=== PATIENT | female | born 1965 | race Caucasian/White ===

== ENCOUNTER 2020-06-21 09:01 | Emergency (ER) | payer BC, SELFPAY ==
[2020-06-21] VITALS (9 sets, daily range): BP systolic 126–142; BP diastolic 63–87; PULSE 56–81; RESP 14–20; TEMP 36.6–36.7; O2SAT 98–100
--- NOTE | ~2020-06-21 | XR_ITS ---
XR chest 2V DATE: 06/21/2020 10:13 INDICATION: Mid chest pain radiating to jaw TECHNIQUE: PA and lateral views COMPARISON: 09/11/2019 PA and lateral chest FINDINGS: Surgical clips overlie the right upper quadrant, likely due to cholecystectomy. Surgical cl ips of both breasts. Normal heart size. No hilar or mediastinal enlargement. No pulmonary infiltrate or consolidation, pul monary vascular congestion, pleural effusion or pneumothorax. IMPRESSION: No active cardiopulmonary disease Reviewed, dictated and finalized at location A.
--- NOTE | 2020-06-21 09:10 | ECG_ITS ---
Measurements Intervals [place] Rate: 68 P: 43 [place]: 176 QRS: 51 QRSD: 80 T: 42 QT: 386 QTc: 411 Interpretive Statements SINUS RHYTHM POSSIBLE LEFT ATRIAL ENLARGEMENT BORDERLINE ECG Electronically Signed On 06-21-2020 11:23:59 CDT by Telly Winters D.O.
[2020-06-21 09:36] LABS: Basophils Percent Auto 0.7 % (0.2-1.2); Eosinophils Absolute Auto 0.1 K/mm3 (0-0.3); Hematocrit 38.9 % (37.0-47.0); Hemoglobin 13.1 g/dL (12.0-15.0); Immature Granulocyte Absolute 0.01 K/mm3 (0.00-0.031); Immature Granulocyte Percent A 0.2 % (0-0.5); Lymphocytes Absolute Auto 1.79 K/mm3 (0.9-3.2); Lymphocytes Percent Auto 39.8 % (18.3-44.2); Mean Corpuscular HGB Conc 33.7 g/dl (32-36); Mean Platelet Volume 8.9 fl (7.4-10.4); Monocytes Absolute Auto 0.5 K/mm3 (0.1-0.6); Neutrophils Absolute Auto 2.1 K/mm3 (1.3-6.7); Neutrophils Percent Auto 47.3 % (45.5-73.1); Platelet Count Result 277 k/mm3 (150-375); Red Blood Count 4.37 M/mm3 (4.2-5.4); Red Cell Distribution Width 11.7 % (11.5-14.5); White Blood Count 4.5 K/mm3 (4.5-10.0)
[2020-06-21 09:47] LABS: Anion Gap 8 mmol/L (8-16); Blood Urea Nitrogen 16 mg/dL (7-17); Calcium 9.7 mg/dL (8.4-10.2); Carbon Dioxide 28 mmol/L (22-30); Chloride 103 mmol/L (98-107); Estimated CRCL calculation 85 ml/min; Estimated Glomerular Filt Rate > 60; Glucose 99 mg/dL (65-105); Potassium 3.7 mmol/L (3.4-5.0); Sodium 139 mmol/L (137-145)
[2020-06-21] MEDS: ASPIRIN 81 MG CHEWABLE TABLET 324 MG PO (09:49)
[2020-06-21 09:50] LABS: INR 0.9; Prothrombin Time 12.1 Seconds (11.1-14.7)
[2020-06-21 09:51] LABS: Partial Thromboplastin Time 26.4 SECONDS (22.3-36.8)
[2020-06-21 09:58] LABS: Troponin I < 0.012 ng/mL (0.000-0.034)
[2020-06-21 10:54] LABS: Alanine Aminotransferase 21 U/L (4-35); Albumin Level 4.5 g/dL (3.5-5.1); Alkaline Phosphatase 81 U/L (38-126); Aspartate Amino Transferase 27 U/L (14-36); Bilirubin,Total 0.6 mg/dL (0.2-1.3); Lipase 102 U/L (23-300)
--- NOTE | 2020-06-21 10:56 | ED.CHESTPAIN ---
HPI - Chest Pain General Chief Complaint: Chest Pain Stated Complaint: chest pain Time Seen by Provider: 06/21/20 09:57 Source: patient Mode of arrival: ambulatory Limitations: no limitations History of Present Illness HPI narrative: This patient is a 54 year old female who presents for an evaluation of substernal chest pain . Patient states she developed chest pain while cutting vegetables. This pain radiates to her neck, jaw and mid back. She reports associated lightheaded, but she denies sob, nasuea, vomiting or diaphoresis. This pain has remained constant and she does not know any exacerbating factors. She has not taken anything for pain. She denies history of cardiac disease. She currently rates her pain 01/20. Related Data Home Medications Medication Instructions Recorded Confirmed pentosan polysulfate sodium mg 09/11/19 09/11/19 [Elmiron] amitriptyline 06/21/20 Allergies Allergy/AdvReac Type Severity Reaction Status Date / Time codeine Allergy Intermediate ITCHING/IRENE Verified 09/11/19 21:52 H Review of Systems Review of Systems: All systems reviewed & are unremarkable except as noted in HPI and below Respiratory: Respiratory: Denies cough Gastrointestinal: Gastrointestinal: Denies abdominal pain, Denies diarrhea, Denies nausea and Denies vomiting Musculoskeletal: Musculoskeletal: Reports back pain Neurologic: Reports dizziness PMFSH Past Medical History Medical History (Updated 06/21/20 @ 13:55 by Jackie Fernández MD) Breast cancer Diverticulitis Interstitial cystitis (chronic) without hematuria Surgical History Surgical History (Updated 06/21/20 @ 11:04 by Jackie Fernández MD) History of cholecystectomy Social History Social History (Updated 09/12/19 @ 02:08 by Rosa Shetty PA-C) Smoking status: Never smoker Alcohol intake: never Substance use: never Gender identity (if verbalized by the patient): Female Exam Const: General: alert Orientation/consciousness: patient oriented x3 Eyes: Pupils: Equal, round and reactive pupils present EOM: EOMs intact bilaterally Resp: Effort & Inspection: normal respiratory effort and no retractions Auscultation: clear to auscultation bilaterally Cardio: Rate: regular rate Rhythm: regular rhythm Heart sounds: no murmurs GI: GI Palp: Yes Soft to palpation, Yes Tenderness to palpation present (GI) (epigastric), No Guarding due to palpation present (GI) and No Rigid due to palpation Skin: General skin exam: normal color Rashes: no rashes Neuro: General: patient oriented x3 and moves all extremities Extrem: General: no pedal edema Other: no calf pain; right lower leg mar Psych: Appearance: grossly normal Affect: Other affect and mood findings present (flat affect) Course Reevaluation(s) Reevaluation #1: Patient has improved. I discussed labs have been unremarkable. Negative labs. She is low risk for ACS so she will be discharged home. She was initially TTP epigastric but no repeat exam no tenderness. She is equal pulses bilaterally and not hypertensive. Her pain does not appear to be tearing to suggest aortic etiology . I discussed discharge plan. Date: 06/21/20 Time: 13:47 Vital Signs Vital signs: Vital Signs Temperature 97.8 F 06/21/20 09:10 Pulse Rate 72 06/21/20 09:10 Respiratory Rate 16 06/21/20 09:10 Blood Pressure 142/81 H 06/21/20 09:10 Pulse Oximetry 100 06/21/20 09:10 Temperature 97.9 F 06/21/20 13:31 Pulse Rate 60 06/21/20 14:26 Respiratory Rate 16 06/21/20 14:26 Blood Pressure 134/80 06/21/20 14:26 Pulse Oximetry 100 06/21/20 14:26 MDM - Chest Pain Lab Data Attestation: I reviewed the patient's lab results. Result diagrams: 06/21/20 09:29 06/21/20 09:29 Labs: Lab Results 06/21/20 06/21/20 06/21/20 Range/Units 09:27 09:28 09:29 WBC 4.5 (4.5-10.0) K/mm3 RBC 4.37 (4.2-5.4) M/mm3 Hgb
[2020-06-21] MEDS: NITROGLYCERIN SL 0.4 MG TABLET SUBLINGUAL (11:06)
[2020-06-21 11:14] LABS: D Dimer 0.27 ug/mL (<0.48)
--- NOTE | 2020-06-21 11:26 | PC.NURSE ---
Patient up to the commode at this time.
[2020-06-21] MEDS: BELLADONNA ALK/PHENOB ELIX 10 ML, MAG HYDROX/ALUMINUM HYD/SIMETH 30 ML, LIDOCAINE HCL 2... PO (12:05)
[2020-06-21 13:16] LABS: Troponin I < 0.012 ng/mL (0.000-0.034)
== END 2020-06-21 14:27 | disposition home or self-care (01) ==
PROVIDERS: Emergency Provider General Practice; PCP Physician Assistant
DX: R07.2 Precordial pain (principal); Z85.3 Personal history of malignant neoplasm of breast; R94.31 Abnormal electrocardiogram [ECG] [EKG]
CPT/HCPCS: 36415; 71046; 80048; 80076; 83690; 84484; 85025; 85380; 85610; 85730; 93005; 99284; A9270

== ENCOUNTER 2020-10-11 07:58 | Emergency (ER) | payer BC, SELFPAY ==
--- NOTE | ~2020-10-11 | CT_ITS ---
EXAMINATION: CT abdomen pelvis w con DATE: 10/11/2020 09:13 INDICATION: Lower abdominal pain. Mid back and flank pain. TECHNIQUE: Computed tomography (CT) of the abdomen and pelvis was performed with 100 mL Omnipaque-350 intravenous contrast. Automated exposure control and iterative reconstruction technique were employe d. The dose-length product was 416.47 mGy-cm. COMPARISON: 09/12/2019 FINDINGS: Minimal discoid atelectasis in the left lower lobe. Heart size is normal. No pericardial or pleural e ffusion. Small sliding-type hiatal hernia. Surgical clips at the bilateral breasts with approximately 19 x 8 mm seroma at the right breast. No interval change in mild intra and extrahepatic biliary duct al dilation likely related to prior cholecystectomy with surgical clips at the gallbladder fossa. 12 mm cyst at the caudal margin of the right hepatic lobe. Pancreas, spleen, bilateral adrenal glands an d right kidney are normal. Again seen are multiple regions of focal scarring in the left kidney consi stent with sequela of prior infection or infarct. Bladder, retroflexed uterus and bilateral adnexa ar e unremarkable. Normal appendix. No bowel obstruction. There are several diverticula along the proxim al sigmoid colon without adjacent inflammatory change to suggest diverticulitis. There appears to be mild diffuse colonic wall thickening suspicious for colitis although specificities decreased by the d ecompressed state of the majority of the colon. No free intraperitoneal gas or fluid. No pathological ly enlarged abdominal or pelvic lymphadenopathy. Small fat-containing umbilical hernia. Negligible at herosclerotic plaque along the normal caliber abdominal aorta. Moderate lumbar and lower thoracic spo ndylosis. Chronic mild anterior wedging at T10-T12. IMPRESSION: 1. Suggestion of diffuse mild colonic wall thickening raising concern for colitis which could be infe ctious, inflammatory or less likely ischemic in etiology. Specificity is decreased by the decompresse d state of the majority of the colon. 2. Scattered left renal cortical atrophy likely sequela of chronic infection or infarction. 3. Small sliding-type hiatal hernia. 4. Small fat-containing umbilical hernia. Reviewed, dictated and finalized at location B. [facility] STEW[facility] IMPRESSION: 1. Suggestion of diffuse mild colonic wall thickening raising concern for colit is which could be infectious, inflammatory or less likely ischemic in etiology. Specificity is decreased by the decompressed state of the majority of the colo n. 2. Scattered left renal cortical atrophy likely sequela of chronic infection or infarction. 3. Small sliding-type hiatal hernia. 4. Small fat-containing umbilical hernia.
[2020-10-11 08:00] VITALS: BP 142/88; PULSE 78; RESP 16; TEMP 36.1; O2SAT 100
--- NOTE | 2020-10-11 08:28 | ECG_ITS ---
Measurements Intervals [place] Rate: 66 P: 27 [place]: 171 QRS: 31 QRSD: 88 T: 41 QT: 390 QTc: 409 Interpretive Statements SINUS RHYTHM INCOMPLETE RIGHT BUNDLE BRANCH BLOCK LOW QRS VOLTAGE IN PRECORDIAL LEADS BORDERLINE ECG Electronically Signed On 10-11-2020 9:01:47 DIAGNOSTIC IMAGING MANAGER by Telly Winters D.O.
[2020-10-11] MEDS: SODIUM CHLORIDE 0.9% IV 1,000 ML 999 ML IV CONT (08:38)
[2020-10-11 08:39] VITALS: BP 139/88; PULSE 81; RESP 14; O2SAT 98
[2020-10-11 08:41] LABS: Basophils Percent Auto 0.4 % (0.2-1.2); Eosinophils Absolute Auto 0.1 K/mm3 (0-0.3); Eosinophils Percent Auto 1.7 % (0-4.4); Hematocrit 43.5 % (37.0-47.0); Hemoglobin 14.4 g/dL (12.0-15.0); Immature Granulocyte Absolute 0.02 K/mm3 (0.00-0.031); Immature Granulocyte Percent A 0.4 % (0-0.5); Lymphocytes Absolute Auto 1.75 K/mm3 (0.9-3.2); Lymphocytes Percent Auto 37.2 % (18.3-44.2); Mean Corpuscular HGB Conc 33.1 g/dl (32-36); Mean Corpuscular Hemoglobin 30.2 pg (26-34); Mean Corpuscular Volume 91.2 fl (80-100); Mean Platelet Volume 8.9 fl (7.4-10.4); Monocytes Absolute Auto 0.4 K/mm3 (0.1-0.6); Monocytes Percent Auto 8.3 % (2.6-8.5); Neutrophils Absolute Auto 2.4 K/mm3 (1.3-6.7); Platelet Count Result 306 k/mm3 (150-375); Red Blood Count 4.77 M/mm3 (4.2-5.4); Red Cell Distribution Width 11.9 % (11.5-14.5); White Blood Count 4.7 K/mm3 (4.5-10.0)
[2020-10-11 08:44] LABS: Add Urine Microscopic? NO; Appearance Urine Clear (Clear); Bilirubin Urine Negative (Negative); Blood Urine Negative (Negative); Color Urine Straw (Yellow); Glucose Urine UA Negative (Negative); Ketones Urine Negative (Negative); Leukocyte Esterase Ur Negative LEU/UL (Negative); Nitrate Urine Negative (Negative); Protein Urine Negative (Negative); Specific Grav Ur 1.009 (1.001-1.035); Urobilinogen Urine Negative mg/dL (<2.0)
[2020-10-11 08:54] LABS: Alanine Aminotransferase 24 U/L (4-35); Albumin Level 4.9 g/dL (3.5-5.1); Alkaline Phosphatase 68 U/L (38-126); Anion Gap 8 mmol/L (8-16); Aspartate Amino Transferase 31 U/L (14-36); Bilirubin,Total 0.9 mg/dL (0.2-1.3); Blood Urea Nitrogen 15 mg/dL (7-17); Calcium 10.1 mg/dL (8.4-10.2); Carbon Dioxide 31 mmol/L (22-30); Chloride 100 mmol/L (98-107); Estimated CRCL calculation 84 ml/min; Estimated Glomerular Filt Rate > 60; Glucose 101 mg/dL (65-105); Lipase 118 U/L (23-300); Potassium 3.7 mmol/L (3.4-5.0); Sodium 139 mmol/L (137-145)
[2020-10-11 08:55] LABS: Lactic Acid Reflex 1.2 mmol/L (0.7-2.1)
[2020-10-11 08:58] LABS: CRP < 0.5 mg/dL (<1.0)
--- NOTE | 2020-10-11 08:59 | ED.BACK ---
HPI - Back Pain/Injury General Chief Complaint: Back Pain/Injury Stated Complaint: bilat flank and abd pain Time Seen by Provider: 10/11/20 08:08 Source: patient Mode of arrival: ambulatory Limitations: no limitations History of Present Illness HPI Narrative: This patient is a 55 year old female who presents for evaluation of bilateral flank pain and abdominal pain. She reports having squeezing pain for 3 days. She reports pain is located bilateral flank and her entire abdomen. She reports associated nausea but no vomiting, diarrhea or fever. She also denies cough, sob. She denies urinary symptoms. She states she was seen by her urologist, and she was told her UA was normal and to follow up with PCP. Related Data Home Medications Medication Instructions Recorded Confirmed pentosan polysulfate sodium mg 09/11/19 09/11/19 [Elmiron] cyclobenzaprine mg 10/11/20 Allergies Allergy/AdvReac Type Severity Reaction Status Date / Time codeine Allergy Intermediate ITCHING/IRENE Verified 10/11/20 08:12 H Review of Systems Review of Systems: All systems reviewed & are unremarkable except as noted in HPI and below Constitutional: Constitutional: Denies chills and Denies fever(s) Respiratory: Respiratory: Denies cough and Denies dyspnea Gastrointestinal: Gastrointestinal: Reports abdominal pain, Denies diarrhea, Reports nausea and Denies vomiting Genitourinary: Genitourinary: Denies hematuria, Denies dysuria and Reports flank pain Musculoskeletal: Musculoskeletal: Reports back pain PMFSH Past Medical History Medical History Breast cancer Diverticulitis Interstitial cystitis (chronic) without hematuria Surgical History Surgical History History of cholecystectomy Social History Social History (Updated 09/12/19 @ 02:08 by Rosa Shetty PA-C) Smoking status: Never smoker Alcohol intake: never Substance use: never Gender identity (if verbalized by the patient): Female Exam Narrative: Exam Narrative: GENERAL: Well-appearing, well-nourished, and in no acute distress. HEAD: Normocephalic, atraumatic EYES: PERRLA and EOMI, conjunctiva clear without discharge THROAT:Mucous membranes moist, Oropharynx normal without erythema, exudate, peritonsillar swelling or fluctuance NECK: Supple, without lymphadenopathy or mass RESPIRATORY: No respiratory distress, Airway patent, Respirations non-labored, Clear to auscultation without rales, rhonchi or wheeze HEART: Regular rate and rhythm. No murmur heard. Normal peripheral pulses. ABDOMEN: Soft, Diffuse, nondistended, normal active bowel sounds. No masses. No rebound or guarding, No organomegaly. EXTREMITIES: No edema, normal strength with full range of motion. SKIN: Warm, dry, normal color without rash NEURO: Alert and oriented x3. CN 2-12 grossly intact. No focal deficits. PSYCH: Normal mood and affect. : General: Yes CVA tenderness Back/Spine/Pelvis: Other: no midline spine tenderness Course Reevaluation(s) Reevaluation #1: I Discussed with patient that labs are unremarkable. I read the CT report to Her regarding left kidney abnormalities and possible colitis. I discussed plan to discharge with antibiotics and follow up with PCP. She will also follow up with her GI. Date: 10/11/20 Time: 11:18 Vital Signs Vital signs: Vital Signs Temperature 97 F L 10/11/20 08:00 Pulse Rate 78 10/11/20 08:00 Respiratory Rate 16 10/11/20 08:00 Blood Pressure 142/88 H 10/11/20 08:00 Pulse Oximetry 100 10/11/20 08:00 Temperature 97 F L 10/11/20 08:00 Pulse Rate 61 10/11/20 10:08 Respiratory Rate 12 10/11/20 10:08 Blood Pressure 144/87 H 10/11/20 10:08 Pulse Oximetry 100 10/11/20 10:08 MDM - Back Pain/Injury Lab Data Attestation: I reviewed the patient's lab results. Result diagrams: 10/11/20 08:
[2020-10-11] MEDS: DICYCLOMINE HCL INJ 20 MG/2 ML VIAL IM (10:07)
[2020-10-11 10:08] VITALS: BP 144/87; PULSE 61; RESP 12; O2SAT 100
== END 2020-10-11 11:44 | disposition home or self-care (01) ==
PROVIDERS: Emergency Provider General Practice; PCP Physician Assistant
DX: K52.9 Noninfective gastroenteritis and colitis, unspecified (principal); Z85.3 Personal history of malignant neoplasm of breast; I45.10 Unspecified right bundle-branch block
CPT/HCPCS: 36415; 74177; 80053; 81003; 81025; 83605; 83690; 85025; 86140; 93005; 96360; 96372; 99284; J0500; J7030; Q9967

== ENCOUNTER 2023-01-08 17:42 | Emergency (ER) | payer OTHER, SELFPAY ==
[2023-01-08 18:07] VITALS: BP 141/88; PULSE 109; RESP 19; TEMP 37.3; O2SAT 100
--- NOTE | 2023-01-08 18:13 | ED.FEMALEGU ---
HPI - Female Genitourinary General Chief complaint: Urogenital-Female Stated complaint: UTI Time Seen by Provider: 01/08/23 18:04 Source: patient and RN notes reviewed Mode of arrival: ambulatory Limitations: no limitations History of Present Illness HPI Narrative: Patient presents today complaining of a 3 day history of lower abdominal discomfort, nausea, and urinary frequency with left low back pain that started today. Denies dysuria, hematuria, urinary frequency. She called her urologist's office twice this week and they could not get her in. History of interstitial cystitis, for which she takes Elmiron. States her current symptoms do not feel like previous IC flares. Patient was on Bactrim, then Augmentin in November for UTI. Related Data Home Medications Medication Instructions Recorded Confirmed pentosan polysulfate sodium 100 mg 100 mg PO DAILY 09/11/19 01/08/23 capsule (Elmiron) Allergies Allergy/AdvReac Type Severity Reaction Status Date / Time codeine Allergy Intermediate ITCHING/IRENE Verified 01/08/23 17:58 H Review of Systems Review of Systems: CONSTITUTIONAL: Denies body aches, fever, chills, or sweats. EYES: Denies visual changes, redness, or discharge. ENT: Denies rhinorrhea, congestion, sore throat, or otalgia. CARDIOVASCULAR: Denies chest pain, palpitations, or edema. RESPIRATORY: Denies cough or dyspnea. GASTROINTESTINAL: Denies vomiting, or diarrhea.+ lower abdominal pain, nausea GENITOURINARY: Denies dysuria or hematuria.+ urgency SKIN: Denies rash, itching, or wounds. MUSCULOSKELETAL: Denies joint pain, or myalgia.+ left low back pain NEUROLOGIC: Denies headache, numbness, tingling, or weakness. PSYCH: Denies depression or anxiety. [facility] Past Medical History Medical History Breast cancer Diverticulitis Interstitial cystitis (chronic) without hematuria Surgical History Surgical History History of cholecystectomy Social History Social History Smoking status: Never smoker Alcohol intake: never Substance use: never Living arrangements: with family Occupation/Education: unemployed Gender identity (if verbalized by the patient): Female Comments At time of signature, I have reviewed and agree with nursing past medical, surgical, social and family history unless otherwise noted. Please see nursing chart for further information. There is no relevant family history pertinent to the presenting complaint Exam Narrative: GENERAL: Well-appearing, well-nourished, and in no acute distress. HEAD: Normocephalic, atraumatic. EYES: EOMI. No redness or drainage. Conjunctivae normal. ENT: Mucous membranes pink and moist. NECK: Normal AROM. CHEST: No respiratory distress. EXTREMITIES: Normal range of motion. No edema. SKIN: Warm, dry, no rash. Capillary refill normal. Normal skin turgor. NEURO: No focal deficits. Alert and oriented x3. Gait steady. PSYCH: Normal affect. No signs of depression or anxiety. Course Course Level of Care: Express Care Visit Vital Signs Vital signs: Vital Signs Temperature 99.2 F 01/08/23 18:07 Pulse Rate 109 H 01/08/23 18:07 Respiratory Rate 19 01/08/23 18:07 Blood Pressure 141/88 H 01/08/23 18:07 Pulse Oximetry 100 01/08/23 18:07 Oxygen Delivery Room Air 01/08/23 18:07 Temperature 99.2 F 01/08/23 18:07 Pulse Rate 109 H 01/08/23 18:07 Respiratory Rate 19 01/08/23 18:07 Blood Pressure 141/88 H 01/08/23 18:07 Pulse Oximetry 100 01/08/23 18:07 Oxygen Delivery Room Air 01/08/23 18:07 Reviewed. Pt has been instructed to follow up with her PCP regarding her elevated blood pressure today. MDM - Female Genitourinary MDM Narrative Medical decision making narrative: Symptoms consistent with acute UTI. Will
== END 2023-01-08 18:22 | disposition home or self-care (01) ==
PROVIDERS: Emergency Provider Nurse Practitioner; PCP Physician Assistant
DX: N30.01 Acute cystitis with hematuria (principal); Z85.3 Personal history of malignant neoplasm of breast
CPT/HCPCS: 81003; 87086; 87088; 99213; G0463

== ENCOUNTER 2023-01-15 10:37 | Observation (INO) | payer OTHER, SELFPAY ==
--- NOTE | ~2023-01-15 | CT_ITS ---
EXAMINATION: CT abdomen pelvis w con DATE: 01/15/2023 12:34 INDICATION: Lower abdominal pain. TECHNIQUE: Computed tomography (CT) of the abdomen and pelvis was performed with 100 mL Omnipaque 350 intravenous contrast. Automated exposure control and iterative reconstruction technique were employe d. The dose-length product was 443.22 mGy-cm. COMPARISON: CT abdomen and pelvis 10/11/2020 FINDINGS: The visualized portions of the lung bases demonstrate mild atelectasis. No pleural effusion . The heart size is normal. No pericardial effusion. There is a small sliding hiatal hernia. There is a 1.8 cm cyst in the liver. There is chronic moderate intrahepatic biliary duct dilatation, likely s econdary to cholecystectomy. There is a chronic 5 mm cyst in the liver. The spleen and pancreas are n ormal. There is a 7 mm cyst in right kidney. There is moderate atrophy of left kidney. A calcificatio n in left kidney is likely parenchymal. There are scattered diverticula in the colon. There is fat st randing around the sigmoid colon with wall thickening and 9 mm intramural abscess, consistent with di verticulitis. No perforation. The appendix is normal. There are no dilated loops of bowel. There is a n umbilical hernia containing fat and robledo of two loops of small bowel. There are no pathologically enlarged lymph nodes. There is no free intraperitoneal fluid. There is moderate lumbar spondylosis. IMPRESSION: 1. Acute sigmoid diverticulitis with 9 mm intramural abscess. No perforation. 2. Umbilical hernia containing robledo of nonobstructed small bowel. Reviewed, dictated and finalized at location A.
[2023-01-15 11:05] VITALS: BP 144/83; PULSE 79; RESP 16; TEMP 36.2; O2SAT 100
[2023-01-15 12:12] LABS: Basophils Percent Auto 0.4 % (0.2-1.2); Eosinophils Absolute Auto 0.1 K/mm3 (0-0.3); Eosinophils Percent Auto 1.7 % (0-4.4); Hematocrit 40.3 % (37.0-47.0); Hemoglobin 13.2 g/dL (12.0-15.0); Immature Granulocyte Absolute 0.03 K/mm3 (0.00-0.031); Immature Granulocyte Percent A 0.4 % (0-0.5); Lymphocytes Absolute Auto 1.66 K/mm3 (0.9-3.2); Mean Corpuscular HGB Conc 32.8 g/dl (32-36); Mean Corpuscular Hemoglobin 29.1 pg (26-34); Mean Platelet Volume 8.7 fl (7.4-10.4); Monocytes Absolute Auto 0.6 K/mm3 (0.1-0.6); Monocytes Percent Auto 7.9 % (2.6-8.5); Neutrophils Absolute Auto 4.5 K/mm3 (1.3-6.7); Neutrophils Percent Auto 65.6 % (45.5-73.1); Platelet Count Result 369 k/mm3 (150-375); Red Blood Count 4.53 M/mm3 (4.2-5.4); Red Cell Distribution Width 11.8 % (11.5-14.5); White Blood Count 6.9 K/mm3 (4.5-10.0)
[2023-01-15 12:15] LABS: Appearance Urine Clear (Clear); Bacteria Urine None Seen /hpf; Bilirubin Urine Negative (Negative); Blood Urine Negative (Negative); Color Urine Yellow (Yellow); Glucose Urine UA Negative (Negative); Ketones Urine Negative (Negative); Leukocyte Esterase Ur Trace LEU/UL (Negative); Nitrate Urine Negative (Negative); Non Pathogenic Casts 0-2; Protein Urine Negative (Negative); RBC Urine 0-2 /hpf (0-2); Specific Grav Ur 1.004 (1.001-1.035); Squamous Epithelial Cell Urine None seen /hpf (Few); Urobilinogen Urine 0.2 mg/dL (<2.0); WBC Urine 0-5 /hpf
[2023-01-15 12:17] LABS: Alanine Aminotransferase 25 U/L (6-35); Albumin Level 4.7 g/dL (3.5-5.1); Alkaline Phosphatase 90 U/L (38-126); Anion Gap 9 mmol/L (8-16); Aspartate Amino Transferase 26 U/L (14-36); Bilirubin,Total 0.6 mg/dL (0.2-1.3); Blood Urea Nitrogen 11 mg/dL (7-17); Calcium 10.1 mg/dL (8.4-10.2); Carbon Dioxide 29 mmol/L (22-30); Chloride 101 mmol/L (98-107); Estimated CRCL calculation 110 ml/min; Estimated Glomerular Filt Rate > 60; Glucose 96 mg/dL (65-110); Potassium 4.1 mmol/L (3.4-5.0); Sodium 139 mmol/L (137-145)
[2023-01-15 12:19] LABS: Add Urine Microscopic? YES
--- NOTE | 2023-01-15 12:52 | ED.GENADULT ---
HPI - General Adult General Chief complaint: Urogenital-Female Stated complaint: urinary pain, blood in urine Time Seen by Provider: 01/15/23 11:44 History of Present Illness HPI narrative: Patient is a 57-year-old female who presents ER with lower abdominal pain. Began having discomfort about a week ago. Has history of interstitial cystitis and thought she may have a UTI. Was placed on cephalexin. Symptoms have not improved. She does have some urinary frequency. No dysuria. No fevers or chills or sweats. Patient reports history of diverticulitis and noticed pain became more localized on the left side over the last day. No alleviating factors for her discomfort. No nausea vomiting or diarrhea. Related Data Home Medications Medication Instructions Recorded Confirmed pentosan polysulfate sodium 100 mg 100 mg PO DAILY 09/11/19 01/08/23 capsule (Elmiron) Allergies Allergy/AdvReac Type Severity Reaction Status Date / Time codeine Allergy Intermediate ITCHING/IRENE Verified 01/15/23 10:38 H Review of Systems Review of Systems: All systems reviewed & are unremarkable except as noted in HPI and below Constitutional: Constitutional: Denies chills, Denies fatigue and Denies fever(s) ENT: Denies nasal congestion and Denies sore throat Cardiovascular: Cardiovascular: Denies chest pain, Denies rapid heart rate and Denies radiating jaw, neck or arm pain Respiratory: Respiratory: Denies cough and Denies dyspnea Gastrointestinal: Gastrointestinal: Reports abdominal pain, Denies diarrhea, Denies nausea and Denies vomiting Genitourinary: Genitourinary: Reports hematuria, Reports nocturia and Denies urinary incontinence PMFSH Past Medical History Medical History Breast cancer Diverticulitis Interstitial cystitis (chronic) without hematuria Surgical History Surgical History History of cholecystectomy Social History Social History Smoking status: Never smoker Alcohol intake: never Substance use: never Living arrangements: with family Occupation/Education: unemployed Gender identity (if verbalized by the patient): Female Exam Narrative: GENERAL: Well-appearing, well-nourished, and in no acute distress. HEAD: Normocephalic, atraumatic. EYES: PERRL and EOMI. ENT: Mucous membranes moist. CHEST: Clear to auscultation. No respiratory distress. HEART: Regular rate and rhythm. Normal peripheral pulses. ABDOMEN: Soft, tender palpation bilateral lower quadrants with guarding on the left side and significant tenderness on the right as well, nondistended. EXTREMITIES: Normal range of motion. No edema. SKIN: Warm, dry, no rash. NEURO: Alert and oriented x3. PSYCH: Normal mood and affect. Course Course Emergency Course: Discussed the results of imaging with the patient. Discussed also with general surgery who will admit the patient primarily for IV antibiotics. Request the patient be kept n.p.o. with ice chips. Vital Signs Vital signs: Vital Signs Temperature 97.1 F L 01/15/23 11:05 Pulse Rate 79 01/15/23 11:05 Respiratory Rate 16 01/15/23 11:05 Blood Pressure 144/83 H 01/15/23 11:05 Pulse Oximetry 100 01/15/23 11:05 Oxygen Delivery Room Air 01/15/23 11:05 Temperature 97.1 F L 01/15/23 11:05 Pulse Rate 60 01/15/23 13:43 Respiratory Rate 16 01/15/23 13:43 Blood Pressure 157/86 H 01/15/23 13:43 Pulse Oximetry 100 01/15/23 13:43 Oxygen Delivery Room Air 01/15/23 11:05 Medical Decision Making Vital Signs Vital Signs: Vital Signs Temperature 97.1 F L 01/15/23 11:05 Pulse Rate 79 01/15/23 11:05 Respiratory Rate 16 01/15/23 11:05 Blood Pressure 144/83 H 01/15/23 11:05 Pulse Oximetry 100 01/15/23 11:05 Oxygen Delivery Room Air 01/15/23 11:05
[2023-01-15] MEDS: PIPERACILLN/TAZ 3.375GM/NS50ML 3.375 GM/50 ML BAG IVPB ×2 (13:05→17:28)
[2023-01-15 13:43] VITALS: BP 157/86; PULSE 60; RESP 16; O2SAT 100
--- NOTE | 2023-01-15 14:59 | ADMGEN ---
This patient, Alana Olguin, was admitted to [facility] Room 300-01. Patient/family oriented to hospital policies and general routines including ID bracelet, bed and alarms, visiting hours, pain management, procedures, bathroom and other care routines, personal items, smoking policy, room service/diet, and visiting hours. Information on how to activate the Rapid Response Team has been discussed. Patient/Family are encouraged to report perceived risks to care and to ask questions if they do not understand what they are told or what they should do.
--- NOTE | 2023-01-15 15:26 | PM.IMHP ---
H&P: HPI History of Present Illness Date/Time: 01/15/23 15:26 Chief Complaint: Lower abdominal pain Narrative: The patient is a 57-year-old woman who has a chronic diagnosis of interstitial cystitis. She started having lower abdominal pain about a week ago. It was not particularly severe but was persistent. She thought this was related to her interstitial cystitis. She took a full course of oral antibiotics which she just finished yesterday. Pain was no better in fact it seemed in some ways worse. Since her pain was no better and her urine culture had been negative, she decided to come to the emergency room today. In the emergency room she was noted to have normal vital signs. Her white blood cell count and urinalysis were also normal. She did have tenderness low, almost suprapubic, in both lower quadrants with guarding. She had a CT scan of the abdomen pelvis that showed evidence of sigmoid diverticulitis with a 9 mm intramural abscess. Patient has been started on IV Zosyn antibiotics. She is admitted now for further care. She has had at least 2 episodes of diverticulitis in the past. Some old records show an episode in 2017. She reports having had a colonoscopy in [address] Ha at [facility]. The colonoscopy was negative for any polyps. Review of Systems Review of Systems: All systems reviewed & are unremarkable except as noted in HPI and below (HPI and those items noted below) Constitutional: Constitutional: Denies chills and Denies fever(s) Cardiovascular: Cardiovascular: Denies chest pain, Denies diaphoresis, Denies dyspnea and Denies paroxysmal nocturnal dyspnea Respiratory: Respiratory: Denies chest congestion, Denies cough and Denies dyspnea Integumentary/Breasts: Skin/Breast: Denies lesions and Denies rash [facility] Past Medical History Medical History (Updated 01/15/23 @ 17:21 by Catrachito Arce MD) Diverticulitis Interstitial cystitis (chronic) without hematuria Surgical History Surgical History (Updated 01/15/23 @ 17:25 by Catrachito Arce MD) Breast cancer Status post lumpectomy and axillary dissection with postoperative radiation therapy and chemotherapy. History of cholecystectomy Laparoscopic cholecystectomy 2009 at [facility] Social History Social History Smoking status: Never smoker Alcohol intake: never Substance use: never Substance use type: does not use Lack of Transportation: No Lack of Food: Never True Current Housing: I Have Housing Concerned About Future Housing: No Difficulty Paying Gas/Electric Bills: No Difficulty Paying for Meds: No Currently Unemployed: No Education: Don't Know Difficulty w/ Childcare or Family Care: No Living arrangements: with family Occupation/Education: unemployed Gender identity (if verbalized by the patient): Female Spiritual care concerns: No Meds Home Medications and Allergies Home Medications Medication Instructions Recorded Confirmed Type pentosan polysulfate sodium 100 mg 100 mg PO DAILY 09/11/19 01/15/23 History capsule (Elmiron) Allergies Allergy/AdvReac Type Severity Reaction Status Date / Time codeine Allergy Intermediate ITCHING/IRENE Verified 01/15/23 10:38 H Vital Signs Vital Signs - 24 hr 01/15/23 11:05 01/15/23 13:43 Temperature 36.2 C L Pulse Rate 79 60 Respiratory Rate 16 16 Blood Pressure 144/83 H 157/86 H Pulse Oximetry 100 100 Oxygen Delivery Room Air Exam Const: General: cooperative, comfortable, no acute distress, alert and awake Nutritional Appearance: well nourished Orientation/consciousness: patient oriented x3 and No confusion HENMT: Head: normocephalic and atraumatic Mouth: Yes Normal oral and palatal mucosa present Eyes: Conjunctivae: conjunctivae normal Pupils: Equal, round and reactive pupils present EOM: EOMs intact bilaterally Neck: Neck: normal visual inspection, no l
[2023-01-15] MEDS: MORPHINE SULFATE (*CRX) 4 MG/ML INJ 2 MG IV PUSH ×2 (15:47→20:01)
[2023-01-15] MEDS: SODIUM CHLORIDE 0.9% IV 1,000 ML 125 ML IV CONT (15:47)
[2023-01-15 21:50] VITALS: BP 144/77; PULSE 61; RESP 18; TEMP 36.2; O2SAT 99
[2023-01-16] MEDS: SODIUM CHLORIDE 0.9% IV 1,000 ML 125 ML IV CONT ×2 (00:04→10:23)
[2023-01-16] MEDS: PIPERACILLN/TAZ 3.375GM/NS50ML 3.375 GM/50 ML BAG IVPB ×4 (00:04→17:23)
[2023-01-16 05:46] VITALS: BP 137/62; PULSE 77; RESP 16; TEMP 36.2; O2SAT 97
[2023-01-16] MEDS: ONDANSETRON INJ 4 MG/2 ML VIAL IV PUSH (06:36)
[2023-01-16 08:50] LABS: Hematocrit 38.1 % (37.0-47.0); Hemoglobin 12.3 g/dL (12.0-15.0); Mean Corpuscular HGB Conc 32.3 g/dl (32-36); Mean Corpuscular Hemoglobin 29.4 pg (26-34); Mean Corpuscular Volume 91.1 fl (80-100); Mean Platelet Volume 8.9 fl (7.4-10.4); Platelet Count Result 290 k/mm3 (150-375); Red Blood Count 4.18 M/mm3 (4.2-5.4); Red Cell Distribution Width 11.9 % (11.5-14.5); White Blood Count 5.4 K/mm3 (4.5-10.0)
[2023-01-16 09:14] LABS: Anion Gap 7 mmol/L (8-16); Blood Urea Nitrogen 10 mg/dL (7-17); Calcium 9.2 mg/dL (8.4-10.2); Carbon Dioxide 30 mmol/L (22-30); Chloride 104 mmol/L (98-107); Estimated CRCL calculation 85 ml/min; Estimated Glomerular Filt Rate > 60; Glucose 95 mg/dL (65-110); Potassium 4.1 mmol/L (3.4-5.0); Sodium 141 mmol/L (137-145)
[2023-01-16] MEDS: ENOXAPARIN 40 MG/0.4 ML SYRINGE SUB-Q (10:23)
--- NOTE | 2023-01-16 11:21 | PM.PNGS ---
Progress Note: A&P Assessment and Plan (1) Diverticulitis of intestine with abscess: Qualifiers: Diverticulitis bleeding: without bleeding Diverticulitis site: large intestine Qualified Code(s): K57.20 - Diverticulitis of large intestine with perforation and abscess without bleeding Code(s): K57.80 - Diverticulitis of intestine, part unspecified, with perforation and abscess without bleeding Status: Acute Assessment and Plan: Start full liquids, continue IV antibiotics. Making progress. (2) Interstitial cystitis (chronic) without hematuria: Code(s): N30.10 - Interstitial cystitis (chronic) without hematuria Status: Chronic Subjective Subjective Date/Time Seen: 01/16/23 11:21 Patient reports: feels better, pain is less, bowel movement, nausea and afebrile Review of Systems Review of Systems: All systems reviewed & are unremarkable except as noted in HPI and below (HPI) Exam Const: General: comfortable and no acute distress Orientation/consciousness: patient oriented x3 GI: Inspection: non-distended GI Palp: Yes Soft to palpation, Yes Tenderness to palpation present (GI) (Much less tender in the suprapubic area both lower quadrants.), No Guarding due to palpation present (GI) and No Rebound tenderness present Auscultation: normal bowel sounds Neuro: General: patient oriented x3 and no focal motor deficits Extrem: General: no calf tenderness and no edema Psych: Affect: normal affect Insight: Good insight present (Psych) Judgement: Good judgement present (Psych) Objective Data Vital Signs Vital Signs: Vital Signs - 24 hr 01/15/23 13:43 01/15/23 14:59 01/15/23 20:00 Temperature Pulse Rate 60 Respiratory Rate 16 Blood Pressure 157/86 H Pulse Oximetry 100 Oxygen Delivery Room Air Room Air 01/15/23 21:50 01/16/23 05:46 01/16/23 08:00 Temperature 36.2 C L 36.2 C L Pulse Rate 61 77 Respiratory Rate 18 16 Blood Pressure 144/77 H 137/62 Pulse Oximetry 99 97 Oxygen Delivery Room Air Intake/Output Intake/Output: Intake & Output 01/13/23 01/14/23 01/15/23 01/16/23 23:59 23:59 23:59 23:59 Intake Total 1100 1150 Output Total 2100 Balance 1100 -950 Meds/Results Medications: Active Medications Generic Name Dose Route Start Last Admin Trade Name Freq PRN Reason Stop Dose Admin Enoxaparin Sodium 40 mg 01/16/23 09:00 01/16/23 10:23 Enoxaparin 40 Mg/0.4 Ml Syringe SUB-Q 40 mg DAILY VLADISLAV Administration Piperacillin/Tazobactam/Dextrose 3.375 gm in 50 mls @ 100 mls/hr 01/15/23 18:00 01/16/23 06:06 Zosyn 3.375 Gm/Ns 50 Ml IVPB 100 mls/hr Q6HR VLADISLAV Administration Sodium Chloride 1,000 mls @ 80 mls/hr 01/15/23 13:15 01/16/23 10:23 Normal Saline Iv IV CONT 125 mls/hr .[id number] VLADISLAV Administration Morphine Sulfate 2 mg 01/15/23 13:11 01/15/23 20:01 Morphine Sulfate (*Crx) 4 Mg/Ml Inj IV PUSH 2 mg Q2H PRN Administration Pain Rated 7-10 Ondansetron HCl 4 mg 01/15/23 13:11 01/16/23 06:36 Ondansetron Inj 4 Mg/2 Ml Vial IV PUSH 4 mg Q4H PRN Administration Nausea Radiology Results: ITS Impressions Abdomen/Pelvis CT 01/15/23 12:37 IMPRESSION: 1. Acute sigmoid diverticulitis with 9 mm intramural abscess. No perforation. 2. Umbilical hernia containing robledo of nonobstructed small bowel. Labs Labs: Laboratory Results - last 24 hr 01/15/23 01/15/23 01/16/23 11:58 11:59 08:28 WBC 6.9 5.4 RBC 4.53 4.18 L Hgb 13.2 12.3 Hct 40.3 38.1 MCV 89.0 91.1 MCH 29.1 29.4 MCHC 32.8 32.3 RDW 11.8 11.9 Plt Count 369 290 MPV 8.7 8.9 Immature Gran % (Auto) 0.4 Neut % (Auto) 65.6 Lymph % (Auto) 24.0 Island % (Auto) 7.9 Eos % (Auto) 1.7 Baso % (Auto) 0.4 Lymph # (Auto) 1.66 Island # (Auto) 0.6 Eos # (Auto) 0.1 Baso # (Auto) 0.0 Abs Immat Gran (auto) 0.03 Absolute Neuts (auto) 4.5 Absolute Nucleated
[2023-01-16 14:00] VITALS: BP 136/78; PULSE 78; RESP 16; TEMP 36.1; O2SAT 99
[2023-01-16 21:45] VITALS: BP 127/84; PULSE 59; RESP 16; TEMP 36.8; O2SAT 100
[2023-01-17] MEDS: PIPERACILLN/TAZ 3.375GM/NS50ML 3.375 GM/50 ML BAG IVPB ×2 (00:01→05:49)
[2023-01-17 06:00] VITALS: BP 128/67; PULSE 76; RESP 16; TEMP 36.3; O2SAT 98
[2023-01-17 06:30] LABS: Hemoglobin 11.5 g/dL (12.0-15.0); Mean Corpuscular HGB Conc 32.9 g/dl (32-36); Mean Corpuscular Hemoglobin 29.6 pg (26-34); Mean Corpuscular Volume 90.2 fl (80-100); Platelet Count Result 296 k/mm3 (150-375); Red Blood Count 3.88 M/mm3 (4.2-5.4); Red Cell Distribution Width 11.9 % (11.5-14.5); White Blood Count 4.4 K/mm3 (4.5-10.0)
[2023-01-17 06:56] LABS: Anion Gap 7 mmol/L (8-16); Blood Urea Nitrogen 7 mg/dL (7-17); Calcium 9.1 mg/dL (8.4-10.2); Carbon Dioxide 28 mmol/L (22-30); Chloride 105 mmol/L (98-107); Estimated CRCL calculation 96 ml/min; Estimated Glomerular Filt Rate > 60; Glucose 100 mg/dL (65-110); Potassium 3.8 mmol/L (3.4-5.0); Sodium 140 mmol/L (137-145)
[2023-01-17 08:00] VITALS: PULSE 76; RESP 16; O2SAT 98
[2023-01-17] MEDS: ENOXAPARIN 40 MG/0.4 ML SYRINGE SUB-Q (09:15)
--- NOTE | 2023-01-17 09:56 | PM.DS ---
DS: Admitting Diagnosis Discharge Date 01/17/2023 Admitting Diagnosis Sigmoid diverticulitis with 9 mm intramural abscess Chronic interstitial cystitis Asymptomatic non palpable umbilical hernia noted on CT scan DS: Discharge Diagnosis Discharge Diagnosis (1) Diverticulitis of intestine with abscess: Qualifiers: Diverticulitis bleeding: without bleeding Diverticulitis site: large intestine Qualified Code(s): K57.20 - Diverticulitis of large intestine with perforation and abscess without bleeding Code(s): K57.80 - Diverticulitis of intestine, part unspecified, with perforation and abscess without bleeding Status: Acute Assessment and Plan: Patient responded nicely to bowel rest and IV antibiotics. She was able to be discharged on a low-fiber diet and oral antibiotics on 01/17/2023. (2) Interstitial cystitis (chronic) without hematuria: Code(s): N30.10 - Interstitial cystitis (chronic) without hematuria Status: Chronic (3) Umbilical hernia without mention of obstruction or gangrene: Qualifiers: Obstruction and gangrene presence: without obstruction or gangrene Qualified Code(s): K42.9 - Umbilical hernia without obstruction or gangrene Code(s): K42.9 - Umbilical hernia without obstruction or gangrene Status: Chronic DS: Summary Hospital Course Hospital Course: Patient is a 57-year-old woman who presented after a week of abdominal pain. She had been started on oral antibiotics and finished a course of oral antibiotics without any improvement. She has a history of chronic interstitial cystitis and thought this was a bladder infection. Her urinalysis and culture were negative. She came to the emergency room and was noted to have tenderness in the suprapubic area in both lower quadrants. She had a normal white blood cell count. CT scan showed sigmoid diverticulitis with an intramural small abscess. She responded to oral antibiotics nicely. She was initially on bowel rest and then started on full liquids on 01/16/2023. She did well and was pain free with a normal abdominal exam on 01/17/2023. She was discharged on a low-fiber diet 01/17/2023 with follow-up in Dr. Rivera office in 2 weeks. Status at Discharge Overall status at discharge: patient is progressing back to baseline Time Spent with Patient Time attestation: Total time spent providing and/or coordinating discharge services: Time spent: Less than 30 minutes DS: Data Data Completed and Pending Labs on day of discharge: Labs from last 24 hours 01/17/23 05:46 WBC 4.4 L RBC 3.88 L Hgb 11.5 L Hct 35.0 L MCV 90.2 MCH 29.6 MCHC 32.9 RDW 11.9 Plt Count 296 MPV 9.0 Sodium 140 Potassium 3.8 Chloride 105 Carbon Dioxide 28 Anion Gap 7 L BUN 7 Creatinine 0.70 Estim Creat Clear Calc 96 Estimated GFR > 60 Glucose 100 Calcium 9.1 Discharge Plan Discharge Attending physician on discharge: Catrachito Arce Discharging Clinician: Catrachito Arce Anticipated Discharge Date/Time: 01/17/23 13:13 Patient Disposition: Home, Self-Care Activity: may shower and as tolerated Diet: low fiber Discharge Instructions: Ambulate 3-4 times per day Resume usual home medications Take antibiotics until they are done. See Dr. Arce in 2-3 weeks Stay on low-fiber diet until you see Dr. Arce in the office Patient Instructions: Antibiotic Form Stand Alone Forms: General Discharge Information Follow-up/Referrals: Catrachito Arce MD [Physician] - 2 Weeks Discharge Medications: New amoxicillin-pot clavulanate 875-125 mg tablet 1 tablet PO Q12H Qty: 14 0RF Continued Elmiron 100 mg capsule 100 mg PO DAILY Date of admission: 01/15/23 13:11 Primary Care Provider: RhodaLoni Admitting Provider: Catrachito Arce Attending physician on admission: Catrachito Arce Condition: Improved
== END 2023-01-17 11:20 | disposition home or self-care (01) ==
LOC: ANHED 14:39 → ANH3MEDSUR 14:42
PROVIDERS: Admitting Provider Surgery; Emergency Provider Emergency Medicine; PCP Physician Assistant; Visit Provider Surgery
DX: K57.20 Diverticulitis of large intestine with perforation and abscess without bleeding (principal); N30.10 Interstitial cystitis (chronic) without hematuria; K42.9 Umbilical hernia without obstruction or gangrene; Z79.899 Other long term (current) drug therapy
CPT/HCPCS: 36415; 74177; 80048; 80053; 81001; 85025; 85027; 96361; 96365; 96372; 96375; 96376; 99285; G0378; J1650; J2270; J2405; J2543; J7030; Q9967

== ENCOUNTER 2023-02-05 06:34 | Outpatient (CLI) | payer OTHER, SELFPAY ==
--- NOTE | ~2023-02-05 | CT_ITS ---
EXAMINATION: CT abdomen pelvis w con INDICATION: Diverticulitis of the large intestine with perforation TECHNIQUE: Computed tomographic images of the abdomen and pelvis were obtained after the administrati on of 100 cc of Omnipaque 350 intravenous contrast. The dose-length product (DLP) was 535.12 mGy-cm. Automated exposure control and iterative reconstruction technique were employed. COMPARISON: 01/15/2023 FINDINGS: Surgical changes are noted in the breasts. Minimal dependent atelectasis is present in the lung bases. The heart size is normal. The gallbladder is surgically absent. There is chronic moderate enlargement of the common bile duct and central intrahepatic ducts which is likely due to post vikas cystectomy state. There is a 1.8 cm cyst of the right hepatic lobe. The spleen spleen, adrenal glands , and pancreas are normal. Cysts of the right kidney measure up to 1.2 cm. There are areas of cortica l scarring in the left kidney. There is a 2 mm nonobstructing stone of the left kidney. No pathologic ally enlarged abdominal or pelvic lymph nodes are identified. Previously described wall thickening of the sigmoid colon has nearly completely resolved. The intramural abscess is no longer evident. There are no dilated loops of bowel. There is moderate lumbar spondylosis. IMPRESSION: 1. Resolved intramural abscess of the sigmoid colon and near complete resolution of diverticulitis. Reviewed, dictated and finalized at location A. IMPRESSION: 1. Resolved intramural abscess of the sigmoid colon and near complete resolutio n of diverticulitis.
== END 2023-02-05 06:35 | disposition home or self-care (01) ==
LOC: ANHIMG 06:40
PROVIDERS: PCP Physician Assistant; Visit Provider Surgery
DX: K57.20 Diverticulitis of large intestine with perforation and abscess without bleeding (principal)
CPT/HCPCS: 74177; Q9967

== ENCOUNTER 2023-04-05 09:40 | Day surgery (SDC) | payer OTHER, SELFPAY ==
[2023-03-24 11:05] VITALS: BMI 27.1
[2023-03-25 08:16] VITALS: BMI 26.5
--- NOTE | 2023-04-04 13:00 | PM.HPGS ---
History of Present Illness History of Present Illness Consent: Risks, benefits, and alternatives have been discussed and questions answered. Patient agrees to proceed with procedure. Chief complaint: Diverticulitis Narrative: Alana Olguin is a 57 year old female who was hospitalized in late January with acute diverticulitis.? She had presented to the emergency room thinking she had recurrence of urinary tract infection.? She had fact just been treated for suspected UTI with antibiotics when the symptoms developed.? She did have tenderness low, almost suprapubic, in both lower quadrants with guarding.? She had a CT scan of the abdomen pelvis that showed evidence of sigmoid diverticulitis with a 9 mm intramural abscess.? Patient has been started on antibiotics.?? She has had at least 2 episodes of diverticulitis in the past.? Some old records show an episode in 2017.? She reports having had a colonoscopy in [address] Ha at [facility]. Review of Systems Review of Systems: All systems reviewed & are unremarkable except as noted in HPI and below PMFSH Past Medical History Medical History Diverticulitis Interstitial cystitis (chronic) without hematuria Surgical History Surgical History Breast cancer Status post lumpectomy and axillary dissection with postoperative radiation therapy and chemotherapy. History of cholecystectomy Laparoscopic cholecystectomy 2009 at [facility] Social History Social History Smoking status: Never smoker Alcohol intake: never Substance use: never Substance use type: does not use Lack of Transportation: No Lack of Food: Never True Current Housing: I Have Housing Concerned About Future Housing: No Difficulty Paying Gas/Electric Bills: No Difficulty Paying for Meds: No Currently Unemployed: No Education: Don't Know Difficulty w/ Childcare or Family Care: No Living arrangements: with family Occupation/Education: unemployed Gender identity (if verbalized by the patient): Female Spiritual care concerns: No Meds Home Medications and Allergies Home Medications Medication Instructions Recorded Confirmed Type pentosan polysulfate sodium 100 mg 100 mg PO QID 09/11/19 04/05/23 History capsule (Elmiron) Bifidobacterium infantis 4 mg 4 mg PO DAILY 03/25/23 04/05/23 History capsule (Align) cholecalciferol (vitamin D3) 50 50 mcg PO DAILY 03/25/23 04/05/23 History mcg (2,000 unit) capsule (Vitamin D3) lactulose 10 gram/15 mL oral 10 g PO DAILY 03/25/23 04/05/23 History solution multivit with minerals-iron 18 1 tablet PO DAILY 03/25/23 04/05/23 History mg-folic ac 400 mcg-vit K 25 mcg tablet (Adults Multivitamin) omega 2-zjx-oju-fish oil 120 1 cap PO DAILY 03/25/23 04/05/23 History mg-180 mg-500 mg capsule (Fish Oil) Allergies Allergy/AdvReac Type Severity Reaction Status Date / Time codeine Allergy Intermediate ITCHING/IRENE Verified 04/05/23 10:02 H Exam Const: General: alert Orientation/consciousness: patient oriented x3 Resp: Auscultation: clear to auscultation bilaterally Cardio: Rhythm: regular rhythm GI: GI Palp: Yes Soft to palpation and No Tenderness to palpation present (GI) Neuro: General: patient oriented x3 Assessment and Plan Assessment and plan (1) Diverticulitis of intestine with abscess: Qualifiers: Diverticulitis bleeding: without bleeding Diverticulitis site: large intestine Qualified Code(s): K57.20 - Diverticulitis of large intestine with perforation and abscess without bleeding Code(s): K57.80 - Diverticulitis of intestine, part unspecified, with perforation and abscess without bleeding Status: Acute Assessment and Plan: Colonoscopy with possible biopsy or polypectomy or cautery or
--- NOTE | 2023-04-05 07:09 | P.PNAN_ITS ---
Anes - Initial Pre Proc Eval Procedure: Operation Date: 04/05/23 14:00 Proposed Procedures p Diagnostic Colonoscopy - Nithin Buck MD Date/Time: 04/05/23 07:09 Surgeon: Nithin Buck MD Pre Op Diagnosis: Diverticulitis Patient Data Age: 57 Gender: F Height: 1.78 m Weight: 84 kg Allergies Allergy/AdvReac Type Severity Reaction Status Date / Time codeine Allergy Intermediate ITCHING/IRENE Verified 04/05/23 10:02 H Home Medications Medication Instructions Recorded Confirmed Type pentosan polysulfate sodium 100 mg 100 mg PO QID 09/11/19 04/05/23 History capsule (Elmiron) Bifidobacterium infantis 4 mg 4 mg PO DAILY 03/25/23 04/05/23 History capsule (Align) cholecalciferol (vitamin D3) 50 50 mcg PO DAILY 03/25/23 04/05/23 History mcg (2,000 unit) capsule (Vitamin D3) lactulose 10 gram/15 mL oral 10 g PO DAILY 03/25/23 04/05/23 History solution multivit with minerals-iron 18 1 tablet PO DAILY 03/25/23 04/05/23 History mg-folic ac 400 mcg-vit K 25 mcg tablet (Adults Multivitamin) omega 3-iai-vkr-fish oil 120 1 cap PO DAILY 03/25/23 04/05/23 History mg-180 mg-500 mg capsule (Fish Oil) dicyclomine 10 mg capsule 10 mg PO TID #90 caps 04/05/23 Rx Patient hx anesthesia problems: none Family hx anesthesia problems: none Results Review: All pre-operative results and documents have been reviewed as part of the pre- operative evaluation. FOR[facility]LY [facility], [facility] Past Medical History Medical History Diverticulitis Interstitial cystitis (chronic) without hematuria Surgical History Surgical History Breast cancer Status post lumpectomy and axillary dissection with postoperative radiation therapy and chemotherapy. History of cholecystectomy Laparoscopic cholecystectomy 2009 at [facility] Social History Social History Smoking status: Never smoker Alcohol intake: never Substance use: never Substance use type: does not use Lack of Transportation: No Lack of Food: Never True Current Housing: I Have Housing Concerned About Future Housing: No Difficulty Paying Gas/Electric Bills: No Difficulty Paying for Meds: No Currently Unemployed: No Education: Don't Know Difficulty w/ Childcare or Family Care: No Living arrangements: with family Occupation/Education: unemployed Gender identity (if verbalized by the patient): Female Spiritual care concerns: No Anes - Eval Final PreProcedure Day of Procedure 04/05/23 07:09 Patient weight: overweight Heart: regular rate and rhythm Lungs: clear to auscultation Airway: Mallampati scale class II Neurological: alert and oriented Last oral intake: >/= 8 hours ASA classification: II Emergent: no Anesthetic plan: proceed Anesthesia type and monitoring: general GIVS and standard monitoring Results Review: All pre-operative results and documents have been reviewed as part of the pre- operative evaluation. Informed Consent: The patient's anesthetic plan and its attendant risks and benefits were discussed with the patient/family/POA. Questions were solicited and answers pro vided to the satis
[2023-04-05 10:04] VITALS: BP 142/82; PULSE 66; RESP 16; TEMP 37; O2SAT 100
[2023-04-05] MEDS: LACTATED RINGERS 1,000 ML 150 ML IV CONT (10:30)
[2023-04-05 10:52] VITALS: BP 117/55; PULSE 85; RESP 16; O2SAT 97
[2023-04-05 11:02] VITALS: BP 124/67; PULSE 63; RESP 18; O2SAT 100
[2023-04-05 11:12] VITALS: BP 146/77; PULSE 85; RESP 20; O2SAT 97
--- NOTE | 2023-04-05 14:01 | WPDANESPN ---
Anes - Prog Note Post-Op Date/Time: 04/05/23 14:01 Cardiovascular status: normal Respiratory status: normal Airway patency: baseline Mental status: baseline Post-Op hydration status: normal Vital Signs: Last Vital Signs Temp 37.0 C 04/05/23 10:04 Pulse 85 04/05/23 11:12 Resp 20 04/05/23 11:12 BP 146/77 H 04/05/23 11:12 Pulse Ox 97 04/05/23 11:12 O2 Del Method Room Air 04/05/23 11:12 Pain Score (VAS): 0 I/O: Intake & Output 04/04/23 04/05/23 04/05/23 23:59 07:59 15:59 Intake Total 300 Balance 300 Post-procedural complaints: none Patient Feedback: Patient satisfied with anesthetic care. Other Findings: Patient vital signs back to baseline. Patient denies nausea and vomiting. Patient's pain under control. Patient OK for discharge.
== END 2023-04-05 11:39 | disposition home or self-care (01) ==
PROVIDERS: PCP Physician Assistant; Visit Provider Internal Medicine Gastroenterology
PROC: 0DJD8ZZ Inspection of Lower Intestinal Tract, Via Natural or Artificial Opening Endoscopic (ICD-10-PCS; CPT 45378; principal; 2023-04-05 14:00)
DX: K57.20 Diverticulitis of large intestine with perforation and abscess without bleeding (principal)
CPT/HCPCS: 45378

== ENCOUNTER 2024-03-03 08:42 | Outpatient (CLI) | payer OTHER, SELFPAY ==
--- NOTE | ~2024-03-03 | XR_ITS ---
EXAMINATION: XR hip RT 2V w AP pelvis DATE: 03/03/2024 09:02 INDICATION: Unilateral primary osteoarthritis, right hip. TECHNIQUE: An anteroposterior view of the pelvis and 2 views of right hip were obtained. COMPARISON: Pelvis radiograph 05/11/2006 FINDINGS: Bone alignment is normal. No fracture. There is moderate right hip osteoarthritis and mild left hip osteoarthritis. IMPRESSION: 1. Moderate right hip osteoarthritis and mild left hip osteoarthritis. Reviewed, dictated and finalized at location A.
== END 2024-03-03 08:43 | disposition home or self-care (01) ==
PROVIDERS: PCP Physician Assistant; Visit Provider Orthopaedic Surgery
DX: M16.0 Bilateral primary osteoarthritis of hip (principal)
CPT/HCPCS: 73502

== ENCOUNTER 2024-04-03 05:23 | Emergency (ER) | payer OTHER, SELFPAY ==
--- NOTE | ~2024-04-03 | CT_ITS ---
EXAMINATION: CT abdomen pelvis w con DATE: 04/03/2024 06:46 INDICATION: Right lower quadrant abdominal pain TECHNIQUE: Computed tomography (CT) of the abdomen and pelvis was performed with 100 mL Omnipaque-350 intravenous contrast. Automated exposure control and iterative reconstruction technique were employe d. The dose-length product was 371.22 mGy-cm. COMPARISON: None FINDINGS: Minimal linear atelectasis/scarring in the bilateral lower lungs. Heart size is normal. No pericardia l or pleural effusion. Small sliding-type hiatal hernia. Postoperative changes at the bilateral breas ts. Unchanged intra and extra hepatic biliary ductal dilation which could be related to prior cholecy stectomy with surgical clips the gallbladder fossa. The common bile duct appears to taper distally at the head of the pancreas without evident obstructing stones or mass. There are couple hepatic cysts the larger measuring 2.4 cm. Subcentimeter low-attenuation splenic cyst or hemangioma. Pancreas and b ilateral adrenal glands are normal. Couple cysts in the right kidney the larger measuring 12 mm. Mild to moderate atrophy and scattered cortical scarring at the left kidney likely sequela prior infectio n or infarction. 2-3 mm parenchymal calcification versus nonobstructing stone a region of cortical sc arring at the lower pole of the left kidney. There is moderate colonic diverticulosis with a sigmoid predominance. There is no adjacent inflammatory change to suggest diverticulitis. There is subtle rel ative increased density surrounding a small ovoid macroscopic fat attenuation epiploic appendage brian g the anterior margin of the distalmost descending colon which is new since the prior study consisten t with epiploic appendagitis. Normal appendix. Segment of small bowel extends slightly into a small w idemouthed umbilical hernia. No bowel obstruction.. Bladder, uterus and bilateral adnexa are unremark able. No free intraperitoneal gas or fluid. No pathologically enlarged abdominal or pelvic lymphadeno hardik. Moderate lumbar and lower thoracic spondylosis with chronic mild likely physiologic anterior w edging at T11 and T12. IMPRESSION: 1. Epiploic appendagitis along the distalmost descending colon. Reviewed, dictated and finalized at location A.
[2024-04-03 05:24] VITALS: BP 142/95; PULSE 76; RESP 16; TEMP 36.9; O2SAT 100
[2024-04-03 05:48] VITALS: BP 154/84; PULSE 83; RESP 16; O2SAT 98
[2024-04-03 05:53] LABS: Basophils Percent Auto 0.5 % (0.2-1.2); Eosinophils Absolute Auto 0.4 K/mm3 (0-0.3); Eosinophils Percent Auto 6.7 % (0-4.4); Hematocrit 42.2 % (37.0-47.0); Immature Granulocyte Absolute 0.01 K/mm3 (0.00-0.031); Immature Granulocyte Percent A 0.2 % (0-0.5); Lymphocytes Absolute Auto 1.82 K/mm3 (0.9-3.2); Lymphocytes Percent Auto 31.4 % (18.3-44.2); Mean Corpuscular HGB Conc 33.2 g/dl (32-36); Mean Corpuscular Hemoglobin 30.2 pg (26-34); Mean Corpuscular Volume 90.9 fl (80-100); Monocytes Absolute Auto 0.5 K/mm3 (0.1-0.6); Monocytes Percent Auto 8.8 % (2.6-8.5); Neutrophils Percent Auto 52.4 % (45.5-73.1); Platelet Count Result 322 k/mm3 (150-375); Red Blood Count 4.64 M/mm3 (4.2-5.4); White Blood Count 5.8 K/mm3 (4.5-10.0)
[2024-04-03 06:01] LABS: Appearance Urine Clear (Clear); Bacteria Urine 4+ /hpf; Bilirubin Urine Negative (Negative); Blood Urine Negative (Negative); Color Urine Yellow (Yellow); Glucose Urine UA Negative (Negative); Ketones Urine Negative (Negative); Leukocyte Esterase Ur 1+ LEU/UL (Negative); Nitrate Urine Positive (Negative); Non Pathogenic Casts 0-2; Protein Urine Negative (Negative); RBC Urine 0-2 /hpf (0-2); Specific Grav Ur 1.008 (1.001-1.035); Squamous Epithelial Cell Urine None Seen /hpf (Few); Urobilinogen Urine 0.2 mg/dL (<2.0)
[2024-04-03 06:09] LABS: Alanine Aminotransferase 22 U/L (6-35); Albumin Level 4.8 g/dL (3.5-5.1); Alkaline Phosphatase 90 U/L (38-126); Anion Gap 14 mmol/L (4-12); Aspartate Amino Transferase 34 U/L (14-36); Bilirubin,Total 0.7 mg/dL (0.2-1.3); Blood Urea Nitrogen 11 mg/dL (7-17); Calcium 9.9 mg/dL (8.4-10.2); Carbon Dioxide 24 mmol/L (22-30); Chloride 100 mmol/L (98-107); Estimated CRCL calculation 81 ml/min; Estimated Glomerular Filt Rate > 60; Glucose 112 mg/dL (65-110); Lipase 136 U/L (23-300); Potassium 4.3 mmol/L (3.4-5.0); Sodium 138 mmol/L (137-145)
[2024-04-03 06:10] LABS: Add Urine Microscopic? YES
[2024-04-03 06:15] VITALS: BP 143/81; PULSE 72; RESP 16; O2SAT 98
[2024-04-03 07:04] VITALS: BP 143/89; PULSE 72; RESP 16; O2SAT 99
--- NOTE | 2024-04-03 07:29 | ED.ABDPAIN ---
HPI - Abdominal Pain General Chief Complaint: Abdominal Pain Stated Complaint: bowel issues maybe diverticulitis Time Seen by Provider: 04/03/24 07:01 History of Present Illness HPI narrative: Patient is a 58-year-old female who presents ER with lower abdominal pain. Ongoing for couple days. Radiates to the back. No urinary frequency urgency or dysuria. No diarrhea. Feels similar to diverticulitis she has had in the past. No alleviating factors. Related Data Home Medications Medication Instructions Recorded Confirmed pentosan polysulfate sodium 100 mg 100 mg PO QID 09/11/19 03/21/24 capsule (Elmiron) cholecalciferol (vitamin D3) 50 50 mcg PO DAILY 03/25/23 03/21/24 mcg (2,000 unit) capsule (Vitamin D3) multivit with minerals-iron 18 1 tablet PO DAILY 03/25/23 03/21/24 mg-folic ac 400 mcg-vit K 25 mcg tablet (Adults Multivitamin) omega 0-jde-wlt-fish oil 120 1 cap PO DAILY 03/25/23 03/21/24 mg-180 mg-500 mg capsule (Fish Oil) Saccharomyces boulardii 250 mg 250 mg PO BID 09/09/23 03/21/24 capsule (Daily Probiotic (S. boulardii)) bile olhbo-kxlb-eigm-phenolpth tablet PO 09/09/23 03/21/24 tablet dncatwzzr-dlbobfk-gdxhggmgy capsule cap PO 09/09/23 03/21/24 Allergies Allergy/AdvReac Type Severity Reaction Status Date / Time codeine Allergy Intermediate ITCHING/IRENE Verified 03/21/24 08:39 H Review of Systems Review of Systems: All systems reviewed & are unremarkable except as noted in HPI and below Constitutional: Constitutional: Reports no additional constitutional complaints Cardiovascular: Cardiovascular: Reports no additional cardiovascular complaints Respiratory: Respiratory: Reports no additional respiratory complaints Gastrointestinal: Gastrointestinal: Reports abdominal pain, Denies diarrhea, Denies nausea and Denies vomiting Genitourinary: Genitourinary: Reports no additional female genitourinary complaints [facility] Past Medical History Medical History (Updated 04/03/24 @ 07:31 by Gonsalo Luna MD) Arthritis of foot, degenerative Cavovarus deformity of foot, acquired Diverticulitis Endometriosis Interstitial cystitis (chronic) without hematuria Surgical History Surgical History Breast cancer Status post lumpectomy and axillary dissection with postoperative radiation therapy and chemotherapy. Delivery by section H/O knee surgery H/O laparoscopy History of cholecystectomy Laparoscopic cholecystectomy 2009 at [facility] S/P breast lumpectomy Family History Family History Father Hypertension Mother Diabetes mellitus Disorder of thyroid Sibling No problems noted. Social History Social History Smoking status: Never smoker Alcohol intake: never Substance use: never Substance use type: does not use Lack of Transportation: No Lack of Food: Never True Current Housing: I Have Housing Concerned About Future Housing: No Difficulty Paying Gas/Electric Bills: No Difficulty Paying for Meds: No Currently Unemployed: No Education: Don't Know Difficulty w/ Childcare or Family Care: No Living arrangements: with family Occupation/Education: unemployed Gender identity (if verbalized by the patient): Female Spiritual care concerns: No Exam Narrative: GENERAL: Well-appearing, well-nourished, and in no acute distress. HEAD: Normocephalic, atraumatic. ENT: Mucous membranes moist. CHEST: Clear to auscultation. No respiratory distress. HEART: Regular rate and rhythm. Normal peripheral pulses. ABDOMEN: Soft, nontender, nondistended. EXTREMITIES: Normal range of motion. No edema. SKIN: Warm, dry, no rash. NEURO: Alert and oriented x3. PSYCH: Normal mood and affect Course Course Emergency Course: Patient resting comfortably. Informed of
[2024-04-03 07:45] VITALS: BP 142/87; PULSE 70; RESP 16; O2SAT 100
== END 2024-04-03 07:45 | disposition home or self-care (01) ==
PROVIDERS: Emergency Medicine; Emergency Provider Emergency Medicine; PCP Physician Assistant
DX: K63.89 Other specified diseases of intestine (principal); N80.9 Endometriosis, unspecified; N30.10 Interstitial cystitis (chronic) without hematuria; M19.079 Primary osteoarthritis, unspecified ankle and foot; M21.6X9 Other acquired deformities of unspecified foot; Z85.3 Personal history of malignant neoplasm of breast; Z90.49 Acquired absence of other specified parts of digestive tract; Z79.899 Other long term (current) drug therapy
CPT/HCPCS: 36415; 74177; 80053; 81001; 81025; 83690; 85025; 87077; 87086; 87088; 87186; 99284; Q9967

== ENCOUNTER 2024-09-12 12:53 | Emergency (ER) | payer OTHER, SELFPAY ==
[2024-09-12] VITALS (23 sets, daily range): BP systolic 126–176; BP diastolic 62–102; PULSE 79–86; RESP 16–18; TEMP 36.6–37.2; O2SAT 95–100
--- NOTE | ~2024-09-12 | CT_ITS ---
EXAMINATION: CT abdomen pelvis w con DATE: 09/12/2024 23:02 INDICATION: Diffuse abdominal pain TECHNIQUE: Computed tomography (CT) of the abdomen and pelvis was performed with 100 mL Omnipaque-350 intravenous contrast. Automated exposure control and iterative reconstruction technique were employe d. The dose-length product was 484.04 mGy-cm. COMPARISON: 04/03/2024 FINDINGS: Mild dependent atelectasis in the bilateral lower lobes. Heart size normal. No pericardial or pleural effusion. Surgical clips at the bilateral breasts. Unchanged intra and extra hepatic biliary ductal dilation likely related to prior cholecystectomy wit h surgical clips the gallbladder fossa. There are couple hepatic cysts the larger measuring 2.4 cm. S ubcentimeter low-attenuation splenic cyst or hemangioma. Pancreas and bilateral adrenal glands are no rmal. A couple right renal cysts measuring up to 12 mm. Unchanged chronic mild to moderate atrophy an d scattered cortical scarring at the left kidney likely sequela of prior infection or infarction. 2-3 mm parenchymal calcification versus nonobstructing stone a region of cortical scarring at the lower pole of the left kidney. There is moderate colonic diverticulosis with a sigmoid predominance. There is inflammatory stranding surrounding a diverticulum at the proximal sigmoid colon consistent with diverticulitis. Normal appe ndix. Segment of small bowel extends slightly into a small widemouthed umbilical hernia. No bowel obs truction. Bladder, retroverted uterus and bilateral adnexa are unremarkable. No abscess or free intra peritoneal gas or fluid. No pathologically enlarged abdominal or pelvic lymphadenopathy. Moderate lum bar and lower thoracic 0spondylosis with chronic mild likely physiologic anterior wedging at T11 and T12. Mild left and moderate right hip osteoarthritis. IMPRESSION: 1. Radiographically uncomplicated sigmoid diverticulitis. Reviewed, dictated and finalized at location A. 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
--- NOTE | 2024-09-12 14:58 | ED.ABDPAIN ---
HPI - Abdominal Pain General Chief Complaint: Abdominal Pain <Bushra Lara PA-C - Last Filed: 09/12/24 15:01> Stated Complaint: multiple complaints <Bushra Lara PA-C - Last Filed: 09/12/24 15:01> Time Seen by Provider: 09/12/24 20:41 <Bushra Lara PA-C - Last Filed: 09/12/24 15:01> Focused HPI: 58 y/o F with a hx of frequent UTIs presents to the ED for generalized abdominal pain x3 days. Patient states she recently finished cefdinir for a urinary tract infection the day before the onset of symptoms. She is now reporting diffuse abdominal pain that is worse in the suprapubic region. She denies dysuria or hematuria, fever vomiting. She is reporting nausea. She contacted her urologist and had a outpatient urinalysis performed today obtained via a catheter which showed no evidence of infection but was being sent off for culture. She denies dysuria or hematuria. Endorses a history of C-sections. GENERAL: Well-appearing, well-nourished, and in no acute distress. HEAD: Normocephalic, atraumatic. CHEST: Clear to auscultation. ?No respiratory distress. HEART: Regular rate and rhythm.? NEURO: ?Alert and oriented x3. Patient screened in triage and initial orders placed.? ?Additional care and disposition to be based upon?diagnostic testing and treatment. <Bushra Lara PA-C - Last Filed: 09/12/24 15:01> Related Data Home Medications: Home Medications ?Medication ?Instructions ?Recorded ?Confirmed ?Last Taken ?Type cholecalciferol (vitamin D3) 50 50 mcg PO DAILY 03/25/23 07/20/24 03/25/23 History mcg (2,000 unit) capsule (Vitamin D3) multivit with minerals-iron 18 1 tablet PO DAILY 03/25/23 07/20/24 03/25/23 History mg-folic ac 400 mcg-vit K 25 mcg tablet (Adults Multivitamin) omega 9-oae-apg-fish oil 120 1 cap PO DAILY 03/25/23 07/20/24 03/25/23 History mg-180 mg-500 mg capsule (Fish Oil) Saccharomyces boulardii 250 mg 250 mg PO BID 09/09/23 07/20/24 Unknown History capsule (Daily Probiotic (S. boulardii)) bile bqsfk-xzpo-uwax-phenolpth tablet PO 09/09/23 07/20/24 Unknown History tablet arhlhubsp-fglknvr-acblhazia capsule cap PO 09/09/23 07/20/24 Unknown History <Bushra Lara PA-C - Last Filed: 09/12/24 15:01> Allergies/Adverse Reactions: Allergies Allergy/AdvReac Type Severity Reaction Status Date / Time codeine Allergy Intermediate ITCHING/IRENE Verified 07/20/24 08:24 H <Bushra Lara PA-C - Last Filed: 09/12/24 15:01> Review of Systems Review of Systems: All systems as dictated in HPI <Frank Thompson PA-C - Last Filed: 09/13/24 01:44> [facility] Past Medical History Medical History: Medical History Arthritis of foot, degenerative Cavovarus deformity of foot, acquired Diverticulitis Endometriosis Interstitial cystitis (chronic) without hematuria <Bushra Lara PA-C - Last Filed: 09/12/24 15:01> Surgical History Surgical History: Surgical History Breast cancer Status post lumpectomy and axillary dissection with postoperative radiation therapy and chemotherapy. Delivery by section H/O knee surgery H/O laparoscopy History of cholecystectomy Laparoscopic cholecystectomy 2009 at [facility] S/P breast lumpectomy <Bushra Lara PA-C - Last Filed: 09/12/24 15:01> Family History Family History: Family History Father Hypertension Mother Diabetes mellitus Disorder of thyroid Sibling No problems noted. <SYLVIA Zarco Last Filed: 09/12/24 15:01> Social History Social History: Social History Smoking status: Never smoker Alcohol intake: never Substance use: never Substance use type: does not use Lack of Transportation: No Lack of Food: Never True Current Housing: I Have Housing Concerned About Future Housing: No Difficulty Paying Gas/Electric Bills: No Difficulty Paying for Meds: No Currently Unemployed: No Education: Don't Know Difficulty w/ Childcare or Family Care: No Living arrangements: with family Occupation/Education: unemployed Gender identity (if verbalized by the patient): Female Spiritual care concerns: No <SYLVIA Zarco Last Filed: 09/12/24 15:01> Exam Narrative: GENERAL: Well-appearing, well-nourished, and in no acute distress. HEAD: Normocephalic, atraumatic. EYES: PERRLA and EOMI. ENT: Nares clear, no rhinorrhea or epistaxis. Mucous membranes moist. Oropharynx without tonsillar hypertrophy exudate or other lesions. NECK: Supple. No adenopathy or masses. CHEST: No respiratory distress. Clear to auscultation. No wheezes rales or rhonchi HEART: Regular rate and rhythm. No murmur heard. Normal peripheral pulses. ABDOMEN: Mild suprapubic tenderness. Soft, otherwise nontender, nondistended, normal active bowel sounds. MSK: Normal range of motion. No edema. SKIN: Warm, dry, no rash. NEURO: Alert and oriented x4. No focal deficits. PSYCH: Normal mood and affect. <Frank Thompson PA-C - Last Filed: 09/13/24 01:44> Course Vital Signs Vital signs: Vital Signs Temperature 97.8 F 09/12/24 13:00 Pulse Rate 86 09/12/24 13:00 Respiratory Rate 16 09/12/24 13:00 Blood Pressure 176/102 H 09/12/24 13:00 Pulse Oximetry 99 09/12/24 13:00 Temperature 99 F 09/12/24 22:28 Pulse Rate 79 09/12/24 22:28 Respiratory Rate 18 09/12/24 22:28 Blood Pressure 132/67 09/12/24 23:46 Pulse Oximetry 98 09/12/24 23:46 <SYLVIA Zarco Last Filed: 09/12/24 15:01> Vital Signs Temperature 97.8 F 09/12/24 13:00 Pulse Rate 86 09/12/24 13:00 Respiratory Rate 16 09/12/24 13:00 Blood Pressure 176/102 H 09/12/24 13:00 Pulse Oximetry 99 09/12/24 13:00 Temperature 99 F 09/12/24 22:28 Pulse Rate 79 09/12/24 22:28 Respiratory Rate 18 09/12/24 22:28 Blood Pressure 132/67 09/12/24 23:46 Pulse Oximetry 98 09/12/24 23:46 <Frank Thompson PA-C - Last Filed: 09/13/24 01:44> MDM - Abdominal Pain MDM Narrative Medical decision making narrative: This is a 58-year-old female who presents to the ED for chief complaint of abdominal pain. Vitals are normal. Exam remarkable for the above. Resting comfortably and does not appear toxic. Lab work shows normal white count CBC. CMP unremarkable as well. Urinalysis does not show UTI or other abnormal findings. Viral swabs negative. CT abdomen and pelvis with IV contrast coming back from stat read with mild wall thickening of the sigmoid colon with mild pericolonic fat stranding consistent with mild colitis. Presentation is consistent with colitis. Feel this less likely to be bacterial based on the normal white count and no fever today. Shared decision making to avoid antibiotics as she has already been on a recent course. She will follow-up with PCP closely on this issue. Toradol and Zofran prescriptions written. Patient will be discharged in stable condition. Supportive measures discussed and return precautions given. Patient is understanding and agreeable with plan for discharge with PCP follow-up. <Frank Thompson PA-C - Last Filed: 09/13/24 01:44> Differential Diagnosis Differential diagnosis: Likely abdominal pain, acute appendicitis, constipation, diverticulitis, gastroenteritis and small bowel obstruction <Frank Thompson PA-C - Last Filed: 09/13/24 01:44> Lab Data Result diagrams: 09/12/24 21:05 09/12/24 22:02 <Bushra Lara PA-C - Last Filed: 09/12/24 15:01> Labs: Lab Results 09/12/24 09/12/24 09/12/24 Range/Units 20:43 21:05 21:37 WBC 6.0 (4.5-10.0) K/mm3 RBC 4.69 (4.2-5.4) M/mm3 Hgb 14.1 (12.0-15.0) g/dL Hct 41.4 (37.0-47.0) % MCV 88.3 (80-100) fl MCH 30.1 (26-34) pg MCHC 34.1 (32-36) g/dl RDW 12.6 (11.5-14.5) % Plt Count 318 (150-375) k/mm3 MPV 8.7 (7.4-10.4) fl Immature Gran % (Auto) 0.3 (0-0.5) % Neut % (Auto) 56.5 (45.5-73.1) % Lymph % (Auto) 26.5 (18.3-44.2) % [place] % (Auto) 13.5 H (2.6-8.5) % Eos % (Auto) 2.7 (0-4.4) % Baso % (Auto) 0.5 (0.2-1.2) % Lymph # (Auto) 1.59 (0.9-3.2) K/mm3 [place] # (Auto) 0.8 H (0.1-0.6) K/mm3 Eos # (Auto) 0.2 (0-0.3) K/mm3 Baso # (Auto) 0.0 (0.0-0.1) K/mm3 Abs Immat Gran (auto) 0.02 (0.00-0.031) K/mm3 Absolute Neuts (auto) 3.4 (1.3-6.7) K/mm3 Absolute Nucleated RBC 0.000 (0.0-0.012) K/mm3 Nucleated RBC % 0.0 (0.0-0.2) % Sodium (137-145) mmol/L Potassium (3.4-5.0) mmol/L Chloride (98-107) mmol/L Carbon Dioxide (22-30) mmol/L Anion Gap (4-12) mmol/L BUN (7-17) mg/dL Creatinine (0.7-1.0) mg/dL Estim Creat Clear Calc ml/min Estimated GFR (59 - ) Glucose (65-110) mg/dL Calcium (8.4-10.2) mg/dL Total Bilirubin (0.2-1.3) mg/dL AST (14-36) U/L ALT (6-35) U/L Alkaline Phosphatase (38-126) U/L Total Protein (6.3-8.2) g/dL Albumin (3.5-5.1) g/dL Lipase (23-300) U/L Urine Color Yellow (Yellow) Urine Appearance Clear (Clear) Urine pH 5.5 (5.0-9.0) Ur Specific [place] 1.009 (1.001-1.035) Urine Protein Negative (Negative) mg/dL Urine Glucose (UA) Negative (Negative) mg/dL Urine Ketones 1+ H (Negative) mg/dL Ur Blood (Man) Negative (Negative) Urine Nitrate Negative (Negative) Urine Bilirubin Negative (Negative) Urine Urobilinogen 0.2 (<2.0) mg/dL Leukocyte Esterase Rfl Negative (Negative) RAYA/UL Influenza A (RT-PCR) Negative (Negative) Influenza B (RT-PCR) Negative (Negative) RSV (RT-PCR) Negative (Negative) SARS-CoV-2 RNA (RT-PCR) Negative (Negative) 09/12/24 Range/Units 22:02 WBC (4.5-10.0) K/mm3 RBC (4.2-5.4) M/mm3 Hgb (12.0-15.0) g/dL Hct (37.0-47.0) % MCV (80-100) fl MCH (26-34) pg MCHC (32-36) g/dl RDW (11.5-14.5) % Plt Count (150-375) k/mm3 MPV (7.4-10.4) fl Immature Gran % (Auto) (0-0.5) % Neut % (Auto) (45.5-73.1) % Lymph % (Auto) (18.3-44.2) % [place] % (Auto) (2.6-8.5) % Eos % (Auto) (0-4.4) % Baso % (Auto) (0.2-1.2) % Lymph # (Auto) (0.9-3.2) K/mm3 [place] # (Auto) (0.1-0.6) K/mm3 Eos # (Auto) (0-0.3) K/mm3 Baso # (Auto) (0.0-0.1) K/mm3 Abs Immat Gran (auto) (0.00-0.031) K/mm3 Absolute Neuts (auto) (1.3-6.7) K/mm3 Absolute Nucleated RBC (0.0-0.012) K/mm3 Nucleated RBC % (0.0-0.2) % Sodium 136 L (137-145) mmol/L Potassium 4.0 (3.4-5.0) mmol/L Chloride 106 (98-107) mmol/L Carbon Dioxide 24 (22-30) mmol/L Anion Gap 6 (4-12) mmol/L BUN 15 (7-17) mg/dL Creatinine 0.60 L (0.7-1.0) mg/dL Estim Creat Clear Calc 93 ml/min Estimated GFR > 60 (59 - ) Glucose 100 (65-110) mg/dL Calcium 9.7 (8.4-10.2) mg/dL Total Bilirubin 1.4 H (0.2-1.3) mg/dL AST 36 (14-36) U/L ALT 28 (6-35) U/L Alkaline Phosphatase 63 (38-126) U/L Total Protein 8.0 (6.3-8.2) g/dL Albumin 4.4 (3.5-5.1) g/dL Lipase 94 (23-300) U/L Urine Color (Yellow) Urine Appearance (Clear) Urine pH (5.0-9.0) Ur Specific [place] (1.001-1.035) Urine Protein (Negative) mg/dL Urine Glucose (UA) (Negative) mg/dL Urine Ketones (Negative) mg/dL Ur Blood (Man) (Negative) Urine Nitrate (Negative) Urine Bilirubin (Negative) Urine Urobilinogen (<2.0) mg/dL Leukocyte Esterase Rfl (Negative) RAYA/UL Influenza A (RT-PCR) (Negative) Influenza B (RT-PCR) (Negative) RSV (RT-PCR) (Negative) SARS-CoV-2 RNA (RT-PCR) (Negative) <Bushra Lara PA-C - Last Filed: 09/12/24 15:01> Lab Results 09/12/24 09/12/24 09/12/24 Range/Units 20:43 21:05 21:37 WBC 6.0 (4.5-10.0) K/mm3 RBC 4.69 (4.2-5.4) M/mm3 Hgb 14.1 (12.0-15.0) g/dL Hct 41.4 (37.0-47.0) % MCV 88.3 (80-100) fl MCH 30.1 (26-34) pg MCHC 34.1 (32-36) g/dl RDW 12.6 (11.5-14.5) % Plt Count 318 (150-375) k/mm3 MPV 8.7 (7.4-10.4) fl Immature Gran % (Auto) 0.3 (0-0.5) % Neut % (Auto) 56.5 (45.5-73.1) % Lymph % (Auto) 26.5 (18.3-44.2) % [place] % (Auto) 13.5 H (2.6-8.5) % Eos % (Auto) 2.7 (0-4.4) % Baso % (Auto) 0.5 (0.2-1.2) % Lymph # (Auto) 1.59 (0.9-3.2) K/mm3 [place] # (Auto) 0.8 H (0.1-0.6) K/mm3 Eos # (Auto) 0.2 (0-0.3) K/mm3 Baso # (Auto) 0.0 (0.0-0.1) K/mm3 Abs Immat Gran (auto) 0.02 (0.00-0.031) K/mm3 Absolute Neuts (auto) 3.4 (1.3-6.7) K/mm3 Absolute Nucleated RBC 0.000 (0.0-0.012) K/mm3 Nucleated RBC % 0.0 (0.0-0.2) % Sodium (137-145) mmol/L Potassium (3.4-5.0) mmol/L Chloride (98-107) mmol/L Carbon Dioxide (22-30) mmol/L Anion Gap (4-12) mmol/L BUN (7-17) mg/dL Creatinine (0.7-1.0) mg/dL Estim Creat Clear Calc ml/min Estimated GFR (59 - ) Glucose (65-110) mg/dL Calcium (8.4-10.2) mg/dL Total Bilirubin (0.2-1.3) mg/dL AST (14-36) U/L ALT (6-35) U/L Alkaline Phosphatase (38-126) U/L Total Protein (6.3-8.2) g/dL Albumin (3.5-5.1) g/dL Lipase (23-300) U/L Urine Color Yellow (Yellow) Urine Appearance Clear (Clear) Urine pH 5.5 (5.0-9.0) Ur Specific [place] 1.009 (1.001-1.035) Urine Protein Negative (Negative) mg/dL Urine Glucose (UA) Negative (Negative) mg/dL Urine Ketones 1+ H (Negative) mg/dL Ur Blood (Man) Negative (Negative) Urine Nitrate Negative (Negative) Urine Bilirubin Negative (Negative) Urine Urobilinogen 0.2 (<2.0) mg/dL Leukocyte Esterase Rfl Negative (Negative) RAYA/UL Influenza A (RT-PCR) Negative (Negative) Influenza B (RT-PCR) Negative (Negative) RSV (RT-PCR) Negative (Negative) SARS-CoV-2 RNA (RT-PCR) Negative (Negative) 09/12/24 Range/Units 22:02 WBC (4.5-10.0) K/mm3 RBC (4.2-5.4) M/mm3 Hgb (12.0-15.0) g/dL Hct (37.0-47.0) % MCV (80-100) fl MCH (26-34) pg MCHC (32-36) g/dl RDW (11.5-14.5) % Plt Count (150-375) k/mm3 MPV (7.4-10.4) fl Immature Gran % (Auto) (0-0.5) % Neut % (Auto) (45.5-73.1) % Lymph % (Auto) (18.3-44.2) % [place] % (Auto) (2.6-8.5) % Eos % (Auto) (0-4.4) % Baso % (Auto) (0.2-1.2) % Lymph # (Auto) (0.9-3.2) K/mm3 [place] # (Auto) (0.1-0.6) K/mm3 Eos # (Auto) (0-0.3) K/mm3 Baso # (Auto) (0.0-0.1) K/mm3 Abs Immat Gran (auto) (0.00-0.031) K/mm3 Absolute Neuts (auto) (1.3-6.7) K/mm3 Absolute Nucleated RBC (0.0-0.012) K/mm3 Nucleated RBC % (0.0-0.2) % Sodium 136 L (137-145) mmol/L Potassium 4.0 (3.4-5.0) mmol/L Chloride 106 (98-107) mmol/L Carbon Dioxide 24 (22-30) mmol/L Anion Gap 6 (4-12) mmol/L BUN 15 (7-17) mg/dL Creatinine 0.60 L (0.7-1.0) mg/dL Estim Creat Clear Calc 93 ml/min Estimated GFR > 60 (59 - ) Glucose 100 (65-110) mg/dL Calcium 9.7 (8.4-10.2) mg/dL Total Bilirubin 1.4 H (0.2-1.3) mg/dL AST 36 (14-36) U/L ALT 28 (6-35) U/L Alkaline Phosphatase 63 (38-126) U/L Total Protein 8.0 (6.3-8.2) g/dL Albumin 4.4 (3.5-5.1) g/dL Lipase 94 (23-300) U/L Urine Color (Yellow) Urine Appearance (Clear) Urine pH (5.0-9.0) Ur Specific [place] (1.001-1.035) Urine Protein (Negative) mg/dL Urine Glucose (UA) (Negative) mg/dL Urine Ketones (Negative) mg/dL Ur Blood (Man) (Negative) Urine Nitrate (Negative) Urine Bilirubin (Negative) Urine Urobilinogen (<2.0) mg/dL Leukocyte Esterase Rfl (Negative) RAYA/UL Influenza A (RT-PCR) (Negative) Influenza B (RT-PCR) (Negative) RSV (RT-PCR) (Negative) SARS-CoV-2 RNA (RT-PCR) (Negative) <Frank Thompson PA-C - Last Filed: 09/13/24 01:44> Discharge Plan Discharge Clinical Impression: Colitis <Bushra Lara PA-C - Last Filed: 09/12/24 15:01> Patient Disposition: Home, Self-Care <SYLVIA Zarco Last Filed: 09/12/24 15:01> Condition: Stable <SYLVIA Zarco Last Filed: 09/12/24 15:01> Instructions: Antibiotic Form <SYLVIA Zarco Last Filed: 09/12/24 15:01> Additional Instructions: Your exam today does show evidence of colitis. Is unclear if this is viral versus bacterial. Please continue taking your probiotics, stay well hydrated at home. Use Zofran for nausea. This Toradol for pain control with Tylenol is not working. Follow-up with PCP on this issue. If you have any new or worsening symptoms please return to the ER for further evaluation. <SYLVIA Zarco Last Filed: 09/12/24 15:01> Patient Language: Sami <Bushra Lara PA-C - Last Filed: 09/12/24 15:01> Prescriptions: New ketorolac 10 mg tablet 10 mg PO Q8H PRN (Reason: pain) Qty: 15 0RF Rx Instructions: maximum total duration of 5 days from all oral, intranasal, or parenteral formulations ondansetron 4 mg tablet,disintegrating 4 mg PO Q8H PRN (Reason: nausea and vomiting) Qty: 10 0RF No Action Saccharomyces boulardii [Daily Probiotic (S. boulardii)] 250 mg capsule 250 mg PO BID bile qbatz-doze-lenv-phenolpth Tablet PO fpgdifljs-zfzyftk-yrxfmnrqw Capsule PO cholecalciferol (vitamin D3) [Vitamin D3] 50 mcg (2,000 unit) Capsule 50 mcg PO DAILY Fish Oil 120-180-500 mg Capsule 1 cap PO DAILY Adults Multivitamin 18 mg iron-400 mcg-25 mcg Tablet 1 tablet PO DAILY <SYLVIA Zarco Last Filed: 09/12/24 15:01> Follow-up/Referrals: Rhoda,SYLVIA Ivey [Primary Care Provider] - <SYLVIA Zarco Last Filed: 09/12/24 15:01> Time of Disposition: 01:39 <Bushra Lara PA-C - Last Filed: 09/12/24 15:01> 01:39 <Frank Thompson PA-C - Last Filed: 09/13/24 01:44>
[2024-09-12 20:50] LABS: Add Urine Microscopic? NO; Appearance Urine Clear (Clear); Bilirubin Urine Negative (Negative); Blood Urine Negative (Negative); Color Urine Yellow (Yellow); Glucose Urine UA Negative (Negative); Ketones Urine 1+ mg/dL (Negative); Leukocyte Esterase Ur Negative LEU/UL (Negative); Nitrate Urine Negative (Negative); Protein Urine Negative (Negative); Specific Grav Ur 1.009 (1.001-1.035); Urobilinogen Urine 0.2 mg/dL (<2.0); pH Urine 5.5 (5.0-9.0)
[2024-09-12 21:12] LABS: Basophils Percent Auto 0.5 % (0.2-1.2); Eosinophils Absolute Auto 0.2 K/mm3 (0-0.3); Eosinophils Percent Auto 2.7 % (0-4.4); Hematocrit 41.4 % (37.0-47.0); Hemoglobin 14.1 g/dL (12.0-15.0); Immature Granulocyte Absolute 0.02 K/mm3 (0.00-0.031); Immature Granulocyte Percent A 0.3 % (0-0.5); Lymphocytes Absolute Auto 1.59 K/mm3 (0.9-3.2); Lymphocytes Percent Auto 26.5 % (18.3-44.2); Mean Corpuscular HGB Conc 34.1 g/dl (32-36); Mean Corpuscular Hemoglobin 30.1 pg (26-34); Mean Corpuscular Volume 88.3 fl (80-100); Mean Platelet Volume 8.7 fl (7.4-10.4); Monocytes Absolute Auto 0.8 K/mm3 (0.1-0.6); Monocytes Percent Auto 13.5 % (2.6-8.5); Neutrophils Absolute Auto 3.4 K/mm3 (1.3-6.7); Neutrophils Percent Auto 56.5 % (45.5-73.1); Platelet Count Result 318 k/mm3 (150-375); Red Blood Count 4.69 M/mm3 (4.2-5.4); Red Cell Distribution Width 12.6 % (11.5-14.5)
[2024-09-12] MEDS: KETOROLAC 15 MG/ML VIAL (*BKC) IV PUSH (21:50)
[2024-09-12 22:19] LABS: Influenza A QL RT-PCR Negative (Negative); Influenza B QL RT-PCR Negative (Negative); RSV RNA, RT-PCR Negative (Negative); SARS-CoV-2 RNA PCR Negative (Negative)
[2024-09-12 22:35] LABS: Alanine Aminotransferase 28 U/L (6-35); Albumin Level 4.4 g/dL (3.5-5.1); Alkaline Phosphatase 63 U/L (38-126); Anion Gap 6 mmol/L (4-12); Aspartate Amino Transferase 36 U/L (14-36); Bilirubin,Total 1.4 mg/dL (0.2-1.3); Blood Urea Nitrogen 15 mg/dL (7-17); Calcium 9.7 mg/dL (8.4-10.2); Carbon Dioxide 24 mmol/L (22-30); Chloride 106 mmol/L (98-107); Estimated CRCL calculation 93 ml/min; Estimated Glomerular Filt Rate > 60; Glucose 100 mg/dL (65-110); Lipase 94 U/L (23-300); Sodium 136 mmol/L (137-145)
[2024-09-13 01:13] VITALS: O2SAT 99
[2024-09-13 01:16] VITALS: BP 133/66; O2SAT 99
[2024-09-13 01:17] VITALS: O2SAT 100
[2024-09-13 01:30] VITALS: O2SAT 99
[2024-09-13 01:31] VITALS: BP 130/65; O2SAT 98
== END 2024-09-13 02:09 | disposition home or self-care (01) ==
PROVIDERS: Physician Assistant; Emergency Provider Physician Assistant; PCP Physician Assistant
DX: K52.9 Noninfective gastroenteritis and colitis, unspecified (principal); Z20.822 Contact with and (suspected) exposure to COVID-19
CPT/HCPCS: 36415; 74177; 80053; 81003; 83690; 85025; 87637; 96374; 99284; J1885; Q9967

== ENCOUNTER 2024-10-26 15:18 | Outpatient (CLI) | payer OTHER, SELFPAY ==
--- NOTE | ~2024-10-26 | XR_ITS ---
EXAMINATION: XR knee LT 3V, XR knee RT 3V DATE: 10/26/2024 15:51 INDICATION: Bilateral knee pain TECHNIQUE: 1. Standing AP, lateral and sunrise views of the right knee were obtained. 2. Standing AP, lateral and sunrise views of the right knee were obtained. COMPARISON: 05/11/2006 FINDINGS: Right knee: Alignment is normal. No fracture. Joint spaces appear normal in all 3 compartments of the right knee however there are moderate-sized marginal osteophytes and small central subchondral osteophytes at a ll 3 compartments of the knee consistent with mild tricompartmental osteoarthritis with regions of li yuri high-grade chondromalacia. No knee joint effusion. Left knee: Alignment is normal. No fracture. As at the contralateral right knee joint spaces appear normal in a ll 3 compartments however there are also moderate-sized marginal osteophytes and small central subcho ndral osteophytes at all 3 compartments of the knee consistent with mild tricompartmental osteoarthri tis with regions of likely high-grade chondromalacia. No knee joint effusion. IMPRESSION: 1. 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 Reviewed, dictated and finalized at location A. ETING ENGINEER IMPRESSION: 1. 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
--- OUTSIDE RECORDS SUMMARY | 2024-10-26 15:23 | XMS_ITS | Referral Summary ---
Author Organization [facility] Address [address] [place] [address] Care Team Providers Care Crew Lead Name Role Phone Loni Marks Primary Care Pr ovider Source Comments [facility],non-owned Affiliates and Associated Physician Practices is amultiple site organization consisting of ambulatory clinics and hospital sitesin [place], [place], [place] and [place]. This disclosure is being madepursuant to the Care Everywhere program and may not contain all information available regarding this patient. Last updated 18.[facility] Allergies Active Allergy Reactions Criticality Noted Date Comments Codeine Itching Medium 06/20/2019 Medications * Be aware that medications may not be up to date on this document. Alwaysverify current medications with the patient. Medication Sig Dispensed Refills Start Date End Date Status Multiple Vitamins-Minerals (MULTIVITAMIN ADULTS PO) multivitamin Active ELMIRON 100 MG capsule Take 100 mg by mouth 3 04/28/2019 Acti ve Social History Tobacco Use Types Packs/Day Years Used Date Smoking Tobacco: Never Smokeless Tobacco: Never Alcohol Use Standard Drinks/Week Comments Never 0 (1 standard drink = 0.6 oz pur e alcohol) AUDIT-C Answer Date Recorded Frequency of Alcohol Consumption Never 06/20/2019 Average Number of Drinks Not on file 019 Frequency of Binge Drinking Not on file 04/2019 Sex and Gender Information Value Date Recorded Sex Assigned at Not on file Gender Identity Not on file Sexual Orientation Not on file Last Filed Vital Signs Vital Sign Reading Time Taken Comments Blood Pressure - - Pulse - - Temperature - - Respiratory Rate - - Oxygen Saturation - - Inhaled Oxygen Concentration - - Weight 85.7 kg (189 lb) 06/20/2019 8:01 AM CDT Height 177.8 cm (5' 10 ) 06/20/2019 8:01 AM CDT Body Mass Index 27.12 06/20/2019 8:01 AM CDT Plan of Treatment Not on file Care Teams Crew Lead Relationship Specialty Start Date End Date Loni Marks PA [address] [place] [id number] PCP - General 11/29/18
--- OUTSIDE RECORDS SUMMARY | 2024-10-26 15:23 | XMS_ITS | Data Portability ---
Author Organization [facility] Address [address] [place] [address] Care Team Providers Care Vision Care Associate Name Role Phone NEAL HOLLOWAY Primary Care Provider [phone] Assessment No assessment recorded. Plan of Treatment Reminders Order Date Submit Date Provider Last Modified By Organization Details Last Modified Time Details Appointments None recorded. Lab TSH + free T4, serum 2023 024 ELMATON Misa, [address], [place], [address], 4 05:11:33 CBC w/ auto diff 2023 024 [facility], [address], [place], [address], 4 05:11:35 CMP, serum or plasma 2023 024 ELMATON Misa, [address], [place], [address], 4 05:11:34 vitamin B12 + folate, serum or blood 2023 024 ELMATON Misa, [address], [place], [address], 4 05:11:34 magnesium, serum or plasma 2023 024 [facility], [address], [place], [address], 4 05:11:34 lipid panel, serum 2023 024 ELMATON [facility], [address], [place], [address], 4 05:11:35 vitamin D, 25-hydroxy , total, serum 2023 024 ANA LILIA [facility], [address], [place], [address], 4 05:11:35 HbA1c (hemoglobi n A1c), blood 2023 024 [facility], [address], [place], [address], 4 05:11:34 Referral orthopedic surgeon referral 2024 025 BRYAN Garay, [address] [facility] [address], [place], [address], 5 13:08:11 orthopedic surgeon referral 2023 024 ANA LILIA Lomax MD, [address] [facility] [address], [address], [place], [address], 4 11:53:32 Procedures None recorded. Surgeries None recorded. Imaging None recorded. Medication Orders None recorded. Patient TargetsNo targets recorded. Patient Instructions Encounter Date Encounter Id Patient Instructions Last Modified By Organization Details Last Modified Time 09/25/2024 [id number] A healthy lifestyle: care instructions [email or web address] Not available 09/25/2024 12:55:35 Reason for Referral Orthopedic Surgeon Referral for Osteoarthritis of hip Referring Physician: Loni Duong, Internal Medicine, Encounter Date: 01/28/2024 Orthopedic Surgeon Referral for Pain of knee region Referring Physician: Loni Duong, Internal Medicine, Encounter Date: 09/25/2024 Results Created Date Observation Date Name Description Value Unit Range Abnormal Flag Note LastModifiedBy Organization Detail LastModifiedTime 02/04/2002/0402/05/2024 LIPID PANEL W/ CHOL/ HDL RATIO cholesterol, total 176 mg/dL 100-19 9 Not Available [facility] ([facility]) [address] [place], [address], 02/05/2024 11:13:27 02/04/20 24 02/05/2024 LIPID PANEL W/ CHOL/ HDL RATIO triglyceride s 99 mg/dL 0-149 Not Available [facility] ([facility]) [address] [place], [address], 02/05/2024 11:13:27 02/04/20 24 02/05/2024 LIPID PANEL W/ CHOL/ HDL RATIO HDL cholesterol 44 mg/dL >39 Not Available [facility] ([facility]) [address] [place], [address], 02/05/2024 11:13:27 02/04/20 24 02/05/2024 LIPID PANEL W/ CHOL/ HDL RATIO VLDL cholesterol alvaro 18 mg/dL 5-40 Not Available [facility] ([facility]) [address] [place], [address], 02/05/2024 11:13:27 02/04/20 24 02/05/2024 LIPID PANEL W/ CHOL/ HDL RATIO LDL chol calc ([facility]) 114 mg/dL 0-99 above high normal Not Available [facility] ([facility]) [address] [place], [address], 02/05/2024 11:13:27 02/04/20 24 02/05/2024 LIPID PANEL W/ CHOL/ HDL RATIO T. chol/HDL ratio 4.0 ratio 0.0-4. 4 T. Chol/ HDL Ratio Men Women 1/2 Avg.R isk 3.4 3.3 Avg.R isk 5.0 4.4 2X Avg.R isk 9.6 7.1 3X Avg.R isk 23.4 11.0 Not Available [facility] ([facility]) [address] [place], [address], 02/05/2024 11:13:27 02/04/20 24 02/05/2024 TSH+F REE T4 TSH 1.230 uIU/m L 0.450- 4.500 Not Available [facility] ([facility]) [address] [facility], [place], [address], 02/05/2024 11:13:28 02/04/20 24 02/05/2024 TSH+F REE T4 T4,free(dire ct) 1.37 NG/dL 0.82-1 .77 Not Available [facility] ([facility]) [address] [facility] [place], [address], 02/05/2024 11:13:28 02/04/20 24 02/05/2024 COMP. METAB OLIC PANEL (14) glucose 96 mg/dL 70-99 Not Available [facility] ([facility]) [address] [facility] [place], [address], 02/05/2024 11:13:28 02/04/20 24 02/05/2024 COMP. METAB OLIC PANEL (14) BUN 13 mg/dL 6-24 Not Available [facility] ([facility]) [address] [facility] [place], [address], 02/05/2024 11:13:28 02/04/20 24 02/05/2024 COMP. METAB OLIC PANEL (14) creatinine 0.73 mg/dL 0.57-1 .00 Not Available [facility] ([facility]) [address] [facility] [place], [address], 02/05/2024 11:13:28 02/04/20 24 02/05/2024 COMP. METAB OLIC PANEL (14) eGFR 95 mL/mi n/1.7 3 >59 Not Available [facility] ([facility]) [address] [facility] [place], [address], 02/05/2024 11:13:28 02/04/20 24 02/05/2024 COMP. METAB OLIC PANEL (14) BUN/creatini ne ratio 18 9-23 Not Available [facility] ([facility]) [address] [place], [address], 02/05/2024 11:13:28 02/04/20 24 02/05/2024 COMP. METAB OLIC PANEL (14) sodium 137 mmol/ L 134-14 4 Not Available [facility] ([facility]) [address] [place], [address], 02/05/2024 11:13:28 02/04/20 24 02/05/2024 COMP. METAB OLIC PANEL (14) potassium 4.2 mmol/ L 3.5-5. 2 Not Available [facility] ([facility]) [address] [facility], [place], [address], 02/05/2024 11:13:28 02/04/20 24 02/05/2024 COMP. METAB OLIC PANEL (14) chloride 99 mmol/ L 96-106 Not Available [facility] ([facility]) [address] [place], [address], 02/05/2024 11:13:28 02/04/20 24 02/05/2024 COMP. METAB OLIC PANEL (14) carbon dioxide, total 24 mmol/ L 20-29 Not Available [facility] ([facility]) [address] [place], [address], 02/05/2024 11:13:28 02/04/20 24 02/05/2024 COMP. METAB OLIC PANEL (14) calcium 9.9 mg/dL 8.7-10 .2 Not Available [facility] ([facility]) [address] [place], [address], 02/05/2024 11:13:28 02/04/20 24 02/05/2024 COMP. METAB OLIC PANEL (14) protein, total 7.0 g/dL 6.0-8. 5 Not Available [facility] ([facility]) [address] [facility], [place], [address], 02/05/2024 11:13:28 02/04/20 24 02/05/2024 COMP. METAB OLIC PANEL (14) albumin 4.4 g/dL 3.8-4. 9 Not Available [facility] ([facility]) [address] [facility], [place], [address], 02/05/2024 11:13:28 02/04/20 24 02/05/2024 COMP. METAB OLIC PANEL (14) globulin, total 2.6 g/dL 1.5-4. 5 Not Available [facility] ([facility]) [address] [facility], [place], [address], 02/05/2024 11:13:28 02/04/20 24 02/05/2024 COMP. METAB OLIC PANEL (14) A/G ratio 1.7 1.2-2. 2 Not Available [facility] ([facility]) [address] [facility], [place], [address], 02/05/2024 11:13:28 02/04/20 24 02/05/2024 COMP. METAB OLIC PANEL (14) bilirubin, total 0.6 mg/dL 0.0-1. 2 Not Available [facility] ([facility]) [address] [facility], [place], [address], 02/05/2024 11:13:28 02/04/20 24 02/05/2024 COMP. METAB OLIC PANEL (14) alkaline phosphatase 80 IU/L 44-121 Not Available [facility] ([facility]) [address] [place], [address], 02/05/2024 11:13:28 02/04/20 24 02/05/2024 COMP. METAB OLIC PANEL (14) AST (SGOT) 18 IU/L 0-40 Not Available [facility] ([facility]) [address] [facility], [place], [address], 02/05/2024 11:13:28 02/04/2002/05/2024 COMP. METAB OLIC PANEL (14) ALT (SGPT) 17 IU/L 0-32 Not Available [facility] ([facility]) [address] [facility], [place], [address], 02/05/2024 11:13:28 02/04/20 24 02/05/2024 VITAM IN B12 AND FOLAT E vitamin B12 870 pg/mL 232-12 45 Not Available [facility] ([facility]) [address] [facility] [place], [address], 02/05/2024 11:13:28 02/04/2002/05/2024 VITAM IN B12 AND FOLAT E folate (folic acid), serum >20.0 NG/mL >3.0 A serum folat e yen ntrat ion of less than 3.1 ng/mL is consi dered to repre sent clini alvaro defic iency . Not Available [facility] ([facility]) [address] [facility], [place], [address], 02/05/2024 11:13:28 02/04/2002/05/2024 HEMOG LOBIN A1C hemoglobin A1C 5.6 % 4.8-5. 6 Predi abete s: 5.7 - 6.4 Diabe aleja: >6.4 Glyce jordan contr ol for adult s with diabe aleja: <7.0 Not Available [facility] ([facility]) [address] [facility], [place], [address], 02/05/2024 11:13:29 02/04/2002/05/2024 MAGNE SIUM magnesium 1.9 mg/dL 1.6-2. 3 Not Available [facility] ([facility]) [address] [facility], [place], [address], 02/05/2024 11:13:29 02/04/20 24 02/05/2024 CBC WITH DIFFE RENTI AL/PL ATELE T WBC 4.2 x10e3 /uL 3.4-10 .8 Not Available [facility] ([facility]) [address] [facility], [place], [address], 02/05/2024 11:13:29 02/04/20 24 02/05/2024 CBC WITH DIFFE RENTI AL/PL ATELE T RBC 4.41 x10e6 /uL 3.77-5 .28 Not Available [facility] ([facility]) [address] [facility], [place], [address], 02/05/2024 11:13:29 02/04/20 24 02/05/2024 CBC WITH DIFFE RENTI AL/PL ATELE T hemoglobin 12.9 g/dL 11.1-1 5.9 Not Available [facility] ([facility]) [address] [facility], [place], [address], 02/05/2024 11:13:29 02/04/20 24 02/05/2024 CBC WITH DIFFE RENTI AL/PL ATELE T hematocrit 40.2 % 34.0-4 6.6 Not Available [facility] ([facility]) [address] [facility], [place], [address], 02/05/2024 11:13:29 02/04/20 24 02/05/2024 CBC WITH DIFFE RENTI AL/PL ATELE T MCV 91 fL 79-97 Not Available [facility] ([facility]) [address] [facility], [place], [address], 02/05/2024 11:13:29 02/04/20 24 02/05/2024 CBC WITH DIFFE RENTI AL/PL ATELE T MCH 29.3 pg 26.6-3 3.0 Not Available [facility] ([facility]) [address] [facility], [place], [address], 02/05/2024 11:13:29 02/04/20 24 02/05/2024 CBC WITH DIFFE RENTI AL/PL ATELE T MCHC 32.1 g/dL 31.5-3 5.7 Not Available [facility] ([facility]) [address] [facility], [place], [address], 02/05/2024 11:13:29 02/04/20 24 02/05/2024 CBC WITH DIFFE RENTI AL/PL ATELE T RDW 12.1 % 11.7-1 5.4 Not Available [facility] ([facility]) [address] [facility], [place], [address], 02/05/2024 11:13:29 02/04/20 24 02/05/2024 CBC WITH DIFFE RENTI AL/PL ATELE T platelets 326 x10e3 /uL 150-45 0 Not Available [facility] ([facility]) [address] [facility], [place], [address], 02/05/2024 11:13:29 02/04/20 24 02/05/2024 CBC WITH DIFFE RENTI AL/PL ATELE T neutrophils 57 % notest ab. Not Available [facility] ([facility]) [address] [facility], [place], [address], 02/05/2024 11:13:29 02/04/20 24 02/05/2024 CBC WITH DIFFE RENTI AL/PL ATELE T lymphs 29 % notest ab. Not Available [facility] ([facility]) [address] [facility], [place], [address], 02/05/2024 11:13:29 02/04/20 24 02/05/2024 CBC WITH DIFFE RENTI AL/PL ATELE T monocytes 10 % notest ab. Not Available [facility] ([facility]) [address] [facility], [place], [address], 02/05/2024 11:13:29 02/04/20 24 02/05/2024 CBC WITH DIFFE RENTI AL/PL ATELE T eos 3 % notest ab. Not Available [facility] ([facility]) [address] [facility], [place], [address], 02/05/2024 11:13:29 02/04/20 24 02/05/2024 CBC WITH DIFFE RENTI AL/PL ATELE T basos 1 % notest ab. Not Available [facility] ([facility]) [address] [facility], [place], [address], 02/05/2024 11:13:29 02/04/20 24 02/05/2024 CBC WITH DIFFE RENTI AL/PL ATELE T neutrophils (absolute) 2.4 x10e3 /uL 1.4-7. 0 Not Available [facility] ([facility]) [address] [facility], [place], [address], 02/05/2024 11:13:29 02/04/20 24 02/05/2024 CBC WITH DIFFE RENTI AL/PL ATELE T lymphs (absolute) 1.2 x10e3 /uL 0.7-3. 1 Not Available [facility] ([facility]) [address] [facility], [place], [address], 02/05/2024 11:13:29 02/04/20 24 02/05/2024 CBC WITH DIFFE RENTI AL/PL ATELE T monocytes(ab solute) 0.4 x10e3 /uL 0.1-0. 9 Not Available [facility] ([facility]) [address] [place], [address], 02/05/2024 11:13:29 02/04/20 24 02/05/2024 CBC WITH DIFFE RENTI AL/PL ATELE T eos (absolute) 0.1 x10e3 /uL 0.0-0. 4 Not Available [facility] ([facility]) [address] [place], [address], 02/05/2024 11:13:29 02/04/20 24 02/05/2024 CBC WITH DIFFE RENTI AL/PL ATELE T baso (absolute) 0.0 x10e3 /uL 0.0-0. 2 Not Available [facility] ([facility]) [address] [facility], [place], [address], 02/05/2024 11:13:29 02/04/20 24 02/05/2024 CBC WITH DIFFE RENTI AL/PL ATELE T immature granulocytes 0 % notest ab. Not Available [facility] ([facility]) [address] [facility], [place], [address], 02/05/2024 11:13:29 02/04/20 24 02/05/2024 CBC WITH DIFFE RENTI AL/PL ATELE T immature grans (abs) 0.0 x10e3 /uL 0.0-0. 1 Not Available [facility] ([facility]) [address] [facility], [place], [address], 02/05/2024 11:13:29 02/04/20 24 02/05/2024 VITAM IN D, 25-HY DROXY vitamin D, 25-hydroxy 62.7 NG/mL 30.0-1 00.0 Vitam in D defic iency has been defin ed by the Insti tute of Medic ine and an Endoc rine Socie ty pract ice guide line as a level of serum 25-OH vitam in D less than 20 ng/mL (1,2) . The Endoc rine Socie ty went on to [facility] er defin e vitam in D insuf ficie ncy as a level betwe en 21 and 29 ng/mL (2). 1. IOM (Inst itute of Medic ine). 2010. Dieta ry refer ence brandee es for calci um and D. Rosa triplett [place]: [facility] . 2. Abe whelan MF, [place], Phuong off-F errar i KENT, et al. Evalu ation , treat ment, and preve ntion of vitam in D defic iency : an Endoc rine Socie ty clini alvaro pract ice guide line. JCEM. 2010; 96(7) :1911 -30. Not Available [facility] ([facility]) [address], [place], [address], 02/05/2024 11:13:30 07/20/20 24 07/20/2024 pap, IG + HR HPV Pap negati ve Not Available Not Available 17:25:24 04/03/20 24 04/03/2024 CT, abdom en + pelvi s, w/ contr ast No observ ation record ed. [email or web address] [address], [place], [address], 04/05/2024 23:03:03 09/14/19 25 09/12/2024 CT, abdom en + pelvi s, w/ contr ast No observ ation record ed. [email or web address] [address], [place], [address], 09/14/2024 17:38:23 Result Notes None recorded. Problems Name Problem SNOMED Code Status Onset Date Resolution Date Notes Provider Name and Address Organization Details Recorded Time Vitamin D deficiency 25263601 Active 2023 Portia Dodge null, [place] - [facility] 09:56:56 Diverticular disease 035385370 Active 2023 Portia Dodge [place], [place] [facility] 4 09:57:10 Spondylolisthe sis 350218076 Active 2023 Portia Dodge [place], [place] [facility] 09:57:25 Body mass index 25-29 - overweight 415965916 Active 2024 Jose Nava [place] null, [place] - [facility] 5 12:28:58 Overweight 459763403 Active 2024 TYRA Sol Attn: Kirk sterling,[address], [place], [address], [place] - [facility] 5 21:22:48 Problem Notes None recorded. Procedures Surgical History Date Name Laterality Status Provider Name and Address Organization Details Recorded Time 04/05/20 23 [facility]/20/2023 10:03:42 09/13/19 10 [facility] 10:00:26 09/13/19 08 [facility]/20/2023 10:00:36 09/13/19 00 [facility]23 10:00:55 Imaging Results Imaging Date Name Status LastModified by Organiz ation Details LastModified Time 04/03/2024 CT, abdomen + pelvis, w/ contrast completed [address], [address], 04/05/2024 23:03:03 09/12/2024 CT, abdomen + pelvis, w/ contrast completed [address], [address], 09/14/2024 17:38:23 Procedure Notes None recorded. Medical Equipment None Reported. Allergies Allergen ID Allergen Name Allergen Category Reaction Reaction Severity Criticality Documentation Date Start Date Code Code System Note Provider Name and Address Organization Details Recorded Time 447508 codeine medicatio n rash Not available Not available 12/20/2023 2670 RxNorm Not Available Not Available Not Available Medications Name Sig Start Date Stop Date Status Note LastModified by Organization Details LastModified Time ondansetron HCl 4 mg tablet TAKE 1 TABLET BY MOUTH THREE TIMES A DAY 01/27 completed Not Available Not Available Not Available dexamethaso ne 6 mg tablet Take 1 tablet every day by oral route for 7 days. 01/27 completed Not Available Not Available Not Available Elmiron 100 mg capsule 1 CAPSULE BY MOUTH FOUR TIMES DAILY 01/27 completed Not Available Not Available Not Available metronidazo le 500 mg tablet Take 1 tablet every 8 hours by oral route. 2024 active Not Available Not Available Not Avai lable ciprofloxac in 500 mg tablet Take 1 tablet every 12 hours by oral route. 2024 active Not Available Not Available Not Avai lable sulfamethox azole 800 mg-trimetho prim 160 mg tablet TAKE 1 TABLET BY MOUTH TWICE A DAY 09/25 completed Not Available Not Available Not Available cephalexin 500 mg capsule TAKE 1 CAPSULE BY MOUTH EVERY 12 HOURS 09/25 completed Not Available Not Available Not Available hydroxychlo roquine 200 mg tablet Take 1 tablet twice a day by oral route for 10 days. 01/27 completed Not Available Not Available Not Available ondansetron 4 mg disintegrat ing tablet DISSOLVE 1 TABLET IN MOUTH EVERY 8 HOURS NEEDED FOR NAUSEA AND VOMITING 09/25 completed Not Available Not Available Not Available cefdinir 300 mg capsule TAKE 1 CAPSULE BY MOUTH TWICE A DAY 09/25 completed Not Available Not Available Not Available doxycycline hyclate 100 mg tablet Take 1 tablet twice a day by oral route for 10 days. 01/27 completed Not Available Not Available Not Available dicyclomine 10 mg capsule TAKE 1 CAPSULE BY MOUTH THREE TIMES A DAY 01/27 completed Not Available Not Available Not Available amoxicillin 875 mg-potassiu m clavulanate 125 mg tablet TAKE 1 TABLET BY MOUTH EVERY 12 HOURS 01/27 completed Not Available Not Available Not Available Vitals Date Recorded Respiratory rate Body height Body mass index (BMI) Body weight Oxygen saturation Oxygen saturation in Arterial blood by Pulse oximetry Heart rate Systolic blood pressure Diastolic blood pressure Systolic blood pressure Diastolic blood pressure Provider Name and Address Organization Details Last Updated DateTime 4 20 /min 177.8 cm 26.5 kg/m2 66644.2 3 g 97 % 97 % 78 /min 142 mm[Hg] 88 mm[Hg] 132 mm[Hg] 78 mm[Hg] Jose Nava MA [place] - [facility] 4 09:50:46 Date Recorded Body height Body mass index (BMI) Body weight Respiratory rate Oxygen saturation Oxygen saturation in Arterial blood by Pulse oximetry Heart rate Systolic blood pressure Diastolic blood pressure Provider Name and Address Organization Details Last Updated DateTime 5 177.8 cm 26.8 kg/m2 86055.7 7 g 20 /min 98 % 98 % 87 /min 130 mm[Hg] 82 mm[Hg] Jose Nava MA [place] - [facility] 12:42:56 Date Recorded Systolic blood pressure Diastolic blood pressure Provider Name and Address Organization Details Last Updated DateTime 09/25/2024 128 mm[Hg] 82 mm[Hg] TYRA Sol Attn: Accounting,[address], [place], [address], [place] - [facility] 09/25/2024 12:52:24 Social History Question Answer Notes LastModified by Organizat ion Details LastModified Time Tobacco Smoking Status Never Smoker Portia blum, [facility] 12/20/2023 09:59:00 What Is Your Level Of Alcohol Consumption? None [email or web address] Information not available 12/20/2023 Are You Blind Or Do You Have Difficulty Seeing? No Glasses Information n ot available 01/28/2024 What Is Your Level Of Caffeine Consumption? None [email or web address] Information not available 12/20/2023 In The 14 Days Before Symptom Onset, Have You Had Close Contact With A Laboratory-confirm ed COVID-19 While That Case Was Ill? No [email or web address] Information n ot available 12/20/2023 In The 14 Days Before Symptom Onset, Have You Had Close Contact With A Person Who Is Under Investigation For COVID-19 While That Person Was Ill? No [email or web address] Information not available 12/20/2023 Have You Been To An Area Known To Be High Risk For COVID-19? No [email or web address] Information not available 12/20/2023 Are You Currently Employed? No [email or web address] Information not available 12/20/2023 Are You Deaf Or Do You Have Serious Difficulty Hearing? No Information not available 01/28/2024 What Type Of Diet Are You Following? REGULAR [email or web address] Information n ot available 12/20/2023 Are There Any Guns Present In Your Home? No Information not available 09/25/2024 What Was The Date Of Your Most Recent Tobacco Screening? 09/25/2024 Information not available 09/25/2024 What Is Your Relationship Status? [email or web address] Information not available 12/20/2023 Do You Use Your Seat Belt Or Car Seat Routinely? Yes [email or web address] Information not available 12/20/2023 Do You Have Smoke And Carbon Monoxide Detectors In Your Home? Yes [email or web address] Information not available 12/20/2023 Do You Use Any Illicit Or Recreational Drugs? No [email or web address] Information not available 12/20/2023 Do You Use Sunscreen Routinely? Yes [email or web address] Information not available 12/20/2023 Has Tobacco Cessation Counseling Been Provided? Yes Information not available 01/28/2024 On What Date Was Tobacco Cessation Counseling Provided? 09/25/2024 Information not available 09/25/2024 Do You Or Have You Ever Used Any Other Forms Of Tobacco Or Nicotine? No [email or web address] Information not available 12/20/2023 Sex: Female Functional Status Question Answer Note LastModified by Organization D etails LastModified Time Are you able to care for yourself? Yes [email or web address] Information n ot available 12/20/2023 What is your exercise level? None [email or web address] Information not available 12/20/2023 Mental Status None recorded. Family History Relationship Description Onset Age of this Age Resolved Age Notes LastModified by Organization Details LastModified Time Father Diabetes mellitus [email or web address] Not available 12/19 09:57:45 Father Hypertensive disorder [email or web address] Not available 2023 11:48:07 Brother Malignant neoplasm of brain 58 [email or web address] Not available 12/19 09:58:02 Brother Hypertensive disorder [email or web address] Not available 2023 11:48:13 Mother Malignant tumor of breast [email or web address] Not available 2023 11:48:00 Mother Kidney disease [email or web address] Not available 2023 11:48:33 Notes:DAD PASSED IN DECEMBER 31 Medical History Condition Response Coronary Artery Disease N Other N High Blood Pressure N Atrial Fibrillation N Kidney or Bladder Problems Y Thyroid Problems N GI Problems Y Depression N COPD N Blood Clots N Skin Problems N Anemia N Heart Attack ([place]) N Anxiety Disorder N Diabetes N Muscle, Joint, or Bone Problems N Seizures/Epilepsy N Acid Reflux (GERD) N Cancer N Stroke N Asthma N Allergies N High Cholesterol N Hepatitis N Liver Disease N Headaches N Heart Failure N Osteoporosis N Gynecological History Statement/Question Response Menses Monthly N Current Control Method None Obstetrics History GPAL:G 1 P 1 0 0 1 Type Value Full Term 1 Induced 0 Premature 0 Living 1 Total 1 Past Encounters Encounter ID Performer Location Encounter Start Date Encounter Closed Date Diagnosis/Indication Diagnosis SNOMED-CT Code Diagnosis ICD10 Code Diagnosis Note [id number] TYRA Sol [facility] [address] [place] [address] 01/28/2024 09:24:58 01/28/2024 11:10:07 Pain in right hip joint [id number] 56185 M25.551 as above. Osteoarthritis of hip 23 [id number] M16.9 refer to Orthopedic s for evaluation and options for her known OA of right hip Cholesterol screening 27 4955680 Z13.220 fasting lipids due Diabetes m ellitus screening 656214480 Z13.1 a1c screening due Thyroid di sorder screening [id number] Z13.29 TFT panel due Long-term drug therapy 246820943 Z79.899 routine cmp, cbc, b12, folate and magnesium labs ordered. Vitamin D deficiency 347 17906 E55.9 pt requests Vit D lab order [id number] TYRA Sol [facility] [address] [place] [address] 09/25/2024 12:16:48 09/25/2024 13:06:10 Body mass index 25-29 - overweight 681743113 Z68.26 BMI is 26.8 Overweight 481248462 E66 .3 Diverticul itis of sigmoid colon 490476397 K57.32 Patient has improved well on Cipro and Flagyl combinatio n, advance diet slowly Pain of knee region 1003 964486 M25.569 pain in left medial knee after twisting wrong recently. Refer to orthopedic s Health Concerns Section Related Observation LastModified by Organization Detai ls LastModified Time None Recorded Concern Status LastModified by Organization Details LastModified Time None Recorded Advance Directives Directive None Recorded Payers Encounter Date Sequence Insurance Name Policy Number Policy Mohamud Covered Member ID Mohamud Member ID Guarantor Name 01/28/2024 1 [facility] [id number] Catrachito Olguin [id number] Alana Olguin 09/25/2024 1 [facility] [id number] Catrachito Olguin [id number] Alana Olguin Notes Date Note Type Note Provider Name and Address Organization Details Recorded Time 01/28/2024 text/html Musculoskeletal PainReported bypatient.Location:rig ht hip Quality:sharp Severity:pain level without meds /10;worsening Duration:present for 6-12 months Timing:constant Context:prior back problems Alleviating factors:rest Aggravating factors:movement/posit ioning; bending over; twisting Associated Symptoms:no fever; no weak limbs; no tingling; no numbness of the legs/feet; no incontinence Pt. states that she isn't sure what is going on states that she has been having right/leg pain states that her chiropractor has been treating her states that it feels it in her hip as well as groin states that she still has the clicking and popping noises and it has gotten better. States that she feels as if a flexibility issues in that leg. TRYA Sol Attn: Accounting[address] [place], [address], [facility] 02/13/2024 20:45:09 09/25/2024 text/html Patient is here for follow-up from the emergency room on September 12. She was found to have on CT scan inflammatory stranding surrounding the diverticulum at the proximal sigmoid colon consistent with diverticulitis. Normal appendix. No abscess or free air no pathologically enlarged lymph nodes. Radiographically uncomplicated sigmoid diverticulitis. Is no medication given in the emergency room for this but she contacted the office to let us know about her ER visit and this was reviewed and then oral antibiotics were sent out for this uncomplicated diverticulitis. She is feeling better already and is here for follow-up. She also has pain in her knees and would like to have a referral placed TYRA Sol Attn: Accounting[address] [place], [address], [facility] 10/12/2024 21:23:03 OBGyn Episode No OBEpisode recorded.
--- OUTSIDE RECORDS SUMMARY | 2024-10-26 15:23 | XMS_ITS | Encounter Summary ---
Author Organization [facility] Address [address] [place] [place] [address] Care Team Providers Care Plate Finisher Name Role Phone Loni Marks Primary Care Pr ovider Reason for Visit * Reason Onset Date Comments Future Appointment 12/12/2018 Encounter Details Date Type Department Care Team (Late st Contact Info) Description 12/12/2018 Telephone [facility] [address] [place] [address] Kyle Chanel Jr., MD [address] [facility] [address] [place] [address] Future Appointment Social History Tobacco Use Types Packs/Day Years Used Date Smoking Tobacco: Never Assessed Sex and Gender Information Value Date Recorded Sex Assigned at Not on file Gender Identity Not on file Sexual Orientation Not on file documented as of this encounter Miscellaneous Notes * Telephone Encounter - Yue Vallejo - 12/12/2018 2:21 PM CDT PT would like for someone to give her a call about appointment tomorrow regarding if she needs results for her ct scan CB: [phone] documented in this encounter Plan of Treatment Not on file documented as of this encounter Visit Diagnoses Not on filedocumented in this encounter Care Teams Plate Finisher Relationship Specialty Start Date End Date Loni Marks PA [address] [place] [phone] PCP - General 11/29/18 documented as of this encounter
--- OUTSIDE RECORDS SUMMARY | 2024-10-26 15:23 | XMS_ITS | Clinical Summary ---
Author Organization [facility] [employer] Address [address] [place] [address] Care Team Providers Care Renal Case Manager Name Role Phone Loni Marks Primary Care Pr ovider Source Comments [facility] [employer],non-owned Affiliates and Associated Physician Practices is amultiple site organization consisting of ambulatory clinics and hospital sitesin [place], [place], [place] and [place]. This disclosure is being madepursuant to the Care Everywhere program and may not contain all information available regarding this patient. Last updated 18.[facility] [employer] Allergies Active Allergy Reactions Criticality Noted Date [...] 06/20/2019 8:01 AM CDT Plan of Treatment Health Maintenance Due Date Last Done Comments COLOGUARD (AGES 45-75) - COL ON CA SCREENING [address] COLONOGRAPHY - COLON CA SCREENING 1964 FIT - COLON CA SCREENING 1964 FLEX SIG - COLON CA SCREENING 1964 LIPID TESTING 1964 MAMMOGRAM 1964 PAP SMEAR 1964 HIV SCREENING 1979 HEPATITIS C SCREENING 09/11/1982 DTAP/TDAP/TD VACCINES (1 - Tdap) 1983 PNEUMOCOCCAL VACCINE 50+ (1 of 1 - PCV) 2014 ZOSTER VACCINE (1 of 2) 2014 SCREENING FOR DIABETES 06/20/2019 COVID-19 VACCINE ( - 2023-2 5 season) 2024 INFLUENZA VACCINE (#1) 2024 DEPRESSION SCREENING 09/13/2024 COLONOSCOPY - COLON CA SCREENING 06/13/2030 06/13/20 Colorectal Cancer Screening 06/13/2030 Respiratory Syncytial Virus (RSV) Vaccine Pt: or over 60 yrs (1 - 1-dose 75+ series) 2039 HEPATITIS B VACCINE Aged Out No longe r eligible based on patient's age to complete this topic HIB VACCINE Aged Out No longer eligi ble based on patient's age to complete this topic HPV VACCINE Aged Out No longer eligi ble based on patient's age to complete this topic MENINGOCOCCAL (Group B) VACCINE Aged Out No longer eligible based on patient's age to complete this topic MENINGOCOCCAL VACCINE Aged Out No vianey evelin eligible based on patient's age to complete this topic PNEUMOCOCCAL VACCINE Aged Out No long er eligible based on patient's age to complete this topic Care Teams Renal Case Manager Relationship Specialty Start Date End Date Loni Marks PA [address] [place] [address] PCP - General 11/29/18
--- OUTSIDE RECORDS SUMMARY | 2024-10-26 15:23 | XMS_ITS | Patient Health Summary ---
Author Organization [facility] [employer] Address [address] [place] [address] Care Team Providers Care Subscription Agent Name Role Phone Loni Marks Primary Care Pr ovider Note from [facility],non-owned Affiliates and Associated Physician Practices is amultiple site organization consisting of ambulatory clinics and hospital sitesin [place], [place], [place] and [place]. This disclosure is being madepursuant to the Care Everywhere program and may not contain all information available regarding this patient. Last updated 18.[facility] [employer] Allergies * Codeine(Itching) -Medium Criticality Medications * Be aware that medications may not be up to date on this document. Alwaysverify current medications with the patient. * Multiple Vitamins-Minerals (MULTIVITAMIN ADULTS PO) multivitamin * ELMIRON 100 MG capsule(Started 04/28/2019) Take 100 mg by mouth 3 refills left Social History Tobacco Use Types Packs/Day Years [...] Mass Index 27.12 06/20/2019 8:01 AM CDT Procedures * CT ABDOMEN PELVIS WO CONTRAST(Performed 08/07/2020) Performed for Recurrent UTI * CHLAMYDIA + GC + TRICH DNA AMPL(Performed 06/20/2019) Performed for Dyspareunia in female * CULTURE URINE(Performed 06/20/2019) Performed for Dysuria * CT UROGRAM(Performed 12/07/2018) Performed for Gross hematuria * CREATININE BLOOD - POINT OF CARE (IP)(Performed 12/07/2018) Performed for Gross hematuria Results * CT ABDOMEN PELVIS WO CONTRAST (08/07/2020 1:06 PM FOOD AND BEVERAGE ASSISTANT) Anatomical Region Laterality Modality Abdomen, Pelvis Computed Tomogra phy 08/07/2020 1:10 PM FOOD AND BEVERAGE ASSISTANT Impressions 08/07/2020 1:40 PM FOOD AND BEVERAGE ASSISTANT No acute intra-abdominal or pelvic abnormality. Edited by Anay Bo on 08/07/2020 1:23 PM *Reading Radiologist: Alejo Louie on 08/07/2020 at 1:40 PM Narrative 08/07/2020 1:40 PM FOOD AND BEVERAGE ASSISTANT CT ABDOMEN AND PELVIS HISTORY: Left-sided flank pain and urinary tract infection TECHNIQUE: Noncontrast CT abdomen and pelvis is obtained and compared to 12/07/2018. Left renal cortical defects are stable and unchanged. There is no left kidney stone or obstructive change. The right kidney is grossly normal. The visualized ureters and bladder are normal. The uterus is normal. No adnexal mass is seen. A right hepatic hypodensities is unchanged. Persistent minimal duct dilatation of the common hepatic and common bile duct is stable and unchanged. The spleen, pancreas and adrenal glands are normal. Visualized stomach and large and small bowel are normal. There is no free air or free fluid. Small mesenteric lymph nodes present without adenopathy. The heart size is normal without pericardial effusion. The lung bases are clear Procedure Note Alejo Louie MD - 08/07/2020 CT ABDOMEN AND PELVIS HISTORY: Left-sided flank pain and urinary tract infection TECHNIQUE: Noncontrast CT abdomen and pelvis is obtained and compared to 12/07/2018. Left renal cortical defects are stable and unchanged. There is no left kidney stone or obstructive change. The right kidney is grossly normal. The visualized ureters and bladder are normal. The uterus is normal. No adnexal mass is seen. A right hepatic hypodensities is unchanged. Persistent minimal duct dilatation of the common hepatic and common bile duct is stable and unchanged. The spleen, pancreas and adrenal glands are normal. Visualized stomach and large and small bowel are normal. There is no free air or free fluid. Small mesenteric lymph nodes present without adenopathy. The heart size is normal without pericardial effusion. The lung bases are clear IMPRESSION No acute intra-abdominal or pelvic abnormality. Edited by Anay Bo on 08/07/2020 1:23 PM *Reading Radiologist: Alejo Louie on 08/07/2020 at 1:40 PM Jonha Hi MD CT ORDERABLES * CHLAMYDIA + GC + TRICH DNA AMPL (06/20/2019 9:31 AM CDT) Chlamydia trachomatis RNA NOT DETECTED NOT DETECTED [employer] GC RNA NOT DETECTED NOT DETECTED [facility] Please Note [facility] Comment: This test was performed using the APTIMA COMBO2 Assay ([employer] The analytical performance characteristics of this assay, when used to test SurePath specimens have been determined by [facility]. Trichomonas vaginalis RNA Qualitative NOT DETECTED NOT DETECTED [facility] Comment: This test was performed using the APTIMA(R) Trichomonas vaginalis assay (Gen-Probe(R)). For more information on this test, go to: http://education.[employer]/faq/Trichomonastma Test Performed at: [facility] [id number] [place] [id number] RINA VILLARREAL DO,MPH Microbiology ENTIRE ENDOCERVIX / Unknown 06/20/2019 9:31 AM CDT 06/20/2019 9:46 PM CDT Kyle Chanel Jr., MD LAB - MICROBIOLO GY ORDERABLES [facility] [address] [place] [address] * CULTURE URINE (06/20/2019 9:31 AM CDT) Culture [facility] Comment: CULTURE, URINE, ROUTINE MICRO NUMBER: [id number] TEST STATUS: FINAL SPECIMEN SOURCE: URINE, CLEAN CATCH SPECIMEN QUALITY: ADEQUATE RESULT: Multiple organisms present, each less than 10,000 CFU/mL. These organisms, commonly found on external and internal genitalia, are considered to be colonizers. No further testing performed. Test Performed at: [facility] [phone] NICHOLAS OROSCO MD Urine MID-STREAM URINE SPECIMEN / Unknown 06/20/2019 9:31 AM CDT 06/20/2019 11:13 PM CDT Kyle Chanel Jr., MD LAB - MICROBIOLO GY ORDERABLES [address] [address] * CT UROGRAM (12/07/2018 10:14 AM CDT) Anatomical Region Laterality Modality Abdomen, Pelvis Computed Tomogra phy 12/07/2018 10:3 3 AM CDT Narrative 12/07/2018 11:[address] UROGRAM HISTORY: Hematuria TECHNIQUE: Pre- and postcontrast imaging prior to and following intravenous administration of 100 mL of Isovue 370 were obtained. Delayed images through the collecting system were initially obtained. Precontrast imaging demonstrates cortical deformity of the left kidney suggesting old infection. The kidneys are otherwise grossly normal without evidence of kidney stones. Following intravenous contrast administration, there is symmetric bilateral concentration and excretion of contrast. A right-sided column of Robin is present. No renal cortical mass is present. Otherwise, the visualized calyces and infundibular renal pelves are normal. The visualized ureters and bladder are normal. There is a small hypodense lesion in the posterior segment of the right lobe of the liver measuring approximately 0.7 cm, too small to characterize but likely representing a cyst. The liver is otherwise normal. The gallbladder is surgically absent. There is intra- and extrahepatic bile duct dilatation which could be due to prior cholecystectomy. Correlation with liver enzymes are recommended. The pancreas is normal without duct dilatation. The spleen and adrenal glands are normal. The uterus and adnexa are grossly unremarkable. Large and small bowel are normal. There is no free air or free fluid. The vascular structures enhance normally without adenopathy. The lung bases are clear. Postsurgical changes are present within the right breast. DIAGNOSIS: There are cortical defects in the left kidney, consistent with prior infection. Associated calyceal diverticula are present on the left. There is a right column of Robin. The kidneys are otherwise normal without evidence of renal cortical mass, kidney stones. The ureters and bladder are unremarkable. There is a nonspecific hypodense lesion in the liver likely representing a cyst. Intra- and extrahepatic bile duct dilatation may be due to prior cholecystectomy and correlation with liver enzymes and bilirubin levels are recommended. Edited by Anay Bo on 12/07/2018 11:02 AM Reading Radiologist: Alejo Louie MD on 12/07/2018 at 11:25 AM Procedure Note Alejo Louie MD - 12/07/2018 CT UROGRAM HISTORY: Hematuria TECHNIQUE: Pre- and postcontrast imaging prior to and following intravenous administration of 100 mL of Isovue 370 were obtained. Delayed images through the collecting system were initially obtained. Precontrast imaging demonstrates cortical deformity of the left kidney suggesting old infection. The kidneys are otherwise grossly normal without evidence of kidney stones. Following intravenous contrast administration, there is symmetric bilateral concentration and excretion of contrast. A right-sided column of Robin is present. No renal cortical mass is present. Otherwise, the visualized calyces and infundibular renal pelves are normal. The visualized ureters and bladder are normal. There is a small hypodense lesion in the posterior segment of the right lobe of the liver measuring approximately 0.7 cm, too small to characterize but likely representing a cyst. The liver is otherwise normal. The gallbladder is surgically absent. There is intra- and extrahepatic bile duct dilatation which could be due to prior cholecystectomy. Correlation with liver enzymes are recommended. The pancreas is normal without duct dilatation. The spleen and adrenal glands are normal. The uterus and adnexa are grossly unremarkable. Large and small bowel are normal. There is no free air or free fluid. The vascular structures enhance normally without adenopathy. The lung bases are clear. Postsurgical changes are present within the right breast. DIAGNOSIS: There are cortical defects in the left kidney, consistent with prior infection. Associated calyceal diverticula are present on the left. There is a right column of Robin. The kidneys are otherwise normal without evidence of renal cortical mass, kidney stones. The ureters and bladder are unremarkable. There is a nonspecific hypodense lesion in the liver likely representing a cyst. Intra- and extrahepatic bile duct dilatation may be due to prior cholecystectomy and correlation with liver enzymes and bilirubin levels are recommended. Edited by Anay Bo on 12/07/2018 11:02 AM Reading Radiologist: Alejo Louie MD on 12/07/2018 at 11:25 AM Jonah Hi MD CT ORDERABLES * CREATININE BLOOD - POINT OF CARE (IP) (12/07/2018 10:00 AM CDT) Creatinine POCT 0.76 0.7 - 1.2 mg/dL [facility] POCT TESTING QC Verified Yes Yes [facility] POC T TESTING Blood BLOOD SPECIMEN / Unknown 12/07/2018 10:00 AM CDT Jonah Hi MD LAB - POINT OF CARE ORDERABLES [facility] POCT TESTING [address] [phone] Care Teams Subscription Agent Relationship Specialty Start Date End Date Loni Marks PA [address] [place] [id number] PCP - General 11/29/18
--- OUTSIDE RECORDS SUMMARY | 2024-10-26 15:23 | XMS_ITS | Data Portability ---
Author Organization [place] - [facility] [employer], Main Office Address [address] [place] [address] Assessment Encounter Date Assessment Date Assessment LastModified by Organization Details LastModified Time 01/18/2023 01/18/2023 colonoscopy jun 2020. UTD. mammogram UTD dental and eye exams UTD [email or web address] Not available 01/18/2023 15:26:46 Plan of Treatment Reminders Order Date Submit Date Provider Last Modified By Organization Details Last Modified Time Details Appointments None recorded. Lab TSH + free T4, serum 2022 023 ANA LILIA [facility], [address], [address], [place], [address], 3 10:46:09 lipid panel, serum 2022 023 moe Bird, [address], [address], [place], [address], 3 11:35:00 CMP, serum or plasma 2022 023 [email or web address] Bird, [address], [address], [place], [address], 3 11:35:17 CBC w/ auto diff 2022 023 moe Bird, [address], [address], [place], [address], 3 11:35:17 vitamin D, 25-hydroxy, total, serum 2022 023 moe Bird, 2022 [address], [address], [place], [address], 11:35:16 vitamin B12, serum 2022 023 [email or web address] [facility], [address], [address], [place], [address], 11:34:53 HbA1c (hemoglobin A1c), blood 2022 023 [email or web address] [facility], [address], [place], [address], 11:35:16 Referral None recorded. Procedures None recorded. Surgeries None recorded. Imaging XR, hip, unilateral 2022 023 ANA LILIA Not available 16:09:59 Medication Orders nystatin 100,000 unit/mL oral suspension 2022 023 ANA LILIA [id number], [address] [place], [address], 10:15:43 Patient TargetsNo targets recorded. Patient InstructionsNo instructions recorded. Reason for Referral None Reported. Results Created Date Observation Date Name Description Value Unit Range Abnormal Flag Note LastModifiedBy Organization Detail LastModifiedTime 03/30/2002/05/2023 CT, abdom en + pelvi s, w/ contr ast No observ ation record ed. [address], [place], [address], 03/31/2023 15:10:53 04/06/20 23 04/05/2023 colon oscop y scree ac (PROC ) No observ ation record ed. [email or web address] Not Available 2022 09:57:37 05/18/20 23 01/15/2023 CT, abdom en + pelvi s, w/ contr ast No observ ation record ed. [facility] Not Available 2022 16:07:04 06/16/20 23 06/16/2023 XR, hip, unila teral No observ ation record ed. [email or web address] [facility] [address], [place], [address], 06/18/2023 15:26:48 10/05/19 24 10/05/2023 MAMMO , diagn ostic , digit al, bilat eral No observ ation record ed. [email or web address] [address], [address], 10/06/2023 14:30:01 Result Notes None recorded. Problems Name Problem SNOMED Code Status Onset Date Resolution Date Notes Provider Name and Address Organization Details Recorded Time Suprapubic pain 560477606 Active Not Available [facility] 3 17:29:42 Spondyloli sthesis 564091047 Active Not Available [facility] 3 17:29:42 Left lower quadrant pain 204674827 Active Not Available [facility] 3 17:29:42 Right upper quadrant pain 023885750 Active Not Available [facility] 3 17:29:43 Hypoglycem ia 463291247 Active Not Available [facility] 3 17:29:43 Lower urinary tract symptoms 918564862 Active Not Available [facility] 3 17:29:43 Diverticul ar disease 794906272 Active Not Available [facility] 3 17:29:43 Adhesive capsulitis of shoulder 749804550 Active Not Available [facility] 3 17:29:43 Pharyngiti s 201598389 Active Not Available [facility] 3 17:29:43 Dysuria 63651875 Active Not Available [facility] 3 17:29:43 Fatigue 68870610 Active Not Available [facility] 3 17:29:43 Vitamin D deficiency 47266364 Active 2022 TYRA Sol [address] [place] [address], [place], [address] , [facility] 3 15:24:21 Diverticul ar disease of colon 358697586 Active 2022 [facility] Sol [address], [address], [place], [address] , [place] [facility] 3 15:25:04 Chronic interstiti al cystitis 720363059 Active 2022 [facility] Sol [address], [address], [place], [address] , [place] [facility] 3 15:25:37 Acute urinary tract infection 887738873 Active 2022 [facility] Sol [address], [address], [place], [address] , [place] [facility] 3 10:09:26 Urinary tract infectious disease 89825513 Active 2022 [facility] Sol [address], [address], [place], [address] , [place] [facility] 3 10:14:27 Allergic rhinitis 99360076 Active 2022 [facility] Sol [address], [address], [place], [address] , [place] [facility] 3 10:14:33 Pain in right hip joint 0128326899249 02 Active 2022 [facility] Sol [address], [address], [place], [address] , [place] [facility] 3 10:14:38 Coating of mucous membrane of tongue 408904445 Active 2022 [facility] Sol [address], [address], [place], [address] , [place] [facility] 3 10:15:21 Lump of axillary tail of right breast 7299820674779 06 Active 2022 [facility] Sol [address], [address], [place], [address] , [place] [facility] 3 09:45:11 Problem Notes None recorded. Procedures Surgical History Date Name Laterality Status Provider Name and Address Organization Details Recorded Time 09/13/19 10 cholecystectomy completed LEONIE Brown [place] [facility] 01/18/2023 14:07:31 09/13/19 08 section completed LEONIE Brown [place] 01/18/2023 14:09:03 09/13/19 00 Breast Surgery completed LEONIE Brown [place] [facility] 01/18/2023 14:08:43 Imaging Results Imaging Date Name Status LastModified by Organiz ation Details LastModified Time 02/05/2023 CT, abdomen + pelvis, w/ contrast completed [place] [address] [facility], [place], [address], 03/31/2023 15:10:53 04/05/2023 colonoscopy [facility] (PROC[facility] Information not available 06/16/2023 09:57:37 01/15/2023 CT, abdomen + pelvis, w/ contrast completed [facility] Information not available 05/18/2023 16:07:04 06/16/2023 XR, hip, unilateral completed [address], [place], [address], 06/18/2023 15:26:48 10/05/2023 MAMMO, diagnostic, digital, bilateral completed [address], [address], 10/06/2023 14:30:01 Procedure Notes None recorded. Medical Equipment None Reported. Allergies Allergen ID Allergen Name Allergen Category Reaction Reaction Severity Criticality Documentation Date Start Date Code Code System Note Provider Name and Address Organization Details Recorded Time 86148 codeine medicatio n rash Not available Not available 11/11/2022 2670 RxNorm Not Available [employer] 17:30:55 Medications Name Sig Start Date Stop Date Status Note LastModified by Organization Details LastModified Time nystatin 100,000 unit/mL oral suspension Take 5 mL 4 times a day by oral route as directed. active Not Available Not Available No t Available azithromyc in 250 mg tablet TAKE 2 TABLETS (500 MG) BY ORAL ROUTE ONCE DAILY FOR 1 DAY THEN 1 TABLET (250 MG) BY ORAL ROUTE ONCE DAILY FOR 4 DAYS 2014 active Not Available Not Available Not Avai lable ibuprofen 800 mg tablet TAKE 1 TABLET BY MOUTH 3 TIMES A DAY TAKE WITH MEALS 05/26 completed Not Available Not Available Not Available fluconazol e 150 mg tablet TAKE 1 TABLET BY MOUTH ONE TIME FOR ONE DOSE 09/14 completed Not Available Not Available Not Available benzonatat e 200 mg capsule Take 1 capsule 3 times a day by oral route. 01/18 completed Not Available Not Available Not Available ampicillin 500 mg capsule TAKE ONE CAPSULE BY MOUTH EVERY 8 HOURS FOR 7 DAYS active Not Available Not Available No t Available valacyclov ir 1 gram tablet TAKE 1 TABLET BY MOUTH EVERY 8 HOURS 01/18 completed Not Available Not Available Not Available cephalexin 250 mg capsule 04/21 completed Not Available Not Available Not Available hydrocodon e 5 mg-acetami nophen 325 mg tablet TAKE 1 TABLET BY MOUTH EVERY 6 HOURS 05/26 completed Not Available Not Available Not Available phenazopyr idine 200 mg tablet Take 1 tablet 3 times a day by oral route for 3 days. active Not Available Not Available No t Available ondansetro n HCl 4 mg tablet TAKE 1 TABLET BY MOUTH THREE TIMES A DAY active Not Available Not Available No t Available Medrol (Thai) 4 mg tablets in a dose pack Take by oral route. 2014 active error Not Available Not Available Not Avai lable terconazol e 0.8 % vaginal cream 05/26 completed Not Available Not Available Not Available Elmiron 100 mg capsule 1 CAPSULE BY MOUTH FOUR TIMES DAILY active Not Available Not Available No t Available metronidaz ole 500 mg tablet Take 1 tablet every 8 hours by oral route. 10/17 completed Not Available Not Available Not Available ciprofloxa juan daniel 250 mg tablet 05/26 completed Not Available Not Available Not Available ciprofloxa juan daniel 500 mg tablet TAKE 1 TABLET BY MOUTH EVERY 12 HOURS 06/15 completed Not Available Not Available Not Available sulfametho xazole 800 mg-trimeth oprim 160 mg tablet TAKE 1 TABLET BY MOUTH TWICE A DAY 01/18 completed Not Available Not Available Not Available hydrocodon e 10 mg-acetami nophen 325 mg tablet 05/26 completed Not Available Not Available Not Available amoxicilli n 875 mg tablet TAKE 1 TABLET(S) EVERY 12 HOURS BY ORAL ROUTE FOR 10 DAYS. active Not Available Not Available No t Available amitriptyl ine 25 mg tablet 05/26 completed Not Available Not Available Not Available amitriptyl ine 10 mg tablet TAKE 1 TABLET BY MOUTH AT BEDTIME 10/18 completed Not Available Not Available Not Available phenazopyr idine 100 mg tablet 05/26 completed Not Available Not Available Not Available cephalexin 500 mg capsule TAKE 1 CAPSULE EVERY 6 HOURS FOR 7 DAYS 01/18 completed Not Available Not Available Not Available nystatin 100,000 unit/gram topical cream APPLY TO THE AFFECTED AREA(S) BY TOPICAL ROUTE 2 TIMES PER DAY SKIN LESIONS active Not Available Not Available No t Available omeprazole 20 mg capsule,de layed release active Not Available Not Available Not Available amoxicilli n 250 mg capsule TAKE 1 CAPSULE BY MOUTH THREE TIMES A DAY 10/18 completed Not Available Not Available Not Available azelastine 137 mcg (0.1 %) nasal spray [place] 2 sprays twice a day by intranasa l route. active Not Available Not Available No t Available levofloxac in 500 mg tablet TAKE 1 TABLET(S) EVERY 24 HOURS BY ORAL ROUTE. 05/25 completed Not Available Not Available Not Available ondansetro n 4 mg disintegra ting tablet Place 1 tablet every 4-6 hours by transling ual route as needed. 01/18 completed Not Available Not Available Not Available cefdinir 300 mg capsule TAKE 1 CAPSULE BY MOUTH TWICE A DAY 01/18 completed Not Available Not Available Not Available dicyclomin e 10 mg capsule TAKE 1 CAPSULE BY MOUTH THREE TIMES A DAY active Not Available Not Available No t Available naproxen 500 mg tablet 10/18 completed Not Available Not Available Not Available Kelp tablet Take by oral route. 09/14 completed Not Available Not Available Not Available amoxicilli n 875 mg-potassi um clavulanat e 125 mg tablet TAKE 1 TABLET BY MOUTH EVERY 12 HOURS active Not Available Not Available No t Available amoxicilli n 500 mg-potassi um clavulanat e 125 mg tablet TAKE 1 TABLET BY MOUTH TWICE A DAY 01/18 completed Not Available Not Available Not Available amoxicilli n-potassiu m clavulanat e 1,000 mg-62.5 mg tablet,ext .rel 12hr 10/06 completed Not Available Not Available Not Available cyclobenza judy 5 mg tablet TAKE 1 TABLET BY MOUTH THREE TIMES A DAY NEEDED 10/18 completed Not Available Not Available Not Available nitrofuran toin monohydrat e/macrocry stals 100 mg capsule TAKE 1 CAPSULE BY MOUTH TWICE A DAY 01/18 completed Not Available Not Available Not Available magnesium daily 2014 active Not Available Not Available Not Avai lable digestive enzymes weekly 2014 active Not Available Not Available Not Avai lable zinc 2014 active Not Available Not Available Not Avai lable Fish Oil takes every now and then 05/26 completed Not Available Not Available Not Available L-Tyrosine daily 09/14 completed Not Available Not Available Not Available multivitam in takes daily 2015 active Not Available Not Available Not Avai lable Probiotic OTC tab once dialy 04/21 completed Not Available Not Available Not Available Suprep Bowel Prep Kit 17.5 gram-3.13 gram-1.6 gram oral solution TAKE 354 ML BY MOUTH ONCE FOR 1 DOSE 01/18 completed Not Available Not Available Not Available Vitamin D3 100 mcg (4,000 unit) capsule Take 1 unit every day by oral route. 2014 active one drop daily. Not Available Not Available Not Available Vitals Date Recorded Body weight Body mass index (BMI) Body height Heart rate Oxygen saturation Oxygen saturation in Arterial blood by Pulse oximetry Body temperature Systolic blood pressure Diastolic blood pressure Provider Name and Address Organization Details Last Updated DateTime 3 58906.9 6 g 27.1 kg/m2 177.8 cm 89 /min 99 % 99 % 98.4 [degF] 124 mm[Hg] 86 mm[Hg] Joslyn Akins RN [place] [facility] 3 15:02:20 Date Recorded Body height Body mass index (BMI) Body weight Body temperature Heart rate Oxygen saturation Oxygen saturation in Arterial blood by Pulse oximetry Systolic blood pressure Diastolic blood pressure Provider Name and Address Organization Details Last Updated DateTime 3 177.8 cm 25.8 kg/m2 04386.6 3 g 97.5 [degF] 80 /min 99 % 99 % 110 mm[Hg] 78 mm[Hg] Joslyn Akins RN [facility] 09:51:43 Social History Question Answer Notes LastModified by Organizat ion Details LastModified Time Tobacco Smoking Status Never Smoker Joslyn Akins RN null, [facility] [employer] [facility] 01/18/2023 14:04:46 What Is Your Level Of Alcohol Consumption? None [email or web address] Information not available 01/18/2023 What Is Your Level Of Caffeine Consumption? None [email or web address] Information not available 01/18/2023 In The 14 Days Before Symptom Onset, Have You Had Close Contact With A Laboratory-confirm ed COVID-19 While That Case Was Ill? No Information n ot available 01/18/2023 In The 14 Days Before Symptom Onset, Have You Had Close Contact With A Person Who Is Under Investigation For COVID-19 While That Person Was Ill? No [email or web address] Information not available 01/18/2023 Are You Currently Employed? No Information not available 06/15/2023 What Type Of Diet Are You Following? REGULAR [email or web address] Information n ot available 01/18/2023 What Is The Highest Grade Or Level Of School You Have Completed Or The Highest Degree You Have Received? 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 No [email or web address] Information no t available 01/18/2023 Do You Use Insect Repellent Routinely? No Information not available 06/15/2023 What Is Your Relationship Status? [email or web address] Information not available 01/18/2023 Do You Use Your Seat Belt Or Car Seat Routinely? Yes [email or web address] Information not available 01/18/2023 Are You Passively Exposed To Smoke? No [email or web address] Information no t available 01/18/2023 Are There Any Smokers In Your House? No [email or web address] Information not available 01/18/2023 Do You Feel Stressed (tense, Restless, Nervous, Or Anxious, Or Unable To Sleep At Night)? [id number] [email or web address] Information not available 01/18/2023 Do You Use Any Illicit Or Recreational Drugs? No [email or web address] Information not available 01/18/2023 Do You Use Sunscreen Routinely? Yes [email or web address] Information not available 06/15/2023 Have You Recently Traveled Abroad? No [email or web address] Information not available 01/18/2023 Do You Have Any Dietary Restrictions? No [email or web address] Information not available 01/18/2023 Do You Or Have You Ever Used Any Other Forms Of Tobacco Or Nicotine? No [email or web address] Information not available 01/18/2023 Sex: Female Functional Status Question Answer Note LastModified by Organization D etails LastModified Time What is your exercise level? None [email or web address] Information not available 01/18/2023 Mental Status None recorded. Family History Relationship Description Onset Age of this Age Resolved Age Notes LastModified by Organization Details LastModified Time Father Diabetes mellitus [email or web address] Not available 04/2023 14:03:23 Brother Malignant neoplasm of brain 58 [email or web address] Not available 04/2023 14:03:51 Medical History No medical history recorded. Gynecological HistoryNo gynecological history recorded. Obstetrics History GPAL:G 0 P 0 0 0 0 Past Encounters Encounter ID Performer Location Encounter Start Date Encounter Closed Date Diagnosis/Indication Diagnosis SNOMED-CT Code Diagnosis ICD10 Code Diagnosis Note [id number] [facility] [address] [place] [address] 01/18/2023 14:41:01 01/18/2023 15:29:51 Adult health examination 658780092 Z00.00 well exam completed; all annual labs ordered. Cholesterol screening 27 5297743 Z13.220 Diabetes m ellitus screening 981706999 Z13.1 Vitamin D deficiency 347 15905 E55.9 Endocrine/ metabolic screening 000211951 Z13.228 Thyroid di sorder screening 732195574 Z13.29 Long-term drug therapy 436355145 Z79.899 Diverticul ar disease of colon 199878612 K57.30 post recent flare with abscess. seeing general surgeon in 2 weeks for f/u. Chronic in terstitial cystitis 070590285 N30.10 managed by urology [id number] T[facility] Jason Moura [address] [place] [address] 06/16/2023 09:42:50 06/16/2023 10:19:32 Urinary tract infectious disease 24145588 N39.0 continue augmentin abx therapy pt was already given end of May. Allergic rhinitis 737799 04 J30.9 take OTC antihistam ine. nasal steroid spray if able. Pain in ri ght hip joint 0275500413 74119 M25.551 check xray right hip. r/o OA Coating of mucous membrane of tongue 224012345 K14.3 trial of nystatin swish and swallow. Health Concerns Section Related Observation LastModified by Organization Detai ls LastModified Time None Recorded Concern Status LastModified by Organization Details LastModified Time None Recorded Advance Directives Directive None Recorded Payers Encounter Date Sequence Insurance Name Policy Number Policy Mohamud Covered Member ID Mohamud Member ID Guarantor Name 01/18/2023 1 [facility] - [place]UE CARD (PPO) [id number] Catrachito Olguin [id number] Alana Olguin 06/16/2023 1 [facility] [id number] Catrachito Olguin [id number] Alana Olguin Notes Date Note Type Note Provider Name and Address Organization Details Recorded Time 3 text/html Bowel Complaints/Fecal IncontinenceReported bypatient.Notes:previousl y saw GI, has not seen since 2020 last seen 2020[facility] in [facility] for c/o bowel problems (records requested)- diverticulitis was dx. here for wellness today - no current complaints for you [facility] [address] [facility] [address], [place], [address], [facility] [employer] 02/10/2023 15:34:16 3 text/html EaracheReported bypatient.Location:bilate ral Quality:aching; dull Severity:same Timing:better; gradual Context:no sick contacts; no recent swimming/water in ear; no exposure to second hand smoke; no head trauma; not grinding teeth; no recent air travel Modifying Factors:does not hurt to lie on, or pull on ear; does not hurt to chew Associated Symptoms:no discharge from the ears; no hearing loss; no nose/sinus problems; no popping noise in the ears; no ringing in the ears;nose/sinus problemsUrinary FrequencyReported bypatient.Severity:mild Context:success with short term antibiotics Alleviating Factors:antibiotics Associated Symptoms:no abdominal pain; no chills;pain during urination;incomplete emptying of bladder;hesitancy;feeling s of urgency currently taking augmentin for uti [facility] [address] [facility] [address], [place], [address], [facility] 07/13/2023 00:20:22 OBGyn Episode No OBEpisode recorded.
--- OUTSIDE RECORDS SUMMARY | 2024-10-26 15:23 | XMS_ITS | Continuity of Care Document ---
Author Organization [facility] Address [address] [facility] [address] [place] [address] Phone Care Team Providers Care Biometrician Name Role Phone Kurtz OD, Cosme Unavailable Unavailable Advance Directives Directive Yes / No Effective Date File Name No Information Encounters Encounter Description Practice Location Reason(s) For Visit Diagnoses Date Provider Providers Copied on Encounter [facility], [address], [place], [place], [address], [place] tel:[phone] [facility] No Information [place] 7[address]200 6 Kurtz OD Cosme. [address] , [address], [place], [address], [place]. tel:[phone] Family History Family Member Type Diagnosis Age At Onset No Information Payers Payer name Insurance type Covered green party ID Authoriza tion(s) [facility] [employer] [id number] Social History Type Description Quantity Date Captured [...]
--- OUTSIDE RECORDS SUMMARY | 2024-10-26 15:23 | XMS_ITS | Clinical Summary ---
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 Gender Identity Not on file Sexual Orientation Not on file Plan of Treatment Health Maintenance Due Date Last Done Comments Hepatitis C Virus (HCV) Screening 1964 TdaP Immunization 1964 Pap Smear 1985 Cervical Cancer Screening (CCS) 1994 HPV/Cotest 1994 Colonoscopy 2009 Colorectal Cancer Screening 2009 Cologuard 2014 Immunochemical Fecal Occult Blood 2014 Mammogram 2014 Pneumococcal Immunization (5 0+ years) (1 of 1 - PCV) 2014 Zoster Immunization (1 of 2) 2014 Influenza Immunization (#1) 2024 SARS-COV-2 Immunization (2023-25 season) 2024 Respiratory Syncytial Virus (RSV) Immunization (Adult) (1 - 1-dose 75+ series) 2039 Hepatitis B Immunization Aged Out No longer eligible based on patient's age to complete this topic Meningococcal Immunization (ACWY) Aged Out No longer eligible based on patient's age to complete this topic Pneumococcal Immunization Combined Aged Out No longer eligible based on patient's age to complete this topic Rotavirus Immunization Aged Out No lo nger eligible based on patient's age to complete this topic [place] [address] [place] [address] Care Teams Environmental Health Aide Relationship Specialty Start Date End Date Loni Duong PA PCP - General Family Medicine 09/03/17
--- OUTSIDE RECORDS SUMMARY | 2024-10-26 15:24 | XMS_ITS | Data Portability ---
Author Organization [facility] Address [address] [place] [address] Assessment Encounter Date Assessment Date Assessment LastModified by Organization Details LastModified Time 05/13/2016 05/13/2016 Patient very symptomatic for uterine cramping. Adenomyosis should be on the differential diagnosis list. Will repeat ultrasound imaging. Not available 05/13/2016 18:32:13 06/03/2016 06/03/2016 D/W patient Nuswab results and ultrasound results. Counseled about fibroid uterus and thick endometrium. Offered endometrial biopsy. Patient refused. She wanted to f/u with Dr. Gloria. [email or web address] Not available 06/03/2016 18:48:56 06/10/2016 06/10/2016 Attempt was made to perform EMB after 20 minute discussion with patient and Re: endometrial thickening and inference of pathology. Cervix was stenotic, unable to pass endocell without dilatation. Did not thick patient could tolerate this without anesthetic. Discussed persistence of pelvic pain and dyspareunia for one year. tried to get patient to focus on clinical goals that she wanted and decision about follow up. Will consider her options and call Dr. Gloria with her decision. Not available 06/11/2016 10:53:31 Plan of Treatment Reminders Order Date Submit Date Provider Last Modified By Organization Details Last Modified Time Details Appointments None recorded. Lab biopsy, endometri al 2015 Tanna [facility], [address] [place] [address], [address], [place], [address], 6 13:08:18 pathology study - emb 2015 Tanna [email or web address] [facility], [address], [address], [place], [address], 6 12:06:24 urinalysi s, dipstick 2015 016 In-Office Order, Internal Use Only DO Not Attach Compendium DO Not Attach Compendium, Do Not Delete/merge, [id number] 6 10:54:31 test, urine 2015 016 [email or web address] In-Office Order, Internal Use Only DO Not Attach Compendium DO Not Attach Compendium, Do Not Delete/merge, [id number] 6 18:49:48 urinalysi s, dipstick 2015 016 [email or web address] In-Office Order, Internal Use Only DO Not Attach Compendium DO Not Attach Compendium, Do Not Delete/merge, [id number] 6 18:49:48 urinalysi s, dipstick 2015 016 In-Office Order, Internal Use Only DO Not Attach Compendium DO Not Attach Compendium, Do Not Delete/merge, [id number] 6 11:58:48 bacterial vaginosis + vaginitis panel, vaginal 2015 016 ANA LILIA [facility], [address], [address], [place], [address], 6 06:04:50 TSH + free T4, serum 2015 016 ANA LILIA [facility], [address], [address], [place], [address], 6 07:22:45 progester one, serum 2015 016 ANA LILIA [facility], [address], [address], [place], [address], 6 07:22:49 HbA1c (hemoglob in A1c), blood 2015 016 [facility] [address], [address], [place], [address], 6 07:22:47 CMP, serum or plasma 2015 016 ANA LILIA [facility], [address] [place], [place] [address]diann [address], [address], [place], [address], 6 07:22:46 FSH (follicle -stimulat ing hormone), serum 2015 016 [facility], [facility] [address], [address], [place], [address], 6 07:22:48 CBC w/ auto diff 2015 016 [facility], [address] [place] [address] [address], [address], [place], [address], 6 07:22:45 estradiol , serum 2015 016 [facility], [address] [place], [place] [address]jovan [address], [address], [place], [address], 6 07:22:48 urinalysi s, dipstick 2015 Tanna song In-Office Order, Internal Use Only DO Not Attach Compendium DO Not Attach Compendium, Do Not Delete/merge, [id number] 6 16:20:53 culture, urine 2015 016 ANA LILIA COOPER, [facility] [address], [address], [place], [address], 6 06:12:59 pap, IG + HPV, cervical 2015 016 ANA LILIA OBRIEN, [address], [address], [place], [address], 6 16:41:55 bacterial vaginosis + vaginitis panel, vaginal 2015 016 ANA LILIA OBRIEN, [address], [address], [place], [address], 6 06:11:53 HSV (1+2) DNA, qual, PCR, unspecifi ed specimen 2015 016 ANA LILIA OBRIEN, [address], [address], [place], [address], 6 06:11:54 unlisted lab - kathy 6 species profile, MANJIT 2015 016 ANA LILIA COOPERNARAYAN, [address]aye[address], [address], [place], [address], 6 06:11:54 test, urine 2014 Jaqui song In-Office Order, Internal Use Only DO Not Attach Compendium DO Not Attach Compendium, Do Not Delete/merge, [id number] 5 09:30:07 CBC w/ auto diff 2014 015 ANA LILIA COOPERNARAYAN, [address], [address], [place], [address], 5 16:34:31 progester one, serum 2014 015 ANA LILIA [facility], [address], [address], [place], [address], 5 16:34:36 HbA1c (hemoglob in A1c), blood 2014 015 ANA LILIA WESLEYJULIET[facility], [address], [address], [place], [address], 5 16:34:33 CMP, serum or plasma 2014 015 ANA LILIA [facility], [address], [address], [place], [address], 5 16:34:32 TSH, serum or plasma 2014 015 [email or web address] [facility], [address], [address], [place], [address], 5 16:20:44 FSH (follicle -stimulat ing hormone), serum 2014 015 [facility] L[facility], [address], [address], [place], [address], 5 16:34:34 estradiol , serum 2014 015 ANA LILIA OBRIEN, [address], [address], [place], [address], 5 16:34:35 urinalysi s, dipstick 2014 015 [email or web address] In-Office Order, Internal Use Only DO Not Attach Compendium DO Not Attach Compendium, Do Not Delete/merge, [id number] 5 09:30:07 bacterial vaginosis + vaginitis panel, vaginal 2014 015 [facility] L[facility]IA [facility], [address], [address], [place], [address], 5 11:41:55 HSV (1+2) DNA, qual, PCR, unspecifi ed specimen 2014 015 ANA LILIA OBRIEN, [address], [address], [place], [address], 5 11:41:56 culture, vaginal/r ectal, streptoco ccus group B 2014 015 [place] [facility], [address], [address], [place], [address], 5 11:41:56 Referral gastroent erologist referral - colitis and diverticu litis. needs colonosco py and f/u with specialis t 2015 016 [facility], [address], [address] [facility], [place], [address], 6 17:31:59 Procedures None recorded. Surgeries None recorded. Imaging US, transvagi nal 2015 016 [facility], [address] [place], [address], 6 13:50:22 Medication Orders Diflucan 150 mg tablet 2015 016 [id number], [address] [place], [address], 6 18:32:13 [place] 5 mg-325 mg tablet 2015 016 [facility], [address] [place], [address], 6 18:32:13 ibuprofen 800 mg tablet 2015 0[facility], [address] [place], [address], 6 18:32:13 nystatin 100,000 unit/gram topical cream 2014 015 michelleerman [facility], [address] [place], [address], 6 15:38:41 fluconazo le 150 mg tablet 2014 015 duncan [facility], [address] [place], [address], 6 15:38:41 Patient TargetsNo targets recorded. Patient Instructions Encounter Date Encounter Id Patient Instructions Last Modified By Organization Details Last Modified Time 12/20/[id number] candidiasis: care instructions [email or web address] Not available 12/24/2014 10:07:34 11/04/2015 [id number] irritable bowel syndrome: care instructions [email or web address] Not available 11/04/2015 16:20:54 05/13/2016 [id number] chronic pelvic pain: care instructions Not available 05/13/2016 18:32:13 06/03/2016 [id number] uterine fibroids: care instructions [email or web address] Not available 06/04/2016 09:11:19 06/10/2016 [id number] chronic pelvic pain: care instructions [email or web address] Not available 06/11/2016 12:06:05 uterine fibroids: care instructions [email or web address] Not available 06/11/2016 12:06:05 Reason for Referral colitis and diverticulitis. needs colonoscopy and f/u with specialist Referring Physician: Cosme Gloria, PROOF INSPECTOR, Encounter Date: 11/04/2015 Results Created Date Observation Date Name Description Value Unit Range Abnormal Flag Note LastModifiedBy Organization Detail LastModifiedTime 06/10/2006/10/2016 urina lysis , dipst ick Leukocytes Trace Not Available In-Offi ce Order Internal Use Only DO Not Attach Compendium DO Not Attach Compendium, Do Not Delete/merge, [id number] 06/10/2016 12:30:19 06/10/20 16 06/10/2016 urina lysis , dipst ick Nitrite negati ve Not Available In-Office Order Internal Use Only DO Not Attach Compendium DO Not Attach Compendium, Do Not Delete/merge, [id number] 06/10/2016 12:30:19 06/10/20 16 06/10/2016 urina lysis , dipst ick Urobilinogen .2 Not Available In-Of fice Order Internal Use Only DO Not Attach Compendium DO Not Attach Compendium, Do Not Delete/merge, 06/10/2016 12:30:19 06/10/20 16 06/10/2016 urina lysis , dipst ick Protein Negati ve Not Available In-Office Order Internal Use Only DO Not Attach Compendium DO Not Attach Compendium, Do Not Delete/merge, 06/10/2016 12:30:06/10/2006/10/2016 urina lysis , dipst ick pH 6.5 Not Available In-Office Order Internal Use Only DO Not Attach Compendium DO Not Attach Compendium, Do Not Delete/merge, 06/10/2016 12:30:06/10/2006/10/2016 urina lysis , dipst ick Blood Negati ve Not Available In-Office Order Internal Use Only DO Not Attach Compendium DO Not Attach Compendium, Do Not Delete/merge, 06/10/2016 12:30:06/10/20 16 06/10/2016 urina lysis , dipst ick Specific Valera 1.015 Not Available In-Off ice Order Internal Use Only DO Not Attach Compendium DO Not Attach Compendium, Do Not Delete/merge, 06/10/2016 12:30:06/10/20 16 06/10/2016 urina lysis , dipst ick Ketone Negati ve Not Available In-Office Order Internal Use Only DO Not Attach Compendium DO Not Attach Compendium, Do Not Delete/merge, 06/10/2016 12:30:06/10/20 16 06/10/2016 urina lysis , dipst ick Bilirubin Negati ve Not Available In-Office Order Internal Use Only DO Not Attach Compendium DO Not Attach Compendium, Do Not Delete/merge, 06/10/2016 12:30:06/10/20 16 06/10/2016 urina lysis , dipst ick Glucose Negati ve Not Available In-Office Order Internal Use Only DO Not Attach Compendium DO Not Attach Compendium, Do Not Delete/merge, 06/10/2016 12:30:06/03/2006/03/2016 urina lysis , dipst ick Leukocytes Trace Not Available In-Offi ce Order Internal Use Only DO Not Attach Compendium DO Not Attach Compendium, Do Not Delete/merge, 06/03/2016 10:34:06/03/20 16 06/03/2016 urina lysis , dipst ick Nitrite negati ve Not Available In-Office Order Internal Use Only DO Not Attach Compendium DO Not Attach Compendium, Do Not Delete/merge, 06/03/2016 10:34:06/03/20 16 06/03/2016 urina lysis , dipst ick Urobilinogen .2 Not Available In-Of fice Order Internal Use Only DO Not Attach Compendium DO Not Attach Compendium, Do Not Delete/merge, 06/03/2016 10:34:06/03/20 16 06/03/2016 urina lysis , dipst ick Protein Negati ve Not Available In-Office Order Internal Use Only DO Not Attach Compendium DO Not Attach Compendium, Do Not Delete/merge, 06/03/2016 10:34:06/03/20 16 06/03/2016 urina lysis , dipst ick pH 5.5 Not Available In-Office Order Internal Use Only DO Not Attach Compendium DO Not Attach Compendium, Do Not Delete/merge, 06/03/2016 10:34:06/03/20 16 06/03/2016 urina lysis , dipst ick Blood Negati ve Not Available In-Office Order Internal Use Only DO Not Attach Compendium DO Not Attach Compendium, Do Not Delete/merge, 06/03/2016 10:34:06/03/20 16 06/03/2016 urina lysis , dipst ick Specific Valera 1.020 Not Available In-Off ice Order Internal Use Only DO Not Attach Compendium DO Not Attach Compendium, Do Not Delete/merge, 06/03/2016 10:34:06/03/20 16 06/03/2016 urina lysis , dipst ick Ketone Negati ve Not Available In-Office Order Internal Use Only DO Not Attach Compendium DO Not Attach Compendium, Do Not Delete/merge, 06/03/2016 10:34:15 06/03/20 16 06/03/2016 urina lysis , dipst ick Bilirubin Negati ve Not Available In-Office Order Internal Use Only DO Not Attach Compendium DO Not Attach Compendium, Do Not Delete/merge, 06/03/2016 10:34:15 06/03/20 16 06/03/2016 urina lysis , dipst ick Glucose Negati ve Not Available In-Office Order Internal Use Only DO Not Attach Compendium DO Not Attach Compendium, Do Not Delete/merge, 06/03/2016 10:34:15 06/03/20 16 06/03/2016 pregn tiny test, urine HCG negati ve Not Available In-Office Order Internal Use Only DO Not Attach Compendium DO Not Attach Compendium, Do Not Delete/merge, 06/03/2016 10:34:15 05/13/20 16 05/13/2016 urina lysis , dipst ick Leukocytes Negati ve Not Available In-Office Order Internal Use Only DO Not Attach Compendium DO Not Attach Compendium, Do Not Delete/merge, 05/13/2016 14:56:44 05/13/20 16 05/13/2016 urina lysis , dipst ick Nitrite negati ve Not Available In-Office Order Internal Use Only DO Not Attach Compendium DO Not Attach Compendium, Do Not Delete/merge, 05/13/2016 14:56:44 05/13/20 16 05/13/2016 urina lysis , dipst ick Urobilinogen .2 Not Available In-Of fice Order Internal Use Only DO Not Attach Compendium DO Not Attach Compendium, Do Not Delete/merge, 05/13/2016 14:56:44 05/13/20 16 05/13/2016 urina lysis , dipst ick Protein Negati ve Not Available In-Office Order Internal Use Only DO Not Attach Compendium DO Not Attach Compendium, Do Not Delete/merge, 05/13/2016 14:56:44 05/13/20 16 05/13/2016 urina lysis , dipst ick pH 5.5 Not Available In-Office Order Internal Use Only DO Not Attach Compendium DO Not Attach Compendium, Do Not Delete/merge, 05/13/2016 14:56:44 05/13/20 16 05/13/2016 urina lysis , dipst ick Blood Negati ve Not Available In-Office Order Internal Use Only DO Not Attach Compendium DO Not Attach Compendium, Do Not Delete/merge, 05/13/2016 14:56:44 05/13/20 16 05/13/2016 urina lysis , dipst ick Specific Valera 1.030 Not Available In-Off ice Order Internal Use Only DO Not Attach Compendium DO Not Attach Compendium, Do Not Delete/merge, 05/13/2016 14:56:44 05/13/20 16 05/13/2016 urina lysis , dipst ick Ketone Negati ve Not Available In-Office Order Internal Use Only DO Not Attach Compendium DO Not Attach Compendium, Do Not Delete/merge, 05/13/2016 14:56:44 05/13/20 16 05/13/2016 urina lysis , dipst ick Bilirubin Negati ve Not Available In-Office Order Internal Use Only DO Not Attach Compendium DO Not Attach Compendium, Do Not Delete/merge, 05/13/2016 14:56:44 05/13/20 16 05/13/2016 urina lysis , dipst ick Glucose Negati ve Not Available In-Office Order Internal Use Only DO Not Attach Compendium DO Not Attach Compendium, Do Not Delete/merge, 05/13/2016 14:56:44 11/04/19 16 11/04/2015 urina lysis , dipst ick Leukocytes Trace Not Available In-Offi ce Order Internal Use Only DO Not Attach Compendium DO Not Attach Compendium, Do Not Delete/merge, 11/04/2015 15:08:08 11/04/19 16 11/04/2015 urina lysis , dipst ick Nitrite negati ve Not Available In-Office Order Internal Use Only DO Not Attach Compendium DO Not Attach Compendium, Do Not Delete/merge, 11/04/2015 15:08:08 11/04/19 16 11/04/2015 urina lysis , dipst ick Urobilinogen .2 Not Available In-Of fice Order Internal Use Only DO Not Attach Compendium DO Not Attach Compendium, Do Not Delete/merge, 11/04/2015 15:08:08 11/04/19 16 11/04/2015 urina lysis , dipst ick Protein Negati ve Not Available In-Office Order Internal Use Only DO Not Attach Compendium DO Not Attach Compendium, Do Not Delete/merge, 11/04/2015 15:08:08 11/04/19 16 11/04/2015 urina lysis , dipst ick pH 5.5 Not Available In-Office Order Internal Use Only DO Not Attach Compendium DO Not Attach Compendium, Do Not Delete/merge, 11/04/2015 15:08:08 11/04/19 16 11/04/2015 urina lysis , dipst ick Blood Non-He molyze d: Trace Not Available In-Office Order Internal Use Only DO Not Attach Compendium DO Not Attach Compendium, Do Not Delete/merge, 11/04/2015 15:08:08 11/04/19 16 11/04/2015 urina lysis , dipst ick Specific Valera 1.030 Not Available In-Off ice Order Internal Use Only DO Not Attach Compendium DO Not Attach Compendium, Do Not Delete/merge, 11/04/2015 15:08:08 11/04/19 16 11/04/2015 urina lysis , dipst ick Ketone Trace Not Available In-Office Order Internal Use Only DO Not Attach Compendium DO Not Attach Compendium, Do Not Delete/merge, 11/04/2015 15:08:08 11/04/19 16 11/04/2015 urina lysis , dipst ick Bilirubin Negati ve Not Available In-Office Order Internal Use Only DO Not Attach Compendium DO Not Attach Compendium, Do Not Delete/merge, 11/04/2015 15:08:08 11/04/19 16 11/04/2015 urina lysis , dipst ick Glucose Negati ve Not Available In-Office Order Internal Use Only DO Not Attach Compendium DO Not Attach Compendium, Do Not Delete/merge, 11/04/2015 15:08:08 12/21/19 15 12/20/2014 pregn tiny test, urine HCG negati ve Not Available In-Office Order Internal Use Only DO Not Attach Compendium DO Not Attach Compendium, Do Not Delete/merge, 12/20/2014 15:39:12 12/21/1912/20/2014 urina lysis , dipst ick Leukocytes Negati ve Not Available In-Office Order Internal Use Only DO Not Attach Compendium DO Not Attach Compendium, Do Not Delete/merge, 12/20/2014 15:38:49 12/21/1912/20/2014 urina lysis , dipst ick Nitrite negati ve Not Available In-Office Order Internal Use Only DO Not Attach Compendium DO Not Attach Compendium, Do Not Delete/merge, 12/20/2014 15:38:49 12/21/1912/20/2014 urina lysis , dipst ick Urobilinogen .2 Not Available In-Of fice Order Internal Use Only DO Not Attach Compendium DO Not Attach Compendium, Do Not Delete/merge, 12/20/2014 15:38:49 12/21/1912/20/2014 urina lysis , dipst ick Protein Negati ve Not Available In-Office Order Internal Use Only DO Not Attach Compendium DO Not Attach Compendium, Do Not Delete/merge, 12/20/2014 15:38:49 12/21/1912/20/2014 urina lysis , dipst ick pH 5.5 Not Available In-Office Order Internal Use Only DO Not Attach Compendium DO Not Attach Compendium, Do Not Delete/merge, 12/20/2014 15:38:49 12/21/1912/20/2014 urina lysis , dipst ick Blood Non-He molyze d: Trace Not Available In-Office Order Internal Use Only DO Not Attach Compendium DO Not Attach Compendium, Do Not Delete/merge, 12/20/2014 15:38:49 12/21/1912/20/2014 urina lysis , dipst ick Specific Valera 1.020 Not Available In-Off ice Order Internal Use Only DO Not Attach Compendium DO Not Attach Compendium, Do Not Delete/merge, 12/20/2014 15:38:49 12/21/19 15 12/20/2014 urina lysis , dipst ick Ketone Negati ve Not Available In-Office Order Internal Use Only DO Not Attach Compendium DO Not Attach Compendium, Do Not Delete/merge, 12/20/2014 15:38:49 12/21/19 15 12/20/2014 urina lysis , dipst ick Bilirubin Negati ve Not Available In-Office Order Internal Use Only DO Not Attach Compendium DO Not Attach Compendium, Do Not Delete/merge, 12/20/2014 15:38:49 12/21/19 15 12/20/2014 urina lysis , dipst ick Glucose Negati ve Not Available In-Office Order Internal Use Only DO Not Attach Compendium DO Not Attach Compendium, Do Not Delete/merge, 12/20/2014 15:38:49 12/21/19 15 12/20/2014 urina lysis , dipst ick Appearance Clear Not Available In-Offi ce Order Internal Use Only DO Not Attach Compendium DO Not Attach Compendium, Do Not Delete/merge, 12/20/2014 15:38:49 12/21/1912/20/2014 urina lysis , dipst ick Color Yellow Not Available In-Office Order Internal Use Only DO Not Attach Compendium DO Not Attach Compendium, Do Not Delete/merge, 12/20/2014 15:38:49 12/11/1912/10/2014 urina lysis , dipst ick Leukocytes Negati ve Not Available In-Office Order Internal Use Only DO Not Attach Compendium DO Not Attach Compendium, Do Not Delete/merge, 12/10/2014 11:59:06 12/11/1912/10/2014 urina lysis , dipst ick Nitrite negati ve Not Available In-Office Order Internal Use Only DO Not Attach Compendium DO Not Attach Compendium, Do Not Delete/merge, 12/10/2014 11:59:06 12/11/1912/10/2014 urina lysis , dipst ick Urobilinogen 1 Not Available In-Of fice Order Internal Use Only DO Not Attach Compendium DO Not Attach Compendium, Do Not Delete/merge, 12/10/2014 11:59:06 12/11/19 15 12/10/2014 urina lysis , dipst ick Protein Negati ve Not Available In-Office Order Internal Use Only DO Not Attach Compendium DO Not Attach Compendium, Do Not Delete/merge, 12/10/2014 11:59:06 12/11/19 15 12/10/2014 urina lysis , dipst ick pH 7.0 Not Available In-Office Order Internal Use Only DO Not Attach Compendium DO Not Attach Compendium, Do Not Delete/merge, 12/10/2014 11:59:06 12/11/19 15 12/10/2014 urina lysis , dipst ick Blood Non-He molyze d: Trace Not Available In-Office Order Internal Use Only DO Not Attach Compendium DO Not Attach Compendium, Do Not Delete/merge, 12/10/2014 11:59:06 12/11/19 15 12/10/2014 urina lysis , dipst ick Specific Valera 1.015 Not Available In-Off ice Order Internal Use Only DO Not Attach Compendium DO Not Attach Compendium, Do Not Delete/merge, 12/10/2014 11:59:06 12/11/19 15 12/10/2014 urina lysis , dipst ick Ketone Negati ve Not Available In-Office Order Internal Use Only DO Not Attach Compendium DO Not Attach Compendium, Do Not Delete/merge, 12/10/2014 11:59:06 12/11/19 15 12/10/2014 urina lysis , dipst ick Bilirubin Negati ve Not Available In-Office Order Internal Use Only DO Not Attach Compendium DO Not Attach Compendium, Do Not Delete/merge, 12/10/2014 11:59:06 12/11/19 15 12/10/2014 urina lysis , dipst ick Glucose Negati ve Not Available In-Office Order Internal Use Only DO Not Attach Compendium DO Not Attach Compendium, Do Not Delete/merge, 12/10/2014 11:59:06 12/21/19 15 12/25/2014 bacte rial vagin osis + vagin itis panel , vagin al atopobium vaginae LOW - 0 score Not Available [facility] ([facility]) [address] [facility], [place], [address], 12/26/2014 11:41:55 12/21/19 15 12/25/2014 bacte rial vagin osis + vagin itis panel , vagin al bvab 2 LOW - 0 score Not Available [facility] ([facility]) [address], [place], [address], 12/26/2014 11:41:55 12/21/1912/25/2014 bacte rial vagin osis + vagin itis panel , vagin al megasphaera 1 LOW - 0 score CALCU LATE TOTAL SCORE BY MARGARET Denis THE 3 INDIV IDUAL BACTE RIAL VAGIN OSIS (BV) MARKE R SCORE S TOGET HER. TOTAL SCORE IS INTER PRETE D FOLLO WS: . TOTAL SCORE 0-1: INDIC ATES THE ABSEN CE OF BV. TOTAL SCORE 2: INDET ERMIN ATE FOR BV. ADDIT IONAL CLINI ALON DATA SHOUL D BE EVALU ATED TO ESTAB JACINTO A DIAGN OSIS. TOTAL SCORE 3-6: INDIC ATES THE PRESE NCE OF BV. . THIS TEST WAS DEVEL OPED AND ITS PERFO RMANC E DANIELA CTERI STICS DETER MINED BY [facility]. IT HAS NOT BEEN CLEAR ED OR APPRO KARSON BY THE FOOD AND DRUG ADMIN ISTRA TION. THE FDA HAS DETER MINED THAT SUCH CLEAR ANCE OR APPRO GABRIELLA IS NOT NECES DARÍO. Not Available [facility] ([facility]) [address], [place], [address], 12/26/2014 11:41:55 12/21/1912/25/2014 bacte rial vagin osis + vagin itis panel , vagin al kathy albicans, MANJIT NEGATI VE negati ve Not Available [facility] ([facility]) [address] [facility], [place], [address], 12/26/2014 11:41:55 12/21/19 15 12/25/2014 bacte rial vagin osis + vagin itis panel , vagin al kathy glabrata, MANJIT NEGATI VE negati ve THIS TEST WAS ESTER MENA AND ITS PERFO RMJUSTIN E DANIELA WOODALLRI STICS DETER MINED BY [facility]. IT HAS NOT BEEN CLEAR ED OR APPRO KARSON BY THE FOOD AND DRUG ADMIN ISTRA TION. THE FDA HAS DETER MINED THAT SUCH CLEAR ANCE OR APPRO GABRIELLA IS NOT NECES DARÍO. Not Available [facility] ([facility]) [address] [place], [address], 12/26/2014 11:41:55 12/21/1912/26/2014 bacte rial vagin osis + vagin itis panel , vagin al trich vag by MANJIT NEGATI VE negati ve Not Available [facility] ([facility]) [address] [place], [address], 12/26/2014 11:41:55 12/21/19 15 12/26/2014 bacte rial vagin osis + vagin itis panel , vagin al chlamydia trachomatis, MANJIT NEGATI VE negati ve Not Available [facility] ([facility]) [address] [place], [address], 12/26/2014 11:41:55 12/21/19 15 12/26/2014 bacte rial vagin osis + vagin itis panel , vagin al neisseria gonorrhoeae, MANJIT NEGATI VE negati ve Not Available [facility] ([facility]) [address] [place], [address], 12/26/2014 11:41:55 12/21/1912/24/2014 HSV (1+2) DNA, qual, PCR, unspe cifie d speci men hsv 1 MANJIT NEGATI VE negati ve Not Available [facility] ([facility]) [address] [place], [address], 12/26/2014 11:41:56 12/21/192015 HSV (1+2) DNA, qual, PCR, unspe cifie d speci men hsv 2 MANJIT NEGATI VE negati ve Not Available [facility] ([facility]) [address] [facility], [place], [address], 12/26/2014 11:41:56 12/21/19 15 12/23/2014 cultu re, vagin al/re ctal, strep tococ cus group B strep gp B MANJIT NEGATI VE negati ve PENIC ILLIN G, AMPIC ILLIN , OR CEFAZ DANYELL ARE INDIC ATED FOR INTRA PARTU M PROPH YLAXI S OF PERIN ATAL GROUP B STREP (GBS) COLON IZATI ON. REFLE X SUSCE PTIBI LITY TESTI NG SHOUL D BE PERFO RMED PRIOR TO USE OF CLIND AMYCI N ONLY ON GBS ISOLA SHON FROM PENIC ILLIN -TANIA RGIC WOMEN WHO ARE CONSI DERED A HIGH RISK FOR ANAPH YLAXI S. TREAT MENT WITH VANCO MYCIN WITHO UT ADDIT IONAL TESTI NG IS WARRA NTED IF RESIS TANCE TO CLIND AMYCI N IS NOTED . (CDC GUIDE LINES , MMWR, 2009) Not Available [facility] ([facility]) [address] [facility], [place], [address], 12/26/2014 11:41:56 12/21/19 15 12/21/2014 CBC w/ auto diff WBC 5.5 x10e3 /uL 3.4-10 .8 Not Available [facility] ([facility]) [address] [facility], [place], [address], 12/26/2014 16:34:31 12/21/19 15 12/21/2014 CBC w/ auto diff RBC 4.68 x10e6 /uL 3.77-5 .28 Not Available [facility] ([facility]) [address] [place], [address], 12/26/2014 16:34:31 12/21/19 15 12/21/2014 CBC w/ auto diff hemoglobin 13.9 g/dL 11.1-1 5.9 Not Available [facility] ([facility]) [address] [facility], [place], [address], 12/26/2014 16:34:31 12/21/19 15 12/21/2014 CBC w/ auto diff hematocrit 41.5 % 34.0-4 6.6 Not Available [facility] ([facility]) [address] [facility], [place], [address], 12/26/2014 16:34:31 12/21/19 15 12/21/2014 CBC w/ auto diff MCV 89 fL 79-97 Not Available [facility] ([facility]) [address] [facility], [place], [address], 12/26/2014 16:34:31 12/21/19 15 12/21/2014 CBC w/ auto diff MCH 29.7 pg 26.6-3 3.0 Not Available [facility] ([facility]) [address] [facility], [place], [address], 12/26/2014 16:34:31 12/21/19 15 12/21/2014 CBC w/ auto diff MCHC 33.5 g/dL 31.5-3 5.7 Not Available [facility] ([facility]) [address] [facility], [place], [address], 12/26/2014 16:34:31 12/21/19 15 12/21/2014 CBC w/ auto diff RDW 13.2 % 12.3-1 5.4 Not Available [facility] ([facility]) [address] [facility], [place], [address], 12/26/2014 16:34:31 12/21/19 15 12/21/2014 CBC w/ auto diff platelets 298 x10e3 /uL 150-37 9 Not Available [facility] ([facility]) [address] [facility], [place], [address], 12/26/2014 16:34:31 12/21/19 15 12/21/2014 CBC w/ auto diff neutrophils 55 % Not Available [facility] ([facility]) [address] [place], [address], 12/26/2014 16:34:31 12/21/19 15 12/21/2014 CBC w/ auto diff lymphs 33 % Not Available [facility] ([facility]) [address] [place], [address], 12/26/2014 16:34:31 12/21/1912/21/2014 CBC w/ auto diff monocytes 8 % Not Available [facility] ([facility]) [address] [place], [address], 12/26/2014 16:34:31 12/21/1912/21/2014 CBC w/ auto diff eos 3 % Not Available [facility] ([facility]) [address] [place], [address], 12/26/2014 16:34:31 12/21/19 15 12/21/2014 CBC w/ auto diff basos 1 % Not Available [facility] ([facility]) [address] [place], [address], 12/26/2014 16:34:31 12/21/1912/21/2014 CBC w/ auto diff neutrophils (absolute) 3.1 x10e3 /uL 1.4-7. 0 Not Available [facility] ([facility]) [address] [place] [address], [address], 12/26/2014 16:34:31 12/21/1912/21/2014 CBC w/ auto diff lymphs (absolute) 1.8 x10e3 /uL 0.7-3. 1 Not Available [facility] ([facility]) [address] [place] [address], [address], 12/26/2014 16:34:31 12/21/19 15 12/21/2014 CBC w/ auto diff monocytes(ab solute) 0.4 x10e3 /uL 0.1-0. 9 Not Available [facility] ([facility]) [address] [place], [address], 12/26/2014 16:34:31 12/21/19 15 12/21/2014 CBC w/ auto diff eos (absolute) 0.2 x10e3 /uL 0.0-0. 4 Not Available [facility] ([facility]) [address] [place], [address], 12/26/2014 16:34:31 12/21/19 15 12/21/2014 CBC w/ auto diff baso (absolute) 0.0 x10e3 /uL 0.0-0. 2 Not Available [facility] ([facility]) [address] [facility], [place], [address], 12/26/2014 16:34:31 12/21/19 15 12/21/2014 CBC w/ auto diff immature granulocytes 0 % Not Available [facility] ([facility]) [address] [facility], [place], [address], 12/26/2014 16:34:31 12/21/1912/21/2014 CBC w/ auto diff immature grans (abs) 0.0 x10e3 /uL 0.0-0. 1 Not Available [facility] ([facility]) [address] [facility], [place], [address], 12/26/2014 16:34:31 12/21/1912/21/2014 CMP, serum or plasm a glucose, serum 99 mg/dL 65-99 Not Available [facility] ([facility]) [address] [place], [address], 12/26/2014 16:34:32 12/21/1912/21/2014 CMP, serum or plasm a BUN 13 mg/dL 6-24 Not Available [facility] ([facility]) [address] [place], [address], 12/26/2014 16:34:32 12/21/19 15 12/21/2014 CMP, serum or plasm a creatinine, serum 0.81 mg/dL 0.57-1 .00 Not Available [facility] ([facility]) [address] [facility] [place], [address], 12/26/2014 16:34:32 12/21/19 15 12/21/2014 CMP, serum or plasm a eGFR if nonafricn AM 85 mL/mi n/1.7 3 >59 Not Available [facility] ([facility]) [address] [facility] [place], [address], 12/26/2014 16:34:32 12/21/19 15 12/21/2014 CMP, serum or plasm a eGFR if africn AM 98 mL/mi n/1.7 3 >59 Not Available [facility] ([facility]) [address] [facility] [place], [address], 12/26/2014 16:34:32 12/21/19 15 12/21/2014 CMP, serum or plasm a BUN/creatini ne ratio 16 9-23 Not Available [facility] ([facility]) [address] [place], [address], 12/26/2014 16:34:32 12/21/19 15 12/21/2014 CMP, serum or plasm a sodium, serum 140 mmol/ L 134-14 4 Not Available [facility] ([facility]) [address] [place], [address], 12/26/2014 16:34:32 12/21/19 15 12/21/2014 CMP, serum or plasm a potassium, serum 4.3 mmol/ L 3.5-5. 2 Not Available [facility] ([facility]) [address] [place], [address], 12/26/2014 16:34:32 12/21/19 15 12/21/2014 CMP, serum or plasm a chloride, serum 97 mmol/ L 97-108 Not Available [facility] ([facility]) [address] [facility] [place], [address], 12/26/2014 16:34:32 12/21/1912/21/2014 CMP, serum or plasm a carbon dioxide, total 27 mmol/ L 18-29 Not Available [facility] ([facility]) [address] [facility] [place], [address], 12/26/2014 16:34:32 12/21/1912/21/2014 CMP, serum or plasm a calcium, serum 10.3 mg/dL 8.7-10 .2 high Not Available [facility] ([facility]) [address] [facility] [place], [address], 12/26/2014 16:34:32 12/21/1912/21/2014 CMP, serum or plasm a protein, total, serum 7.2 g/dL 6.0-8. 5 Not Available [facility] ([facility]) [address] [place], [address], 12/26/2014 16:34:32 12/21/1912/21/2014 CMP, serum or plasm a albumin, serum 4.7 g/dL 3.5-5. 5 Not Available [facility] ([facility]) [address] [facility] [place], [address], 12/26/2014 16:34:32 12/21/1912/21/2014 CMP, serum or plasm a globulin, total 2.5 g/dL 1.5-4. 5 Not Available [facility] ([facility]) [address] [place], [address], 12/26/2014 16:34:32 12/21/1912/21/2014 CMP, serum or plasm a A/G ratio 1.9 1.1-2. 5 Not Available [facility] ([facility]) [address] [place], [address], 12/26/2014 16:34:32 12/21/19 15 12/21/2014 CMP, serum or plasm a bilirubin, total 0.5 mg/dL 0.0-1. 2 Not Available [facility] ([facility]) [address] [place], [address], 12/26/2014 16:34:32 12/21/19 15 12/21/2014 CMP, serum or plasm a alkaline phosphatase, S 80 IU/L 39-117 Not Available [facility] ([facility]) [address] [place], [address], 12/26/2014 16:34:32 12/21/19 15 12/21/2014 CMP, serum or plasm a AST (SGOT) 26 IU/L 0-40 Not Available [facility] ([facility]) [address] [place] [address], [address], 12/26/2014 16:34:32 12/21/1912/21/2014 CMP, serum or plasm a ALT (SGPT) 25 IU/L 0-32 Not Available [facility] ([facility]) [address] [place], [address], 12/26/2014 16:34:32 12/21/19 15 12/20/2014 yfn (risk of ovari an malig ezio algor ithm score ), serum (lizzie enopa usal) premenopausa l interp: low COMMEN T IF THE PATIE NT IS PREME NOPAU BERNADETTE, THEN THE PREME NOPAU BERNADETTE YFN SCORE OF LESS THAN 1.31 IS CONSI STENT WITH A LOW LIKEL IHOOD OF FINDI NG A RIGOBERTO HOLGUIN ON SURGE RY. Not Available [facility] ([facility]) [address] [place], [address], 12/26/2014 16:34:32 12/21/1912/20/2014 yfn (risk of ovari an malig ezio algor ithm score ), serum (lizzie enopa usal) postmenopaus al interp: low COMMEN T IF THE PATIE NT IS POSTM ENOPA USAL, THEN THE POSTM ENOPA USAL YFN SCORE OF LESS THAN 2.77 IS CONSI STENT WITH A LOW LIKEL IHOOD OF FINDI NG A MALADRIEL EZIO ON SURGE RY. Not Available [facility] ([facility]) [address] [facility], [place], [address], 12/26/2014 16:34:32 12/21/19 15 12/20/2014 yfn (risk of ovari an malig ezio algor ithm score ), serum (lizzie enopa usal) comment: COMMEN T THE RISK FOR OVARI AN MALIG EZIO ALGOR ITHM (YFN ) TEST IS INTEN DED TO AID IN ASSES SING WHETH ER A PREME NOPAU BERNADETTE OR POSTM ENOPA USAL WOMAN WHO PRESE NTS WITH AN OVARI AN ADNEX AL MASS IS AT HIGH OR LOW LIKEL IHOOD OF FINDI NG RIGOBERTO HOLGUIN ON SURGE RY. YFN IS INDIC ATED FOR WOMEN WHO MEET THE FOLLO WING CRITE SAI: OVER AGE 18; OVARI AN ADNEX AL MASS PRESE NT FOR WHICH SURGE RY IS PLANN ED, AND NOT YET REFER RED TO AN ONCOL OGIST . YFN MUST BE INTER PRETE D IN CONJU NCTIO N WITH AN INDEP ENDEN T CLINI ALON AND RADIO LOGIC AL ASSES SMENT . THE TEST IS NOT INTEN DED A SCREE LORRAINE OR STAND -GERALDINE E DIAGN OSTIC ASSAY . Not Available [facility] ([facility]) [address] [facility], [place], [address], 12/26/2014 16:34:32 12/21/19 15 12/24/2014 yfn (risk of ovari an malig ezio algor ithm score ), serum (lizzie enopa usal) he4 45 pmol/ L 0-150 FUJIR EBIO EIA METHO DOLOG Y . CA125 VALUE S OBTAI NELLY WITH DIFFE RENT ASSAY METHO DS OR KITS CANNO T BE USED INTER LARSON EABLY . Not Available [facility] ([facility]) [address] [facility], [place], [address], 12/26/2014 16:34:32 12/21/19 12/26/2014 yfn (risk of ovari an malig ezio algor ithm score ), serum (lizzie enopa usal) cancer antigen 125 (Ca125) 16.2 U/mL 0.0-35 .0 ABBOT T CMIA METHO DOLOG Y Not Available [facility] ([facility]) [address] [place], [address], 12/26/2014 16:34:32 12/21/1912/26/2014 yfn (risk of ovari an malig ezio algor ithm score ), serum (lizzie enopa usal) premenopausa l yfn 0.59 see below Not Available [facility] ([facility]) [address] [place], [address], 12/26/2014 16:34:32 12/21/1912/26/2014 yfn (risk of ovari an malig ezio algor ithm score ), serum (lizzie enopa usal) postmenopaus al yfn 1.10 see below Not Available [facility] ([facility]) [address] [place], [address], 12/26/2014 16:34:32 12/21/1912/21/2014 HbA1c (hemo globi n A1c), blood hemoglobin A1C 5.3 % 4.8-5. 6 . INCRE ASED RISK FOR DIABE SHON: 5.7 - 6.4 DIABE SHON: >6.4 GLYCE HARJINDER CONTR OL FOR ADULT S WITH DIABE SHON: <7.0 Not Available [facility] ([facility]) [address] [place], [address], 12/26/2014 16:34:33 12/21/1912/21/2014 ca 125, serum cancer antigen (Ca) 125 15.6 U/mL 0.0-34 .0 FREDY ECLIA METHO DOLOG Y Not Available [facility] ([facility]) [address] [place], [address], 12/26/2014 16:34:34 12/21/1912/21/2014 FSH (foll icle- stimu latin g hormo ne), serum FSH 88.6 mIU/m L FOLLI CULAR PHASE 3.5 - 12.5 OVULA TION PHASE 4.7 - 21.5 LUTEA L PHASE 1.7 - 7.7 POSTM ENOPA USAL 25.8 - 134.8 Not Available [facility] ([facility]) [address] [place], [address], 12/26/2014 16:34:34 12/21/19 15 12/21/2014 estra diol, serum estradiol <5.1 pg/mL ADULT FEMAL E: FOLLI CULAR PHASE 12.5 - 166.0 OVULA TION PHASE 85.8 - 498.0 LUTEA L PHASE 43.8 - 211.0 POSTM ENOPA USAL <6.0 - 54.7 PREGN TINY 1ST TRIME STER 215.0 - >4300 .0 GIRLS (1-10 YEARS ) 6.0 - 27.0 FREDY ECLIA METHO DOLOG Y Not Available [facility] ([facility]) [address] [place], [address], 12/26/2014 16:34:35 12/21/1912/21/2014 TSH, ultra -sens itive , serum TSH 1.140 uIU/m L 0.450- 4.500 Not Available [facility] ([facility]) [address] [place], [address], 12/26/2014 16:34:36 12/21/1912/21/2014 proge stero ne, serum progesterone 0.4 NG/mL FOLLI CULAR PHASE 0.2 - 1.5 LUTEA L PHASE 1.7 - 27.0 OVULA TION PHASE 0.8 - 3.0 PREGN ANT FIRST TRIME STER 8.8 - 48.6 SECON D TRIME STER 12.4 - 75.8 THIRD TRIME STER 58.5 - 222.3 POSTM ENOPA USAL 0.1 - 0.8 Not Available [facility] ([facility]) [address] [place], [address], 12/26/2014 16:34:36 11/04/19 16 11/05/2015 TSH + free T4, serum TSH 1.100 uIU/m L 0.450- 4.500 Not Available [facility] ([facility]) [address] [place], [address], 11/05/2015 07:22:45 11/04/19 16 11/05/2015 TSH + free T4, serum T4,free(dire ct) 1.22 NG/dL 0.82-1 .77 Not Available [facility] ([facility]) [address] [place], [address], 11/05/2015 07:22:45 11/04/19 16 11/05/2015 CBC w/ auto diff WBC 5.5 x10e3 /uL 3.4-10 .8 Not Available [facility] ([facility]) [address] [place], [address], 11/05/2015 07:22:45 11/04/19 16 11/05/2015 CBC w/ auto diff RBC 4.75 x10e6 /uL 3.77-5 .28 Not Available [facility] ([facility]) [address] [place], [address], 11/05/2015 07:22:45 11/04/19 16 11/05/2015 CBC w/ auto diff hemoglobin 13.9 g/dL 11.1-1 5.9 Not Available [facility] ([facility]) [address] [place], [address], 11/05/2015 07:22:45 11/04/19 16 11/05/2015 CBC w/ auto diff hematocrit 40.8 % 34.0-4 6.6 Not Available [facility] ([facility]) [address] [place], [address], 11/05/2015 07:22:45 11/04/19 16 11/05/2015 CBC w/ auto diff MCV 86 fL 79-97 Not Available [facility] ([facility]) [address] [facility], [place], [address], 11/05/2015 07:22:45 11/04/19 16 11/05/2015 CBC w/ auto diff MCH 29.3 pg 26.6-3 3.0 Not Available [facility] ([facility]) [address] [facility], [place], [address], 11/05/2015 07:22:45 11/04/19 16 11/05/2015 CBC w/ auto diff MCHC 34.1 g/dL 31.5-3 5.7 Not Available [facility] ([facility]) [address] [facility], [place], [address], 11/05/2015 07:22:45 11/04/19 16 11/05/2015 CBC w/ auto diff RDW 13.0 % 12.3-1 5.4 Not Available [facility] ([facility]) [address] [facility], [place], [address], 11/05/2015 07:22:45 11/04/19 16 11/05/2015 CBC w/ auto diff platelets 408 x10e3 /uL 150-37 9 above high normal Not Available [facility] ([facility]) [address] [facility], [place], [address], 11/05/2015 07:22:45 11/04/19 16 11/05/2015 CBC w/ auto diff neutrophils 51 % Not Available [facility] ([facility]) [address] [facility], [place], [address], 11/05/2015 07:22:45 11/04/19 16 11/05/2015 CBC w/ auto diff lymphs 40 % Not Available [facility] ([facility]) [address] [facility], [place], [address], 11/05/2015 07:22:45 11/04/19 16 11/05/2015 CBC w/ auto diff monocytes 7 % Not Available [facility] ([facility]) [address] [place], [address], 11/05/2015 07:22:45 11/04/19 16 11/05/2015 CBC w/ auto diff eos 2 % Not Available [facility] ([facility]) [address] [place], [address], 11/05/2015 07:22:45 11/04/19 16 11/05/2015 CBC w/ auto diff basos 0 % Not Available [facility] ([facility]) [address] [place], [address], 11/05/2015 07:22:45 11/04/19 16 11/05/2015 CBC w/ auto diff immature cells SOFTWARE TEST SPECIALIST Not Available [facility] ([facility]) [address] [place], [address], 11/05/2015 07:22:45 11/04/19 16 11/05/2015 CBC w/ auto diff neutrophils (absolute) 2.8 x10e3 /uL 1.4-7. 0 Not Available [facility] ([facility]) [address] [place], [address], 11/05/2015 07:22:45 11/04/19 16 11/05/2015 CBC w/ auto diff lymphs (absolute) 2.2 x10e3 /uL 0.7-3. 1 Not Available [facility] ([facility]) [address] [place], [address], 11/05/2015 07:22:45 11/04/19 16 11/05/2015 CBC w/ auto diff monocytes(ab solute) 0.4 x10e3 /uL 0.1-0. 9 Not Available [facility] ([facility]) [address] [place], [address], 11/05/2015 07:22:45 11/04/19 16 11/05/2015 CBC w/ auto diff eos (absolute) 0.1 x10e3 /uL 0.0-0. 4 Not Available [facility] ([facility]) [address] [place], [address], 11/05/2015 07:22:45 11/04/19 16 11/05/2015 CBC w/ auto diff baso (absolute) 0.0 x10e3 /uL 0.0-0. 2 Not Available [facility] ([facility]) [address] [facility], [place], [address], 11/05/2015 07:22:45 11/04/19 16 11/05/2015 CBC w/ auto diff immature granulocytes 0 % Not Available [facility]) [address] [place], [address], 11/05/2015 07:22:45 11/04/19 16 11/05/2015 CBC w/ auto diff immature grans (abs) 0.0 x10e3 /uL 0.0-0. 1 Not Available [facility] ([facility]) [address] [facility], [place], [address], 11/05/2015 07:22:45 11/04/19 16 11/05/2015 CBC w/ auto diff NRBC SOFTWARE TEST SPECIALIST Not Available [facility] ([facility]) [address] [place], [address], 11/05/2015 07:22:45 11/04/19 16 11/05/2015 CBC w/ auto diff hematology comments: SOFTWARE TEST SPECIALIST Not Available [facility] ([facility]) [address] [place], [address], 11/05/2015 07:22:45 11/04/19 16 11/05/2015 CMP, serum or plasm a glucose, serum 108 mg/dL 65-99 above high normal Not Available [facility] ([facility]) [address] [place], [address], 11/05/2015 07:22:46 11/04/19 16 11/05/2015 CMP, serum or plasm a BUN 11 mg/dL 6-24 Not Available [facility] ([facility]) [address] [place], [address], 11/05/2015 07:22:46 11/04/19 16 11/05/2015 CMP, serum or plasm a creatinine, serum 0.76 mg/dL 0.57-1 .00 Not Available [facility] ([facility]) [address] [place], [address], 11/05/2015 07:22:46 11/04/19 16 11/05/2015 CMP, serum or plasm a eGFR if nonafricn AM 91 mL/mi n/1.7 3 >59 Not Available [facility] ([facility]) [address] [place], [address], 11/05/2015 07:22:46 11/04/19 16 11/05/2015 CMP, serum or plasm a eGFR if africn AM 105 mL/mi n/1.7 3 >59 Not Available [facility] ([facility]) [address] [place], [address], 11/05/2015 07:22:46 11/04/19 16 11/05/2015 CMP, serum or plasm a BUN/creatini ne ratio 14 9-23 Not Available [facility] ([facility]) [address] [place], [address], 11/05/2015 07:22:46 11/04/19 16 11/05/2015 CMP, serum or plasm a sodium, serum 143 mmol/ L 134-14 4 Not Available [facility] ([facility]) [address] [place], [address], 11/05/2015 07:22:46 11/04/19 16 11/05/2015 CMP, serum or plasm a potassium, serum 4.5 mmol/ L 3.5-5. 2 Not Available [facility] ([facility]) [address] [place], [address], 11/05/2015 07:22:46 11/04/19 16 11/05/2015 CMP, serum or plasm a chloride, serum 102 mmol/ L 97-108 Not Available [facility] ([facility]) [address] [facility] [place], [address], 11/05/2015 07:22:46 11/04/19 16 11/05/2015 CMP, serum or plasm a carbon dioxide, total 25 mmol/ L 18-29 Not Available [facility] ([facility]) [address] [place], [address], 11/05/2015 07:22:46 11/04/19 16 11/05/2015 CMP, serum or plasm a calcium, serum 9.9 mg/dL 8.7-10 .2 Not Available [facility] ([facility]) [address] [place], [address], 11/05/2015 07:22:46 11/04/1911/05/2015 CMP, serum or plasm a protein, total, serum 7.4 g/dL 6.0-8. 5 Not Available [facility] ([facility]) [address] [place], [address], 11/05/2015 07:22:46 11/04/19 16 11/05/2015 CMP, serum or plasm a albumin, serum 4.6 g/dL 3.5-5. 5 Not Available [facility] ([facility]) [address] [place], [address], 11/05/2015 07:22:46 11/04/1911/05/2015 CMP, serum or plasm a globulin, total 2.8 g/dL 1.5-4. 5 Not Available [facility] ([facility]) [address] [place], [address], 11/05/2015 07:22:46 11/04/1911/05/2015 CMP, serum or plasm a A/G ratio 1.6 1.1-2. 5 Not Available [facility] ([facility]) [address] [place], [address], 11/05/2015 07:22:46 11/04/19 16 11/05/2015 CMP, serum or plasm a bilirubin, total 0.3 mg/dL 0.0-1. 2 Not Available [facility] ([facility]) [address] [place], [address], 11/05/2015 07:22:46 11/04/19 16 11/05/2015 CMP, serum or plasm a alkaline phosphatase, S 84 IU/L 39-117 Not Available [facility] ([facility]) [address] [place], [address], 11/05/2015 07:22:46 11/04/19 16 11/05/2015 CMP, serum or plasm a AST (SGOT) 24 IU/L 0-40 Not Available [facility] ([facility]) [address] [place], [address], 11/05/2015 07:22:46 11/04/19 16 11/05/2015 CMP, serum or plasm a ALT (SGPT) 28 IU/L 0-32 Not Available [facility] ([facility]) [address] [place], [address], 11/05/2015 07:22:46 11/04/19 16 11/05/2015 HbA1c (hemo globi n A1c), blood hemoglobin A1C 5.5 % 4.8-5. 6 PRE-D IABET ES: 5.7 - 6.4 DIABE SHON: >6.4 GLYCE HARJINDER CONTR OL FOR ADULT S WITH DIABE SHON: <7.0 Not Available [facility] ([facility]) [address] [place], [address], 11/05/2015 07:22:47 11/04/19 16 11/05/2015 FSH (foll icle- stimu latin g hormo ne), serum FSH 102.7 mIU/m L FOLLI CULAR PHASE 3.5 - 12.5 OVULA TION PHASE 4.7 - 21.5 LUTEA L PHASE 1.7 - 7.7 POSTM ENOPA USAL 25.8 - 134.8 Not Available [facility] ([facility]) [address] [facility], [place], [address], 11/05/2015 07:22:47 11/04/19 16 11/05/2015 estra diol, serum estradiol 9.1 pg/mL ADULT FEMAL E: FOLLI CULAR PHASE 12.5 - 166.0 OVULA TION PHASE 85.8 - 498.0 LUTEA L PHASE 43.8 - 211.0 POSTM ENOPA USAL <6.0 - 54.7 PREGN TINY 1ST TRIME STER 215.0 - >4300 .0 GIRLS (1-10 YEARS ) 6.0 - 27.0 FREDY ECLIA METHO DOLOG Y Not Available [facility] ([facility]) [address] [facility], [place], [address], 11/05/2015 07:22:48 11/04/19 16 11/05/2015 proge stero ne, serum progesterone 0.3 NG/mL FOLLI CULAR PHASE 0.2 - 1.5 LUTEA L PHASE 1.7 - 27.0 OVULA TION PHASE 0.8 - 3.0 PREGN ANT FIRST TRIME STER 8.8 - 48.6 SECON D TRIME STER 12.4 - 75.8 THIRD TRIME STER 58.5 - 222.3 POSTM ENOPA USAL 0.1 - 0.8 Not Available [facility] ([facility]) [address] [facility], [place], [address], 11/05/2015 07:22:49 11/04/19 16 11/06/2015 cultu re, urine urine culture, routine FINAL REPORT Not Available [facility] ([facility]) [address] [facility], [place], [address], 11/06/2015 06:12:59 11/04/19 16 11/06/2015 cultu re, urine result 1 FORD Gambino MIXED UROGE NITAL CRISTI 10,00 0-25, 000 COLON Y FORMI NG UNITS PER ML Not Available [facility] ([facility]) [address] [place], [address], 11/06/2015 06:12:59 11/04/19 16 11/05/2015 pap, IG + HPV, cervi alon diagnosis: FORD VALADEZ FOR INTRA EPITH ELIAL LESIO N AND MALADRIEL EZIO . Not Available [facility] ([facility]) [address] [place], [address], 11/07/2015 16:41:55 11/04/19 16 11/05/2015 pap, IG + HPV, cervi alon specimen adequacy: FORD Gambino SATIS FACTO RY FOR EVALU ATION . ENDOC ERVIC AL AND/O R SQUAM OUS METAP LASTI C CELLS (ENDO CERVI ALON COMPO NENT) ARE PRESE NT. Not Available [facility] ([facility]) [address] [place], [address], 11/07/2015 16:41:55 11/04/19 16 11/05/2015 pap, IG + HPV, cervi alon clinician provided ICD10: FORD Gambino Z01.4 19 Not Available [facility] ([facility]) [address] [place], [address], 11/07/2015 16:41:55 11/04/19 16 11/05/2015 pap, IG + HPV, cervi alon performed by: FORD GIVENS , CYTOT KEYANA Gambino (ASCP ) Not Available [facility] ([facility]) [address] [place], [address], 11/07/2015 16:41:55 11/04/19 16 11/05/2015 pap, IG + HPV, cervi alon . . Not Available [facility] ([facility]) [address] [place], [address], 11/07/2015 16:41:55 11/04/19 16 11/05/2015 pap, IG + HPV, cervi alon note: COMMEN T THE PAP SMEAR IS A SCREE LORRAINE TEST DESIG NELLY TO AID IN THE DETEC TION OF DAMASO LIGNA NT AND MALIG NANT CONDI TIONS OF THE UTERI NE CERVI X. IT IS NOT A DIAGN OSTIC PROCE DURE AND SHOUL D NOT BE USED THE SOLE MEANS OF DETEC TING CERVI ALON CANCE R. BOTH FALSE -POSI TIVE AND FALSE -NEGA TIVE REPOR TS DO OCCUR . Not Available [facility] ([facility]) [address] [place], [address], 11/07/2015 16:41:55 11/04/19 16 11/05/2015 pap, IG + HPV, cervi alon test methodology: COMMEN T THIS LIQUI D BASED THINP REP(R ) PAP TEST WAS SCREE NELLY WITH THE USE OF AN IMAGE GUIDE Diana Umana Not Available [facility] ([facility]) [address] [facility], [place], [address], 11/07/2015 16:41:55 11/04/19 16 11/07/2015 pap, IG + HPV, cervi alon HPV aptima NEGATI VE negati ve THIS TEST DETEC TS FOURT EEN HIGH- RISK HPV TYPES (16/1 8/31/ 33/35 /39/4 5/ 51/52 /56/5 8/59/ 66/68 ) WITHO UT DIFFE RENTI ATION . Not Available [facility] ([facility]) [address] [place], [address], 11/07/2015 16:41:55 11/04/19 16 11/06/2015 bacte rial vagin osis + vagin itis panel , vagin al trich vag by MANJIT NEGATI VE negati ve Not Available [facility] ([facility]) [address] [place], [address], 11/08/2015 06:11:53 11/04/19 16 11/07/2015 bacte rial vagin osis + vagin itis panel , vagin al atopobium vaginae LOW - 0 score Not Available [facility] ([facility]) [address] [place], [address], 11/08/2015 06:11:53 11/04/19 16 11/07/2015 bacte rial vagin osis + vagin itis panel , vagin al bvab 2 LOW - 0 score Not Available [facility] ([facility]) [address] [place], [address], 11/08/2015 06:11:53 11/04/19 16 11/07/2015 bacte rial vagin osis + vagin itis panel , vagin al megasphaera 1 LOW - 0 score CALCU LATE TOTAL SCORE BY MARGARET Denis THE 3 INDIV IDUAL BACTE RIAL VAGIN OSIS (BV) MARKE R SCORE S TOGET HER. TOTAL SCORE IS INTER PRETE D FOLLO WS: TOTAL SCORE 0-1: INDIC ATES THE ABSEN CE OF BV. TOTAL SCORE 2: INDET ERMIN ATE FOR BV. ADDIT IONAL CLINI ALON DATA SHOUL D BE EVALU ATED TO ESTAB JACINTO A DIAGN OSIS. TOTAL SCORE 3-6: INDIC ATES THE PRESE NCE OF BV. THIS TEST WAS DEVEL OPED AND ITS PERFO RMANC E DANIELA CTERI STICS DETER MINED BY [facility]. IT HAS NOT BEEN CLEAR ED OR APPRO KARSON BY THE FOOD AND DRUG ADMIN ISTRA TION. THE FDA HAS DETER MINED THAT SUCH CLEAR ANCE OR APPRO GABRIELLA IS NOT NECES DARÍO. Not Available [facility] ([facility]) [address] [facility], [place], [address], 11/08/2015 06:11:53 11/04/19 16 11/07/2015 bacte rial vagin osis + vagin itis panel , vagin al kathy albicans, MANJIT NEGATI VE negati ve Not Available [facility] ([facility]) [address] [facility], [place], [address], 11/08/2015 06:11:53 11/04/19 16 11/07/2015 bacte rial vagin osis + vagin itis panel , vagin al kathy glabrata, MANJIT POSITI VE negati ve abnormal THIS TEST WAS DEVEL OPED AND ITS PERFO RMANC E DANIELA CTERI STICS DETER MINED BY [facility]. IT HAS NOT BEEN CLEAR ED OR APPRO KARSON BY THE FOOD AND DRUG ADMIN ISTRA TION. THE FDA HAS DETER MINED THAT SUCH CLEAR ANCE OR APPRO GABRIELLA IS NOT NECES DARÍO. PUBLI SHED DATA DEMON STRAT E THAT UP TO 65% OF TJ DA GLABR ROBI IDENT IFIED IN CASES OF VAGIN AL TJ DIASI S HAVE DECRE ASED SUSCE PTIBI LITY TO FLUCO NAZOL E. Not Available [facility] ([facility]) [address] [place], [address], 11/08/2015 06:11:53 11/04/19 16 11/07/2015 bacte rial vagin osis + vagin itis panel , vagin al chlamydia trachomatis, MANJIT NEGATI VE negati ve Not Available [facility] ([facility]) [address] [place], [address], 11/08/2015 06:11:53 11/04/19 16 11/07/2015 bacte rial vagin osis + vagin itis panel , vagin al neisseria gonorrhoeae, MANJIT NEGATI VE negati ve Not Available [facility] ([facility]) [address] [place], [address], 11/08/2015 06:11:53 11/04/19 16 11/07/2015 STI panel kathy albicans, MANJIT TNP DUPLI CLAUDIA PROCE DURE ORDER ED. Not Available [facility] ([facility]) [address] [place], [address], 11/08/2015 06:11:54 11/04/19 16 11/07/2015 STI panel kathy glabrata, MANJIT TNP DUPLI CLAUDIA PROCE DURE ORDER ED. Not Available [facility] ([facility]) [address] [facility], [place], [address], 11/08/2015 06:11:54 11/04/19 16 11/07/2015 STI panel kathy tropicalis, MANJIT NEGATI VE negati ve Not Available [facility] ([facility]) [address] [place], [address], 11/08/2015 06:11:54 11/04/19 16 11/07/2015 STI panel kathy parapsilosis , MANJIT NEGATI VE negati ve Not Available [facility] ([facility]) [address] [facility], [place], [address], 11/08/2015 06:11:54 11/04/19 16 11/07/2015 STI panel kathy lusitaniae, MANJIT NEGATI VE negati ve Not Available [facility] ([facility]) [address] [place], [address], 11/08/2015 06:11:54 11/04/19 16 11/07/2015 STI panel kathy krusei, MANJIT NEGATI VE negati ve THIS TEST WAS ESTER MENA AND ITS PERFO RMANC E DANIELA CTERI STICS DETER MINED BY [facility]. IT HAS NOT BEEN CLEAR ED OR APPRO KARSON BY THE FOOD AND DRUG ADMIN ISTRA TION. THE FDA HAS DETER MINED THAT SUCH CLEAR ANCE OR APPRO GABRIELLA IS NOT NECES DARÍO. Not Available [facility] ([facility]) [address] [facility], [place], [address], 11/08/2015 06:11:54 11/04/19 16 11/06/2015 HSV (1+2) DNA, qual, PCR, unspe cifie d speci men hsv 1 MANJIT NEGATI VE negati ve Not Available [facility] ([facility]) [address] [place], [address], 11/08/2015 06:11:54 11/04/19 16 11/06/2015 HSV (1+2) DNA, qual, PCR, unspe cifie d speci men hsv 2 MANJIT NEGATI VE negati ve Not Available [facility] ([facility]) [address] [place], [address], 11/08/2015 06:11:54 12/04/19 16 12/04/2015 yfn (risk of ovari an malig ezio algor ithm score ), serum (lizzie enopa usal) premenopausa l interp: low COMMEN T IF THE PATIE NT IS PREME NOPAU BERNADETTE, THEN THE PREME NOPAU BERNADETTE YFN SCORE OF LESS THAN 1.31 IS CONSI STENT WITH A LOW LIKEL IHOOD OF FINDI NG A MALIG EZIO ON SURGE RY. Not Available [facility] ([facility]) [address] [place], [address], 12/06/2015 16:25:24 12/04/19 16 12/04/2015 yfn (risk of ovari an malig ezio algor ithm score ), serum (lizzie enopa usal) postmenopaus al interp: low COMMEN T IF THE PATIE NT IS POSTM ENOPA USAL, THEN THE POSTM ENOPA USAL YFN SCORE OF LESS THAN 2.77 IS CONSI STENT WITH A LOW LIKEL IHOOD OF FINDI NG A MALIG EZIO ON SURGE RY. Not Available [facility] ([facility]) [address] [place], [address], 12/06/2015 16:25:24 12/04/19 16 12/04/2015 yfn (risk of ovari an malig ezio algor ithm score ), serum (lizzie enopa usal) comment: COMMEN T THE RISK FOR OVARI AN MALIG EZIO ALGOR ITHM (YFN ) TEST IS INTEN DED TO AID IN ASSES SING WHETH ER A PREME NOPAU BERNADETTE OR POSTM ENOPA USAL WOMAN WHO PRESE NTS WITH AN OVARI AN ADNEX AL MASS IS AT HIGH OR LOW LIKEL IHOOD OF FINDI NG MALIG EZIO ON SURGE RY. YFN IS INDIC ATED FOR WOMEN WHO MEET THE FOLLO WING CRITE SAI: OVER AGE 18; OVARI AN ADNEX AL MASS PRESE NT FOR WHICH SURGE RY IS PLANN ED, AND NOT YET REFER RED TO AN ONCOL OGIST . YFN MUST BE INTER PRETE D IN CONJU NCTIO N WITH AN INDEP ENDEN T CLINI ALON AND RADIO LOGIC AL ASSES SMENT . THE TEST IS NOT INTEN DED A SCREE LORRAINE OR STAND -GERALDINE E DIAGN OSTIC ASSAY . Not Available [facility] ([facility]) [address] [place], [address], 12/06/2015 16:25:24 12/04/19 16 12/06/2015 yfn (risk of ovari an malig ezio algor ithm score ), serum (lizzie enopa usal) cancer antigen 125 (Ca125) 16.6 U/mL 0.0-35 .0 ABBOT T CMIA METHO DOLOG Y Not Available [facility] ([facility]) [address] [facility], [place], [address], 12/06/2015 16:25:24 12/04/19 16 12/06/2015 yfn (risk of ovari an malig ezio algor ithm score ), serum (lizzie enopa usal) he4 42 pmol/ L 0-150 FUJIR EBIO EIA METHO DOLOG Y CA125 VALUE S OBTAI NELLY WITH DIFFE RENT ASSAY METHO DS OR KITS CANNO T BE USED INTER LARSON EABLY . Not Available [facility] ([facility]) [address] [facility], [place], [address], 12/06/2015 16:25:24 12/04/19 16 12/06/2015 yfn (risk of ovari an malig ezio algor ithm score ), serum (lizzie enopa usal) premenopausa l yfn 0.51 see below Not Available [facility] ([facility]) [address] [place], [address], 12/06/2015 16:25:24 12/04/19 16 12/06/2015 yfn (risk of ovari an malig ezio algor ithm score ), serum (lizzie enopa usal) postmenopaus al yfn 1.05 see below Not Available [facility] ([facility]) [address] [facility], [place], [address], 12/06/2015 16:25:24 05/13/20 16 05/15/2016 bacte rial vagin osis + vagin itis panel , vagin al trich vag by MANJIT NEGATI VE negati ve Not Available [facility] ([facility]) [address] [facility], [place], [address], 05/17/2016 06:04:50 05/13/20 16 05/15/2016 bacte rial vagin osis + vagin itis panel , vagin al chlamydia trachomatis, MANJIT NEGATI VE negati ve Not Available [facility] ([facility]) [address] [facility], [place], [address], 05/17/2016 06:04:50 05/13/20 16 05/15/2016 bacte rial vagin osis + vagin itis panel , vagin al neisseria gonorrhoeae, MANJIT NEGATI VE negati ve Not Available [facility] ([facility]) [address] [place], [address], 05/17/2016 06:04:50 05/13/20 16 05/16/2016 bacte rial vagin osis + vagin itis panel , vagin al kathy albicans, MANJIT NEGATI VE negati ve Not Available [facility] ([facility]) [address] [place], [address], 05/17/2016 06:04:50 05/13/20 16 05/16/2016 bacte rial vagin osis + vagin itis panel , vagin al kathy glabrata, MANJIT NEGATI VE negati ve THIS TEST WAS ESTER MENA AND ITS PERFO RMANC E DANIELA CTERI STICS DETER MINED BY [facility]. IT HAS NOT BEEN CLEAR ED OR APPRO KARSON BY THE FOOD AND DRUG ADMIN ISTRA TION. THE FDA HAS DETER MINED THAT SUCH CLEAR ANCE OR APPRO GABRIELLA IS NOT NECES DARÍO. Not Available [facility] ([facility]) [address] [facility], [place], [address], 05/17/2016 06:04:50 05/13/20 16 05/17/2016 bacte rial vagin osis + vagin itis panel , vagin al atopobium vaginae LOW - 0 score Not Available [facility] ([facility]) [address] [facility], [place], [address], 05/17/2016 06:04:50 05/13/20 16 05/17/2016 bacte rial vagin osis + vagin itis panel , vagin al bvab 2 LOW - 0 score Not Available [facility] ([facility]) [address] [facility], [place], [address], 05/17/2016 06:04:50 05/13/20 16 05/17/2016 bacte rial vagin osis + vagin itis panel , vagin al megasphaera 1 LOW - 0 score CALCU LATE TOTAL SCORE BY MARGARET Denis THE 3 INDIV IDUAL BACTE RIAL VAGIN OSIS (BV) MARKE R SCORE S TOGET HER. TOTAL SCORE IS INTER PRETE D FOLLO WS: TOTAL SCORE 0-1: INDIC ATES THE ABSEN CE OF BV. TOTAL SCORE 2: INDET ERMIN ATE FOR BV. ADDIT IONAL CLINI ALON DATA SHOUL D BE EVALU ATED TO ESTAB JACINTO A DIAGN OSIS. TOTAL SCORE 3-6: INDIC ATES THE PRESE NCE OF BV. THIS TEST WAS DEVEL OPED AND ITS PERFO RMANC E DANIELA CTERI STICS DETER MINED BY [facility]. IT HAS NOT BEEN CLEAR ED OR APPRO KARSON BY THE FOOD AND DRUG ADMIN ISTRA TION. THE FDA HAS DETER MINED THAT SUCH CLEAR ANCE OR APPRO GABRIELLA IS NOT NECES DARÍO. Not Available [facility] ([facility]) [address] [facility], [place], [address], 05/17/2016 06:04:50 12/13/19 15 12/12/2014 ultra sound , pelvi c trans abdom inal No observ ation record ed. [facility] (Imaging) [address] [place], [address], 12/20/2014 19:01:30 09/04/20 15 09/02/2015 MAMMO , diagn ostic , digit al, bilat eral No observ ation record ed. [email or web address] [address], [place], [address], 05/13/2016 13:15:22 12/03/19 16 11/04/2015 CT, abdom en + pelvi s, w/ contr ast No observ ation record ed. [address] [facility] [address] [facility], [place], [address], 05/13/2016 16:18:12 12/06/19 16 12/06/2015 ultra sound , pelvi c trans abdom inal & trans vagin al No observ ation record ed. [address] ([facility]) [address] [place], [address], 05/13/2016 16:18:12 05/15/20 16 05/15/2016 US, trans vagin al No observ ation record ed. [email or web address] [place] [address] [address] [place], [address], 06/02/2016 09:44:41 Result Notes None recorded. Problems Name Problem SNOMED Code Status Onset Date Resolution Date Notes Provider Name and Address Organization Details Recorded Time Endometriosi s of uterus 99926376 Active Cosme Gloria null, [place] - [facility] 6 13:25:11 Menopausal syndrome 007698692 Active Valerie Quiroz MD Attn: Accounting, [address], [place], [address], [facility] - [facility] 6 18:44:51 Dermatophyto sis of the body Active Valerie Quiroz MD Attn: Accounting, [address], [place], [address] [place] [address], [place] - [facility] 6 18:44:51 Candidiasis 62098132 Active Valerie Quiroz MD Attn: Accounting, [address], [place], [address] [place] [address], [facility] - [facility] 6 18:44:51 Headache 99721452 Active Valerie Quiroz MD Attn: Accounting, [address], [place], [address] [place] [address], [place] - [facility] 6 18:44:51 Irritable bowel syndrome 89582445 Active Valerie Quiroz MD Attn: Accounting, [address], [place], [address] [place] [address], [facility] - [facility] 6 18:44:51 Left sided abdominal pain 393570139 Active Valerie Quiroz MD Attn: Accounting, [address], [place], [address] [place] [address], [facility] - [facility] 6 18:44:51 Chronic pelvic pain of female 404805288 Active Natanael Valentino null, [place] - [facility] 6 10:54:30 Vaginitis 42045159 Active Valerie Quiroz MD Attn: Accounting, [address], [place], [address] [place] [address], [place] [facility] 6 18:44:51 Uterine leiomyoma 50577344 Active Cosme Ju[place] [facility] 6 13:25:11 Endometrium thickened 103775271 Active Cosme [place] [facility] 13:25:11 Problem Notes None recorded. Procedures Surgical History Date Name Laterality Status Provider Name and Address Organization Details Recorded Time 11/04/19 16 Date of Last Pap Smear completed Laure Pedraza [place] - [facility] 05/13/2016 15:06:51 09/13/19 09 Cholecystectomy completed Brenda Van [place] - [facility] 10/30/2014 10:26:54 09/13/19 09 Dilation and Curettage completed Brenda Van MA [place] - [facility] 12/10/2014 12:17:22 12/21/19 08 Caesarean Section completed Laure Pedraza MA [facility] 12/20/2014 15:28:58 09/13/19 03 Orthopedic Surgery completed Brenda Van MA [facility] 12/10/2014 12:17:22 09/13/19 03 Breast Surgery completed Brenda Van MA [facility] 12/10/2014 12:23:51 Laparoscopy completed Brenda Van MA [facility] 12/10/2014 12:17:22 Imaging Results Imaging Date Name Status LastModified by Organization Details LastModified Time 12/12/2014 ultrasound, pelvic transabdominal completed [facility] (Imaging) [address] [place], [address], 12/20/2014 19:01:30 09/02/2015 MAMMO, diagnostic, digital, bilateral completed [email or web address] [facility] [address], [address], 05/13/2016 13:15:22 11/04/2015 CT, abdomen + pelvis, w/ contrast completed [address] [facility] [address] , [place], [address], 05/13/2016 16:18:12 12/06/2015 ultrasound, pelvic transabdominal & transvaginal completed [address] ([facility]) [address] [place], [address], 05/13/2016 16:18:12 05/15/2016 US, transvaginal completed [address] [place], [address], 06/02/2016 09:44:41 Procedure Notes None recorded. Medical Equipment None Reported. Allergies Allergen ID Allergen Name Allergen Category Reaction Reaction Severity Criticality Documentation Date Start Date Code Code System Note Provider Name and Address Organization Details Recorded Time 27304 codeine medicatio n itching moderate Not available 10/30/2014 2670 RxNorm rash Not Available Not Available Not Available Medications Name Sig Start Date Stop Date Status Note LastModified by Organization Details LastModified Time ibuprofen 800 mg tablet Take 1 tablet 3 times a day by oral route with meals. active Not Available Not Available No t Available fluconazole 150 mg tablet Take 1 tablet every day by oral route as directed for 1 day. active Not Available Not Available N ot Available ampicillin 500 mg capsule Take 1 capsule every 8 hours by oral route for 7 days. 2014 active Not Available Not Available Not Avai lable hydrocodone 5 mg-acetamin ophen 325 mg tablet Take 1 tablet every 6 hours by oral route. active Not Available Not Available No t Available phenazopyri dine 200 mg tablet active Not Available Not Available Not Available terconazole 0.8 % vaginal cream Insert 1 applicator ful every day by vaginal route for 3 days. active Not Available Not Available No t Available metronidazo le 500 mg tablet active Not Available Not Available Not Available ciprofloxac in 500 mg tablet active Not Available Not Available Not Available sulfamethox azole 800 mg-trimetho prim 160 mg tablet active Not Available Not Available Not Available nystatin 100,000 unit/gram topical cream APPLY TO THE AFFECTED AREA(S) BY TOPICAL ROUTE 2 TIMES PER DAY SKIN LESIONS 2014 active Not Available Not Available Not Avai lable nystatin-tr iamcinolone 100,000 unit/g-0.1 % topical cream APPLY TO THE AFFECTED AREA(S) BY TOPICAL ROUTE 2 TIMES PER DAY IN THEMORNING AND EVENING 2015 active Not Available Not Available Not Avai lable omeprazole 20 mg capsule,del ayed release active Not Available Not Available Not Available levofloxaci n 500 mg tablet active Not Available Not Available Not Available amoxicillin 875 mg-potassiu m clavulanate 125 mg tablet active Not Available Not Available Not Available nitrofurant oin monohydrate /macrocryst als 100 mg capsule active Not Available Not Available Not Available magnesium sulfate active OTC Not Available Not Available Not Available multivitami n active OTC Not Available Not Available Not Available Probiotic active OTC garden of life Not Available Not Available Not Available Suprep Bowel Prep Kit 17.5 gram-3.13 gram-1.6 gram oral solution active Not Available Not Available Not Available Vitals Date Recorded Body height Body weight Body mass index (BMI) Systolic blood pressure Diastolic blood pressure Provider Name and Address Organization Details Last Updated DateTime 11/04/2015 177.8 cm 72586.28 926 g 28.4 kg/m2 130 mm[Hg] 92 mm[Hg] Rebecca Slater MA [facility] 6 15:13:22 Date Recorded Body weight Body height Body mass index (BMI) Systolic blood pressure Diastolic blood pressure Provider Name and Address Organization Details Last Updated DateTime 05/13/2016 52462.88 163 g 177.8 cm 28.6 kg/m2 128 mm[Hg] 86 mm[Hg] Laure Pedraza MA [facility] 6 15:05:42 Date Recorded Body height Body mass index (BMI) Body weight Systolic blood pressure Diastolic blood pressure Provider Name and Address Organization Details Last Updated DateTime 06/03/2016 177.8 cm 28.7 kg/m2 61619.47 4 g 118 mm[Hg] 82 mm[Hg] Rebecca Slater MA [facility] 6 10:36:57 Date Recorded Body height Body weight Body mass index (BMI) Systolic blood pressure Diastolic blood pressure Provider Name and Address Organization Details Last Updated DateTime 06/10/2016 177.8 cm 19967.88 163 g 28.6 kg/m2 130 mm[Hg] 92 mm[Hg] Rebecca Slater MA [facility] 6 12:34:41 Date Recorded Body height Body mass index (BMI) Body weight Systolic blood pressure Diastolic blood pressure Provider Name and Address Organization Details Last Updated DateTime 12/20/2014 177.8 cm 28.7 kg/m2 56701.47 4 g 124 mm[Hg] 88 mm[Hg] Laure Pedraza MA [facility] 5 15:31:11 Social History Question Answer Notes LastModified by Organizat ion Details LastModified Time Tobacco Smoking Status Never Smoker Brenda Van MA [facility], [facility] 10/30/2014 10:26:55 Do You Have An Advance Directive? No [email or web address] Information not available 10/30/2014 What Is Your Level Of Alcohol Consumption? None [email or web address] Information not available 10/30/2014 Is Blood Transfusion Acceptable In An Emergency? Yes [email or web address] Information not available 10/30/2014 What Is Your Level Of Caffeine Consumption? None [email or web address] Information not available 10/30/2014 How Much Tobacco Do You Chew? None Information not available 10/30/2014 Are You Currently Employed? No [email or web address] Information not available 10/30/2014 What Type Of Diet Are You Following? 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 With Others [email or web address] Information not available 10/30/2014 How Many Children Do You Have? 1 [email or web address] Information not available 10/30/2014 Performs Monthly Self-breast Exam? Yes [email or web address] Information no t available 10/30/2014 Do You Use Protection During Sex? Usually [email or web address] Information not available 10/30/2014 What Is Your Relationship Status? Information not available 10/30/2014 Seat Belts Used Routinely Yes [email or web address] Information not available 10/30/2014 Are You Sexually Active? Yes Information not available 10/30/2014 General Stress Level High [email or web address] Information not available 10/30/2014 Do You Use Sunscreen Routinely? Yes Information not available 10/30/2014 Sex: Unknown Functional Status Question Answer Note LastModified by Organizat ion Details LastModified Time What is your exercise level? Occasional [email or web address] Information not available 10/30/2014 Mental Status None recorded. Family History Relationship Description Onset Age of this Age Resolved Age Notes LastModified by Organization Details LastModified Time Mother Malignant tumor of breast 75 Not available 2015 10:41:47 Medical History Condition Response Coronary Artery Disease N Kidney Cyst N Blood Diseases N Hyperthyroidism N Blood disorders N Blood Transfusion N MRSA N Emphysema N Depression N COPD N Blood Clots N Pneumonia N Premature N Peripheral Arterial Disease N Edema N TIA N Headaches/Migraines N Anxiety Disorder N Obesity N Polyps N Infertility N Acid Reflux (GERD) N Hematuria N Stroke N Neck Injury N Polio N Hospital Admission other than Y Neurologic Disorder N Other Sleep Disorders N Rheumatoid Arthritis N Fibromyalgia N Abdominal Aortic Aneurysm Repair N Kidney Disease N Heart Conditions N Heart Disease/Heart Problems N Hospitalizations Y Brain Tumors N Acne N Skin Problems N Eating Disorder N Meningitis N Constipation N Tuberculosis N Cerebral Palsy N Myocardial Infarction N Asthma N Substance Abuse N Peripheral Vascular Disease N Vertigo N Sleep Disorder N Cirrhosis N Pulmonary Embolism N Chicken Pox N Hematologic Disease N Flomax Use Past or Present N Anxiety/Depression N Thyroid Disease N Colon Cancer N Lung Disease N Glaucoma N Developmental or Behavioral Disorders N Bipolar N Pacemaker N Diverticulitis/Diverticulosis Y Orthopedic Problems N Anesthesia Complications N Orthotics N Head Injury/Concussion N Congenital Anomalies N Caicedo Bite N Chronic Kidney Disease N Endometriosis N Liver Disease N Schizophrenia N Dialysis N Speech Delay N Chronic Obstructive Pulmonary Disease N Parkinson's Disease N Thyroid Problems N GI Problems Y Developmental Delay N Anemia N Multiple Sclerosis N Immune System Disorder N Colon Polyps N Heart Attack (DE) N Diabetes N Cardiomyopathy N Blood Transfusions N Heart Problems/Murmur N Eye Trauma N Congestive Heart Failure (CHF) N Valvular Heart Disease N Hyperlipidemia N Double Vision N Abuse/Domestic Violence N Hepatitis B N Lupus N Epilepsy/Seizures N Reflux/GERD N Aneurysm N Heart Disease N Bronchitis N Pre-Eclampsia N Hypertension N Heart Failure N Other N Gout N High Blood Pressure N Atrial Fibrillation N Kidney Stones N Head Trauma/Injury N Congenital Heart Disease N Spine Problems N Gastrointestinal Disease N Lung Mass N Sinusitis N Obstructive Sleep Apnea N Muscle, Joint, or Bone Problems N Autoimmune disease N Vision or Eye Problems N Arthritis N Blood Clot N Cancer N Seasonal allergies N Leg or Foot Ulcers N Raynaud's Disease N Aortic Aneurysm N Arrhythmia N Headaches Y Heart Problems N Ambloypia N Ear or Hearing Problems N Hyperparathyroidism N Migraines Y Artificial Joints N Kidney or Bladder Problems N NSAID Use N Encephalitis N PTSD N Ulcers N Prostate Hypertrophy N Bleeding Disorder N AIDS/HIV N Urinary Tract Infection N Back Problems N Allergies N Atrial Flutter N GERD/Reflux Y Hepatitis N Autism Spectrum Disorder (ASD) N Breast Cancer Y Hernia N Hypothyroidism N Breast Problem N Genitourinary Disease N Deep Vein Thrombosis N Varicose Veins N Cystic Fibrosis N Hearing Loss N Developmental Problems N Carotid Disease N Vitamin D Deficiency N ADHD N Bladder or Kidney Problems N High Cholesterol N [place] N Valvular Abnormalities N Psychiatric/Mental Health Condition N Organ Transplant N Foot Deformity N Allergies/Hayfever N Dyslipidemia N Hyponatremia N Diabetic Eye Disease N Osteoporosis/Osteopenia N Back Pain N Proteinuria N Mental Illness N Neurological Problems N Ovarian Cancer N Bedwetting N Seizures/Epilepsy N Kidney Failure N Ocular trauma N Diverticulitis N Dementia N Sleep Apnea N Mental Problems N Warfarin Management N Osteoporosis N Gynecological History Statement/Question Response Flow Moderate STIs/STDs N HPV Vaccine N Age at Menarche 12 Current Control Method None Age at First Child 41 Sexually Active? Y Menses Monthly N Date of Last Pap Smear 11/04/2015 Sexual Problems? Y LMP Approximate Desired Control Method None Obstetrics History GPAL:G 1 P 1 0 0 1 Type Value Multiple Births 0 Full Term 1 Induced 0 Spontaneous 0 Premature 0 Living 1 Ectopics 0 Total 1 Past Encounters Encounter ID Performer Location Encounter Start Date Encounter Closed Date Diagnosis/Indication Diagnosis SNOMED-CT Code Diagnosis ICD10 Code Diagnosis Note [id number] Judi Hill (PROOF INSPECTOR) [address] [place] [address] [phone] 10/30/2014 09:49:37 10/30/2014 10:56:31 Gynecologic examination [id number] 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 [id number] LEONIE Rueda (PROOF INSPECTOR) [address] [place] [address] [phone] 12/10/2014 11:20:55 12/10/2014 13:01:08 Gynecologic examination 35097435 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 673771592 Streptococcus carrier 545140320 Endometrio sis of uterus [id number] DANIELA Carrillo (PROOF INSPECTOR) [address] [place] [address] [phone] 12/20/2014 14:54:18 12/23/2014 09:31:47 Streptococcus carrier [id number] Menopausal syndrome 578265151 Dermatophy tosis of the body 051282358 Candidiasis 28165189 [id number] Cosme Armasalivia Hill (PROOF INSPECTOR) [address] [place] [address] [phone] 11/04/2015 14:31:13 11/04/2015 17:25:17 Gynecologic examination 11162849 Z01.419 Irritable bowel syndrome 30217338 K58.9 Menopausal syndrome 1237 06819 N95.9 Colitis 54796903 K52.9 [id number] Natanael Hill (PROOF INSPECTOR) [address] [place] [address] [id number] 05/13/2016 13:52:53 05/14/2016 10:32:25 Candidiasis 70396832 B37.9 Chronic pe lvic pain of female 009537576 R10.2 Vaginitis 94652847 N76.0 [id number] MD Liz Rey (PROOF INSPECTOR) [address] [place] [address] [phone] 06/03/2016 09:47:51 06/05/2016 11:46:20 Uterine leiomyoma 45356574 D25.9 Endometrium thickened 44 4926707 R93.8 [id number] Kayleen Fishcece Hill (PROOF INSPECTOR) [address] [place] [address] [phone] 06/10/2016 11:13:23 06/11/2016 17:50:59 Endometrium thickened 078510106 R93.8 Chronic pe lvic pain of female 749169052 R10.2 Uterine leiomyoma 075445 05 D25.9 Health Concerns Section Related Observation LastModified by Organization Detai ls LastModified Time None Recorded Concern Status LastModified by Organization Details LastModified Time None Recorded Advance Directives Directive N: Payers Encounter Date Sequence Insurance Name Policy Number Policy Mohamud Covered Member ID Mohamud Member ID Guarantor Name 12/20/2014 1 [facility] Alana Clau [id number] Alanakaris Olguin 11/04/2015 1 [place] [id number] Catrachito Olguin Jr [id number] Alana Olguin 05/13/2016 1 [place] [id number] Catrachito Olguin Jr [id number] Alanakaris Olguin 06/03/2016 1 [place] [id number] Catrachito Olguin Jr [id number] Alanakaris Olguin 06/10/2016 1 [place] [id number] Catrachito Olguin Jr [id number] Alana Clau Notes Date Note Type Note Provider Name and Address Organization Details Recorded Time 11/04/2015 text/html Annual GYNReport ed bypatient.Menstrua l cycle:Normal menses Urinary symptoms:No hematuria;Stress incontinence Vulva:No genital lesion Vagina:Normal vaginal discharge Breast:No breast pain; No breast lump; No nipple discharge Sexual complaints:No sexual complaints; No pain during intercourse; Normal libido Menopausal Symptoms:No menopausal symptoms; Normal vaginal lubrication Psychological symptoms:No depression; No anxiety; No PMDD Preventive measures:Encourage self breast examination; Encourage regular exercise; Encourage no tobacco use; Encourage regular mammograms starting age 40; Followed with yearly pap smears Cosme blum, [facility] 11/04/2015 17:15:28 06/03/2016 text/html HERE FOR TEST RESULTS. She said she had an episode of post menopausal bleeding 2 years ago and endometrial biopsy was negative as per patient. Denies any bleeding since then Valerie Quiroz MD Attn: Accounting,[address] [place], [address], [facility] 06/03/2016 18:49:56 06/10/2016 text/html Presenting for consultation with Dr. Gloria, Re: endometrial thickening and pelvic pain. I am standing in for Dr. Gloria as he was called away for Emergency. Natanael Valentino viktoria, [facility] 06/11/2016 10:54:34 OBGyn Episode Ob Episode Information Episode Created Date Number of Fetuses Patient Bloodtype Patient rh Status Prepregnancy Weight lbs Domestic Partner Domestic Partner Phone Father Name Mental Health Practitioner Status 10/30/19 15 1 CLOSED Fetus Data First Name Last Name Admitted to NICU Weight (g) Sex Living Outcome Pediatric Complications Fetus ID Race Codes Race Delivery Type 3628.73 6 F Full Term [id number] Ole Calculation Initial Ole Date Initial Exam Date Initial Exam Provider Initial Ultrasound Date Last Menstrual Period Date Ultra Sound Weeks Gestation 0 Eighteen To Twenty Week Ole Update Ultra Sound Date Fundal Height At Umbil Quickening Date Ultra Sound Latest Weeks Gestation Final Ole Confirmed By Final Ole Confirmed Date Final Ole Date Ultra Sound Latest Days Gestation 0 0 Menstrual History Last Menstrual Date Menses Monthly On Bcp Conception Prior Menses Frequency Hcg Plus Date Menarche Onset Age Delivery Information Delivery Date Delivery Type Labor Anesthesia Weeks Gestation Incision Type Labor Labor Length Hrs Delivered By Post Complications Tubal Sterilization Discharge Date Comments 8 [facility] [place] Discharge Information Feeding Method Contraceptive Method Maternal HG B and HCT Levels
== END 2024-10-26 15:19 | disposition home or self-care (01) ==
PROVIDERS: PCP Physician Assistant; Visit Provider Orthopaedic Surgery
DX: M17.0 Bilateral primary osteoarthritis of knee (principal); M25.761 Osteophyte, right knee; M25.762 Osteophyte, left knee
CPT/HCPCS: 73562

== ENCOUNTER 2025-01-16 09:52 | Outpatient (CLI) | payer OTHER, SELFPAY ==
--- OUTSIDE RECORDS SUMMARY | 2025-01-16 10:43 | XMS_ITS | Referral Summary ---
Author Organization [facility] Address [address] [place] [address] Care Team Providers Care Heel Dipper Name Role Phone Loni Duong Primary Care Pr ovider Allergies Active Allergy Reactions Criticality Noted Date Comments Codeine Itching Low Medications cn-mgnlfgx-zko- iron fm-FA-vitK 18 mg iron-600 mcg-80 mcg tablet Take by mouth. Active cholecalciferol (VITAMIN D-3) 4,000 unit capsule Active magnesium gluconate 200 mg tabletIndicatio ns:hypomagnesem ia 200 mg. Active SACCHAROMYCES BOULARDII ORAL Take by mouth A ctive POTASSIUM ORAL Take 300 mg by mouth 2 (two) times a day Active cyclobenzaprine (FLEXERIL) 5 mg tablet 04/19/2020 Active Elmiron 100 mg capsule TAKE 2 CAPSULES BY MOUTH TWICE A DAY 05/23/2020 Active Active Problems Problem Noted Date Diagnosed Date History of colon polyps 05/23/2020 Overview (05/23/2020): Added automatically from request for surgery [id number] Encounter for follow-up surveillance of breast c ancer 04/23/2020 History of bilateral breast cancer 04/23/2020 Generalized abdominal pain 10/12/2019 Diverticulitis of large inte brian without perforation or abscess without bleeding 10/12/2019 Gastric nodule 10/12/2019 Epigastric pain 07/23/2019 Irritable bowel syndrome 11/01/2018 Social History Tobacco Use Types Packs/Day Years Used Date Smoking Tobacco: Never Smokeless Tobacco: Never Alcohol Use Standard Drinks/Week Comments No 0 (1 standard drink = 0.6 oz pur e alcohol) Comments No Sex and Gender Information Value Date Recorded Sex Assigned at Not on file Legal Sex Female 8:16 PM 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 Gender Identity Not on file Sexual Orientation Not on file Last Filed Vital Signs Vital Sign Reading Time Taken Comments Blood Pressure 128/76 06/13/2020 9:40 AM CDT Pulse 63 06/13/2020 9:40 AM CDT Temperature 36.2 C (97.2 F) 06/13/2020 9:40 AM CDT Respiratory Rate 14 06/13/2020 9:40 AM CDT Oxygen Saturation 96% 06/13/2020 9:40 AM CDT Inhaled Oxygen Concentration - - Weight 79.4 kg (175 lb) 06/13/2020 8:05 AM CDT Height 177.8 cm (5' 10 ) 06/13/2020 8:05 AM CDT Body Mass Index 25.11 06/13/2020 8:05 AM CDT Plan of Treatment Not on file Procedures Procedure Name Priority Date/Time Associated Diagnosis Comments DIAGNOSTIC MAMMOGRAM BILATERAL W CHETAN Schedule Routine, Read Routine (OP Routine) 10/05/2023 9:39 AM 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 Unspecified lump in axillary tail of the right breast COLONOSCOPY 06/13/2020 9:01 AM CDT from Last 3 Months or Most Recently Relevant to Health Maintenance Results * Diagnostic Mammogram Bilateral W Chetan (10/05/2023 9:39 AM 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) Anatomical Region Laterality Modality Breast Bilateral Mammography 10/05/2023 10:1 3 AM 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 Impressions 10/05/2023 10:37 AM 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 1. Stable postsurgical changes of bilateral breast conservation therapy. No suspicious abnormality in either breast. 2. No mammographic or sonographic correlate for area of clinical concern in right breast. Clinical follow-up is recommended. OVERALL FINAL ASSESSMENT: BI-RADS Category 2: Benign. RECOMMENDATION: 1. Annual screening mammography is recommended. 2. Clinical follow-up is recommended. Dictated by: Anahy Morales DO The radiology attending physician has personally reviewed this study, and had reviewed and/or edited this written report and agrees with it. Electronically signed by: Chantel Leo M.D. Narrative 10/05/2023 10:37 AM 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 EXAMINATION: BILATERAL DIGITAL DIAGNOSTIC MAMMOGRAM INCLUDING CAD AND BILATERAL DIGITAL BREAST TOMOSYNTHESIS; RIGHT BREAST SONOGRAM HISTORY: 58-year-old woman with bilateral breast cancer status post lumpectomy in 1999 presents with palpable abnormality in the upper outer right breast. COMPARISON: Multiple prior mammograms dating back to 08/29/2015. TECHNIQUE: Full field digital mammographic views of BOTH breasts were performed, including computer aided detection (CAD) and BILATERAL digital breast tomosynthesis (DBT). Directed ultrasound evaluation of the RIGHT breast was performed. BREAST PARENCHYMAL COMPOSITION: There are scattered areas of fibroglandular density. MAMMOGRAM FINDINGS: There are postsurgical changes of breast conservation therapy in the bilateral breasts. No suspicious abnormality at palpable area concern in the right breast as denoted by triangular skin marker. No suspicious mass, architectural distortion, or grouped calcifications in either breast. SONOGRAM FINDINGS: Targeted sonographic evaluation of palpable area concern in the right breast at 12:00, 11 cm from the nipple, showed normal fibroglandular tissue. No suspicious cystic or solid mass. Procedure Note Chantel Leo MD - 10/05/2023 EXAMINATION: BILATERAL DIGITAL DIAGNOSTIC MAMMOGRAM INCLUDING CAD AND BILATERAL DIGITAL BREAST TOMOSYNTHESIS; RIGHT BREAST SONOGRAM HISTORY: 58-year-old woman with bilateral breast cancer status post lumpectomy in 1999 presents with palpable abnormality in the upper outer right breast. COMPARISON: Multiple prior mammograms dating back to 08/29/2015. TECHNIQUE: Full field digital mammographic views of BOTH breasts were performed, including computer aided detection (CAD) and BILATERAL digital breast tomosynthesis (DBT). Directed ultrasound evaluation of the RIGHT breast was performed. BREAST PARENCHYMAL COMPOSITION: There are scattered areas of fibroglandular density. MAMMOGRAM FINDINGS: There are postsurgical changes of breast conservation therapy in the bilateral breasts. No suspicious abnormality at palpable area concern in the right breast as denoted by triangular skin marker. No suspicious mass, architectural distortion, or grouped calcifications in either breast. SONOGRAM FINDINGS: Targeted sonographic evaluation of palpable area concern in the right breast at 12:00, 11 cm from the nipple, showed normal fibroglandular tissue. No suspicious cystic or solid mass. IMPRESSION: 1. Stable postsurgical changes of bilateral breast conservation therapy. No suspicious abnormality in either breast. 2. No mammographic or sonographic correlate for area of clinical concern in right breast. Clinical follow-up is recommended. OVERALL FINAL ASSESSMENT: BI-RADS Category 2: Benign. RECOMMENDATION: 1. Annual screening mammography is recommended. 2. Clinical follow-up is recommended. Dictated by: Anahy Morales DO The radiology attending physician has personally reviewed this study, and had reviewed and/or edited this written report and agrees with it. Electronically signed by: Chantel Leo M.D. us Loni MARY IMG MAMMO PROCED URES Final Result * COLONOSCOPY (06/13/2020 9:01 AM CDT) Anatomical Region Laterality Modality Other Narrative Procedure Note Kal Ha MD - 06/13/2020 9:01 AM CDT ENDOSCOPY LAB Patient Name: Alana Pal Procedure Date: 06/13/2020 9:01 AM Date of : 1965 Admit Type: Outpatient Age: 54 Gender: Female Attending MD: Kal Ha M.D. Room: [facility] ENDOSCOPY ROOM 04 Note Status: Finalized Procedure: Colonoscopy Indications: Last colonoscopy: November 2015, Follow-up ofdiverticulitis Providers: Kal Ha M.D. Referring MD: Pratik Vickers Medicines: Monitored Anesthesia Care Complications: No immediate complications. Estimated Blood Loss: Estimated blood loss: none. Procedure: Pre-Anesthesia Assessment: - The risks and benefits of the procedure and thesedation options and risks were discussed with the patient. All questions were answered and informed consent wasobtained. - Immediately prior to administration of medications,the patient was re-assessed for adequacy to receivesedatives. The benefits, risks and alternatives of the procedureand sedation were discussed and informed consent wasobtained. All questions were answered. Please refer to the signed informed consent document in the medical record. Thescope was passed under direct vision. The [id number] introduced through the anus and advanced to the cecum, identified by appendiceal orifice and ileocecal valve.The colonoscopy was performed without difficulty. Thepatient tolerated the procedure well. The quality of the bowel preparation was evaluated using the BBPS (Conneaut Bowel Preparation Scale) with scores of: Right Colon = 3, Transverse Colon = 3 and Left Colon = 3 (entire mucosa seen well with no residual staining, small fragments of stool or opaque liquid). The total BBPS score equals9. Findings: Scattered small-mouthed diverticula were found in the sigmoidcolon. There is no endoscopic evidence of mass or polyps in the entirecolon. The exam was otherwise without abnormality on direct and retroflexion views. Impression: - Diverticulosis in the sigmoid colon. - The examination was otherwise normal on direct and retroflexion views. - No specimens collected. Recommendation: - Repeat colonoscopy in 10 years for screeningpurposes. Attending Participation: I personally performed the entire procedure. Electronically Signed: Kal Ha MD Kal Ha M.D. 06/13/2020 9:32:05 AM Number of Addenda: 0 Note Initiated On: 06/13/2020 9:01 AM Kal Ha MD ENDOSCOPY PROCEDURES Michelle l Result from Last 3 Months or Most Recently Relevant to Health Maintenance Insurance ANTHEM ACCESS TRADITIONAL ACCESS OOS Member Subscriber Plan / Payer (Ef fective 2021-Present) Name:Alana Pal Relation to Subscriber:Self Name:Alana Pal Payer ID:[id number] (NAIC) Group ID:Not on file Type:InboundWriter Address: [address] [facility] [place] [place] [address] Advance Directives For more information, please contact: [phone] * Full Code (Latest Code Status on File) Date Activated Date Inactivated Comments 06/13/2020 8:02 AM 06/13/2020 1:57 PM * Full Code Date Activated Date Inactivated Comments 09/01/2019 8:33 AM 09/01/2019 3:28 PM Care Teams Heel Dipper Relationship Specialty Start Date End Date Loni Duong PA PCP - General 11/19/16
--- OUTSIDE RECORDS SUMMARY | 2025-01-16 10:43 | XMS_ITS | Clinical Summary ---
Author Organization [facility] Address [address] [place] [address] Care Team Providers Care Wine Manager Name Role Phone Loni Duong Primary Care Pr ovider Allergies Active Allergy Reactions Criticality Noted Date Comments Codeine Itching Low Medications [id number]- iron [id number]-[id number] 18 mg iron-600 mcg-80 mcg [...] (05/23/2020): Added automatically from request for surgery [id number] Encounter for follow-up surveillance of breast c ancer 04/23/2020 History of bilateral breast cancer 04/23/2020 Generalized abdominal pain 10/12/2019 Diverticulitis of large inte brian without perforation or abscess without bleeding 10/12/2019 Gastric nodule 10/12/2019 Epigastric pain 07/23/2019 Irritable bowel syndrome 11/01/2018 Surgical History Surgery Date Site/Laterality Comments PA DELIVERY ONLY PA CHOLECYSTECTOMY PA DILATION & CURETTAGE DX&/THER NONOBSTETRIC MASTECTOMY, PARTIAL 09/13/1999 - 09/12/2000 Bilateral lymph node dissection R KNEE ARTHROSCOPY 09/13/2002 - 09/12/2003 Left UPPER GASTROINTESTINAL ENDOSCOPY COLONOSCOPY Medical History Medical History Date Comments Irritable bowel syndrome Gastric nodule 2015 followed by EUS PONV (postoperative nausea and vomiting) Bilateral breast cancer (HCC) 1999 s/ p chemoradiation, taxmoifen tx Diverticulitis of colon History of colon polyps Family History Medical History Relation Name Comments Diabetes Brother Family history of diabetes mellitus - (Added by TW Conv) Arrhythmia Father Family history of cardiac pacemaker - (Added by TW Conv) Heart defect Father Heart problem - (Added by TW Conv) Breast cancer Mother Family history of malignant neoplasm of breast - (Added by TW Conv) Diabetes Mother Family history of diabetes mellitus - (Added by TW Conv) Heart defect Mother Heart problem - (Added by TW Conv) Kidney failure Mother Family histor y of renal failure - (Added by TW Conv) Relation Name Status Comments Brother Father Mother Social History Tobacco Use Types Packs/Day Years Used Date Smoking Tobacco: Never Smokeless Tobacco: Never Alcohol Use Standard Drinks/Week Comments No 0 (1 standard drink = 0.6 oz pur e alcohol) Comments No Sex and Gender Information Value Date Recorded Sex Assigned at Not on file Legal Sex 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 Gender Identity Not on file Sexual Orientation Not on file Obstetrics History Last Filed Vital Signs Vital Sign Reading [...] 06/13/2020 8:05 AM CDT Plan of Treatment Health Maintenance Due Date Last Done Comments Cervical Cancer Screening 1965 Depression Screening 1965 Hepatitis C Screening 1965 DTaP/Tdap/Td Vaccine (1 - Tdap) 1975 Hepatitis B Screening 1982 Regular Well Visit/Exam 18-64 1982 Zoster Vaccine (1 of 2) 2014 Breast Cancer Screening-Mammogram 10/05/2024 10/05/2023, 08/12/2022, 04/30/2021, Additional history exists Influenza Vaccine (Season Ended) 2025 Colon Cancer Screening-Colonoscopy 06/13/2030 06/13/2020, 12/10/2015 Colon Cancer Screening-CT Colonography Discontinued 06/13/2020, 12/10/2015 Colon Cancer Screening-DNA Stool Discontinued 06/13/2020, 12/10/2015 Colon Cancer Screening-FIT Discontinued 06/13/2020, Colon Cancer Screening-Sigmoidoscopy Discontinued 06/13/2020, 12/10/2015 Pneumococcal vaccine <65 Aged Out No longer eligible based on patient's age to complete this topic Procedures Procedure Name Priority Date/Time Associated Diagnosis Comments DIAGNOSTIC MAMMOGRAM BILATERAL W CHETAN Schedule Routine, Read Routine (OP Routine) 10/05/2023 9:39 AM REDUCING SALON ATTENDANT Unspecified lump in axillary tail of the right breast COLONOSCOPY 06/13/2020 9:01 AM CDT from Last 3 Months or Most Recently Relevant to Health Maintenance Results * Diagnostic Mammogram Bilateral W Chetan (10/05/2023 9:39 AM REDUCING SALON ATTENDANT) Anatomical Region Laterality Modality Breast Bilateral Mammography 10/05/2023 10:1 3 AM REDUCING SALON ATTENDANT Impressions 10/05/2023 10:37 AM REDUCING SALON ATTENDANT 1. Stable postsurgical changes of bilateral breast [...] Chantel Leo M.D. Narrative 10/05/2023 10:37 AM REDUCING SALON ATTENDANT EXAMINATION: BILATERAL DIGITAL DIAGNOSTIC MAMMOGRAM INCLUDING CAD [...] Female Attending MD: Kal Ha M.D. Room: [facility] ENDOSCOPY ROOM 04 Note Status: Finalized [...] Thescope was passed under direct vision. The [id number] introduced through the anus and advanced to the cecum, identified by appendiceal orifice and ileocecal valve.The colonoscopy was performed without difficulty. Thepatient tolerated the procedure well. The quality of the bowel preparation was evaluated using the BBPS ([place] Bowel Preparation Scale) with scores of: Right [...] to Health Maintenance Insurance [employer]ESS [employer]ITIONAL Member Subscriber Plan / Payer ( fective 2015-Present) Name:Alana Pal Relation to Subscriber:Spouse Name:CATRACHITO PAL JR Date of :1964 Payer ID:[id number] (NAIC) Type:[email or web address] Address[address] [address] ACCESS OOS Member Subscriber Plan / Payer ( fective 2021-Present) Name:Alana Pal Relation to Subscriber:Self Name:Alana Pal Payer ID:[id number] (NAIC) Group ID:Not on file Type:[email or web address] Address: [address] [employer]US [place] [phone] CHO[employer] PLUS Advance Directives For more information, please contact: [phone] * Full Code (Latest Code Status on File) Date Activated Date Inactivated Comments 06/13/2020 8:02 AM 06/13/2020 1:57 PM * Full Code Date Activated Date Inactivated Comments 09/01/2019 8:33 AM 09/01/2019 3:28 PM Care Teams Wine Manager Relationship Specialty Start Date End Date Loni Duong PA PCP - General 11/19/16
--- OUTSIDE RECORDS SUMMARY | 2025-01-16 10:43 | XMS_ITS | Data Portability ---
Author Organization [facility] Ashley [facility] Address [address] [place] [address] Care Team Providers Care Aquatic Biologist Name Role Phone NEAL HOLLOWAY Primary Care Provider [phone] Assessment No assessment recorded. Plan of Treatment Reminders Order Date Submit Date Provider Last Modified By Organization Details Last Modified Time Details Appointments None recorded. Lab TSH + free T4, serum 2023 024 POULAN Misa, [address], [address], [place], [address], 4 05:11:33 CBC w/ auto diff 2023 024 [facility], [address], [place], [address], 4 05:11:35 CMP, serum or plasma 2023 024 POULAN Misa, [address], [address], [place], [address], 4 05:11:34 vitamin B12 + folate, serum or blood 2023 024 POULAN Misa, [address], [address], [place], [address], 4 05:11:34 magnesium, serum or plasma 2023 024 [facility], [address], [place], [address], 4 05:11:34 lipid panel, serum 2023 024 POULAN [facility], [address], [place], [address], 4 05:11:35 vitamin D, 25-hydroxy, total, serum 2023 024 POULAN [facility], [address], [place], [address], 4 05:11:35 HbA1c (hemoglobin A1c), blood 2023 024 [facility], [address], [place], [address], 4 05:11:34 Referral orthopedic surgeon referral 2024 025 [email or web address] Jersey Garay, [address], [address], [place], [address], 5 12:53:01 orthopedic surgeon referral 2023 024 ANA LILIA Lomax MD, [address], [address], [place], [address], 4 11:53:32 Procedures None recorded. Surgeries None recorded. Imaging None recorded. Medication Orders None recorded. Patient TargetsNo targets recorded. Patient Instructions Encounter Date Encounter Id Patient Instructions Last Modified By Organization Details Last Modified Time 09/25/2024 [id number] A healthy lifestyle: care instructions [email or web address] Not available 09/25/2024 12:55:35 Reason for Referral Orthopedic Surgeon Referral for Osteoarthritis of hip Referring Physician: Loni Duong, Internal Medicine, Encounter Date: 01/28/2024 Orthopedic Surgeon Referral for Pain of knee region Referring Physician: Loni Duong, Internal Medicine, Encounter Date: 09/25/2024 Results Created Date Observation Date Name Description Value Unit Range Abnormal Flag Note LastModifiedBy Organization Detail LastModifiedTime 02/04/2002/05/2024 LIPID PANEL W/ CHOL/ HDL RATIO cholesterol, total 176 mg/dL 100-19 9 Not Available [facility] ([facility]) [address] [place], [address], 02/05/2024 11:13:27 02/04/20 24 02/05/2024 LIPID PANEL W/ CHOL/ HDL RATIO triglyceride s 99 mg/dL 0-149 Not Available [facility] ([facility]) [address] [place], [address], 02/05/2024 11:13:27 02/04/20 24 02/05/2024 LIPID PANEL W/ CHOL/ HDL RATIO HDL cholesterol 44 mg/dL >39 Not Available [facility] ([facility]) [address] [place], [address], 02/05/2024 11:13:27 02/04/20 24 02/05/2024 LIPID PANEL W/ CHOL/ HDL RATIO VLDL cholesterol alvaro 18 mg/dL 5-40 Not Available [facility] ([facility]) [address] [place], [address], 02/05/2024 11:13:27 02/04/20 24 02/05/2024 LIPID PANEL W/ CHOL/ HDL RATIO LDL chol calc ([facility]) 114 mg/dL 0-99 above high normal Not Available [facility] ([facility]) [address] [place], [address], 02/05/2024 11:13:27 02/04/20 24 02/05/2024 LIPID PANEL W/ CHOL/ HDL RATIO T. chol/HDL ratio 4.0 ratio 0.0-4. 4 T. Chol/ HDL Ratio Men Women 1/2 Avg.R isk 3.4 3.3 Avg.R isk 5.0 4.4 2X Avg.R isk 9.6 7.1 3X Avg.R isk 23.4 11.0 Not Available [facility] ([facility]) [address] [place], [address], 02/05/2024 11:13:27 02/04/20 24 02/05/2024 TSH+F REE T4 TSH 1.230 uIU/m L 0.450- 4.500 Not Available [facility] ([facility]) [address] [place], [address], 02/05/2024 11:13:28 02/04/20 24 02/05/2024 TSH+F REE T4 T4,free(dire ct) 1.37 NG/dL 0.82-1 .77 Not Available [facility] ([facility]) [address] [place], [address], 02/05/2024 11:13:28 02/04/20 24 02/05/2024 COMP. METAB OLIC PANEL (14) glucose 96 mg/dL 70-99 Not Available [facility] ([facility]) [address] [place], [address], 02/05/2024 11:13:28 02/04/20 24 02/05/2024 COMP. METAB OLIC PANEL (14) BUN 13 mg/dL 6-24 Not Available [facility] ([facility]) [address] [place], [address], 02/05/2024 11:13:28 02/04/20 24 02/05/2024 COMP. METAB OLIC PANEL (14) creatinine 0.73 mg/dL 0.57-1 .00 Not Available [facility] ([facility]) [address] [place], [address], 02/05/2024 11:13:28 02/04/20 24 02/05/2024 COMP. METAB OLIC PANEL (14) eGFR 95 mL/mi n/1.7 3 >59 Not Available [facility] ([facility]) [address] [place], [address], 02/05/2024 11:13:28 02/04/20 24 02/05/2024 COMP. METAB OLIC PANEL (14) BUN/creatini ne ratio 18 9-23 Not Available [facility] ([facility]) [address] [place], [address], 02/05/2024 11:13:28 02/04/20 24 02/05/2024 COMP. METAB OLIC PANEL (14) sodium 137 mmol/ L 134-14 4 Not Available [facility] ([facility]) [address] [place], [address], 02/05/2024 11:13:28 02/04/20 24 02/05/2024 COMP. METAB OLIC PANEL (14) potassium 4.2 mmol/ L 3.5-5. 2 Not Available [facility] ([facility]) [address] [facility], [place], [address], 02/05/2024 11:13:28 02/04/20 24 02/05/2024 COMP. METAB OLIC PANEL (14) chloride 99 mmol/ L 96-106 Not Available [facility] ([facility]) [address] [place], [address], 02/05/2024 11:13:28 02/04/20 24 02/05/2024 COMP. METAB OLIC PANEL (14) carbon dioxide, total 24 mmol/ L 20-29 Not Available [facility] ([facility]) [address] [place], [address], 02/05/2024 11:13:28 02/04/20 24 02/05/2024 COMP. METAB OLIC PANEL (14) calcium 9.9 mg/dL 8.7-10 .2 Not Available [facility] ([facility]) [address] [place], [address], 02/05/2024 11:13:28 02/04/20 24 02/05/2024 COMP. METAB OLIC PANEL (14) protein, total 7.0 g/dL 6.0-8. 5 Not Available [facility] ([facility]) [address] [place], [address], 02/05/2024 11:13:28 02/04/20 24 02/05/2024 COMP. METAB OLIC PANEL (14) albumin 4.4 g/dL 3.8-4. 9 Not Available [facility] ([facility]) [address] [place], [address], 02/05/2024 11:13:28 02/04/20 24 02/05/2024 COMP. METAB OLIC PANEL (14) globulin, total 2.6 g/dL 1.5-4. 5 Not Available [facility] ([facility]) [address] [place], [address], 02/05/2024 11:13:28 02/04/20 24 02/05/2024 COMP. METAB OLIC PANEL (14) A/G ratio 1.7 1.2-2. 2 Not Available [facility] ([facility]) [address] [place], [address], 02/05/2024 11:13:28 02/04/20 24 02/05/2024 COMP. METAB OLIC PANEL (14) bilirubin, total 0.6 mg/dL 0.0-1. 2 Not Available [facility] ([facility]) [address] [place], [address], 02/05/2024 11:13:28 02/04/20 24 02/05/2024 COMP. METAB OLIC PANEL (14) alkaline phosphatase 80 IU/L 44-121 Not Available [facility] ([facility]) [address] [place], [address], 02/05/2024 11:13:28 02/04/20 24 02/05/2024 COMP. METAB OLIC PANEL (14) AST (SGOT) 18 IU/L 0-40 Not Available [facility] ([facility]) [address] [place], [address], 02/05/2024 11:13:28 02/04/20 24 02/05/2024 COMP. METAB OLIC PANEL (14) ALT (SGPT) 17 IU/L 0-32 Not Available [facility] ([facility]) [address] [place], [address], 02/05/2024 11:13:28 02/04/20 24 02/05/2024 VITAM IN B12 AND FOLAT E vitamin B12 870 pg/mL 232-12 45 Not Available [facility] ([facility]) [address] [place], [address], 02/05/2024 11:13:28 02/04/20 24 02/05/2024 VITAM IN B12 AND FOLAT E folate (folic acid), serum >20.0 NG/mL >3.0 A serum folat e yen ntrat ion of less than 3.1 ng/mL is consi dered to repre sent clini alvaro defic iency . Not Available [facility] ([facility]) [address] [facility], [place], [address], 02/05/2024 11:13:28 02/04/2002/05/2024 HEMOG LOBIN A1C hemoglobin A1C 5.6 % 4.8-5. 6 Predi abete s: 5.7 - 6.4 Diabe aleja: >6.4 Glyce jordan contr ol for adult s with diabe aleja: <7.0 Not Available [facility] ([facility]) [address] [place], [address], 02/05/2024 11:13:29 02/04/2002/05/2024 MAGNE SIUM magnesium 1.9 mg/dL 1.6-2. 3 Not Available [facility] ([facility]) [address] [place], [address], 02/05/2024 11:13:29 02/04/2002/05/2024 CBC WITH DIFFE RENTI AL/PL ATELE T WBC 4.2 x10e3 /uL 3.4-10 .8 Not Available [facility] ([facility]) [address] [place], [address], 02/05/2024 11:13:29 02/04/20 24 02/05/2024 CBC WITH DIFFE RENTI AL/PL ATELE T RBC 4.41 x10e6 /uL 3.77-5 .28 Not Available [facility] ([facility]) [address] [place], [address], 02/05/2024 11:13:29 02/04/2002/05/2024 CBC WITH DIFFE RENTI AL/PL ATELE T hemoglobin 12.9 g/dL 11.1-1 5.9 Not Available [facility] ([facility]) [address] [place], [address], 02/05/2024 11:13:29 02/04/20 24 02/05/2024 CBC WITH DIFFE RENTI AL/PL ATELE T hematocrit 40.2 % 34.0-4 6.6 Not Available [facility] ([facility]) [address] [place], [address], 02/05/2024 11:13:29 02/04/2002/05/2024 CBC WITH DIFFE RENTI AL/PL ATELE T MCV 91 fL 79-97 Not Available [facility] ([facility]) [address] [place], [address], 02/05/2024 11:13:29 02/04/2002/05/2024 CBC WITH DIFFE RENTI AL/PL ATELE T MCH 29.3 pg 26.6-3 3.0 Not Available [facility] ([facility]) [address] [place], [address], 02/05/2024 11:13:29 02/04/2002/05/2024 CBC WITH DIFFE RENTI AL/PL ATELE T MCHC 32.1 g/dL 31.5-3 5.7 Not Available [facility] ([facility]) [address] [facility], [place], [address], 02/05/2024 11:13:29 02/04/20 24 02/05/2024 CBC WITH DIFFE RENTI AL/PL ATELE T RDW 12.1 % 11.7-1 5.4 Not Available [facility] ([facility]) [address] [facility], [place], [address], 02/05/2024 11:13:29 02/04/20 24 02/05/2024 CBC WITH DIFFE RENTI AL/PL ATELE T platelets 326 x10e3 /uL 150-45 0 Not Available [facility] ([facility]) [address] [facility], [place], [address], 02/05/2024 11:13:29 02/04/20 24 02/05/2024 CBC WITH DIFFE RENTI AL/PL ATELE T neutrophils 57 % notest ab. Not Available [facility] ([facility]) [address] [facility], [place], [address], 02/05/2024 11:13:29 02/04/20 24 02/05/2024 CBC WITH DIFFE RENTI AL/PL ATELE T lymphs 29 % notest ab. Not Available [facility] ([facility]) [address] [facility], [place], [address], 02/05/2024 11:13:29 02/04/20 24 02/05/2024 CBC WITH DIFFE RENTI AL/PL ATELE T monocytes 10 % notest ab. Not Available [facility] ([facility]) [address] [facility], [place], [address], 02/05/2024 11:13:29 02/04/20 24 02/05/2024 CBC WITH DIFFE RENTI AL/PL ATELE T eos 3 % notest ab. Not Available [facility] ([facility]) [address] [facility], [place], [address], 02/05/2024 11:13:29 02/04/20 24 02/05/2024 CBC WITH DIFFE RENTI AL/PL ATELE T basos 1 % notest ab. Not Available [facility] ([facility]) [address] [facility], [place], [address], 02/05/2024 11:13:29 02/04/20 24 02/05/2024 CBC WITH DIFFE RENTI AL/PL ATELE T neutrophils (absolute) 2.4 x10e3 /uL 1.4-7. 0 Not Available [facility] ([facility]) [address] [facility], [place], [address], 02/05/2024 11:13:29 02/04/20 24 02/05/2024 CBC WITH DIFFE RENTI AL/PL ATELE T lymphs (absolute) 1.2 x10e3 /uL 0.7-3. 1 Not Available [facility] ([facility]) [address] [facility], [place], [address], 02/05/2024 11:13:29 02/04/20 24 02/05/2024 CBC WITH DIFFE RENTI AL/PL ATELE T monocytes(ab solute) 0.4 x10e3 /uL 0.1-0. 9 Not Available [facility] ([facility]) [address] [place], [address], 02/05/2024 11:13:29 02/04/20 24 02/05/2024 CBC WITH DIFFE RENTI AL/PL ATELE T eos (absolute) 0.1 x10e3 /uL 0.0-0. 4 Not Available [facility] ([facility]) [address] [facility], [place], [address], 02/05/2024 11:13:29 02/04/20 24 02/05/2024 CBC WITH DIFFE RENTI AL/PL ATELE T baso (absolute) 0.0 x10e3 /uL 0.0-0. 2 Not Available [facility] ([facility]) [address] [facility], [place], [address], 02/05/2024 11:13:29 02/04/20 24 02/05/2024 CBC WITH DIFFE RENTI AL/PL ATELE T immature granulocytes 0 % notest ab. Not Available [facility] ([facility]) [address] [facility], [place], [address], 02/05/2024 11:13:29 02/04/2002/05/2024 CBC WITH DIFFE RENTI AL/PL ATELE T immature grans (abs) 0.0 x10e3 /uL 0.0-0. 1 Not Available [facility] ([facility]) [address] [place], [address], 02/05/2024 11:13:29 02/04/20 24 02/05/2024 VITAM IN [...] Endoc rine Socie ty went on to furth er defin e vitam in D insuf ficie ncy as a level betwe en 21 and 29 ng/mL (2). 1. IOM (Inst itute of Medic ine). 2010. Dieta ry refer ence brandee es for calci um and D. Rosa triplett [place]: The [facility] . 2. Abe whelan [place], Binkl ey [place], Phuong off-F errar i KENT, et al. Evalu ation , treat ment, and preve ntion of vitam in D defic iency : an Endoc rine Socie ty clini alvaro pract ice guide line. JCEM. 2010; 96(7) :1911 -30. Not Available [facility] ([facility]) [address], [place], [address], 02/05/2024 11:13:30 07/20/20 24 07/20/2024 pap, IG + HR HPV Pap negati ve Not Available Not Available 17:25:24 04/03/20 24 04/03/2024 CT, abdom en + pelvi s, w/ contr ast No observ ation record ed. [address], [place], [address], 04/05/2024 23:03:03 09/14/19 25 09/12/2024 CT, abdom en + pelvi s, w/ contr ast No observ ation record ed. [address], [place], [address], 09/14/2024 17:38:23 10/26/19 25 10/26/2024 XR, knee No observ ation record ed. [address], [place], [address], 10/27/2024 13:57:16 Result Notes None recorded. Problems Name Problem SNOMED Code Status Onset Date Resolution Date Notes Provider Name and Address Organization Details Recorded Time Vitamin D deficiency 91440465 Active 2023 Portia blum, [place] - [facility] 4 09:56:56 Diverticular disease 787500103 Active 2023 Portia Dodge null, [place] - [facility] 4 09:57:10 Spondylolisthe sis 253006868 Active 2023 Portia Dodge [place] [facility] 4 09:57:25 Body mass index 25-29 - overweight 024470891 Active 2024 Jose Nava [place] null, [place] - [facility] 5 12:28:58 Overweight 774106790 Active 2024 TYRA Sol Attn: Kirk sterling,[address], [place], [address], [place] - [facility] 21:22:48 Problem Notes None recorded. Procedures Surgical History Date Name Laterality Status Provider Name and Address Organization Details Recorded Time 04/05/20 23 colonoscopy completed Portia Dodge [place] - [facility] 12/20/2023 10:03:42 09/13/19 10 cholecystectomy completed Portia Dodge [place] - [facility] 12/20/2023 10:00:26 09/13/19 08 section completed Portiajade Dodge [place] - [place] 12/20/2023 10:00:36 09/13/19 Breast Surgery completed Portiajade Dodge [place] - [place] 12/20/2023 10:00:55 Imaging Results Imaging Date Name Status LastModified by Organiz ation Details LastModified Time 04/03/2024 CT, abdomen + pelvis, w/ contrast completed [address], [address], 04/05/2024 23:03:03 09/12/2024 CT, abdomen + pelvis, w/ contrast completed [address], [address], 09/14/2024 17:38:23 10/26/2024 XR, knee completed [address], [address], 10/27/2024 13:57:16 Procedure Notes None recorded. Medical Equipment None Reported. Allergies Allergen ID Allergen Name Allergen Category Reaction Reaction Severity Criticality Documentation Date Start Date Code Code System Note Provider Name and Address Organization Details Recorded Time 309448 codeine medicatio n rash Not available Not available 12/20/2023 2670 RxNorm Portia Dodgealivia blum, [place] - [facility] 09:56:40 Medications Name Sig Start Date Stop Date [...] Not Available metronidazo le 500 mg tablet TAKE 1 TABLET BY MOUTH EVERY 8 HOURS 01/12 completed Not Available Not Available Not Available ciprofloxac in 500 mg tablet TAKE 1 TABLET BY MOUTH EVERY 12 HOURS 01/12 completed Not Available Not Available Not Available sulfamethox azole 800 mg-trimetho prim 160 mg tablet TAKE 1 TABLET BY MOUTH TWICE A DAY 09/25 completed Not Available Not Available Not Available cephalexin 500 mg capsule TAKE 1 CAPSULE BY MOUTH EVERY 12 HOURS 09/25 completed Not Available Not Available Not Available diclofenac sodium 50 mg tablet,анна yed release TAKE 1 TABLET BY MOUTH TWICE A DAY 01/12 completed Not Available Not Available Not Available hydroxychlo roquine 200 mg tablet Take 1 tablet twice a day by oral route for 10 days. 01/27 completed Not Available Not Available Not Available celecoxib 100 mg capsule TAKE 1 CAPSULE BY MOUTH EVERY DAY STOP ALEVE active Not Available Not Available No t Available ondansetron 4 mg disintegrat ing tablet [...] Not Available Not Available Not Available magnesium active Not Available Not Gloria ilable Not Available potassium acetate active Not Available Not Available Not Available Fish Oil active Not Available Not Avai lable Not Available multivitami n active Not Available Not Available Not Available biotin 10 mg-collagen 50 mg-keratin 500 mg-levomefo lat-silicon capsule Take by oral route. active Not Available Not Available No t Available Vitals Date Recorded Respiratory rate Body height Body mass index (BMI) Body weight Oxygen saturation Oxygen saturation in Arterial blood by Pulse oximetry Heart rate Systolic blood pressure Diastolic blood pressure Systolic blood pressure Diastolic blood pressure Provider Name and Address Organization Details Last Updated DateTime 4 20 /min 177.8 cm 26.5 kg/m2 49214.2 3 g 97 % 97 % 78 /min 142 mm[Hg] 88 mm[Hg] 132 mm[Hg] 78 mm[Hg] Jose Nava MA [facility] 4 09:50:46 Date Recorded Body height Body mass index (BMI) Body weight Respiratory rate Oxygen saturation Oxygen saturation in Arterial blood by Pulse oximetry Heart rate Systolic blood pressure Diastolic blood pressure Provider Name and Address Organization Details Last Updated DateTime 5 177.8 cm 26.8 kg/m2 85183.7 7 g 20 /min 98 % 98 % 87 /min 130 mm[Hg] 82 mm[Hg] Jose Nava MA [facility] 5 12:42:56 Date Recorded Systolic blood pressure Diastolic blood pressure Provider Name and Address Organization Details Last Updated DateTime 09/25/2024 128 mm[Hg] 82 mm[Hg] TYRA Sol Attn: Accounting,[address] [place], [address], [facility] 09/25/2024 12:52:24 Date Recorded Body height Body mass index (BMI) Body weight Heart rate Oxygen saturation Oxygen saturation in Arterial blood by Pulse oximetry Systolic blood pressure Diastolic blood pressure Provider Name and Address Organization Details Last Updated DateTime 5 177.8 cm 27.5 kg/m2 69715.6 6 g 93 /min 98 % 98 % 128 mm[Hg] 66 mm[Hg] Dagoberto Ornelas MA [facility] 5 09:59:56 Date Recorded Respiratory rate Systolic blood pressure Diastolic blood pressure Provider Name and Address Organization Details Last Updated DateTime 01/12/2025 16 /min 140 mm[Hg] 80 mm[Hg] TYRA Sol Attn: Accounting, [address] [facility], [place], [address], [place] - [place] 01/12/2025 10:10:08 Social History Question Answer Notes LastModified by Organizat ion Details LastModified Time Tobacco Smoking Status Never Smoker Portia blum, [place] - [facility] 12/20/2023 09:59:00 What Is Your Level Of Alcohol Consumption? None Information not available 12/20/2023 Are You Blind Or Do You Have Difficulty Seeing? No Glasses Information n ot available 01/28/2024 What Is Your Level Of Caffeine Consumption? None [email or web address] Information not available 12/20/2023 In The 14 Days Before Symptom Onset, Have You Had Close Contact With A Laboratory-confirm ed COVID-19 While That Case Was Ill? No [email or web address] Information n ot available 12/20/2023 In The 14 Days Before Symptom Onset, Have You Had Close Contact With A Person Who Is Under Investigation For COVID-19 While That Person Was Ill? No [email or web address] Information not available 12/20/2023 Have You Been To An Area Known To Be High Risk For COVID-19? No Information not available 12/20/2023 Are You Currently Employed? No [email or web address] Information not available 12/20/2023 Are You Deaf Or Do You Have Serious Difficulty Hearing? No Information not available 01/28/2024 What Type Of Diet Are You Following? REGULAR [email or web address] Information n ot available 12/20/2023 Are There Any Guns Present In Your Home? No Information not available 09/25/2024 What Was The Date Of Your Most Recent Tobacco Screening? 09/25/2024 Information not available 09/25/2024 What Is Your Relationship Status? [email or web address] Information not available 12/20/2023 Do You Use Your Seat Belt Or Car Seat Routinely? Yes [email or web address] Information not available 12/20/2023 Do You Have Smoke And Carbon Monoxide Detectors In Your Home? Yes Information not available 12/20/2023 Do You Use Any Illicit Or Recreational Drugs? No [email or web address] Information not available 12/20/2023 Do You Use Sunscreen Routinely? Yes [email or web address] Information not available 12/20/2023 Has Tobacco Cessation Counseling Been Provided? Yes Information not available 01/28/2024 On What Date Was Tobacco Cessation Counseling Provided? 09/25/2024 Information not available 09/25/2024 Do You Or Have You Ever Used Any Other Forms Of Tobacco Or Nicotine? No [email or web address] Information not available 12/20/2023 Sex: Female Functional Status Question Answer Note LastModified by Organization D etails LastModified Time Are you able to care for yourself? Yes [email or web address] Information n ot available 12/20/2023 What is your exercise level? None [email or web address] Information not available 12/20/2023 Mental Status None recorded. Family History Relationship Description Onset Age of this Age Resolved Age Notes LastModified by Organization Details LastModified Time Father Diabetes mellitus [email or web address] Not available 12/19 09:57:45 Father Hypertensive disorder [email or web address] Not available 2023 11:48:07 Brother Malignant neoplasm of brain 58 [email or web address] Not available 12/19 09:58:02 Brother Hypertensive disorder [...] Skin Problems N Anemia N Heart Attack ([place]) N Anxiety Disorder N Diabetes N Muscle, [...] SNOMED-CT Code Diagnosis ICD10 Code Diagnosis Note [id number] Jonah Sherman MD [facility] [employer] [address] [place] [address] 01/28/2024 09:24:58 01/28/2024 11:10:07 Pain of right hip joint 9112030922 49183 M25.551 as above. Osteoarthritis of hip 23 6079825 M16.9 refer to Orthopedic s for evaluation and options for her known OA of right hip Cholesterol screening 27 8654826 Z13.220 fasting lipids due Diabetes m ellitus screening 529321232 Z13.1 a1c screening due Thyroid di sorder screening 983189452 Z13.29 TFT panel due Long-term drug therapy 963059781 Z79.899 routine cmp, cbc, b12, folate and magnesium labs ordered. Vitamin D deficiency 347 72835 E55.9 pt requests Vit D lab order [id number] Jonah Sherman MD [facility] [employer] [facility] [address] [place] [address] 09/25/2024 12:16:48 09/25/2024 13:06:10 Body mass index 25-29 - overweight 462704401 Z68.26 BMI is 26.8 Overweight 719755178 E66 .3 Diverticul itis of sigmoid colon 396129149 K57.32 Patient has improved well on Cipro and Flagyl combinatio n, advance diet slowly Pain of knee region 1003 316325 M25.569 pain in left medial knee after twisting wrong recently. Refer to orthopedic s [id number] Jonah Sherman MD [facility] [employer] [address] [place] [address] 01/12/2025 09:28:42 01/12/2025 10:39:00 Preprocedural examination done 8963023213 28722 Z01.818 Preop exam completed. she will be getting preop labs and ekg next week for preop Osteoarthr itis of right hip joint 3573575855 25997 M16.11 planned on february 08 for JOSÉ MIGUEL. Nasal congestion 4827861 0 R09.81 Health Concerns Section Related Observation LastModified by Organization [facility] LastModified Time None Recorded Concern Status LastModified by Organization Details LastModified Time None Recorded Advance Directives Directive None Recorded Payers Encounter Date Sequence Insurance Name Policy Number Policy Mohamud Covered Member ID Mohamud Member ID Guarantor Name 01/28/2024 1 [facility] [id number] Catrachito Olguin [id number] Alana Olguin 09/25/2024 1 [facility] [id number] Catrachito Olguin [id number] Alana Olguin Notes Date Note Type Note [...] if a flexibility issues in that leg. TYRA Sol Attn: [address]ing[address] [place], [address], [facility] 02/13/2024 20:45:09 09/25/2024 text/html Patient is here [...] referral placed TYRA Sol Attn: [employer]ing[address] [place], [address], [facility] 10/12/2024 21:23:03 OBGyn Episode No OBEpisode recorded.
--- OUTSIDE RECORDS SUMMARY | 2025-01-16 10:44 | XMS_ITS | Clinical Summary ---
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
--- OUTSIDE RECORDS SUMMARY | 2025-01-16 10:44 | XMS_ITS | Data Portability ---
Author Organization [facility] Address [address] [place] [address] Assessment Encounter Date Assessment Date Assessment LastModified [...] recorded. Lab biopsy, endometri al 2015 Tanna [email or web address] [facility], [address] [place] [address], [address], [place], [address], 6 13:08:18 pathology study - emb 2015 Tanna [email or web address] [facility], [address], [address], [place], [address], 6 12:06:24 urinalysi s, dipstick 2015 016 In-Office Order, Internal Use Only DO Not Attach Compendium DO Not Attach Compendium, Do Not Delete/merge, [id number] 6 10:54:31 test, urine 2015 016 [email or web address] In-Office Order, Internal Use Only DO Not Attach Compendium DO Not Attach Compendium, Do Not Delete/merge, [id number] 6 18:49:48 urinalysi s, dipstick 2015 016 [email or web address] In-Office Order, Internal Use Only DO Not Attach Compendium DO Not Attach Compendium, Do Not Delete/merge, [id number] 6 18:49:48 urinalysi s, dipstick 2015 016 In-Office Order, Internal Use Only DO Not Attach Compendium DO Not Attach Compendium, Do Not Delete/merge, [id number] 6 11:58:48 bacterial vaginosis + vaginitis panel, vaginal 2015 016 ANA LILIA [facility], [address], [address], [place], [address], 6 06:04:50 TSH + free T4, serum 2015 016 ANA LILIA [facility], [address], [address], [place], [address], 6 07:22:45 progester one, serum 2015 016 ANA LILIA [facility], [address], [address], [place], [address], 6 07:22:49 HbA1c (hemoglob in A1c), blood 2015 016 [facility] L[facility]IA [facility], [facility] [address], [address], [place], [address], 6 07:22:47 CMP, serum or plasma 2015 016 ANA LILIA [facility], [address] [place], [place] [address]diann [address], [address], [place], [address], 6 07:22:46 FSH (follicle -stimulat ing hormone), serum 2015 016 [facility] LILIA [facility], [facility] [address], [address], [place], [address], 6 07:22:48 CBC w/ auto diff 2015 016 [facility]IA [facility], [address] [place] [address] Claude, [address], [place], [address], 6 07:22:45 estradiol , serum 2015 016 [facility] L[facility]IA [facility], [address] [place], [place] [address]jovan Claude, [address], [place], [address], 6 07:22:48 urinalysi s, dipstick 2015 Tanna song In-Office Order, Internal Use Only DO Not Attach Compendium DO Not Attach Compendium, Do Not Delete/merge, [id number] 6 16:20:53 culture, urine 2015 016 ANA LILIA COOPER, [facility] Hospital[facility] mike [address], [address], [place], [address], 6 06:12:59 pap, IG + HPV, cervical 2015 016 ANA LILIA OBRIEN, [address], [address], [place], [address], 6 16:41:55 bacterial vaginosis + vaginitis panel, vaginal 2015 016 ANA LILIA OBRIEN, [address], [address], [place], [address], 6 06:11:53 HSV (1+2) DNA, qual, PCR, unspecifi ed specimen 2015 016 ANA LILIA OBRIEN, [address], [address], [place], [address], 6 06:11:54 unlisted lab - kathy 6 species profile, MANJIT 2015 016 ANA LILIA COOPERNARAYAN, Gary Ndiayeabidageetadiann [address], [address], [place], [address], 6 06:11:54 test, urine 2014 Jaqui song In-Office Order, Internal Use Only DO Not Attach Compendium DO Not Attach Compendium, Do Not Delete/merge, [id number] 5 09:30:07 CBC w/ auto diff 2014 015 ANA LILIA COOPERNARAYAN, Gary Ndiayemike [address], [address], [place], [address], 5 16:34:31 progester one, serum 2014 015 ANA LILIA WESLEYJULIETA, Gary Ndiayemike [address], [address], [place], [address], 5 16:34:36 HbA1c (hemoglob in A1c), blood 2014 015 ANA LILIA WESLEYJULIETA, FitoLana [address], [address], [place], [address], 5 16:34:33 CMP, serum or plasma 2014 015 ANA LILIA [facility], [address], [address], [place], [address], 5 16:34:32 TSH, serum or plasma 2014 015 [email or web address] [facility], [address], [address], [place], [address], 5 16:20:44 FSH (follicle -stimulat ing hormone), serum 2014 015 ANA LILIA [facility], [address], [address], [place], [address], 5 16:34:34 estradiol , serum 2014 015 ANA LILIA OBRIEN, [address], [address], [place], [address], 5 16:34:35 urinalysi s, dipstick 2014 015 [email or web address] In-Office Order, Internal Use Only DO Not Attach Compendium DO Not Attach Compendium, Do Not Delete/merge, [id number] 5 09:30:07 bacterial vaginosis + vaginitis panel, vaginal 2014 015 ANA LILIA [facility], [address], [address], [place], [address], 5 11:41:55 HSV (1+2) DNA, qual, PCR, unspecifi ed specimen 2014 015 ANA LILIA OBRIEN, [address], [address], [place], [address], 5 11:41:56 culture, vaginal/r ectal, streptoco ccus group B 2014 015 [facility], [address], [address], [place], [address], 5 11:41:56 Referral gastroent erologist referral - colitis and diverticu litis. needs colonosco py and f/u with specialis t 2015 016 [facility], [address] [facility], [address] [facility], [place], [address], 6 17:31:59 Procedures None recorded. Surgeries None recorded. Imaging US, transvagi nal 2015 016 [facility], [address] [place], [address], 6 13:50:22 Medication Orders Diflucan 150 mg tablet 2015 016 [id number], [address] [place], [address], 6 18:32:13 [place] 5 mg-325 mg tablet 2015 016 [id number], [address] [place], [address], 6 18:32:13 ibuprofen 800 mg tablet 2015 016 [id number], [address] [place], [address], 6 18:32:13 nystatin 100,000 unit/gram topical cream 2014 015 [email or web address] [id number], [address] [place], [address], 6 15:38:41 fluconazo le 150 mg tablet 2014 015 duncan [id number], [address] [place], [address], 6 15:38:41 Patient TargetsNo targets recorded. Patient Instructions Encounter Date Encounter Id Patient Instructions Last Modified By Organization Details Last Modified Time 12/20/[id number] candidiasis: care instructions [email or web address] Not available 12/24/2014 10:07:34 11/04/2015 [id number] irritable bowel syndrome: care instructions [email or web address] Not available 11/04/2015 16:20:54 05/13/2016 [id number] chronic pelvic pain: care instructions Not available 05/13/2016 18:32:13 06/03/2016 [id number] uterine fibroids: care instructions Not available 06/04/2016 09:11:19 06/10/2016 [id number] chronic pelvic pain: care instructions [email or web address] Not available 06/11/2016 12:06:05 uterine fibroids: care instructions [email or web address] Not available 06/11/2016 12:06:05 Reason for Referral colitis and diverticulitis. needs colonoscopy and f/u with specialist Referring Physician: Cosme Gloria, BUSINESS SEGMENT MANAGER, Encounter Date: 11/04/2015 Results Created Date Observation Date Name Description Value Unit Range Abnormal Flag Note LastModifiedBy Organization Detail LastModifiedTime 06/10/2006/10/2016 urina lysis , dipst ick Leukocytes Trace Not Available In-Offi ce Order Internal Use Only DO Not Attach Compendium DO Not Attach Compendium, Do Not Delete/merge, [id number] 06/10/2016 12:30:19 06/10/20 16 06/10/2016 urina lysis , dipst ick Nitrite negati ve Not Available In-Office Order Internal Use Only DO Not Attach Compendium DO Not Attach Compendium, Do Not Delete/merge, [id number] 06/10/2016 12:30:19 06/10/20 16 06/10/2016 urina lysis [...] 06/10/2016 urina lysis , dipst ick Specific [place] 1.015 Not Available In-Off ice Order Internal [...] 06/03/2016 urina lysis , dipst ick Specific [place] 1.020 Not Available In-Off ice Order Internal [...] 05/13/2016 urina lysis , dipst ick Specific [place] 1.030 Not Available In-Off ice Order Internal [...] 11/04/2015 urina lysis , dipst ick Specific [place] 1.030 Not Available In-Off ice Order Internal [...] 12/21/1912/20/2014 urina lysis , dipst ick Specific [place] 1.020 Not Available In-Off ice Order Internal [...] 12/10/2014 urina lysis , dipst ick Specific [place] 1.015 Not Available In-Off ice Order Internal [...] [facility] ([facility]) [address] [facility], [place], [address], 12/26/2014 11:41:55 12/21/19 15 12/25/2014 bacte rial vagin osis + vagin itis panel , vagin al bvab 2 LOW - 0 score Not Available [facility] ([facility]) [address] [facility], [place], [address], 12/26/2014 11:41:55 12/21/1912/25/2014 bacte rial vagin osis [...] [facility] ([facility]) [address] [facility], [place], [address], 12/26/2014 11:41:55 12/21/1912/25/2014 bacte rial vagin osis + vagin itis panel , vagin al kathy albicans, MANJIT NEGATI VE negati ve Not Available [facility] ([facility]) [address] [facility], [place], [address], 12/26/2014 11:41:55 12/21/19 15 12/25/2014 bacte rial [...] [facility] ([facility]) [address] [place], [address], 12/26/2014 11:41:55 12/21/1912/26/2014 bacte rial vagin osis + vagin itis panel , vagin al trich vag by MANJIT NEGATI VE negati ve Not Available [facility] ([facility]) [address] [place], [address], 12/26/2014 11:41:55 12/21/19 15 12/26/2014 bacte rial vagin osis + vagin itis panel , vagin al chlamydia trachomatis, MANJIT NEGATI VE negati ve Not Available [facility] ([facility]) [address] [place], [address], 12/26/2014 11:41:55 12/21/19 15 12/26/2014 bacte rial vagin osis + vagin itis panel , vagin al neisseria gonorrhoeae, MANJIT NEGATI VE negati ve Not Available [facility] ([facility]) [address] [place], [address], 12/26/2014 11:41:55 12/21/1912/24/2014 HSV (1+2) DNA, qual, PCR, unspe cifie d speci men hsv 1 MANJIT NEGATI VE negati ve Not Available [facility] ([facility]) [address] [place], [address], 12/26/2014 11:41:56 12/21/192015 HSV (1+2) DNA, qual, PCR, unspe cifie d speci men hsv 2 MANJIT NEGATI VE negati ve Not Available [facility] ([facility]) [address] [facility], [place], [address], 12/26/2014 11:41:56 12/21/19 15 12/23/2014 cultu re, [...] [facility] ([facility]) [address] [facility], [place], [address], 12/26/2014 11:41:56 12/21/19 15 12/21/2014 CBC w/ auto diff WBC 5.5 x10e3 /uL 3.4-10 .8 Not Available [facility] ([facility]) [address] [facility], [place], [address], 12/26/2014 16:34:31 12/21/19 15 12/21/2014 CBC w/ auto diff RBC 4.68 x10e6 /uL 3.77-5 .28 Not Available [facility] ([facility]) [address] [place], [address], 12/26/2014 16:34:31 12/21/19 15 12/21/2014 CBC w/ auto diff hemoglobin 13.9 g/dL 11.1-1 5.9 Not Available [facility] ([facility]) [address] [facility], [place], [address], 12/26/2014 16:34:31 12/21/19 15 12/21/2014 CBC w/ auto diff hematocrit 41.5 % 34.0-4 6.6 Not Available [facility] ([facility]) [address] [facility], [place], [address], 12/26/2014 16:34:31 12/21/19 15 12/21/2014 CBC w/ auto diff MCV 89 fL 79-97 Not Available [facility] ([facility]) [address] [facility], [place], [address], 12/26/2014 16:34:31 12/21/19 15 12/21/2014 CBC w/ auto diff MCH 29.7 pg 26.6-3 3.0 Not Available [facility] ([facility]) [address] [facility], [place], [address], 12/26/2014 16:34:31 12/21/19 15 12/21/2014 CBC w/ auto diff MCHC 33.5 g/dL 31.5-3 5.7 Not Available [facility] ([facility]) [address] [facility], [place], [address], 12/26/2014 16:34:31 12/21/19 15 12/21/2014 CBC w/ auto diff RDW 13.2 % 12.3-1 5.4 Not Available [facility] ([facility]) [address] [facility], [place], [address], 12/26/2014 16:34:31 12/21/19 15 12/21/2014 CBC w/ auto diff platelets 298 x10e3 /uL 150-37 9 Not Available [facility] ([facility]) [address] [facility], [place], [address], 12/26/2014 16:34:31 12/21/19 15 12/21/2014 CBC w/ auto diff neutrophils 55 % Not Available [facility] ([facility]) [address] [place], [address], 12/26/2014 16:34:31 12/21/19 15 12/21/2014 CBC w/ auto diff lymphs 33 % Not Available [facility] ([facility]) [address] [place], [address], 12/26/2014 16:34:31 12/21/1912/21/2014 CBC w/ auto diff monocytes 8 % Not Available [facility] ([facility]) [address] [place], [address], 12/26/2014 16:34:31 12/21/1912/21/2014 CBC w/ auto diff eos 3 % Not Available [facility] ([facility]) [address] [place], [address], 12/26/2014 16:34:31 12/21/19 15 12/21/2014 CBC w/ auto diff basos 1 % Not Available [facility] ([facility]) [address] [place], [address], 12/26/2014 16:34:31 12/21/1912/21/2014 CBC w/ auto diff neutrophils (absolute) 3.1 x10e3 /uL 1.4-7. 0 Not Available [facility] ([facility]) [address] [place] [address], [address], 12/26/2014 16:34:31 12/21/1912/21/2014 CBC w/ auto diff lymphs (absolute) 1.8 x10e3 /uL 0.7-3. 1 Not Available [facility] ([facility]) [address] [place] [address], [address], 12/26/2014 16:34:31 12/21/19 15 12/21/2014 CBC w/ auto diff monocytes(ab solute) 0.4 x10e3 /uL 0.1-0. 9 Not Available [facility] ([facility]) [address] [place], [address], 12/26/2014 16:34:31 12/21/19 15 12/21/2014 CBC w/ auto diff eos (absolute) 0.2 x10e3 /uL 0.0-0. 4 Not Available [facility] ([facility]) [address] [place], [address], 12/26/2014 16:34:31 12/21/19 15 12/21/2014 CBC w/ auto diff baso (absolute) 0.0 x10e3 /uL 0.0-0. 2 Not Available [facility] ([facility]) [address] [facility], [place], [address], 12/26/2014 16:34:31 12/21/19 15 12/21/2014 CBC w/ auto diff immature granulocytes 0 % Not Available [facility]) [address] [facility], [place], [address], 12/26/2014 16:34:31 12/21/1912/21/2014 CBC w/ auto diff immature grans (abs) 0.0 x10e3 /uL 0.0-0. 1 Not Available [facility] ([facility]) [address] [facility], [place], [address], 12/26/2014 16:34:31 12/21/1912/21/2014 CMP, serum or plasm a glucose, serum 99 mg/dL 65-99 Not Available [facility] ([facility]) [address] [place], [address], 12/26/2014 16:34:32 12/21/1912/21/2014 CMP, serum or plasm a BUN 13 mg/dL 6-24 Not Available [facility] ([facility]) [address] [place], [address], 12/26/2014 16:34:32 12/21/19 15 12/21/2014 CMP, serum or plasm a creatinine, serum 0.81 mg/dL 0.57-1 .00 Not Available [facility] ([facility]) [address] [facility] [place], [address], 12/26/2014 16:34:32 12/21/19 15 12/21/2014 CMP, serum or plasm a eGFR if nonafricn AM 85 mL/mi n/1.7 3 >59 Not Available [facility] ([facility]) [address] [facility] [place], [address], 12/26/2014 16:34:32 12/21/19 15 12/21/2014 CMP, serum or plasm a eGFR if africn AM 98 mL/mi n/1.7 3 >59 Not Available [facility] ([facility]) [address] [facility] [place], [address], 12/26/2014 16:34:32 12/21/19 15 12/21/2014 CMP, serum or plasm a BUN/creatini ne ratio 16 9-23 Not Available [facility] ([facility]) [address] [place], [address], 12/26/2014 16:34:32 12/21/19 15 12/21/2014 CMP, serum or plasm a sodium, serum 140 mmol/ L 134-14 4 Not Available [facility] ([facility]) [address] [place], [address], 12/26/2014 16:34:32 12/21/19 15 12/21/2014 CMP, serum or plasm a potassium, serum 4.3 mmol/ L 3.5-5. 2 Not Available [facility] ([facility]) [address] [place], [address], 12/26/2014 16:34:32 12/21/19 15 12/21/2014 CMP, serum or plasm a chloride, serum 97 mmol/ L 97-108 Not Available [facility] ([facility]) [address] [facility] [place], [address], 12/26/2014 16:34:32 12/21/1912/21/2014 CMP, serum or plasm a carbon dioxide, total 27 mmol/ L 18-29 Not Available [facility] ([facility]) [address] [facility] [place], [address], 12/26/2014 16:34:32 12/21/1912/21/2014 CMP, serum or plasm a calcium, serum 10.3 mg/dL 8.7-10 .2 high Not Available [facility] ([facility]) [address] [facility] [place], [address], 12/26/2014 16:34:32 12/21/1912/21/2014 CMP, serum or plasm a protein, total, serum 7.2 g/dL 6.0-8. 5 Not Available [facility] ([facility]) [address] [place], [address], 12/26/2014 16:34:32 12/21/1912/21/2014 CMP, serum or plasm a albumin, serum 4.7 g/dL 3.5-5. 5 Not Available [facility] ([facility]) [address] [facility] [place], [address], 12/26/2014 16:34:32 12/21/1912/21/2014 CMP, serum or plasm a globulin, total 2.5 g/dL 1.5-4. 5 Not Available [facility] ([facility]) [address] [place], [address], 12/26/2014 16:34:32 12/21/1912/21/2014 CMP, serum or plasm a A/G ratio 1.9 1.1-2. 5 Not Available [facility] ([facility]) [address] [place], [address], 12/26/2014 16:34:32 12/21/19 15 12/21/2014 CMP, serum or plasm a bilirubin, total 0.5 mg/dL 0.0-1. 2 Not Available [facility] ([facility]) [address] [place], [address], 12/26/2014 16:34:32 12/21/19 15 12/21/2014 CMP, serum or plasm a alkaline phosphatase, S 80 IU/L 39-117 Not Available [facility] ([facility]) [address] [place], [address], 12/26/2014 16:34:32 12/21/19 15 12/21/2014 CMP, serum or plasm a AST (SGOT) 26 IU/L 0-40 Not Available [facility] ([facility]) [address] [place] [address], [address], 12/26/2014 16:34:32 12/21/1912/21/2014 CMP, serum or plasm a ALT (SGPT) 25 IU/L 0-32 Not Available [facility] ([facility]) [address] [place], [address], 12/26/2014 16:34:32 12/21/19 15 12/20/2014 yfn (risk [...] [facility] ([facility]) [address] [place], [address], 12/26/2014 16:34:32 12/21/1912/20/2014 yfn (risk of ovari [...] [facility] ([facility]) [address] [facility], [place], [address], 12/26/2014 16:34:32 12/21/19 15 12/20/2014 yfn (risk [...] [facility] ([facility]) [address] [facility], [place], [address], 12/26/2014 16:34:32 12/21/19 15 12/24/2014 yfn (risk of ovari an malig ezio algor ithm score ), serum (lizzie enopa usal) he4 45 pmol/ L 0-150 FUJIR EBIO EIA METHO DOLOG Y . CA125 VALUE S OBTAI NELLY WITH DIFFE RENT ASSAY METHO DS OR KITS CANNO T BE USED INTER LARSON EABLY . Not Available [facility] ([facility]) [address] [facility], [place], [address], 12/26/2014 16:34:32 12/21/19 12/26/2014 yfn (risk of ovari an malig ezio algor ithm score ), serum (lizzie enopa usal) cancer antigen 125 (Ca125) 16.2 U/mL 0.0-35 .0 ABBOT T CMIA METHO DOLOG Y Not Available [facility] ([facility]) [address] [place], [address], 12/26/2014 16:34:32 12/21/1912/26/2014 yfn (risk of ovari an malig ezio algor ithm score ), serum (lizzie enopa usal) premenopausa l yfn 0.59 see below Not Available [facility] ([facility]) [address] [place], [address], 12/26/2014 16:34:32 12/21/1912/26/2014 yfn (risk of ovari an malig ezio algor ithm score ), serum (lizzie enopa usal) postmenopaus al yfn 1.10 see below Not Available [facility] ([facility]) [address] [place], [address], 12/26/2014 16:34:32 12/21/1912/21/2014 HbA1c (hemo globi n A1c), blood hemoglobin A1C 5.3 % 4.8-5. 6 . INCRE ASED RISK FOR DIABE SHON: 5.7 - 6.4 DIABE SHON: >6.4 GLYCE HARJINDER CONTR OL FOR ADULT S WITH DIABE SHON: <7.0 Not Available [facility] ([facility]) [address] [place], [address], 12/26/2014 16:34:33 12/21/1912/21/2014 ca 125, serum cancer antigen (Ca) 125 15.6 U/mL 0.0-34 .0 FREDY ECLIA METHO DOLOG Y Not Available [facility] ([facility]) [address] [place], [address], 12/26/2014 16:34:34 12/21/1912/21/2014 FSH (foll icle- stimu latin g hormo ne), serum FSH 88.6 mIU/m L FOLLI CULAR PHASE 3.5 - 12.5 OVULA TION PHASE 4.7 - 21.5 LUTEA L PHASE 1.7 - 7.7 POSTM ENOPA USAL 25.8 - 134.8 Not Available [facility] ([facility]) [address] [place], [address], 12/26/2014 16:34:34 12/21/19 15 12/21/2014 estra diol, [...] [facility] ([facility]) [address] [place], [address], 12/26/2014 16:34:35 12/21/1912/21/2014 TSH, ultra -sens itive , serum TSH 1.140 uIU/m L 0.450- 4.500 Not Available [facility] ([facility]) [address] [place], [address], 12/26/2014 16:34:36 12/21/1912/21/2014 proge stero ne, serum [...] [facility] ([facility]) [address] [place], [address], 12/26/2014 16:34:36 11/04/19 16 11/05/2015 TSH + free T4, serum TSH 1.100 uIU/m L 0.450- 4.500 Not Available [facility] ([facility]) [address] [place], [address], 11/05/2015 07:22:45 11/04/19 16 11/05/2015 TSH + free T4, serum T4,free(dire ct) 1.22 NG/dL 0.82-1 .77 Not Available [facility] ([facility]) [address] [place], [address], 11/05/2015 07:22:45 11/04/19 16 11/05/2015 CBC w/ auto diff WBC 5.5 x10e3 /uL 3.4-10 .8 Not Available [facility] ([facility]) [address] [place], [address], 11/05/2015 07:22:45 11/04/19 16 11/05/2015 CBC w/ auto diff RBC 4.75 x10e6 /uL 3.77-5 .28 Not Available [facility] ([facility]) [address] [place], [address], 11/05/2015 07:22:45 11/04/19 16 11/05/2015 CBC w/ auto diff hemoglobin 13.9 g/dL 11.1-1 5.9 Not Available [facility] ([facility]) [address] [place], [address], 11/05/2015 07:22:45 11/04/19 16 11/05/2015 CBC w/ auto diff hematocrit 40.8 % 34.0-4 6.6 Not Available [facility] ([facility]) [address] [place], [address], 11/05/2015 07:22:45 11/04/19 16 11/05/2015 CBC w/ auto diff MCV 86 fL 79-97 Not Available [facility] ([facility]) [address] [facility], [place], [address], 11/05/2015 07:22:45 11/04/19 16 11/05/2015 CBC w/ auto diff MCH 29.3 pg 26.6-3 3.0 Not Available [facility] ([facility]) [address] [facility], [place], [address], 11/05/2015 07:22:45 11/04/19 16 11/05/2015 CBC w/ auto diff MCHC 34.1 g/dL 31.5-3 5.7 Not Available [facility] ([facility]) [address] [facility], [place], [address], 11/05/2015 07:22:45 11/04/19 16 11/05/2015 CBC w/ auto diff RDW 13.0 % 12.3-1 5.4 Not Available [facility] ([facility]) [address] [facility], [place], [address], 11/05/2015 07:22:45 11/04/19 16 11/05/2015 CBC w/ auto diff platelets 408 x10e3 /uL 150-37 9 above high normal Not Available [facility] ([facility]) [address] [facility], [place], [address], 11/05/2015 07:22:45 11/04/19 16 11/05/2015 CBC w/ auto diff neutrophils 51 % Not Available [facility] ([facility]) [address] [facility], [place], [address], 11/05/2015 07:22:45 11/04/19 16 11/05/2015 CBC w/ auto diff lymphs 40 % Not Available [facility] ([facility]) [address] [facility], [place], [address], 11/05/2015 07:22:45 11/04/19 16 11/05/2015 CBC w/ auto diff monocytes 7 % Not Available [facility] ([facility]) [address] [place], [address], 11/05/2015 07:22:45 11/04/19 16 11/05/2015 CBC w/ auto diff eos 2 % Not Available [facility] ([facility]) [address] [place], [address], 11/05/2015 07:22:45 11/04/19 16 11/05/2015 CBC w/ auto diff basos 0 % Not Available [facility] ([facility]) [address] [place], [address], 11/05/2015 07:22:45 11/04/19 16 11/05/2015 CBC w/ auto diff immature cells [employer] Not Available [facility] ([facility]) [address] [place], [address], 11/05/2015 07:22:45 11/04/19 16 11/05/2015 CBC w/ auto diff neutrophils (absolute) 2.8 x10e3 /uL 1.4-7. 0 Not Available [facility] ([facility]) [address] [place], [address], 11/05/2015 07:22:45 11/04/19 16 11/05/2015 CBC w/ auto diff lymphs (absolute) 2.2 x10e3 /uL 0.7-3. 1 Not Available [facility] ([facility]) [address] [place], [address], 11/05/2015 07:22:45 11/04/19 16 11/05/2015 CBC w/ auto diff monocytes(ab solute) 0.4 x10e3 /uL 0.1-0. 9 Not Available [facility] ([facility]) [address] [place], [address], 11/05/2015 07:22:45 11/04/19 16 11/05/2015 CBC w/ auto diff eos (absolute) 0.1 x10e3 /uL 0.0-0. 4 Not Available [facility] ([facility]) [address] [place], [address], 11/05/2015 07:22:45 11/04/19 16 11/05/2015 CBC w/ auto diff baso (absolute) 0.0 x10e3 /uL 0.0-0. 2 Not Available [facility] ([facility]) [address] [facility], [place], [address], 11/05/2015 07:22:45 11/04/19 16 11/05/2015 CBC w/ auto diff immature granulocytes 0 % Not Available [facility] ([facility]) [address] [place], [address], 11/05/2015 07:22:45 11/04/19 16 11/05/2015 CBC w/ auto diff immature grans (abs) 0.0 x10e3 /uL 0.0-0. 1 Not Available [facility] ([facility]) [address] [facility], [place], [address], 11/05/2015 07:22:45 11/04/19 16 11/05/2015 CBC w/ auto diff NRBC [employer] Not Available [facility] ([facility]) [address] [place], [address], 11/05/2015 07:22:45 11/04/19 16 11/05/2015 CBC w/ auto diff hematology comments: [employer] Not Available [facility] ([facility]) [address] [place], [address], 11/05/2015 07:22:45 11/04/19 16 11/05/2015 CMP, serum or plasm a glucose, serum 108 mg/dL 65-99 above high normal Not Available [facility] ([facility]) [address] [place], [address], 11/05/2015 07:22:46 11/04/19 16 11/05/2015 CMP, serum or plasm a BUN 11 mg/dL 6-24 Not Available [facility] ([facility]) [address] [place], [address], 11/05/2015 07:22:46 11/04/19 16 11/05/2015 CMP, serum or plasm a creatinine, serum 0.76 mg/dL 0.57-1 .00 Not Available [facility] ([facility]) [address] [place], [address], 11/05/2015 07:22:46 11/04/19 16 11/05/2015 CMP, serum or plasm a eGFR if nonafricn AM 91 mL/mi n/1.7 3 >59 Not Available [facility] ([facility]) [address] [place], [address], 11/05/2015 07:22:46 11/04/19 16 11/05/2015 CMP, serum or plasm a eGFR if africn AM 105 mL/mi n/1.7 3 >59 Not Available [facility] ([facility]) [address] [place], [address], 11/05/2015 07:22:46 11/04/19 16 11/05/2015 CMP, serum or plasm a BUN/creatini ne ratio 14 9-23 Not Available [facility] ([facility]) [address] [place], [address], 11/05/2015 07:22:46 11/04/19 16 11/05/2015 CMP, serum or plasm a sodium, serum 143 mmol/ L 134-14 4 Not Available [facility] ([facility]) [address] [place], [address], 11/05/2015 07:22:46 11/04/19 16 11/05/2015 CMP, serum or plasm a potassium, serum 4.5 mmol/ L 3.5-5. 2 Not Available [facility] ([facility]) [address] [place], [address], 11/05/2015 07:22:46 11/04/19 16 11/05/2015 CMP, serum or plasm a chloride, serum 102 mmol/ L 97-108 Not Available [facility] ([facility]) [address] [facility] [place], [address], 11/05/2015 07:22:46 11/04/19 16 11/05/2015 CMP, serum or plasm a carbon dioxide, total 25 mmol/ L 18-29 Not Available [facility] ([facility]) [address] [place], [address], 11/05/2015 07:22:46 11/04/19 16 11/05/2015 CMP, serum or plasm a calcium, serum 9.9 mg/dL 8.7-10 .2 Not Available [facility] ([facility]) [address] [place], [address], 11/05/2015 07:22:46 11/04/1911/05/2015 CMP, serum or plasm a protein, total, serum 7.4 g/dL 6.0-8. 5 Not Available [facility] ([facility]) [address] [place], [address], 11/05/2015 07:22:46 11/04/19 16 11/05/2015 CMP, serum or plasm a albumin, serum 4.6 g/dL 3.5-5. 5 Not Available [facility] ([facility]) [address] [place], [address], 11/05/2015 07:22:46 11/04/1911/05/2015 CMP, serum or plasm a globulin, total 2.8 g/dL 1.5-4. 5 Not Available [facility] ([facility]) [address] [place], [address], 11/05/2015 07:22:46 11/04/1911/05/2015 CMP, serum or plasm a A/G ratio 1.6 1.1-2. 5 Not Available [facility] ([facility]) [address] [place], [address], 11/05/2015 07:22:46 11/04/19 16 11/05/2015 CMP, serum or plasm a bilirubin, total 0.3 mg/dL 0.0-1. 2 Not Available [facility] ([facility]) [address] [place], [address], 11/05/2015 07:22:46 11/04/19 16 11/05/2015 CMP, serum or plasm a alkaline phosphatase, S 84 IU/L 39-117 Not Available [facility] ([facility]) [address] [place], [address], 11/05/2015 07:22:46 11/04/19 16 11/05/2015 CMP, serum or plasm a AST (SGOT) 24 IU/L 0-40 Not Available [facility] ([facility]) [address] [place], [address], 11/05/2015 07:22:46 11/04/19 16 11/05/2015 CMP, serum or plasm a ALT (SGPT) 28 IU/L 0-32 Not Available [facility] ([facility]) [address] [place], [address], 11/05/2015 07:22:46 11/04/19 16 11/05/2015 HbA1c (hemo globi n A1c), blood hemoglobin A1C 5.5 % 4.8-5. 6 PRE-D IABET ES: 5.7 - 6.4 DIABE SHON: >6.4 GLYCE HARJINDER CONTR OL FOR ADULT S WITH DIABE SHON: <7.0 Not Available [facility] ([facility]) [address] [place], [address], 11/05/2015 07:22:47 11/04/19 16 11/05/2015 FSH (foll icle- stimu latin g hormo ne), serum FSH 102.7 mIU/m L FOLLI CULAR PHASE 3.5 - 12.5 OVULA TION PHASE 4.7 - 21.5 LUTEA L PHASE 1.7 - 7.7 POSTM ENOPA USAL 25.8 - 134.8 Not Available [facility] ([facility]) [address] [facility], [place], [address], 11/05/2015 07:22:47 11/04/19 16 11/05/2015 estra diol, [...] [facility] ([facility]) [address] [facility], [place], [address], 11/05/2015 07:22:48 11/04/19 16 11/05/2015 proge stero [...] [facility] ([facility]) [address] [facility], [place], [address], 11/05/2015 07:22:49 11/04/19 16 11/06/2015 cultu re, urine urine culture, routine FINAL REPORT Not Available [facility] ([facility]) [address] [facility], [place], [address], 11/06/2015 06:12:59 11/04/19 16 11/06/2015 cultu re, urine result 1 FORD Gambino MIXED UROGE NITAL CRISTI 10,00 0-25, 000 COLON Y FORMI NG UNITS PER ML Not Available [facility] ([facility]) [address] [place], [address], 11/06/2015 06:12:59 11/04/19 16 11/05/2015 pap, IG + HPV, cervi alon diagnosis: FORD VALADEZ FOR INTRA EPITH ELIAL LESIO N AND MALADRIEL EZIO . Not Available [facility] ([facility]) [address] [place], [address], 11/07/2015 16:41:55 11/04/19 16 11/05/2015 pap, IG + HPV, cervi alon specimen adequacy: FORD Gambino SATIS FACTO RY FOR EVALU ATION . ENDOC ERVIC AL AND/O R SQUAM OUS METAP LASTI C CELLS (ENDO CERVI ALON COMPO NENT) ARE PRESE NT. Not Available [facility] ([facility]) [address] [place], [address], 11/07/2015 16:41:55 11/04/19 16 11/05/2015 pap, IG + HPV, cervi alon clinician provided ICD10: FORD Gambino Z01.4 19 Not Available [facility] ([facility]) [address] [place], [address], 11/07/2015 16:41:55 11/04/19 16 11/05/2015 pap, IG + HPV, cervi alon performed by: FORD GIVENS , CYTOT KEYANA Gambino (ASCP ) Not Available [facility] ([facility]) [address] [place], [address], 11/07/2015 16:41:55 11/04/19 16 11/05/2015 pap, IG + HPV, cervi alon . . Not Available [facility] ([facility]) [address] [place], [address], 11/07/2015 16:41:55 11/04/19 16 11/05/2015 pap, IG [...] [facility] ([facility]) [address] [place], [address], 11/07/2015 16:41:55 11/04/19 16 11/05/2015 pap, IG + HPV, cervi alon test methodology: COMMEN T THIS LIQUI D BASED THINP REP(R ) PAP TEST WAS SCREE NELLY WITH THE USE OF AN IMAGE GUIDE Diana Umana Not Available [facility] ([facility]) [address] [facility], [place], [address], 11/07/2015 16:41:55 11/04/19 16 11/07/2015 pap, IG + HPV, cervi alon HPV aptima NEGATI VE negati ve THIS TEST DETEC TS FOURT EEN HIGH- RISK HPV TYPES (16/1 8/31/ 33/35 /39/4 5/ 51/52 /56/5 8/59/ 66/68 ) WITHO UT DIFFE RENTI ATION . Not Available [facility] ([facility]) [address] [place], [address], 11/07/2015 16:41:55 11/04/19 16 11/06/2015 bacte rial vagin osis + vagin itis panel , vagin al trich vag by MANJIT NEGATI VE negati ve Not Available [facility] ([facility]) [address] [place], [address], 11/08/2015 06:11:53 11/04/19 16 11/07/2015 bacte rial vagin osis + vagin itis panel , vagin al atopobium vaginae LOW - 0 score Not Available [facility] ([facility]) [address] [place], [address], 11/08/2015 06:11:53 11/04/19 16 11/07/2015 bacte rial vagin osis + vagin itis panel , vagin al bvab 2 LOW - 0 score Not Available [facility] ([facility]) [address] [place], [address], 11/08/2015 06:11:53 11/04/19 16 11/07/2015 bacte rial [...] [facility] ([facility]) [address] [facility], [place], [address], 11/08/2015 06:11:53 11/04/19 16 11/07/2015 bacte rial vagin osis + vagin itis panel , vagin al kathy albicans, MANJIT NEGATI VE negati ve Not Available [facility] ([facility]) [address] [facility], [place], [address], 11/08/2015 06:11:53 11/04/19 16 11/07/2015 bacte rial [...] [facility] ([facility]) [address] [place], [address], 11/08/2015 06:11:53 11/04/19 16 11/07/2015 bacte rial vagin osis + vagin itis panel , vagin al chlamydia trachomatis, MANJIT NEGATI VE negati ve Not Available [facility] ([facility]) [address] [place], [address], 11/08/2015 06:11:53 11/04/19 16 11/07/2015 bacte rial vagin osis + vagin itis panel , vagin al neisseria gonorrhoeae, MANJIT NEGATI VE negati ve Not Available [facility] ([facility]) [address] [place], [address], 11/08/2015 06:11:53 11/04/19 16 11/07/2015 STI panel kathy albicans, MANJIT TNP DUPLI CLAUDIA PROCE DURE ORDER ED. Not Available [facility] ([facility]) [address] [place], [address], 11/08/2015 06:11:54 11/04/19 16 11/07/2015 STI panel kathy glabrata, MANJIT TNP DUPLI CLAUDIA PROCE DURE ORDER ED. Not Available [facility] ([facility]) [address] [facility], [place], [address], 11/08/2015 06:11:54 11/04/19 16 11/07/2015 STI panel kathy tropicalis, MANJIT NEGATI VE negati ve Not Available [facility] ([facility]) [address] [place], [address], 11/08/2015 06:11:54 11/04/19 16 11/07/2015 STI panel kathy parapsilosis , MANJIT NEGATI VE negati ve Not Available [facility] ([facility]) [address] [facility], [place], [address], 11/08/2015 06:11:54 11/04/19 16 11/07/2015 STI panel kathy lusitaniae, MANJIT NEGATI VE negati ve Not Available [facility] ([facility]) [address] [place], [address], 11/08/2015 06:11:54 11/04/19 16 11/07/2015 STI panel [...] [facility] ([facility]) [address] [facility], [place], [address], 11/08/2015 06:11:54 11/04/19 16 11/06/2015 HSV (1+2) DNA, qual, PCR, unspe cifie d speci men hsv 1 MANJIT NEGATI VE negati ve Not Available [facility] ([facility]) [address] [place], [address], 11/08/2015 06:11:54 11/04/19 16 11/06/2015 HSV (1+2) DNA, qual, PCR, unspe cifie d speci men hsv 2 MANJIT NEGATI VE negati ve Not Available [facility] ([facility]) [address] [place], [address], 11/08/2015 06:11:54 12/04/19 16 12/04/2015 yfn (risk [...] [facility] ([facility]) [address] [place], [address], 12/06/2015 16:25:24 12/04/19 16 12/04/2015 yfn (risk [...] [facility] ([facility]) [address] [place], [address], 12/06/2015 16:25:24 12/04/19 16 12/04/2015 yfn (risk [...] [facility] ([facility]) [address] [place], [address], 12/06/2015 16:25:24 12/04/19 16 12/06/2015 yfn (risk of ovari an malig ezio algor ithm score ), serum (lizzie enopa usal) cancer antigen 125 (Ca125) 16.6 U/mL 0.0-35 .0 ABBOT T CMIA METHO DOLOG Y Not Available [facility] ([facility]) [address] [facility], [place], [address], 12/06/2015 16:25:24 12/04/19 16 12/06/2015 yfn (risk of ovari an malig ezio algor ithm score ), serum (lizzie enopa usal) he4 42 pmol/ L 0-150 FUJIR EBIO EIA METHO DOLOG Y CA125 VALUE S OBTAI NELLY WITH DIFFE RENT ASSAY METHO DS OR KITS CANNO T BE USED INTER LARSON EABLY . Not Available [facility] ([facility]) [address] [facility], [place], [address], 12/06/2015 16:25:24 12/04/19 16 12/06/2015 yfn (risk of ovari an malig ezio algor ithm score ), serum (lizzie enopa usal) premenopausa l yfn 0.51 see below Not Available [facility] ([facility]) [address] [place], [address], 12/06/2015 16:25:24 12/04/19 16 12/06/2015 yfn (risk of ovari an malig ezio algor ithm score ), serum (lizzie enopa usal) postmenopaus al yfn 1.05 see below Not Available [facility] ([facility]) [address] [facility], [place], [address], 12/06/2015 16:25:24 05/13/20 16 05/15/2016 bacte rial vagin osis + vagin itis panel , vagin al trich vag by MANJIT NEGATI VE negati ve Not Available [facility] ([facility]) [address] [facility], [place], [address], 05/17/2016 06:04:50 05/13/20 16 05/15/2016 bacte rial vagin osis + vagin itis panel , vagin al chlamydia trachomatis, MANJIT NEGATI VE negati ve Not Available [facility] ([facility]) [address] [facility], [place], [address], 05/17/2016 06:04:50 05/13/20 16 05/15/2016 bacte rial vagin osis + vagin itis panel , vagin al neisseria gonorrhoeae, MANJIT NEGATI VE negati ve Not Available [facility] ([facility]) [address] [place], [address], 05/17/2016 06:04:50 05/13/20 16 05/16/2016 bacte rial vagin osis + vagin itis panel , vagin al kathy albicans, MANJIT NEGATI VE negati ve Not Available [facility] ([facility]) [address] [place], [address], 05/17/2016 06:04:50 05/13/20 16 05/16/2016 bacte rial [...] [facility] ([facility]) [address] [facility], [place], [address], 05/17/2016 06:04:50 05/13/20 16 05/17/2016 bacte rial vagin osis + vagin itis panel , vagin al atopobium vaginae LOW - 0 score Not Available [facility] ([facility]) [address] [facility], [place], [address], 05/17/2016 06:04:50 05/13/20 16 05/17/2016 bacte rial vagin osis + vagin itis panel , vagin al bvab 2 LOW - 0 score Not Available [facility] ([facility]) [address] [facility], [place], [address], 05/17/2016 06:04:50 05/13/20 16 05/17/2016 bacte rial [...] E DANIELA CTERI STICS DETER MINED BY [employer]. IT HAS NOT BEEN CLEAR ED OR APPRO KARSON BY THE FOOD AND DRUG ADMIN ISTRA TION. THE FDA HAS DETER MINED THAT SUCH CLEAR ANCE OR APPRO GABRIELLA IS NOT NECES DARÍO. Not Available [facility] ([facility]) [address] [facility], [place], [address], 05/17/2016 06:04:50 12/13/19 15 12/12/2014 ultra sound , pelvi c trans abdom inal No observ ation record ed. [facility] (Imaging) [address] [place], [address], 12/20/2014 19:01:30 09/04/20 15 09/02/2015 MAMMO , diagn ostic , digit al, bilat eral No observ ation record ed. [email or web address] [facility] [address], [place], [address], 05/13/2016 13:15:22 12/03/19 16 11/04/2015 CT, abdom en + pelvi s, w/ contr ast No observ ation record ed. [address] [facility] [address] [facility], [place], [address], 05/13/2016 16:18:12 12/06/19 16 12/06/2015 ultra sound , pelvi c trans abdom inal & trans vagin al No observ ation record ed. [address] ([employer]) [address] [place], [address], 05/13/2016 16:18:12 05/15/20 16 05/15/2016 US, trans vagin al No observ ation record ed. [email or web address] [place] [address] [address] [place], [address], 06/02/2016 09:44:41 Result Notes None recorded. Problems Name Problem SNOMED Code Status Onset Date Resolution Date Notes Provider Name and Address Organization Details Recorded Time Endometriosi s of uterus 27379749 Active Cosme Gloria null, [place] - [facility] 6 13:25:11 Menopausal syndrome 350695700 Active Valerie Quiroz MD Attn: Accounting, [address] [facility], [place], [address], [facility] - [facility] 6 18:44:51 Dermatophyto sis of the body Active Valerie Quiroz MD Attn: Accounting, [address] [place], [place], [address] [place] [address], [place] - [facility] 6 18:44:51 Candidiasis 60706492 Active Valerie Quiroz MD Attn: Accounting, [address] [place], [place], [address] [place] [address], [facility] - [facility] 6 18:44:51 Headache 64730798 Active Valerie Quiroz MD Attn: Accounting, [address] [place], [place], [address] [place] [address], [place] - [facility] 6 18:44:51 Irritable bowel syndrome 29061436 Active Valerie Quiroz MD Attn: Accounting, [address] [place], [place], [address] [place] [address], [facility] - [facility] 6 18:44:51 Left sided abdominal pain 163947571 Active Valerie Quiroz MD Attn: Accounting, [address] [place], [place], [address] [place] [address], [facility] - [facility] 6 18:44:51 Chronic pelvic pain of female 013639507 Active Natanael Valentino null, [place] - [facility] 6 10:54:30 Vaginitis 90864702 Active Valerie Quiroz MD Attn: Accounting, [address] [place], [place], [address] [place] [address], [place] - [facility] 6 18:44:51 Uterine leiomyoma 89498461 Active Cosme Ju[place] [facility] 6 13:25:11 Endometrium thickened 666360093 Active Cosme [place] [facility] 13:25:11 Problem Notes None recorded. Procedures Surgical History Date Name Laterality Status Provider Name and Address Organization Details Recorded Time 11/04/19 16 Date of Last Pap Smear completed Laure Pedraza [place] - [facility] 05/13/2016 15:06:51 09/13/19 09 Cholecystectomy completed Brenda Van MA [place] - [facility] 10/30/2014 10:26:54 09/13/19 09 Dilation and Curettage completed Brenda Van [place] - [facility] 12/10/2014 12:17:22 12/21/19 08 Caesarean Section completed Laure Pedraza [facility] 12/20/2014 15:28:58 09/13/19 03 Orthopedic Surgery completed Brenda Van [facility] 12/10/2014 12:17:22 09/13/19 03 Breast Surgery completed Brenda Van [facility] 12/10/2014 12:23:51 Laparoscopy completed Brenda Van [facility] 12/10/2014 12:17:22 Imaging Results Imaging Date Name Status LastModified by Organization Details LastModified Time 12/12/2014 ultrasound, pelvic transabdominal completed [facility] (Imaging) [address] [place], [address], 12/20/2014 19:01:30 09/02/2015 MAMMO, diagnostic, digital, bilateral completed [email or web address] [facility] [address], [address], 05/13/2016 13:15:22 11/04/2015 CT, abdomen + pelvis, w/ contrast completed [address] [facility] [address] , [place], [address], 05/13/2016 16:18:12 12/06/2015 ultrasound, pelvic transabdominal & transvaginal completed [address] ([employer] [facility]) [address] [place], [address], 05/13/2016 16:18:12 05/15/2016 US, transvaginal completed [address] [place], [address], 06/02/2016 09:44:41 Procedure Notes None recorded. Medical Equipment None Reported. Allergies Allergen ID Allergen Name Allergen Category Reaction Reaction Severity Criticality Documentation Date Start Date Code Code System Note Provider Name and Address Organization Details Recorded Time 40482 codeine medicatio n itching moderate Not available 10/30/2014 2670 RxNorm rash Brenda DANIELA Van null, [place] - [facility] 5 12:14:39 Medications Name Sig Start Date Stop Date [...] Details Last Updated DateTime 11/04/2015 177.8 cm 46031.28 926 g 28.4 kg/m2 130 mm[Hg] 92 mm[Hg] Rebecca Slater MA [facility] 6 15:13:22 Date Recorded Body weight Body height Body mass index (BMI) Systolic blood pressure Diastolic blood pressure Provider Name and Address Organization Details Last Updated DateTime 05/13/2016 29030.88 163 g 177.8 cm 28.6 kg/m2 128 mm[Hg] 86 mm[Hg] Laure Pedraza MA [facility] 6 15:05:42 Date Recorded Body height Body mass index (BMI) Body weight Systolic blood pressure Diastolic blood pressure Provider Name and Address Organization Details Last Updated DateTime 06/03/2016 177.8 cm 28.7 kg/m2 17252.47 4 g 118 mm[Hg] 82 mm[Hg] Rebecca Slater MA [facility] 6 10:36:57 Date Recorded Body height Body weight Body mass index (BMI) Systolic blood pressure Diastolic blood pressure Provider Name and Address Organization Details Last Updated DateTime 06/10/2016 177.8 cm 18507.88 163 g 28.6 kg/m2 130 mm[Hg] 92 mm[Hg] Rebecca Slater MA [facility] 6 12:34:41 Date Recorded Body height Body mass index (BMI) Body weight Systolic blood pressure Diastolic blood pressure Provider Name and Address Organization Details Last Updated DateTime 12/20/2014 177.8 cm 28.7 kg/m2 51375.47 4 g 124 mm[Hg] 88 mm[Hg] Laure Pedraza MA [facility] 5 15:31:11 Social History Question Answer Notes LastModified by Organizat ion Details LastModified Time Tobacco Smoking Status Never Smoker DANIELA Carrillo, [facility] 10/30/2014 10:26:55 Do You Have An Advance Directive? No Information not available 10/30/2014 What Is Your Level Of Alcohol Consumption? None Information not available 10/30/2014 Is Blood Transfusion Acceptable In An Emergency? Yes [email or web address] Information not available 10/30/2014 What Is Your Level Of Caffeine Consumption? None [email or web address] Information not available 10/30/2014 How Much Tobacco Do You Chew? None [email or web address] Information not available 10/30/2014 Are You Currently Employed? No Information not available 10/30/2014 What Type Of Diet Are You Following? 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 With Others Information not available 10/30/2014 How Many Children Do You Have? 1 [email or web address] Information not available 10/30/2014 Performs Monthly Self-breast Exam? Yes Information no t available 10/30/2014 Do You Use Protection During Sex? Usually [email or web address] Information not available 10/30/2014 What Is Your Relationship Status? [email or web address] Information not available 10/30/2014 Seat Belts Used Routinely Yes [email or web address] Information not available 10/30/2014 Are You Sexually Active? Yes [email or web address] Information not available 10/30/2014 General Stress Level High [email or web address] Information not available 10/30/2014 Do You Use Sunscreen Routinely? Yes [email or web address] Information not available 10/30/2014 Sex: Unknown Functional Status Question Answer Note LastModified by Organizat ion Details LastModified Time What is your exercise level? Occasional [email or web address] Information not available 10/30/2014 Mental Status None [...] Disorder N Colon Polyps N Heart Attack ([place]) N Diabetes N Cardiomyopathy N Blood Transfusions [...] SNOMED-CT Code Diagnosis ICD10 Code Diagnosis Note [id number] [facility] [address] [place] [phone] 10/30/2014 09:49:37 10/30/2014 10:56:31 Gynecologic examination 89893064 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 463271730 [id number] Cosme Gloria MD [facility] (BUSINESS SEGMENT MANAGER) [address] [place] [phone] 12/10/2014 11:20:55 12/10/2014 13:01:08 Gynecologic examination 03209517 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 682998950 Streptococcus carrier 689675433 Endometrio sis of uterus [id number] Cosme Gloria MD [facility] (BUSINESS SEGMENT MANAGER) [address] [place] [address] [phone] 0 12/20/2014 14:54:18 12/23/2014 09:31:47 Streptococcus carrier [id number] Menopausal syndrome 745219226 Dermatophy tosis of the body 565319165 Candidiasis 62804987 [id number] [facility] [address] [place] [address] [phone] 0 11/04/2015 14:31:13 11/04/2015 17:25:17 Gynecologic examination 10945066 Z01.419 Irritable bowel syndrome 17772395 K58.9 Menopausal syndrome 1237 37413 N95.9 Colitis 54302647 K52.9 [id number] MD Liz Guzman (BUSINESS SEGMENT MANAGER) [address] [place] [address] [phone] 0 05/13/2016 13:52:53 05/14/2016 10:32:25 Candidiasis 45060783 B37.9 Chronic pe lvic pain of female 758460967 R10.2 Vaginitis 56058017 N76.0 [id number] MD Liz Rey (BUSINESS SEGMENT MANAGER) [address] [place] [address] [phone] 0 06/03/2016 09:47:51 06/05/2016 11:46:20 Uterine leiomyoma 85528134 D25.9 Endometrium thickened 44 7927189 R93.8 [id number] MD Liz Long (BUSINESS SEGMENT MANAGER) [address] [place] [address] [phone] 0 06/10/2016 11:13:23 06/11/2016 17:50:59 Endometrium thickened 179898242 R93.8 Chronic pe lvic pain of female 790338913 R10.2 Uterine leiomyoma 262480 05 D25.9 Health Concerns Section Related Observation LastModified by Organization Detai ls LastModified Time None Recorded Concern Status LastModified by Organization Details LastModified Time None Recorded Advance Directives Directive N: Payers Encounter Date Sequence Insurance Name Policy Number Policy Mohamud Covered Member ID Mohamud Member ID Guarantor Name 12/20/2014 1 [facility] Alana Clau [id number] Alana Clau 11/04/2015 1 [place] [id number] Catrachito Olguin Jr [id number] Alana Clau 05/13/2016 1 [place] [id number] Catrachito Olguin Jr [id number] Alana Clau 06/03/2016 1 [place] [id number] Catrachito Olguin Jr [id number] Alana Clau 06/10/2016 1 [place] [id number] Catrachito Olguin Jr [id number] Alana Clau Notes Date Note Type [...] 39; Followed with yearly pap smears Cosme blum [facility] 11/04/2015 17:15:28 06/03/2016 text/html HERE FOR TEST RESULTS. She said she had an episode of post menopausal bleeding 2 years ago and endometrial biopsy was negative as per patient. Denies any bleeding since then Valerie Quiroz MD Attn: Accounting,[address] [place], [address], [facility] 06/03/2016 18:49:56 06/10/2016 text/html Presenting for consultation with Dr. Gloria, Re: endometrial thickening and pelvic pain. I am standing in for Dr. Glorai as he was called away for Emergency. Natanael Valentino viktoria [facility] 06/11/2016 10:54:34 OBGyn Episode Ob Episode Information Episode Created Date Number of Fetuses Patient Bloodtype Patient rh Status Prepregnancy Weight lbs Domestic Partner Domestic Partner Phone Father Name Car Sealer Status 10/30/19 15 1 CLOSED Fetus Data First Name Last Name Admitted to NICU Weight (g) Sex Living Outcome Pediatric Complications Fetus ID Race Codes Race Delivery Type 3628.73 6 F Full Term 50569 Ole Calculation Initial Ole Date Initial Exam [...] Complications Tubal Sterilization Discharge Date Comments 8 [facility] anil [place] Discharge Information Feeding Method Contraceptive Method Maternal HG B and HCT Levels
--- OUTSIDE RECORDS SUMMARY | 2025-01-16 10:44 | XMS_ITS | Clinical Summary ---
Author Organization [facility] [employer] Address [address] [place] [address] Care Team Providers Care Assistant Football Coach Name Role Phone Loni Marks Primary Care Pr ovider Source Comments [facility],non-owned Affiliates and Associated Physician Practices is amultiple site organization consisting of ambulatory clinics and hospital sitesin [place], [place], [place] and [place]. This disclosure is being madepursuant to the Care Everywhere program and may not contain all information available regarding this patient. Last updated 18.[facility] Allergies Active Allergy Reactions Criticality Noted Date Comments Codeine Itching Medium 06/20/2019 Medications * Be aware that medications may not be up to date on this document. Alwaysverify current medications with the patient. 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 Gender Identity Not on file Sexual [...] SCREENING 1964 LIPID TESTING 1964 MAMMOGRAM 1964 HIV SCREENING 1979 HEPATITIS C SCREENING 09/11/1982 DTAP/TDAP/TD VACCINES (1 - Tdap) 1983 PNEUMOCOCCAL VACCINE 50+ (1 of 1 - PCV) 2014 ZOSTER VACCINE (1 of 2) 2014 SCREENING FOR DIABETES 06/20/2019 COVID-19 VACCINE ( - 2023-2 5 season) 2024 DEPRESSION SCREENING 09/13/2024 INFLUENZA VACCINE (Season Ended) 2025 COLONOSCOPY - COLON CA SCREENING 06/13/2030 06/13/20 20 Colorectal Cancer Screening 06/13/2030 Respiratory Syncytial Virus [...] to complete this topic MENINGOCOCCAL (Group B) VACC INE SHARED DECISION-MAKING Aged Out No longer eligibl e based on patient's age to complete this topic MENINGOCOCCAL GROUPS A/C/Y/W VACCINE Aged Out No longer eligible b ased on patient's age to complete this topic Insurance ANTHEM ANTHEM Care Teams Assistant Football Coach Relationship Specialty Start Date End Date Loni Marks PA [address] [place] [id number] PCP - General 11/29/18
--- OUTSIDE RECORDS SUMMARY | 2025-01-16 10:44 | XMS_ITS | Encounter Summary ---
Author Organization [facility] Address [address] [place] [address] Phone Care Team Providers Care Chainman Name Role Phone Loni Duong Primary Care Pr ovider Encounter Details Date Type Department Care Team (Late st Contact Info) Description 12/06/2017 Orders Only [facility] ProviderVic MD [address] [place] [address] Social History Tobacco Use Types Packs/Day Years Used Date Smoking Tobacco: Never Comments Unknown Sex and Gender Information Value Date Recorded Sex Assigned at Not on file 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 Historical Provider LAB BLOOD ORDERABLES Michelle l Result documented in this encounter Visit Diagnoses Not on filedocumented in this encounter Care Teams Chainman Relationship Specialty Start Date End Date Loni Duong PA PCP - General 11/19/16 documented as of this encounter
--- OUTSIDE RECORDS SUMMARY | 2025-01-16 10:44 | XMS_ITS | Continuity of Care Document ---
Author Organization [facility] Address [address] [place] [address] Phone Care Team Providers Care Cafe Team Member Name Role Phone Kurtz OD, Cosme Unavailable Unavailable Advance Directives Directive Yes / No Effective Date File Name No Information Encounters Encounter Description Practice Location Reason(s) For Visit Diagnoses Date Provider Providers Copied on Encounter [facility], [address], [place], [place], [address], [place] tel:[phone] [facility] No Information Cayden-2 [phone] Kurtz OD Cosme. [address] , [address], [place], [address], [place]. tel:[phone] Family History Family Member Type Diagnosis Age At Onset No Information Payers Payer name Insurance type Covered republican ID Authoriza tion(s) [facility] Commercial CI [id number] Social History Type Description Quantity Date Captured [...]
--- OUTSIDE RECORDS SUMMARY | 2025-01-16 10:44 | XMS_ITS | Data Portability ---
Author Organization [facility] [employer], Main Office Address [address] [place] [address] Assessment Encounter Date Assessment Date Assessment LastModified [...] LILIA [facility], [address], [place], [address], 3 10:46:09 lipid panel, serum 2022 023 [email or web address] Aritacoeric, [address], [place], [address], 3 11:35:00 CMP, serum or plasma 2022 023 moe Bird, [address], [place], [address], 3 11:35:17 CBC w/ auto diff 2022 023 moe Bird, [address], [place], [address], 3 11:35:17 vitamin D, 25-hydroxy, total, serum 2022 023 moe Bird, [address], [place], [address], 11:35:16 vitamin B12, serum 2022 023 [email or web address] [facility], [address], [place], [address], 11:34:53 HbA1c (hemoglobin A1c), blood 2022 023 [email or web address] [facility], [address], [place], [address], 11:35:16 Referral None recorded. Procedures None recorded. Surgeries None recorded. Imaging XR, hip, unilateral 2022 023 ANA LILIA Not available 16:09:59 Medication Orders nystatin 100,000 unit/mL oral suspension 2022 023 ANA LILIA [id number], [address] [place], [address], 10:15:43 Patient TargetsNo targets recorded. Patient InstructionsNo instructions recorded. Reason for Referral None Reported. Results Created Date Observation Date Name Description Value Unit Range Abnormal Flag Note LastModifiedBy Organization Detail LastModifiedTime 03/30/2002/05/2023 CT, abdom en + pelvi s, w/ contr ast No observ ation record ed. [address], [place], [address], 03/31/2023 15:10:53 04/06/20 23 04/05/2023 colon oscop y scree ac (PROC ) No observ ation record ed. [email or web address] Not Available 2022 09:57:37 05/18/20 23 01/15/2023 CT, abdom en + pelvi s, w/ contr ast No observ ation record ed. BARCODE Not Available 2022 16:07:04 06/16/20 23 06/16/2023 XR, hip, unila teral No observ ation record ed. [email or web address] [facility] [address], [place], [address], 06/18/2023 15:26:48 10/05/19 24 10/05/2023 MAMMO , diagn ostic , digit al, bilat eral No observ ation record ed. [email or web address] [address], [address], 10/06/2023 14:30:01 Result Notes None recorded. Problems Name Problem SNOMED Code Status Onset Date Resolution Date Notes Provider Name and Address Organization Details Recorded Time Suprapubic pain 652728659 Active Not Available [facility] 3 17:29:42 Spondyloli sthesis 799769226 Active Not Available [facility] 3 17:29:42 Left lower quadrant pain 537167770 Active Not Available [facility] 3 17:29:42 Right upper quadrant pain 275121952 Active Not Available [facility] 3 17:29:43 Hypoglycem ia 584672102 Active Not Available [facility] 3 17:29:43 Lower urinary tract symptoms 096778834 Active Not Available [facility] 3 17:29:43 Diverticul ar disease 976810460 Active Not Available [facility] 3 17:29:43 Adhesive capsulitis of shoulder 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 3 15:24:21 Diverticul ar disease of colon 815859464 Active 2022 TYRA Sol [address], [address], [place], [address] , [facility] 3 15:25:04 Chronic interstiti al cystitis 738004108 Active 2022 [facility] Sol [address], [address], [place], [address] , [facility] 3 15:25:37 Acute urinary tract infection 070891714 Active 2022 T[facility] Sol [address], [address], [place], [address] , [facility] 3 10:09:26 Urinary tract infectious disease 52436958 Active 2022 [facility] Sol [address], [address], [place], [address] , [facility] 3 10:14:27 Allergic rhinitis 33180568 Active 2022 T[facility] Sol [address], [address], [place], [address] , [facility] 3 10:14:33 Pain of right hip joint 2637898041341 02 Active 2022 T[facility] Sol [address], [address], [place], [address] , [facility] 3 10:14:38 Coating of mucous membrane of tongue 864900548 Active 2022 [facility] Sol [address], [address], [place], [address] , [facility] 3 10:15:21 Lump of axillary tail of right breast 8137720880390 06 Active 2022 TY[facility] Sol [address], [place], [address] , [facility] 3 09:45:11 Problem Notes None recorded. Procedures Surgical History Date Name Laterality Status Provider Name and Address Organization Details Recorded Time 09/13/19 10 cholecystectomy completed LEONIE Brown [place] [facility] 01/18/2023 14:07:31 09/13/19 08 section completed LEONIE Brown [place] [facility] 01/18/2023 14:09:03 09/13/19 00 Breast Surgery completed LEONIE Brown [place] [facility] 01/18/2023 14:08:43 Imaging Results Imaging Date Name Status LastModified by Organiz ation Details LastModified Time 02/05/2023 CT, abdomen + pelvis, w/ contrast completed [place] [address] [facility], [place], [address], 03/31/2023 15:10:53 04/05/2023 colonoscopy screening (PROC) completed [email or web address] Information not available 06/16/2023 09:57:37 01/15/2023 CT, abdomen + pelvis, w/ contrast completed [facility] Information not available 05/18/2023 16:07:04 06/16/2023 XR, hip, unilateral completed [address], [place], [address], 06/18/2023 15:26:48 10/05/2023 MAMMO, diagnostic, digital, bilateral completed [address], [address], 10/06/2023 14:30:01 Procedure Notes None recorded. Medical Equipment None Reported. Allergies Allergen ID Allergen Name Allergen Category Reaction Reaction Severity Criticality Documentation Date Start Date Code Code System Note Provider Name and Address Organization Details Recorded Time 18930 codeine medicatio n rash Not available Not [...] azelastine 137 mcg (0.1 %) nasal spray [place] 2 sprays twice a day by intranasa [...] Address Organization Details Last Updated DateTime 3 13925.9 6 g 27.1 kg/m2 177.8 cm 89 /min 99 % 99 % 98.4 [degF] 124 mm[Hg] 86 mm[Hg] Joslyn Akins RN [facility] 3 15:02:20 Date Recorded Body height Body mass index (BMI) Body weight Body temperature Heart rate Oxygen saturation Oxygen saturation in Arterial blood by Pulse oximetry Systolic blood pressure Diastolic blood pressure Provider Name and Address Organization Details Last Updated DateTime 3 177.8 cm 25.8 kg/m2 53427.6 3 g 97.5 [degF] 80 /min 99 % 99 % 110 mm[Hg] 78 mm[Hg] Joslyn Akins RN [facility] 09:51:43 Social History Question Answer Notes LastModified by Organizat ion Details LastModified Time Tobacco Smoking Status Never Smoker Joslyn Akins RN null, [facility] 01/18/2023 14:04:46 What Is Your Level Of Alcohol Consumption? None [email or web address] Information not available 01/18/2023 What Is Your Level Of Caffeine Consumption? None [email or web address] Information not available 01/18/2023 In The 14 Days Before Symptom Onset, Have You Had Close Contact With A Laboratory-confirm ed COVID-19 While That Case Was Ill? No [email or web address] Information n ot available 01/18/2023 In The 14 Days Before Symptom Onset, Have You Had Close Contact With A Person Who Is Under Investigation For COVID-19 While That Person Was Ill? No [email or web address] Information not available 01/18/2023 Are You Currently Employed? No [email or web address] Information not available 06/15/2023 What Type Of Diet Are You Following? REGULAR Information n ot available 01/18/2023 What Is The Highest Grade Or Level Of School You Have Completed Or The Highest Degree You Have Received? 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 No [email or web address] Information no t available 01/18/2023 Do You Use Insect Repellent Routinely? No [email or web address] Information not available 06/15/2023 What Is Your Relationship Status? [email or web address] Information not available 01/18/2023 Do You Use Your Seat Belt Or Car Seat Routinely? Yes [email or web address] Information not available 01/18/2023 Are You Passively Exposed To Smoke? No [email or web address] Information no t available 01/18/2023 Are There Any Smokers In Your House? No [email or web address] Information not available 01/18/2023 Do You Feel Stressed (tense, Restless, Nervous, Or Anxious, Or Unable To Sleep At Night)? [id number] [email or web address] Information not available 01/18/2023 Do You Use Any Illicit Or Recreational Drugs? No [email or web address] Information not available 01/18/2023 Do You Use Sunscreen Routinely? Yes [email or web address] Information not available 06/15/2023 Have You Recently Traveled Abroad? No [email or web address] Information not available 01/18/2023 Do You Have Any Dietary Restrictions? No [email or web address] Information not available 01/18/2023 Do You Or Have You Ever Used Any Other Forms Of Tobacco Or Nicotine? No [email or web address] Information not available 01/18/2023 Sex: Female Functional Status Question Answer Note LastModified by Organization D etails LastModified Time What is your exercise level? None Information not available 01/18/2023 Mental Status None recorded. Family History Relationship Description Onset Age of this Age Resolved Age Notes LastModified by Organization Details LastModified Time Father Diabetes mellitus [email or web address] Not available 04/2023 14:03:23 Brother Malignant neoplasm of brain 58 [email or web address] Not available 04/2023 14:03:51 Medical History No medical history recorded. Gynecological HistoryNo gynecological history recorded. Obstetrics History GPAL:G 0 P 0 0 0 0 Past Encounters Encounter ID Performer Location Encounter Start Date Encounter Closed Date Diagnosis/Indication Diagnosis SNOMED-CT Code Diagnosis ICD10 Code Diagnosis Note [id number] [facility] [place] [address] [place] [address] 01/18/2023 14:41:01 01/18/2023 15:29:51 Adult health examination 533805862 Z00.00 well exam completed; all annual labs ordered. Cholesterol screening 27 9850562 Z13.220 Diabetes m ellitus screening 728091838 Z13.1 Vitamin D deficiency 347 87884 E55.9 Endocrine/ metabolic screening 883953804 Z13.228 Thyroid di sorder screening 155669255 Z13.29 Long-term drug therapy 761739286 Z79.899 Diverticul ar disease of colon 725517820 K57.30 post recent flare with abscess. seeing general surgeon in 2 weeks for f/u. Chronic in terstitial cystitis 071687466 N30.10 managed by urology [id number] TY[facility] Sol [facility] [place]ou[place] [address] [place] [address] 06/16/2023 09:42:50 06/16/2023 10:19:32 Urinary tract infectious disease 62308644 N39.0 continue augmentin abx therapy pt was already given end of May. Allergic rhinitis 064800 04 J30.9 take OTC antihistam ine. nasal steroid spray if able. Pain of ri ght hip joint 1112383373 21463 M25.551 check xray right hip. r/o OA Coating of mucous membrane of tongue 385464569 K14.3 trial of nystatin swish and swallow. Health Concerns Section Related Observation LastModified by Organization Detai ls LastModified Time None Recorded Concern Status LastModified by Organization Details LastModified Time None Recorded Advance Directives Directive None Recorded Payers Encounter Date Sequence Insurance Name Policy Number Policy Mohamud Covered Member ID Mohamud Member ID Guarantor Name 01/18/[address] [facility] OUT OF STATE - BLUE CARD (PPO) [id number] Catrachito Olguin [id number] Alana Olguin 06/16/2023 1 [facility] [id number] Catrachito Olguin [id number] Alana Olguin Notes Date Note Type Note Provider Name and Address Organization Details Recorded Time 3 text/html Bowel Complaints/Fecal IncontinenceReported bypatient.Notes:previousl y saw GI, has not seen since 2020 last seen [facility] for c/o bowel problems (records requested)- diverticulitis was dx. here for wellness today - no current complaints for you [facility] Sol [address] [facility] [facility], [place], [address], [facility] 02/10/2023 15:34:16 3 text/html EaracheReported bypatient.Location:bilate ral [...] taking augmentin for uti [facility] [address] [address], [place], [address], [facility] 07/13/2023 00:20:22 OBGyn Episode No OBEpisode recorded.
--- OUTSIDE RECORDS SUMMARY | 2025-01-16 10:44 | XMS_ITS | Encounter Summary ---
Author Organization [facility] Address [address] [place] [address] Phone Care Team Providers Care Senior Vice President & General Counsel Name Role Phone Loni Duong Primary Care Pr ovider Encounter Details Date Type Department Care Team (Late st Contact Info) Description 09/12/2019 Orders Only [facility] Scanning, Provider Social History Tobacco Use Types Packs/Day Years Used Date Smoking Tobacco: Never Smokeless Tobacco: Never Alcohol Use Standard Drinks/Week Comments No 0 (1 standard drink = 0.6 oz pur e alcohol) Comments Unknown Sex and Gender Information Value Date Recorded Sex Assigned at Not on file 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 Gender Identity Not on file Sexual Orientation Not on file documented as of this encounter Plan of Treatment Not on file documented as of this encounter Procedures Procedure Name Priority Date/Time Associated Diagnosis Comments SCAN - RADIOLOGY/IMAGING 09/12/2019 documented in this encounter Results * SCAN - RADIOLOGY/IMAGING (09/12/2019) Anatomical Region Laterality Modality Other us Provider Scanning Final Result documented in this encounter Visit Diagnoses Not on filedocumented in this encounter Care Teams Senior Vice President & General Counsel Relationship Specialty Start Date End Date Loni Duong PA PCP - General 11/19/16 documented as of this encounter
--- OUTSIDE RECORDS SUMMARY | 2025-01-16 10:44 | XMS_ITS | Encounter Summary ---
Author Organization [facility] Address [address] [place] [address] Care Team Providers Care Teacher Dancing Name Role Phone Loni Marks Primary Care Pr ovider Reason for Visit * Reason Onset Date Comments Future Appointment 12/12/2018 Encounter Details Date Type Department Care Team (Late st Contact Info) Description 12/12/[address] 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 Gender Identity Not on file Sexual Orientation Not on file documented as of this encounter Miscellaneous Notes * Telephone Encounter - Yue Vallejo - 12/12/2018 2:21 PM CDT PT would like for someone to give her a call about appointment tomorrow regarding if she needs results for her ct scan CB: [phone] documented in this encounter Plan of Treatment Not on file documented as of this encounter Visit Diagnoses Not on filedocumented in this encounter Care Teams Teacher Dancing Relationship Specialty Start Date End Date Loni Marks PA [address] [place] [address] PCP - General 11/29/18 documented as of this encounter
--- NOTE | 2025-01-16 10:47 | ECG_ITS ---
Test Date: 2025-01-16 10:55:18 Measurements Intervals [place] Rate: 82 P: 41 LA: 193 QRS: -8 QRSD: 95 T: 16 QT: 360 QTc: 421 Interpretive Statements SINUS RHYTHM POSSIBLE LEFT ATRIAL ENLARGEMENT [-0.1mV P WAVE IN V1/V2] SEPTAL MYOCARDIAL INFARCTION [40+ ms Q WAVE IN V1/V2], OF INDETERMINATE AGE No previous ECG available for comparison Electronically Signed On 01-16-2025 14:34:02 CDT by Aftab Bolivar M.D.
[2025-01-16 11:28] LABS: Basophils Percent Auto 0.6 % (0.2-1.2); Eosinophils Absolute Auto 0.2 K/mm3 (0-0.3); Eosinophils Percent Auto 2.8 % (0-4.4); Hematocrit 40.7 % (37.0-47.0); Immature Granulocyte Absolute 0.01 K/mm3 (0.00-0.031); Immature Granulocyte Percent A 0.2 % (0-0.5); Lymphocytes Absolute Auto 1.59 K/mm3 (0.9-3.2); Lymphocytes Percent Auto 29.4 % (18.3-44.2); Mean Corpuscular HGB Conc 31.9 g/dl (32-36); Mean Corpuscular Hemoglobin 29.1 pg (26-34); Mean Corpuscular Volume 91.1 fl (80-100); Mean Platelet Volume 8.8 fl (7.4-10.4); Monocytes Absolute Auto 0.6 K/mm3 (0.1-0.6); Monocytes Percent Auto 10.9 % (2.6-8.5); Neutrophils Percent Auto 56.1 % (45.5-73.1); Platelet Count Result 319 k/mm3 (150-375); Red Blood Count 4.47 M/mm3 (4.2-5.4); Red Cell Distribution Width 12.9 % (11.5-14.5); White Blood Count 5.4 K/mm3 (4.5-10.0)
[2025-01-16 11:34] LABS: Urine Cotinine NEGATIVE
[2025-01-16 11:35] LABS: Hemoglobin A1C 5.4 % (<5.7)
[2025-01-16 11:39] LABS: Albumin Level 4.7 g/dL (3.5-5.1); Anion Gap 11 mmol/L (4-12); Blood Urea Nitrogen 16 mg/dL (7-17); Carbon Dioxide 27 mmol/L (22-30); Chloride 100 mmol/L (98-107); Estimated Glomerular Filt Rate > 60; Glucose 94 mg/dL (65-110); Potassium 4.1 mmol/L (3.4-5.0); Sodium 138 mmol/L (137-145)
== END 2025-01-16 09:53 | disposition home or self-care (01) ==
LOC: ANHSURGERY 09:59
PROVIDERS: PCP Physician Assistant; Visit Provider Orthopaedic Surgery
DX: Z01.818 Encounter for other preprocedural examination (principal); M16.11 Unilateral primary osteoarthritis, right hip
CPT/HCPCS: 80048; 80307; 82040; 83036; 85025; 87081; 87181; 93005

== ENCOUNTER 2025-01-30 07:31 | Emergency (ER) | payer OTHER, SELFPAY ==
[2025-01-30] VITALS (17 sets, daily range): BP systolic 148–165; BP diastolic 60–103; PULSE 57–78; RESP 13–21; TEMP 36.4; O2SAT 96–100
--- NOTE | ~2025-01-30 | XR_ITS ---
CHEST RADIOGRAPH, PA AND LATERAL CLINICAL HISTORY: chest pain . COMPARISON: 06/21/2020 TECHNIQUE: PA and lateral views of the chest. FINDINGS The cardiomediastinal silhouette is unremarkable. The lungs are clear. Visualized osseous structures and soft tissues are unremarkable. IMPRESSION: No focal infiltrate or effusion. Reviewed, dictated and finalized at location A.
--- NOTE | ~2025-01-30 | CT_ITS ---
EXAMINATION: CT chest abdomen pelvis w con DATE: 01/30/2025 10:02 INDICATION: Chest pain and lower abdominal pain TECHNIQUE: Computed tomography (CT) of the chest, abdomen, and pelvis was performed with 100 mL Omnip aque-350 intravenous contrast. Automated exposure control and iterative reconstruction technique were employed. The dose-length product was 861.02 mGy-cm. COMPARISON: CT abdomen pelvis dated 09/12/2024 FINDINGS: CHEST CT: Mild peripheral reticular atelectasis/scarring dependent lower lobes. Additional region of peripheral reticular opacities at the anteromedial right upper lobe with more typical location and appearance f or radiation fibrosis with heterotopic ossification in the right breast and surgical clips in both br easts consistent with prior excisional biopsies. No pulmonary edema, pneumonia or pleural effusion. H eart size is normal. No pericardial effusion. Thoracic aorta is normal in caliber. There is mild medi astinal lymphadenopathy largest lymph node a 3.2 x 1.6 similar right paratracheal lymph node. Moderat e thoracic spondylosis with chronic appearing mild anterior wedging at T11 and T12. ABDOMEN/PELVIS CT: Mild dilation the common hepatic duct which measures up to 1.3 cm tapering gradually throughout the c ommon bile duct with no evident obstructing stones or masses and likely related to prior cholecystect kermit with surgical clips at the gallbladder fossa. A couple low-attenuation hepatic cysts the largest measuring 2.5 cm at the caudal tip of the right hepatic lobe. Spleen, pancreas and bilateral adrenal glands are normal. Mild left renal atrophy with scattered more focal cortical atrophy. There are coup le small nonobstructing stones versus dystrophic parenchymal calcifications at one of the regions of scarring at the interpolar region of the left kidney, the larger calcific lesion measuring 4 mm. 1.5 cm parapelvic cyst at the upper pole of the right kidney. Bladder, uterus and bilateral adnexa are un remarkable. There are few scattered colonic diverticula with sigmoid predominance and without adjacen t from trace stranding to suggest diverticulitis. Small bowel and appendix are normal. No free intrap eritoneal gas or fluid. No pathologically enlarged abdominal or pelvic lymphadenopathy. Moderate lumb ar spondylosis. Moderate osteoarthritis at the right hip. IMPRESSION: 1. No acute cardiopulmonary disease or acute intra-abdominal/pelvic process. 2. Nonspecific mediastinal lymphadenopathy which could be reactive, metastatic disease or lymphoma. 3. Dilation the common hepatic duct to 1.3 cm likely related to prior cholecystectomy. Correlate with liver function tests and if there is concern for biliary obstruction could consider MRCP for further evaluation. 4. Mild left renal atrophy with small nonobstructing renal stones versus dystrophic parenchymal calci fications at the site of focal cortical scarring which may represent sequela prior infection or infar ction. Reviewed, dictated and finalized at location A. IMPRESSION: 1. No acute cardiopulmonary disease or acute intra-abdominal/pelvic process. 2. Nonspecific mediastinal lymphadenopathy which could be reactive, metastatic disease or lymphoma. 3. Dilation the common hepatic duct to 1.3 cm likely related to prior cholecyst ectomy. Correlate with liver function tests and if there is concern for biliary obstruction could consider MRCP for further evaluation. 4. Mild left renal atrophy with small nonobstructing renal stones versus dystro phic parenchymal calcifications at the site of focal cortical scarring which ma y represent sequela prior infection or infarction.
--- NOTE | 2025-01-30 07:33 | ECG_ITS ---
Test Date: 2025-01-30 07:38:16 Measurements Intervals [place] Rate: 63 P: 37 ID: [id number] QRS: -1 QRSD: 105 T: 31 QT: 375 QTc: 386 Interpretive Statements SINUS RHYTHM POSSIBLE LEFT ATRIAL ENLARGEMENT [-0.1mV P-WAVE IN V1/V2] LOW QRS VOLTAGE IN PRECORDIAL LEADS [QRS DEFLECTION < 1.0 mV IN CHEST LEADS] Compared to ECG 01/16/2025 10:55:18 NO SIGNIFICANT CHANGES Electronically Signed On 01-30-2025 13:35:39 CDT by Aftab Bolivar M.D.
--- OUTSIDE RECORDS SUMMARY | 2025-01-30 07:35 | XMS_ITS | Referral Summary ---
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 Stable postsurgical changes of bilateral breast [...] Chantel Leo M.D. Narrative 10/05/2023 10:37 AM VESSEL ENGINEER EXAMINATION: BILATERAL DIGITAL DIAGNOSTIC MAMMOGRAM INCLUDING CAD [...] agrees with it. Electronically signed by: Chantel eLo M.D. us Loni MARY IMG MAMMO PROCED URES Final Result * COLONOSCOPY (06/13/2020 9:01 AM CDT) Anatomical Region Laterality Modality Other Narrative Procedure Note Kal Ha MD - 06/13/2020 9:01 AM CDT ENDOSCOPY LAB Patient Name: Alana Pal Procedure Date: 06/13/2020 9:01 AM Date of : 1965 Admit Type: Outpatient Age: 54 Gender: Female Attending MD: Kal Ha M.D. Room: [facility] ENDOSCOPY ROOM 04 Note Status: [...] Thescope was passed under direct vision. The [id number] introduced through the anus and advanced to the cecum, identified by appendiceal orifice and ileocecal valve.The colonoscopy was performed without difficulty. Thepatient tolerated the procedure well. The quality of the bowel preparation was evaluated using the BBPS ([place] Bowel Preparation Scale) with scores of: Right [...] Payer ID:[id number] (NAIC) Group ID:Not on file Type:[employer] Address: [address] [employer] [place] [address] Advance Directives For more information, please contact: [phone] * Full Code (Latest Code Status on File) Date Activated Date Inactivated Comments 06/13/2020 8:02 AM 06/13/2020 1:57 PM * Full Code Date Activated Date Inactivated Comments 09/01/2019 8:33 AM 09/01/2019 3:28 PM Care Teams Production Line Operator Relationship Specialty Start Date End Date Loni Duong PA PCP - General 11/19/16
--- OUTSIDE RECORDS SUMMARY | 2025-01-30 07:35 | XMS_ITS | Clinical Summary ---
Author Organization [facility] Address [address] [place] [address] Care Team Providers Care Cabinetmaker Helper Name Role Phone Loni Duong Primary Care Pr ovider Allergies Active Allergy Reactions Criticality Noted Date Comments Codeine Itching Low Medications bv-exrjjps-koh- iron fm-FA-vitK 18 mg iron-600 mcg-80 mcg [...] (05/23/2020): Added automatically from request for surgery [id number] Encounter for follow-up surveillance of breast c ancer 04/23/2020 History of bilateral breast cancer 04/23/2020 Generalized abdominal pain 10/12/2019 Diverticulitis of large inte brian without perforation or abscess without bleeding 10/12/2019 Gastric nodule 10/12/2019 Epigastric pain 07/23/2019 Irritable bowel syndrome 11/01/2018 Surgical History Surgery Date Site/Laterality Comments UT DELIVERY ONLY UT CHOLECYSTECTOMY UT DILATION & CURETTAGE DX&/THER NONOBSTETRIC MASTECTOMY, PARTIAL [...] on file Legal Sex Female 8:[address] COLLECTIONS OFFICER Gender Identity Not on file Sexual Orientation [...] Read Routine (OP Routine) 10/05/2023 9:[address] COLLECTIONS OFFICER Unspecified lump in axillary tail of the right breast COLONOSCOPY 06/13/2020 9:01 AM CDT from Last 3 Months or Most Recently Relevant to Health Maintenance Results * Diagnostic Mammogram Bilateral W [place] (10/05/2023 9:[address] COLLECTIONS OFFICER) Anatomical Region Laterality Modality Breast Bilateral Mammography 10/05/2023 10:[address] COLLECTIONS OFFICER Impressions 10/05/2023 10:[address] COLLECTIONS OFFICER 1. Stable postsurgical changes of bilateral breast [...] Chantel Leo M.D. Narrative 10/05/2023 10:[address] COLLECTIONS OFFICER EXAMINATION: BILATERAL DIGITAL DIAGNOSTIC MAMMOGRAM INCLUDING CAD [...] Female Attending MD: Kal Ha M.D. Room: [facility] ENDOSCOPY ROOM 04 Note Status: [...] Thescope was passed under direct vision. The [id number] introduced through the anus and advanced to the cecum, identified by appendiceal orifice and ileocecal valve.The colonoscopy was performed without difficulty. Thepatient tolerated the procedure well. The quality of the bowel preparation was evaluated using the BBPS ([place] Bowel Preparation Scale) with scores of: Right [...] JR Date of :1965 Payer ID:[id number] (NAIC) Type:ClaimReturn Address: [address] [employer]ESS [employer] Member Subscriber Plan / Payer ( fective 2021-Present) Name:Alana Pal Relation to Subscriber:Self Name:Alana Pal Payer ID:[id number] (NAIC) Group ID:Not on file Type:ClaimReturn Address: [address] [employer] [place] [id number] [employer] Advance Directives For more information, please contact: [phone] * Full Code (Latest Code Status on File) Date Activated Date Inactivated Comments 06/13/2020 8:02 AM 06/13/2020 1:57 PM * Full Code Date Activated Date Inactivated Comments 09/01/2019 8:33 AM 09/01/2019 3:28 PM Care Teams Cabinetmaker Helper Relationship Specialty Start Date End Date Loni Duong PA PCP - General 11/19/16
--- OUTSIDE RECORDS SUMMARY | 2025-01-30 07:35 | XMS_ITS | Data Portability ---
Author Organization [facility] Address [address] [facility] [place] [address] Assessment Encounter Date Assessment Date Assessment LastModified [...] recorded. Lab biopsy, endometri al 2015 Tanna [email or web address] [facility], [address] [place] [address], [address], [place], [address], 6 13:08:18 pathology study - emb 2015 Tanna [email or web address] [facility], [address], [address], [place], [address], 6 12:06:24 urinalysi s, dipstick 2015 016 In-Office Order, Internal Use Only DO Not Attach Compendium DO Not Attach Compendium, Do Not Delete/merge, [id number] 6 10:54:31 test, urine 2015 016 [email or web address] In-Office Order, Internal Use Only DO Not Attach Compendium DO Not Attach Compendium, Do Not Delete/merge, [id number] 6 18:49:48 urinalysi s, dipstick 2015 016 [email or web address] In-Office Order, Internal Use Only DO Not Attach Compendium DO Not Attach Compendium, Do Not Delete/merge, [id number] 6 18:49:48 urinalysi s, dipstick 2015 016 In-Office Order, Internal Use Only DO Not Attach Compendium DO Not Attach Compendium, Do Not Delete/merge, [id number] 6 11:58:48 bacterial vaginosis + vaginitis panel, vaginal 2015 016 ANA LILIA [facility], [address], [address], [place], [address], 6 06:04:50 TSH + free T4, serum 2015 016 ANA LILIA [facility], [address], [address], [place], [address], 6 07:22:45 progester one, serum 2015 016 ANA LILIA [facility], [address], [address], [place], [address], 6 07:22:49 HbA1c (hemoglob in A1c), blood 2015 016 [facility], [facility] m[address], [address], [place], [address], 6 07:22:47 CMP, serum or plasma 2015 016 ANA LILIA [facility], [address] [place], [place] [address]diann [address], [address], [place], [address], 6 07:22:46 FSH (follicle -stimulat ing hormone), serum 2015 016 [facility]IA [facility], [facility] [address], [address], [place], [address], 6 07:22:48 CBC w/ auto diff 2015 016 [facility], [address] [place] [address] [address], [address], [place], [address], 6 07:22:45 estradiol , serum 2015 016 [facility]IA [facility], [address] [place], [place] [address]jovan [address], [address], [place], [address], 6 07:22:48 urinalysi s, dipstick 2015 Tanna song In-Office Order, Internal Use Only DO Not Attach Compendium DO Not Attach Compendium, Do Not Delete/merge, [id number] 6 16:20:53 culture, urine 2015 016 ANA LILIA COOPER, [facility] Center[facility] mike [address], [address], [place], [address], 6 06:12:59 pap, IG + HPV, cervical 2015 016 ANA LILIA OBRIEN, [address], [address], [place], [address], 6 16:41:55 bacterial vaginosis + vaginitis panel, vaginal 2015 016 ANA LILIA OBRIEN, [address], [address], [place], [address], 6 06:11:53 HSV (1+2) DNA, qual, PCR, unspecifi ed specimen 2015 016 ANA LILIA OBRIEN, [address], [address], [place], [address], 6 06:11:54 unlisted lab - kathy 6 species profile, MANJIT 2015 016 ANA LILIA COOPERNARAYAN, Gary Ndiayeabidageetadiann [address], [address], [place], [address], 6 06:11:54 test, urine 2014 Jaqui song In-Office Order, Internal Use Only DO Not Attach Compendium DO Not Attach Compendium, Do Not Delete/merge, [id number] 5 09:30:07 CBC w/ auto diff 2014 015 ANA LILIA COOPERNARAYAN, [address] Ndiayemike [address], [address], [place], [address], 5 16:34:31 progester one, serum 2014 015 ANA LILIA WESLEYJULIETA, Gary Ndiayemike [address], [address], [place], [address], 5 16:34:36 HbA1c (hemoglob in A1c), blood 2014 015 ANA LILIA WESLEYJULIETA, FitoLana [address], [address], [place], [address], 5 16:34:33 CMP, serum or plasma 2014 015 ANA LILIA [facility], [address], [address], [place], [address], 5 16:34:32 TSH, serum or plasma 2014 015 [email or web address] [facility], [address], [address], [place], [address], 5 16:20:44 FSH (follicle -stimulat ing hormone), serum 2014 015 ANA LILIA [facility], [address], [address], [place], [address], 5 16:34:34 estradiol , serum 2014 015 ANA LILIA OBRIEN, [address], [address], [place], [address], 5 16:34:35 urinalysi s, dipstick 2014 015 [email or web address] In-Office Order, Internal Use Only DO Not Attach Compendium DO Not Attach Compendium, Do Not Delete/merge, [id number] 5 09:30:07 bacterial vaginosis + vaginitis panel, vaginal 2014 015 ANA LILIA [facility], [address], [address], [place], [address], 5 11:41:55 HSV (1+2) DNA, qual, PCR, unspecifi ed specimen 2014 015 ANA LILIA OBRIEN, [address], [address], [place], [address], 5 11:41:56 culture, vaginal/r ectal, streptoco ccus group B 2014 015 [facility], [address] [facility] [address], [address], [place], [address], 5 11:41:56 Referral gastroent erologist referral - colitis and diverticu litis. needs colonosco py and f/u with specialis t 2015 016 [facility], [address] [facility], [address] [facility], [place], [address], 6 17:31:59 Procedures None recorded. Surgeries None recorded. Imaging US, transvagi nal 2015 016 [facility], [address] [place], [address], 6 13:50:22 Medication Orders Diflucan 150 mg tablet 2015 016 [id number], [address] [place], [address], 6 18:32:13 [place] 5 mg-325 mg tablet 2015 016 [id number], [address] [place], [address], 6 18:32:13 ibuprofen 800 mg tablet 2015 016 [email or web address], [address] [place], [address], 6 18:32:13 nystatin 100,000 unit/gram topical cream 2014 015 [email or web address] [facility], [address] [place], [address], 6 15:38:41 fluconazo le 150 mg tablet 2014 015 duncan [id number], [address] [place], [address], 6 15:38:41 Patient TargetsNo targets recorded. Patient Instructions Encounter Date Encounter Id Patient Instructions Last Modified By Organization Details Last Modified Time 12/20/[id number] candidiasis: care instructions [email or web address] Not available 12/24/2014 10:07:34 11/04/2015 [id number] irritable bowel syndrome: care instructions [email or web address] Not available 11/04/2015 16:20:54 05/13/2016 [id number] chronic pelvic pain: care instructions Not available 05/13/2016 18:32:13 06/03/2016 [id number] uterine fibroids: care instructions [email or web address] Not available 06/04/2016 09:11:19 06/10/2016 [id number] chronic pelvic pain: care instructions [email or web address] Not available 06/11/2016 12:06:05 uterine fibroids: care instructions Not available 06/11/2016 12:06:05 Reason for Referral colitis and diverticulitis. needs colonoscopy and f/u with specialist Referring Physician: Cosme Gloria, [employer], Encounter Date: 11/04/2015 Results Created Date Observation Date Name Description Value Unit Range Abnormal Flag Note LastModifiedBy Organization Detail LastModifiedTime 06/10/2006/10/2016 urina lysis , dipst ick Leukocytes Trace Not Available In-Offi ce Order Internal Use Only DO Not Attach Compendium DO Not Attach Compendium, Do Not Delete/merge, [id number] 06/10/2016 12:30:19 06/10/20 16 06/10/2016 urina lysis , dipst ick Nitrite negati ve Not Available In-Office Order Internal Use Only DO Not Attach Compendium DO Not Attach Compendium, Do Not Delete/merge, [id number] 06/10/2016 12:30:19 06/10/20 16 06/10/2016 urina lysis [...] 06/10/2016 urina lysis , dipst ick Specific [place] 1.015 Not Available In-Off ice Order Internal [...] 06/03/2016 urina lysis , dipst ick Specific [place] 1.020 Not Available In-Off ice Order Internal [...] 05/13/2016 urina lysis , dipst ick Specific [place] 1.030 Not Available In-Off ice Order Internal [...] 11/04/2015 urina lysis , dipst ick Specific [place] 1.030 Not Available In-Off ice Order Internal [...] 12/21/1912/20/2014 urina lysis , dipst ick Specific [place] 1.020 Not Available In-Off ice Order Internal [...] 12/10/2014 urina lysis , dipst ick Specific [place] 1.015 Not Available In-Off ice Order Internal [...] LOW - 0 score Not Available [facility] ([facility]) [address] [facility], [place], [address], 12/26/2014 11:41:55 12/21/19 15 12/25/2014 bacte rial vagin osis + vagin itis panel , vagin al bvab 2 LOW - 0 score Not Available [facility] ([facility]) [address] [facility], [place], [address], 12/26/2014 11:41:55 12/21/1912/25/2014 bacte rial vagin osis [...] IS NOT NECES DARÍO. Not Available [facility] ([facility]) [address] [facility], [place], [address], 12/26/2014 11:41:55 12/21/1912/25/2014 bacte rial vagin osis + vagin itis panel , vagin al kathy albicans, MANJIT NEGATI VE negati ve Not Available [facility] ([facility]) [address] [facility], [place], [address], 12/26/2014 11:41:55 12/21/19 15 12/25/2014 bacte rial [...] IS NOT NECES DARÍO. Not Available [facility] ([facility]) [address] [place], [address], 12/26/2014 11:41:55 12/21/1912/26/2014 bacte rial vagin osis + vagin itis panel , vagin al trich vag by MANJIT NEGATI VE negati ve Not Available [facility] ([facility]) [address] [place], [address], 12/26/2014 11:41:55 12/21/19 15 12/26/2014 bacte rial vagin osis + vagin itis panel , vagin al chlamydia trachomatis, MANJIT NEGATI VE negati ve Not Available [facility] ([facility]) [address] [place], [address], 12/26/2014 11:41:55 12/21/19 15 12/26/2014 bacte rial vagin osis + vagin itis panel , vagin al neisseria gonorrhoeae, MANJIT NEGATI VE negati ve Not Available [facility] ([facility]) [address] [place], [address], 12/26/2014 11:41:55 12/21/1912/24/2014 HSV (1+2) DNA, qual, PCR, unspe cifie d speci men hsv 1 MANJIT NEGATI VE negati ve Not Available [facility] ([facility]) [address] [place], [address], 12/26/2014 11:41:56 12/21/192015 HSV (1+2) DNA, qual, PCR, unspe cifie d speci men hsv 2 MANJIT NEGATI VE negati ve Not Available [facility] ([facility]) [address] [facility], [place], [address], 12/26/2014 11:41:56 12/21/19 15 12/23/2014 cultu re, [...] LINES , MMWR, 2009) Not Available [facility] ([facility]) [address] [facility], [place], [address], 12/26/2014 11:41:56 12/21/19 15 12/21/2014 CBC w/ auto diff WBC 5.5 x10e3 /uL 3.4-10 .8 Not Available [facility] ([facility]) [address] [facility], [place], [address], 12/26/2014 16:34:31 12/21/19 15 12/21/2014 CBC w/ auto diff RBC 4.68 x10e6 /uL 3.77-5 .28 Not Available [facility] ([facility]) [address] [place], [address], 12/26/2014 16:34:31 12/21/19 15 12/21/2014 CBC w/ auto diff hemoglobin 13.9 g/dL 11.1-1 5.9 Not Available [facility] ([facility]) [address] [facility], [place], [address], 12/26/2014 16:34:31 12/21/19 15 12/21/2014 CBC w/ auto diff hematocrit 41.5 % 34.0-4 6.6 Not Available [facility] ([facility]) [address] [facility], [place], [address], 12/26/2014 16:34:31 12/21/19 15 12/21/2014 CBC w/ auto diff MCV 89 fL 79-97 Not Available [facility] ([facility]) [address] [facility], [place], [address], 12/26/2014 16:34:31 12/21/19 15 12/21/2014 CBC w/ auto diff MCH 29.7 pg 26.6-3 3.0 Not Available [facility] ([facility]) [address] [facility], [place], [address], 12/26/2014 16:34:31 12/21/19 15 12/21/2014 CBC w/ auto diff MCHC 33.5 g/dL 31.5-3 5.7 Not Available [facility] ([facility]) [address] [facility], [place], [address], 12/26/2014 16:34:31 12/21/19 15 12/21/2014 CBC w/ auto diff RDW 13.2 % 12.3-1 5.4 Not Available [facility] ([facility]) [address] [facility], [place], [address], 12/26/2014 16:34:31 12/21/19 15 12/21/2014 CBC w/ auto diff platelets 298 x10e3 /uL 150-37 9 Not Available [facility] ([facility]) [address] [facility], [place], [address], 12/26/2014 16:34:31 12/21/19 15 12/21/2014 CBC w/ auto diff neutrophils 55 % Not Available [facility]) [address] [place], [address], 12/26/2014 16:34:31 12/21/19 15 12/21/2014 CBC w/ auto diff lymphs 33 % Not Available [facility] ([facility]) [address] [place], [address], 12/26/2014 16:34:31 12/21/1912/21/2014 CBC w/ auto diff monocytes 8 % Not Available [facility] ([facility]) [address] [place], [address], 12/26/2014 16:34:31 12/21/1912/21/2014 CBC w/ auto diff eos 3 % Not Available [facility] ([facility]) [address] [place], [address], 12/26/2014 16:34:31 12/21/19 15 12/21/2014 CBC w/ auto diff basos 1 % Not Available [facility] ([facility]) [address] [place], [address], 12/26/2014 16:34:31 12/21/1912/21/2014 CBC w/ auto diff neutrophils (absolute) 3.1 x10e3 /uL 1.4-7. 0 Not Available [facility] ([facility]) [address] [place] [address], [address], 12/26/2014 16:34:31 12/21/1912/21/2014 CBC w/ auto diff lymphs (absolute) 1.8 x10e3 /uL 0.7-3. 1 Not Available [facility] ([facility]) [address] [place] [address], [address], 12/26/2014 16:34:31 12/21/19 15 12/21/2014 CBC w/ auto diff monocytes(ab solute) 0.4 x10e3 /uL 0.1-0. 9 Not Available [facility] ([facility]) [address] [place], [address], 12/26/2014 16:34:31 12/21/19 15 12/21/2014 CBC w/ auto diff eos (absolute) 0.2 x10e3 /uL 0.0-0. 4 Not Available [facility] ([facility]) [address] [place], [address], 12/26/2014 16:34:31 12/21/19 15 12/21/2014 CBC w/ auto diff baso (absolute) 0.0 x10e3 /uL 0.0-0. 2 Not Available [facility] ([facility]) [address] [facility], [place], [address], 12/26/2014 16:34:31 12/21/19 15 12/21/2014 CBC w/ auto diff immature granulocytes 0 % Not Available [facility]) [address] [facility], [place], [address], 12/26/2014 16:34:31 12/21/1912/21/2014 CBC w/ auto diff immature grans (abs) 0.0 x10e3 /uL 0.0-0. 1 Not Available [facility] ([facility]) [address] [facility], [place], [address], 12/26/2014 16:34:31 12/21/1912/21/2014 CMP, serum or plasm a glucose, serum 99 mg/dL 65-99 Not Available [facility]) [address] [place], [address], 12/26/2014 16:34:32 12/21/1912/21/2014 CMP, serum or plasm a BUN 13 mg/dL 6-24 Not Available [facility] ([facility]) [address] [place], [address], 12/26/2014 16:34:32 12/21/19 15 12/21/2014 CMP, serum or plasm a creatinine, serum 0.81 mg/dL 0.57-1 .00 Not Available [facility] ([facility]) [address] [facility] [place], [address], 12/26/2014 16:34:32 12/21/19 15 12/21/2014 CMP, serum or plasm a eGFR if nonafricn AM 85 mL/mi n/1.7 3 >59 Not Available [facility] ([facility]) [address] [facility] [place], [address], 12/26/2014 16:34:32 12/21/19 15 12/21/2014 CMP, serum or plasm a eGFR if africn AM 98 mL/mi n/1.7 3 >59 Not Available [facility] ([facility]) [address] [facility] [place], [address], 12/26/2014 16:34:32 12/21/19 15 12/21/2014 CMP, serum or plasm a BUN/creatini ne ratio 16 9-23 Not Available [facility] ([facility]) [address] [place], [address], 12/26/2014 16:34:32 12/21/19 15 12/21/2014 CMP, serum or plasm a sodium, serum 140 mmol/ L 134-14 4 Not Available [facility] ([facility]) [address] [place], [address], 12/26/2014 16:34:32 12/21/19 15 12/21/2014 CMP, serum or plasm a potassium, serum 4.3 mmol/ L 3.5-5. 2 Not Available [facility] ([facility]) [address] [place], [address], 12/26/2014 16:34:32 12/21/19 15 12/21/2014 CMP, serum or plasm a chloride, serum 97 mmol/ L 97-108 Not Available [facility] ([facility]) [address] [facility] [place], [address], 12/26/2014 16:34:32 12/21/1912/21/2014 CMP, serum or plasm a carbon dioxide, total 27 mmol/ L 18-29 Not Available [facility] ([facility]) [address] [facility] [place], [address], 12/26/2014 16:34:32 12/21/1912/21/2014 CMP, serum or plasm a calcium, serum 10.3 mg/dL 8.7-10 .2 high Not Available [facility] ([facility]) [address] [facility] [place], [address], 12/26/2014 16:34:32 12/21/1912/21/2014 CMP, serum or plasm a protein, total, serum 7.2 g/dL 6.0-8. 5 Not Available [facility] ([facility]) [address] [place], [address], 12/26/2014 16:34:32 12/21/1912/21/2014 CMP, serum or plasm a albumin, serum 4.7 g/dL 3.5-5. 5 Not Available [facility] ([facility]) [address] [facility] [place], [address], 12/26/2014 16:34:32 12/21/1912/21/2014 CMP, serum or plasm a globulin, total 2.5 g/dL 1.5-4. 5 Not Available [facility] ([facility]) [address] [place], [address], 12/26/2014 16:34:32 12/21/1912/21/2014 CMP, serum or plasm a A/G ratio 1.9 1.1-2. 5 Not Available [facility] ([facility]) [address] [place], [address], 12/26/2014 16:34:32 12/21/19 15 12/21/2014 CMP, serum or plasm a bilirubin, total 0.5 mg/dL 0.0-1. 2 Not Available [facility] ([facility]) [address] [place], [address], 12/26/2014 16:34:32 12/21/19 15 12/21/2014 CMP, serum or plasm a alkaline phosphatase, S 80 IU/L 39-117 Not Available [facility] ([facility]) [address] [place], [address], 12/26/2014 16:34:32 12/21/19 15 12/21/2014 CMP, serum or plasm a AST (SGOT) 26 IU/L 0-40 Not Available [facility] ([facility]) [address] [place] [address], [address], 12/26/2014 16:34:32 12/21/1912/21/2014 CMP, serum or plasm a ALT (SGPT) 25 IU/L 0-32 Not Available [facility] ([facility]) [address] [place], [address], 12/26/2014 16:34:32 12/21/19 15 12/20/2014 yfn (risk [...] HOLGUIN ON SURGE RY. Not Available [facility] ([facility]) [address] [place], [address], 12/26/2014 16:34:32 12/21/1912/20/2014 yfn (risk of ovari an malig ezio algor ithm score ), serum (lizzie enopa usal) postmenopaus al interp: low COMMEN T IF THE PATIE NT IS POSTM ENOPA USAL, THEN THE POSTM ENOPA USAL YFN SCORE OF LESS THAN 2.77 IS CONSI STENT WITH A LOW LIKEL IHOOD OF FINDI NG A MALADRIEL EZIO ON SURGE RY. Not Available [facility] ([facility]) [address] [facility], [place], [address], 12/26/2014 16:34:32 12/21/19 15 12/20/2014 yfn (risk [...] DIAGN OSTIC ASSAY . Not Available [facility] ([facility]) [address] [facility], [place], [address], 12/26/2014 16:34:32 12/21/19 15 12/24/2014 yfn (risk of ovari an malig ezio algor ithm score ), serum (lizzie enopa usal) he4 45 pmol/ L 0-150 FUJIR EBIO EIA METHO DOLOG Y . CA125 VALUE S OBTAI NELLY WITH DIFFE RENT ASSAY METHO DS OR KITS CANNO T BE USED INTER LARSON EABLY . Not Available [facility] ([facility]) [address] [facility], [place], [address], 12/26/2014 16:34:32 12/21/19 12/26/2014 yfn (risk of ovari an malig ezio algor ithm score ), serum (lizzie enopa usal) cancer antigen 125 (Ca125) 16.2 U/mL 0.0-35 .0 ABBOT T CMIA METHO DOLOG Y Not Available [facility] ([facility]) [address] [place], [address], 12/26/2014 16:34:32 12/21/1912/26/2014 yfn (risk of ovari an malig ezio algor ithm score ), serum (lizzie enopa usal) premenopausa l yfn 0.59 see below Not Available [facility] ([facility]) [address] [place], [address], 12/26/2014 16:34:32 12/21/1912/26/2014 yfn (risk of ovari an malig ezio algor ithm score ), serum (lizzie enopa usal) postmenopaus al yfn 1.10 see below Not Available [facility] ([facility]) [address] [place], [address], 12/26/2014 16:34:32 12/21/1912/21/2014 HbA1c (hemo globi n A1c), blood hemoglobin A1C 5.3 % 4.8-5. 6 . INCRE ASED RISK FOR DIABE SHON: 5.7 - 6.4 DIABE SHON: >6.4 GLYCE HARJINDER CONTR OL FOR ADULT S WITH DIABE SHON: <7.0 Not Available [facility] ([facility]) [address] [place], [address], 12/26/2014 16:34:33 12/21/1912/21/2014 ca 125, serum cancer antigen (Ca) 125 15.6 U/mL 0.0-34 .0 FREDY ECLIA METHO DOLOG Y Not Available [facility] ([facility]) [address] [place], [address], 12/26/2014 16:34:34 12/21/1912/21/2014 FSH (foll icle- stimu latin g hormo ne), serum FSH 88.6 mIU/m L FOLLI CULAR PHASE 3.5 - 12.5 OVULA TION PHASE 4.7 - 21.5 LUTEA L PHASE 1.7 - 7.7 POSTM ENOPA USAL 25.8 - 134.8 Not Available [facility] ([facility]) [address] [place], [address], 12/26/2014 16:34:34 12/21/19 15 12/21/2014 estra diol, serum estradiol <5.1 pg/mL ADULT FEMAL E: FOLLI CULAR PHASE 12.5 - 166.0 OVULA TION PHASE 85.8 - 498.0 LUTEA L PHASE 43.8 - 211.0 POSTM ENOPA USAL <6.0 - 54.7 PREGN TINY 1ST TRIME STER 215.0 - >4300 .0 GIRLS (1-10 YEARS ) 6.0 - 27.0 FREDY ECLIA METHO DOLOG Y Not Available [facility] ([facility]) [address] [place], [address], 12/26/2014 16:34:35 12/21/1912/21/2014 TSH, ultra -sens itive , serum TSH 1.140 uIU/m L 0.450- 4.500 Not Available [facility] ([facility]) [address] [place], [address], 12/26/2014 16:34:36 12/21/1912/21/2014 proge stero ne, serum progesterone 0.4 NG/mL FOLLI CULAR PHASE 0.2 - 1.5 LUTEA L PHASE 1.7 - 27.0 OVULA TION PHASE 0.8 - 3.0 PREGN ANT FIRST TRIME STER 8.8 - 48.6 SECON D TRIME STER 12.4 - 75.8 THIRD TRIME STER 58.5 - 222.3 POSTM ENOPA USAL 0.1 - 0.8 Not Available [facility] ([facility]) [address] [place], [address], 12/26/2014 16:34:36 11/04/19 16 11/05/2015 TSH + free T4, serum TSH 1.100 uIU/m L 0.450- 4.500 Not Available [facility] ([facility]) [address] [place], [address], 11/05/2015 07:22:45 11/04/19 16 11/05/2015 TSH + free T4, serum T4,free(dire ct) 1.22 NG/dL 0.82-1 .77 Not Available [facility] ([facility]) [address] [place], [address], 11/05/2015 07:22:45 11/04/19 16 11/05/2015 CBC w/ auto diff WBC 5.5 x10e3 /uL 3.4-10 .8 Not Available [facility] ([facility]) [address] [place], [address], 11/05/2015 07:22:45 11/04/19 16 11/05/2015 CBC w/ auto diff RBC 4.75 x10e6 /uL 3.77-5 .28 Not Available [facility] ([facility]) [address] [place], [address], 11/05/2015 07:22:45 11/04/19 16 11/05/2015 CBC w/ auto diff hemoglobin 13.9 g/dL 11.1-1 5.9 Not Available [facility] ([facility]) [address] [place], [address], 11/05/2015 07:22:45 11/04/19 16 11/05/2015 CBC w/ auto diff hematocrit 40.8 % 34.0-4 6.6 Not Available [facility] ([facility]) [address] [place], [address], 11/05/2015 07:22:45 11/04/19 16 11/05/2015 CBC w/ auto diff MCV 86 fL 79-97 Not Available [facility] ([facility]) [address] [facility], [place], [address], 11/05/2015 07:22:45 11/04/19 16 11/05/2015 CBC w/ auto diff MCH 29.3 pg 26.6-3 3.0 Not Available [facility] ([facility]) [address] [facility], [place], [address], 11/05/2015 07:22:45 11/04/19 16 11/05/2015 CBC w/ auto diff MCHC 34.1 g/dL 31.5-3 5.7 Not Available [facility] ([facility]) [address] [facility], [place], [address], 11/05/2015 07:22:45 11/04/19 16 11/05/2015 CBC w/ auto diff RDW 13.0 % 12.3-1 5.4 Not Available [facility] ([facility]) [address] [facility], [place], [address], 11/05/2015 07:22:45 11/04/19 16 11/05/2015 CBC w/ auto diff platelets 408 x10e3 /uL 150-37 9 above high normal Not Available [facility] ([facility]) [address] [facility], [place], [place], [address], 11/05/2015 07:22:45 11/04/19 16 11/05/2015 CBC w/ auto diff neutrophils 51 % Not Available [facility] ([facility]) [address] [facility], [place], [address], 11/05/2015 07:22:45 11/04/19 16 11/05/2015 CBC w/ auto diff lymphs 40 % Not Available [facility] ([facility]) [address] [facility], [place], [address], 11/05/2015 07:22:45 11/04/19 16 11/05/2015 CBC w/ auto diff monocytes 7 % Not Available [facility] ([facility]) [address] [place], [address], 11/05/2015 07:22:45 11/04/19 16 11/05/2015 CBC w/ auto diff eos 2 % Not Available [facility] ([facility]) [address] [place], [address], 11/05/2015 07:22:45 11/04/19 16 11/05/2015 CBC w/ auto diff basos 0 % Not Available [facility] ([facility]) [address] [place], [address], 11/05/2015 07:22:45 11/04/19 16 11/05/2015 CBC w/ auto diff immature cells [employer] Not Available [facility] ([facility]) [address] [place], [address], 11/05/2015 07:22:45 11/04/19 16 11/05/2015 CBC w/ auto diff neutrophils (absolute) 2.8 x10e3 /uL 1.4-7. 0 Not Available [facility] ([facility]) [address] [place], [address], 11/05/2015 07:22:45 11/04/19 16 11/05/2015 CBC w/ auto diff lymphs (absolute) 2.2 x10e3 /uL 0.7-3. 1 Not Available [facility] ([facility]) [address] [place], [address], 11/05/2015 07:22:45 11/04/19 16 11/05/2015 CBC w/ auto diff monocytes(ab solute) 0.4 x10e3 /uL 0.1-0. 9 Not Available [facility] ([facility]) [address] [place], [address], 11/05/2015 07:22:45 11/04/19 16 11/05/2015 CBC w/ auto diff eos (absolute) 0.1 x10e3 /uL 0.0-0. 4 Not Available [facility] ([facility]) [address] [place], [address], 11/05/2015 07:22:45 11/04/19 16 11/05/2015 CBC w/ auto diff baso (absolute) 0.0 x10e3 /uL 0.0-0. 2 Not Available [facility] ([facility]) [address] [facility], [place], [address], 11/05/2015 07:22:45 11/04/19 16 11/05/2015 CBC w/ auto diff immature granulocytes 0 % Not Available [facility] ([facility]) [address] [place], [address], 11/05/2015 07:22:45 11/04/19 16 11/05/2015 CBC w/ auto diff immature grans (abs) 0.0 x10e3 /uL 0.0-0. 1 Not Available [facility] ([facility]) [address] [facility], [place], [address], 11/05/2015 07:22:45 11/04/19 16 11/05/2015 CBC w/ auto diff NRBC [employer] Not Available [facility] ([facility]) [address] [place], [address], 11/05/2015 07:22:45 11/04/19 16 11/05/2015 CBC w/ auto diff hematology comments: [employer] Not Available [facility] ([facility]) [address] [place], [address], 11/05/2015 07:22:45 11/04/19 16 11/05/2015 CMP, serum or plasm a glucose, serum 108 mg/dL 65-99 above high normal Not Available [facility] ([facility]) [address] [place], [address], 11/05/2015 07:22:46 11/04/19 16 11/05/2015 CMP, serum or plasm a BUN 11 mg/dL 6-24 Not Available [facility] ([facility]) [address] [place], [address], 11/05/2015 07:22:46 11/04/19 16 11/05/2015 CMP, serum or plasm a creatinine, serum 0.76 mg/dL 0.57-1 .00 Not Available [facility] ([facility]) [address] [place], [address], 11/05/2015 07:22:46 11/04/19 16 11/05/2015 CMP, serum or plasm a eGFR if nonafricn AM 91 mL/mi n/1.7 3 >59 Not Available [facility] ([facility]) [address] [place], [address], 11/05/2015 07:22:46 11/04/19 16 11/05/2015 CMP, serum or plasm a eGFR if africn AM 105 mL/mi n/1.7 3 >59 Not Available [facility] ([facility]) [address] [place], [address], 11/05/2015 07:22:46 11/04/19 16 11/05/2015 CMP, serum or plasm a BUN/creatini ne ratio 14 9-23 Not Available [facility] ([facility]) [address] [place], [address], 11/05/2015 07:22:46 11/04/19 16 11/05/2015 CMP, serum or plasm a sodium, serum 143 mmol/ L 134-14 4 Not Available [facility] ([facility]) [address] [place], [address], 11/05/2015 07:22:46 11/04/19 16 11/05/2015 CMP, serum or plasm a potassium, serum 4.5 mmol/ L 3.5-5. 2 Not Available [facility] ([facility]) [address] [place], [address], 11/05/2015 07:22:46 11/04/19 16 11/05/2015 CMP, serum or plasm a chloride, serum 102 mmol/ L 97-108 Not Available [facility] ([facility]) [address] [facility] [place], [address], 11/05/2015 07:22:46 11/04/19 16 11/05/2015 CMP, serum or plasm a carbon dioxide, total 25 mmol/ L 18-29 Not Available [facility] ([facility]) [address] [place], [address], 11/05/2015 07:22:46 11/04/19 16 11/05/2015 CMP, serum or plasm a calcium, serum 9.9 mg/dL 8.7-10 .2 Not Available [facility] ([facility]) [address] [place], [address], 11/05/2015 07:22:46 11/04/1911/05/2015 CMP, serum or plasm a protein, total, serum 7.4 g/dL 6.0-8. 5 Not Available [facility] ([facility]) [address] [place], [address], 11/05/2015 07:22:46 11/04/19 16 11/05/2015 CMP, serum or plasm a albumin, serum 4.6 g/dL 3.5-5. 5 Not Available [facility] ([facility]) [address] [place], [address], 11/05/2015 07:22:46 11/04/1911/05/2015 CMP, serum or plasm a globulin, total 2.8 g/dL 1.5-4. 5 Not Available [facility] ([facility]) [address] [place], [address], 11/05/2015 07:22:46 11/04/1911/05/2015 CMP, serum or plasm a A/G ratio 1.6 1.1-2. 5 Not Available [facility] ([facility]) [address] [place], [address], 11/05/2015 07:22:46 11/04/19 16 11/05/2015 CMP, serum or plasm a bilirubin, total 0.3 mg/dL 0.0-1. 2 Not Available [facility] ([facility]) [address] [place], [address], 11/05/2015 07:22:46 11/04/19 16 11/05/2015 CMP, serum or plasm a alkaline phosphatase, S 84 IU/L 39-117 Not Available [facility] ([facility]) [address] [place], [address], 11/05/2015 07:22:46 11/04/19 16 11/05/2015 CMP, serum or plasm a AST (SGOT) 24 IU/L 0-40 Not Available [facility] ([facility]) [address] [place], [address], 11/05/2015 07:22:46 11/04/19 16 11/05/2015 CMP, serum or plasm a ALT (SGPT) 28 IU/L 0-32 Not Available [facility] ([facility]) [address] [place], [address], 11/05/2015 07:22:46 11/04/19 16 11/05/2015 HbA1c (hemo globi n A1c), blood hemoglobin A1C 5.5 % 4.8-5. 6 PRE-D IABET ES: 5.7 - 6.4 DIABE SHON: >6.4 GLYCE HARJINDER CONTR OL FOR ADULT S WITH DIABE SHON: <7.0 Not Available [facility] ([facility]) [address] [place], [address], 11/05/2015 07:22:47 11/04/19 16 11/05/2015 FSH (foll icle- stimu latin g hormo ne), serum FSH 102.7 mIU/m L FOLLI CULAR PHASE 3.5 - 12.5 OVULA TION PHASE 4.7 - 21.5 LUTEA L PHASE 1.7 - 7.7 POSTM ENOPA USAL 25.8 - 134.8 Not Available [facility] ([facility]) [address] [facility], [place], [address], 11/05/2015 07:22:47 11/04/19 16 11/05/2015 estra diol, serum estradiol 9.1 pg/mL ADULT FEMAL E: FOLLI CULAR PHASE 12.5 - 166.0 OVULA TION PHASE 85.8 - 498.0 LUTEA L PHASE 43.8 - 211.0 POSTM ENOPA USAL <6.0 - 54.7 PREGN TINY 1ST TRIME STER 215.0 - >4300 .0 GIRLS (1-10 YEARS ) 6.0 - 27.0 FREDY ECLIA METHO DOLOG Y Not Available [facility] ([facility]) [address] [facility], [place], [address], 11/05/2015 07:22:48 11/04/19 16 11/05/2015 proge stero ne, serum progesterone 0.3 NG/mL FOLLI CULAR PHASE 0.2 - 1.5 LUTEA L PHASE 1.7 - 27.0 OVULA TION PHASE 0.8 - 3.0 PREGN ANT FIRST TRIME STER 8.8 - 48.6 SECON D TRIME STER 12.4 - 75.8 THIRD TRIME STER 58.5 - 222.3 POSTM ENOPA USAL 0.1 - 0.8 Not Available [facility] ([facility]) [address] [facility], [place], [address], 11/05/2015 07:22:49 11/04/19 16 11/06/2015 cultu re, urine urine culture, routine FINAL REPORT Not Available [facility] ([facility]) [address] [facility], [place], [address], 11/06/2015 06:12:59 11/04/19 16 11/06/2015 cultu re, urine result 1 FORD Gambino MIXED UROGE NITAL CRISTI 10,00 0-25, 000 COLON Y FORMI NG UNITS PER ML Not Available [facility] ([facility]) [address] [place], [address], 11/06/2015 06:12:59 11/04/19 16 11/05/2015 pap, IG + HPV, cervi alon diagnosis: FORD VALADEZ FOR INTRA EPITH ELIAL LESIO N AND MALADRIEL EZIO . Not Available [facility] ([facility]) [address] [place], [address], 11/07/2015 16:41:55 11/04/19 16 11/05/2015 pap, IG + HPV, cervi alon specimen adequacy: FORD Gambino SATIS FACTO RY FOR EVALU ATION . ENDOC ERVIC AL AND/O R SQUAM OUS METAP LASTI C CELLS (ENDO CERVI ALON COMPO NENT) ARE PRESE NT. Not Available [facility] ([facility]) [address] [place], [address], 11/07/2015 16:41:55 11/04/19 16 11/05/2015 pap, IG + HPV, cervi alon clinician provided ICD10: FORD Gambino Z01.4 19 Not Available [facility] ([facility]) [address] [place], [address], 11/07/2015 16:41:55 11/04/19 16 11/05/2015 pap, IG + HPV, cervi alon performed by: FORD GIVENS , CYTOT KEYANA Gambino (ASCP ) Not Available [facility] ([facility]) [address] [place], [address], 11/07/2015 16:41:55 11/04/19 16 11/05/2015 pap, IG + HPV, cervi alon . . Not Available [facility] ([facility]) [address] [place], [address], 11/07/2015 16:41:55 11/04/19 16 11/05/2015 pap, IG [...] TS DO OCCUR . Not Available [facility] ([facility]) [address] [place], [address], 11/07/2015 16:41:55 11/04/19 16 11/05/2015 pap, IG + HPV, cervi alon test methodology: COMMEN T THIS LIQUI D BASED THINP REP(R ) PAP TEST WAS SCREE NELLY WITH THE USE OF AN IMAGE GUIDE Diana Umana Not Available [facility] ([facility]) [address] [facility], [place], [address], 11/07/2015 16:41:55 11/04/19 16 11/07/2015 pap, IG + HPV, cervi alon HPV aptima NEGATI VE negati ve THIS TEST DETEC TS FOURT EEN HIGH- RISK HPV TYPES (16/1 8/31/ 33/35 /39/4 5/ 51/52 /56/5 8/59/ 66/68 ) WITHO UT DIFFE RENTI ATION . Not Available [facility] ([facility]) [address] [place], [address], 11/07/2015 16:41:55 11/04/19 16 11/06/2015 bacte rial vagin osis + vagin itis panel , vagin al trich vag by MANJIT NEGATI VE negati ve Not Available [facility] ([facility]) [address] [place], [address], 11/08/2015 06:11:53 11/04/19 16 11/07/2015 bacte rial vagin osis + vagin itis panel , vagin al atopobium vaginae LOW - 0 score Not Available [facility] ([facility]) [address] [place], [address], 11/08/2015 06:11:53 11/04/19 16 11/07/2015 bacte rial vagin osis + vagin itis panel , vagin al bvab 2 LOW - 0 score Not Available [facility] ([facility]) [address] [place], [address], 11/08/2015 06:11:53 11/04/19 16 11/07/2015 bacte rial [...] IS NOT NECES DARÍO. Not Available [facility] ([facility]) [address] [facility], [place], [address], 11/08/2015 06:11:53 11/04/19 16 11/07/2015 bacte rial vagin osis + vagin itis panel , vagin al kathy albicans, MANJIT NEGATI VE negati ve Not Available [facility] ([facility]) [address] [facility], [place], [address], 11/08/2015 06:11:53 11/04/19 16 11/07/2015 bacte rial [...] TO FLUCO NAZOL E. Not Available [facility] ([facility]) [address] [place], [address], 11/08/2015 06:11:53 11/04/19 16 11/07/2015 bacte rial vagin osis + vagin itis panel , vagin al chlamydia trachomatis, MANJIT NEGATI VE negati ve Not Available [facility] ([facility]) [address] [place], [address], 11/08/2015 06:11:53 11/04/19 16 11/07/2015 bacte rial vagin osis + vagin itis panel , vagin al neisseria gonorrhoeae, MANJIT NEGATI VE negati ve Not Available [facility] ([facility]) [address] [place], [address], 11/08/2015 06:11:53 11/04/19 16 11/07/2015 STI panel kathy albicans, MANJIT TNP DUPLI CLAUDIA PROCE DURE ORDER ED. Not Available [facility] ([facility]) [address] [place], [address], 11/08/2015 06:11:54 11/04/19 16 11/07/2015 STI panel kathy glabrata, MANJIT TNP DUPLI CLAUDIA PROCE DURE ORDER ED. Not Available [facility] ([facility]) [address] [facility], [place], [address], 11/08/2015 06:11:54 11/04/19 16 11/07/2015 STI panel kathy tropicalis, MANJIT NEGATI VE negati ve Not Available [facility] ([facility]) [address] [place], [address], 11/08/2015 06:11:54 11/04/19 16 11/07/2015 STI panel kathy parapsilosis , MANJIT NEGATI VE negati ve Not Available [facility] ([facility]) [address] [facility], [place], [address], 11/08/2015 06:11:54 11/04/19 16 11/07/2015 STI panel kathy lusitaniae, MANJIT NEGATI VE negati ve Not Available [facility] ([facility]) [address] [place], [address], 11/08/2015 06:11:54 11/04/19 16 11/07/2015 STI panel [...] IS NOT NECES DARÍO. Not Available [facility] ([facility]) [address] [facility], [place], [address], 11/08/2015 06:11:54 11/04/19 16 11/06/2015 HSV (1+2) DNA, qual, PCR, unspe cifie d speci men hsv 1 MANJIT NEGATI VE negati ve Not Available [facility] ([facility]) [address] [place], [address], 11/08/2015 06:11:54 11/04/19 16 11/06/2015 HSV (1+2) DNA, qual, PCR, unspe cifie d speci men hsv 2 MANJIT NEGATI VE negati ve Not Available [facility] ([facility]) [address] [place], [address], 11/08/2015 06:11:54 12/04/19 16 12/04/2015 yfn (risk [...] EZIO ON SURGE RY. Not Available [facility] ([facility]) [address] [place], [address], 12/06/2015 16:25:24 12/04/19 16 12/04/2015 yfn (risk [...] EZIO ON SURGE RY. Not Available [facility] ([facility]) [address] [place], [address], 12/06/2015 16:25:24 12/04/19 16 12/04/2015 yfn (risk [...] DIAGN OSTIC ASSAY . Not Available [facility] ([facility]) [address] [place], [address], 12/06/2015 16:25:24 12/04/19 16 12/06/2015 yfn (risk of ovari an malig ezio algor ithm score ), serum (lizzie enopa usal) cancer antigen 125 (Ca125) 16.6 U/mL 0.0-35 .0 ABBOT T CMIA METHO DOLOG Y Not Available [facility] ([facility]) [address] [facility], [place], [address], 12/06/2015 16:25:24 12/04/19 16 12/06/2015 yfn (risk of ovari an malig ezio algor ithm score ), serum (lizzie enopa usal) he4 42 pmol/ L 0-150 FUJIR EBIO EIA METHO DOLOG Y CA125 VALUE S OBTAI NELLY WITH DIFFE RENT ASSAY METHO DS OR KITS CANNO T BE USED INTER LARSON EABLY . Not Available [facility] ([facility]) [address] [facility], [place], [address], 12/06/2015 16:25:24 12/04/19 16 12/06/2015 yfn (risk of ovari an malig ezio algor ithm score ), serum (lizzie enopa usal) premenopausa l yfn 0.51 see below Not Available [facility] ([facility]) [address] [place], [address], 12/06/2015 16:25:24 12/04/19 16 12/06/2015 yfn (risk of ovari an malig ezio algor ithm score ), serum (lizzie enopa usal) postmenopaus al yfn 1.05 see below Not Available [facility] ([facility]) [address] [facility], [place], [address], 12/06/2015 16:25:24 05/13/20 16 05/15/2016 bacte rial vagin osis + vagin itis panel , vagin al trich vag by MANJIT NEGATI VE negati ve Not Available [facility] ([facility]) [address] [facility], [place], [address], 05/17/2016 06:04:50 05/13/20 16 05/15/2016 bacte rial vagin osis + vagin itis panel , vagin al chlamydia trachomatis, MANJIT NEGATI VE negati ve Not Available [facility] ([facility]) [address] [facility], [place], [address], 05/17/2016 06:04:50 05/13/20 16 05/15/2016 bacte rial vagin osis + vagin itis panel , vagin al neisseria gonorrhoeae, MANJIT NEGATI VE negati ve Not Available [facility] ([facility]) [address] [place], [address], 05/17/2016 06:04:50 05/13/20 16 05/16/2016 bacte rial vagin osis + vagin itis panel , vagin al kathy albicans, MANJIT NEGATI VE negati ve Not Available [facility] ([facility]) [address] [place], [address], 05/17/2016 06:04:50 05/13/20 16 05/16/2016 bacte rial [...] IS NOT NECES DARÍO. Not Available [facility] ([facility]) [address] [facility], [place], [address], 05/17/2016 06:04:50 05/13/20 16 05/17/2016 bacte rial vagin osis + vagin itis panel , vagin al atopobium vaginae LOW - 0 score Not Available [facility] ([facility]) [address] [facility], [place], [address], 05/17/2016 06:04:50 05/13/20 16 05/17/2016 bacte rial vagin osis + vagin itis panel , vagin al bvab 2 LOW - 0 score Not Available [facility] ([facility]) [address] [facility], [place], [address], 05/17/2016 06:04:50 05/13/20 16 05/17/2016 bacte rial [...] E DANIELA CTERI STICS DETER MINED BY [employer]. IT HAS NOT BEEN CLEAR ED OR APPRO KARSON BY THE FOOD AND DRUG ADMIN ISTRA TION. THE FDA HAS DETER MINED THAT SUCH CLEAR ANCE OR APPRO GABRIELLA IS NOT NECES DARÍO. Not Available [facility] ([facility]) [address] [facility], [place], [address], 05/17/2016 06:04:50 12/13/19 15 12/12/2014 ultra sound , pelvi c trans abdom inal No observ ation record ed. [facility] (Imaging) [address] [place], [address], 12/20/2014 19:01:30 09/04/20 15 09/02/2015 MAMMO , diagn ostic , digit al, bilat eral No observ ation record ed. [email or web address] [address], [place], [address], 05/13/2016 13:15:22 12/03/19 16 11/04/2015 CT, abdom en + pelvi s, w/ contr ast No observ ation record ed. [address] [facility] [address] [facility], [place], [address], 05/13/2016 16:18:12 12/06/19 16 12/06/2015 ultra sound , pelvi c trans abdom inal & trans vagin al No observ ation record ed. [address] ([employer]) [address] [place], [address], 05/13/2016 16:18:12 05/15/20 16 05/15/2016 US, trans vagin al No observ ation record ed. [email or web address] [place] [address] [address] [place], [address], 06/02/2016 09:44:41 Result Notes None recorded. Problems Name Problem SNOMED Code Status Onset Date Resolution Date Notes Provider Name and Address Organization Details Recorded Time Endometriosi s of uterus 59970211 Active Cosme Gloria null, [place] - [facility] 6 13:25:11 Menopausal syndrome 554291480 Active Valerie Quiroz MD Attn: Accounting, [address] [facility], [place], [address], [facility] - [facility] 6 18:44:51 Dermatophyto sis of the body Active Valerie Quiroz MD Attn: Accounting, [address] [place], [place], [address] [place] [address], [place] - [facility] 6 18:44:51 Candidiasis 97852416 Active Valerie Quiroz MD Attn: Accounting, [address] [place], [place], [address] [place] [address], [facility] - [facility] 6 18:44:51 Headache 22007256 Active Valerie Quiroz MD Attn: Accounting, [address] [place], [place], [address] [place] [address], [place] - [facility] 6 18:44:51 Irritable bowel syndrome 49425692 Active Valerie Quiroz MD Attn: Accounting, [address] [place], [place], [address] [place] [address], [facility] - [facility] 6 18:44:51 Left sided abdominal pain 361609684 Active Valerie Quiroz MD Attn: Accounting, [address] [place], [place], [address] [place] [address], [facility] - [facility] 6 18:44:51 Chronic pelvic pain of female 694002297 Active Natanael Valentino null, [place] - [facility] 6 10:54:30 Vaginitis 89234987 Active Valerie Quiroz MD Attn: Accounting, [address] [place], [place], [address] [place] [address], [place] - [facility] 6 18:44:51 Uterine leiomyoma 24470568 Active Cosme Juani null[place] - [facility] 6 13:25:11 Endometrium thickened 929898847 Active Cosme Juani null[place] - [facility] 13:25:11 Problem Notes None recorded. Procedures Surgical History Date Name Laterality Status Provider Name and Address Organization Details Recorded Time 11/04/19 16 Date of Last Pap Smear completed Laure Pedraza MA [place] - [facility] 05/13/2016 15:06:51 09/13/19 09 Cholecystectomy completed Brenda Van MA [place] - [facility] 10/30/2014 10:26:54 09/13/19 09 Dilation and Curettage completed Brenda Van MA [place] - [facility] 12/10/2014 12:17:22 12/21/19 08 Caesarean Section completed Laure Pedraza MA [facility] 12/20/2014 15:28:58 09/13/19 03 Orthopedic Surgery completed Brenda Van MA [facility] 12/10/2014 12:17:22 09/13/19 03 Breast Surgery completed Brenda Van MA [facility] 12/10/2014 12:23:51 Laparoscopy completed Brenda Van MA [facility] 12/10/2014 12:17:22 Imaging Results Imaging Date Name Status LastModified by Organization Details LastModified Time 12/12/2014 ultrasound, pelvic transabdominal completed [facility] (Imaging) [address] [place], [address], 12/20/2014 19:01:30 09/02/2015 MAMMO, diagnostic, digital, bilateral completed [email or web address] [facility] [address], [address], 05/13/2016 13:15:22 11/04/2015 CT, abdomen + pelvis, w/ contrast completed [address] [facility] [address] , [place], [address], 05/13/2016 16:18:12 12/06/2015 ultrasound, pelvic transabdominal & transvaginal completed [address] ([employer]) [address] [place], [address], 05/13/2016 16:18:12 05/15/2016 US, transvaginal completed [address] [place], [address], 06/02/2016 09:44:41 Procedure Notes None recorded. Medical Equipment None Reported. Allergies Allergen ID Allergen Name Allergen Category Reaction Reaction Severity Criticality Documentation Date Start Date Code Code System Note Provider Name and Address Organization Details Recorded Time 60034 codeine medicatio n itching moderate Not available [...] Details Last Updated DateTime 11/04/2015 177.8 cm 75199.28 926 g 28.4 kg/m2 130 mm[Hg] 92 mm[Hg] Rebecca Slater MA [facility] [address] 6 15:13:22 Date Recorded Body weight Body height Body mass index (BMI) Systolic blood pressure Diastolic blood pressure Provider Name and Address Organization Details Last Updated DateTime 05/13/2016 49922.88 163 g 177.8 cm 28.6 kg/m2 128 mm[Hg] 86 mm[Hg] Laure Pedraza MA [facility] [address] 6 15:05:42 Date Recorded Body height Body mass index (BMI) Body weight Systolic blood pressure Diastolic blood pressure Provider Name and Address Organization Details Last Updated DateTime 06/03/2016 177.8 cm 28.7 kg/m2 22623.47 4 g 118 mm[Hg] 82 mm[Hg] Rebecca Slater MA [facility] [address] 6 10:36:57 Date Recorded Body height Body weight Body mass index (BMI) Systolic blood pressure Diastolic blood pressure Provider Name and Address Organization Details Last Updated DateTime 06/10/2016 177.8 cm 84966.88 163 g 28.6 kg/m2 130 mm[Hg] 92 mm[Hg] Rebecca Slater MA [facility] 6 12:34:41 Date Recorded Body height Body mass index (BMI) Body weight Systolic blood pressure Diastolic blood pressure Provider Name and Address Organization Details Last Updated DateTime 12/20/2014 177.8 cm 28.7 kg/m2 25160.47 4 g 124 mm[Hg] 88 mm[Hg] Laure Pedraza MA [facility] [address] 5 15:31:11 Social History Question Answer Notes LastModified by Organizat ion Details LastModified Time Tobacco Smoking Status Never Smoker Brenda Van MA [facility], [facility] [address] 10/30/2014 10:26:55 Do You Have An Advance Directive? No [email or web address] Information not available 10/30/2014 Is Blood Transfusion Acceptable In An Emergency? Yes [email or web address] Information not available 10/30/2014 What Is Your Level Of Caffeine Consumption? None [email or web address] Information not available 10/30/2014 How Much Tobacco Do You Chew? None [email or web address] Information not available 10/30/2014 What Type Of Diet Are You Following? REGULAR [email or web address] Information not available 10/30/2014 Education 4 Year College [email or web address] Information not available 10/30/2014 Live Alone Or With Others? With Others [email or web address] Information not available 10/30/2014 How Many Children Do You Have? 1 [email or web address] Information not available 10/30/2014 Performs Monthly Self-breast Exam? Yes Information no t available 10/30/2014 Do You Use Protection During Sex? Usually [email or web address] Information not available 10/30/2014 What Is Your Relationship Status? [email or web address] Information not available 10/30/2014 Seat Belts Used Routinely Yes [email or web address] Information not available 10/30/2014 Are You Sexually Active? Yes [email or web address] Information not available 10/30/2014 General Stress Level High [email or web address] Information not available 10/30/2014 Do You Use Sunscreen Routinely? Yes [email or web address] Information not available 10/30/2014 Sex: Unknown Functional Status Question Answer Note LastModified by Organizat ion Details LastModified Time What is your level of alcohol consumption? None [email or web address] Information not available 10/30/2014 Are you currently employed? 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 Occasional [email or web address] Information not available 10/30/2014 Mental Status None [...] Disorder N Colon Polyps N Heart Attack (NH) N Diabetes N Cardiomyopathy N Blood Transfusions [...] SNOMED-CT Code Diagnosis ICD10 Code Diagnosis Note [id number] [facility] [address] [place] [address] [phone] 10/30/2014 09:49:37 10/30/2014 10:56:31 Gynecologic examination [id number] 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 [id number] [facility] [address] [place] [address] [phone] 12/10/2014 11:20:55 12/10/2014 13:01:08 Gynecologic examination [id number] 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 836146363 Streptococcus carrier [id number] Endometrio sis of uterus 95666105 [id number] [facility] ([facility]) [address] [place] [address] [phone] 12/20/2014 14:54:18 12/23/2014 09:31:47 Streptococcus carrier 411452111 Menopausal syndrome 616627017 Dermatophy tosis of the body 872457373 Candidiasis 20512319 [id number] [facility] [address] [place] [address] [phone] 11/04/2015 14:31:13 11/04/2015 17:25:17 Gynecologic examination 54870220 Z01.419 Irritable bowel syndrome 73875608 K58.9 Menopausal syndrome 1237 09226 N95.9 Colitis 96969519 K52.9 [id number] MD Liz Guzman ([employer]) [address] [place] [address] [phone] 05/13/2016 13:52:53 05/14/2016 10:32:25 Candidiasis 99716332 B37.9 Chronic pe lvic pain of female 223181632 R10.2 Vaginitis 59075526 N76.0 [id number] MD Liz Rey ([employer]) [address] [place] [address] [phone] 06/03/2016 09:47:51 06/05/2016 11:46:20 Uterine leiomyoma 43317665 D25.9 Endometrium thickened 44 3249348 R93.8 [id number] MD Liz Long ([employer]) [address] [place] [address] [phone] 06/10/2016 11:13:23 06/11/2016 17:50:59 Endometrium thickened 219989232 R93.8 Chronic pe lvic pain of female 958960739 R10.2 Uterine leiomyoma 280663 05 D25.9 Health Concerns Section Related Observation LastModified by Organization Detai ls LastModified Time None Recorded Concern Status LastModified by Organization Details LastModified Time None Recorded Advance Directives Directive N: Payers Encounter Date Sequence Insurance Name Policy Number Policy Mohamud Covered Member ID Mohamud Member ID Guarantor Name 12/20/2014 1 [facility] Alana Clau [id number] Alana Clau 11/04/2015 1 [employer] [id number] Catrachito Olguin Jr [id number] Alana Clau 05/13/2016 1 [employer] [id number] Catrachito Olguin Jr [id number] Alana Clau 06/03/2016 1 [employer] [id number] Catrachito Olguin Jr [id number] Alana Clau 06/10/2016 1 [employer] [id number] Catrachito Olguin Jr [id number] Alana Clau Notes Date Note Type [...] Followed with yearly pap smears Cosme blum [facility] [address] 11/04/2015 17:15:28 06/03/2016 text/html HERE FOR TEST RESULTS. She said she had an episode of post menopausal bleeding 2 years ago and endometrial biopsy was negative as per patient. Denies any bleeding since then Valerie Quiroz MD Attn: Accounting,[address] [place], [phone], [facility] 06/03/2016 18:49:56 06/10/2016 text/html Presenting for consultation with Dr. Gloria, Re: endometrial thickening and pelvic pain. I am standing in for Dr. Gloria as he was called away for Emergency. Natanael Valentino viktoria [facility] [address] 06/11/2016 10:54:34 OBGyn Episode Ob Episode Information Episode Created Date Number of Fetuses Patient Bloodtype Patient rh Status Prepregnancy Weight lbs Domestic Partner Domestic Partner Phone Father Name Medical Technical Writer Status 10/30/19 15 1 CLOSED Fetus Data First Name Last Name Admitted to NICU Weight (g) Sex Living Outcome Pediatric Complications Fetus ID Race Codes Race Delivery Type 3628.73 6 F Full Term [id number] Ole Calculation Initial Ole Date Initial Exam [...] Complications Tubal Sterilization Discharge Date Comments 8 [facility] anil [place] Discharge Information Feeding Method Contraceptive Method Maternal HG B and HCT Levels
--- OUTSIDE RECORDS SUMMARY | 2025-01-30 07:35 | XMS_ITS | Data Portability ---
Author Organization [facility] Address [address] [place] [address] Care Team Providers Care Paleobotanist Name Role Phone NEAL HOLLOWAY Primary Care Provider [phone] Assessment No assessment recorded. Plan of Treatment Reminders Order Date Submit Date Provider Last Modified By Organization Details Last Modified Time Details Appointments None recorded. Lab TSH + free T4, serum 2023 024 JACKSON Misa, [address], [address], [place], [address], 4 05:11:33 CBC w/ auto diff 2023 024 JACKSON [facility], [address], [place], [address], 4 05:11:35 CMP, serum or plasma 2023 024 JACKSON [facility], [address], [address], [place], [address], 4 05:11:34 vitamin B12 + folate, serum or blood 2023 024 JACKSON Misa, [address], [address], [place], [address], 4 05:11:34 magnesium, serum or plasma 2023 024 [facility], [address], [address], [place], [address], 4 05:11:34 lipid panel, serum 2023 024 JACKSON [facility], [address], [address], [place], [address], 4 05:11:35 vitamin D, 25-hydroxy, total, serum 2023 024 JACKSON [facility], [address], [place], [address], 4 05:11:35 HbA1c (hemoglobin A1c), blood 2023 024 JACKSON [facility], [address], [address], [place], [address], 4 05:11:34 Referral orthopedic surgeon referral 2024 025 [email or web address] Jersey Garay, [address], [address], [place], [address], 5 12:53:01 orthopedic surgeon referral 2023 024 ANA LILIA Lomax MD, [address], [address], [place], [address], 4 11:53:32 Procedures None recorded. Surgeries None recorded. Imaging None recorded. Medication Orders None recorded. Patient TargetsNo targets recorded. Patient Instructions Encounter Date Encounter Id Patient Instructions Last Modified By Organization Details Last Modified Time 09/25/2024 [id number] A healthy lifestyle: care instructions [email or web address] Not [...] 176 mg/dL 100-19 9 Not Available [facility] ([facility]) [address] [place], [address], 02/05/2024 11:13:27 02/04/20 24 02/05/2024 LIPID PANEL W/ CHOL/ HDL RATIO triglyceride s 99 mg/dL 0-149 Not Available [facility] ([facility]) [address] [place], [address], 02/05/2024 11:13:27 02/04/20 24 02/05/2024 LIPID PANEL W/ CHOL/ HDL RATIO HDL cholesterol 44 mg/dL >39 Not Available [facility] ([facility]) [address] [place], [address], 02/05/2024 11:13:27 02/04/20 24 02/05/2024 LIPID PANEL W/ CHOL/ HDL RATIO VLDL cholesterol alvaro 18 mg/dL 5-40 Not Available [facility] ([facility]) [address] [place], [address], 02/05/2024 11:13:27 02/04/20 24 02/05/2024 LIPID PANEL W/ CHOL/ HDL RATIO LDL chol calc ([facility]) 114 mg/dL 0-99 above high normal Not Available [facility] ([facility]) [address] [place], [address], 02/05/2024 11:13:27 02/04/20 24 02/05/2024 LIPID PANEL W/ CHOL/ HDL RATIO T. chol/HDL ratio 4.0 ratio 0.0-4. 4 T. Chol/ HDL Ratio Men Women 1/2 Avg.R isk 3.4 3.3 Avg.R isk 5.0 4.4 2X Avg.R isk 9.6 7.1 3X Avg.R isk 23.4 11.0 Not Available [facility] ([facility]) [address] [place], [address], 02/05/2024 11:13:27 02/04/20 24 02/05/2024 TSH+F REE T4 TSH 1.230 uIU/m L 0.450- 4.500 Not Available [facility] ([facility]) [address] [facility] [place], [address], 02/05/2024 11:13:28 02/04/20 24 02/05/2024 TSH+F REE T4 T4,free(dire ct) 1.37 NG/dL 0.82-1 .77 Not Available [facility] ([facility]) [address] [facility] [place], [address], 02/05/2024 11:13:28 02/04/20 24 02/05/2024 COMP. METAB OLIC PANEL (14) glucose 96 mg/dL 70-99 Not Available [facility] ([facility]) [address] [facility] [place], [address], 02/05/2024 11:13:28 02/04/20 24 02/05/2024 COMP. METAB OLIC PANEL (14) BUN 13 mg/dL 6-24 Not Available [facility] ([facility]) [address] [facility] [place], [address], 02/05/2024 11:13:28 02/04/20 24 02/05/2024 COMP. METAB OLIC PANEL (14) creatinine 0.73 mg/dL 0.57-1 .00 Not Available [facility] ([facility]) [address] [facility] [place], [address], 02/05/2024 11:13:28 02/04/20 24 02/05/2024 COMP. METAB OLIC PANEL (14) eGFR 95 mL/mi n/1.7 3 >59 Not Available [facility] ([facility]) [address] [facility] [place], [address], 02/05/2024 11:13:28 02/04/20 24 02/05/2024 COMP. METAB OLIC PANEL (14) BUN/creatini ne ratio 18 9-23 Not Available [facility] ([facility]) [address] [place], [address], 02/05/2024 11:13:28 02/04/20 24 02/05/2024 COMP. METAB OLIC PANEL (14) sodium 137 mmol/ L 134-14 4 Not Available [facility] ([facility]) [address] [place], [address], 02/05/2024 11:13:28 02/04/20 24 02/05/2024 COMP. METAB OLIC PANEL (14) potassium 4.2 mmol/ L 3.5-5. 2 Not Available [facility] ([facility]) [address] [facility], [place], [address], 02/05/2024 11:13:28 02/04/20 24 02/05/2024 COMP. METAB OLIC PANEL (14) chloride 99 mmol/ L 96-106 Not Available [facility] ([facility]) [address] [place], [address], 02/05/2024 11:13:28 02/04/20 24 02/05/2024 COMP. METAB OLIC PANEL (14) carbon dioxide, total 24 mmol/ L 20-29 Not Available [facility] ([facility]) [address] [place], [address], 02/05/2024 11:13:28 02/04/20 24 02/05/2024 COMP. METAB OLIC PANEL (14) calcium 9.9 mg/dL 8.7-10 .2 Not Available [facility] ([facility]) [address] [place], [address], 02/05/2024 11:13:28 02/04/20 24 02/05/2024 COMP. METAB OLIC PANEL (14) protein, total 7.0 g/dL 6.0-8. 5 Not Available [facility] ([facility]) [address] [facility] [place], [address], 02/05/2024 11:13:28 02/04/20 24 02/05/2024 COMP. METAB OLIC PANEL (14) albumin 4.4 g/dL 3.8-4. 9 Not Available [facility] ([facility]) [address] [place], [address], 02/05/2024 11:13:28 02/04/20 24 02/05/2024 COMP. METAB OLIC PANEL (14) globulin, total 2.6 g/dL 1.5-4. 5 Not Available [facility] ([facility]) [address] [place], [address], 02/05/2024 11:13:28 02/04/20 24 02/05/2024 COMP. METAB OLIC PANEL (14) A/G ratio 1.7 1.2-2. 2 Not Available [facility] ([facility]) [address] [place], [address], 02/05/2024 11:13:28 02/04/20 24 02/05/2024 COMP. METAB OLIC PANEL (14) bilirubin, total 0.6 mg/dL 0.0-1. 2 Not Available [facility] ([facility]) [address] [place], [address], 02/05/2024 11:13:28 02/04/20 24 02/05/2024 COMP. METAB OLIC PANEL (14) alkaline phosphatase 80 IU/L 44-121 Not Available [facility] ([facility]) [address] [place], [address], 02/05/2024 11:13:28 02/04/20 24 02/05/2024 COMP. METAB OLIC PANEL (14) AST (SGOT) 18 IU/L 0-40 Not Available [facility] ([facility]) [address] [facility] [place], [address], 02/05/2024 11:13:28 02/04/20 24 02/05/2024 COMP. METAB OLIC PANEL (14) ALT (SGPT) 17 IU/L 0-32 Not Available [facility] ([facility]) [address] [facility] [place], [address], 02/05/2024 11:13:28 02/04/20 24 02/05/2024 VITAM IN B12 AND FOLAT E vitamin B12 870 pg/mL 232-12 45 Not Available [facility] ([facility]) [address] [facility] [place], [address], 02/05/2024 11:13:28 02/04/20 24 02/05/2024 VITAM IN B12 AND FOLAT E folate (folic acid), serum >20.0 NG/mL >3.0 A serum folat e yen ntrat ion of less than 3.1 ng/mL is consi dered to repre sent clini alvaro defic iency . Not Available [facility] ([facility]) [address] [facility], [place], [address], 02/05/2024 11:13:28 02/04/2002/05/2024 HEMOG LOBIN A1C hemoglobin A1C 5.6 % 4.8-5. 6 Predi abete s: 5.7 - 6.4 Diabe aleja: >6.4 Glyce jordan contr ol for adult s with diabe aleja: <7.0 Not Available [facility] ([facility]) [address] [place], [address], 02/05/2024 11:13:29 02/04/2002/05/2024 MAGNE SIUM magnesium 1.9 mg/dL 1.6-2. 3 Not Available [facility] ([facility]) [address] [place], [address], 02/05/2024 11:13:29 02/04/2002/05/2024 CBC WITH DIFFE RENTI AL/PL ATELE T WBC 4.2 x10e3 /uL 3.4-10 .8 Not Available [facility] ([facility]) [address] [place], [address], 02/05/2024 11:13:29 02/04/20 24 02/05/2024 CBC WITH DIFFE RENTI AL/PL ATELE T RBC 4.41 x10e6 /uL 3.77-5 .28 Not Available [facility] ([facility]) [address] [place], [address], 02/05/2024 11:13:29 02/04/2002/05/2024 CBC WITH DIFFE RENTI AL/PL ATELE T hemoglobin 12.9 g/dL 11.1-1 5.9 Not Available [facility] ([facility]) [address] [place], [address], 02/05/2024 11:13:29 02/04/20 24 02/05/2024 CBC WITH DIFFE RENTI AL/PL ATELE T hematocrit 40.2 % 34.0-4 6.6 Not Available [facility] ([facility]) [address] [place], [address], 02/05/2024 11:13:29 02/04/2002/05/2024 CBC WITH DIFFE RENTI AL/PL ATELE T MCV 91 fL 79-97 Not Available [facility] ([facility]) [address] [place], [address], 02/05/2024 11:13:29 02/04/2002/05/2024 CBC WITH DIFFE RENTI AL/PL ATELE T MCH 29.3 pg 26.6-3 3.0 Not Available [facility] ([facility]) [address] [place], [address], 02/05/2024 11:13:29 02/04/2002/05/2024 CBC WITH DIFFE RENTI AL/PL ATELE T MCHC 32.1 g/dL 31.5-3 5.7 Not Available [facility] ([facility]) [address] [facility], [place], [address], 02/05/2024 11:13:29 02/04/20 24 02/05/2024 CBC WITH DIFFE RENTI AL/PL ATELE T RDW 12.1 % 11.7-1 5.4 Not Available [facility] ([facility]) [address] [facility], [place], [address], 02/05/2024 11:13:29 02/04/20 24 02/05/2024 CBC WITH DIFFE RENTI AL/PL ATELE T platelets 326 x10e3 /uL 150-45 0 Not Available [facility] ([facility]) [address] [facility], [place], [address], 02/05/2024 11:13:29 02/04/20 24 02/05/2024 CBC WITH DIFFE RENTI AL/PL ATELE T neutrophils 57 % notest ab. Not Available [facility] ([facility]) [address] [facility], [place], [address], 02/05/2024 11:13:29 02/04/20 24 02/05/2024 CBC WITH DIFFE RENTI AL/PL ATELE T lymphs 29 % notest ab. Not Available [facility] ([facility]) [address] [facility], [place], [address], 02/05/2024 11:13:29 02/04/20 24 02/05/2024 CBC WITH DIFFE RENTI AL/PL ATELE T monocytes 10 % notest ab. Not Available [facility] ([facility]) [address] [facility], [place], [address], 02/05/2024 11:13:29 02/04/20 24 02/05/2024 CBC WITH DIFFE RENTI AL/PL ATELE T eos 3 % notest ab. Not Available [facility] ([facility]) [address] [facility], [place], [address], 02/05/2024 11:13:29 02/04/20 24 02/05/2024 CBC WITH DIFFE RENTI AL/PL ATELE T basos 1 % notest ab. Not Available [facility] ([facility]) [address] [facility], [place], [address], 02/05/2024 11:13:29 02/04/20 24 02/05/2024 CBC WITH DIFFE RENTI AL/PL ATELE T neutrophils (absolute) 2.4 x10e3 /uL 1.4-7. 0 Not Available [facility] ([facility]) [address] [facility], [place], [address], 02/05/2024 11:13:29 02/04/20 24 02/05/2024 CBC WITH DIFFE RENTI AL/PL ATELE T lymphs (absolute) 1.2 x10e3 /uL 0.7-3. 1 Not Available [facility] ([facility]) [address] [facility], [place], [address], 02/05/2024 11:13:29 02/04/20 24 02/05/2024 CBC WITH DIFFE RENTI AL/PL ATELE T monocytes(ab solute) 0.4 x10e3 /uL 0.1-0. 9 Not Available [facility] ([facility]) [address] [place], [address], 02/05/2024 11:13:29 02/04/20 24 02/05/2024 CBC WITH DIFFE RENTI AL/PL ATELE T eos (absolute) 0.1 x10e3 /uL 0.0-0. 4 Not Available [facility] ([facility]) [address] [facility], [place], [address], 02/05/2024 11:13:29 02/04/20 24 02/05/2024 CBC WITH DIFFE RENTI AL/PL ATELE T baso (absolute) 0.0 x10e3 /uL 0.0-0. 2 Not Available [facility] ([facility]) [address] [facility], [place], [address], 02/05/2024 11:13:29 02/04/20 24 02/05/2024 CBC WITH DIFFE RENTI AL/PL ATELE T immature granulocytes 0 % notest ab. Not Available [facility] ([facility]) [address] [facility], [place], [address], 02/05/2024 11:13:29 02/04/2002/05/2024 CBC WITH DIFFE RENTI AL/PL ATELE T immature grans (abs) 0.0 x10e3 /uL 0.0-0. 1 Not Available [facility] ([facility]) [address] [place], [address], 02/05/2024 11:13:29 02/04/20 24 02/05/2024 VITAM IN [...] Rosa triplett [place]: [facility] . 2. Abe whelan MF, Binkl ey [place], Phuong off-F errar i KENT, et al. Evalu ation , treat ment, and preve ntion of vitam in D defic iency : an Endoc rine Socie ty clini alvaro pract ice guide line. JCEM. 2010; 96(7) :1911 -30. Not Available [facility] ([facility]) [address], [place], [address], 02/05/2024 11:13:30 07/20/20 24 07/20/2024 pap, IG + HR HPV Pap negati ve Not Available Not Available 17:25:24 04/03/20 24 04/03/2024 CT, abdom en + pelvi s, w/ contr ast No observ ation record ed. [address] [facility], [place], [address], 04/05/2024 23:03:03 09/14/19 25 09/12/2024 CT, abdom en + pelvi s, w/ contr ast No observ ation record ed. [address] [facility], [place], [address], 09/14/2024 17:38:23 10/26/19 25 10/26/2024 XR, knee No observ ation record ed. [address], [place], [address], 10/27/2024 13:57:16 01/30/20 25 01/16/2025 imagi ng/di agnos tic resul t No observ ation record ed. [address] [facility], [place], [address], 01/29/2025 10:47:35 Result Notes None recorded. Problems Name Problem SNOMED Code Status Onset Date Resolution Date Notes Provider Name and Address Organization Details Recorded Time Vitamin D deficiency 92761669 Active 2023 Portia blum, [place] - [facility] 4 09:56:56 Diverticular disease 380610084 Active 2023 Portia [place] [facility] 4 09:57:10 Spondylolisthe sis 439749504 Active 2023 Portia blum, [place] - [facility] 4 09:57:25 Body mass index 25-29 - overweight 836858803 Active 2024 Jose Nava MA null, [place] - [facility] 5 12:28:58 Overweight 393948290 Active 2024 TYRA Sol Attn: Kirk sterling,[address] [facility], [place], [address], [facility] - [facility] 5 21:22:48 Problem Notes None recorded. Procedures Surgical History Date Name Laterality Status Provider Name and Address Organization Details Recorded Time 04/05/20 23 [facility] 10:03:42 09/13/19 cholecystectomy completed Portia [facility] 12/20/2023 10:00:26 09/13/19 08 [facility] 10:00:36 09/13/19 00 [facility]23 10:00:55 Imaging Results Imaging Date Name Status LastModified by Organiz ation Details LastModified Time 04/03/2024 CT, abdomen + pelvis, w/ contrast completed [address], [address], 04/05/2024 23:03:03 09/12/2024 CT, abdomen + pelvis, w/ contrast completed [address], [address], 09/14/2024 17:38:23 10/26/2024 XR, knee completed [address], [address], 10/27/2024 13:57:16 01/16/2025 imaging/diagn ostic result active [address], [address], 01/29/2025 10:47:35 Procedure Notes None recorded. Medical Equipment None Reported. Allergies Allergen ID Allergen Name Allergen Category Reaction Reaction Severity Criticality Documentation Date Start Date Code Code System Note Provider Name and Address Organization Details Recorded Time 362980 codeine medicatio n rash Not available Not available 12/20/2023 2700 RxNorm Portia blum [place] - [facility] 4 09:56:40 Medications Name Sig Start Date Stop [...] completed Not Available Not Available Not Available mupirocin 2 % topical ointment APPLY TOPICALLY TWICE A DAY active Not Available Not Available No t Available diclofenac sodium 50 mg tablet,анна yed release TAKE 1 TABLET BY MOUTH TWICE A DAY 01/12 completed Not Available Not Available Not Available hydroxychlo roquine 200 mg tablet Take 1 tablet twice a day by oral route for 10 days. 01/27 completed Not Available Not Available Not Available celecoxib 100 mg capsule TAKE 1 CAPSULE BY MOUTH EVERY DAY STOP ALEVE 01/29 completed Not Available Not Available Not Available ondansetron 4 mg disintegrat ing tablet DISSOLVE 1 TABLET IN MOUTH EVERY 8 HOURS NEEDED FOR NAUSEA AND VOMITING 09/25 completed Not Available Not Available Not Available cefdinir 300 mg capsule TAKE 1 CAPSULE BY MOUTH TWICE A DAY 01/13 /2025 completed Not Available Not Available Not Available [...] 4 20 /min 177.8 cm 26.5 kg/m2 40456.2 3 g 97 % 97 % 78 /min 142 mm[Hg] 88 mm[Hg] 132 mm[Hg] 78 mm[Hg] Jose Nava MA [facility] 4 09:50:46 Date Recorded Body height Body mass index (BMI) Body weight Respiratory rate Oxygen saturation Oxygen saturation in Arterial blood by Pulse oximetry Heart rate Systolic blood pressure Diastolic blood pressure Provider Name and Address Organization Details Last Updated DateTime 5 177.8 cm 26.8 kg/m2 60826.7 7 g 20 /min 98 % 98 % 87 /min 130 mm[Hg] 82 mm[Hg] Jose Nava MA [facility] 5 12:42:56 Date Recorded Systolic blood pressure Diastolic blood pressure Provider Name and Address Organization Details Last Updated DateTime 09/25/2024 128 mm[Hg] 82 mm[Hg] TYRA Sol Attn: Accounting,[address] [place], [address], [facility] 09/25/2024 12:52:24 Date Recorded Body height Body mass index (BMI) Body weight Heart rate Oxygen saturation Oxygen saturation in Arterial blood by Pulse oximetry Systolic blood pressure Diastolic blood pressure Provider Name and Address Organization Details Last Updated DateTime 177.8 cm 27.5 kg/m2 08711.6 6 g 93 /min 98 % 98 % 128 mm[Hg] 66 mm[Hg] Dagoberto Ornelas MA [facility] 09:59:56 Date Recorded Respiratory rate Systolic blood pressure Diastolic blood pressure Provider Name and Address Organization Details Last Updated DateTime 01/12/2025 16 /min 140 mm[Hg] 80 mm[Hg] TYRA Sol Attn: Accounting, [address] [place], [address], [facility] 01/12/2025 10:10:08 Social History Question Answer Notes LastModified by Organizat ion Details LastModified Time Tobacco Smoking Status Never Smoker Portia blum, [facility] 12/20/2023 09:59:00 Are You Blind Or Do You Have Difficulty Seeing? No Glasses Information n ot available 01/28/2024 What Is Your Level Of Caffeine Consumption? None [email or web address] Information not available 12/20/2023 In The 14 Days Before Symptom Onset, Have You Had Close Contact With A Laboratory-confirm ed COVID-19 While That Case Was Ill? No [email or web address] Information n ot available 12/20/2023 In The 14 Days Before Symptom Onset, Have You Had Close Contact With A Person Who Is Under Investigation For COVID-19 While That Person Was Ill? No Information not available 12/20/2023 Have You Been To An Area Known To Be High Risk For COVID-19? No Information not available 12/20/2023 Are You Deaf Or Do You Have Serious Difficulty Hearing? No Information not available 01/28/2024 What Type Of Diet Are You Following? REGULAR [email or web address] Information n ot available 12/20/2023 Are There Any Guns Present In Your Home? No Information not available 09/25/2024 What Was The Date Of Your Most Recent Tobacco Screening? 09/25/2024 Information not available 09/25/2024 What Is Your Relationship Status? [email or web address] Information not available 12/20/2023 Do You Use Your Seat Belt Or Car Seat Routinely? Yes [email or web address] Information not available 12/20/2023 Do You Have Smoke And Carbon Monoxide Detectors In Your Home? Yes [email or web address] Information not available 12/20/2023 Do You Use Sunscreen Routinely? Yes [email or web address] Information not available 12/20/2023 Has Tobacco Cessation Counseling Been Provided? Yes Information not available 01/28/2024 On What Date Was Tobacco Cessation Counseling Provided? 09/25/2024 Information not available 09/25/2024 Sex: Female Functional Status Question Answer Note LastModified by Organizat ion Details LastModified Time Do you use any illicit or recreational drugs? No [email or web address] Information not available 12/20/2023 Do you or have you ever used any other forms of tobacco or nicotine? No [email or web address] Information not available 12/20/2023 What is your level of alcohol consumption? None Information not available 12/20/2023 Are you currently employed? No [email or web address] Information not available 12/20/2023 Are you able to care for yourself? Yes [email or web address] Information not available 12/20/2023 What is your exercise level? None [email or web address] Information not available 12/20/2023 Mental Status None recorded. Family History Relationship Description Onset Age of this Age Resolved Age Notes LastModified by Organization Details LastModified Time Father Diabetes mellitus [email or web address] Not available 12/19 09:57:45 Father Hypertensive disorder [email or web address] Not available 2023 11:48:07 Brother Malignant neoplasm of brain 58 [email or web address] Not available 12/19 09:58:02 Brother Hypertensive disorder [...] Skin Problems N Anemia N Heart Attack ([place]) N Anxiety Disorder N Diabetes N Muscle, [...] SNOMED-CT Code Diagnosis ICD10 Code Diagnosis Note [id number] Jonah Sherman MD [facility] [employer] [address] [place] [address] 01/28/2024 09:24:58 01/28/2024 11:10:07 Pain of right hip joint 9126558455 27104 M25.551 as above. Osteoarthritis of hip 23 1870785 M16.9 refer to Orthopedic s for evaluation and options for her known OA of right hip Cholesterol screening 27 1539165 Z13.220 fasting lipids due Diabetes m ellitus screening 797544405 Z13.1 a1c screening due Thyroid di sorder screening 985775501 Z13.29 TFT panel due Long-term drug therapy 773951607 Z79.899 routine cmp, cbc, b12, folate and magnesium labs ordered. Vitamin D deficiency 347 41615 E55.9 pt requests Vit D lab order [id number] Jonah Sherman MD [facility] [employer] [address] [place] [address] 09/25/2024 12:16:48 09/25/2024 13:06:10 Body mass index 25-29 - overweight 815468747 Z68.26 BMI is 26.8 Overweight 585100782 E66 .3 Diverticul itis of sigmoid colon 066701319 K57.32 Patient has improved well on Cipro and Flagyl combinatio n, advance diet slowly Pain of knee region 1003 473811 M25.569 pain in left medial knee after twisting wrong recently. Refer to orthopedic s [id number] Jonah Sherman MD [facility] [employer] [address] [place] [address] 01/12/2025 09:28:42 01/12/2025 10:39:00 Preprocedural examination done 3265208311 12288 Z01.818 Preop exam completed. she will be getting preop labs and ekg next week for preop Osteoarthr itis of right hip joint 4914304130 83005 M16.11 planned on february 08 for JOSÉ MIGUEL. Nasal congestion 8557969 0 R09.81 Health Concerns Section Related Observation LastModified by Organization Detai ls LastModified Time None Recorded Concern Status LastModified by Organization Details LastModified Time None Recorded Advance Directives Directive None Recorded Payers Encounter Date Sequence Insurance Name Policy Number Policy Mohamud Covered Member ID Mohamud Member ID Guarantor Name 01/28/2024 1 [facility] [id number] Catrachito Olguin [id number] Alana Olguin 09/25/2024 1 [facility] [id number] Catrachito Olguin [id number] Alana Olguin Notes Date Note Type Note [...] that leg. TYRA Sol Attn: Accounting,[address] [place], [address], [facility] - [facility] 02/13/2024 20:45:09 09/25/2024 text/html Patient is here [...] referral placed TYRA Sol Attn: Accounting,[address] [place], [address], [facility] - [facility] 10/12/2024 21:23:03 OBGyn Episode No OBEpisode recorded.
--- OUTSIDE RECORDS SUMMARY | 2025-01-30 07:35 | XMS_ITS | Clinical Summary ---
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
--- OUTSIDE RECORDS SUMMARY | 2025-01-30 07:35 | XMS_ITS | Clinical Summary ---
Author Organization [facility] Address [address] [place] [address] Care Team Providers Care Senior Mechanical Technician Name Role Phone Loni Marks Primary Care Pr ovider Source Comments [facility],non-owned Affiliates and Associated Physician Practices is amultiple site organization consisting of ambulatory clinics and hospital sitesin [place], [place], [place] and [place]. This disclosure is being madepursuant to the Care Everywhere program and may not contain all information available regarding this patient. Last updated 18.[facility] Allergies Active Allergy Reactions Criticality Noted Date Comments Codeine Itching Medium 06/20/2019 Medications * Be aware that medications may not be up to date on this document. Alwaysverify current medications with the patient. 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
--- OUTSIDE RECORDS SUMMARY | 2025-01-30 07:35 | XMS_ITS | Data Portability ---
Author Organization [place] [facility], Main Office Address [address] [place] [address] Assessment Encounter Date Assessment Date Assessment LastModified [...] LILIA [facility], [address], [place], [address], 3 10:46:09 lipid panel, serum 2022 023 [email or web address] Aritacoeric, [address], [place], [address], 3 11:35:00 CMP, serum or plasma 2022 023 moe Bird, [address], [place], [address], 3 11:35:17 CBC w/ auto diff 2022 023 moe Bird, [address], [place], [address], 3 11:35:17 vitamin D, 25-hydroxy, total, serum 2022 023 moe Bird, [address], [place], [address], 11:35:16 vitamin B12, serum 2022 023 [email or web address] [facility], [address], [place], [address], 11:34:53 HbA1c (hemoglobin A1c), blood 2022 023 [email or web address] [facility], [address], [place], [address], 11:35:16 Referral None recorded. Procedures None recorded. Surgeries None recorded. Imaging XR, hip, unilateral 2022 023 ANA LILIA Not available 16:09:59 Medication Orders nystatin 100,000 unit/mL oral suspension 2022 023 ANA LILIA [id number], [address] [place], [address], 10:15:43 Patient TargetsNo targets recorded. Patient InstructionsNo instructions recorded. Reason for Referral None Reported. Results Created Date Observation Date Name Description Value Unit Range Abnormal Flag Note LastModifiedBy Organization Detail LastModifiedTime 03/30/2002/05/2023 CT, abdom en + pelvi s, w/ contr ast No observ ation record ed. [address], [place], [address], 03/31/2023 15:10:53 04/06/20 23 04/05/2023 colon oscop y scree ac (PROC ) No observ ation record ed. [email or web address] Not Available 2022 09:57:37 05/18/20 23 01/15/2023 CT, abdom en + pelvi s, w/ contr ast No observ ation record ed. [facility] Not Available 2022 16:07:04 06/16/20 23 06/16/2023 XR, hip, unila teral No observ ation record ed. [email or web address] [facility] [address], [place], [address], 06/18/2023 15:26:48 10/05/19 24 10/05/2023 MAMMO , diagn ostic , digit al, bilat eral No observ ation record ed. [email or web address] [address], [address], 10/06/2023 14:30:01 Result Notes None recorded. Problems Name Problem SNOMED Code Status Onset Date Resolution Date Notes Provider Name and Address Organization Details Recorded Time Suprapubic pain 000719085 Active Not Available [facility] 3 17:29:42 Spondyloli sthesis 376127583 Active Not Available [facility] 3 17:29:42 Left lower quadrant pain 950016202 Active Not Available [facility] 3 17:29:42 Right upper quadrant pain 365968804 Active Not Available [facility] 3 17:29:43 Hypoglycem ia 375383770 Active Not Available [facility] 3 17:29:43 Lower urinary tract symptoms 543244395 Active Not Available [facility] 3 17:29:43 Diverticul ar disease 681743564 Active Not Available [facility] 3 17:29:43 Adhesive capsulitis of shoulder 050793684 Active Not Available [facility] 3 17:29:43 Pharyngiti s 032459999 Active Not Available [facility] 3 17:29:43 Dysuria 95055671 Active Not Available [facility] 3 17:29:43 Fatigue 81845551 Active Not Available [facility] 3 17:29:43 Vitamin D deficiency 67700469 Active 2022 TYRA Sol [address] [place] [address], [place], [address] , [facility] 3 15:24:21 Diverticul ar disease of colon 908393532 Active 2022 TYRA Sol [address], [address], [place], [address] , [facility] 3 15:25:04 Chronic interstiti al cystitis 460752430 Active 2022 T[facility]RA Sol [address], [address], [place], [address] , [facility] 3 15:25:37 Acute urinary tract infection 646704203 Active 2022 TYRA Sol [address], [address], [place], [address] , [facility] 3 10:09:26 Urinary tract infectious disease 26950862 Active 2022 T[facility]RA Sol [address], [address], [place], [address] , [facility] 3 10:14:27 Allergic rhinitis 46065584 Active 2022 T[facility]RA Sol [address], [address], [place], [address] , [facility] 3 10:14:33 Pain of right hip joint 5199180840013 02 Active 2022 T[facility]RA Sol [address], [address], [place], [address] , [facility] 3 10:14:38 Coating of mucous membrane of tongue 851778572 Active 2022 T[facility] Sol [address], [address], [place], [address] , [facility] 3 10:15:21 Lump of axillary tail of right breast 7628839225853 06 Active 2022 T[facility] Sol [address], [address], [place], [address] , [facility] 3 09:45:11 Problem Notes None recorded. Procedures Surgical History Date Name Laterality Status Provider Name and Address Organization Details Recorded Time 09/13/19 10 cholecystectomy completed LEONIE Brown [place] [facility] 01/18/2023 14:07:31 09/13/19 08 section completed LEONIE Brown [place] 01/18/2023 14:09:03 09/13/19 00 Breast Surgery completed LEONIE Brown [place] [facility] 01/18/2023 14:08:43 Imaging Results Imaging Date Name Status LastModified by Organiz ation Details LastModified Time 02/05/2023 CT, abdomen + pelvis, w/ contrast completed [place] [address] [facility], [place], [address], 03/31/2023 15:10:53 04/05/2023 [facility] Information not available 06/16/2023 09:57:37 01/15/2023 CT, abdomen + pelvis, w/ contrast completed [facility] Information not available 05/18/2023 16:07:04 06/16/2023 XR, hip, unilateral completed [address], [place], [address], 06/18/2023 15:26:48 10/05/2023 MAMMO, diagnostic, digital, bilateral completed [address], [address], 10/06/2023 14:30:01 Procedure Notes None recorded. Medical Equipment None Reported. Allergies Allergen ID Allergen Name Allergen Category Reaction Reaction Severity Criticality Documentation Date Start Date Code Code System Note Provider Name and Address Organization Details Recorded Time 98775 codeine medicatio n rash Not available Not [...] azelastine 137 mcg (0.1 %) nasal spray Marion 2 sprays twice a day by intranasa [...] Address Organization Details Last Updated DateTime 3 22496.9 6 g 27.1 kg/m2 177.8 cm 89 /min 99 % 99 % 98.4 [degF] 124 mm[Hg] 86 mm[Hg] Joslyn Akins RN [place] [facility] [employer] [facility] 3 15:02:20 Date Recorded Body height Body mass index (BMI) Body weight Body temperature Heart rate Oxygen saturation Oxygen saturation in Arterial blood by Pulse oximetry Systolic blood pressure Diastolic blood pressure Provider Name and Address Organization Details Last Updated DateTime 3 177.8 cm 25.8 kg/m2 85700.6 3 g 97.5 [degF] 80 /min 99 % 99 % 110 mm[Hg] 78 mm[Hg] Joslyn Akins RN [facility] [employer] [facility] 09:51:43 Social History Question Answer Notes LastModified by BevSpotat ion Details LastModified Time Tobacco Smoking Status Never Smoker Joslyn Akins RN null, [facility] [employer] [facility] 01/18/2023 14:04:46 What Is Your Level Of Caffeine Consumption? None [email or web address] Information not available 01/18/2023 In The 14 Days Before Symptom Onset, Have You Had Close Contact With A Laboratory-confirm ed COVID-19 While That Case Was Ill? No [email or web address] Information n ot available 01/18/2023 In The 14 Days Before Symptom Onset, Have You Had Close Contact With A Person Who Is Under Investigation For COVID-19 While That Person Was Ill? No [email or web address] Information not available 01/18/2023 What Type Of Diet Are You Following? REGULAR [email or web address] Information n ot available 01/18/2023 What Is The Highest Grade Or Level Of School You Have Completed Or The Highest Degree You Have Received? TD29193-7 [email or web address] Information not available 01/18/2023 Have There Been Any Changes To Your Family Or Social Situation? No [email or web address] Information no t available 01/18/2023 Do You Use Insect Repellent Routinely? No [email or web address] Information not available 06/15/2023 What Is Your Relationship Status? [email or web address] Information not available 01/18/2023 Do You Use Your Seat Belt Or Car Seat Routinely? Yes [email or web address] Information not available 01/18/2023 Are You Passively Exposed To Smoke? No [email or web address] Information no t available 01/18/2023 Are There Any Smokers In Your House? No [email or web address] Information not available 01/18/2023 Do You Use Sunscreen Routinely? Yes [email or web address] Information not available 06/15/2023 Have You Recently Traveled Abroad? No [email or web address] Information not available 01/18/2023 Do You Have Any Dietary Restrictions? No [email or web address] Information not available 01/18/2023 Sex: Female Functional Status Question Answer Note LastModified by Organizat ion Details LastModified Time Do you use any illicit or recreational drugs? No [email or web address] Information not available 01/18/2023 Do you or have you ever used any other forms of tobacco or nicotine? No [email or web address] Information not available 01/18/2023 What is your level of alcohol consumption? None [email or web address] Information not available 01/18/2023 Are you currently employed? 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 None [email or web address] Information not available 01/18/2023 Mental Status Question Answer Note LastModified by Organization D etails LastModified Time Do you feel stressed (tense, restless, nervous, or anxious, or unable to sleep at night)? [id number] [email or web address] Information not available 01/18/2023 Family History Relationship Description Onset Age of this Age Resolved Age Notes LastModified by Organization Details LastModified Time Father Diabetes mellitus Not available 04/2023 14:03:23 Brother Malignant neoplasm of brain 58 [email or web address] Not available 04/2023 14:03:51 Medical History No medical history recorded. Gynecological HistoryNo gynecological history recorded. Obstetrics History GPAL:G 0 P 0 0 0 0 Past Encounters Encounter ID Performer Location Encounter Start Date Encounter Closed Date Diagnosis/Indication Diagnosis SNOMED-CT Code Diagnosis ICD10 Code Diagnosis Note [id number] [facility] [place] [address] [place] [address] 01/18/2023 14:41:01 01/18/2023 15:29:51 Adult health examination 862749738 Z00.00 well exam completed; all annual labs ordered. Cholesterol screening 27 3440038 Z13.220 Diabetes m ellitus screening 702881345 Z13.1 Vitamin D deficiency 347 24088 E55.9 Endocrine/ metabolic screening 729731607 Z13.228 Thyroid di sorder screening 715681896 Z13.29 Long-term drug therapy 716765948 Z79.899 Diverticul ar disease of colon 265454075 K57.30 post recent flare with abscess. seeing general surgeon in 2 weeks for f/u. Chronic in terstitial cystitis 270385359 N30.10 managed by urology [id number] T[facility] Sol [facility] [place] [address] [place] [address] 06/16/2023 09:42:50 06/16/2023 10:19:32 Urinary tract infectious disease 04623710 N39.0 continue augmentin abx therapy pt was already given end of May. Allergic rhinitis 675916 04 J30.9 take OTC antihistam ine. nasal steroid spray if able. Pain of ri ght hip joint 9470449512 79210 M25.551 check xray right hip. r/o OA Coating of mucous membrane of tongue 816657690 K14.3 trial of nystatin swish and swallow. Health Concerns Section Related Observation LastModified by Organization Detai ls LastModified Time None Recorded Concern Status LastModified by Organization Details LastModified Time None Recorded Advance Directives Directive None Recorded Payers Encounter Date Sequence Insurance Name Policy Number Policy Mohamud Covered Member ID Mohamud Member ID Guarantor Name 01/18/2023 1 [facility] OUT [facility] [place] - [place]UE CARD (PPO) [id number] Catrachito Olguin [id number] Alana Olguin 06/16/2023 1 [facility] [id number] Catrachito Olguin [id number] Alana Olguin Notes Date Note Type Note Provider Name and Address Organization Details Recorded Time 3 text/html Bowel Complaints/Fecal IncontinenceReported bypatient.Notes:previousl y saw GI, has not seen since 2020 last seen [facility] for c/o bowel problems (records requested)- diverticulitis was dx. here for wellness today - no current complaints for you [facility] Sol [address], [place], [address], [facility] 02/10/2023 15:34:16 3 text/html EaracheReported bypatient.Location:bilate ral [...] currently taking augmentin for uti [facility] [address] [place] [address], [place] [address], [place], [address], [facility] 07/13/2023 00:20:22 OBGyn Episode No OBEpisode recorded.
--- OUTSIDE RECORDS SUMMARY | 2025-01-30 07:35 | XMS_ITS | Encounter Summary ---
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
--- OUTSIDE RECORDS SUMMARY | 2025-01-30 07:36 | XMS_ITS | Continuity of Care Document ---
Author Organization [facility] Address [address] [place] [address] Phone Care Team Providers Care Media Reconciliation Specialist Name Role Phone Kurtz OD, Cosme Unavailable Unavailable Advance Directives Directive Yes / No Effective Date File Name No Information Encounters Encounter Description Practice Location Reason(s) For Visit Diagnoses Date Provider Providers Copied on Encounter [facility], [address], [place], [place], [id number], [place] tel:[phone] [facility] No Information [place]-2 7-200 6 Kurtz OD Cosme. [address] , [address], [place], [address], [place]. tel:[phone] Family History Family Member Type Diagnosis Age At Onset No Information Payers Payer name Insurance type Covered green party ID Authoriza tion(s) [facility] Commercial CI [id number] Social History Type Description Quantity Date Captured [...]
--- OUTSIDE RECORDS SUMMARY | 2025-01-30 07:36 | XMS_ITS | Encounter Summary ---
Author Organization [facility] Address [address] [place] [address] Phone Care Team Providers Care Retail Project Merchandiser Name Role Phone Loni Duong Primary Care Pr ovider Encounter Details Date Type Department Care Team (Late st Contact Info) Description 12/06/2017 Orders Only [facility] ProviderVic MD [address] [place] [address] Social History Tobacco Use Types Packs/Day Years Used Date Smoking Tobacco: Never Comments Unknown Sex and Gender Information Value Date Recorded Sex Assigned at Not on file 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
--- OUTSIDE RECORDS SUMMARY | 2025-01-30 07:36 | XMS_ITS | Encounter Summary ---
Author Organization [facility] Address [address] [facility] [place] [address] Care Team Providers Care Repairer Wood Furniture Name Role Phone Loni Marks Primary Care Pr ovider Reason for Visit * Reason Onset Date Comments Future Appointment 12/12/2018 Encounter Details Date Type Department Care Team (Late st Contact Info) Description 12/12/2018 Telephone [facility] [address] [place] [address] Kyle Chanel Jr., MD [address] [place] [address] Future Appointment Social History Tobacco Use Types Packs/Day Years Used Date Smoking Tobacco: Never Assessed Comments Unknown Sex and Gender Information Value Date Recorded Sex Assigned at Not on file 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 Gender Identity Not on file Sexual Orientation Not on file documented as of this encounter Miscellaneous Notes * Telephone Encounter - Yue Vallejo - 12/12/2018 2:21 PM CDT PT would like for someone to give her a call about appointment tomorrow regarding if she needs results for her ct scan CB: [phone] documented in this encounter Plan of Treatment Not on file documented as of this encounter Visit Diagnoses Not on filedocumented in this encounter Care Teams Repairer Wood Furniture Relationship Specialty Start Date End Date Loni Marks PA [address] [place] [address] PCP - General 11/29/18 documented as of this encounter
--- NOTE | 2025-01-30 07:50 | ED.CHESTPAIN ---
HPI - Chest Pain General Chief Complaint: Chest Pain Stated Complaint: chest pain, abdominal pain Time Seen by Provider: 01/30/25 07:44 Source: patient Mode of arrival: ambulatory Limitations: no limitations History of Present Illness HPI narrative: Patient presents with report central chest pain. She states it feels like gas or indigestion heartburn . Earlier she was having epigastric abdominal pain. Last oral intake was 5:00 p.m., she had a gyro. She is scheduled for upcoming hip surgery with Dr Garay and notes that as part of her pre-surgical clearance process her EKG had noted some left atrial enlargement and there was a recommendation for a stress test however they were going to repeat the EKG 1st which was actually supposed to be scheduled to be done this morning. The symptoms have never happened before and are unusual for her. She had been experiencing the abdominal pain and headache and had attributed this to Celebrex which she started just prior to the symptoms beginning. She stops taking this medication yesterday after discussing with the ortho CADY. Other than that she is not on NSAIDs. Her last bowel movement was this morning and no diarrhea, constipation or blood. No edema. Previous abdominal surgery includes a cholecystectomy. No cardiac history and does not follow with a point of care technician. She denies any shortness of breath. She felt nauseated but no vomiting. She occasionally has a morning cough but attributes this to sinuses. No fevers or chills. Does not regularly drink alcohol, only scant quantity with communion. No edema Cardiac risk factors HTN: 0 HLD:0 DM:0 Obese:0 Smoker:0 Personal history MN/TIA/CVA: 0 Fam Hx MN in first degree relative <65yo:0 Related Data Home Medications ?Medication ?Instructions ?Recorded ?Confirmed ?Last Taken ?Type cholecalciferol (vitamin D3) 50 50 mcg PO DAILY 03/25/23 01/16/25 03/25/23 History mcg (2,000 unit) capsule (Vitamin D3) multivit with minerals-iron 18 1 tablet PO DAILY 03/25/23 01/16/25 03/25/23 History mg-folic ac 400 mcg-vit K 25 mcg tablet (Adults Multivitamin) omega 3-rge-hqy-fish oil 120 1 cap PO DAILY 03/25/23 01/16/25 03/25/23 History mg-180 mg-500 mg capsule (Fish Oil) Saccharomyces boulardii 250 mg 250 mg PO BID 09/09/23 01/16/25 Unknown History capsule (Daily Probiotic (S. boulardii)) bile ocqrc-pxqq-trqq-phenolpth 1 tablet PO DAILY 09/09/23 01/16/25 Unknown History tablet Tribulis 1 g BYMOUTH DAILY 11/22/24 01/16/25 Unknown History magnesium-potassium 40 mg-40 mg 1 cap PO DAILY 11/22/24 01/16/25 Unknown History capsule celecoxib 100 mg capsule 100 mg PO Q24H 01/16/25 01/16/25 Unknown History Allergies Allergy/AdvReac Type Severity Reaction Status Date / Time codeine Allergy Intermediate ITCHING/IRENE Verified 01/30/25 07:44 H PMFSH Past Medical History Medical History Cavovarus deformity of foot, acquired Arthritis of foot, degenerative Endometriosis Interstitial cystitis (chronic) without hematuria Diverticulitis Surgical History Surgical History H/O knee surgery S/P breast lumpectomy H/O laparoscopy Delivery by section History of cholecystectomy Laparoscopic cholecystectomy 2010 at [facility] Breast cancer Status post lumpectomy and axillary dissection with postoperative radiation therapy and chemotherapy. Family History Family History Father Hypertension Mother Diabetes mellitus Disorder of thyroid Sibling No problems noted. Social History Social History (Updated 01/30/25 @ 08:09 by Amee Hartman MD) Smoking status: Never smoker Alcohol intake: never Alcohol use details: only scant, Communion Substance use: never Substance use type: does not use Current Housing: Decline to Answer Concerned About Future Housing: Decline to Answer Difficulty Paying Gas/Electric Bills: Decline to Answer Difficulty Paying for Meds: Decline to Answer Currently Unemployed: Decline to Answer Education: Don't Know Difficulty w/ Childcare or Family Care: Decline to Answer Living arrangements: with family Additional living arrangements comments: and daughter Occupation/Education: unemployed Gender identity (if verbalized by the patient): Female Spiritual care concerns: No Exam Narrative: GENERAL: Well-appearing, well-nourished, and in no acute distress. HEAD: Normocephalic, atraumatic. EYES: Non injected, non icteric ENT: Nares clear, no rhinorrhea or epistaxis. NECK: Supple. CHEST: Speaking in full sentences. No respiratory distress. Lungs clear to auscultation bilaterally without appreciable wheezes or crackles HEART: Regular rate and rhythm. . ABDOMEN: Soft, nondistended. EXTREMITIES: Normal range of motion. No bilateral lower extremity edema. SKIN: Warm, dry, no rash. NEURO: No focal deficits. Alert and oriented x3. PSYCH: Normal mood and affect. Course Vital Signs Vital signs: Vital Signs Temperature 97.6 F 01/30/25 07:36 Pulse Rate 75 01/30/25 07:36 Respiratory Rate 16 01/30/25 07:36 Blood Pressure 165/103 H 01/30/25 07:36 Pulse Oximetry 99 01/30/25 07:36 Oxygen Delivery Room Air 01/30/25 07:36 Temperature 97.6 F 01/30/25 07:36 Pulse Rate 58 L 01/30/25 12:20 Respiratory Rate 21 H 01/30/25 12:20 Blood Pressure 159/89 H 01/30/25 12:01 Pulse Oximetry 96 01/30/25 12:20 Oxygen Delivery Room Air 01/30/25 07:50 MDM - Chest Pain MDM Narrative Medical decision making narrative: Patient presents chest pain. In the emergency department she is afebrile vital signs notable for hypertension. Isolated AST elevation. HEART SCORE History 2 highly suspicious 1 moderately suspicious 0 slightly suspicious History score [address] depression/elevation not due to LBBB, LVH, or digoxin [address] depression but LBBB, LVH, nonspecific repolarization changes 0 normal ECG score 0 Age 2 >/= 65 1 45-64 0 <45 Age score 1 Risk factors (HTN, hypercholesterolemia, DM, obesity with BMI >30, current smoker or cessation </=3mo), positive fam hx with parent or sibling with CVD before age 65, atherosclerotic disease (prior MN, PCI/CABG, CVA/TIA, or peripheral arterial disease) 2 >/= 3 risk factors or history of atherosclerotic dz 1 - 1-2 risk factors 0 no known risk factors Risk factor score 0 Initial Troponin 2 >3 times normal limit 1 1-3 times normal limit 0 less than or equal to normal limit Troponin score 0 Total HEART Score 1 Dimer normal; will not proceed with CTA. However, after patient is reassessed at approximately 9:20 a.m., she states she has continued to have pain but now particularly in the lower abdomen which was where she was having pain earlier. Discussed the chest pain protocol that patient will be awaiting a 3 hour troponin. She acknowledges this and, in the interim, will give additional pain medicine and proceed with CT imaging of chest abdomen and pelvis. Repeat troponin WNL Patient reassessed approximately 12:05 p.m.. She reports feeling much better. We discussed that her cardiac and abdominal pain workup has essentially been unremarkable. Patient is very concerned about the designation of left atrial enlargement that had previously been seen on EKG and the fact that it continues to be noted on EKGs today. I advised that she follow-up with her anesthesiologist and orthopedic surgeon on whether she would need to perform any other pre-surgical testing. In regards to today's presentation, we discussed her low but not negligible risk and that this means that her risk of adverse cardiac event next 30 days is low but that the recommendation would be to proceed with outpatient follow-up, just that it does not need to her on an emergent basis by being admitted to the hospital. Patient given referral to point of care technician. Discharged with return precautions as well as prescription for simethicone. Differential Diagnosis Differential diagnosis: Likely stable angina, unstable angina pectoris, atypical chest pain, st elevation myocardial infarction, chest pain, biliary colic (considered but s/p vikas) and other (Dyspepsia, gastritis, medication side effect; pancreatitis, pneumonia, acute viral syndrome) Lab Data Attestation: I reviewed the patient's lab results. Lab results narrative: Normal renal function.CBC unremarkable except for mild alterations in differential. Viral panel neg 01/30/25 07:45 01/30/25 08:13 Labs: Lab Results 01/30/25 01/30/25 01/30/25 Range/Units 07:45 07:45 08:13 WBC 4.9 (4.5-10.0) K/mm3 RBC 4.59 (4.2-5.4) M/mm3 Hgb 13.6 (12.0-15.0) g/dL Hct 41.4 (37.0-47.0) % MCV 90.2 (80-100) fl MCH 29.6 (26-34) pg MCHC 32.9 (32-36) g/dl RDW 12.9 (11.5-14.5) % Plt Count 313 (150-375) k/mm3 MPV 8.8 (7.4-10.4) fl Immature Gran % (Auto) 0.6 H (0-0.5) % Neut % (Auto) 54.9 (45.5-73.1) % Lymph % (Auto) 31.4 (18.3-44.2) % [place] % (Auto) 9.0 H (2.6-8.5) % Eos % (Auto) 3.5 (0-4.4) % Baso % (Auto) 0.6 (0.2-1.2) % Lymph # (Auto) 1.54 (0.9-3.2) K/mm3 [place] # (Auto) 0.4 (0.1-0.6) K/mm3 Eos # (Auto) 0.2 (0-0.3) K/mm3 Baso # (Auto) 0.0 (0.0-0.1) K/mm3 Abs Immat Gran (auto) 0.03 (0.00-0.031) K/mm3 Absolute Neuts (auto) 2.7 (1.3-6.7) K/mm3 Absolute Nucleated RBC 0.000 (0.0-0.012) K/mm3 Nucleated RBC % 0.0 (0.0-0.2) % PT 12.9 (11.1-14.7) Seconds INR 0.9 APTT 24.4 (22.3-36.8) Seconds D-Dimer < 0.22 Cancelled (<0.48) ug/mL Sodium 139 (137-145) mmol/L Potassium 4.4 (3.4-5.0) mmol/L Chloride 105 (98-107) mmol/L Carbon Dioxide 25 (22-30) mmol/L Anion Gap 9 (4-12) mmol/L BUN 15 (7-17) mg/dL Creatinine 0.60 L (0.7-1.0) mg/dL Estim Creat Clear Calc 103 ml/min Estimated GFR > 60 (59 - ) Glucose 100 (65-110) mg/dL Calcium 9.4 (8.4-10.2) mg/dL Total Bilirubin 0.7 (0.2-1.3) mg/dL AST 43 H (14-36) U/L ALT 30 (6-35) U/L Alkaline Phosphatase 85 (38-126) U/L Troponin I < 0.012 (0.000-0.034) ng/mL Total Protein 8.0 (6.3-8.2) g/dL Albumin 4.7 (3.5-5.1) g/dL Lipase 118 (23-300) U/L Urine Color (Yellow) Urine Appearance (Clear) Urine pH (5.0-9.0) Ur Specific [place] (1.001-1.035) Urine Protein (Negative) mg/dL Urine Glucose (UA) (Negative) mg/dL Urine Ketones (Negative) mg/dL Ur Blood (Man) (Negative) Urine Nitrate (Negative) Urine Bilirubin (Negative) Urine Urobilinogen (<2.0) mg/dL Leukocyte Esterase Rfl (Negative) RAYA/UL Urine RBC (0-2) /hpf Urine WBC (0-3) /hpf Ur Squamous Epith Cells (Few) /hpf Urine Bacteria /hpf Urine Casts Influenza A (RT-PCR) Negative (Negative) Influenza B (RT-PCR) Negative (Negative) SARS-CoV-2 RNA (RT-PCR) Negative (Negative) 01/30/25 01/30/25 Range/Units 10:39 11:20 WBC (4.5-10.0) K/mm3 RBC (4.2-5.4) M/mm3 Hgb (12.0-15.0) g/dL Hct (37.0-47.0) % MCV (80-100) fl MCH (26-34) pg MCHC (32-36) g/dl RDW (11.5-14.5) % Plt Count (150-375) k/mm3 MPV (7.4-10.4) fl Immature Gran % (Auto) (0-0.5) % Neut % (Auto) (45.5-73.1) % Lymph % (Auto) (18.3-44.2) % [place] % (Auto) (2.6-8.5) % Eos % (Auto) (0-4.4) % Baso % (Auto) (0.2-1.2) % Lymph # (Auto) (0.9-3.2) K/mm3 [place] # (Auto) (0.1-0.6) K/mm3 Eos # (Auto) (0-0.3) K/mm3 Baso # (Auto) (0.0-0.1) K/mm3 Abs Immat Gran (auto) (0.00-0.031) K/mm3 Absolute Neuts (auto) (1.3-6.7) K/mm3 Absolute Nucleated RBC (0.0-0.012) K/mm3 Nucleated RBC % (0.0-0.2) % PT (11.1-14.7) Seconds INR APTT (22.3-36.8) Seconds D-Dimer (<0.48) ug/mL Sodium (137-145) mmol/L Potassium (3.4-5.0) mmol/L Chloride (98-107) mmol/L Carbon Dioxide (22-30) mmol/L Anion Gap (4-12) mmol/L BUN (7-17) mg/dL Creatinine (0.7-1.0) mg/dL Estim Creat Clear Calc ml/min Estimated GFR (59 - ) Glucose (65-110) mg/dL Calcium (8.4-10.2) mg/dL Total Bilirubin (0.2-1.3) mg/dL AST (14-36) U/L ALT (6-35) U/L Alkaline Phosphatase (38-126) U/L Troponin I < 0.012 (0.000-0.034) ng/mL Total Protein (6.3-8.2) g/dL Albumin (3.5-5.1) g/dL Lipase (23-300) U/L Urine Color Yellow (Yellow) Urine Appearance Clear (Clear) Urine pH 7.0 (5.0-9.0) Ur Specific [place] > 1.045 H (1.001-1.035) Urine Protein Negative (Negative) mg/dL Urine Glucose (UA) Negative (Negative) mg/dL Urine Ketones Negative (Negative) mg/dL Ur Blood (Man) Negative (Negative) Urine Nitrate Negative (Negative) Urine Bilirubin Negative (Negative) Urine Urobilinogen 0.2 (<2.0) mg/dL Leukocyte Esterase Rfl 1+ H (Negative) RAYA/UL Urine RBC 0-2 (0-2) /hpf Urine WBC 11-20 H (0-3) /hpf Ur Squamous Epith Cells None seen (Few) /hpf Urine Bacteria None seen /hpf Urine Casts 0-2 Influenza A (RT-PCR) (Negative) Influenza B (RT-PCR) (Negative) SARS-CoV-2 RNA (RT-PCR) (Negative) Imaging Data Attestation: I personally reviewed and interpreted this imaging study as follows: My impression: No acute intrathoracic process on my independent interpretation of chest x-ray Radiologist's impression: Impressions Chest X-Ray 01/30/25 08:40 IMPRESSION: No focal infiltrate or effusion. Chest/Abdomen/Pelvis CT 01/30/25 10:15 IMPRESSION: 1. No acute cardiopulmonary disease or acute intra-abdominal/pelvic process. 2. Nonspecific mediastinal lymphadenopathy which could be reactive, metastatic disease or lymphoma. 3. Dilation the common hepatic duct to 1.3 cm likely related to prior cholecystectomy. Correlate with liver function tests and if there is concern for biliary obstruction could consider MRCP for further evaluation. 4. Mild left renal atrophy with small nonobstructing renal stones versus dystrophic parenchymal calcifications at the site of focal cortical scarring which may represent sequela prior infection or infarction. ECG Data EKG #1: Attestation: I personally reviewed and interpreted this ECG as follows: ECG completion date: 01/30/25 ECG completion time: 07:38 Interpretation: Normal sinus rhythm at a rate of 63 beats per minute. MI interval 185. QRS all 5. QT/QTC 375/383. Left atrial enlargement suggested as possible however P-waves are not bifid in lead 2 and although P-waves are negative in V1 they are not biphasic with terminal negative portion. No T-wave inversions. EKG #2: Attestation: I personally reviewed and interpreted this ECG as follows: ECG completion date: 01/30/25 ECG completion time: 10:40 Interpretation: Sinus bradycardia rate of 55 beats per minute. MI interval 168. QRS 91. QT/QTC 420/408. T-wave inversion isolated to lead 3 but otherwise upright in contiguous inferior leads and across precordial leads. Discharge Plan Discharge Clinical Impression: Chest pain, Elevated AST (SGOT), Mediastinal adenopathy, Abdominal discomfort Patient Disposition: Home Condition: Stable Instructions: Antibiotic Form, Chest Pain (DC), Abdominal Pain (ED) Additional Instructions: As we discussed, your symptoms may be a medication side effect. Your workup which included 2 EKGs, 2 cardiac enzymes, chest x-ray, and a CT scan of your chest abdomen pelvis, did not identify a clear etiology. If you continue to experience some bloating, you can use the prescribed medication. Follow-up with primary care provider. In regards to your chest pain, you are low however not negligible risk and therefore the recommendation is to have outpatient follow-up. The name of a point of care technician is listed below. Return to the Emergency Department immediately if the pain worsens, develops fever, persistent and uncontrolled vomiting, or for any new symptoms or concerns. Patient Language: Congolese Prescriptions: New simethicone 125 mg capsule 125 mg PO DAILY PRN (Reason: abdominal distention) Qty: 14 0RF No Action magnesium-potassium 40-40 mg capsule 1 cap PO DAILY Tribulis capsule 1 g BYMOUTH DAILY Saccharomyces boulardii [Daily Probiotic (S. boulardii)] 250 mg capsule 250 mg PO BID bile ejmnd-zphu-ivba-phenolpth Tablet 1 tablet PO DAILY celecoxib 100 mg capsule 100 mg PO Q24H mupirocin 2 % ointment 1 applic topical BID Qty: 22 0RF cholecalciferol (vitamin D3) [Vitamin D3] 50 mcg (2,000 unit) Capsule 50 mcg PO DAILY Fish Oil 120-180-500 mg Capsule 1 cap PO DAILY Adults Multivitamin 18 mg iron-400 mcg-25 mcg Tablet 1 tablet PO DAILY Follow-up/Referrals: Telly Winters DO [Physician] - Rhoda,SYLVIA Ivey [Primary Care Provider] - Stand Alone Forms: Work/School Release IP Time of Disposition: 12:22
[2025-01-30 07:51] LABS: Basophils Percent Auto 0.6 % (0.2-1.2); Eosinophils Absolute Auto 0.2 K/mm3 (0-0.3); Eosinophils Percent Auto 3.5 % (0-4.4); Hematocrit 41.4 % (37.0-47.0); Hemoglobin 13.6 g/dL (12.0-15.0); Immature Granulocyte Absolute 0.03 K/mm3 (0.00-0.031); Immature Granulocyte Percent A 0.6 % (0-0.5); Lymphocytes Absolute Auto 1.54 K/mm3 (0.9-3.2); Lymphocytes Percent Auto 31.4 % (18.3-44.2); Mean Corpuscular HGB Conc 32.9 g/dl (32-36); Mean Corpuscular Hemoglobin 29.6 pg (26-34); Mean Corpuscular Volume 90.2 fl (80-100); Mean Platelet Volume 8.8 fl (7.4-10.4); Monocytes Absolute Auto 0.4 K/mm3 (0.1-0.6); Neutrophils Absolute Auto 2.7 K/mm3 (1.3-6.7); Neutrophils Percent Auto 54.9 % (45.5-73.1); Platelet Count Result 313 k/mm3 (150-375); Red Blood Count 4.59 M/mm3 (4.2-5.4); Red Cell Distribution Width 12.9 % (11.5-14.5); White Blood Count 4.9 K/mm3 (4.5-10.0)
[2025-01-30] MEDS: ASPIRIN 81 MG CHEWABLE TABLET 324 MG PO (07:51)
--- OUTSIDE RECORDS SUMMARY | 2025-01-30 08:05 | XMS_ITS | Clinical Summary ---
Author Organization [facility] Address [address] [place] [address] Care Team Providers Care Death Claim Examiner Name Role Phone Loni Duong Primary Care Pr ovider Allergies Active Allergy Reactions Criticality Noted Date Comments Codeine Itching Low Medications fc-izhekik-qkf- iron fm-FA-vitK 18 mg iron-600 mcg-80 mcg [...] (05/23/2020): Added automatically from request for surgery [id number] Encounter for follow-up surveillance of breast c ancer 04/23/2020 History of bilateral breast cancer 04/23/2020 Generalized abdominal pain 10/12/2019 Diverticulitis of large inte brian without perforation or abscess without bleeding 10/12/2019 Gastric nodule 10/12/2019 Epigastric pain 07/23/2019 Irritable bowel syndrome 11/01/2018 Surgical History Surgery Date Site/Laterality Comments CA DELIVERY ONLY CA CHOLECYSTECTOMY CA DILATION & CURETTAGE DX&/THER NONOBSTETRIC MASTECTOMY, PARTIAL [...] on file Legal Sex Female 8:16 PM [facility] Gender Identity Not on file Sexual Orientation [...] Read Routine (OP Routine) 10/05/2023 9:39 AM [facility] Unspecified lump in axillary tail of the right breast COLONOSCOPY 06/13/2020 9:01 AM CDT from Last 3 Months or Most Recently Relevant to Health Maintenance Results * Diagnostic Mammogram Bilateral W Chetan (10/05/2023 9:39 AM [facility]) Anatomical Region Laterality Modality Breast Bilateral Mammography 10/05/2023 10:1 3 AM [facility] Impressions 10/05/2023 10:37 AM [facility] 1. Stable postsurgical changes of bilateral breast [...] Chantel Leo M.D. Narrative 10/05/2023 10:37 AM [facility] EXAMINATION: BILATERAL DIGITAL DIAGNOSTIC MAMMOGRAM INCLUDING CAD [...] Female Attending MD: Kal Ha M.D. Room: [facility] ENDOSCOPY ROOM 04 Note Status: Finalized [...] Thescope was passed under direct vision. The [id number] introduced through the anus and advanced to the cecum, identified by appendiceal orifice and ileocecal valve.The colonoscopy was performed without difficulty. Thepatient tolerated the procedure well. The quality of the bowel preparation was evaluated using the BBPS ([place] Bowel Preparation Scale) with scores of: Right [...] JR Date of :1965 Payer ID:[id number] (NAIC) Type:[employer] Address: [address] ACCESS OOS Member Subscriber Plan / Payer ( fective 2021-Present) Name:Alana Pal Relation to Subscriber:Self Name:Alana Pal Payer ID:[id number] (NAIC) Group ID:Not on file Type:[employer] Address: [address] [employer] [place] [id number] [employer] Advance Directives For more information, please contact: [phone] * Full Code (Latest Code Status on File) Date Activated Date Inactivated Comments 06/13/2020 8:02 AM 06/13/2020 1:57 PM * Full Code Date Activated Date Inactivated Comments 09/01/2019 8:33 AM 09/01/2019 3:28 PM Care Teams Death Claim Examiner Relationship Specialty Start Date End Date Loni Duong PA PCP - General 11/19/16
--- OUTSIDE RECORDS SUMMARY | 2025-01-30 08:05 | XMS_ITS | Referral Summary ---
Author Organization [facility] Address [address] [place] [address] Care Team Providers Care Administrative Judge Name Role Phone Loni Duong Primary Care Pr ovider Allergies Active Allergy Reactions Criticality Noted Date Comments Codeine Itching Low Medications tc-whgxmib-xbk- iron fm-FA-vitK 18 mg iron-600 mcg-80 mcg [...] (05/23/2020): Added automatically from request for surgery [id number] Encounter for follow-up surveillance of breast c [...] on file Legal Sex Female 8:16 PM [facility] Gender Identity Not on file Sexual Orientation [...] Read Routine (OP Routine) 10/05/2023 9:39 AM [facility] Unspecified lump in axillary tail of the right breast COLONOSCOPY 06/13/2020 9:01 AM CDT from Last 3 Months or Most Recently Relevant to Health Maintenance Results * Diagnostic Mammogram Bilateral W Chetan (10/05/2023 9:39 AM [facility]) Anatomical Region Laterality Modality Breast Bilateral Mammography 10/05/2023 10:1 3 AM [facility] Impressions 10/05/2023 10:37 AM [facility] 1. Stable postsurgical changes of bilateral breast [...] agrees with it. Electronically signed by: Chantel Loe M.D. Narrative 10/05/2023 10:37 AM [facility] EXAMINATION: BILATERAL DIGITAL DIAGNOSTIC MAMMOGRAM INCLUDING CAD [...] Female Attending MD: Kal Ha M.D. Room: [facility] ENDOSCOPY ROOM 04 Note Status: Finalized Procedure: [...] Thescope was passed under direct vision. The [id number] introduced through the anus and advanced to the cecum, identified by appendiceal orifice and ileocecal valve.The colonoscopy was performed without difficulty. Thepatient tolerated the procedure well. The quality of the bowel preparation was evaluated using the BBPS ([place] Bowel Preparation Scale) with scores of: Right [...] Payer ID:[id number] (NAIC) Group ID:Not on file Type:iFollo Address: [address] [employer] [place] [address] Advance Directives For more information, please contact: [phone] * Full Code (Latest Code Status on File) Date Activated Date Inactivated Comments 06/13/2020 8:02 AM 06/13/2020 1:57 PM * Full Code Date Activated Date Inactivated Comments 09/01/2019 8:33 AM 09/01/2019 3:28 PM Care Teams Administrative Judge Relationship Specialty Start Date End Date Loni Duong PA PCP - General 11/19/16
--- OUTSIDE RECORDS SUMMARY | 2025-01-30 08:06 | XMS_ITS | Encounter Summary ---
Author Organization [facility] Address [address] [place] [address] Care Team Providers Care Lathe Scalper Operator Name Role Phone Loni Marks Primary Care Pr ovider Reason for Visit * Reason Onset Date Comments Future Appointment 12/12/2018 Encounter Details Date Type Department Care Team (Late st Contact Info) Description 12/12/2018 Telephone [facility] [place] [facility] [address] [place] [address] Kyle Chanel Jr., MD [address] [place] [address] Future Appointment Social History Tobacco Use Types Packs/Day Years Used Date Smoking Tobacco: Never Assessed Comments Unknown Sex and Gender Information Value Date Recorded Sex Assigned at Not on file Legal Sex Female 6:32 AM 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 PHARMACY Gender Identity Not on file Sexual Orientation Not on file documented as of this encounter Miscellaneous Notes * Telephone Encounter - Yue Vallejo - 12/12/2018 2:21 PM CDT PT would like for someone to give her a call about appointment tomorrow regarding if she needs results for her ct scan CB: [phone] documented in this encounter Plan of Treatment Not on file documented as of this encounter Visit Diagnoses Not on filedocumented in this encounter Care Teams Lathe Scalper Operator Relationship Specialty Start Date End Date Loni Marks PA [address] [place] [address] PCP - General 11/29/18 documented as of this encounter
--- OUTSIDE RECORDS SUMMARY | 2025-01-30 08:06 | XMS_ITS | Encounter Summary ---
Author Organization [facility] Address [address] [place] [address] Phone Care Team Providers Care Book Sewer Name Role Phone Loni Duong Primary Care Pr ovider Encounter Details Date Type Department Care Team (Late st Contact Info) Description 12/06/2017 Orders Only [facility] ProviderVic MD [address] [place] [id number] Social History Tobacco Use Types Packs/Day Years Used Date Smoking Tobacco: Never Comments Unknown Sex and Gender Information Value Date Recorded Sex Assigned at Not on file Legal Sex Female 8:16 PM CLIENT STRATEGIST Gender Identity Not on file Sexual Orientation [...] on filedocumented in this encounter Care Teams Book Sewer Relationship Specialty Start Date End Date Loni Duong PA PCP - General 11/19/16 documented as of this encounter
--- OUTSIDE RECORDS SUMMARY | 2025-01-30 08:06 | XMS_ITS | Clinical Summary ---
Author Organization [facility] Address [address] [place] [address] Care Team Providers Care Process Line Operator Name Role Phone Loni Marks Primary Care Pr ovider Source Comments [facility],non-owned Affiliates and Associated Physician Practices is amultiple site organization consisting of ambulatory clinics and hospital sitesin [place], [place], [place] and [place]. This disclosure is being madepursuant to the Care Everywhere program and may not contain all information available regarding this patient. 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
--- OUTSIDE RECORDS SUMMARY | 2025-01-30 08:06 | XMS_ITS | Encounter Summary ---
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
--- OUTSIDE RECORDS SUMMARY | 2025-01-30 08:06 | XMS_ITS | Clinical Summary ---
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
--- OUTSIDE RECORDS SUMMARY | 2025-01-30 08:06 | XMS_ITS | Continuity of Care Document ---
Author Organization [facility] Address [address] [place] [address] Phone Care Team Providers Care Cable Inspector Name Role Phone Kurtz OD, Cosme Unavailable Unavailable Advance Directives Directive Yes / No Effective Date File Name No Information Encounters Encounter Description Practice Location Reason(s) For Visit Diagnoses Date Provider Providers Copied on Encounter [facility], [address], [place], [place], [id number], [place] tel:[phone] [facility] No Information Cay[place]-2 7-200 6 Kurtz OD Cosme. [address], [place], [address], [place]. tel:[phone] Family History Family Member Type Diagnosis Age At Onset No Information Payers Payer name Insurance type Covered alliance party ID Authoriza tion(s) [facility] Commercial CI [id number] Social History Type Description Quantity Date Captured [...]
[2025-01-30] MEDS: BELLADONNA ALK/PHENOB ELIX 10 ML, MAG HYDROX/ALUMINUM HYD/SIMETH 30 ML, LIDOCAINE 2% VI... PO (08:10)
[2025-01-30] MEDS: ONDANSETRON INJ 4 MG/2 ML VIAL IV PUSH (08:16)
[2025-01-30 08:29] LABS: Alanine Aminotransferase 30 U/L (6-35); Albumin Level 4.7 g/dL (3.5-5.1); Alkaline Phosphatase 85 U/L (38-126); Anion Gap 9 mmol/L (4-12); Aspartate Amino Transferase 43 U/L (14-36); Bilirubin,Total 0.7 mg/dL (0.2-1.3); Blood Urea Nitrogen 15 mg/dL (7-17); Calcium 9.4 mg/dL (8.4-10.2); Carbon Dioxide 25 mmol/L (22-30); Chloride 105 mmol/L (98-107); Estimated CRCL calculation 103 ml/min; Estimated Glomerular Filt Rate > 60; Glucose 100 mg/dL (65-110); Lipase 118 U/L (23-300); Potassium 4.4 mmol/L (3.4-5.0); Sodium 139 mmol/L (137-145)
[2025-01-30 08:33] LABS: INR 0.9; Partial Thromboplastin Time 24.4 Seconds (22.3-36.8); Prothrombin Time 12.9 Seconds (11.1-14.7)
[2025-01-30 08:36] LABS: D Dimer < 0.22 ug/mL (<0.48)
[2025-01-30 08:40] LABS: Troponin I < 0.012 ng/mL (0.000-0.034)
[2025-01-30 08:56] LABS: Influenza A QL RT-PCR Negative (Negative); Influenza B QL RT-PCR Negative (Negative); SARS-CoV-2 RNA PCR Negative (Negative)
[2025-01-30] MEDS: ACETAMINOPHEN 500 MG TABLET 1000 MG PO (10:03)
--- NOTE | 2025-01-30 10:30 | ECG_ITS ---
Test Date: 2025-01-30 10:40:06 Measurements Intervals [place] Rate: 55 P: 24 PA: 168 QRS: 8 QRSD: 91 T: 30 QT: 420 QTc: 403 Interpretive Statements SINUS BRADYCARDIA POSSIBLE LEFT ATRIAL ENLARGEMENT [-0.1mV P-WAVE IN V1/V2] LOW QRS VOLTAGE IN PRECORDIAL LEADS [QRS DEFLECTION < 1.0 mV IN CHEST LEADS] Compared to ECG 01/30/2025 07:38:16 Sinus rhythm no longer present Electronically Signed On 01-30-2025 13:42:23 CDT by Aftab Bolivar M.D.
[2025-01-30 11:05] LABS: Troponin I < 0.012 ng/mL (0.000-0.034)
[2025-01-30] MEDS: DICYCLOMINE HCL 10 MG CAPSULE PO (11:23)
[2025-01-30 11:54] LABS: Add Urine Microscopic? YES; Appearance Urine Clear (Clear); Bacteria Urine None Seen /hpf; Bilirubin Urine Negative (Negative); Blood Urine Negative (Negative); Color Urine Yellow (Yellow); Glucose Urine UA Negative (Negative); Ketones Urine Negative (Negative); Leukocyte Esterase Ur 1+ LEU/UL (Negative); Nitrate Urine Negative (Negative); Non Pathogenic Casts 0-2; Protein Urine Negative (Negative); RBC Urine 0-2 /hpf (0-2); Specific Grav Ur > 1.045 (1.001-1.035); Squamous Epithelial Cell Urine None Seen /hpf (Few); Urobilinogen Urine 0.2 mg/dL (<2.0)
== END 2025-01-30 12:27 | disposition home or self-care (01) ==
PROVIDERS: Emergency Provider Student in an Organized Health Care Education/Training Program; PCP Physician Assistant
DX: R07.9 Chest pain, unspecified (principal); R74.01 Elevation of levels of liver transaminase levels; R59.0 Localized enlarged lymph nodes; R10.30 Lower abdominal pain, unspecified; Z20.822 Contact with and (suspected) exposure to COVID-19; N80.9 Endometriosis, unspecified; N30.10 Interstitial cystitis (chronic) without hematuria; M19.079 Primary osteoarthritis, unspecified ankle and foot; Z85.3 Personal history of malignant neoplasm of breast; Z92.3 Personal history of irradiation; Z92.21 Personal history of antineoplastic chemotherapy; R94.31 Abnormal electrocardiogram [ECG] [EKG]; R00.1 Bradycardia, unspecified; N26.1 Atrophy of kidney (terminal)
CPT/HCPCS: 36415; 71046; 71260; 74177; 80053; 81001; 83690; 84484; 85025; 85380; 85610; 85730; 87086; 87636; 93005; 96374; 99284; A9270; J2405; Q9967

== ENCOUNTER 2025-02-06 09:46 | Outpatient (CLI) | payer OTHER, SELFPAY ==
--- NOTE | 2025-02-06 | EST_ITS ---
Patient Info Name: Alana Olguin Age: 59 years : 1965 Gender: Female Ht: 70 in Wt: 190 lbs BSA: 2.08 m2 HR: 76 bpm BP: 150 / 91 mmHg Exam Date: 02/06/2025 10:51 AM Patient Status: O Admit Date: 02/06/2025 Exam Type: CA stress jazmyne w NM A regadenoson stress test was performed. Staff Referring Physician: Loni Duong Attending Provider: Loni Duong Exercise Technologist: Noemí Pacheco Exercise Physician: Telly Winters DO Summary 1. 1. Negative lexiscan stress test for ischemic ST changes by ECG criteria. 2. 2. Baseline hypertension. 3. 3. Nuclear scan to follow and will be reported separately. Please correlate with it. 4. 4. Patient informed of the above results. Protocol: Lexiscan Stress ECG Details Stage: REST Duration (min): 0 min : 11 sec HR (bpm): 66 SBP (mmHg): --- DBP (mmHg): --- Stage: REST Duration (min): 1 min : 8 sec HR (bpm): 73 SBP (mmHg): 150 DBP (mmHg): 91 Stage: REST Duration (min): 5 min : 29 sec HR (bpm): 83 SBP (mmHg): 150 DBP (mmHg): 91 Stage: STAGE 1 Duration (min): 0 min : 59 sec HR (bpm): 114 SBP (mmHg): 150 DBP (mmHg): 91 Stage: RECOVERY Duration (min): 1 min : 0 sec HR (bpm): 115 SBP (mmHg): 150 DBP (mmHg): 91 Stage: RECOVERY Duration (min): 2 min : 0 sec HR (bpm): 114 SBP (mmHg): 152 DBP (mmHg): 86 Stage: RECOVERY Duration (min): 3 min : 0 sec HR (bpm): 110 SBP (mmHg): 142 DBP (mmHg): 81 Stage: RECOVERY Duration (min): 3 min : 12 sec HR (bpm): 108 SBP (mmHg): 142 DBP (mmHg): 81 Rest HR: 83 bpm Peak HR: 117 bpm Rest Sys BP: 150 mmHg Peak Sys BP: 152 mmHg Max Pred HR: 160 bpm % Max Pred HR: 73 % Target HR: 136 bpm Max RPP: 17,784 bpm*mmHg Termination Reason: Completed protocol Cardiac Symptoms: Shortness of breath, Chest pain, Headache Total Time: 1 min : 0 sec Rest Keith BP: 91 mmHg Peak Keith BP: 86 mmHg Total Dose: 0.4 mg Resting ECG Sinus rhythm. Stress ECG No ST changes. Arrhythmias None. Report Signatures
--- NOTE | ~2025-02-06 | NM_ITS ---
EXAMINATION: NM jazmyne stress w perfusion DATE: 02/06/2025 13:37 CDT INDICATION: Abnormal EKG. TECHNIQUE: Rest images were obtained following intravenous administration of 8.9 mCi Tc99m tetrofosmi n (Myoview). The patient was infused intravenously with Lexiscan (regadenoson). Then, 29.4 mCi Tc99m tetrofosmin (Myoview) was administered intravenously, and stress images were obtained. Data was recon structed into short axis and horizontal and vertical long axis SPECT images. Gated SPECT images were also obtained. COMPARISON: None. FINDINGS: There is no definite reversible or fixed perfusion abnormality to suggest ischemia or infar ction. There is no segmental wall motion abnormality. Left ventricular ejection fraction measures 7 8%. IMPRESSION: 1. No definite ischemia or infarct. 2. Normal left ventricular ejection fraction measuring 78%. Reviewed, dictated and finalized at location A.
--- OUTSIDE RECORDS SUMMARY | 2025-02-06 09:52 | XMS_ITS | Data Portability ---
Author Organization [place] [facility] [employer], Main Office Address [address] [place] [address] Assessment Encounter Date Assessment Date Assessment LastModified [...] LILIA [facility], [address], [place], [address], 3 10:46:09 lipid panel, serum 2022 023 [email or web address] Aritacoeric, [address], [place], [address], 3 11:35:00 CMP, serum or plasma 2022 023 [email or web address] Bird, [address], [place], [address], 3 11:35:17 CBC w/ auto diff 2022 023 [email or web address] Bird, [address], [place], [address], 3 11:35:17 vitamin D, 25-hydroxy, total, serum 2022 023 moe Bird, [address], [place], [address], 11:35:16 vitamin B12, serum 2022 023 [email or web address] [facility], [address], [place], [address], 11:34:53 HbA1c (hemoglobin A1c), blood 2022 023 [email or web address] [facility], [address], [place], [address], 11:35:16 Referral None recorded. Procedures None recorded. Surgeries None recorded. Imaging XR, hip, unilateral 2022 023 ANA LILIA Not available 16:09:59 Medication Orders nystatin 100,000 unit/mL oral suspension 2022 023 ANA LILIA [id number], [address] [place], [address], 10:15:43 Patient TargetsNo targets recorded. Patient InstructionsNo instructions recorded. Reason for Referral None Reported. Results Created Date Observation Date Name Description Value Unit Range Abnormal Flag Note LastModifiedBy Organization Detail LastModifiedTime 03/30/2002/05/2023 CT, abdom en + pelvi s, w/ contr ast No observ ation record ed. [address], [place], [address], 03/31/2023 15:10:53 04/06/20 23 04/05/2023 colon oscop y scree ac (PROC ) No observ ation record ed. [email or web address] Not Available 2022 09:57:37 05/18/20 23 01/15/2023 CT, abdom en + pelvi s, w/ contr ast No observ ation record ed. BARCODE Not Available 2022 16:07:04 06/16/20 23 06/16/2023 XR, hip, unila teral No observ ation record ed. [email or web address] [facility] [address], [place], [address], 06/18/2023 15:26:48 10/05/19 24 10/05/2023 MAMMO , diagn ostic , digit al, bilat eral No observ ation record ed. [email or web address] [address], [address], 10/06/2023 14:30:01 Result Notes None recorded. Problems Name Problem SNOMED Code Status Onset Date Resolution Date Notes Provider Name and Address Organization Details Recorded Time Suprapubic pain 375282866 Active Not Available [facility] 3 17:29:42 Spondyloli sthesis 429512383 Active Not Available [facility] 3 17:29:42 Left lower quadrant pain 195978904 Active Not Available [facility] 3 17:29:42 Right upper quadrant pain 947472945 Active Not Available [facility] 3 17:29:43 Hypoglycem ia 645432633 Active Not Available [facility] 3 17:29:43 Lower urinary tract symptoms 015202835 Active Not Available [facility] 3 17:29:43 Diverticul ar disease 669173375 Active Not Available [facility] 3 17:29:43 Adhesive capsulitis of shoulder 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 Active Not Available [facility] 3 17:29:43 Pharyngiti s 650350477 Active Not Available [facility] 3 17:29:43 Dysuria 44114300 Active Not Available [facility] 3 17:29:43 Fatigue 96263574 Active Not Available [facility] 3 17:29:43 Vitamin D deficiency 27817747 Active 2022 [facility] [address] [place] [address], [place], [address] , [facility] 3 15:24:21 Diverticul ar disease of colon 944343196 Active 2022 [facility] [address], [place], [address] , [place] [facility] 3 15:25:04 Chronic interstiti al cystitis 784386859 Active 2022 [facility] [address], [address], [place], [address] , [facility] 3 15:25:37 Acute urinary tract infection 242137586 Active 2022 [facility] [address], [address], [place], [address] , [facility] 3 10:09:26 Urinary tract infectious disease 47368569 Active 2022 [facility] [address], [address], [place], [address] , [facility] 3 10:14:27 Allergic rhinitis 85393919 Active 2022 [facility] [address], [address], [place], [address] , [facility] 3 10:14:33 Pain of right hip joint 1083116607209 02 Active 2022 [facility] [address], [address], [place], [address] , [facility] 3 10:14:38 Coating of mucous membrane of tongue 066284228 Active 2022 [facility] [address], [address], [place], [address] , [facility] 3 10:15:21 Lump of axillary tail of right breast 7547889033054 06 Active 2022 [facility] [address], [address], [place], [address] , [facility] 3 09:45:11 Problem Notes None recorded. Procedures Surgical History Date Name Laterality Status Provider Name and Address Organization Details Recorded Time 09/13/19 10 cholecystectomy completed LEONIE Brown Nola [facility] 01/18/2023 14:07:31 09/13/19 08 section completed LEONIE Brown [facility] 01/18/2023 14:09:03 09/13/19 00 Breast Surgery completed LEONIE Brown Nola [facility] 01/18/2023 14:08:43 Imaging Results None recorded. Procedure Notes None recorded. Medical Equipment None Reported. Allergies Allergen ID Allergen Name Allergen Category Reaction Reaction Severity Criticality Documentation Date Start Date Code Code System Note Provider Name and Address Organization Details Recorded Time 42291 codeine medicatio n rash Not available Not available 11/11/2022 2670 RxNorm Not Available [facility] 17:30:55 Medications Name Sig Start Date Stop [...] azelastine 137 mcg (0.1 %) nasal spray [place] 2 sprays twice a day by intranasa [...] blood by Pulse oximetry Body temperature Systolic And Diastolic Provider Name and Address Organization Details Last Updated DateTime 3 47919.9 6 g 27.1 kg/m2 177.8 cm 89 /min 99 % 99 % 98.4 [degF] 124/86 mm[Hg] Joslyn Akins RN [facility] [employer] [facility] 15:02:20 Date Recorded Body height Body mass index (BMI) Body weight Body temperature Heart rate Oxygen saturation Oxygen saturation in Arterial blood by Pulse oximetry Systolic And Diastolic Provider Name and Address Organization Details Last Updated DateTime 3 177.8 cm 25.8 kg/m2 29131.6 3 g 97.5 [degF] 80 /min 99 % 99 % 110/78 mm[Hg] Joslyn Akins RN [facility] [employer] [facility] 3 09:51:43 Social History Question Answer Notes LastModified by Organizat ion Details LastModified Time Tobacco Smoking Status Never Smoker Joslyn Akins RN [facility] [employer] [facility] 01/18/2023 14:04:46 What Is Your Level Of Caffeine Consumption? None [email or web address] Information not available 01/18/2023 In The 14 Days Before Symptom Onset, Have You Had Close Contact With A Laboratory-confirm ed COVID-19 While That Case Was Ill? No [email or web address] Information n ot available 01/18/2023 In The 14 Days Before Symptom Onset, Have You Had Close Contact With A Person Who Is Under Investigation For COVID-19 While That Person Was Ill? No [email or web address] Information not available 01/18/2023 What Type Of Diet Are You Following? REGULAR Information n ot available 01/18/2023 What Is The Highest Grade Or Level Of School You Have Completed Or The Highest Degree You Have Received? AC61475-9 [email or web address] Information not available 01/18/2023 Have There Been Any Changes To Your Family Or Social Situation? No [email or web address] Information no t available 01/18/2023 Do You Use Insect Repellent Routinely? No [email or web address] Information not available 06/15/2023 What Is Your Relationship Status? Information not available 01/18/2023 Do You Use Your Seat Belt Or Car Seat Routinely? Yes [email or web address] Information not available 01/18/2023 Are You Passively Exposed To Smoke? No [email or web address] Information no t available 01/18/2023 Are There Any Smokers In Your House? No [email or web address] Information not available 01/18/2023 Do You Use Sunscreen Routinely? Yes [email or web address] Information not available 06/15/2023 Have You Recently Traveled Abroad? No [email or web address] Information not available 01/18/2023 Do You Have Any Dietary Restrictions? No [email or web address] Information not available 01/18/2023 Sex: Female Functional Status Question Answer Note LastModified by Organizat ion Details LastModified Time Do you use any illicit or recreational drugs? No [email or web address] Information not available 01/18/2023 Do you or have you ever used any other forms of tobacco or nicotine? No [email or web address] Information not available 01/18/2023 What is your level of alcohol consumption? None [email or web address] Information not available 01/18/2023 Are you currently employed? 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 [id number] Information not available 11/11/2022 What is your exercise level? None [email or web address] Information not available 01/18/2023 Mental Status Question Answer Note LastModified by Organization D etails LastModified Time Do you feel stressed (tense, restless, nervous, or anxious, or unable to sleep at night)? GD23488-2 [email or web address] Information not available 01/18/2023 Family History Relationship Description Onset Age of this Age Resolved Age Notes LastModified by Organization Details LastModified Time Father Diabetes mellitus [email or web address] Not available 04/2023 14:03:23 Brother Malignant neoplasm of brain 58 [email or web address] Not available 04/2023 14:03:51 Medical History No medical history recorded. Gynecological HistoryNo gynecological history recorded. Obstetrics History GPAL:G 0 P 0 0 0 0 Past Encounters Encounter ID Performer Location Encounter Start Date Encounter Closed Date Diagnosis/Indication Diagnosis SNOMED-CT Code Diagnosis ICD10 Code Diagnosis Note [id number] [facility] [place] [address] [place] [address] 01/18/2023 14:41:01 01/18/2023 15:29:51 Adult health examination 946058753 Z00.00 well exam completed; all annual labs ordered. Cholesterol screening 27 0005713 Z13.220 Diabetes m ellitus screening 636698045 Z13.1 Vitamin D deficiency 347 70575 E55.9 Endocrine/ metabolic screening 843074815 Z13.228 Thyroid di sorder screening 144048618 Z13.29 Long-term drug therapy 352219826 Z79.899 Diverticul ar disease of colon 214736808 K57.30 post recent flare with abscess. seeing general surgeon in 2 weeks for f/u. Chronic in terstitial cystitis 572549597 N30.10 managed by urology [id number] [facility] [place] [address] [place] [address] 06/16/2023 09:42:50 06/16/2023 10:19:32 Urinary tract infectious disease 76590763 N39.0 continue augmentin abx therapy pt was already given end of May. Allergic rhinitis 158143 04 J30.9 take OTC antihistam ine. nasal steroid spray if able. Pain of ri ght hip joint 6958987032 56560 M25.551 check xray right hip. r/o OA Coating of mucous membrane of tongue 395129747 K14.3 trial of nystatin swish and swallow. Health Concerns Section Related Observation LastModified by Organization Detai ls LastModified Time None Recorded Concern Status LastModified by Organization Details LastModified Time None Recorded Advance Directives Directive None Recorded Payers Encounter Date Sequence Insurance Name Policy Number Policy Mohamud Covered Member ID Mohamud Member ID Guarantor Name 01/18/2023 1 [place] [id number] Catrachito Olguin [id number] Alana Gomez Clau 06/16/2023 1 [facility] [id number] Catrachito Olguin [id number] Alana Olguin Notes Date Note Type Note Provider Name and Address Organization Details Recorded Time 3 text/html Bowel Complaints/Fecal IncontinenceReported bypatient.Notes:previousl y saw GI, has not seen since 2020 [address] seen [address] [facility] 01/16 for c/o bowel problems (records requested)- diverticulitis was dx. here for wellness today - no current complaints for you [facility] [address], [place], [address], [employer] 02/10/2023 15:34:16 3 text/html EaracheReported bypatient.Location:[facility] Quality:aching; dull Severity:same Timing:better; gradual Context:no [...] taking augmentin for uti [facility] [address], [place], [address], [employer] 07/13/2023 00:20:22 OBGyn Episode No OBEpisode recorded.
--- OUTSIDE RECORDS SUMMARY | 2025-02-06 09:52 | XMS_ITS | Encounter Summary ---
Author Organization [facility] Address [address] [place] [address] Care Team Providers Care [employer] Buyer Name Role Phone Loni Marks Primary Care Pr ovider Reason for Visit * Reason Onset Date Comments Future Appointment 12/12/2018 Encounter Details Date Type Department Care Team (Late st Contact Info) Description 12/12/2018 Telephone [facility] [address] [place] [address] Kyle Chanel Jr., MD [address] [facility] [address] [place] [address] Future Appointment Social History Tobacco Use Types Packs/Day Years Used Date Smoking Tobacco: Never Assessed Comments Unknown Sex and Gender Information Value Date Recorded Sex Assigned at Not on file Legal Sex Female 6:32 AM [employer]QUE[employer] Gender Identity Not on file Sexual Orientation Not on file documented as of this encounter Miscellaneous Notes * Telephone Encounter - Yue Vallejo - 12/12/2018 2:21 PM CDT PT would like for someone to give her a call about appointment tomorrow regarding if she needs results for her ct scan CB: [phone] documented in this encounter Plan of Treatment Not on file documented as of this encounter Visit Diagnoses Not on filedocumented in this encounter Care Teams Automotive Buyer Relationship Specialty Start Date End Date Loni Marks PA [address] [place] [address] PCP - General 11/29/18 documented as of this encounter
--- OUTSIDE RECORDS SUMMARY | 2025-02-06 09:52 | XMS_ITS | Data Portability ---
Author Organization [facility] Ashley [facility] Address [address] [place] [address] Care Team Providers Care Training And Development Rep Name Role Phone NEAL HOLLOWAY Primary Care Provider Assessment No assessment recorded. Plan of Treatment Reminders Order Date Submit Date Provider Last Modified By Organization Details Last Modified Time Details Appointments None recorded. Lab TSH + free T4, serum 2023 024 [place] Misa, [address], [place], [address], 4 05:11:33 CBC w/ auto diff 2023 024 [facility] [facility] [address], [place], [address], 4 05:11:35 CMP, serum or plasma 2023 024 [place] Misa, [address], [place], [address], 4 05:11:34 vitamin B12 + folate, serum or blood 2023 024 [place] Misa, [address], [place], [address], 4 05:11:34 magnesium, serum or plasma 2023 024 [facility], [address], [place], [address], 4 05:11:34 lipid panel, serum 2023 024 [place] [facility], [address], [place], [address], 4 05:11:35 vitamin D, 25-hydroxy, total, serum 2023 024 [place] [facility], [address], [place], [address], 4 05:11:35 HbA1c (hemoglobin A1c), blood 2023 024 [facility] [facility], [address], [place], [address], 4 05:11:34 Referral orthopedic surgeon referral 2024 025 [email or web address] Jersey Garay, [address] [facility] [address], [place], [address], 5 12:53:01 orthopedic surgeon referral 2023 024 ANA LILIA Lomax MD, [address] [facility], [place], [address], 4 11:53:32 Procedures None recorded. Surgeries None recorded. Imaging None recorded. Medication Orders None recorded. Patient TargetsNo targets recorded. Patient Instructions Encounter Date Encounter Id Patient Instructions Last Modified By Organization Details Last Modified Time 09/25/2024 [id number] A healthy lifestyle: care instructions [email or web address] Not [...] 100-19 9 Not Available [facility] ([facility]) [address] [place], [address], 02/05/2024 11:13:27 02/04/20 24 02/05/2024 LIPID PANEL W/ CHOL/ HDL RATIO triglyceride s 99 mg/dL 0-149 Not Available [facility] ([facility]) [address] [place], [address], 02/05/2024 11:13:27 02/04/20 24 02/05/2024 LIPID PANEL W/ CHOL/ HDL RATIO HDL cholesterol 44 mg/dL >39 Not Available [facility] ([facility]) [address] [place], [address], 02/05/2024 11:13:27 02/04/20 24 02/05/2024 LIPID PANEL W/ CHOL/ HDL RATIO VLDL cholesterol alvaro 18 mg/dL 5-40 Not Available [facility] ([facility]) [address] [place], [address], 02/05/2024 11:13:27 02/04/20 24 02/05/2024 LIPID PANEL W/ CHOL/ HDL RATIO LDL chol calc ([facility]) 114 mg/dL 0-99 above high normal Not Available [facility] ([facility]) [address] [place], [address], 02/05/2024 11:13:27 02/04/20 24 02/05/2024 LIPID PANEL W/ CHOL/ HDL RATIO T. chol/HDL ratio 4.0 ratio 0.0-4. 4 T. Chol/ HDL Ratio Men Women 1/2 Avg.R isk 3.4 3.3 Avg.R isk 5.0 4.4 2X Avg.R isk 9.6 7.1 3X Avg.R isk 23.4 11.0 Not Available [facility] ([facility]) [address] [place], [address], 02/05/2024 11:13:27 02/04/20 24 02/05/2024 TSH+F REE T4 TSH 1.230 uIU/m L 0.450- 4.500 Not Available [facility] ([facility]) [address] [facility] [place], [address], 02/05/2024 11:13:28 02/04/20 24 02/05/2024 TSH+F REE T4 T4,free(dire ct) 1.37 NG/dL 0.82-1 .77 Not Available [facility] ([facility]) [address] [facility] [place], [address], 02/05/2024 11:13:28 02/04/20 24 02/05/2024 COMP. METAB OLIC PANEL (14) glucose 96 mg/dL 70-99 Not Available [facility] ([facility]) [address] [facility] [place], [address], 02/05/2024 11:13:28 02/04/20 24 02/05/2024 COMP. METAB OLIC PANEL (14) BUN 13 mg/dL 6-24 Not Available [facility] ([facility]) [address] [facility] [place], [address], 02/05/2024 11:13:28 02/04/20 24 02/05/2024 COMP. METAB OLIC PANEL (14) creatinine 0.73 mg/dL 0.57-1 .00 Not Available [facility] ([facility]) [address] [facility] [place], [address], 02/05/2024 11:13:28 02/04/20 24 02/05/2024 COMP. METAB OLIC PANEL (14) eGFR 95 mL/mi n/1.7 3 >59 Not Available [facility] ([facility]) [address] [facility] [place], [address], 02/05/2024 11:13:28 02/04/20 24 02/05/2024 COMP. METAB OLIC PANEL (14) BUN/creatini ne ratio 18 9-23 Not Available [facility] ([facility]) [address] [place], [address], 02/05/2024 11:13:28 02/04/20 24 02/05/2024 COMP. METAB OLIC PANEL (14) sodium 137 mmol/ L 134-14 4 Not Available [facility] ([facility]) [address] [place], [address], 02/05/2024 11:13:28 02/04/20 24 02/05/2024 COMP. METAB OLIC PANEL (14) potassium 4.2 mmol/ L 3.5-5. 2 Not Available [facility] ([facility]) [address] [facility], [place], [address], 02/05/2024 11:13:28 02/04/20 24 02/05/2024 COMP. METAB OLIC PANEL (14) chloride 99 mmol/ L 96-106 Not Available [facility] ([facility]) [address] [place], [address], 02/05/2024 11:13:28 02/04/20 24 02/05/2024 COMP. METAB OLIC PANEL (14) carbon dioxide, total 24 mmol/ L 20-29 Not Available [facility] ([facility]) [address] [place], [address], 02/05/2024 11:13:28 02/04/20 24 02/05/2024 COMP. METAB OLIC PANEL (14) calcium 9.9 mg/dL 8.7-10 .2 Not Available [facility] ([facility]) [address] [place], [address], 02/05/2024 11:13:28 02/04/20 24 02/05/2024 COMP. METAB OLIC PANEL (14) protein, total 7.0 g/dL 6.0-8. 5 Not Available [facility] ([facility]) [address] [facility] [place], [address], 02/05/2024 11:13:28 02/04/20 24 02/05/2024 COMP. METAB OLIC PANEL (14) albumin 4.4 g/dL 3.8-4. 9 Not Available [facility] ([facility]) [address] [place], [address], 02/05/2024 11:13:28 02/04/20 24 02/05/2024 COMP. METAB OLIC PANEL (14) globulin, total 2.6 g/dL 1.5-4. 5 Not Available [facility] ([facility]) [address] [place], [address], 02/05/2024 11:13:28 02/04/20 24 02/05/2024 COMP. METAB OLIC PANEL (14) A/G ratio 1.7 1.2-2. 2 Not Available [facility] ([facility]) [address] [place], [address], 02/05/2024 11:13:28 02/04/20 24 02/05/2024 COMP. METAB OLIC PANEL (14) bilirubin, total 0.6 mg/dL 0.0-1. 2 Not Available [facility] ([facility]) [address] [place], [address], 02/05/2024 11:13:28 02/04/20 24 02/05/2024 COMP. METAB OLIC PANEL (14) alkaline phosphatase 80 IU/L 44-121 Not Available [facility] ([facility]) [address] [place], [address], 02/05/2024 11:13:28 02/04/20 24 02/05/2024 COMP. METAB OLIC PANEL (14) AST (SGOT) 18 IU/L 0-40 Not Available [facility] ([facility]) [address] [facility] [place], [address], 02/05/2024 11:13:28 02/04/20 24 02/05/2024 COMP. METAB OLIC PANEL (14) ALT (SGPT) 17 IU/L 0-32 Not Available [facility] ([facility]) [address] [facility] [place], [address], 02/05/2024 11:13:28 02/04/20 24 02/05/2024 VITAM IN B12 AND FOLAT E vitamin B12 870 pg/mL 232-12 45 Not Available [facility] ([facility]) [address] [facility] [place], [address], 02/05/2024 11:13:28 02/04/20 24 02/05/2024 VITAM IN B12 AND FOLAT E folate (folic acid), serum >20.0 NG/mL >3.0 A serum folat e yen ntrat ion of less than 3.1 ng/mL is consi dered to repre sent clini alvaro defic iency . Not Available [facility] ([facility]) [address] [facility], [place], [address], 02/05/2024 11:13:28 02/04/2002/05/2024 HEMOG LOBIN A1C hemoglobin A1C 5.6 % 4.8-5. 6 Predi abete s: 5.7 - 6.4 Diabe aleja: >6.4 Glyce jordan contr ol for adult s with diabe aleja: <7.0 Not Available [facility] ([facility]) [address] [place], [address], 02/05/2024 11:13:29 02/04/2002/05/2024 MAGNE SIUM magnesium 1.9 mg/dL 1.6-2. 3 Not Available [facility] ([facility]) [address] [place], [address], 02/05/2024 11:13:29 02/04/2002/05/2024 CBC WITH DIFFE RENTI AL/PL ATELE T WBC 4.2 x10e3 /uL 3.4-10 .8 Not Available [facility] ([facility]) [address] [place], [address], 02/05/2024 11:13:29 02/04/20 24 02/05/2024 CBC WITH DIFFE RENTI AL/PL ATELE T RBC 4.41 x10e6 /uL 3.77-5 .28 Not Available [facility] ([facility]) [address] [place], [address], 02/05/2024 11:13:29 02/04/2002/05/2024 CBC WITH DIFFE RENTI AL/PL ATELE T hemoglobin 12.9 g/dL 11.1-1 5.9 Not Available [facility] ([facility]) [address] [place], [address], 02/05/2024 11:13:29 02/04/20 24 02/05/2024 CBC WITH DIFFE RENTI AL/PL ATELE T hematocrit 40.2 % 34.0-4 6.6 Not Available [facility] ([facility]) [address] [place], [address], 02/05/2024 11:13:29 02/04/2002/05/2024 CBC WITH DIFFE RENTI AL/PL ATELE T MCV 91 fL 79-97 Not Available [facility] ([facility]) [address] [place], [address], 02/05/2024 11:13:29 02/04/2002/05/2024 CBC WITH DIFFE RENTI AL/PL ATELE T MCH 29.3 pg 26.6-3 3.0 Not Available [facility] ([facility]) [address] [place], [address], 02/05/2024 11:13:29 02/04/2002/05/2024 CBC WITH DIFFE RENTI AL/PL ATELE T MCHC 32.1 g/dL 31.5-3 5.7 Not Available [facility] ([facility]) [address] [facility], [place], [address], 02/05/2024 11:13:29 02/04/20 24 02/05/2024 CBC WITH DIFFE RENTI AL/PL ATELE T RDW 12.1 % 11.7-1 5.4 Not Available [facility] ([facility]) [address] [facility], [place], [address], 02/05/2024 11:13:29 02/04/20 24 02/05/2024 CBC WITH DIFFE RENTI AL/PL ATELE T platelets 326 x10e3 /uL 150-45 0 Not Available [facility] ([facility]) [address] [facility], [place], [address], 02/05/2024 11:13:29 02/04/20 24 02/05/2024 CBC WITH DIFFE RENTI AL/PL ATELE T neutrophils 57 % notest ab. Not Available [facility] ([facility]) [address] [facility], [place], [address], 02/05/2024 11:13:29 02/04/20 24 02/05/2024 CBC WITH DIFFE RENTI AL/PL ATELE T lymphs 29 % notest ab. Not Available [facility] ([facility]) [address] [facility], [place], [address], 02/05/2024 11:13:29 02/04/20 24 02/05/2024 CBC WITH DIFFE RENTI AL/PL ATELE T monocytes 10 % notest ab. Not Available [facility] ([facility]) [address] [facility], [place], [address], 02/05/2024 11:13:29 02/04/20 24 02/05/2024 CBC WITH DIFFE RENTI AL/PL ATELE T eos 3 % notest ab. Not Available [facility] ([facility]) [address] [facility], [place], [address], 02/05/2024 11:13:29 02/04/20 24 02/05/2024 CBC WITH DIFFE RENTI AL/PL ATELE T basos 1 % notest ab. Not Available [facility] ([facility]) [address] [facility], [place], [address], 02/05/2024 11:13:29 02/04/20 24 02/05/2024 CBC WITH DIFFE RENTI AL/PL ATELE T neutrophils (absolute) 2.4 x10e3 /uL 1.4-7. 0 Not Available [facility] ([facility]) [address] [facility], [place], [address], 02/05/2024 11:13:29 02/04/20 24 02/05/2024 CBC WITH DIFFE RENTI AL/PL ATELE T lymphs (absolute) 1.2 x10e3 /uL 0.7-3. 1 Not Available [facility] ([facility]) [address] [facility], [place], [address], 02/05/2024 11:13:29 02/04/20 24 02/05/2024 CBC WITH DIFFE RENTI AL/PL ATELE T monocytes(ab solute) 0.4 x10e3 /uL 0.1-0. 9 Not Available [facility] ([facility]) [address] [place], [address], 02/05/2024 11:13:29 02/04/20 24 02/05/2024 CBC WITH DIFFE RENTI AL/PL ATELE T eos (absolute) 0.1 x10e3 /uL 0.0-0. 4 Not Available [facility] ([facility]) [address] [facility], [place], [address], 02/05/2024 11:13:29 02/04/20 24 02/05/2024 CBC WITH DIFFE RENTI AL/PL ATELE T baso (absolute) 0.0 x10e3 /uL 0.0-0. 2 Not Available [facility] ([facility]) [address] [facility], [place], [address], 02/05/2024 11:13:29 02/04/20 24 02/05/2024 CBC WITH DIFFE RENTI AL/PL ATELE T immature granulocytes 0 % notest ab. Not Available [facility] ([facility]) [address] [facility], [place], [address], 02/05/2024 11:13:29 02/04/2002/05/2024 CBC WITH DIFFE RENTI AL/PL ATELE T immature grans (abs) 0.0 x10e3 /uL 0.0-0. 1 Not Available [facility] ([facility]) [address] [place], [address], 02/05/2024 11:13:29 02/04/20 24 02/05/2024 VITAM IN [...] Rosa triplett [place]: [facility] . 2. Abe whelan MF, Bink[place] ey [place], Phuong off-F errar i [place], et al. Evalu ation , treat ment, and preve ntion of vitam in D defic iency : an Endoc rine Socie ty clini alvaro pract ice guide line. JCEM. 2010; 96(7) :1911 -30. Not Available [facility] ([facility]) [address], [place], [address], 02/05/2024 11:13:30 07/20/20 24 07/20/2024 pap, IG + HR HPV Pap negati ve Not Available Not Available 17:25:24 04/03/20 24 04/03/2024 CT, abdom en + pelvi s, w/ contr ast No observ ation record ed. [address] [facility], [place], [address], 04/05/2024 23:03:03 09/14/19 25 09/12/2024 CT, abdom en + pelvi s, w/ contr ast No observ ation record ed. [address] [address], [place], [address], 09/14/2024 17:38:23 10/26/19 25 10/26/2024 XR, knee No observ ation record ed. [address] [facility], [place], [address], 10/27/2024 13:57:16 01/30/20 25 01/16/2025 elect saeed rodriguez am No observ ation record ed. [address] [facility], [place], [address], 01/30/2025 15:19:57 01/31/20 25 01/30/2025 XR, chest No observ ation record ed. [address], [place], [address], 01/30/2025 15:18:21 01/31/20 25 01/30/2025 CT, chest + abdom en + pelvi s, w/ contr ast No observ ation record ed. [address], [place], [address], 01/31/2025 14:00:22 Result Notes None recorded. 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 2023 Portia Dodge [place] [facility] 4 09:57:25 Body mass index 25-29 - overweight 793934477 Active 2024 Jose Nava [place], [place] [facility] 5 12:28:58 Overweight 308876904 Active 2024 TYRA Sol Attn: Kirk sterling,[address] [place], [place], [address] [place] [address] 2, [place] - [facility] 5 21:22:48 Nasal congestion 56867240 Active 2024 TYRA Sol Attn: Kirk sterling,[address] [place], [place], [address] [place] [address] 2, [place] - [facility] 5 12:48:31 Osteoarthri tis of right hip joint 9144409391026 07 Active 2024 TYRA Sol Attn: Kirk sterling,[address] [place], [address], [place] [facility] 5 12:48:32 Overweight in adulthood with body mass index of 25 or more but less than 30 750853777 Active 2024 TYRA Sol Attn: Kirk sterling,[address] [place], [address], [place] [facility] 5 12:48:51 Problem Notes None recorded. Procedures Surgical History Date Name Laterality Status Provider Name and Address Organization Details Recorded Time 04/05/20 23 colonoscopy completed Portia Dodge [place] - [facility] 12/20/2023 10:03:42 09/13/19 10 cholecystectomy completed Portia Dodge [facility] 12/20/2023 10:00:26 09/13/19 08 section completed Portia Dodge [facility] 12/20/2023 10:00:36 09/13/19 00 Breast Surgery completed Portia Dodge [facility] 12/20/2023 10:00:55 Imaging Results None recorded. Procedure Notes None recorded. Medical Equipment None Reported. Allergies Allergen ID Allergen Name Allergen Category Reaction Reaction Severity Criticality Documentation Date Start Date Code Code System Note Provider Name and Address Organization Details Recorded Time 866989 codeine medicatio n rash Not available Not available 12/20/2023 2670 RxNorm Portia Dodge [facility], [facility] 09:56:40 Medications Name Sig Start Date Stop [...] Available No t Available Vitals Date Recorded Systolic And Diastolic Provider Name and Address Organization Details Last Updated DateTime 09/25/2024 128/82 mm[Hg] TYRA Sol Attn: Accounting,[address] [place], [address], [facility] 09/25/2024 12:52:24 Date Recorded Body height Body mass index (BMI) Body weight Respiratory rate Oxygen saturation Oxygen saturation in Arterial blood by Pulse oximetry Heart rate Systolic And Diastolic Provider Name and Address Organization Details Last Updated DateTime 177.8 cm 26.8 kg/m2 49431.7 7 g 20 /min 98 % 98 % 87 /min 130/82 mm[Hg] Jose Nava MA [facility] 12:42:56 Date Recorded Respiratory rate Systolic And Diastolic Provider Name and Address Organization Details Last Updated DateTime 01/12/2025 16 /min 140/80 mm[Hg] TYRA Sol Attn: Accounting,[address] [facility], [place], [address], [facility] 01/12/2025 10:10:08 Date Recorded Body height Body mass index (BMI) Body weight Heart rate Oxygen saturation Oxygen saturation in Arterial blood by Pulse oximetry Systolic And Diastolic Provider Name and Address Organization Details Last Updated DateTime 5 177.8 cm 27.5 kg/m2 91182.6 6 g 93 /min 98 % 98 % 128/66 mm[Hg] Dagoberto Ornelas MA [facility] 5 09:59:56 Date Recorded Respiratory rate Body height Body mass index (BMI) Body weight Oxygen saturation Oxygen saturation in Arterial blood by Pulse oximetry Heart rate Systolic And Diastolic Systolic And Diastolic Provider Name and Address Organization Details Last Updated DateTime 4 20 /min 177.8 cm 26.5 kg/m2 91671.2 3 g 97 % 97 % 78 /min 142/88 mm[Hg] 132/78 mm[Hg] Jose Nava MA [facility] 4 09:50:46 Social History Question Answer Notes LastModified by Organizat ion Details LastModified Time Tobacco Smoking Status Never Smoker Portia blum, [facility] 12/20/2023 09:59:00 Are You Blind Or Do You Have Difficulty Seeing? No Glasses Information n ot available 01/28/2024 What Is Your Level Of Caffeine Consumption? None [email or web address] Information not available 12/20/2023 In The 14 Days Before Symptom Onset, Have You Had Close Contact With A Laboratory-confirm ed COVID-19 While That Case Was Ill? No [email or web address] Information n ot available 12/20/2023 In The 14 Days Before Symptom Onset, Have You Had Close Contact With A Person Who Is Under Investigation For COVID-19 While That Person Was Ill? No [email or web address] Information not available 12/20/2023 Have You Been To An Area Known To Be High Risk For COVID-19? No [email or web address] Information not available 12/20/2023 Are You Deaf Or Do You Have Serious Difficulty Hearing? No Information not available 01/28/2024 What Type Of Diet Are You Following? REGULAR [email or web address] Information n ot available 12/20/2023 Are There Any Guns Present In Your Home? No Information not available 09/25/2024 What Was The Date Of Your Most Recent Tobacco Screening? 09/25/2024 Information not available 09/25/2024 What Is Your Relationship Status? [email or web address] Information not available 12/20/2023 Do You Use Your Seat Belt Or Car Seat Routinely? Yes [email or web address] Information not available 12/20/2023 Do You Have Smoke And Carbon Monoxide Detectors In Your Home? Yes [email or web address] Information not available 12/20/2023 Do You Use Sunscreen Routinely? Yes Information not available 12/20/2023 Has Tobacco Cessation Counseling Been Provided? Yes Information not available 01/28/2024 On What Date Was Tobacco Cessation Counseling Provided? 09/25/2024 Information not available 09/25/2024 Sex: Female Functional Status Question Answer Note LastModified by Organizat ion Details LastModified Time Do you use any illicit or recreational drugs? No [email or web address] Information not available 12/20/2023 Do you or have you ever used any other forms of tobacco or nicotine? No [email or web address] Information not available 12/20/2023 What is your level of alcohol consumption? None [email or web address] Information not available 12/20/2023 Are you currently employed? No [email or web address] Information not available 12/20/2023 Are you able to care for yourself? Yes Information not available 12/20/2023 What is your exercise level? None [email or web address] Information not available 12/20/2023 Mental Status None recorded. Family History Relationship Description Onset Age of this Age Resolved Age Notes LastModified by Organization Details LastModified Time Father Diabetes mellitus [email or web address] Not available 12/19 09:57:45 Father Hypertensive disorder [email or web address] available 2023 11:48:07 Brother Malignant neoplasm of brain 58 Not available 12/19 09:58:02 Brother Hypertensive disorder [...] Skin Problems N Anemia N Heart Attack ([place]) N Anxiety Disorder N Diabetes N Muscle, [...] SNOMED-CT Code Diagnosis ICD10 Code Diagnosis Note [id number] Jonah Sherman MD [facility] [address] [place] [id number] 01/28/2024 09:24:58 01/28/2024 11:10:07 Pain of right hip joint 0076078904 42225 M25.551 as above. Osteoarthritis of hip 23 9178383 M16.9 refer to Orthopedic s for evaluation and options for her known OA of right hip Cholesterol screening 27 4752097 Z13.220 fasting lipids due Diabetes m ellitus screening 297929919 Z13.1 a1c screening due Thyroid di sorder screening 702186844 Z13.29 TFT panel due Long-term drug therapy 839943917 Z79.899 routine cmp, cbc, b12, folate and magnesium labs ordered. Vitamin D deficiency 347 79688 E55.9 pt requests Vit D lab order [id number] Jonah Sherman MD [facility] [address] [place] [address] 09/25/2024 12:16:48 09/25/2024 13:06:10 Body mass index 25-29 - overweight 510223156 Z68.26 BMI is 26.8 Overweight 064394518 E66 .3 Diverticul itis of sigmoid colon 277494337 K57.32 Patient has improved well on Cipro and Flagyl combinatio n, advance diet slowly Pain of knee region 1003 455672 M25.569 pain in left medial knee after twisting wrong recently. Refer to orthopedic s [id number] Jonah Sherman MD [facility] - Jason Moura [address] [place] [address] 01/12/2025 09:28:42 01/12/2025 10:39:00 Preprocedural examination done [id number] 95850 Z01.818 Preop exam completed. she will be getting preop labs and ekg next week for preop Osteoarthr itis of right hip joint [id number] 84965 M16.11 planned on february 08 for JOSÉ MIGUEL. Nasal congestion 5759150 0 R09.81 Over-the-c ounter nasal steroid spray suggested and may also take Sudafed PE as needed Overweight in adulthood with body mass index of 25 or more but less than 30 [id number] E66.3 Z68.27 BMI 27.5 Health Concerns Section Related Observation LastModified by Organization Detai ls LastModified Time None Recorded Concern Status LastModified by Organization Details LastModified Time None Recorded Advance Directives Directive None Recorded Payers Encounter Date Sequence Insurance Name Policy Number Policy Mohamud Covered Member ID Mohamud Member ID Guarantor Name 01/28/2024 1 [facility] [id number] Catrachito Olguin [id number] Alana Olguin 09/25/2024 1 [facility] [id number] Catrachito Olguin [id number] Alana Olguin 01/12/2025 1 [employer] ( - PPO) Catrachito Olguin [id number] Alana Olguin Notes Date Note Type Note [...] that leg. TYRA Sol Attn: Accounting,[address] [facility] [facility], [place], [address], [facility] 02/13/2024 20:45:09 09/25/2024 text/html Patient is here [...] referral placed TYRA Sol Attn: Accounting,[address] [facility], [place], [address], [facility] 10/12/2024 21:23:03 01/12/2025 text/html Musculoskeletal PainReported bypatient.[facility] Quality:sharp Severity:pain level without meds /10;worsening Duration:present for 6-12 months Timing:constant Context:prior back problems Alleviating factors:rest Aggravating factors:movement/posit ioning; bending over; twisting Associated Symptoms:no fever; no weak limbs; no tingling; no numbness of the legs/feet; no incontinenceNotes:plan s for hip replacement pt also reports some nasal congestion that is bothering her. TYRA Sol Attn: Accounting,[address] [facility], [place], [address], [facility] 02/04/2025 12:54:12 OBGyn Episode No OBEpisode recorded.
--- OUTSIDE RECORDS SUMMARY | 2025-02-06 09:52 | XMS_ITS | Clinical Summary ---
Author Organization [facility] Address [address] [place] [address] Care Team Providers Care Compotype Operator Name Role Phone Loni Marks Primary Care Pr ovider Source Comments [facility],non-owned Affiliates and Associated Physician Practices is amultiple site organization consisting of ambulatory clinics and hospital sitesin [place], [place], [place] and [place]. This disclosure is being madepursuant to the Care Everywhere program and may not contain all information available regarding this patient. 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
--- OUTSIDE RECORDS SUMMARY | 2025-02-06 09:52 | XMS_ITS | Clinical Summary ---
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
--- OUTSIDE RECORDS SUMMARY | 2025-02-06 09:53 | XMS_ITS | Continuity of Care Document ---
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 [address] , [address], [place], [address], [place]. tel:[phone] Family History Family Member Type Diagnosis Age At Onset No Information Payers Payer name Insurance type Covered democrat ID Authoriza tion(s) [facility] Commercial CI [id number] Social History Type Description Quantity Date Captured [...]
--- OUTSIDE RECORDS SUMMARY | 2025-02-06 09:53 | XMS_ITS | Data Portability ---
Author Organization [facility] Address [address] [place] [address] Assessment Encounter Date Assessment Date Assessment LastModified [...] recorded. Lab biopsy, endometri al 2015 Tanna [email or web address] [facility], [address] [place] [address], [address], [place], [address], 6 13:08:18 pathology study - emb 2015 Tanna [email or web address] [facility], [address], [address], [place], [address], 6 12:06:24 urinalysi s, dipstick 2015 016 In-Office Order, Internal Use Only DO Not Attach Compendium DO Not Attach Compendium, Do Not Delete/merge, [id number] 6 10:54:31 test, urine 2015 016 [email or web address] In-Office Order, Internal Use Only DO Not Attach Compendium DO Not Attach Compendium, Do Not Delete/merge, [id number] 6 18:49:48 urinalysi s, dipstick 2015 016 [email or web address] In-Office Order, Internal Use Only DO Not Attach Compendium DO Not Attach Compendium, Do Not Delete/merge, [id number] 6 18:49:48 urinalysi s, dipstick 2015 016 In-Office Order, Internal Use Only DO Not Attach Compendium DO Not Attach Compendium, Do Not Delete/merge, [id number] 6 11:58:48 bacterial vaginosis + vaginitis panel, vaginal 2015 016 ANA LILIA [facility], [address], [address], [place], [address], 6 06:04:50 TSH + free T4, serum 2015 016 ANA LILIA [facility], [address], [address], [place], [address], 6 07:22:45 progester one, serum 2015 016 ANA LILIA [facility], [address], [address], [place], [address], 6 07:22:49 HbA1c (hemoglob in A1c), blood 2015 016 [facility]NA L[facility]IA [facility], [facility], [address], [place], [address], 6 07:22:47 CMP, serum or plasma 2015 016 ANA LILIA [facility], [address] [place], [place] [address]diann [address], [address], [place], [address], 6 07:22:46 FSH (follicle -stimulat ing hormone), serum 2015 016 [facility]IA [facility], [facility] Miamidiann [address], [address], [place], [address], 6 07:22:48 CBC w/ auto diff 2015 016 [facility], [address] [place] [address] [address], [address], [place], [address], 6 07:22:45 estradiol , serum 2015 016 [facility]IA [facility], [address] [place], [place] [address]ojvan [address], [address], [place], [address], 6 07:22:48 urinalysi s, dipstick 2015 Tanna song In-Office Order, Internal Use Only DO Not Attach Compendium DO Not Attach Compendium, Do Not Delete/merge, [id number] 6 16:20:53 culture, urine 2015 016 ANA LILIA COOPER, [facility] [address], [address], [place], [address], 6 06:12:59 pap, IG + HPV, cervical 2015 016 ANA LILIA OBRIEN, [address], [address], [place], [address], 6 16:41:55 bacterial vaginosis + vaginitis panel, vaginal 2015 016 ANA LILIA OBRIEN, [address], [address], [place], [address], 6 06:11:53 HSV (1+2) DNA, qual, PCR, unspecifi ed specimen 2015 016 ANA LILIA OBRIEN, [address], [address], [place], [address], 6 06:11:54 unlisted lab - kathy 6 species profile, MANJIT 2015 016 ANA LILIA COOPERNARAYAN, [address] Ndiayeabidageetadiann [address], [address], [place], [address], 6 06:11:54 test, urine 2014 Jaqui song In-Office Order, Internal Use Only DO Not Attach Compendium DO Not Attach Compendium, Do Not Delete/merge, [id number] 5 09:30:07 CBC w/ auto diff 2014 015 ANA LILIA COOPERNARAYAN, [address] Ndiayemike [address], [address], [place], [address], 5 16:34:31 progester one, serum 2014 015 ANA LILIA WESLEYJULIETA, [address] Ndiayemike [address], [address], [place], [address], 5 16:34:36 HbA1c (hemoglob in A1c), blood 2014 015 ANA LILIA WESLEYJULIETA, FitoLana [address], [address], [place], [address], 5 16:34:33 CMP, serum or plasma 2014 015 ANA LILIA [facility], [address], [address], [place], [address], 5 16:34:32 TSH, serum or plasma 2014 015 [email or web address] [facility], [address], [address], [place], [address], 5 16:20:44 FSH (follicle -stimulat ing hormone), serum 2014 015 ANA LILIA [facility], [address], [address], [place], [address], 5 16:34:34 estradiol , serum 2014 015 ANA LILIA OBRIEN, [address], [address], [place], [address], 5 16:34:35 urinalysi s, dipstick 2014 015 [email or web address] In-Office Order, Internal Use Only DO Not Attach Compendium DO Not Attach Compendium, Do Not Delete/merge, [id number] 5 09:30:07 bacterial vaginosis + vaginitis panel, vaginal 2014 015 ANA LILIA [facility], [address], [address], [place], [address], 5 11:41:55 HSV (1+2) DNA, qual, PCR, unspecifi ed specimen 2014 015 ANA LILIA OBRIEN, [address], [address], [place], [address], 5 11:41:56 culture, vaginal/r ectal, streptoco ccus group B 2014 015 [facility], [address], [address], [place], [address], 5 11:41:56 Referral gastroent erologist referral - colitis and diverticu litis. needs colonosco py and f/u with specialis t 2015 016 [facility], [address] [facility] [facility], [place], [address], 6 17:31:59 Procedures None recorded. Surgeries None recorded. Imaging US, transvagi nal 2015 016 [facility], [address] [place], [address], 6 13:50:22 Medication Orders Diflucan 150 mg tablet 2015 016 [id number], [address] [place], [address], 6 18:32:13 Ransom 5 mg-325 mg tablet 2015 016 [id number], [address] [place], [address], 6 18:32:13 ibuprofen 800 mg tablet 2015 016 [facility], [address] [place], [address], 6 18:32:13 nystatin 100,000 unit/gram topical cream 2014 015 [email or web address] [id number], [address] [place], [address], 6 15:38:41 fluconazo le 150 mg tablet 2014 015 duncan [id number], [address] [place], [address], 6 15:38:41 Patient TargetsNo targets recorded. Patient Instructions Encounter Date Encounter Id Patient Instructions Last Modified By Organization Details Last Modified Time 12/20/[id number] candidiasis: care instructions [email or web address] Not available 12/24/2014 10:07:34 11/04/2015 [id number] irritable bowel syndrome: care instructions [email or web address] Not available 11/04/2015 16:20:54 05/13/2016 [id number] chronic pelvic pain: care instructions Not available 05/13/2016 18:32:13 06/03/2016 [id number] uterine fibroids: care instructions [email or web address] Not available 06/04/2016 09:11:19 06/10/2016 [id number] chronic pelvic pain: care instructions [email or web address] Not available 06/11/2016 12:06:05 uterine fibroids: care instructions [email or web address] Not available 06/11/2016 12:06:05 Reason for Referral colitis and diverticulitis. needs colonoscopy and f/u with specialist Referring Physician: Cosme Gloria, ECOLOGY TEACHER, Encounter Date: 11/04/2015 Results Created Date Observation Date Name Description Value Unit Range Abnormal Flag Note LastModifiedBy Organization Detail LastModifiedTime 06/10/2006/10/2016 urina lysis , dipst ick Leukocytes Trace Not Available In-Offi ce Order Internal Use Only DO Not Attach Compendium DO Not Attach Compendium, Do Not Delete/merge, [id number] 06/10/2016 12:30:19 06/10/20 16 06/10/2016 urina lysis , dipst ick Nitrite negati ve Not Available In-Office Order Internal Use Only DO Not Attach Compendium DO Not Attach Compendium, Do Not Delete/merge, [id number] 06/10/2016 12:30:19 06/10/20 16 06/10/2016 urina lysis [...] 06/10/2016 urina lysis , dipst ick Specific [place] 1.015 Not Available In-Off ice Order Internal [...] 06/03/2016 urina lysis , dipst ick Specific [place] 1.020 Not Available In-Off ice Order Internal [...] 05/13/2016 urina lysis , dipst ick Specific [place] 1.030 Not Available In-Off ice Order Internal [...] 11/04/2015 urina lysis , dipst ick Specific [place] 1.030 Not Available In-Off ice Order Internal [...] 12/21/1912/20/2014 urina lysis , dipst ick Specific [place] 1.020 Not Available In-Off ice Order Internal [...] 12/10/2014 urina lysis , dipst ick Specific [place] 1.015 Not Available In-Off ice Order Internal [...] LOW - 0 score Not Available [facility] ([facility]) [address] [facility], [place], [address], 12/26/2014 11:41:55 12/21/19 15 12/25/2014 bacte rial vagin osis + vagin itis panel , vagin al bvab 2 LOW - 0 score Not Available [facility] ([facility]) [address] [facility], [place], [address], 12/26/2014 11:41:55 12/21/1912/25/2014 bacte rial vagin osis [...] IS NOT NECES DARÍO. Not Available [facility] ([facility]) [address] [facility] [address], [place], [address], 12/26/2014 11:41:55 12/21/1912/25/2014 bacte rial vagin osis + vagin itis panel , vagin al kathy albicans, MANJIT NEGATI VE negati ve Not Available [facility] ([facility]) [address] [facility], [place], [address], 12/26/2014 11:41:55 12/21/19 15 12/25/2014 bacte rial [...] IS NOT NECES DARÍO. Not Available [facility] ([facility]) [address] [place], [address], 12/26/2014 11:41:55 12/21/1912/26/2014 bacte rial vagin osis + vagin itis panel , vagin al trich vag by MANJIT NEGATI VE negati ve Not Available [facility] ([facility]) [address] [place], [address], 12/26/2014 11:41:55 12/21/19 15 12/26/2014 bacte rial vagin osis + vagin itis panel , vagin al chlamydia trachomatis, MANJIT NEGATI VE negati ve Not Available [facility] ([facility]) [address] [place], [address], 12/26/2014 11:41:55 12/21/19 15 12/26/2014 bacte rial vagin osis + vagin itis panel , vagin al neisseria gonorrhoeae, MANJIT NEGATI VE negati ve Not Available [facility] ([facility]) [address] [place], [address], 12/26/2014 11:41:55 12/21/1912/24/2014 HSV (1+2) DNA, qual, PCR, unspe cifie d speci men hsv 1 MANJIT NEGATI VE negati ve Not Available [facility] ([facility]) [address] [place], [address], 12/26/2014 11:41:56 12/21/192015 HSV (1+2) DNA, qual, PCR, unspe cifie d speci men hsv 2 MANJIT NEGATI VE negati ve Not Available [facility] ([facility]) [address] [facility], [place], [address], 12/26/2014 11:41:56 12/21/19 15 12/23/2014 cultu re, [...] LINES , MMWR, 2009) Not Available [facility] ([facility]) [address] [facility], [place], [address], 12/26/2014 11:41:56 12/21/19 15 12/21/2014 CBC w/ auto diff WBC 5.5 x10e3 /uL 3.4-10 .8 Not Available [facility] ([facility]) [address] [facility], [place], [address], 12/26/2014 16:34:31 12/21/19 15 12/21/2014 CBC w/ auto diff RBC 4.68 x10e6 /uL 3.77-5 .28 Not Available [facility] ([facility]) [address] [place], [address], 12/26/2014 16:34:31 12/21/19 15 12/21/2014 CBC w/ auto diff hemoglobin 13.9 g/dL 11.1-1 5.9 Not Available [facility] ([facility]) [address] [facility], [place], [address], 12/26/2014 16:34:31 12/21/19 15 12/21/2014 CBC w/ auto diff hematocrit 41.5 % 34.0-4 6.6 Not Available [facility] ([facility]) [address] [facility], [place], [address], 12/26/2014 16:34:31 12/21/19 15 12/21/2014 CBC w/ auto diff MCV 89 fL 79-97 Not Available [facility] ([facility]) [address] [facility], [place], [address], 12/26/2014 16:34:31 12/21/19 15 12/21/2014 CBC w/ auto diff MCH 29.7 pg 26.6-3 3.0 Not Available [facility] ([facility]) [address] [facility], [place], [address], 12/26/2014 16:34:31 12/21/19 15 12/21/2014 CBC w/ auto diff MCHC 33.5 g/dL 31.5-3 5.7 Not Available [facility] ([facility]) [address] [facility], [place], [address], 12/26/2014 16:34:31 12/21/19 15 12/21/2014 CBC w/ auto diff RDW 13.2 % 12.3-1 5.4 Not Available [facility] ([facility]) [address] [facility], [place], [address], 12/26/2014 16:34:31 12/21/19 15 12/21/2014 CBC w/ auto diff platelets 298 x10e3 /uL 150-37 9 Not Available [facility] ([facility]) [address] [facility], [place], [address], 12/26/2014 16:34:31 12/21/19 15 12/21/2014 CBC w/ auto diff neutrophils 55 % Not Available [facility] ([facility]) [address] [place], [address], 12/26/2014 16:34:31 12/21/19 15 12/21/2014 CBC w/ auto diff lymphs 33 % Not Available [facility] ([facility]) [address] [place], [address], 12/26/2014 16:34:31 12/21/1912/21/2014 CBC w/ auto diff monocytes 8 % Not Available [facility] ([facility]) [address] [place], [address], 12/26/2014 16:34:31 12/21/1912/21/2014 CBC w/ auto diff eos 3 % Not Available [facility] ([facility]) [address] [place], [address], 12/26/2014 16:34:31 12/21/19 15 12/21/2014 CBC w/ auto diff basos 1 % Not Available [facility] ([facility]) [address] [place], [address], 12/26/2014 16:34:31 12/21/1912/21/2014 CBC w/ auto diff neutrophils (absolute) 3.1 x10e3 /uL 1.4-7. 0 Not Available [facility] ([facility]) [address] [place] [address], [address], 12/26/2014 16:34:31 12/21/1912/21/2014 CBC w/ auto diff lymphs (absolute) 1.8 x10e3 /uL 0.7-3. 1 Not Available [facility] ([facility]) [address] [place] [address], [address], 12/26/2014 16:34:31 12/21/19 15 12/21/2014 CBC w/ auto diff monocytes(ab solute) 0.4 x10e3 /uL 0.1-0. 9 Not Available [facility] ([facility]) [address] [place], [address], 12/26/2014 16:34:31 12/21/19 15 12/21/2014 CBC w/ auto diff eos (absolute) 0.2 x10e3 /uL 0.0-0. 4 Not Available [facility] ([facility]) [address] [place], [address], 12/26/2014 16:34:31 12/21/19 15 12/21/2014 CBC w/ auto diff baso (absolute) 0.0 x10e3 /uL 0.0-0. 2 Not Available [facility] ([facility]) [address] [facility], [place], [address], 12/26/2014 16:34:31 12/21/19 15 12/21/2014 CBC w/ auto diff immature granulocytes 0 % Not Available [facility] ([facility]) [address] [facility], [place], [address], 12/26/2014 16:34:31 12/21/1912/21/2014 CBC w/ auto diff immature grans (abs) 0.0 x10e3 /uL 0.0-0. 1 Not Available [facility] ([facility]) [address] [facility], [place], [address], 12/26/2014 16:34:31 12/21/1912/21/2014 CMP, serum or plasm a glucose, serum 99 mg/dL 65-99 Not Available [facility] ([facility]) [address] [place], [address], 12/26/2014 16:34:32 12/21/1912/21/2014 CMP, serum or plasm a BUN 13 mg/dL 6-24 Not Available [facility] ([facility]) [address] [place], [address], 12/26/2014 16:34:32 12/21/19 15 12/21/2014 CMP, serum or plasm a creatinine, serum 0.81 mg/dL 0.57-1 .00 Not Available [facility] ([facility]) [address] [facility] [place], [address], 12/26/2014 16:34:32 12/21/19 15 12/21/2014 CMP, serum or plasm a eGFR if nonafricn AM 85 mL/mi n/1.7 3 >59 Not Available [facility] ([facility]) [address] [facility] [place], [address], 12/26/2014 16:34:32 12/21/19 15 12/21/2014 CMP, serum or plasm a eGFR if africn AM 98 mL/mi n/1.7 3 >59 Not Available [facility] ([facility]) [address] [facility] [place], [address], 12/26/2014 16:34:32 12/21/19 15 12/21/2014 CMP, serum or plasm a BUN/creatini ne ratio 16 9-23 Not Available [facility] ([facility]) [address] [place], [address], 12/26/2014 16:34:32 12/21/19 15 12/21/2014 CMP, serum or plasm a sodium, serum 140 mmol/ L 134-14 4 Not Available [facility] ([facility]) [address] [place], [address], 12/26/2014 16:34:32 12/21/19 15 12/21/2014 CMP, serum or plasm a potassium, serum 4.3 mmol/ L 3.5-5. 2 Not Available [facility] ([facility]) [address] [place], [address], 12/26/2014 16:34:32 12/21/19 15 12/21/2014 CMP, serum or plasm a chloride, serum 97 mmol/ L 97-108 Not Available [facility] ([facility]) [address] [facility] [place], [address], 12/26/2014 16:34:32 12/21/1912/21/2014 CMP, serum or plasm a carbon dioxide, total 27 mmol/ L 18-29 Not Available [facility] ([facility]) [address] [facility] [place], [address], 12/26/2014 16:34:32 12/21/1912/21/2014 CMP, serum or plasm a calcium, serum 10.3 mg/dL 8.7-10 .2 high Not Available [facility] ([facility]) [address] [facility] [place], [address], 12/26/2014 16:34:32 12/21/1912/21/2014 CMP, serum or plasm a protein, total, serum 7.2 g/dL 6.0-8. 5 Not Available [facility] ([facility]) [address] [place], [address], 12/26/2014 16:34:32 12/21/1912/21/2014 CMP, serum or plasm a albumin, serum 4.7 g/dL 3.5-5. 5 Not Available [facility] ([facility]) [address] [facility] [place], [address], 12/26/2014 16:34:32 12/21/1912/21/2014 CMP, serum or plasm a globulin, total 2.5 g/dL 1.5-4. 5 Not Available [facility] ([facility]) [address] [place], [address], 12/26/2014 16:34:32 12/21/1912/21/2014 CMP, serum or plasm a A/G ratio 1.9 1.1-2. 5 Not Available [facility] ([facility]) [address] [place], [address], 12/26/2014 16:34:32 12/21/19 15 12/21/2014 CMP, serum or plasm a bilirubin, total 0.5 mg/dL 0.0-1. 2 Not Available [facility] ([facility]) [address] [place], [address], 12/26/2014 16:34:32 12/21/19 15 12/21/2014 CMP, serum or plasm a alkaline phosphatase, S 80 IU/L 39-117 Not Available [facility] ([facility]) [address] [place], [address], 12/26/2014 16:34:32 12/21/19 15 12/21/2014 CMP, serum or plasm a AST (SGOT) 26 IU/L 0-40 Not Available [facility] ([facility]) [address] [place] [address], [address], 12/26/2014 16:34:32 12/21/1912/21/2014 CMP, serum or plasm a ALT (SGPT) 25 IU/L 0-32 Not Available [facility] ([facility]) [address] [place], [address], 12/26/2014 16:34:32 12/21/19 15 12/20/2014 yfn (risk [...] HOLGUIN ON SURGE RY. Not Available [facility] ([facility]) [address] [place], [address], 12/26/2014 16:34:32 12/21/1912/20/2014 yfn (risk of ovari an malig ezio algor ithm score ), serum (lizzie enopa usal) postmenopaus al interp: low COMMEN T IF THE PATIE NT IS POSTM ENOPA USAL, THEN THE POSTM ENOPA USAL YFN SCORE OF LESS THAN 2.77 IS CONSI STENT WITH A LOW LIKEL IHOOD OF FINDI NG A MALADRIEL EZIO ON SURGE RY. Not Available [facility] ([facility]) [address] [facility], [place], [address], 12/26/2014 16:34:32 12/21/19 15 12/20/2014 yfn (risk [...] DIAGN OSTIC ASSAY . Not Available [facility] ([facility]) [address] [facility], [place], [address], 12/26/2014 16:34:32 12/21/19 15 12/24/2014 yfn (risk of ovari an malig ezio algor ithm score ), serum (lizzie enopa usal) he4 45 pmol/ L 0-150 FUJIR EBIO EIA METHO DOLOG Y . CA125 VALUE S OBTAI NELLY WITH DIFFE RENT ASSAY METHO DS OR KITS CANNO T BE USED INTER LARSON EABLY . Not Available [facility] ([facility]) [address] [facility], [place], [address], 12/26/2014 16:34:32 12/21/19 12/26/2014 yfn (risk of ovari an malig ezio algor ithm score ), serum (lizzie enopa usal) cancer antigen 125 (Ca125) 16.2 U/mL 0.0-35 .0 ABBOT T CMIA METHO DOLOG Y Not Available [facility] ([facility]) [address] [place], [address], 12/26/2014 16:34:32 12/21/1912/26/2014 yfn (risk of ovari an malig ezio algor ithm score ), serum (lizzie enopa usal) premenopausa l yfn 0.59 see below Not Available [facility] ([facility]) [address] [place], [address], 12/26/2014 16:34:32 12/21/1912/26/2014 yfn (risk of ovari an malig ezio algor ithm score ), serum (lizzie enopa usal) postmenopaus al yfn 1.10 see below Not Available [facility] ([facility]) [address] [place], [address], 12/26/2014 16:34:32 12/21/1912/21/2014 HbA1c (hemo globi n A1c), blood hemoglobin A1C 5.3 % 4.8-5. 6 . INCRE ASED RISK FOR DIABE SHON: 5.7 - 6.4 DIABE SHON: >6.4 GLYCE HARJINDER CONTR OL FOR ADULT S WITH DIABE SHON: <7.0 Not Available [facility] ([facility]) [address] [place], [address], 12/26/2014 16:34:33 12/21/1912/21/2014 ca 125, serum cancer antigen (Ca) 125 15.6 U/mL 0.0-34 .0 FREDY ECLIA METHO DOLOG Y Not Available [facility] ([facility]) [address] [place], [address], 12/26/2014 16:34:34 12/21/1912/21/2014 FSH (foll icle- stimu latin g hormo ne), serum FSH 88.6 mIU/m L FOLLI CULAR PHASE 3.5 - 12.5 OVULA TION PHASE 4.7 - 21.5 LUTEA L PHASE 1.7 - 7.7 POSTM ENOPA USAL 25.8 - 134.8 Not Available [facility] ([facility]) [address] [place], [address], 12/26/2014 16:34:34 12/21/19 15 12/21/2014 estra diol, serum estradiol <5.1 pg/mL ADULT FEMAL E: FOLLI CULAR PHASE 12.5 - 166.0 OVULA TION PHASE 85.8 - 498.0 LUTEA L PHASE 43.8 - 211.0 POSTM ENOPA USAL <6.0 - 54.7 PREGN TINY 1ST TRIME STER 215.0 - >4300 .0 GIRLS (1-10 YEARS ) 6.0 - 27.0 FREDY ECLIA METHO DOLOG Y Not Available [facility] ([facility]) [address] [place], [address], 12/26/2014 16:34:35 12/21/1912/21/2014 TSH, ultra -sens itive , serum TSH 1.140 uIU/m L 0.450- 4.500 Not Available [facility] ([facility]) [address] [place], [address], 12/26/2014 16:34:36 12/21/1912/21/2014 proge stero ne, serum progesterone 0.4 NG/mL FOLLI CULAR PHASE 0.2 - 1.5 LUTEA L PHASE 1.7 - 27.0 OVULA TION PHASE 0.8 - 3.0 PREGN ANT FIRST TRIME STER 8.8 - 48.6 SECON D TRIME STER 12.4 - 75.8 THIRD TRIME STER 58.5 - 222.3 POSTM ENOPA USAL 0.1 - 0.8 Not Available [facility] ([facility]) [address] [place], [address], 12/26/2014 16:34:36 11/04/19 16 11/05/2015 TSH + free T4, serum TSH 1.100 uIU/m L 0.450- 4.500 Not Available [facility] ([facility]) [address] [place], [address], 11/05/2015 07:22:45 11/04/19 16 11/05/2015 TSH + free T4, serum T4,free(dire ct) 1.22 NG/dL 0.82-1 .77 Not Available [facility] ([facility]) [address] [place], [address], 11/05/2015 07:22:45 11/04/19 16 11/05/2015 CBC w/ auto diff WBC 5.5 x10e3 /uL 3.4-10 .8 Not Available [facility] ([facility]) [address] [place], [address], 11/05/2015 07:22:45 11/04/19 16 11/05/2015 CBC w/ auto diff RBC 4.75 x10e6 /uL 3.77-5 .28 Not Available [facility] ([facility]) [address] [place], [address], 11/05/2015 07:22:45 11/04/19 16 11/05/2015 CBC w/ auto diff hemoglobin 13.9 g/dL 11.1-1 5.9 Not Available [facility] ([facility]) [address] [place], [address], 11/05/2015 07:22:45 11/04/19 16 11/05/2015 CBC w/ auto diff hematocrit 40.8 % 34.0-4 6.6 Not Available [facility] ([facility]) [address] [place], [address], 11/05/2015 07:22:45 11/04/19 16 11/05/2015 CBC w/ auto diff MCV 86 fL 79-97 Not Available [facility] ([facility]) [address] [facility], [place], [address], 11/05/2015 07:22:45 11/04/19 16 11/05/2015 CBC w/ auto diff MCH 29.3 pg 26.6-3 3.0 Not Available [facility] ([facility]) [address] [facility], [place], [address], 11/05/2015 07:22:45 11/04/19 16 11/05/2015 CBC w/ auto diff MCHC 34.1 g/dL 31.5-3 5.7 Not Available [facility] ([facility]) [address] [facility], [place], [address], 11/05/2015 07:22:45 11/04/19 16 11/05/2015 CBC w/ auto diff RDW 13.0 % 12.3-1 5.4 Not Available [facility] ([facility]) [address] [facility], [place], [address], 11/05/2015 07:22:45 11/04/19 16 11/05/2015 CBC w/ auto diff platelets 408 x10e3 /uL 150-37 9 above high normal Not Available [facility] ([facility]) [address] [facility], [place], [address], 11/05/2015 07:22:45 11/04/19 16 11/05/2015 CBC w/ auto diff neutrophils 51 % Not Available [facility] ([facility]) [address] [facility], [place], [address], 11/05/2015 07:22:45 11/04/19 16 11/05/2015 CBC w/ auto diff lymphs 40 % Not Available [facility] ([facility]) [address] [facility], [place], [address], 11/05/2015 07:22:45 11/04/19 16 11/05/2015 CBC w/ auto diff monocytes 7 % Not Available [facility] ([facility]) [address] [place], [address], 11/05/2015 07:22:45 11/04/19 16 11/05/2015 CBC w/ auto diff eos 2 % Not Available [facility] ([facility]) [address] [place], [address], 11/05/2015 07:22:45 11/04/19 16 11/05/2015 CBC w/ auto diff basos 0 % Not Available [facility] ([facility]) [address] [place], [address], 11/05/2015 07:22:45 11/04/19 16 11/05/2015 CBC w/ auto diff immature cells PRODUCT SAFETY COMPLIANCE LEADER Not Available [facility] ([facility]) [address] [place], [address], 11/05/2015 07:22:45 11/04/19 16 11/05/2015 CBC w/ auto diff neutrophils (absolute) 2.8 x10e3 /uL 1.4-7. 0 Not Available [facility] ([facility]) [address] [place], [address], 11/05/2015 07:22:45 11/04/19 16 11/05/2015 CBC w/ auto diff lymphs (absolute) 2.2 x10e3 /uL 0.7-3. 1 Not Available [facility] ([facility]) [address] [place], [address], 11/05/2015 07:22:45 11/04/19 16 11/05/2015 CBC w/ auto diff monocytes(ab solute) 0.4 x10e3 /uL 0.1-0. 9 Not Available [facility] ([facility]) [address] [place], [address], 11/05/2015 07:22:45 11/04/19 16 11/05/2015 CBC w/ auto diff eos (absolute) 0.1 x10e3 /uL 0.0-0. 4 Not Available [facility] ([facility]) [address] [place], [address], 11/05/2015 07:22:45 11/04/19 16 11/05/2015 CBC w/ auto diff baso (absolute) 0.0 x10e3 /uL 0.0-0. 2 Not Available [facility] ([facility]) [address] [facility], [place], [address], 11/05/2015 07:22:45 11/04/19 16 11/05/2015 CBC w/ auto diff immature granulocytes 0 % Not Available [facility] ([facility]) [address] [place], [address], 11/05/2015 07:22:45 11/04/19 16 11/05/2015 CBC w/ auto diff immature grans (abs) 0.0 x10e3 /uL 0.0-0. 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 Not Available [facility] ([facility]) [address] [place], [address], 11/05/2015 07:22:45 11/04/19 16 11/05/2015 CBC w/ auto diff hematology comments: PRODUCT SAFETY COMPLIANCE LEADER Not Available [facility] ([facility]) [address] [place], [address], 11/05/2015 07:22:45 11/04/19 16 11/05/2015 CMP, serum or plasm a glucose, serum 108 mg/dL 65-99 above high normal Not Available [facility] ([facility]) [address] [place], [address], 11/05/2015 07:22:46 11/04/19 16 11/05/2015 CMP, serum or plasm a BUN 11 mg/dL 6-24 Not Available [facility] ([facility]) [address] [place], [address], 11/05/2015 07:22:46 11/04/19 16 11/05/2015 CMP, serum or plasm a creatinine, serum 0.76 mg/dL 0.57-1 .00 Not Available [facility] ([facility]) [address] [place], [address], 11/05/2015 07:22:46 11/04/19 16 11/05/2015 CMP, serum or plasm a eGFR if nonafricn AM 91 mL/mi n/1.7 3 >59 Not Available [facility] ([facility]) [address] [place], [address], 11/05/2015 07:22:46 11/04/19 16 11/05/2015 CMP, serum or plasm a eGFR if africn AM 105 mL/mi n/1.7 3 >59 Not Available [facility] ([facility]) [address] [place], [address], 11/05/2015 07:22:46 11/04/19 16 11/05/2015 CMP, serum or plasm a BUN/creatini ne ratio 14 9-23 Not Available [facility] ([facility]) [address] [place], [address], 11/05/2015 07:22:46 11/04/19 16 11/05/2015 CMP, serum or plasm a sodium, serum 143 mmol/ L 134-14 4 Not Available [facility] ([facility]) [address] [place], [address], 11/05/2015 07:22:46 11/04/19 16 11/05/2015 CMP, serum or plasm a potassium, serum 4.5 mmol/ L 3.5-5. 2 Not Available [facility] ([facility]) [address] [place], [address], 11/05/2015 07:22:46 11/04/19 16 11/05/2015 CMP, serum or plasm a chloride, serum 102 mmol/ L 97-108 Not Available [facility] ([facility]) [address] [facility] [place], [address], 11/05/2015 07:22:46 11/04/19 16 11/05/2015 CMP, serum or plasm a carbon dioxide, total 25 mmol/ L 18-29 Not Available [facility] ([facility]) [address] [place], [address], 11/05/2015 07:22:46 11/04/19 16 11/05/2015 CMP, serum or plasm a calcium, serum 9.9 mg/dL 8.7-10 .2 Not Available [facility] ([facility]) [address] [place], [address], 11/05/2015 07:22:46 11/04/1911/05/2015 CMP, serum or plasm a protein, total, serum 7.4 g/dL 6.0-8. 5 Not Available [facility] ([facility]) [address] [place], [address], 11/05/2015 07:22:46 11/04/19 16 11/05/2015 CMP, serum or plasm a albumin, serum 4.6 g/dL 3.5-5. 5 Not Available [facility] ([facility]) [address] [place], [address], 11/05/2015 07:22:46 11/04/1911/05/2015 CMP, serum or plasm a globulin, total 2.8 g/dL 1.5-4. 5 Not Available [facility] ([facility]) [address] [place], [address], 11/05/2015 07:22:46 11/04/1911/05/2015 CMP, serum or plasm a A/G ratio 1.6 1.1-2. 5 Not Available [facility] ([facility]) [address] [place], [address], 11/05/2015 07:22:46 11/04/19 16 11/05/2015 CMP, serum or plasm a bilirubin, total 0.3 mg/dL 0.0-1. 2 Not Available [facility] ([facility]) [address] [place], [address], 11/05/2015 07:22:46 11/04/19 16 11/05/2015 CMP, serum or plasm a alkaline phosphatase, S 84 IU/L 39-117 Not Available [facility] ([facility]) [address] [place], [address], 11/05/2015 07:22:46 11/04/19 16 11/05/2015 CMP, serum or plasm a AST (SGOT) 24 IU/L 0-40 Not Available [facility] ([facility]) [address] [place], [address], 11/05/2015 07:22:46 11/04/19 16 11/05/2015 CMP, serum or plasm a ALT (SGPT) 28 IU/L 0-32 Not Available [facility] ([facility]) [address] [place], [address], 11/05/2015 07:22:46 11/04/19 16 11/05/2015 HbA1c (hemo globi n A1c), blood hemoglobin A1C 5.5 % 4.8-5. 6 PRE-D IABET ES: 5.7 - 6.4 DIABE SHON: >6.4 GLYCE HARJINDER CONTR OL FOR ADULT S WITH DIABE SHON: <7.0 Not Available [facility] ([facility]) [address] [place], [address], 11/05/2015 07:22:47 11/04/19 16 11/05/2015 FSH (foll icle- stimu latin g hormo ne), serum FSH 102.7 mIU/m L FOLLI CULAR PHASE 3.5 - 12.5 OVULA TION PHASE 4.7 - 21.5 LUTEA L PHASE 1.7 - 7.7 POSTM ENOPA USAL 25.8 - 134.8 Not Available [facility] ([facility]) [address] [facility], [place], [address], 11/05/2015 07:22:47 11/04/19 16 11/05/2015 estra diol, serum estradiol 9.1 pg/mL ADULT FEMAL E: FOLLI CULAR PHASE 12.5 - 166.0 OVULA TION PHASE 85.8 - 498.0 LUTEA L PHASE 43.8 - 211.0 POSTM ENOPA USAL <6.0 - 54.7 PREGN TINY 1ST TRIME STER 215.0 - >4300 .0 GIRLS (1-10 YEARS ) 6.0 - 27.0 FREDY ECLIA METHO DOLOG Y Not Available [facility] ([facility]) [address] [facility], [place], [address], 11/05/2015 07:22:48 11/04/19 16 11/05/2015 proge stero ne, serum progesterone 0.3 NG/mL FOLLI CULAR PHASE 0.2 - 1.5 LUTEA L PHASE 1.7 - 27.0 OVULA TION PHASE 0.8 - 3.0 PREGN ANT FIRST TRIME STER 8.8 - 48.6 SECON D TRIME STER 12.4 - 75.8 THIRD TRIME STER 58.5 - 222.3 POSTM ENOPA USAL 0.1 - 0.8 Not Available [facility] ([facility]) [address] [facility], [place], [address], 11/05/2015 07:22:49 11/04/19 16 11/06/2015 cultu re, urine urine culture, routine FINAL REPORT Not Available [facility] ([facility]) [address] [facility], [place], [address], 11/06/2015 06:12:59 11/04/19 16 11/06/2015 cultu re, urine result 1 FORD Gambino MIXED UROGE NITAL CRISTI 10,00 0-25, 000 COLON Y FORMI NG UNITS PER ML Not Available [facility] ([facility]) [address] [place], [address], 11/06/2015 06:12:59 11/04/19 16 11/05/2015 pap, IG + HPV, cervi alon diagnosis: FORD VALADEZ FOR INTRA EPITH ELIAL LESIO N AND MALADRIEL EZIO . Not Available [facility] ([facility]) [address] [place], [address], 11/07/2015 16:41:55 11/04/19 16 11/05/2015 pap, IG + HPV, cervi alon specimen adequacy: FORD Gambino SATIS FACTO RY FOR EVALU ATION . ENDOC ERVIC AL AND/O R SQUAM OUS METAP LASTI C CELLS (ENDO CERVI ALON COMPO NENT) ARE PRESE NT. Not Available [facility] ([facility]) [address] [place], [address], 11/07/2015 16:41:55 11/04/19 16 11/05/2015 pap, IG + HPV, cervi alon clinician provided ICD10: FORD Gambino Z01.4 19 Not Available [facility] ([facility]) [address] [place], [address], 11/07/2015 16:41:55 11/04/19 16 11/05/2015 pap, IG + HPV, cervi alon performed by: FORD GIVENS , CYTOT KEYANA Gambino (ASCP ) Not Available [facility] ([facility]) [address] [place], [address], 11/07/2015 16:41:55 11/04/19 16 11/05/2015 pap, IG + HPV, cervi alon . . Not Available [facility] ([facility]) [address] [place], [address], 11/07/2015 16:41:55 11/04/19 16 11/05/2015 pap, IG [...] TS DO OCCUR . Not Available [facility] ([facility]) [address] [place], [address], 11/07/2015 16:41:55 11/04/19 16 11/05/2015 pap, IG + HPV, cervi alon test methodology: COMMEN T THIS LIQUI D BASED THINP REP(R ) PAP TEST WAS SCREE NELLY WITH THE USE OF AN IMAGE GUIDE Diana Umana Not Available [facility] ([facility]) [address] [facility], [place], [address], 11/07/2015 16:41:55 11/04/19 16 11/07/2015 pap, IG + HPV, cervi alon HPV aptima NEGATI VE negati ve THIS TEST DETEC TS FOURT EEN HIGH- RISK HPV TYPES (16/1 8/31/ 33/35 /39/4 5/ 51/52 /56/5 8/59/ 66/68 ) WITHO UT DIFFE RENTI ATION . Not Available [facility] ([facility]) [address] [place], [address], 11/07/2015 16:41:55 11/04/19 16 11/06/2015 bacte rial vagin osis + vagin itis panel , vagin al trich vag by MANJIT NEGATI VE negati ve Not Available [facility] ([facility]) [address] [place], [address], 11/08/2015 06:11:53 11/04/19 16 11/07/2015 bacte rial vagin osis + vagin itis panel , vagin al atopobium vaginae LOW - 0 score Not Available [facility] ([facility]) [address] [place], [address], 11/08/2015 06:11:53 11/04/19 16 11/07/2015 bacte rial vagin osis + vagin itis panel , vagin al bvab 2 LOW - 0 score Not Available [facility] ([facility]) [address] [place], [address], 11/08/2015 06:11:53 11/04/19 16 11/07/2015 bacte rial [...] IS NOT NECES DARÍO. Not Available [facility] ([facility]) [address] [facility], [place], [address], 11/08/2015 06:11:53 11/04/19 16 11/07/2015 bacte rial vagin osis + vagin itis panel , vagin al kathy albicans, MANJIT NEGATI VE negati ve Not Available [facility] ([facility]) [address] [facility], [place], [address], 11/08/2015 06:11:53 11/04/19 16 11/07/2015 bacte rial [...] TO FLUCO NAZOL E. Not Available [facility] ([facility]) [address] [place], [address], 11/08/2015 06:11:53 11/04/19 16 11/07/2015 bacte rial vagin osis + vagin itis panel , vagin al chlamydia trachomatis, MANJIT NEGATI VE negati ve Not Available [facility] ([facility]) [address] [place], [address], 11/08/2015 06:11:53 11/04/19 16 11/07/2015 bacte rial vagin osis + vagin itis panel , vagin al neisseria gonorrhoeae, MANJIT NEGATI VE negati ve Not Available [facility] ([facility]) [address] [place], [address], 11/08/2015 06:11:53 11/04/19 16 11/07/2015 STI panel kathy albicans, MANJIT TNP DUPLI CLAUDIA PROCE DURE ORDER ED. Not Available [facility] ([facility]) [address] [place], [address], 11/08/2015 06:11:54 11/04/19 16 11/07/2015 STI panel kathy glabrata, MANJIT TNP DUPLI CLAUDIA PROCE DURE ORDER ED. Not Available [facility] ([facility]) [address] [facility], [place], [address], 11/08/2015 06:11:54 11/04/19 16 11/07/2015 STI panel kathy tropicalis, MANJIT NEGATI VE negati ve Not Available [facility] ([facility]) [address] [place], [address], 11/08/2015 06:11:54 11/04/19 16 11/07/2015 STI panel kathy parapsilosis , MANJIT NEGATI VE negati ve Not Available [facility] ([facility]) [address] [facility], [place], [address], 11/08/2015 06:11:54 11/04/19 16 11/07/2015 STI panel kathy lusitaniae, MANJIT NEGATI VE negati ve Not Available [facility] ([facility]) [address] [place], [address], 11/08/2015 06:11:54 11/04/19 16 11/07/2015 STI panel [...] IS NOT NECES DARÍO. Not Available [facility] ([facility]) [address] [facility], [place], [address], 11/08/2015 06:11:54 11/04/19 16 11/06/2015 HSV (1+2) DNA, qual, PCR, unspe cifie d speci men hsv 1 MANJIT NEGATI VE negati ve Not Available [facility] ([facility]) [address] [place], [address], 11/08/2015 06:11:54 11/04/19 16 11/06/2015 HSV (1+2) DNA, qual, PCR, unspe cifie d speci men hsv 2 MANJIT NEGATI VE negati ve Not Available [facility] ([facility]) [address] [place], [address], 11/08/2015 06:11:54 12/04/19 16 12/04/2015 yfn (risk [...] EZIO ON SURGE RY. Not Available [facility] ([facility]) [address] [place], [address], 12/06/2015 16:25:24 12/04/19 16 12/04/2015 yfn (risk [...] EZIO ON SURGE RY. Not Available [facility] ([facility]) [address] [place], [address], 12/06/2015 16:25:24 12/04/19 16 12/04/2015 yfn (risk [...] DIAGN OSTIC ASSAY . Not Available [facility] ([facility]) [address] [place], [address], 12/06/2015 16:25:24 12/04/19 16 12/06/2015 yfn (risk of ovari an malig ezio algor ithm score ), serum (lizzie enopa usal) cancer antigen 125 (Ca125) 16.6 U/mL 0.0-35 .0 ABBOT T CMIA METHO DOLOG Y Not Available [facility] ([facility]) [address] [facility], [place], [address], 12/06/2015 16:25:24 12/04/19 16 12/06/2015 yfn (risk of ovari an malig ezio algor ithm score ), serum (lizzie enopa usal) he4 42 pmol/ L 0-150 FUJIR EBIO EIA METHO DOLOG Y CA125 VALUE S OBTAI NELLY WITH DIFFE RENT ASSAY METHO DS OR KITS CANNO T BE USED INTER LARSON EABLY . Not Available [facility] ([facility]) [address] [facility], [place], [address], 12/06/2015 16:25:24 12/04/19 16 12/06/2015 yfn (risk of ovari an malig ezio algor ithm score ), serum (lizzie enopa usal) premenopausa l yfn 0.51 see below Not Available [facility] ([facility]) [address] [place], [address], 12/06/2015 16:25:24 12/04/19 16 12/06/2015 yfn (risk of ovari an malig ezio algor ithm score ), serum (lizzie enopa usal) postmenopaus al yfn 1.05 see below Not Available [facility] ([facility]) [address] [facility], [place], [address], 12/06/2015 16:25:24 05/13/20 16 05/15/2016 bacte rial vagin osis + vagin itis panel , vagin al trich vag by MANJIT NEGATI VE negati ve Not Available [facility] ([facility]) [address] [facility], [place], [address], 05/17/2016 06:04:50 05/13/20 16 05/15/2016 bacte rial vagin osis + vagin itis panel , vagin al chlamydia trachomatis, MANJIT NEGATI VE negati ve Not Available [facility] ([facility]) [address] [facility], [place], [address], 05/17/2016 06:04:50 05/13/20 16 05/15/2016 bacte rial vagin osis + vagin itis panel , vagin al neisseria gonorrhoeae, MANJIT NEGATI VE negati ve Not Available [facility] ([facility]) [address] [place], [address], 05/17/2016 06:04:50 05/13/20 16 05/16/2016 bacte rial vagin osis + vagin itis panel , vagin al kathy albicans, MANJIT NEGATI VE negati ve Not Available [facility] ([facility]) [address] [place], [address], 05/17/2016 06:04:50 05/13/20 16 05/16/2016 bacte rial [...] IS NOT NECES DARÍO. Not Available [facility] ([facility]) [address] [facility], [place], [address], 05/17/2016 06:04:50 05/13/20 16 05/17/2016 bacte rial vagin osis + vagin itis panel , vagin al atopobium vaginae LOW - 0 score Not Available [facility] ([facility]) [address] [facility], [place], [address], 05/17/2016 06:04:50 05/13/20 16 05/17/2016 bacte rial vagin osis + vagin itis panel , vagin al bvab 2 LOW - 0 score Not Available [facility] ([facility]) [address] [facility], [place], [address], 05/17/2016 06:04:50 05/13/20 16 05/17/2016 bacte rial [...] E DANIELA CTERI STICS DETER MINED BY [employer]. IT HAS NOT BEEN CLEAR ED OR APPRO KARSON BY THE FOOD AND DRUG ADMIN ISTRA TION. THE FDA HAS DETER MINED THAT SUCH CLEAR ANCE OR APPRO GABRIELLA IS NOT NECES DARÍO. Not Available [facility] ([facility]) [address] [facility], [place], [address], 05/17/2016 06:04:50 12/13/19 15 12/12/2014 ultra sound , pelvi c trans abdom inal No observ ation record ed. [facility] (Imaging) [address] [place], [address], 12/20/2014 19:01:30 09/04/20 15 09/02/2015 MAMMO , diagn ostic , digit al, bilat eral No observ ation record ed. [email or web address] [facility] [address], [place], [address], 05/13/2016 13:15:22 12/03/19 16 11/04/2015 CT, abdom en + pelvi s, w/ contr ast No observ ation record ed. [address] [facility] [address] [facility], [place], [address], 05/13/2016 16:18:12 12/06/19 16 12/06/2015 ultra sound , pelvi c trans abdom inal & trans vagin al No observ ation record ed. [address] ([employer]) [address] [place], [address], 05/13/2016 16:18:12 05/15/20 16 05/15/2016 US, trans vagin al No observ ation record ed. [email or web address] [place] [address] [address] [place], [address], 06/02/2016 09:44:41 Result Notes None recorded. Problems Name Problem SNOMED Code Status Onset Date Resolution Date Notes Provider Name and Address Organization Details Recorded Time Endometriosi s of uterus 80685271 Active Cosme Gloria null, [place] - [facility] 6 13:25:11 Menopausal syndrome 977230681 Active Valerie Quiroz MD Attn: Accounting, [address] [facility], [place], [address], [facility] - [facility] 6 18:44:51 Dermatophyto sis of the body Active Valerie Quiroz MD Attn: Accounting, [address], [place], [address] [place] [address], [place] - [facility] 6 18:44:51 Candidiasis 30448465 Active Valerie Quiroz MD Attn: Accounting, [address], [place], [address] [place] [address], [facility] - [facility] 6 18:44:51 Headache 86408862 Active Valerie Quiroz MD Attn: Accounting, [address], [place], [address] [place] [address], [place] - [facility] 6 18:44:51 Irritable bowel syndrome 95930836 Active Valerie Quiroz MD Attn: Accounting, [address], [place], [address] [place] [address], [facility] - [facility] 6 18:44:51 Left sided abdominal pain 197408075 Active Valerie Quiroz MD Attn: Accounting, [address], [place], [address] [place] [address], [facility] - [facility] 6 18:44:51 Chronic pelvic pain of female 431674975 Active Natanael Valentino null, [place] - [facility] 6 10:54:30 Vaginitis 04517887 Active Valerie Quiroz MD Attn: Accounting, [address], [place], [address] [place] [address], [place] - [facility] 6 18:44:51 Uterine leiomyoma 40521183 Active Cosme Juani null[place] [facility] 6 13:25:11 Endometrium thickened 662766590 Active Cosme Juani [place] [facility] 13:25:11 Problem Notes None recorded. Procedures Surgical History Date Name Laterality Status Provider Name and Address Organization Details Recorded Time 11/04/19 16 Date of Last Pap Smear completed Laure Pedraza [place] - [facility] 05/13/2016 15:06:51 09/13/19 09 Cholecystectomy completed Brenda Van MA [place] - [facility] 10/30/2014 10:26:54 09/13/19 09 Dilation and Curettage completed Brenda Van MA [facility] 12/10/2014 12:17:22 12/21/19 08 Caesarean Section completed Laure Pedraza MA [facility] 12/20/2014 15:28:58 09/13/19 03 Orthopedic Surgery completed Brenda Van MA [facility] 12/10/2014 12:17:22 09/13/19 03 Breast Surgery completed Brenda Van MA [facility] 12/10/2014 12:23:51 Laparoscopy completed Brenda Van MA [facility] 12/10/2014 12:17:22 Imaging Results None recorded. Procedure Notes None recorded. Medical Equipment None Reported. Allergies Allergen ID Allergen Name Allergen Category Reaction Reaction Severity Criticality Documentation Date Start Date Code Code System Note Provider Name and Address Organization Details Recorded Time 49787 codeine medicatio n itching moderate Not available 10/30/2014 2670 RxNorm rash Brenda Van MA null, [facility] 5 12:14:39 Medications Name Sig Start Date [...] Body weight Body mass index (BMI) Systolic And Diastolic Provider Name and Address Organization Details Last Updated DateTime 11/04/2015 177.8 cm 62964.289 26 g 28.4 kg/m2 130/92 mm[Hg] Rebecca Slater MA [facility] 11/04/2015 15:13:22 Date Recorded Body height Body mass index (BMI) Body weight Systolic And Diastolic Provider Name and Address Organization Details Last Updated DateTime 12/20/2014 177.8 cm 28.7 kg/m2 33460.474 g 124/88 mm[Hg] Laure Pedraza MA [facility] 12/20/2014 15:31:11 Date Recorded Body weight Body height Body mass index (BMI) Systolic And Diastolic Provider Name and Address Organization Details Last Updated DateTime 05/13/2016 25040.881 63 g 177.8 cm 28.6 kg/m2 128/86 mm[Hg] Laure Pedraza MA [facility] 05/13/2016 15:05:42 Date Recorded Body height Body mass index (BMI) Body weight Systolic And Diastolic Provider Name and Address Organization Details Last Updated DateTime 06/03/2016 177.8 cm 28.7 kg/m2 30967.474 g 118/82 mm[Hg] Rebecca Salter MA [facility] 06/03/2016 10:36:57 Date Recorded Body height Body weight Body mass index (BMI) Systolic And Diastolic Provider Name and Address Organization Details Last Updated DateTime 06/10/2016 177.8 cm 97017.881 63 g 28.6 kg/m2 130/92 mm[Hg] Rebecca SlaterDANIELA [facility] 06/10/2016 12:34:41 Social History Question Answer Notes LastModified by [employer] Details LastModified Time Tobacco Smoking Status Never Smoker Brenda Van MA [facility], [facility] 10/30/2014 10:26:55 Do You Have An Advance Directive? No [email or web address] Information not available 10/30/2014 Is Blood Transfusion Acceptable In An Emergency? Yes [email or web address] Information not available 10/30/2014 What Is Your Level Of Caffeine Consumption? None [email or web address] Information not available 10/30/2014 How Much Tobacco Do You Chew? None [email or web address] Information not available 10/30/2014 What Type Of Diet Are You Following? REGULAR Information not available 10/30/2014 Education 4 Year College [email or web address] Information not available 10/30/2014 Live Alone Or With Others? With Others [email or web address] Information not available 10/30/2014 How Many Children Do You Have? 1 [email or web address] Information not available 10/30/2014 Performs Monthly Self-breast Exam? Yes [email or web address] Information no t available 10/30/2014 Do You Use Protection During Sex? Usually [email or web address] Information not available 10/30/2014 What Is Your Relationship Status? [email or web address] Information not available 10/30/2014 Seat Belts Used Routinely Yes [email or web address] Information not available 10/30/2014 Are You Sexually Active? Yes [email or web address] Information not available 10/30/2014 General Stress Level High Information not available 10/30/2014 Do You Use Sunscreen Routinely? Yes [email or web address] Information not available 10/30/2014 Sex: Unknown Functional Status Question Answer Note LastModified by [employer] Details LastModified Time What is your level of alcohol consumption? None [email or web address] Information not available 10/30/2014 Are you currently employed? 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 Occasional [email or web address] Information not available 10/30/2014 Mental Status None [...] Disorder N Colon Polyps N Heart Attack ([place]) N Diabetes N Cardiomyopathy N Blood Transfusions [...] SNOMED-CT Code Diagnosis ICD10 Code Diagnosis Note [id number] Cosme Gloria MD [facility] (ECOLOGY TEACHER) [address] [place] [address] [phone] 10/30/2014 09:49:37 10/30/2014 10:56:31 Gynecologic examination [id number] 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 [id number] [id number] [facility] [address] [place] [address] [phone] 12/10/2014 11:20:55 12/10/2014 13:01:08 Gynecologic examination 07667704 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 837863553 Streptococcus carrier 966742443 Endometrio sis of uterus 12780601 [id number] MD Liz Long (ECOLOGY TEACHER) [address] [place] [address] [phone] 12/20/2014 14:54:18 12/23/2014 09:31:47 Streptococcus carrier 885798359 Menopausal syndrome 656207601 Dermatophy tosis of the body 418276753 Candidiasis 11109689 [id number] Cosme Gloria MD [facility] (ECOLOGY TEACHER) [address] [place] [address] [phone] 11/04/2015 14:31:13 11/04/2015 17:25:17 Gynecologic examination 52565543 Z01.419 Irritable bowel syndrome 37271543 K58.9 Menopausal syndrome 1237 74555 N95.9 Colitis 34682719 K52.9 [id number] Natanael Valentino MD [facility] (ECOLOGY TEACHER) [address] [place] [address] [phone] 05/13/2016 13:52:53 05/14/2016 10:32:25 Candidiasis 39338157 B37.9 Chronic pe lvic pain of female 436050561 R10.2 Vaginitis 29786630 N76.0 [id number] MD Liz Rey (ECOLOGY TEACHER) [address] [place] [address] [phone] 06/03/2016 09:47:51 06/05/2016 11:46:20 Uterine leiomyoma 43487254 D25.9 Endometrium thickened 44 6150275 R93.8 [id number] Cosme Gloria MD [facility] (ECOLOGY TEACHER) [address] [place] [address] [phone] 06/10/2016 11:13:23 06/11/2016 17:50:59 Endometrium thickened 328789153 R93.8 Chronic pe lvic pain of female 870953658 R10.2 Uterine leiomyoma 138474 05 D25.9 Health Concerns Section Related Observation LastModified by Organization Detai ls LastModified Time None Recorded Concern Status LastModified by Organization Details LastModified Time None Recorded Advance Directives Directive N: Payers Encounter Date Sequence Insurance Name Policy Number Policy Mohmaud Covered Member ID Mohamud Member ID Guarantor Name 12/20/2014 1 [facility] Alana Olguin [id number] Alana Olguin 11/04/2015 1 [employer] [id number] Catrachito Olguin Jr [id number] Alana Olguin 05/13/2016 1 [employer] [id number] Catrachito Olguin Jr [id number] Alana Olguin 06/03/2016 1 [employer] [id number] Catrachito Olguin Jr [id number] Alana Olguin 06/10/2016 1 [employer] [id number] Catrachito Olguin Jr [id number] Alana Olguin Notes Date Note Type Note [...] Followed with yearly pap smears Cosme blum [facility] 11/04/2015 17:15:28 06/03/2016 text/html HERE FOR TEST RESULTS. She said she had an episode of post menopausal bleeding 2 years ago and endometrial biopsy was negative as per patient. Denies any bleeding since then Valerie Quiroz MD Attn: Accounting,[address] [place], [address], [facility] 06/03/2016 18:49:56 06/10/2016 text/html Presenting for consultation with Dr. Gloria, Re: endometrial thickening and pelvic pain. I am standing in for Dr. Gloria as he was called away for Emergency. Natanaeljohanny blum [facility] 06/11/2016 10:54:34 OBGyn Episode Ob Episode Information Episode Created Date Number of Fetuses Patient Bloodtype Patient rh Status Prepregnancy Weight lbs Domestic Partner Domestic Partner Phone Father Name Tobacco Packing Machine Operator Status 10/30/19 15 1 CLOSED Fetus Data First Name Last Name Admitted to NICU Weight (g) Sex Living Outcome Pediatric Complications Fetus ID Race Codes Race Delivery Type 3628.73 6 F Full Term [id number] Ole Calculation Initial Ole Date Initial Exam [...] Complications Tubal Sterilization Discharge Date Comments [facility]charge Information Feeding Method Contraceptive Method Maternal HG B and HCT Levels
== END 2025-02-06 09:47 | disposition home or self-care (01) ==
PROVIDERS: PCP Physician Assistant; Visit Provider Physician Assistant
DX: R94.31 Abnormal electrocardiogram [ECG] [EKG] (principal)
CPT/HCPCS: 78452; 93017; A9502; J2785

== ENCOUNTER 2025-02-08 02:18 | Day surgery (SDC) | payer OTHER, SELFPAY ==
[2025-01-16 10:15] VITALS: BP 141/81; PULSE 81; RESP 16; TEMP 36.3; O2SAT 99; BMI 28.3
--- NOTE | 2025-01-16 10:36 | PC.NURSE ---
Report to the Outpatient Waiting Room, entrance under the green pavilion located off [facility], at time ___0600am____ on date __02/08/25 . Planned Procedure Time: _0730am .? Time changes happen often and if your time is changed the preop area will call you the afternoon before. - You and your visitor will be asked to self-screen and do not enter if you have any COVID symptoms. Please call surgeon if you need to reschedule. - A mask is optional within the hospital at this time. Patients may have clear liquids (water, carbonated beverages, clear teas, apple juice) until 3 hours prior to surgery with a maximum of 20 ounces. - No food from midnight until time of surgery and no smoking, or chewing tobacco (or any form of nicotine). No chewing gum, candy or mints. (0430am) Take only the following medications with a SIP of water on the morning of surgery: ___None DO NOT STOP ANY OF YOUR OTHER PRESCRIPTION MEDICATIONS PRIOR TO SURGERY EXCEPT THE FOLLOWING Hold all vitamins and supplements for 3 days per anesthesiologist.Date to take last dose is 02/04/25 Medications to discontinue per physician ____None Date to take last dose____None Please no make-up, nail congolese, hairspray, perfume, deodorant, or body powder the day of surgery.? No jewelry (including any body piercings) or valuables the day of surgery, leave them at home.? Please take a shower or bath the night before, or the morning of, surgery with an antibacterial soap.? Wear comfortable, loose fitting clothing.? GET HIBICLEANSE Scrub, GET a Walker, Bring overnight bag /Cell phone tube pusher - Jewelry must be removed prior to entering the operating room.? Rings and piercings that are not removed may be cut off. - The hospital will not accept responsibility for valuables.? - Please leave all valuables, including medications, at home the day of surgery. If you are going home after surgery, a licensed courtesy driver must drive you home.? - NO public transportation without another adult if you receive anesthesia. - We recommend that an adult stay with you for 24 hours following discharge. - We also recommend that you do not drive, make important decision, drink alcoholic beverages, or take any drugs that were not prescribed by your health care provider for at least 24 hours after your discharge time. Follow any additional instructions given to you from your surgeon. Telephone instructions given to ___PatIent and asked if any additional questions and then verbalized understanding. Patient advised to call surgeon office or pre surgery nurse liaison [phone] if any additional questions.
--- NOTE | 2025-02-07 07:19 | P.HP_ITS ---
H&P: HPI History of Present Illness Date/Time: 02/07/25 07:19 Chief Complaint: Right hip DJD Narrative: 59-year-old female who presents today for a right anterior total hip arthroplasty. Patient has been having symptoms in the right hip for over a year. They have progressively worsened. Most the pain is in the groin and anterior lateral hip. Patient has difficulty putting her shoes and socks on due to pain. She has difficulty with walking. She is limited a little bit due to the pain as well. She has had intolerance to taking Aleve but has been taking Celebrex 100 mg daily without any side effects. She has been using a cane recently as well. At this point patient feels her symptoms are significant enough on a daily basis and it is affecting her daily lifestyle she would like to proceed with total hip arthroplasty on the right. She has moderately severe osteoarthritis in the. Also has severe patellofemoral osteoarthritis in the left knee and would like to have cortisone injection at the time surgery as well. She has had these in the past it has been over 3 months since her last injection. Review of Systems Review of Systems: All systems reviewed & are unremarkable except as noted in HPI and below PMFSH Past Medical History Medical History Cavovarus deformity of foot, acquired Arthritis of foot, degenerative Endometriosis Interstitial cystitis (chronic) without hematuria Diverticulitis Surgical History Surgical History H/O knee surgery S/P breast lumpectomy H/O laparoscopy Delivery by section History of cholecystectomy Laparoscopic cholecystectomy 2009 at [facility] Breast cancer Status post lumpectomy and axillary dissection with postoperative radiation therapy and chemotherapy. Family History Family History Father Hypertension Mother Diabetes mellitus Disorder of thyroid Sibling No problems noted. Social History Social History (Updated 01/30/25 @ 08:09 by Amee Hartman MD) Smoking status: Never smoker Alcohol intake: never Alcohol use details: only scant, Communion Substance use: never Substance use type: does not use Current Housing: Decline to Answer Concerned About Future Housing: Decline to Answer Difficulty Paying Gas/Electric Bills: Decline to Answer Difficulty Paying for Meds: Decline to Answer Currently Unemployed: Decline to Answer Education: Don't Know Difficulty w/ Childcare or Family Care: Decline to Answer Living arrangements: with family Additional living arrangements comments: and daughter Occupation/Education: unemployed Gender identity (if verbalized by the patient): Female Spiritual care concerns: No Meds Home Medications and Allergies Home Medications ?Medication ?Instructions ?Recorded ?Confirmed ?Type cholecalciferol (vitamin D3) 50 50 mcg PO DAILY 03/25/23 02/01/25 History mcg (2,000 unit) capsule (Vitamin D3) multivit with minerals-iron 18 1 tablet PO DAILY 03/25/23 02/01/25 History mg-folic ac 400 mcg-vit K 25 mcg tablet (Adults Multivitamin) omega 5-gix-hrp-fish oil 120 1 cap PO DAILY 03/25/23 02/01/25 History mg-180 mg-500 mg capsule (Fish Oil) Saccharomyces boulardii 250 mg 250 mg PO BID 09/09/23 02/01/25 History capsule (Daily Probiotic (S. boulardii)) bile swhma-ctlg-graj-phenolpth 1 tablet PO DAILY 09/09/23 02/01/25 History tablet Tribulis 1 g BYMOUTH DAILY 11/22/24 02/01/25 History magnesium-potassium 40 mg-40 mg 1 cap PO DAILY 11/22/24 02/01/25 History capsule mupirocin 2 % topical ointment 1 applic topical BID #22 grams 01/19/25 02/01/25 Rx Allergies Allergy/AdvReac Type Severity Reaction Status Date / Time codeine Allergy Intermediate ITCHING/IRENE Verified 01/30/25 07:44 H Exam Narrative: 59-year-old female she is 5 ft 9 195 lb BMI is 28. Right hip flexes to 90? causing her anterior lateral and posterior lateral pain as well as medial groin pain. Internal rotation lacks 15? shy of neutral which also causes her groin pain. External rotation 30. She has pain extending the hip in the supine position. She has normal abduction strength lateral position, no tenderness over the greater trochanter. She walks with a mild limp. She has no numbness or tingling in the right lower extremity. No edema in either lower extremity. 2+ dorsalis pedis pulse in the right foot. Resp: Auscultation: clear to auscultation bilaterally Cardio: Rate: regular rate Rhythm: regular rhythm Assessment and Plan Assessment and plan (1) Osteoarthritis of right hip: Qualifiers: Osteoarthritis type: primary Qualified Code(s): M16.11 - Unilateral primary osteoarthritis, right hip Code(s): M16.11 - Unilateral primary osteoarthritis, right hip Status: Acute Assessment and Plan: 59-year-old female who has moderately severe osteoarthritis the right hip with significant symptoms on a daily basis. She has limited with daily activities due to the arthritic hip. She would like to proceed with total hip arthroplasty at this point. Surgical procedure as well as the risks and complications were discussed in detail and all questions were answered and we will proceed. Patient will continue her Celebrex to the time surgery. Hemoglobin was 13.6 platelets are 313. Chem panel is all within normal limits creatinine 0.60. Nasal swab did grow oxacillin sensitive Staph aureus she has been D colonizing. Patient did have abnormality on her EKG. She was seen by cardiology and underwent stress test. There is no abnormality seen on the stress test ejection fraction is 78%. She has been cleared from cardiology.
[2025-02-08] VITALS (18 sets, daily range): BP systolic 104–172; BP diastolic 55–91; PULSE 70–102; RESP 11–18; TEMP 35.5–37; O2SAT 94–100; BMI 28.0
--- NOTE | ~2025-02-08 | XR_ITS ---
EXAMINATION: XR surgery orthopedic DATE: 02/08/2025 11:28 INDICATION: Anterior approach right total hip arthroplasty TECHNIQUE: Single frontal fluoroscopic image of the right hip was obtained during procedure performed by Dr. Hart. Radiologist was not present for the procedure or imaging. Fluoroscopy exposure time w as 0.9 minutes. Total DAP was 0.314 mGycm^2 . COMPARISON: None. FINDINGS: Intraoperative image during a right total hip arthroplasty demonstrate placement of a noncemented rig ht total hip arthroplasty which appears in near anatomic alignment on the single image provided. The acetabular component is affixed with at least a single screw. Portions of the pelvis are excluded fro m the [id number]. No fractures in the visualized bones. Expected small amount of lucent soft tissu e gas at the operative bed. IMPRESSION: 1. Expected appearance during right total hip arthroplasty. Reviewed, dictated and finalized at location A.
--- NOTE | ~2025-02-08 | XR_ITS ---
Right Hip Technique: Portable AP view Clinical History: Status post hip arthroplasty Findings: Patient is status post right hip arthroplasty. Orthopedic hardware alignment appears anatom ic. No hardware complication is evident. Subcutaneous emphysema and swelling is likely postoperative in nature. Skin luis alfredo are present. No acute osseous fracture is seen. Impression: Status post total right hip arthroplasty, without evidence of hardware complication. Reviewed, dictated and finalized at location . Impression: Status post total right hip arthroplasty, without evidence of hardware complica tion.
--- OUTSIDE RECORDS SUMMARY | 2025-02-08 02:20 | XMS_ITS | Data Portability ---
Author Organization [facility] Address [address] [place] [address] Care Team Providers Care Center Machine Set Up Operator Name Role Phone NEAL HOLLOWAY Primary Care Provider Assessment No assessment recorded. Plan of Treatment Reminders Order Date Submit Date Provider Last Modified By Organization Details Last Modified Time Details Appointments None recorded. Lab TSH + free T4, serum 2023 024 WILLACOOCHEE Misa, [address], [place], [address], 4 05:11:33 CBC w/ auto diff 2023 024 [facility]E [facility], [address], [place], [address], 4 05:11:35 CMP, serum or plasma 2023 024 [facility]E [facility], [address], [place], [address], 4 05:11:34 vitamin B12 + folate, serum or blood 2023 024 WILLACOOCHEE Misa, [address], [place], [address], 4 05:11:34 magnesium, serum or plasma 2023 024 [facility], [address], [place], [address], 4 05:11:34 lipid panel, serum 2023 024 WILLACOOCHEE [facility], [address], [place], [address], 4 05:11:35 vitamin D, 25-hydroxy, total, serum 2023 024 WILLACOOCHEE [facility], [address], [place], [address], 4 05:11:35 HbA1c (hemoglobin A1c), blood 2023 024 [facility]OCHEE [facility], [address], [place], [address], 4 05:11:34 Referral orthopedic surgeon referral 2024 025 [email or web address] Jersey Garay, [address], [address], [place], [address], 5 12:53:01 orthopedic surgeon referral 2023 024 ANA LILIA Lomax MD, [address], [address], [place], [address], 4 11:53:32 Procedures None recorded. Surgeries None recorded. Imaging None recorded. Medication Orders None recorded. Patient TargetsNo targets recorded. Patient Instructions Encounter Date Encounter Id Patient Instructions Last Modified By Organization Details Last Modified Time 09/25/2024 [id number] A healthy lifestyle: care instructions [email or web address] Not [...] 100-19 9 Not Available [facility] ([facility]) [address] [place], [address], 02/05/2024 11:13:27 02/04/20 24 02/05/2024 LIPID PANEL W/ CHOL/ HDL RATIO triglyceride s 99 mg/dL 0-149 Not Available [facility] ([facility]) [address] [place], [address], 02/05/2024 11:13:27 02/04/20 24 02/05/2024 LIPID PANEL W/ CHOL/ HDL RATIO HDL cholesterol 44 mg/dL >39 Not Available [facility] ([facility]) [address] [place], [address], 02/05/2024 11:13:27 02/04/20 24 02/05/2024 LIPID PANEL W/ CHOL/ HDL RATIO VLDL cholesterol alvaro 18 mg/dL 5-40 Not Available [facility] ([facility]) [address] [place], [address], 02/05/2024 11:13:27 02/04/20 24 02/05/2024 LIPID PANEL W/ CHOL/ HDL RATIO LDL chol calc ([facility]) 114 mg/dL 0-99 above high normal Not Available [facility] ([facility]) [address] [place], [address], 02/05/2024 11:13:27 02/04/20 24 02/05/2024 LIPID PANEL W/ CHOL/ HDL RATIO T. chol/HDL ratio 4.0 ratio 0.0-4. 4 T. Chol/ HDL Ratio Men Women 1/2 Avg.R isk 3.4 3.3 Avg.R isk 5.0 4.4 2X Avg.R isk 9.6 7.1 3X Avg.R isk 23.4 11.0 Not Available [facility] ([facility]) [address] [place], [address], 02/05/2024 11:13:27 02/04/20 24 02/05/2024 TSH+F REE T4 TSH 1.230 uIU/m L 0.450- 4.500 Not Available [facility] ([facility]) [address] [place] [place], [address], 02/05/2024 11:13:28 02/04/20 24 02/05/2024 TSH+F REE T4 T4,free(dire ct) 1.37 NG/dL 0.82-1 .77 Not Available [facility] ([facility]) [address] [place] [place], [address], 02/05/2024 11:13:28 02/04/20 24 02/05/2024 COMP. METAB OLIC PANEL (14) glucose 96 mg/dL 70-99 Not Available [facility] ([facility]) [address] [place], [address], 02/05/2024 11:13:28 02/04/20 24 02/05/2024 COMP. METAB OLIC PANEL (14) BUN 13 mg/dL 6-24 Not Available [facility] ([facility]) [address] [place], [address], 02/05/2024 11:13:28 02/04/20 24 02/05/2024 COMP. METAB OLIC PANEL (14) creatinine 0.73 mg/dL 0.57-1 .00 Not Available [facility] ([facility]) [address] [place] [place], [address], 02/05/2024 11:13:28 02/04/20 24 02/05/2024 COMP. METAB OLIC PANEL (14) eGFR 95 mL/mi n/1.7 3 >59 Not Available [facility] ([facility]) [address] [place], [address], 02/05/2024 11:13:28 02/04/20 24 02/05/2024 COMP. METAB OLIC PANEL (14) BUN/creatini ne ratio 18 9-23 Not Available [facility] ([facility]) [address] [place], [address], 02/05/2024 11:13:28 02/04/20 24 02/05/2024 COMP. METAB OLIC PANEL (14) sodium 137 mmol/ L 134-14 4 Not Available [facility] ([facility]) [address] [place], [address], 02/05/2024 11:13:28 02/04/20 24 02/05/2024 COMP. METAB OLIC PANEL (14) potassium 4.2 mmol/ L 3.5-5. 2 Not Available [facility] ([facility]) [address] [facility], [place], [address], 02/05/2024 11:13:28 02/04/20 24 02/05/2024 COMP. METAB OLIC PANEL (14) chloride 99 mmol/ L 96-106 Not Available [facility] ([facility]) [address] [place], [address], 02/05/2024 11:13:28 02/04/20 24 02/05/2024 COMP. METAB OLIC PANEL (14) carbon dioxide, total 24 mmol/ L 20-29 Not Available [facility] ([facility]) [address] [place], [address], 02/05/2024 11:13:28 02/04/20 24 02/05/2024 COMP. METAB OLIC PANEL (14) calcium 9.9 mg/dL 8.7-10 .2 Not Available [facility] ([facility]) [address] [place], [address], 02/05/2024 11:13:28 02/04/20 24 02/05/2024 COMP. METAB OLIC PANEL (14) protein, total 7.0 g/dL 6.0-8. 5 Not Available [facility] ([facility]) [address] [place] [place], [address], 02/05/2024 11:13:28 02/04/20 24 02/05/2024 COMP. METAB OLIC PANEL (14) albumin 4.4 g/dL 3.8-4. 9 Not Available [facility] ([facility]) [address] [place], [address], 02/05/2024 11:13:28 02/04/20 24 02/05/2024 COMP. METAB OLIC PANEL (14) globulin, total 2.6 g/dL 1.5-4. 5 Not Available [facility] ([facility]) [address] [place], [address], 02/05/2024 11:13:28 02/04/20 24 02/05/2024 COMP. METAB OLIC PANEL (14) A/G ratio 1.7 1.2-2. 2 Not Available [facility] ([facility]) [address] [place], [address], 02/05/2024 11:13:28 02/04/20 24 02/05/2024 COMP. METAB OLIC PANEL (14) bilirubin, total 0.6 mg/dL 0.0-1. 2 Not Available [facility] ([facility]) [address] [place], [address], 02/05/2024 11:13:28 02/04/20 24 02/05/2024 COMP. METAB OLIC PANEL (14) alkaline phosphatase 80 IU/L 44-121 Not Available [facility] ([facility]) [address] [place], [address], 02/05/2024 11:13:28 02/04/20 24 02/05/2024 COMP. METAB OLIC PANEL (14) AST (SGOT) 18 IU/L 0-40 Not Available [facility] ([facility]) [address] [facility], [address], 02/05/2024 11:13:28 02/04/20 24 02/05/2024 COMP. METAB OLIC PANEL (14) ALT (SGPT) 17 IU/L 0-32 Not Available [facility] ([facility]) [address] [place], [address], 02/05/2024 11:13:28 02/04/20 24 02/05/2024 VITAM IN B12 AND FOLAT E vitamin B12 870 pg/mL 232-12 45 Not Available [facility] ([facility]) [address] [place] [place], [address], 02/05/2024 11:13:28 02/04/20 24 02/05/2024 VITAM IN B12 AND FOLAT E folate (folic acid), serum >20.0 NG/mL >3.0 A serum folat e yen ntrat ion of less than 3.1 ng/mL is consi dered to repre sent clini alvaro defic iency . Not Available [facility] ([facility]) [address] [facility], [place], [address], 02/05/2024 11:13:28 02/04/2002/05/2024 HEMOG LOBIN A1C hemoglobin A1C 5.6 % 4.8-5. 6 Predi abete s: 5.7 - 6.4 Diabe aleja: >6.4 Glyce jordan contr ol for adult s with diabe aleja: <7.0 Not Available [facility] ([facility]) [address] [place], [address], 02/05/2024 11:13:29 02/04/2002/05/2024 MAGNE SIUM magnesium 1.9 mg/dL 1.6-2. 3 Not Available [facility] ([facility]) [address] [place], [address], 02/05/2024 11:13:29 02/04/2002/05/2024 CBC WITH DIFFE RENTI AL/PL ATELE T WBC 4.2 x10e3 /uL 3.4-10 .8 Not Available [facility] ([facility]) [address] [place], [address], 02/05/2024 11:13:29 02/04/20 24 02/05/2024 CBC WITH DIFFE RENTI AL/PL ATELE T RBC 4.41 x10e6 /uL 3.77-5 .28 Not Available [facility] ([facility]) [address] [place], [address], 02/05/2024 11:13:29 02/04/2002/05/2024 CBC WITH DIFFE RENTI AL/PL ATELE T hemoglobin 12.9 g/dL 11.1-1 5.9 Not Available [facility] ([facility]) [address] [place], [address], 02/05/2024 11:13:29 02/04/20 24 02/05/2024 CBC WITH DIFFE RENTI AL/PL ATELE T hematocrit 40.2 % 34.0-4 6.6 Not Available [facility] ([facility]) [address] [place], [address], 02/05/2024 11:13:29 02/04/2002/05/2024 CBC WITH DIFFE RENTI AL/PL ATELE T MCV 91 fL 79-97 Not Available [facility] ([facility]) [address] [place], [address], 02/05/2024 11:13:29 02/04/2002/05/2024 CBC WITH DIFFE RENTI AL/PL ATELE T MCH 29.3 pg 26.6-3 3.0 Not Available [facility] ([facility]) [address] [place], [address], 02/05/2024 11:13:29 02/04/2002/05/2024 CBC WITH DIFFE RENTI AL/PL ATELE T MCHC 32.1 g/dL 31.5-3 5.7 Not Available [facility] ([facility]) [address] [facility], [place], [address], 02/05/2024 11:13:29 02/04/20 24 02/05/2024 CBC WITH DIFFE RENTI AL/PL ATELE T RDW 12.1 % 11.7-1 5.4 Not Available [facility] ([facility]) [address] [facility], [place], [address], 02/05/2024 11:13:29 02/04/20 24 02/05/2024 CBC WITH DIFFE RENTI AL/PL ATELE T platelets 326 x10e3 /uL 150-45 0 Not Available [facility] ([facility]) [address] [facility], [place], [address], 02/05/2024 11:13:29 02/04/20 24 02/05/2024 CBC WITH DIFFE RENTI AL/PL ATELE T neutrophils 57 % notest ab. Not Available [facility] ([facility]) [address] [facility], [place], [address], 02/05/2024 11:13:29 02/04/20 24 02/05/2024 CBC WITH DIFFE RENTI AL/PL ATELE T lymphs 29 % notest ab. Not Available [facility] ([facility]) [address] [facility], [place], [address], 02/05/2024 11:13:29 02/04/20 24 02/05/2024 CBC WITH DIFFE RENTI AL/PL ATELE T monocytes 10 % notest ab. Not Available [facility] ([facility]) [address] [facility], [place], [address], 02/05/2024 11:13:29 02/04/20 24 02/05/2024 CBC WITH DIFFE RENTI AL/PL ATELE T eos 3 % notest ab. Not Available [facility] ([facility]) [address] [facility], [place], [address], 02/05/2024 11:13:29 02/04/20 24 02/05/2024 CBC WITH DIFFE RENTI AL/PL ATELE T basos 1 % notest ab. Not Available [facility] ([facility]) [address] [facility], [place], [address], 02/05/2024 11:13:29 02/04/20 24 02/05/2024 CBC WITH DIFFE RENTI AL/PL ATELE T neutrophils (absolute) 2.4 x10e3 /uL 1.4-7. 0 Not Available [facility] ([facility]) [address] [facility], [place], [address], 02/05/2024 11:13:29 02/04/20 24 02/05/2024 CBC WITH DIFFE RENTI AL/PL ATELE T lymphs (absolute) 1.2 x10e3 /uL 0.7-3. 1 Not Available [facility] ([facility]) [address] [facility], [place], [address], 02/05/2024 11:13:29 02/04/20 24 02/05/2024 CBC WITH DIFFE RENTI AL/PL ATELE T monocytes(ab solute) 0.4 x10e3 /uL 0.1-0. 9 Not Available [facility] ([facility]) [address] [place], [address], 02/05/2024 11:13:29 02/04/20 24 02/05/2024 CBC WITH DIFFE RENTI AL/PL ATELE T eos (absolute) 0.1 x10e3 /uL 0.0-0. 4 Not Available [facility] ([facility]) [address] [facility], [place], [address], 02/05/2024 11:13:29 02/04/20 24 02/05/2024 CBC WITH DIFFE RENTI AL/PL ATELE T baso (absolute) 0.0 x10e3 /uL 0.0-0. 2 Not Available [facility] ([facility]) [address] [facility], [place], [address], 02/05/2024 11:13:29 02/04/20 24 02/05/2024 CBC WITH DIFFE RENTI AL/PL ATELE T immature granulocytes 0 % notest ab. Not Available [facility] ([facility]) [address] [facility], [place], [address], 02/05/2024 11:13:29 02/04/2002/05/2024 CBC WITH DIFFE RENTI AL/PL ATELE T immature grans (abs) 0.0 x10e3 /uL 0.0-0. 1 Not Available [facility] ([facility]) [address] [place], [address], 02/05/2024 11:13:29 02/04/20 24 02/05/2024 VITAM IN [...] Rosa triplett [place]: The Natio nal [facility] [facility] Press . 2. Abe whelan MF, Binkl ey [place], Phuong off-F errar i [place]ENT, et al. Evalu ation , treat ment, and preve ntion of vitam in D defic iency : an Endoc rine Socie ty clini alvaro pract ice guide line. JCEM. 2010; 96(7) :1911 -30. Not Available [facility] ([facility]) [address], [place], [address], 02/05/2024 11:13:30 07/20/20 24 07/20/2024 pap, IG + HR HPV Pap negati ve Not Available Not Available 17:25:24 04/03/20 24 04/03/2024 CT, abdom en + pelvi s, w/ contr ast No observ ation record ed. [address] [facility], [place], [address], 04/05/2024 23:03:03 09/14/19 25 09/12/2024 CT, abdom en + pelvi s, w/ contr ast No observ ation record ed. [address], [place], [address], 09/14/2024 17:38:23 10/26/19 25 10/26/2024 XR, knee No observ ation record ed. [address] [facility], [place], [address], 10/27/2024 13:57:16 01/30/20 25 01/16/2025 elect saeed rodriguez am No observ ation record ed. [address] [facility], [place], [address], 01/30/2025 15:19:57 01/31/20 25 01/30/2025 XR, chest No observ ation record ed. [address], [place], [address], 01/30/2025 15:18:21 01/31/20 25 01/30/2025 CT, chest + abdom en + pelvi s, w/ contr ast No observ ation record ed. [address], [place], [address], 01/31/2025 14:00:22 02/07/20 25 02/06/2025 jarrett can cardi olite stres s test (PROC ) No observ ation record ed. [facility] [address], [place], [address], 02/06/2025 17:48:47 Result Notes None recorded. 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 Active 2023 Portia Dodge [place] [facility] 4 09:57:25 Body mass index 25-29 - overweight 732879360 Active 2024 Jose Nava [place] null, [place] [facility] 5 12:28:58 Overweight 225453039 Active 2024 TYRA Sol Attn: Kirk sterling,[address] [place], [address], [place] [facility] 5 21:22:48 Nasal congestion 67339061 Active 2024 TYRA Sol Attn: Kirk sterling,[address] [place], [address], [place] - [facility] 5 12:48:31 Osteoarthri tis of right hip joint 6996364358104 07 Active 2024 TYRA Sol Attn: Kirk sterling,[address] [place], [address], [place] - [facility] 5 12:48:32 Overweight in adulthood with body mass index of 25 or more but less than 30 320626479 Active 2024 TYRA Sol Attn: Kirk sterling,[address] [facility], [place], [address], [facility] - [facility] 5 12:48:51 Problem Notes None recorded. Procedures Surgical History Date Name Laterality Status Provider Name and Address Organization Details Recorded Time 04/05/20 colonoscopy completed Portia Dodge [place] - [facility] 12/20/2023 10:03:42 09/13/19 10 cholecystectomy completed Portia Dodge [place] [facility] 12/20/2023 10:00:26 09/13/19 08 section completed Portia Dodge [place] [facility] 12/20/2023 10:00:36 09/13/19 Breast Surgery completed Portia Dodge [place] - [facility] 12/20/2023 10:00:55 Imaging Results None recorded. Procedure Notes None recorded. Medical Equipment None Reported. Allergies Allergen ID Allergen Name Allergen Category Reaction Reaction Severity Criticality Documentation Date Start Date Code Code System Note Provider Name and Address Organization Details Recorded Time 16910319 codeine medicatio n rash Not available Not available 12/20/2023 2670 RxNorm Portia Dodge [facility], [place] - [facility] 4 09:56:40 Medications Name Sig Start Date [...] No t Available Vitals Date Recorded Systolic blood pressure Diastolic blood pressure Provider Name and Address Organization Details Last Updated DateTime 09/25/2024 128 mm[Hg] 82 mm[Hg] TYRA Sol Attn: Accounting,[address] [facility], [place], [address], [place] - [facility] 09/25/2024 12:52:24 Date Recorded Body height Body mass index (BMI) Body weight Respiratory rate Oxygen saturation Oxygen saturation in Arterial blood by Pulse oximetry Heart rate Systolic blood pressure Diastolic blood pressure Provider Name and Address Organization Details Last Updated DateTime 5 177.8 cm 26.8 kg/m2 46802.7 7 g 20 /min 98 % 98 % 87 /min 130 mm[Hg] 82 mm[Hg] Jose Nava MA [facility] 5 12:42:56 Date Recorded Respiratory rate Systolic blood pressure Diastolic blood pressure Provider Name and Address Organization Details Last Updated DateTime 01/12/2025 16 /min 140 mm[Hg] 80 mm[Hg] TYRA Sol Attn: Accounting, [address] [place], [address], [facility] 01/12/2025 10:10:08 Date Recorded Body height Body mass index (BMI) Body weight Heart rate Oxygen saturation Oxygen saturation in Arterial blood by Pulse oximetry Systolic blood pressure Diastolic blood pressure Provider Name and Address Organization Details Last Updated DateTime 5 177.8 cm 27.5 kg/m2 20357.6 6 g 93 /min 98 % 98 % 128 mm[Hg] 66 mm[Hg] Dagoberto Ornelas MA [facility] 5 09:59:56 Date Recorded Respiratory rate Body height Body mass index (BMI) Body weight Oxygen saturation Oxygen saturation in Arterial blood by Pulse oximetry Heart rate Systolic blood pressure Diastolic blood pressure Systolic blood pressure Diastolic blood pressure Provider Name and Address Organization Details Last Updated DateTime 4 20 /min 177.8 cm 26.5 kg/m2 40671.2 3 g 97 % 97 % 78 /min 142 mm[Hg] 88 mm[Hg] 132 mm[Hg] 78 mm[Hg] Jose Nava MA [facility] 4 09:50:46 Social History Question Answer Notes LastModified by Organizat ion Details LastModified Time Tobacco Smoking Status Never Smoker Portia blum, [facility] 12/20/2023 09:59:00 Are You Blind Or Do You Have Difficulty Seeing? No Glasses Information n ot available 01/28/2024 What Is Your Level Of Caffeine Consumption? None [email or web address] Information not available 12/20/2023 In The 14 Days Before Symptom Onset, Have You Had Close Contact With A Laboratory-confirm ed COVID-19 While That Case Was Ill? No [email or web address] Information n ot available 12/20/2023 In The 14 Days Before Symptom Onset, Have You Had Close Contact With A Person Who Is Under Investigation For COVID-19 While That Person Was Ill? No [email or web address] Information not available 12/20/2023 Have You Been To An Area Known To Be High Risk For COVID-19? No [email or web address] Information not available 12/20/2023 Are You Deaf Or Do You Have Serious Difficulty Hearing? No Information not available 01/28/2024 What Type Of Diet Are You Following? REGULAR [email or web address] Information n ot available 12/20/2023 Are There Any Guns Present In Your Home? No Information not available 09/25/2024 What Was The Date Of Your Most Recent Tobacco Screening? 09/25/2024 Information not available 09/25/2024 What Is Your Relationship Status? [email or web address] Information not available 12/20/2023 Do You Use Your Seat Belt Or Car Seat Routinely? Yes [email or web address] Information not available 12/20/2023 Do You Have Smoke And Carbon Monoxide Detectors In Your Home? Yes [email or web address] Information not available 12/20/2023 Do You Use Sunscreen Routinely? Yes [email or web address] Information not available 12/20/2023 Has Tobacco Cessation Counseling Been Provided? Yes Information not available 01/28/2024 On What Date Was Tobacco Cessation Counseling Provided? 09/25/2024 Information not available 09/25/2024 Sex: Female Functional Status Question Answer Note LastModified by Organizat ion Details LastModified Time Do you use any illicit or recreational drugs? No Information not available 12/20/2023 Do you or have you ever used any other forms of tobacco or nicotine? No [email or web address] Information not available 12/20/2023 What is your level of alcohol consumption? None [email or web address] Information not available 12/20/2023 Are you currently employed? No Information not available 12/20/2023 Are you able to care for yourself? Yes [email or web address] Information not available 12/20/2023 What is your exercise level? None Information not available 12/20/2023 Mental Status None recorded. Family History Relationship Description Onset Age of this Age Resolved Age Notes LastModified by Organization Details LastModified Time Father Diabetes mellitus [email or web address] Not available 12/19 09:57:45 Father Hypertensive disorder [email or web address] Not available 2023 11:48:07 Brother Malignant neoplasm of brain 58 [email or web address] Not available 12/19 09:58:02 Brother Hypertensive disorder [email or web address] Not available 2023 11:48:13 Mother Malignant tumor of breast [email or web address] Not available 2023 11:48:00 Mother Kidney disease [email or web address] Not available 2023 11:48:33 Notes:DAD PASSED IN DECEMBER 31 Medical History Condition Response Coronary Artery Disease N Other N Atrial Fibrillation N High Blood Pressure N Thyroid Problems N Kidney or Bladder Problems Y Depression N COPD N Blood Clots N GI Problems Y Skin Problems N Anemia N Heart Attack (IA) N Diabetes N Anxiety Disorder N Muscle, Joint, or Bone Problems N Seizures/Epilepsy N Acid Reflux (GERD) N Cancer N Stroke N Allergies N Asthma N High Cholesterol N Hepatitis N Liver Disease N Headaches N Osteoporosis N Heart Failure N Gynecological History Statement/Question Response Menses Monthly N Current Control Method None Obstetrics History GPAL:G 1 P 1 0 0 1 Type Value Full Term 1 Induced 0 Premature 0 Living 1 Total 1 Past Encounters Encounter ID Performer Location Encounter Start Date Encounter Closed Date Diagnosis/Indication Diagnosis SNOMED-CT Code Diagnosis ICD10 Code Diagnosis Note [id number] Jonah Sherman MD [address] [facility] [address] [place] [address] 01/28/2024 09:24:58 01/28/2024 11:10:07 Pain of right hip joint 0030257073 88838 M25.551 as above. Osteoarthritis of hip 23 3446460 M16.9 refer to Orthopedic s for evaluation and options for her known OA of right hip Cholesterol screening 27 1642686 Z13.220 fasting lipids due Diabetes m ellitus screening 492232462 Z13.1 a1c screening due Thyroid di sorder screening 957162328 Z13.29 TFT panel due Long-term drug therapy 454740556 Z79.899 routine cmp, cbc, b12, folate and magnesium labs ordered. Vitamin D deficiency 347 85197 E55.9 pt requests Vit D lab order [id number] Jonah Sherman MD [facility] [place] [address] [place] [address] 09/25/2024 12:16:48 09/25/2024 13:06:10 Body mass index 25-29 - overweight 902021981 Z68.26 BMI is 26.8 Overweight 080082359 E66 .3 Diverticul itis of sigmoid colon 918577313 K57.32 Patient has improved well on Cipro and Flagyl combinatio n, advance diet slowly Pain of knee region 1003 158255 M25.569 pain in left medial knee after twisting wrong recently. Refer to orthopedic s [id number] Jonah Sherman MD [facility] [address] [place] [address] 01/12/2025 09:28:42 01/12/2025 10:39:00 Preprocedural examination done 5861337487 54548 Z01.818 Preop exam completed. she will be getting preop labs and ekg next week for preop Osteoarthr itis of right hip joint 4975977205 14008 M16.11 planned on february 08 for JOSÉ MIGUEL. Nasal congestion 6549980 0 R09.81 Over-the-c ounter nasal steroid spray suggested and may also take Sudafed PE as needed Overweight in adulthood with body mass index of 25 or more but less than 30 709713764 E66.3 Z68.27 BMI 27.5 Health Concerns Section Related Observation LastModified by Organization Detai ls LastModified Time None Recorded Concern Status LastModified by Organization Details LastModified Time None Recorded Advance Directives Directive None Recorded Payers Encounter Date Sequence Insurance Name Policy Number Policy Mohamud Covered Member ID Mohamud Member ID Guarantor Name 01/28/2024 1 [facility] [id number] Catrachito Olguin [id number] Alana Olguin 09/25/2024 1 [facility] [id number] Catrachito Olguin [id number] Alana Olguin 01/12/2025 1 [facility] ( - PPO) Catrachito Olguin [id number] Alana Olguin Notes Date Note Type Note Provider Name and Address Organization Details Recorded Time 01/28/2024 text/html Musculoskeletal PainReported bypatient.Location:rig hip Quality:sharp Severity:pain level without meds /10;worsening [...] that leg. TYRA Sol Attn: Accounting,[address] [place], [address], [facility] 02/13/2024 20:45:09 09/25/2024 text/html Patient is [...] referral placed TYRA Sol Attn: Accounting,[address] [place], [address], [facility] 10/12/2024 21:23:03 01/12/2025 text/html Musculoskeletal PainReported bypatient.Location:rig hip Quality:sharp Severity:pain level without meds /10;worsening Duration:present for 6-12 months Timing:constant Context:prior back problems Alleviating factors:rest Aggravating factors:movement/posit ioning; bending over; twisting Associated Symptoms:no fever; no weak limbs; no tingling; no numbness of the legs/feet; no incontinenceNotes:plan s for hip replacement pt also reports some nasal congestion that is bothering her. TYRA Sol Attn: Accounting,[address] [place], [address], [place] [facility] 02/04/2025 12:54:12 OBGyn Episode No OBEpisode recorded.
--- OUTSIDE RECORDS SUMMARY | 2025-02-08 02:20 | XMS_ITS | Referral Summary ---
Author Organization [facility] Address [address] [place] [address] Care Team Providers Care Wafer Fabricator Name Role Phone Loni Duong Primary Care Pr ovider Allergies Active Allergy Reactions Criticality Noted Date Comments Codeine Itching Low Medications ui-aalqnxn-qzo- iron fm-FA-vitK 18 mg iron-600 mcg-80 mcg [...] (05/23/2020): Added automatically from request for surgery [id number] Encounter for follow-up surveillance of breast c [...] on file Legal Sex Female 8:16 PM SUPERVISOR BENZENE REFINING Gender Identity Not on file Sexual Orientation [...] 8:05 AM CDT Height 177.8 cm (5' 10) 06/13/2020 8:05 AM CDT Body Mass Index 25.11 06/13/2020 8:05 AM CDT Plan of Treatment Not on file Procedures Procedure Name Priority Date/Time Associated Diagnosis Comments DIAGNOSTIC MAMMOGRAM BILATERAL W CHETAN Schedule Routine, Read Routine (OP Routine) 10/05/2023 9:39 AM SUPERVISOR BENZENE REFINING Unspecified lump in axillary tail of the right breast COLONOSCOPY 06/13/2020 9:01 AM CDT from Last 3 Months or Most Recently Relevant to Health Maintenance Results * Diagnostic Mammogram Bilateral W Chetan (10/05/2023 9:39 AM SUPERVISOR BENZENE REFINING) Anatomical Region Laterality Modality Breast Bilateral Mammography 10/05/2023 10:1 3 AM SUPERVISOR BENZENE REFINING Impressions 10/05/2023 10:37 AM SUPERVISOR BENZENE REFINING 1. Stable postsurgical changes of bilateral breast [...] Chantel Leo M.D. Narrative 10/05/2023 10:37 AM SUPERVISOR BENZENE REFINING EXAMINATION: BILATERAL DIGITAL DIAGNOSTIC MAMMOGRAM INCLUDING CAD [...] Female Attending MD: Kal Ha M.D. Room: [facility] ENDOSCOPY ROOM 04 Note Status: Finalized [...] Thescope was passed under direct vision. The [id number] introduced through the anus and advanced to the cecum, identified by appendiceal orifice and ileocecal valve.The colonoscopy was performed without difficulty. Thepatient tolerated the procedure well. The quality of the bowel preparation was evaluated using the BBPS ([place] Bowel Preparation Scale) with scores of: Right [...] Payer ID:[id number] (NAIC) Group ID:Not on file Type:[employer] Address: [address] [employer] [facility] [place] [address] Advance Directives For more information, please contact: [phone] * Full Code (Latest Code Status on File) Date Activated Date Inactivated Comments 06/13/2020 8:02 AM 06/13/2020 1:57 PM * Full Code Date Activated Date Inactivated Comments 09/01/2019 8:33 AM 09/01/2019 3:28 PM Care Teams Wafer Fabricator Relationship Specialty Start Date End Date Loni Duong PA PCP - General 11/19/16
--- OUTSIDE RECORDS SUMMARY | 2025-02-08 02:20 | XMS_ITS | Clinical Summary ---
Author Organization [facility] Address [address] [place] [address] Care Team Providers Care Junk Dealer Name Role Phone Loni Duong Primary Care Pr ovider Allergies Active Allergy Reactions Criticality Noted Date Comments Codeine Itching Low Medications uj-uaonlto-qny- iron fm-FA-vitK 18 mg iron-600 mcg-80 mcg [...] (05/23/2020): Added automatically from request for surgery [id number] Encounter for follow-up surveillance of breast c ancer 04/23/2020 History of bilateral breast cancer 04/23/2020 Generalized abdominal pain 10/12/2019 Diverticulitis of large inte brian without perforation or abscess without bleeding 10/12/2019 Gastric nodule 10/12/2019 Epigastric pain 07/23/2019 Irritable bowel syndrome 11/01/2018 Surgical History Surgery Date Site/Laterality Comments [place] DEL[place] CHOLECYSTECTOMY [place] DILATION & CURETTAGE DX&/THER NONOBSTETRIC MASTECTOMY, PARTIAL [...] on file Legal Sex Female 8:16 PM SNACK STEWARD Gender Identity Not on file Sexual Orientation [...] Read Routine (OP Routine) 10/05/2023 9:39 AM SNACK STEWARD Unspecified lump in axillary tail of the right breast COLONOSCOPY 06/13/2020 9:01 AM CDT from Last 3 Months or Most Recently Relevant to Health Maintenance Results * Diagnostic Mammogram Bilateral W Chetan (10/05/2023 9:39 AM SNACK STEWARD) Anatomical Region Laterality Modality Breast Bilateral Mammography 10/05/2023 10:1 3 AM SNACK STEWARD Impressions 10/05/2023 10:37 AM SNACK STEWARD 1. Stable postsurgical changes of bilateral breast [...] Chantel Leo M.D. Narrative 10/05/2023 10:37 AM SNACK STEWARD EXAMINATION: BILATERAL DIGITAL DIAGNOSTIC MAMMOGRAM INCLUDING CAD [...] cystic or solid mass. Procedure Note Chantel eLo MD - 10/05/2023 EXAMINATION: BILATERAL DIGITAL DIAGNOSTIC [...] Female Attending MD: Kal Ha M.D. Room: [facility] ENDOSCOPY ROOM 04 Note Status: Finalized [...] Thescope was passed under direct vision. The [id number] introduced through the anus and advanced to the cecum, identified by appendiceal orifice and ileocecal valve.The colonoscopy was performed without difficulty. Thepatient tolerated the procedure well. The quality of the bowel preparation was evaluated using the BBPS ([place] Bowel Preparation Scale) with scores of: Right [...] JR Date of :1965 Payer ID:[id number] (NAIC) Type:[employer] Address: [address] ACCESS OOS Member Subscriber Plan / Payer ( fective 2021-Present) Name:Alana Pal Relation to Subscriber:Self Name:Alana Pal Payer ID:[id number] (NAIC) Group ID:Not on file Type:[employer] Address: [address] [employer] [place] [id number] [employer] Advance Directives For more information, please contact: [phone] * Full Code (Latest Code Status on File) Date Activated Date Inactivated Comments 06/13/2020 8:02 AM 06/13/2020 1:57 PM * Full Code Date Activated Date Inactivated Comments 09/01/2019 8:33 AM 09/01/2019 3:28 PM Care Teams Junk Dealer Relationship Specialty Start Date End Date Loni Duong PA PCP - General 11/19/16
--- OUTSIDE RECORDS SUMMARY | 2025-02-08 02:21 | XMS_ITS | Data Portability ---
Author Organization [place] [facility] [employer], Main Office Address [address] [place] [address] Assessment Encounter Date Assessment Date Assessment LastModified [...] LILIA [facility], [address], [place], [address], 3 10:46:09 lipid panel, serum 2022 023 [email or web address] Aritacoeric, [address], [place], [address], 3 11:35:00 CMP, serum or plasma 2022 023 moe Bird, [address], [place], [address], 3 11:35:17 CBC w/ auto diff 2022 023 moe Bird, [address], [place], [address], 3 11:35:17 vitamin D, 25-hydroxy, total, serum 2022 023 moe Bird, [address], [place], [address], 11:35:16 vitamin B12, serum 2022 023 [email or web address] [facility], [address], [place], [address], 11:34:53 HbA1c (hemoglobin A1c), blood 2022 023 [email or web address] [facility], [address], [place], [address], 11:35:16 Referral None recorded. Procedures None recorded. Surgeries None recorded. Imaging XR, hip, unilateral 2022 023 ANA LILIA Not available 16:09:59 Medication Orders nystatin 100,000 unit/mL oral suspension 2022 023 ANA LILIA [id number], [address] [place], [address], 10:15:43 Patient TargetsNo targets recorded. Patient InstructionsNo instructions recorded. Reason for Referral None Reported. Results Created Date Observation Date Name Description Value Unit Range Abnormal Flag Note LastModifiedBy Organization Detail LastModifiedTime 03/30/2002/05/2023 CT, abdom en + pelvi s, w/ contr ast No observ ation record ed. [address], [place], [address], 03/31/2023 15:10:53 04/06/20 23 04/05/2023 colon oscop y scree ac (PROC ) No observ ation record ed. [email or web address] Not Available 2022 09:57:37 05/18/20 23 01/15/2023 CT, abdom en + pelvi s, w/ contr ast No observ ation record ed. BARCODE Not Available 2022 16:07:04 06/16/20 23 06/16/2023 XR, hip, unila teral No observ ation record ed. [facility] [address], [place], [address], 06/18/2023 15:26:48 10/05/19 24 10/05/2023 MAMMO , diagn ostic , digit al, bilat eral No observ ation record ed. [email or web address] [address], [address], 10/06/2023 14:30:01 Result Notes None recorded. Problems Name Problem SNOMED Code Status Onset Date Resolution Date Notes Provider Name and Address Organization Details Recorded Time Suprapubic pain 964031929 Active Not Available [facility] 3 17:29:42 Spondyloli sthesis 959819008 Active Not Available [facility] 3 17:29:42 Left lower quadrant pain 766181386 Active Not Available [facility] 3 17:29:42 Right upper quadrant pain 640180913 Active Not Available [facility] 3 17:29:43 Hypoglycem ia 348155768 Active Not Available [facility] 3 17:29:43 Lower urinary tract symptoms 616764335 Active Not Available [facility] 3 17:29:43 Diverticul ar disease 854226232 Active Not Available [facility] 3 17:29:43 Adhesive capsulitis of shoulder 421953314 Active Not Available [facility] 3 17:29:43 Pharyngiti s 949409174 Active Not Available [facility] 3 17:29:43 Dysuria 91977225 Active Not Available [facility] 3 17:29:43 Fatigue 01859405 Active Not Available [facility] 3 17:29:43 Vitamin D deficiency 71155122 Active 2022 TYRA Sol [address] [place] [address], [place], [address] , [facility] 3 15:24:21 Diverticul ar disease of colon 855302389 Active 2022 TYRA Sol [address], [address], [place], [address] , [place] [facility] 3 15:25:04 Chronic interstiti al cystitis 598421723 Active 2022 TYRA Sol [address], [address], [place], [address] , [place] [facility] 3 15:25:37 Acute urinary tract infection 734703978 Active 2022 TYRA Sol [address], [address], [place], [address] , [place] [facility] 3 10:09:26 Urinary tract infectious disease 21806048 Active 2022 TYRA Sol [address], [address], [place], [address] , [place] [facility] 3 10:14:27 Allergic rhinitis 37805056 Active 2022 TYRA Sol [address], [address], [place], [address] , [place] [facility] 3 10:14:33 Pain of right hip joint 4919766207456 02 Active 2022 TYRA Sol [address], [address], [place], [address] , [place] [facility] 3 10:14:38 Coating of mucous membrane of tongue 888213121 Active 2022 TYRA Sol [address], [address], [place], [address] , [place] [facility] 3 10:15:21 Lump of axillary tail of right breast 7705344196408 06 Active 2022 TYRA Sol [address], [address], [place], [address] , [place] [facility] 3 09:45:11 Problem Notes None recorded. Procedures Surgical History Date Name Laterality Status Provider Name and Address Organization Details Recorded Time 09/13/19 10 cholecystectomy completed LEONIE Brown [place] 01/18/2023 14:07:31 09/13/19 08 section completed LEONIE Brown [facility] 01/18/2023 14:09:03 09/13/19 00 Breast Surgery completed LEONIE Brown Nola [facility] 01/18/2023 14:08:43 Imaging Results None recorded. Procedure Notes None recorded. Medical Equipment None Reported. Allergies Allergen ID Allergen Name Allergen Category Reaction Reaction Severity Criticality Documentation Date Start Date Code Code System Note Provider Name and Address Organization Details Recorded Time 12317 codeine medicatio n rash Not available Not available 11/11/2022 2670 RxNorm Not Available [facility] 17:30:55 Medications Name Sig Start Date Stop [...] azelastine 137 mcg (0.1 %) nasal spray Ackerly 2 sprays twice a day by intranasa [...] Address Organization Details Last Updated DateTime 3 92076.9 6 g 27.1 kg/m2 177.8 cm 89 /min 99 % 99 % 98.4 [degF] 124 mm[Hg] 86 mm[Hg] Joslyn Akins RN [facility] [employer] [facility] 3 15:02:20 Date Recorded Body height Body mass index (BMI) Body weight Body temperature Heart rate Oxygen saturation Oxygen saturation in Arterial blood by Pulse oximetry Systolic blood pressure Diastolic blood pressure Provider Name and Address Organization Details Last Updated DateTime 3 177.8 cm 25.8 kg/m2 89822.6 3 g 97.5 [degF] 80 /min 99 % 99 % 110 mm[Hg] 78 mm[Hg] Joslyn Akins RN [facility] [employer] [facility] 3 09:51:43 Social History Question Answer Notes LastModified by Organizat ion Details LastModified Time Tobacco Smoking Status Never Smoker Joslyn Akins RN [facility], [facility] [employer] [facility] 01/18/2023 14:04:46 What Is Your Level Of Caffeine Consumption? None [email or web address] Information not available 01/18/2023 In The 14 Days Before Symptom Onset, Have You Had Close Contact With A Laboratory-confirm ed COVID-19 While That Case Was Ill? No [email or web address] Information n ot available 01/18/2023 In The 14 Days Before Symptom Onset, Have You Had Close Contact With A Person Who Is Under Investigation For COVID-19 While That Person Was Ill? No Information not available 01/18/2023 What Type Of Diet Are You Following? REGULAR [email or web address] Information n ot available 01/18/2023 What Is The Highest Grade Or Level Of School You Have Completed Or The Highest Degree You Have Received? [id number] Information not available 01/18/2023 Have There Been Any Changes To Your Family Or Social Situation? No [email or web address] Information no t available 01/18/2023 Do You Use Insect Repellent Routinely? No [email or web address] Information not available 06/15/2023 What Is Your Relationship Status? [email or web address] Information not available 01/18/2023 Do You Use Your Seat Belt Or Car Seat Routinely? Yes [email or web address] Information not available 01/18/2023 Are You Passively Exposed To Smoke? No [email or web address] Information no t available 01/18/2023 Are There Any Smokers In Your House? No [email or web address] Information not available 01/18/2023 Do You Use Sunscreen Routinely? Yes [email or web address] Information not available 06/15/2023 Have You Recently Traveled Abroad? No [email or web address] Information not available 01/18/2023 Do You Have Any Dietary Restrictions? No [email or web address] Information not available 01/18/2023 Sex: Female Functional Status Question Answer Note LastModified by Organizat ion Details LastModified Time Do you use any illicit or recreational drugs? No [email or web address] Information not available 01/18/2023 Do you or have you ever used any other forms of tobacco or nicotine? No [email or web address] Information not available 01/18/2023 What is your level of alcohol consumption? None [email or web address] Information not available 01/18/2023 Are you currently employed? 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 None [email or web address] Information not available 01/18/2023 Mental Status Question Answer Note LastModified by Organization D etails LastModified Time Do you feel stressed (tense, restless, nervous, or anxious, or unable to sleep at night)? [id number] [email or web address] Information not available 01/18/2023 Family History Relationship Description Onset Age of this Age Resolved Age Notes LastModified by Organization Details LastModified Time Father Diabetes mellitus [email or web address] Not available 04/2023 14:03:23 Brother Malignant neoplasm of brain 58 [email or web address] Not available 04/2023 14:03:51 Medical History No medical history recorded. Gynecological HistoryNo gynecological history recorded. Obstetrics History GPAL:G 0 P 0 0 0 0 Past Encounters Encounter ID Performer Location Encounter Start Date Encounter Closed Date Diagnosis/Indication Diagnosis SNOMED-CT Code Diagnosis ICD10 Code Diagnosis Note [id number] TYRA Sol [facility] Internal Med [place] [address] [place] [address] 01/18/2023 14:41:01 01/18/2023 15:29:51 Adult health examination 288852765 Z00.00 well exam completed; all annual labs ordered. Cholesterol screening 27 4315750 Z13.220 Diabetes m ellitus screening 609198274 Z13.1 Vitamin D deficiency 347 36322 E55.9 Endocrine/ metabolic screening 604347541 Z13.228 Thyroid di sorder screening 971492973 Z13.29 Long-term drug therapy 513966922 Z79.899 Diverticul ar disease of colon 839141697 K57.30 post recent flare with abscess. seeing general surgeon in 2 weeks for f/u. Chronic in terstitial cystitis 634772051 N30.10 managed by urology [id number] TYRA Sol [facility] Internal Med [place] [address] [place] [address] 06/16/2023 09:42:50 06/16/2023 10:19:32 Urinary tract infectious disease 09460666 N39.0 continue augmentin abx therapy pt was already given end of May. Allergic rhinitis 709614 04 J30.9 take OTC antihistam ine. nasal steroid spray if able. Pain of ri ght hip joint 4261639625 67207 M25.551 check xray right hip. r/o OA Coating of mucous membrane of tongue 193675312 K14.3 trial of nystatin swish and swallow. Health Concerns Section Related Observation LastModified by Organization Detai ls LastModified Time None Recorded Concern Status LastModified by Organization Details LastModified Time None Recorded Advance Directives Directive None Recorded Payers Encounter Date Sequence Insurance Name Policy Number Policy Mohamud Covered Member ID Mohamud Member ID Guarantor Name 01/18/2023 1 [facility]: OUT OF STATE - BLUE CARD (PPO) [id number] Catrachito Olguin [id number] Alana Jason Olguin 06/16/2023 1 [facility] [id number] Catrachito Olguin [id number] Alana Gomez Clau Notes Date Note Type Note Provider Name and Address Organization Details Recorded Time 3 text/html Bowel Complaints/Fecal IncontinenceReported bypatient.Notes:previousl y saw GI, has not seen since 2020 last seen 2020was in [facility] 01/16 for c/o bowel problems (records requested)- diverticulitis was dx. here for wellness today - no current complaints for you TYRA Sol [address] [place] [address], [place], [address], [employer] [facility] [employer] 02/10/2023 15:34:16 3 text/html EaracheReported bypatient.Location:bilate ral [...] currently taking augmentin for uti TYRA Sol [address] [place] [address], [place], [address], [employer] [facility] [employer] 07/13/2023 00:20:22 OBGyn Episode No OBEpisode recorded.
--- OUTSIDE RECORDS SUMMARY | 2025-02-08 02:21 | XMS_ITS | Encounter Summary ---
Author Organization [facility] Address [address] [place] [address] Phone Care Team Providers Care Rig Superintendent Name Role Phone Loni Duong Primary Care [...] on file Legal Sex Female 8:16 PM COMMUNITY OUTREACH DIRECTOR Gender Identity Not on file Sexual Orientation [...] on filedocumented in this encounter Care Teams Rig Superintendent Relationship Specialty Start Date End Date Loni Duong PA PCP - General 11/19/16 documented as of this encounter
--- OUTSIDE RECORDS SUMMARY | 2025-02-08 02:21 | XMS_ITS | Clinical Summary ---
Author Organization [facility] Address [address] [place] [address] Phone Care Team Providers Care Manager Dental Name Role Phone Loni Duong Primary Care Provider [phone] Social History Tobacco Use Types Packs/Day Years Used Date Smoking Tobacco: Never Assessed Comments Unknown Sex and Gender Information Value Date Recorded Sex Assigned at Not on file Legal Sex Female 11:43 AM CLINICAL PHARMACY COORDINATOR Gender Identity Not on file Sexual Orientation [...] patient's age to complete this topic [place] [place] [address] Care Teams Manager Dental Relationship Specialty Start Date End Date Loni Duong PA PCP - General Family Medicine 09/03/17
--- OUTSIDE RECORDS SUMMARY | 2025-02-08 02:21 | XMS_ITS | Data Portability ---
Author Organization [facility] Address [address] [place] [address] Assessment Encounter Date Assessment Date Assessment LastModified [...] recorded. Lab biopsy, endometri al 2015 Tanna [email or web address] [facility], [address] [place] [address], [address], [place], [address], 6 13:08:18 pathology study - emb 2015 Tanna [email or web address] [facility], [address], [address], [place], [address], 6 12:06:24 urinalysi s, dipstick 2015 016 In-Office Order, Internal Use Only DO Not Attach Compendium DO Not Attach Compendium, Do Not Delete/merge, [id number] 6 10:54:31 test, urine 2015 016 [email or web address] In-Office Order, Internal Use Only DO Not Attach Compendium DO Not Attach Compendium, Do Not Delete/merge, [id number] 6 18:49:48 urinalysi s, dipstick 2015 016 [email or web address] In-Office Order, Internal Use Only DO Not Attach Compendium DO Not Attach Compendium, Do Not Delete/merge, [id number] 6 18:49:48 urinalysi s, dipstick 2015 016 In-Office Order, Internal Use Only DO Not Attach Compendium DO Not Attach Compendium, Do Not Delete/merge, [id number] 6 11:58:48 bacterial vaginosis + vaginitis panel, vaginal 2015 016 ANA LILIA [facility], [address], [address], [place], [address], 6 06:04:50 TSH + free T4, serum 2015 016 ANA LILIA [facility], [address], [address], [place], [address], 6 07:22:45 progester one, serum 2015 016 ANA LILIA [facility], [address], [address], [place], [address], 6 07:22:49 HbA1c (hemoglob in A1c), blood 2015 016 [facility] [address], [address], [place], [address], 6 07:22:47 CMP, serum or plasma 2015 016 ANA LILIA [facility], [address] [place], [place] [address]diann [address], [address], [place], [address], 6 07:22:46 FSH (follicle -stimulat ing hormone), serum 2015 016 [facility]IA [facility], [facility] [address], [address], [place], [address], 6 07:22:48 CBC w/ auto diff 2015 016 [facility], [address] [place] [address] Claude, [address], [place], [address], 6 07:22:45 estradiol , serum 2015 016 [facility], [address] [place], [place] [address]jovan Claude, [address], [place], [address], 6 07:22:48 urinalysi s, dipstick 2015 Tanna song In-Office Order, Internal Use Only DO Not Attach Compendium DO Not Attach Compendium, Do Not Delete/merge, [id number] 6 16:20:53 culture, urine 2015 016 ANA LILIA [facility], [facility] [address], [address], [place], [address], 6 06:12:59 pap, IG + HPV, cervical 2015 016 ANA LILIA OBRIEN, [address]az[address], [address], [place], [address], 6 16:41:55 bacterial vaginosis + vaginitis panel, vaginal 2015 016 ANA LILIA OBRIEN, [address], [address], [place], [address], 6 06:11:53 HSV (1+2) DNA, qual, PCR, unspecifi ed specimen 2015 016 ANA LILIA OBRIEN, [address], [address], [place], [address], 6 06:11:54 unlisted lab - kathy 6 species profile, MANJIT 2015 016 ANA LILIA COOPERNARAYAN, Gary Ndiayeabidageetadiann [address], [address], [place], [address], 6 06:11:54 test, urine 2014 Jaqui song In-Office Order, Internal Use Only DO Not Attach Compendium DO Not Attach Compendium, Do Not Delete/merge, [id number] 5 09:30:07 CBC w/ auto diff 2014 015 ANA LILIA COOPERNARAYAN, Gary Ndiayemike [address], [address], [place], [address], 5 16:34:31 progester one, serum 2014 015 ANA LILIA WESLEYJULIETA, Gary Ndiayemike [address], [address], [place], [address], 5 16:34:36 HbA1c (hemoglob in A1c), blood 2014 015 ANA LILIA WESLEYJULIETA, FitoLana [address], [address], [place], [address], 5 16:34:33 CMP, serum or plasma 2014 015 ANA LILIA [facility], [address], [address], [place], [address], 5 16:34:32 TSH, serum or plasma 2014 015 [email or web address] [facility], [address], [address], [place], [address], 5 16:20:44 FSH (follicle -stimulat ing hormone), serum 2014 015 ANA LILIA [facility], [address], [address], [place], [address], 5 16:34:34 estradiol , serum 2014 015 ANA LILIA OBRIEN, [address], [address], [place], [address], 5 16:34:35 urinalysi s, dipstick 2014 015 [email or web address] In-Office Order, Internal Use Only DO Not Attach Compendium DO Not Attach Compendium, Do Not Delete/merge, [id number] 5 09:30:07 bacterial vaginosis + vaginitis panel, vaginal 2014 015 ANA LILIA [facility], [address], [address], [place], [address], 5 11:41:55 HSV (1+2) DNA, qual, PCR, unspecifi ed specimen 2014 015 ANA LILIA OBRIEN, [address], [address], [place], [address], 5 11:41:56 culture, vaginal/r ectal, streptoco ccus group B 2014 015 [facility], [address] [facility], [address], [place], [address], 5 11:41:56 Referral gastroent erologist referral - colitis and diverticu litis. needs colonosco py and f/u with specialis t 2015 016 [facility], [address] [facility], [address] [facility], [place], [address], 6 17:31:59 Procedures None recorded. Surgeries None recorded. Imaging US, transvagi nal 2015 016 [facility], [address] [place], [address], 6 13:50:22 Medication Orders Diflucan 150 mg tablet 2015 016 [id number], [address] [place], [address], 6 18:32:13 Berkshire 5 mg-325 mg tablet 2015 016 [id number], [address] [place], [address], 6 18:32:13 ibuprofen 800 mg tablet 2015 016 [id number], [address] [place], [address], 6 18:32:13 nystatin 100,000 unit/gram topical cream 2014 015 [id number], [address] [place], [address], 6 15:38:41 fluconazo le 150 mg tablet 2014 015 duncan [id number], [address] [place], [address], 6 15:38:41 Patient TargetsNo targets recorded. Patient Instructions Encounter Date Encounter Id Patient Instructions Last Modified By Organization Details Last Modified Time 12/20/[id number] candidiasis: care instructions [email or web address] Not available 12/24/2014 10:07:34 11/04/2015 [id number] irritable bowel syndrome: care instructions [email or web address] Not available 11/04/2015 16:20:54 05/13/2016 [id number] chronic pelvic pain: care instructions Not available 05/13/2016 18:32:13 06/03/2016 [id number] uterine fibroids: care instructions [email or web address] Not available 06/04/2016 09:11:19 06/10/2016 [id number] chronic pelvic pain: care instructions [email or web address] Not available 06/11/2016 12:06:05 uterine fibroids: care instructions [email or web address] Not available 06/11/2016 12:06:05 Reason for Referral colitis and diverticulitis. needs colonoscopy and f/u with specialist Referring Physician: Cosme Gloria, BORDER INSPECTOR, Encounter Date: 11/04/2015 Results Created Date Observation Date Name Description Value Unit Range Abnormal Flag Note LastModifiedBy Organization Detail LastModifiedTime 06/10/2006/10/2016 urina lysis , dipst ick Leukocytes Trace Not Available In-Offi ce Order Internal Use Only DO Not Attach Compendium DO Not Attach Compendium, Do Not Delete/merge, [id number] 06/10/2016 12:30:19 06/10/20 16 06/10/2016 urina lysis , dipst ick Nitrite negati ve Not Available In-Office Order Internal Use Only DO Not Attach Compendium DO Not Attach Compendium, Do Not Delete/merge, [id number] 06/10/2016 12:30:19 06/10/20 16 06/10/2016 urina lysis [...] 06/10/2016 urina lysis , dipst ick Specific Sieper 1.015 Not Available In-Off ice Order Internal [...] 06/03/2016 urina lysis , dipst ick Specific Sieper 1.020 Not Available In-Off ice Order Internal [...] 05/13/2016 urina lysis , dipst ick Specific Sieper 1.030 Not Available In-Off ice Order Internal [...] 11/04/2015 urina lysis , dipst ick Specific Sieper 1.030 Not Available In-Off ice Order Internal [...] 12/21/1912/20/2014 urina lysis , dipst ick Specific Sieper 1.020 Not Available In-Off ice Order Internal [...] 12/10/2014 urina lysis , dipst ick Specific Sieper 1.015 Not Available In-Off ice Order Internal [...] LOW - 0 score Not Available [facility]) [address] [facility], [place], [address], 12/26/2014 11:41:55 12/21/19 15 12/25/2014 bacte rial vagin osis + vagin itis panel , vagin al bvab 2 LOW - 0 score Not Available [facility] ([facility]) [address] [facility] [address] [facility], [place], [address], 12/26/2014 11:41:55 12/21/1912/25/2014 bacte rial vagin osis [...] IS NOT NECES DARÍO. Not Available [facility] ([facility]) [address] [facility] [address] [facility], [place], [address], 12/26/2014 11:41:55 12/21/1912/25/2014 bacte rial vagin osis + vagin itis panel , vagin al kathy albicans, MANJIT NEGATI VE negati ve Not Available [facility] ([facility]) [address] [facility] [address] [facility], [place], [address], 12/26/2014 11:41:55 12/21/19 15 12/25/2014 bacte rial [...] IS NOT NECES DARÍO. Not Available [facility] ([facility]) [address] [place], [address], 12/26/2014 11:41:55 12/21/1912/26/2014 bacte rial vagin osis + vagin itis panel , vagin al trich vag by MANJIT NEGATI VE negati ve Not Available [facility] ([facility]) [address] [place], [address], 12/26/2014 11:41:55 12/21/19 15 12/26/2014 bacte rial vagin osis + vagin itis panel , vagin al chlamydia trachomatis, MANJIT NEGATI VE negati ve Not Available [facility] ([facility]) [address] [place], [address], 12/26/2014 11:41:55 12/21/19 15 12/26/2014 bacte rial vagin osis + vagin itis panel , vagin al neisseria gonorrhoeae, MANJIT NEGATI VE negati ve Not Available [facility] ([facility]) [address] [place], [address], 12/26/2014 11:41:55 12/21/1912/24/2014 HSV (1+2) DNA, qual, PCR, unspe cifie d speci men hsv 1 MANJIT NEGATI VE negati ve Not Available [facility] ([facility]) [address] [place], [address], 12/26/2014 11:41:56 12/21/192015 HSV (1+2) DNA, qual, PCR, unspe cifie d speci men hsv 2 MANJIT NEGATI VE negati ve Not Available [facility] ([facility]) [address] [facility], [place], [address], 12/26/2014 11:41:56 12/21/19 15 12/23/2014 cultu re, [...] LINES , MMWR, 2009) Not Available [facility] ([facility]) [address] [facility], [place], [address], 12/26/2014 11:41:56 12/21/19 15 12/21/2014 CBC w/ auto diff WBC 5.5 x10e3 /uL 3.4-10 .8 Not Available [facility] ([facility]) [address] [facility], [place], [address], 12/26/2014 16:34:31 12/21/19 15 12/21/2014 CBC w/ auto diff RBC 4.68 x10e6 /uL 3.77-5 .28 Not Available [facility] ([facility]) [address] [place], [address], 12/26/2014 16:34:31 12/21/19 15 12/21/2014 CBC w/ auto diff hemoglobin 13.9 g/dL 11.1-1 5.9 Not Available [facility] ([facility]) [address] [facility], [place], [address], 12/26/2014 16:34:31 12/21/19 15 12/21/2014 CBC w/ auto diff hematocrit 41.5 % 34.0-4 6.6 Not Available [facility]) [address] [facility], [place], [address], 12/26/2014 16:34:31 12/21/19 15 12/21/2014 CBC w/ auto diff MCV 89 fL 79-97 Not Available [facility] ([facility]) [address] [facility], [place], [address], 12/26/2014 16:34:31 12/21/19 15 12/21/2014 CBC w/ auto diff MCH 29.7 pg 26.6-3 3.0 Not Available [facility] ([facility]) [address] [facility], [place], [address], 12/26/2014 16:34:31 12/21/19 15 12/21/2014 CBC w/ auto diff MCHC 33.5 g/dL 31.5-3 5.7 Not Available [facility] ([facility]) [address] [facility], [place], [address], 12/26/2014 16:34:31 12/21/19 15 12/21/2014 CBC w/ auto diff RDW 13.2 % 12.3-1 5.4 Not Available [facility] ([facility]) [address] [facility], [place], [address], 12/26/2014 16:34:31 12/21/19 15 12/21/2014 CBC w/ auto diff platelets 298 x10e3 /uL 150-37 9 Not Available [facility] ([facility]) [address] [facility], [place], [address], 12/26/2014 16:34:31 12/21/19 15 12/21/2014 CBC w/ auto diff neutrophils 55 % Not Available [facility]) [address] [place], [address], 12/26/2014 16:34:31 12/21/19 15 12/21/2014 CBC w/ auto diff lymphs 33 % Not Available [facility] ([facility]) [address] [place], [address], 12/26/2014 16:34:31 12/21/1912/21/2014 CBC w/ auto diff monocytes 8 % Not Available [facility] ([facility]) [address] [place], [address], 12/26/2014 16:34:31 12/21/1912/21/2014 CBC w/ auto diff eos 3 % Not Available [facility]) [address] [place], [address], 12/26/2014 16:34:31 12/21/19 15 12/21/2014 CBC w/ auto diff basos 1 % Not Available [facility] ([facility]) [address] [place], [address], 12/26/2014 16:34:31 12/21/1912/21/2014 CBC w/ auto diff neutrophils (absolute) 3.1 x10e3 /uL 1.4-7. 0 Not Available [facility] ([facility]) [address] [place] [address], [address], 12/26/2014 16:34:31 12/21/1912/21/2014 CBC w/ auto diff lymphs (absolute) 1.8 x10e3 /uL 0.7-3. 1 Not Available [facility] ([facility]) [address] [place] [address], [address], 12/26/2014 16:34:31 12/21/19 15 12/21/2014 CBC w/ auto diff monocytes(ab solute) 0.4 x10e3 /uL 0.1-0. 9 Not Available [facility] ([facility]) [address] [place], [address], 12/26/2014 16:34:31 12/21/19 15 12/21/2014 CBC w/ auto diff eos (absolute) 0.2 x10e3 /uL 0.0-0. 4 Not Available [facility] ([facility]) [address] [place], [address], 12/26/2014 16:34:31 12/21/19 15 12/21/2014 CBC w/ auto diff baso (absolute) 0.0 x10e3 /uL 0.0-0. 2 Not Available [facility] ([facility]) [address] [facility], [place], [address], 12/26/2014 16:34:31 12/21/19 15 12/21/2014 CBC w/ auto diff immature granulocytes 0 % Not Available [facility]) [address] [facility], [place], [address], 12/26/2014 16:34:31 12/21/1912/21/2014 CBC w/ auto diff immature grans (abs) 0.0 x10e3 /uL 0.0-0. 1 Not Available [facility] ([facility]) [address] [facility], [place], [address], 12/26/2014 16:34:31 12/21/1912/21/2014 CMP, serum or plasm a glucose, serum 99 mg/dL 65-99 Not Available [facility]) [address] [place], [address], 12/26/2014 16:34:32 12/21/1912/21/2014 CMP, serum or plasm a BUN 13 mg/dL 6-24 Not Available [facility] ([facility]) [address] [place], [address], 12/26/2014 16:34:32 12/21/19 15 12/21/2014 CMP, serum or plasm a creatinine, serum 0.81 mg/dL 0.57-1 .00 Not Available [facility] ([facility]) [address] [facility] [place], [address], 12/26/2014 16:34:32 12/21/19 15 12/21/2014 CMP, serum or plasm a eGFR if nonafricn AM 85 mL/mi n/1.7 3 >59 Not Available [facility] ([facility]) [address] [facility] [place], [address], 12/26/2014 16:34:32 12/21/19 15 12/21/2014 CMP, serum or plasm a eGFR if africn AM 98 mL/mi n/1.7 3 >59 Not Available [facility] ([facility]) [address] [facility] [place], [address], 12/26/2014 16:34:32 12/21/19 15 12/21/2014 CMP, serum or plasm a BUN/creatini ne ratio 16 9-23 Not Available [facility]) [address] [place], [address], 12/26/2014 16:34:32 12/21/19 15 12/21/2014 CMP, serum or plasm a sodium, serum 140 mmol/ L 134-14 4 Not Available [facility] ([facility]) [address] [place], [address], 12/26/2014 16:34:32 12/21/19 15 12/21/2014 CMP, serum or plasm a potassium, serum 4.3 mmol/ L 3.5-5. 2 Not Available [facility] ([facility]) [address] [place], [address], 12/26/2014 16:34:32 12/21/19 15 12/21/2014 CMP, serum or plasm a chloride, serum 97 mmol/ L 97-108 Not Available [facility] ([facility]) [address] [facility] [place], [address], 12/26/2014 16:34:32 12/21/1912/21/2014 CMP, serum or plasm a carbon dioxide, total 27 mmol/ L 18-29 Not Available [facility] ([facility]) [address] [facility] [place], [address], 12/26/2014 16:34:32 12/21/1912/21/2014 CMP, serum or plasm a calcium, serum 10.3 mg/dL 8.7-10 .2 high Not Available [facility] ([facility]) [address] [facility] [place], [address], 12/26/2014 16:34:32 12/21/1912/21/2014 CMP, serum or plasm a protein, total, serum 7.2 g/dL 6.0-8. 5 Not Available [facility] ([facility]) [address] [place], [address], 12/26/2014 16:34:32 12/21/1912/21/2014 CMP, serum or plasm a albumin, serum 4.7 g/dL 3.5-5. 5 Not Available [facility] ([facility]) [address] [facility] [place], [address], 12/26/2014 16:34:32 12/21/1912/21/2014 CMP, serum or plasm a globulin, total 2.5 g/dL 1.5-4. 5 Not Available [facility] ([facility]) [address] [place], [address], 12/26/2014 16:34:32 12/21/1912/21/2014 CMP, serum or plasm a A/G ratio 1.9 1.1-2. 5 Not Available [facility] ([facility]) [address] [place], [address], 12/26/2014 16:34:32 12/21/19 15 12/21/2014 CMP, serum or plasm a bilirubin, total 0.5 mg/dL 0.0-1. 2 Not Available [facility] ([facility]) [address] [place], [address], 12/26/2014 16:34:32 12/21/19 15 12/21/2014 CMP, serum or plasm a alkaline phosphatase, S 80 IU/L 39-117 Not Available [facility]) [address] [place], [address], 12/26/2014 16:34:32 12/21/19 15 12/21/2014 CMP, serum or plasm a AST (SGOT) 26 IU/L 0-40 Not Available [facility] ([facility]) [address] [place] [address], [address], 12/26/2014 16:34:32 12/21/1912/21/2014 CMP, serum or plasm a ALT (SGPT) 25 IU/L 0-32 Not Available [facility] ([facility]) [address] [place], [address], 12/26/2014 16:34:32 12/21/19 15 12/20/2014 yfn (risk [...] HOLGUIN ON SURGE RY. Not Available [facility] ([facility]) [address] [place], [address], 12/26/2014 16:34:32 12/21/1912/20/2014 yfn (risk of ovari an malig ezio algor ithm score ), serum (lizzie enopa usal) postmenopaus al interp: low COMMEN T IF THE PATIE NT IS POSTM ENOPA USAL, THEN THE POSTM ENOPA USAL YFN SCORE OF LESS THAN 2.77 IS CONSI STENT WITH A LOW LIKEL IHOOD OF FINDI NG A MALADRIEL EZIO ON SURGE RY. Not Available [facility] ([facility]) [address] [facility], [place], [address], 12/26/2014 16:34:32 12/21/19 15 12/20/2014 yfn (risk [...] DIAGN OSTIC ASSAY . Not Available [facility] ([facility]) [address] [facility] [address] [facility], [place], [address], 12/26/2014 16:34:32 12/21/19 15 12/24/2014 yfn (risk of ovari an malig ezio algor ithm score ), serum (lizzie enopa usal) he4 45 pmol/ L 0-150 FUJIR EBIO EIA METHO DOLOG Y . CA125 VALUE S OBTAI NELLY WITH DIFFE RENT ASSAY METHO DS OR KITS CANNO T BE USED INTER LARSON EABLY . Not Available [facility] ([facility]) [address] [facility], [place], [address], 12/26/2014 16:34:32 12/21/19 12/26/2014 yfn (risk of ovari an malig ezio algor ithm score ), serum (lizzie enopa usal) cancer antigen 125 (Ca125) 16.2 U/mL 0.0-35 .0 ABBOT T CMIA METHO DOLOG Y Not Available [facility] ([facility]) [address] [place], [address], 12/26/2014 16:34:32 12/21/1912/26/2014 yfn (risk of ovari an malig ezio algor ithm score ), serum (lizzie enopa usal) premenopausa l yfn 0.59 see below Not Available [facility] ([facility]) [address] [place], [address], 12/26/2014 16:34:32 12/21/1912/26/2014 yfn (risk of ovari an malig ezio algor ithm score ), serum (lizzie enopa usal) postmenopaus al yfn 1.10 see below Not Available [facility] ([facility]) [address] [place], [address], 12/26/2014 16:34:32 12/21/1912/21/2014 HbA1c (hemo globi n A1c), blood hemoglobin A1C 5.3 % 4.8-5. 6 . INCRE ASED RISK FOR DIABE SHON: 5.7 - 6.4 DIABE SHON: >6.4 GLYCE HARJINDER CONTR OL FOR ADULT S WITH DIABE SHON: <7.0 Not Available [facility] ([facility]) [address] [place], [address], 12/26/2014 16:34:33 12/21/1912/21/2014 ca 125, serum cancer antigen (Ca) 125 15.6 U/mL 0.0-34 .0 FREDY ECLIA METHO DOLOG Y Not Available [facility] ([facility]) [address] [place], [address], 12/26/2014 16:34:34 12/21/1912/21/2014 FSH (foll icle- stimu latin g hormo ne), serum FSH 88.6 mIU/m L FOLLI CULAR PHASE 3.5 - 12.5 OVULA TION PHASE 4.7 - 21.5 LUTEA L PHASE 1.7 - 7.7 POSTM ENOPA USAL 25.8 - 134.8 Not Available [facility] ([facility]) [address] [place], [address], 12/26/2014 16:34:34 12/21/19 15 12/21/2014 estra diol, serum estradiol <5.1 pg/mL ADULT FEMAL E: FOLLI CULAR PHASE 12.5 - 166.0 OVULA TION PHASE 85.8 - 498.0 LUTEA L PHASE 43.8 - 211.0 POSTM ENOPA USAL <6.0 - 54.7 PREGN TINY 1ST TRIME STER 215.0 - >4300 .0 GIRLS (1-10 YEARS ) 6.0 - 27.0 FREDY ECLIA METHO DOLOG Y Not Available [facility] ([facility]) [address] [place], [address], 12/26/2014 16:34:35 12/21/1912/21/2014 TSH, ultra -sens itive , serum TSH 1.140 uIU/m L 0.450- 4.500 Not Available [facility] ([facility]) [address] [place], [address], 12/26/2014 16:34:36 12/21/1912/21/2014 proge stero ne, serum progesterone 0.4 NG/mL FOLLI CULAR PHASE 0.2 - 1.5 LUTEA L PHASE 1.7 - 27.0 OVULA TION PHASE 0.8 - 3.0 PREGN ANT FIRST TRIME STER 8.8 - 48.6 SECON D TRIME STER 12.4 - 75.8 THIRD TRIME STER 58.5 - 222.3 POSTM ENOPA USAL 0.1 - 0.8 Not Available [facility] ([facility]) [address] [place], [address], 12/26/2014 16:34:36 11/04/19 16 11/05/2015 TSH + free T4, serum TSH 1.100 uIU/m L 0.450- 4.500 Not Available [facility] ([facility]) [address] [place], [address], 11/05/2015 07:22:45 11/04/19 16 11/05/2015 TSH + free T4, serum T4,free(dire ct) 1.22 NG/dL 0.82-1 .77 Not Available [facility] ([facility]) [address] [place], [address], 11/05/2015 07:22:45 11/04/19 16 11/05/2015 CBC w/ auto diff WBC 5.5 x10e3 /uL 3.4-10 .8 Not Available [facility] ([facility]) [address] [place], [address], 11/05/2015 07:22:45 11/04/19 16 11/05/2015 CBC w/ auto diff RBC 4.75 x10e6 /uL 3.77-5 .28 Not Available [facility] ([facility]) [address] [place], [address], 11/05/2015 07:22:45 11/04/19 16 11/05/2015 CBC w/ auto diff hemoglobin 13.9 g/dL 11.1-1 5.9 Not Available [facility] ([facility]) [address] [place], [address], 11/05/2015 07:22:45 11/04/19 16 11/05/2015 CBC w/ auto diff hematocrit 40.8 % 34.0-4 6.6 Not Available [facility] ([facility]) [address] [place], [address], 11/05/2015 07:22:45 11/04/19 16 11/05/2015 CBC w/ auto diff MCV 86 fL 79-97 Not Available [facility] ([facility]) [address] [facility], [place], [address], 11/05/2015 07:22:45 11/04/19 16 11/05/2015 CBC w/ auto diff MCH 29.3 pg 26.6-3 3.0 Not Available [facility] ([facility]) [address] [facility], [place], [address], 11/05/2015 07:22:45 11/04/19 16 11/05/2015 CBC w/ auto diff MCHC 34.1 g/dL 31.5-3 5.7 Not Available [facility] ([facility]) [address] [facility], [place], [address], 11/05/2015 07:22:45 11/04/19 16 11/05/2015 CBC w/ auto diff RDW 13.0 % 12.3-1 5.4 Not Available [facility] ([facility]) [address] [facility], [place], [address], 11/05/2015 07:22:45 11/04/19 16 11/05/2015 CBC w/ auto diff platelets 408 x10e3 /uL 150-37 9 above high normal Not Available [facility] ([facility]) [address] [facility], [place], [address], 11/05/2015 07:22:45 11/04/19 16 11/05/2015 CBC w/ auto diff neutrophils 51 % Not Available [facility] ([facility]) [address], [place], [address], 11/05/2015 07:22:45 11/04/19 16 11/05/2015 CBC w/ auto diff lymphs 40 % Not Available [facility] ([facility]) [address], [place], [address], 11/05/2015 07:22:45 11/04/19 16 11/05/2015 CBC w/ auto diff monocytes 7 % Not Available [facility] ([facility]) [address] [place], [address], 11/05/2015 07:22:45 11/04/19 16 11/05/2015 CBC w/ auto diff eos 2 % Not Available [facility] ([facility]) [address] [place], [address], 11/05/2015 07:22:45 11/04/19 16 11/05/2015 CBC w/ auto diff basos 0 % Not Available [facility] ([facility]) [address] [place], [address], 11/05/2015 07:22:45 11/04/19 16 11/05/2015 CBC w/ auto diff immature cells [employer]PLICATION [employer]CHITECT Not Available [facility] ([facility]) [address] [place], [address], 11/05/2015 07:22:45 11/04/19 16 11/05/2015 CBC w/ auto diff neutrophils (absolute) 2.8 x10e3 /uL 1.4-7. 0 Not Available [facility] ([facility]) [address] [place], [address], 11/05/2015 07:22:45 11/04/19 16 11/05/2015 CBC w/ auto diff lymphs (absolute) 2.2 x10e3 /uL 0.7-3. 1 Not Available [facility] ([facility]) [address] [place], [address], 11/05/2015 07:22:45 11/04/19 16 11/05/2015 CBC w/ auto diff monocytes(ab solute) 0.4 x10e3 /uL 0.1-0. 9 Not Available [facility] ([facility]) [address] [place], [address], 11/05/2015 07:22:45 11/04/19 16 11/05/2015 CBC w/ auto diff eos (absolute) 0.1 x10e3 /uL 0.0-0. 4 Not Available [facility] ([facility]) [address] [place], [address], 11/05/2015 07:22:45 11/04/19 16 11/05/2015 CBC w/ auto diff baso (absolute) 0.0 x10e3 /uL 0.0-0. 2 Not Available [facility] ([facility]) [address] [facility], [place], [address], 11/05/2015 07:22:45 11/04/19 16 11/05/2015 CBC w/ auto diff immature granulocytes 0 % Not Available [facility] ([facility]) [address] [place], [address], 11/05/2015 07:22:45 11/04/19 16 11/05/2015 CBC w/ auto diff immature grans (abs) 0.0 x10e3 /uL 0.0-0. 1 Not Available [facility] ([facility]) [address] [facility], [place], [address], 11/05/2015 07:22:45 11/04/19 16 11/05/2015 CBC w/ auto diff NRBC ENTER[employer]ISE APPLICATION ARCHITECT Not Available [facility] ([facility]) [address] [place], [address], 11/05/2015 07:22:45 11/04/19 16 11/05/2015 CBC w/ auto diff hematology comments: ENTER[employer]PLICATION ARCHITECT Not Available [facility] ([facility]) [address] [place], [address], 11/05/2015 07:22:45 11/04/19 16 11/05/2015 CMP, serum or plasm a glucose, serum 108 mg/dL 65-99 above high normal Not Available [facility] ([facility]) [address] [place], [address], 11/05/2015 07:22:46 11/04/19 16 11/05/2015 CMP, serum or plasm a BUN 11 mg/dL 6-24 Not Available [facility] ([facility]) [address] [place], [address], 11/05/2015 07:22:46 11/04/19 16 11/05/2015 CMP, serum or plasm a creatinine, serum 0.76 mg/dL 0.57-1 .00 Not Available [facility] ([facility]) [address] [place], [address], 11/05/2015 07:22:46 11/04/19 16 11/05/2015 CMP, serum or plasm a eGFR if nonafricn AM 91 mL/mi n/1.7 3 >59 Not Available [facility] ([facility]) [address] [place], [address], 11/05/2015 07:22:46 11/04/19 16 11/05/2015 CMP, serum or plasm a eGFR if africn AM 105 mL/mi n/1.7 3 >59 Not Available [facility] ([facility]) [address] [place], [address], 11/05/2015 07:22:46 11/04/19 16 11/05/2015 CMP, serum or plasm a BUN/creatini ne ratio 14 9-23 Not Available [facility] ([facility]) [address] [place], [address], 11/05/2015 07:22:46 11/04/19 16 11/05/2015 CMP, serum or plasm a sodium, serum 143 mmol/ L 134-14 4 Not Available [facility] ([facility]) [address] [place], [address], 11/05/2015 07:22:46 11/04/19 16 11/05/2015 CMP, serum or plasm a potassium, serum 4.5 mmol/ L 3.5-5. 2 Not Available [facility] ([facility]) [address] [place], [address], 11/05/2015 07:22:46 11/04/19 16 11/05/2015 CMP, serum or plasm a chloride, serum 102 mmol/ L 97-108 Not Available [facility] ([facility]) [address] [facility] [place], [address], 11/05/2015 07:22:46 11/04/19 16 11/05/2015 CMP, serum or plasm a carbon dioxide, total 25 mmol/ L 18-29 Not Available [facility] ([facility]) [address] [place], [address], 11/05/2015 07:22:46 11/04/19 16 11/05/2015 CMP, serum or plasm a calcium, serum 9.9 mg/dL 8.7-10 .2 Not Available [facility] ([facility]) [address] [place], [address], 11/05/2015 07:22:46 11/04/1911/05/2015 CMP, serum or plasm a protein, total, serum 7.4 g/dL 6.0-8. 5 Not Available [facility] ([facility]) [address] [place], [address], 11/05/2015 07:22:46 11/04/19 16 11/05/2015 CMP, serum or plasm a albumin, serum 4.6 g/dL 3.5-5. 5 Not Available [facility] ([facility]) [address] [place], [address], 11/05/2015 07:22:46 11/04/1911/05/2015 CMP, serum or plasm a globulin, total 2.8 g/dL 1.5-4. 5 Not Available [facility] ([facility]) [address] [place], [address], 11/05/2015 07:22:46 11/04/1911/05/2015 CMP, serum or plasm a A/G ratio 1.6 1.1-2. 5 Not Available [facility] ([facility]) [address] [place], [address], 11/05/2015 07:22:46 11/04/19 16 11/05/2015 CMP, serum or plasm a bilirubin, total 0.3 mg/dL 0.0-1. 2 Not Available [facility] ([facility]) [address] [place], [address], 11/05/2015 07:22:46 11/04/19 16 11/05/2015 CMP, serum or plasm a alkaline phosphatase, S 84 IU/L 39-117 Not Available [facility] ([facility]) [address] [place], [address], 11/05/2015 07:22:46 11/04/19 16 11/05/2015 CMP, serum or plasm a AST (SGOT) 24 IU/L 0-40 Not Available [facility] ([facility]) [address] [place], [address], 11/05/2015 07:22:46 11/04/19 16 11/05/2015 CMP, serum or plasm a ALT (SGPT) 28 IU/L 0-32 Not Available [facility] ([facility]) [address] [place], [address], 11/05/2015 07:22:46 11/04/19 16 11/05/2015 HbA1c (hemo globi n A1c), blood hemoglobin A1C 5.5 % 4.8-5. 6 PRE-D IABET ES: 5.7 - 6.4 DIABE SHON: >6.4 GLYCE HARJIDNER CONTR OL FOR ADULT S WITH DIABE SHON: <7.0 Not Available [facility] ([facility]) [address] [place], [address], 11/05/2015 07:22:47 11/04/19 16 11/05/2015 FSH (foll icle- stimu latin g hormo ne), serum FSH 102.7 mIU/m L FOLLI CULAR PHASE 3.5 - 12.5 OVULA TION PHASE 4.7 - 21.5 LUTEA L PHASE 1.7 - 7.7 POSTM ENOPA USAL 25.8 - 134.8 Not Available [facility] ([facility]) [address] [facility], [place], [address], 11/05/2015 07:22:47 11/04/19 16 11/05/2015 estra diol, serum estradiol 9.1 pg/mL ADULT FEMAL E: FOLLI CULAR PHASE 12.5 - 166.0 OVULA TION PHASE 85.8 - 498.0 LUTEA L PHASE 43.8 - 211.0 POSTM ENOPA USAL <6.0 - 54.7 PREGN TINY 1ST TRIME STER 215.0 - >4300 .0 GIRLS (1-10 YEARS ) 6.0 - 27.0 FRDEY ECLIA METHO DOLOG Y Not Available [facility] ([facility]) [address] [facility], [place], [address], 11/05/2015 07:22:48 11/04/19 16 11/05/2015 proge stero ne, serum progesterone 0.3 NG/mL FOLLI CULAR PHASE 0.2 - 1.5 LUTEA L PHASE 1.7 - 27.0 OVULA TION PHASE 0.8 - 3.0 PREGN ANT FIRST TRIME STER 8.8 - 48.6 SECON D TRIME STER 12.4 - 75.8 THIRD TRIME STER 58.5 - 222.3 POSTM ENOPA USAL 0.1 - 0.8 Not Available [facility] ([facility]) [address] [facility], [place], [address], 11/05/2015 07:22:49 11/04/19 16 11/06/2015 cultu re, urine urine culture, routine FINAL REPORT Not Available [facility] ([facility]) [address] [facility], [place], [address], 11/06/2015 06:12:59 11/04/19 16 11/06/2015 cultu re, urine result 1 FORD Gambino MIXED UROGE NITAL CRISTI 10,00 0-25, 000 COLON Y FORMI NG UNITS PER ML Not Available [facility] ([facility]) [address] [place], [address], 11/06/2015 06:12:59 11/04/19 16 11/05/2015 pap, IG + HPV, cervi alon diagnosis: FORD VALADEZ FOR INTRA EPITH ELIAL LESIO N AND MALADRIEL EZIO . Not Available [facility] ([facility]) [address] [place], [address], 11/07/2015 16:41:55 11/04/19 16 11/05/2015 pap, IG + HPV, cervi alon specimen adequacy: FORD Gambino SATIS FACTO RY FOR EVALU ATION . ENDOC ERVIC AL AND/O R SQUAM OUS METAP LASTI C CELLS (ENDO CERVI ALON COMPO NENT) ARE PRESE NT. Not Available [facility] ([facility]) [address] [place], [address], 11/07/2015 16:41:55 11/04/19 16 11/05/2015 pap, IG + HPV, cervi alon clinician provided ICD10: FORD Gambino Z01.4 19 Not Available [facility] ([facility]) [address] [place], [address], 11/07/2015 16:41:55 11/04/19 16 11/05/2015 pap, IG + HPV, cervi alon performed by: FORD GIVENS , CYTOT KEYANA Gambino (ASCP ) Not Available [facility] ([facility]) [address] [place], [address], 11/07/2015 16:41:55 11/04/19 16 11/05/2015 pap, IG + HPV, cervi alon . . Not Available [facility] ([facility]) [address] [place], [address], 11/07/2015 16:41:55 11/04/19 16 11/05/2015 pap, IG [...] TS DO OCCUR . Not Available [facility] ([facility]) [address] [place], [address], 11/07/2015 16:41:55 11/04/19 16 11/05/2015 pap, IG + HPV, cervi alon test methodology: COMMEN T THIS LIQUI D BASED THINP REP(R ) PAP TEST WAS SCREE NELLY WITH THE USE OF AN IMAGE GUIDE Diana Umana Not Available [facility] ([facility]) [address] [facility], [place], [address], 11/07/2015 16:41:55 11/04/19 16 11/07/2015 pap, IG + HPV, cervi alon HPV aptima NEGATI VE negati ve THIS TEST DETEC TS FOURT EEN HIGH- RISK HPV TYPES (16/1 8/31/ 33/35 /39/4 5/ 51/52 /56/5 8/59/ 66/68 ) WITHO UT DIFFE RENTI ATION . Not Available [facility] ([facility]) [address] [place], [address], 11/07/2015 16:41:55 11/04/19 16 11/06/2015 bacte rial vagin osis + vagin itis panel , vagin al trich vag by MANJIT NEGATI VE negati ve Not Available [facility] ([facility]) [address] [place], [address], 11/08/2015 06:11:53 11/04/19 16 11/07/2015 bacte rial vagin osis + vagin itis panel , vagin al atopobium vaginae LOW - 0 score Not Available [facility] ([facility]) [address] [place], [address], 11/08/2015 06:11:53 11/04/19 16 11/07/2015 bacte rial vagin osis + vagin itis panel , vagin al bvab 2 LOW - 0 score Not Available [facility] ([facility]) [address] [place], [address], 11/08/2015 06:11:53 11/04/19 16 11/07/2015 bacte rial [...] IS NOT NECES DARÍO. Not Available [facility] ([facility]) [address] [facility], [place], [address], 11/08/2015 06:11:53 11/04/19 16 11/07/2015 bacte rial vagin osis + vagin itis panel , vagin al kathy albicans, MANJIT NEGATI VE negati ve Not Available [facility] ([facility]) [address] [facility], [place], [address], 11/08/2015 06:11:53 11/04/19 16 11/07/2015 bacte rial [...] TO FLUCO NAZOL E. Not Available [facility] ([facility]) [address] [place], [address], 11/08/2015 06:11:53 11/04/19 16 11/07/2015 bacte rial vagin osis + vagin itis panel , vagin al chlamydia trachomatis, MANJIT NEGATI VE negati ve Not Available [facility] ([facility]) [address] [place], [address], 11/08/2015 06:11:53 11/04/19 16 11/07/2015 bacte rial vagin osis + vagin itis panel , vagin al neisseria gonorrhoeae, MANJIT NEGATI VE negati ve Not Available [facility] ([facility]) [address] [place], [address], 11/08/2015 06:11:53 11/04/19 16 11/07/2015 STI panel akthy albicans, MANJIT TNP DUPLI CLAUDIA PROCE DURE ORDER ED. Not Available [facility] ([facility]) [address] [place], [address], 11/08/2015 06:11:54 11/04/19 16 11/07/2015 STI panel kathy glabrata, MANJIT TNP DUPLI CLAUDIA PROCE DURE ORDER ED. Not Available [facility] ([facility]) [address] [facility], [place], [address], 11/08/2015 06:11:54 11/04/19 16 11/07/2015 STI panel kathy tropicalis, MANJIT NEGATI VE negati ve Not Available [facility] ([facility]) [address] [place], [address], 11/08/2015 06:11:54 11/04/19 16 11/07/2015 STI panel kathy parapsilosis , MANJIT NEGATI VE negati ve Not Available [facility] ([facility]) [address] [facility], [place], [address], 11/08/2015 06:11:54 11/04/19 16 11/07/2015 STI panel kathy lusitaniae, MANJIT NEGATI VE negati ve Not Available [facility] ([facility]) [address] [place], [address], 11/08/2015 06:11:54 11/04/19 16 11/07/2015 STI panel [...] IS NOT NECES DARÍO. Not Available [facility] ([facility]) [address] [facility], [place], [address], 11/08/2015 06:11:54 11/04/19 16 11/06/2015 HSV (1+2) DNA, qual, PCR, unspe cifie d speci men hsv 1 MANJIT NEGATI VE negati ve Not Available [facility] ([facility]) [address] [place], [address], 11/08/2015 06:11:54 11/04/19 16 11/06/2015 HSV (1+2) DNA, qual, PCR, unspe cifie d speci men hsv 2 MANJIT NEGATI VE negati ve Not Available [facility] ([facility]) [address] [place], [address], 11/08/2015 06:11:54 12/04/19 16 12/04/2015 yfn (risk [...] EZIO ON SURGE RY. Not Available [facility] ([facility]) [address] [place], [address], 12/06/2015 16:25:24 12/04/19 16 12/04/2015 yfn (risk [...] EZIO ON SURGE RY. Not Available [facility] ([facility]) [address] [place], [address], 12/06/2015 16:25:24 12/04/19 16 12/04/2015 yfn (risk [...] FINDI NG MALIG EZIO ON SURGE RY. FYN IS INDIC ATED FOR WOMEN WHO MEET [...] DIAGN OSTIC ASSAY . Not Available [facility] ([facility]) [address] [place], [address], 12/06/2015 16:25:24 12/04/19 16 12/06/2015 yfn (risk of ovari an malig ezio algor ithm score ), serum (lizzie enopa usal) cancer antigen 125 (Ca125) 16.6 U/mL 0.0-35 .0 ABBOT T CMIA METHO DOLOG Y Not Available [facility] ([facility]) [address] [facility], [place], [address], 12/06/2015 16:25:24 12/04/19 16 12/06/2015 yfn (risk of ovari an malig ezio algor ithm score ), serum (lizzie enopa usal) he4 42 pmol/ L 0-150 FUJIR EBIO EIA METHO DOLOG Y CA125 VALUE S OBTAI NELLY WITH DIFFE RENT ASSAY METHO DS OR KITS CANNO T BE USED INTER LARSON EABLY . Not Available [facility] ([facility]) [address] [facility], [place], [address], 12/06/2015 16:25:24 12/04/19 16 12/06/2015 yfn (risk of ovari an malig ezio algor ithm score ), serum (lizzie enopa usal) premenopausa l yfn 0.51 see below Not Available [facility] ([facility]) [address] [place], [address], 12/06/2015 16:25:24 12/04/19 16 12/06/2015 yfn (risk of ovari an malig ezio algor ithm score ), serum (lizzie enopa usal) postmenopaus al yfn 1.05 see below Not Available [facility] ([facility]) [address] [facility], [place], [address], 12/06/2015 16:25:24 05/13/20 16 05/15/2016 bacte rial vagin osis + vagin itis panel , vagin al trich vag by MANJIT NEGATI VE negati ve Not Available [facility] ([facility]) [address] [facility], [place], [address], 05/17/2016 06:04:50 05/13/20 16 05/15/2016 bacte rial vagin osis + vagin itis panel , vagin al chlamydia trachomatis, MANJIT NEGATI VE negati ve Not Available [facility] ([facility]) [address] [facility], [place], [address], 05/17/2016 06:04:50 05/13/20 16 05/15/2016 bacte rial vagin osis + vagin itis panel , vagin al neisseria gonorrhoeae, MANJIT NEGATI VE negati ve Not Available [facility] ([facility]) [address] [place], [address], 05/17/2016 06:04:50 05/13/20 16 05/16/2016 bacte rial vagin osis + vagin itis panel , vagin al kathy albicans, MANJIT NEGATI VE negati ve Not Available [facility] ([facility]) [address] [place], [address], 05/17/2016 06:04:50 05/13/20 16 05/16/2016 bacte rial [...] IS NOT NECES DARÍO. Not Available [facility] ([facility]) [address] [facility], [place], [address], 05/17/2016 06:04:50 05/13/20 16 05/17/2016 bacte rial vagin osis + vagin itis panel , vagin al atopobium vaginae LOW - 0 score Not Available [facility] ([facility]) [address] [facility], [place], [address], 05/17/2016 06:04:50 05/13/20 16 05/17/2016 bacte rial vagin osis + vagin itis panel , vagin al bvab 2 LOW - 0 score Not Available [facility] ([facility]) [address] [facility], [place], [address], 05/17/2016 06:04:50 05/13/20 16 05/17/2016 bacte rial [...] E DANIELA CTERI STICS DETER MINED BY [employer]. IT HAS NOT BEEN CLEAR ED OR APPRO KARSON BY THE FOOD AND DRUG ADMIN ISTRA TION. THE FDA HAS DETER MINED THAT SUCH CLEAR ANCE OR APPRO GABRIELLA IS NOT NECES DARÍO. Not Available [facility] ([facility]) [address] [facility], [place], [address], 05/17/2016 06:04:50 12/13/19 15 12/12/2014 ultra sound , pelvi c trans abdom inal No observ ation record ed. [facility] (Imaging) [address] [place], [address], 12/20/2014 19:01:30 09/04/20 15 09/02/2015 MAMMO , diagn ostic , digit al, bilat eral No observ ation record ed. [email or web address] [facility] [address], [place], [address], 05/13/2016 13:15:22 12/03/19 16 11/04/2015 CT, abdom en + pelvi s, w/ contr ast No observ ation record ed. [address] [facility] [address] [facility], [place], [address], 05/13/2016 16:18:12 12/06/19 16 12/06/2015 ultra sound , pelvi c trans abdom inal & trans vagin al No observ ation record ed. [address] ([employer]) [address] [place], [address], 05/13/2016 16:18:12 05/15/20 16 05/15/2016 US, trans vagin al No observ ation record ed. [email or web address] [place] [address] [address] [place], [address], 06/02/2016 09:44:41 Result Notes None recorded. Problems Name Problem SNOMED Code Status Onset Date Resolution Date Notes Provider Name and Address Organization Details Recorded Time Endometriosi s of uterus 45362210 Active Cosme Gloria null, [place] - [facility] 6 13:25:11 Menopausal syndrome 907278219 Active Valerie Quiroz MD Attn: Accounting, [address] [facility], [place], [address], [facility] - [facility] 6 18:44:51 Dermatophyto sis of the body Active Valerie Quiroz MD Attn: Accounting, [address], [place], [address] [place] [address], [place] - [facility] 6 18:44:51 Candidiasis 41073384 Active Valerie Quiroz MD Attn: Accounting, [address], [place], [address] [place] [address], [facility] - [facility] 6 18:44:51 Headache 62836514 Active Valerie Quiroz MD Attn: Accounting, [address], [place], [address] [place] [address], [place] - [facility] 6 18:44:51 Irritable bowel syndrome 57230942 Active Valerie Quiroz MD Attn: Accounting, [address], [place], [address] [place] [address], [facility] - [facility] 6 18:44:51 Left sided abdominal pain 749205567 Active Valerie Quiroz MD Attn: Accounting, [address], [place], [address] [place] [address], [facility] - [facility] 6 18:44:51 Chronic pelvic pain of female 235544034 Active Natanael Valentino null, [place] - [facility] 6 10:54:30 Vaginitis 62045654 Active Valerie Quiroz MD Attn: Accounting, [address], [place], [address] [place] [address], [place] - [facility] 6 18:44:51 Uterine leiomyoma 95509608 Active Cosme Juani null, [place] - [facility] 6 13:25:11 Endometrium thickened 266998459 Active Cosme Juani null, [place] - [facility] 13:25:11 Problem Notes None recorded. Procedures Surgical History Date Name Laterality Status Provider Name and Address Organization Details Recorded Time 11/04/19 16 Date of Last Pap Smear completed Laure Pedraza [place] - [facility] 05/13/2016 15:06:51 09/13/19 09 Cholecystectomy completed Brenda Van MA [place] - [facility] 10/30/2014 10:26:54 09/13/19 09 Dilation and Curettage completed Brenda Van MA [facility] [address] 12/10/2014 12:17:22 12/21/19 08 Caesarean Section completed Laure Pedraza MA [facility] 12/20/2014 15:28:58 09/13/19 03 Orthopedic Surgery completed Brenda Van MA [facility] 12/10/2014 12:17:22 09/13/19 03 Breast Surgery completed Brenda Van MA [facility] 12/10/2014 12:23:51 Laparoscopy completed Brenda Van MA [facility] 12/10/2014 12:17:22 Imaging Results None recorded. Procedure Notes None recorded. Medical Equipment None Reported. Allergies Allergen ID Allergen Name Allergen Category Reaction Reaction Severity Criticality Documentation Date Start Date Code Code System Note Provider Name and Address Organization Details Recorded Time 20182 codeine medicatio n itching moderate Not available 10/30/2014 2670 RxNorm rash Brenda Van MA null, [facility] [facility] 5 12:14:39 Medications Name Sig Start Date [...] Details Last Updated DateTime 11/04/2015 177.8 cm 24671.28 926 g 28.4 kg/m2 130 mm[Hg] 92 mm[Hg] Rebecca Slater MA [facility] 6 15:13:22 Date Recorded Body height Body mass index (BMI) Body weight Systolic blood pressure Diastolic blood pressure Provider Name and Address Organization Details Last Updated DateTime 12/20/2014 177.8 cm 28.7 kg/m2 57422.47 4 g 124 mm[Hg] 88 mm[Hg] Laure Pedraza MA [facility] 5 15:31:11 Date Recorded Body weight Body height Body mass index (BMI) Systolic blood pressure Diastolic blood pressure Provider Name and Address Organization Details Last Updated DateTime 05/13/2016 60625.88 163 g 177.8 cm 28.6 kg/m2 128 mm[Hg] 86 mm[Hg] Laure Pedraza MA [facility] 6 15:05:42 Date Recorded Body height Body mass index (BMI) Body weight Systolic blood pressure Diastolic blood pressure Provider Name and Address Organization Details Last Updated DateTime 06/03/2016 177.8 cm 28.7 kg/m2 66471.47 4 g 118 mm[Hg] 82 mm[Hg] Rebecca Slater MA [facility] 6 10:36:57 Date Recorded Body height Body weight Body mass index (BMI) Systolic blood pressure Diastolic blood pressure Provider Name and Address Organization Details Last Updated DateTime 06/10/2016 177.8 cm 93133.88 163 g 28.6 kg/m2 130 mm[Hg] 92 mm[Hg] Rebecca Slater MA [facility] 6 12:34:41 Social History Question Answer Notes LastModified by [employer] Details LastModified Time Tobacco Smoking Status Never Smoker Brenda Van MA [facility], [facility] 10/30/2014 10:26:55 Do You Have An Advance Directive? No [email or web address] Information not available 10/30/2014 Is Blood Transfusion Acceptable In An Emergency? Yes [email or web address] Information not available 10/30/2014 What Is Your Level Of Caffeine Consumption? None [email or web address] Information not available 10/30/2014 How Much Tobacco Do You Chew? None [email or web address] Information not available 10/30/2014 What Type Of Diet Are You Following? REGULAR [email or web address] Information not available 10/30/2014 Education 4 Year College [email or web address] Information not available 10/30/2014 Live Alone Or With Others? With Others [email or web address] Information not available 10/30/2014 How Many Children Do You Have? 1 Information not available 10/30/2014 Performs Monthly Self-breast Exam? Yes [email or web address] Information no t available 10/30/2014 Do You Use Protection During Sex? Usually [email or web address] Information not available 10/30/2014 What Is Your Relationship Status? [email or web address] Information not available 10/30/2014 Seat Belts Used Routinely Yes [email or web address] Information not available 10/30/2014 Are You Sexually Active? Yes [email or web address] Information not available 10/30/2014 General Stress Level High [email or web address] Information not available 10/30/2014 Do You Use Sunscreen Routinely? Yes Information not available 10/30/2014 Sex: Unknown Functional Status Question Answer Note LastModified by [employer] Details LastModified Time What is your level of alcohol consumption? None [email or web address] Information not available 10/30/2014 Are you currently employed? 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 Occasional Information not available 10/30/2014 Mental Status None recorded. Family History Relationship Description Onset Age of this Age Resolved Age Notes LastModified by Organization Details LastModified Time Mother Malignant tumor of breast 75 Not available 2015 10:41:47 Medical History Condition Response Coronary Artery Disease N Blood Diseases N Kidney Cyst N Hyperthyroidism N Blood Transfusion N MRSA N Blood disorders N Emphysema N COPD N Blood Clots N Depression N Pneumonia N Peripheral Arterial Disease N Premature N Edema N TIA N Headaches/Migraines N Anxiety Disorder N Obesity N Infertility N Polyps N Acid Reflux (GERD) N Hematuria N Stroke N Neck Injury N Polio N Hospital Admission other than Y Neurologic Disorder N Other Sleep Disorders N Rheumatoid Arthritis N Fibromyalgia N Abdominal Aortic Aneurysm Repair N Kidney Disease N Heart Conditions N Heart Disease/Heart Problems N Hospitalizations Y Brain Tumors N Acne N Eating Disorder N Skin Problems N Constipation N Meningitis N Tuberculosis N Cerebral Palsy N Myocardial Infarction N Asthma N Substance Abuse N Peripheral Vascular Disease N Vertigo N Sleep Disorder N Cirrhosis N Pulmonary Embolism N Chicken Pox N Flomax Use Past or Present N Hematologic Disease N Anxiety/Depression N Thyroid Disease N Colon Cancer N Glaucoma N Lung Disease N Developmental or Behavioral Disorders N Bipolar N Pacemaker N Diverticulitis/Diverticulosis Y Anesthesia Complications N Orthopedic Problems N Orthotics N Head Injury/Concussion N Congenital Anomalies N Caicedo Bite N Chronic Kidney Disease N Endometriosis N Liver Disease N Dialysis N Schizophrenia N Speech Delay N Chronic Obstructive Pulmonary Disease N Parkinson's Disease N Thyroid Problems N GI Problems Y Developmental Delay N Anemia N Immune System Disorder N Multiple Sclerosis N Colon Polyps N Heart Attack ([place]) N Diabetes N Cardiomyopathy N Blood Transfusions N Heart Problems/Murmur N Eye Trauma N Congestive Heart Failure (CHF) N Valvular Heart Disease N Hyperlipidemia N Double Vision N Abuse/Domestic Violence N Hepatitis B N Lupus N Epilepsy/Seizures N Reflux/GERD N Aneurysm N Bronchitis N Heart Disease N Hypertension N Pre-Eclampsia N Heart Failure N Other N Gout [...] N Kidney Failure N Ocular trauma N Dementia N Diverticulitis N Sleep Apnea N Mental Problems N [...] SNOMED-CT Code Diagnosis ICD10 Code Diagnosis Note [id number] MD Liz Long (BORDER INSPECTOR) [address] [place] [address] [phone] [id number] 10/30/2014 09:49:37 10/30/2014 10:56:31 Gynecologic examination [id number] 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 [id number] MD Liz Long (BORDER INSPECTOR) [address] [place] [address] [phone] 12/10/2014 11:20:55 12/10/2014 13:01:08 Gynecologic examination 64253469 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 135095738 Streptococcus carrier 449184429 Endometrio sis of uterus 50599428 [id number] [facility] (BORDER INSPECTOR[facility] [address] [place] [address] [phone] 12/20/2014 14:54:18 12/23/2014 09:31:47 Streptococcus carrier [id number] Menopausal syndrome 673140470 Dermatophy tosis of the body 789451403 Candidiasis 78393312 [id number] Cosme Gloria MD [facility] (BORDER INSPECTOR) [address] [place] [address] [phone] 0 11/04/2015 14:31:13 11/04/2015 17:25:17 Gynecologic examination 37726489 Z01.419 Irritable bowel syndrome 64994659 K58.9 Menopausal syndrome 1237 31050 N95.9 Colitis 70516896 K52.9 [id number] MD [facility] (BORDER INSPECTOR) [address] [place] [address] [phone] 0 05/13/2016 13:52:53 05/14/2016 10:32:25 Candidiasis 26777968 B37.9 Chronic pe lvic pain of female 151505445 R10.2 Vaginitis 30109174 N76.0 [id number] Valerie Quiroz MD [facility] (BORDER INSPECTOR) [address] [place] [address] [phone] 0 06/03/2016 09:47:51 06/05/2016 11:46:20 Uterine leiomyoma 67624123 D25.9 Endometrium thickened 44 6943468 R93.8 [id number] MD [facility] (BORDER INSPECTOR) [address] [place] [address] [phone] 0 06/10/2016 11:13:23 06/11/2016 17:50:59 Endometrium thickened 746595163 R93.8 Chronic pe lvic pain of female 254703535 R10.2 Uterine leiomyoma 990273 05 D25.9 Health Concerns Section Related Observation LastModified by Organization Detai ls LastModified Time None Recorded Concern Status LastModified by Organization Details LastModified Time None Recorded Advance Directives Directive N: Payers Encounter Date Sequence Insurance Name Policy Number Policy Mohamud Covered Member ID Mohamud Member ID Guarantor Name 12/20/2014 1 [facility] Alana Olguin [id number] Alana Olguin 11/04/2015 1 [employer] [id number] Catrachito Olguin Jr [id number] Alana Olguin 05/13/2016 1 [employer] [id number] Catrachito Olguin Jr [id number] Alana Olguin 06/03/2016 1 [employer] [id number] Catrachito Olguin Jr [id number] Alana Olguin 06/10/2016 1 [place] [id number] Catrachito Olguin Jr [id number] Alana Olguin Notes Date Note Type [...] Followed with yearly pap smears Cosme blum [place] Tay [facility] 11/04/2015 17:15:28 06/03/2016 text/html HERE FOR TEST RESULTS. She said she had an episode of post menopausal bleeding 2 years ago and endometrial biopsy was negative as per patient. Denies any bleeding since then Valerie Quiroz MD Attn: Accounting,[address] [place], [address], [facility] 06/03/2016 18:49:56 06/10/2016 text/html Presenting for consultation with Dr. Gloria, Re: endometrial thickening and pelvic pain. I am standing in for Dr. Gloria as he was called away for Emergency. Natanael Chicho blum [facility] [address] 06/11/2016 10:54:34 OBGyn Episode Ob Episode Information Episode Created Date Number of Fetuses Patient Bloodtype Patient rh Status Prepregnancy Weight lbs Domestic Partner Domestic Partner Phone Father Name Vending Supervisor Status 10/30/19 15 1 CLOSED Fetus Data First Name Last Name Admitted to NICU Weight (g) Sex Living Outcome Pediatric Complications Fetus ID Race Codes Race Delivery Type 3628.73 6 F Full Term [id number] Ole Calculation Initial Ole Date Initial Exam [...] Tubal Sterilization Discharge Date Comments 8 Regional-Sp inal Su Discharge Information Feeding Method Contraceptive Method Maternal HG B and HCT Levels
--- OUTSIDE RECORDS SUMMARY | 2025-02-08 02:21 | XMS_ITS | Continuity of Care Document ---
Author Organization [facility] Address [address] [place] [address] Phone Care Team Providers Care Education Site Manager Name Role Phone Kurtz OD, Cosme Unavailable Unavailable Advance Directives Directive Yes / No Effective Date File Name No Information Encounters Encounter Description Practice Location Reason(s) For Visit Diagnoses Date Provider Providers Copied on Encounter [facility], [address], [place], [place], [id number], [place] tel:[phone] [facility] No Information Cay[place]-2 7-200 6 Kurtz OD Cosme. [address] , [address], [place], [address], [place]. tel:[phone] Family History Family Member Type Diagnosis Age At Onset No Information Payers Payer name Insurance type Covered alliance party ID Authoriza tion(s) [facility] Commercial CI [id number] Social History Type Description Quantity Date Captured [...]
--- OUTSIDE RECORDS SUMMARY | 2025-02-08 02:21 | XMS_ITS | Encounter Summary ---
Author Organization [facility] Address [address] [place] [address] Care Team Providers Care Special Crimes Investigator Name Role Phone Loni Marks Primary Care Pr ovider Reason for Visit * Reason Onset Date Comments Future Appointment 12/12/2018 Encounter Details Date Type Department Care Team (Late st Contact Info) Description 12/12/2018 Telephone [facility] [address] [place] [address] Kyle Chanel Jr., MD [address] [place] [address] Future Appointment Social History Tobacco Use Types Packs/Day Years Used Date Smoking Tobacco: Never Assessed Comments Unknown Sex and Gender Information Value Date Recorded Sex Assigned at Not on file 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 Gender Identity Not on file Sexual Orientation Not on file documented as of this encounter Miscellaneous Notes * Telephone Encounter - Yue Vallejo - 12/12/2018 2:21 PM CDT PT would like for someone to give her a call about appointment tomorrow regarding if she needs results for her ct scan CB: [phone] documented in this encounter Plan of Treatment Not on file documented as of this encounter Visit Diagnoses Not on filedocumented in this encounter Care Teams Special Crimes Investigator Relationship Specialty Start Date End Date Loni Marks PA [address] [place] [address] PCP - General 11/29/18 documented as of this encounter
--- OUTSIDE RECORDS SUMMARY | 2025-02-08 02:21 | XMS_ITS | Clinical Summary ---
Author Organization [facility] Address [address] [place] [address] Care Team Providers Care Drier Attendant Name Role Phone Loni Marks Primary Care Pr ovider Source Comments [facility],non-owned Affiliates and Associated Physician Practices is amultiple site organization consisting of ambulatory clinics and hospital sitesin [place], [place], [place] and [place]. This disclosure is being madepursuant to the Care Everywhere program and may not contain all information available regarding this patient. 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
--- OUTSIDE RECORDS SUMMARY | 2025-02-08 02:21 | XMS_ITS | Encounter Summary ---
Author Organization [facility] Address [address] [place] [address] Phone Care Team Providers Care Rolling Down Machine Operator Name Role Phone Loni Duong Primary Care Pr ovider Encounter Details Date Type Department Care Team (Late st Contact Info) Description 12/06/2017 Orders Only [facility] ProviderVic MD [address] [place] [address] Social History Tobacco Use Types Packs/Day Years Used Date Smoking Tobacco: Never Comments Unknown Sex and Gender Information Value Date Recorded Sex Assigned at Not on file 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
[2025-02-08] MEDS: ACETAMINOPHEN 500 MG TABLET 1000 MG PO (06:35)
[2025-02-08] MEDS: LACTATED RINGERS 1,000 ML 30 ML IV CONT ×3 (07:00→11:21)
--- NOTE | 2025-02-08 07:02 | P.PNAN_ITS ---
Anes - Initial Pre Proc Eval Procedure: Operation Date: 02/08/25 07:30 Proposed Procedures p Right Total Hip Arthroplasty Anterior Approach - Jersey Garay MD Date/Time: 02/08/25 07:02 Surgeon: Jersey Garay MD Pre Op Diagnosis: oa right hip Patient Data Age: 59 Gender: F Height: 1.78 m Weight: 88.5 kg Last Vital Signs Temp 98.2 F 02/08/25 06:37 Pulse 82 02/08/25 06:37 Resp 16 02/08/25 06:37 BP 132/79 02/08/25 06:37 Pulse Ox 98 02/08/25 06:37 O2 Del Method Room Air 01/16/25 10:15 Allergies Allergy/AdvReac Type Severity Reaction Status Date / Time codeine Allergy Intermediate ITCHING/IRENE Verified 02/08/25 06:28 H Home Medications ?Medication ?Instructions ?Recorded ?Confirmed ?Type cholecalciferol (vitamin D3) 50 50 mcg PO DAILY 03/25/23 02/08/25 History mcg (2,000 unit) capsule (Vitamin D3) multivit with minerals-iron 18 1 tablet PO DAILY 03/25/23 02/08/25 History mg-folic ac 400 mcg-vit K 25 mcg tablet (Adults Multivitamin) omega 7-uwy-gdx-fish oil 120 1 cap PO DAILY 03/25/23 02/08/25 History mg-180 mg-500 mg capsule (Fish Oil) Saccharomyces boulardii 250 mg 250 mg PO BID 09/09/23 02/08/25 History capsule (Daily Probiotic (S. boulardii)) bile zmrsv-hzre-ycgi-phenolpth 1 tablet PO DAILY 09/09/23 02/08/25 History tablet Tribulis 1 g BYMOUTH DAILY 11/22/24 02/08/25 History magnesium-potassium 40 mg-40 mg 1 cap PO DAILY 11/22/24 02/08/25 History capsule mupirocin 2 % topical ointment 1 applic topical BID #22 grams 01/19/25 02/08/25 Rx Patient hx anesthesia problems: none Family hx anesthesia problems: none Results Review: All pre-operative results and documents have been reviewed as part of the pre- operative evaluation. [facility] Past Medical History Medical History Cavovarus deformity of foot, acquired Arthritis of foot, degenerative Endometriosis Interstitial cystitis (chronic) without hematuria Diverticulitis Surgical History Surgical History H/O knee surgery S/P breast lumpectomy H/O laparoscopy Delivery by section History of cholecystectomy Laparoscopic cholecystectomy 2010 at [facility] Breast cancer Status post lumpectomy and axillary dissection with postoperative radiation therapy and chemotherapy. Family History Family History Father Hypertension Mother Diabetes mellitus Disorder of thyroid Sibling No problems noted. Social History Social History Smoking status: Never smoker Alcohol intake: never Alcohol use details: only scant, Communion Substance use: never Substance use type: does not use Current Housing: Decline to Answer Concerned About Future Housing: Decline to Answer Difficulty Paying Gas/Electric Bills: Decline to Answer Difficulty Paying for Meds: Decline to Answer Currently Unemployed: Decline to Answer Education: Don't Know Difficulty w/ Childcare or Family Care: Decline to Answer Living arrangements: with family Additional living arrangements comments: and daughter Occupation/Education: unemployed Gender identity (if verbalized by the patient): Female Spiritual care concerns: No Anes - Eval Final PreProcedure Day of Procedure 02/08/25 07:02 Patient weight: overweight Lungs: normal air movement Airway: Mallampati scale class II Neurological: alert and oriented Last oral intake: >/= 8 hours ASA classification: II Emergent: no Anesthetic plan: proceed Anesthesia type and monitoring: general ETT and standard monitoring Results Review: All pre-operative results and documents have been reviewed as part of the pre- operative evaluation. Hx of breast ca approx 25 years ago. Pt overall good health. Pt had stress test 01/2025 nml, no ischemia, nml LVEF. Informed Consent: The patient's anesthetic plan and its attendant risks and benefits were disc ussed with the patient/family/POA. Questions were solicited and answers provided to the satisfaction of the patient/family/POA.
[2025-02-08] MEDS: VANCOMYCIN 1,250 MG/NS 250 ML BAG 166.67 MG IVPB (07:05)
[2025-02-08] MEDS: TRANEXAMIC ACID 1,000MG/ISO100 1,000 MG/100 ML BAG 200 MG IVPB (07:05)
--- NOTE | 2025-02-08 07:33 | WPDHPUPDATE1 ---
History and Physical Update Update Date/Time: 02/08/25 07:33 History and Physical has been reviewed, including an updated exam of the patient. There are NO changes in the patient's condition. Risks, benefits, and alternatives have been discussed and questions answered. Patient agrees to proceed with procedure.
--- NOTE | 2025-02-08 07:34 | WPDHPUPDATE1 ---
History and Physical Update Update Date/Time: 02/08/25 07:34 After further discussion , patient has decided that she WOULD like cortisone shot in left knee during surgery.
[2025-02-08] MEDS: ceFAZolin 2 GM/D5W 50 ML 2 GM/50 ML BAG IVPB ×2 (07:39→15:57)
[2025-02-08] MEDS: methylPREDNISolone ACETATE 80 MG/ML VIAL IM (08:00)
[2025-02-08] MEDS: SODIUM CHLORIDE 0.9% IV 38.7 ML, ROPivacaine HCL 1% 200 MG, KETOROLAC INJ (*BKC) 15 MG,... INFILTRATE (08:07)
[2025-02-08] MEDS: TRANEXAMIC ACID 1,000 MG/10 ML AMPUL 1000 MG IV PUSH (10:47)
[2025-02-08] MEDS: ceFAZolin SODIUM 1 GM VIAL 2 GM IV PUSH (10:47)
[2025-02-08] MEDS: KETOROLAC 15 MG/ML VIAL (*BKC) IV PUSH ×2 (10:47→18:11)
--- NOTE | 2025-02-08 11:08 | P.OP_ITS ---
Procedure Note - Detailed Date of Procedure 02/08/25 Pre-op Diagnosis oa right hip Post-op Diagnosis Same Procedure Performed Right total hip arthroplasty direct anterior approach Surgeon Jersey Garay MD Senior Gis Analyst Venkat Anesthesia General Description of Procedure Patient was brought to the operating room and general anesthesia was administered. She received 2 g of Ancef weight based vancomycin 1 g of TXA preoperatively. Padding applied to both feet. Boots applied SCDs applied and running during the procedure. She was transferred to the [facility] table in the right hip prepped draped usual fashion. A 4 in longitudinal incision was made starting 3 cm lateral to the ASIS. Dissection was carried down to the fascia over the tensor fascia marjorie which was exposed and longitudinally incised along its midportion. There was a tiny branch of lateral femoral circumflex nerve that crossed from anterior to posterior at the midportion incision that we were able to preserve during the procedure by keeping it retracted anteriorly. Interval between tensor fascia marjorie and rectus femoris developed. Crossing branches of ascending lateral femoral circumflex vessels were ligated with suture divided. There is a prominent ileocapsularis today on the anterior capsule and this was carefully elevated off the anterior capsule and retractor placed over the anteromedial capsule. The hip abducted internally rotated and the gluteus minimus elevated off the lateral capsule. Inverted T capsulotomy was performed and a femoral neck osteotomy made according to preoperative templating. The femoral head measured only 44 mm in diameter. Diffuse arthritic changes were noted in the femoral head and acetabulum. The labrum was mostly ossified, the residual labrum excised. Acetabulum was prepared reaming to the medial wall with a 40 mm Reamer and gradually reaming up to 47 mm which reach close the periphery. 48 mm Reamer reach the periphery and the 48 mm emphasis cup was chosen which gave us an excellent press fit and was seated fully at 40? of abduction and anatomy matching his anteversion taking into account the anterior superior and anterior acetabular osteophyte. Single screw placed in the ilium for fixation and a 36 inner diameter acetabular liner placed without difficulty. Anterior and anterior superior acetabular osteophyte was removed. The hip abducted externally rotated with the table hook in place and other than excising the portion of the conjoined tendon covering the medial saddle lateral to the femoral neck, no other releases were necessary as we had excellent exposure. The cancellous bone was a little bit soft. Canal Finders were employ and we broached to a size 5 which even when countersunk a little bit still had rotational play. The size 6 was tight. This was inserted to the level of the neck cut and intraoperative x-ray showed the we were a little bit proud from our preoperative plan. The broach was countersunk an additional 3 mm -4 mm and then we obtained fluoroscopic view of the pelvis which showed that we had restored leg lengths appropriately and offset was appropriate with the 1.5 head standard offset neck combination. Soft tissue tension was appropriate. Final calcar planing was performed and the size 6 broach confirmed to be snug on torsional stress. The size 6 standard offset Actis stem which seated with the collar resting on the planed femoral neck. There are no cracks on the calcar. We trialed again in the 1.5 again was appropriate. The 1.5 long ceramic by 36 mm diameter head was impacted onto the clean and dry trunnion after thorough irrigation wound. Hip was reduced soft tissue tension and stability reconf irmed. Fluoroscopic x-ray showed no radiographic complication. She received 2 additional g of Ancef 1 g of TXA. EBL was estimated as 450 cc and she received 125 cc of packed cells from the Cell Saver. Fascia was closed with running 1. Vicryl drain deep in the subcu skin closed with 2 subcutaneous Vicryl and glue. There were no complications she tolerated the procedure well was transferred pos top recovery room in good condition. [facility] Billing Surgery - Charge Forward: Surgery Billing (Right total hip replacement)
--- NOTE | 2025-02-08 11:32 | PM.OP ---
Procedure Note - Brief Procedure Note - Brief Date of procedure: 02/08/25 oa right hip Procedure performed: Right anterior total hip arthroplasty Surgeon: TYRA Ramos Findings: 59-year-old female underwent right anterior total hip arthroplasty on 02/08. I was involved procedure including positioning the patient on the OR table in 1st assisting through the time surgery. Total time spent was 3-1/2 hours
[2025-02-08] MEDS: fentaNYL CITRATE INJ (*CRX) 100 MCG/2 ML VIAL 25 MCG IV PUSH ×4 (12:32→13:38)
[2025-02-08] MEDS: ONDANSETRON INJ 4 MG/2 ML VIAL IV PUSH ×3 (14:19→21:45)
--- NOTE | 2025-02-08 14:35 | ADMGEN ---
This patient, Alana Olguin, was admitted to 3 [facility] Surg Room 330-02. Patient/family oriented to hospital policies and general routines including ID bracelet, bed and alarms, visiting hours, pain management, procedures, bathroom and other care routines, personal items, smoking policy, room service/diet, and visiting hours. Information on how to activate the Rapid Response Team has been discussed. Patient/Family are encouraged to report perceived risks to care and to ask questions if they do not understand what they are told or what they should do. received report from Erika.
[2025-02-08] MEDS: SODIUM CHLORIDE 0.9% IV 1,000 ML 125 ML IV CONT (14:42)
[2025-02-08] MEDS: ACETAMINOPHEN 325 MG TABLET 650 MG PO ×2 (14:43→20:47)
[2025-02-08] MEDS: VANCOMYCIN 1,000 MG/NS 250 ML 1,000 MG/250 ML BAG 125 MG IVPB (18:12)
[2025-02-08] MEDS: oxyCODONE HCL (*CRX) 2.5 MG TAB IR PO ×2 (18:15→20:48)
[2025-02-08] MEDS: FAMOTIDINE 20 MG TABLET PO (20:48)
[2025-02-09] MEDS: ACETAMINOPHEN 325 MG TABLET 650 MG PO ×4 (00:23→12:01)
[2025-02-09] MEDS: ceFAZolin 2 GM/D5W 50 ML 2 GM/50 ML BAG IVPB ×2 (00:23→08:28)
[2025-02-09] MEDS: KETOROLAC 15 MG/ML VIAL (*BKC) IV PUSH (00:23)
[2025-02-09] MEDS: oxyCODONE HCL (*CRX) 2.5 MG TAB IR PO ×4 (00:23→12:02)
[2025-02-09 03:30] VITALS: BP 126/74; PULSE 85; RESP 16; TEMP 36.7; O2SAT 98
[2025-02-09] MEDS: VANCOMYCIN 1,000 MG/NS 250 ML 1,000 MG/250 ML BAG 125 MG IVPB (06:03)
[2025-02-09 06:18] LABS: Basophils Percent Auto 0.2 % (0.2-1.2); Hematocrit 31.2 % (37.0-47.0); Hemoglobin 10.1 g/dL (12.0-15.0); Immature Granulocyte Absolute 0.04 K/mm3 (0.00-0.031); Immature Granulocyte Percent A 0.3 % (0-0.5); Lymphocytes Absolute Auto 0.96 K/mm3 (0.9-3.2); Lymphocytes Percent Auto 8.2 % (18.3-44.2); Mean Corpuscular HGB Conc 32.4 g/dl (32-36); Mean Corpuscular Hemoglobin 29.6 pg (26-34); Mean Corpuscular Volume 91.5 fl (80-100); Mean Platelet Volume 9.1 fl (7.4-10.4); Monocytes Absolute Auto 1.1 K/mm3 (0.1-0.6); Monocytes Percent Auto 9.7 % (2.6-8.5); Neutrophils Absolute Auto 9.6 K/mm3 (1.3-6.7); Neutrophils Percent Auto 81.6 % (45.5-73.1); Platelet Count Result 270 k/mm3 (150-375); Red Blood Count 3.41 M/mm3 (4.2-5.4); Red Cell Distribution Width 12.5 % (11.5-14.5); White Blood Count 11.7 K/mm3 (4.5-10.0)
[2025-02-09 06:29] LABS: Anion Gap 8 mmol/L (4-12); Blood Urea Nitrogen 14 mg/dL (7-17); Carbon Dioxide 24 mmol/L (22-30); Chloride 107 mmol/L (98-107); Estimated CRCL calculation 76 ml/min; Estimated Glomerular Filt Rate > 60; Glucose 117 mg/dL (65-110); Sodium 139 mmol/L (137-145)
[2025-02-09] MEDS: APIXABAN 2.5 MG TABLET PO (08:29)
[2025-02-09] MEDS: CELECOXIB 100 MG CAPSULE PO (08:29)
[2025-02-09] MEDS: polyethylene glycoL 3350 17 GM POWD.PACK PO (08:29)
[2025-02-09] MEDS: SENNA/DOCUSATE SODIUM TABLET 2 TAB PO (08:30)
[2025-02-09] MEDS: FAMOTIDINE 20 MG TABLET PO (08:30)
[2025-02-09] MEDS: CHOLECALCIFEROL (VITAMIN D3) 25 MCG (1,000 UNITS) TABLET 50 MCG PO (08:33)
--- NOTE | 2025-02-09 09:41 | PM.PNORT ---
Subjective Subjective Date/Time Seen: 02/09/25 09:41 Interval history: Postop day 1 patient is alert. She is afebrile vital signs are stable. Morning labs are noted. Hemoglobin is 10.1. Patient did have quite a bit and nausea yesterday after general anesthesia. This has improved overnight. At this point patient is doing well on the morning of postop day 1. Pain is well controlled. She is tolerating the pain medicine well. She has been up several times yesterday as well as overnight to the restroom. She is urinating well. Dressing is dry and intact. Drain is out. Neurovascularly she is intact. Overall patient is doing well. She will work with therapy this morning and then plan to discharge her home late this morning. Objective Data Vital Signs Vital Signs: Vital Signs - 24 hr 02/08/25 11:21 02/08/25 11:30 02/08/25 11:45 Temperature 97.7 F Pulse Rate 70 75 71 Respiratory Rate 12 12 11 L Blood Pressure 108/55 L 104/57 L 117/62 Pulse Oximetry 94 100 98 Oxygen Delivery Simple Face Mask Simple Face Mask Simple Face Mask Oxygen Flow Rate 8 8 8 Fraction of Inspired Oxygen 02/08/25 12:00 02/08/25 12:15 02/08/25 12:30 Temperature Pulse Rate 90 91 82 Respiratory Rate 15 13 16 Blood Pressure 153/88 H 172/91 H 159/85 H Pulse Oximetry 100 100 100 Oxygen Delivery Simple Face Mask Simple Face Mask Simple Face Mask Oxygen Flow Rate 8 8 8 Fraction of Inspired Oxygen 02/08/25 12:33 02/08/25 12:45 02/08/25 13:00 Temperature Pulse Rate 78 73 Respiratory Rate 12 13 Blood Pressure 166/76 H 155/79 H Pulse Oximetry 100 96 98 Oxygen Delivery Room Air Room Air Room Air Oxygen Flow Rate Fraction of Inspired Oxygen 02/08/25 13:15 02/08/25 13:30 02/08/25 14:00 Temperature 98.2 F 96 F L Pulse Rate 80 74 85 Respiratory Rate 12 13 16 Blood Pressure 139/79 157/66 H 144/81 H Pulse Oximetry 99 100 100 Oxygen Delivery Nasal Cannula Nasal Cannula Oxygen Flow Rate 2 2 Fraction of Inspired Oxygen 02/08/25 14:00 02/08/25 14:18 02/08/25 15:20 Temperature 96 F L 96.3 F L Pulse Rate 89 83 Respiratory Rate 16 16 Blood Pressure 141/73 H 135/68 Pulse Oximetry 100 100 Oxygen Delivery Room Air Oxygen Flow Rate Fraction of Inspired Oxygen 02/08/25 19:30 02/08/25 20:00 02/08/25 22:00 Temperature 98.1 F Pulse Rate 98 102 H Respiratory Rate 18 14 Blood Pressure 129/81 Pulse Oximetry 99 95 Oxygen Delivery Room Air Room Air Oxygen Flow Rate Fraction of Inspired Oxygen 21 02/08/25 23:30 02/09/25 03:30 02/09/25 08:35 Temperature 98.6 F 98.1 F Pulse Rate 97 85 Respiratory Rate 18 16 Blood Pressure 132/65 126/74 Pulse Oximetry 97 98 Oxygen Delivery Room Air Oxygen Flow Rate Fraction of Inspired Oxygen Intake/Output Intake/Output: Intake & Output 02/06/25 02/07/25 02/08/25 02/09/25 23:59 23:59 23:59 23:59 Intake Total 1890 1350 Output Total 0 20 Balance 1890 1330 Meds/Results Medications: Active Medications Generic Name Dose Route Start Last Admin Trade Name Freq PRN Reason Stop Dose Admin Acetaminophen 650 mg 02/08/25 14:30 02/09/25 08:29 Acetaminophen 325 Mg Tablet PO 650 mg Q4HR VLADISLAV Administration Apixaban 2.5 mg 02/09/25 09:00 02/09/25 08:29 Apixaban 2.5 Mg Tablet PO 2.5 mg Q12HR VLADISLAV Administration Celecoxib 100 mg 02/09/25 09:00 02/09/25 08:29 Celecoxib 100 Mg Capsule PO 100 mg DAILY VLADISLAV Administration Cephalexin HCl 500 mg 02/09/25 18:00 Cephalexin 500 Mg Capsule PO Q6HR VLADISLAV Famotidine 20 mg 02/08/25 21:00 02/09/25 08:30 Famotidine 20 Mg Tablet PO 20 mg Q12HR VLADISLAV Administration Hydromorphone HCl 0.5 mg 02/08/25 13:54 Hydromorphone Hcl Inj (*Crx) 2 Mg/Ml Vial IV PUSH Q2H PRN Breakthrough Pain Rated 4-6 or NPO Naloxone HCl 0.1 mg 02/08/25 13:45 Naloxone Hcl 0.4 Mg/Ml Vial IV PUSH Q2M PRN Opiate Reversal Ondansetron HCl 4 mg 02/08/25 13:45 02/08/25 21:45 Ondansetron Inj 4 Mg/2 Ml Vial IV PUSH 4 mg Q4H PRN Administration Nausea And Vomiting Oxycodone HCl 2.5 mg 02/08/25 13:45 02/09/25 08:32 Oxycodone Hcl (*Crx) 2.5 Mg Tab Ir PO 2.5 mg Q4HR VLADISLAV Administration Oxycodone HCl 2.5 mg 02/08/25 13:45 02/08/25 18:15 Oxycodone Hcl (*Crx) 2.5 Mg Tab Ir PO 2.5 mg Q4H PRN Administration Pain Rated 4-6 Polyethylene Glycol 17 gm 02/09/25 09:00 02/09/25 08:29 Polyethylene Glycol 3350 17 Gm Powd.Pack PO 17 gm QAM VLADISLAV Administration Senna/Docusate Sodium 2 tab 02/08/25 17:00 02/09/25 08:30 Senna/Docusate Sodium Tablet PO 2 tab BID VLADISLAV Administration Vitamin D 50 mcg 02/09/25 09:00 02/09/25 08:33 Cholecalciferol (Vitamin D3) 25 Mcg (1,000 Units) Tablet PO 50 mcg DAILY VLADISLAV Administration Radiology Results: ITS Impressions Hip/Pelvis X-Ray 02/08/25 14:01 Impression: Status post total right hip arthroplasty, without evidence of hardware complication. Intraoperative X-Ray 02/08/25 17:20 IMPRESSION: 1. Expected appearance during right total hip arthroplasty. Labs Labs: Laboratory Results - last 24 hr 02/09/25 05:39 WBC 11.7 H RBC 3.41 L Hgb 10.1 L D Hct 31.2 L MCV 91.5 MCH 29.6 MCHC 32.4 RDW 12.5 Plt Count 270 MPV 9.1 Immature Gran % (Auto) 0.3 Neut % (Auto) 81.6 H Lymph % (Auto) 8.2 L Butler % (Auto) 9.7 H Eos % (Auto) 0.0 Baso % (Auto) 0.2 Lymph # (Auto) 0.96 Butler # (Auto) 1.1 H Eos # (Auto) 0.0 Baso # (Auto) 0.0 Abs Immat Gran (auto) 0.04 H Absolute Neuts (auto) 9.6 H Absolute Nucleated RBC 0.000 Nucleated RBC % 0.0 Sodium 139 Potassium 4.0 Chloride 107 Carbon Dioxide 24 Anion Gap 8 BUN 14 Creatinine 0.74 Estim Creat Clear Calc 76 Estimated GFR > 60 Glucose 117 H Calcium 9.0
== END 2025-02-09 12:50 | disposition home or self-care (01) ==
LOC: ANHSURGERY 06:01 → ANH3MEDSUR 13:47
PROVIDERS: Physician Assistant Surgical; PCP Physician Assistant; Visit Provider Orthopaedic Surgery
PROC: (CPT 27130; principal; 2025-02-08 07:30)
PROC: (CPT 75710; 2025-02-08 07:30)
DX: M16.11 Unilateral primary osteoarthritis, right hip (principal)
CPT/HCPCS: 27130; 36415; 73502; 80048; 85025; 86850; 86900; 86901; 97110; 97116; 97161; 97165; 97530; 97535; 99199; A9270; C1713; C1776; J0171; J0690; J1010; J1100; J1171; J1200; J1885; J2003; J2250; J2270; J2371; J2405; J2704; J2795; J3010; J3370; J7030; J7120

== ENCOUNTER 2025-03-06 14:07 | Outpatient (CLI) | payer OTHER, SELFPAY ==
--- NOTE | 2025-03-06 14:29 | ECHO_ITS ---
Patient Info Name: Alana Olguin Age: 59 years : 1965 Gender: Female Ht: 70 in Wt: 185 lbs BSA: 2.05 m2 HR: 89 bpm BP: 143 / 95 mmHg Heart Rhythm: Sinus Rhythm Technical Quality: Good Exam Date: 03/06/2025 2:34 PM Patient Status: O Admit Date: 03/06/2025 Exam Type: CA echo doppler color flow Complete two-dimensional, color flow and Doppler transthoracic echocardiogram is performed. Proofer Prepress: Emilie Chavez Attending Provider: Telly Winters DO Summary 1. Complete two-dimensional, color flow and Doppler transthoracic echocardiogram is performed. 2. Left ventricular chamber dimension is normal. 3. Left ventricular systolic function is normal, estimated at 65-70. 4. The left ventricular diastolic function is grade I diastolic dysfunction. 5. E/e' 9 is minimally elevated. 6. There is trace pulmonic regurgitation. Left Ventricle E/e' 9 is minimally elevated. Left ventricular chamber dimension is normal. Left ventricular systolic function is normal, estimated at 65-70. The left ventricular diastolic function is grade I diastolic dysfunction. Right Ventricle Right ventricular chamber dimension is normal. Right ventricular systolic function is normal. Left Atria Left atrial chamber dimension is normal. Right Atria Right atrial chamber dimension is normal. Aortic Valve The aortic valve is trileaflet. There is no aortic valve stenosis. There is no aortic valve regurgitation. Pulmonic Valve There is trace pulmonic regurgitation. Mitral Valve There is no mitral valve stenosis. There is no mitral valve regurgitation. Tricuspid Valve There is no tricuspid valve regurgitation. Pericardium/Pleural There is no pericardial effusion. Inferior Vena Cava Normal inferior vena cava with >50% collapse upon inspiration consistent with normal right atrial pressure, 5 mmHg. Aorta The aortic root size at the sinus of Valsalva is normal. Left Ventricular Outflow Tract Name Value Normal LVOT 2D LVOT Diameter 2.1 cm LVOT Doppler LVOT Peak Velocity 116 cm/s LVOT Peak Gradient 5 mmHg LVOT Mean Gradient 3 mmHg LVOT VTI 21 cm LVOT VTI/AV VTI Ratio 0.7 LVOT Stroke Volume 70 ml LVOT CO 5.6 l/min LVOT CI 2.8 l/min/m2 Pulmonic Valve Name Value Normal RVOT Doppler RVOT Peak Velocity 70 cm/s RVOT Peak Gradient 2 mmHg PV Doppler PV Peak Velocity 94 cm/s PV Peak Gradient 4 mmHg Mitral Valve Name Value Normal MV Diastolic Function MV E Peak Velocity 58 cm/s MV A Peak Velocity 91 cm/s MV E/A 0.6 MV Decel Time (PW) 181 ms MV Annular TDI MV E/e' (Septal) 12.8 MV E/e' (Lateral) 7.0 MV E/e' (Average) 9.9 Tricuspid Valve Name Value Normal Estimated PAP/RSVP RA Pressure 5 mmHg <=5 TV Annular TDI TV Lateral Kate s' Velocity 9.9 cm/s >=9.5 Aorta Name Value Normal Ascending Aorta Ao Root Diameter (MM) 3.0 cm Ao Root Diam Index (MM) 1.5 cm/m2 Aortic Valve Name Value Normal AV Doppler AV Peak Velocity 144 cm/s AV Peak Gradient 8 mmHg AV Mean Gradient 5 mmHg AV VTI 28 cm AV Area (Cont Eq VTI) 2.5 cm2 >=3.0 AV Area (Cont Eq Aneesh) 2.7 cm2 AV DI (Aneesh) 0.81 AV Regurgitation 2D LVOT Area 3.3 cm2 Ventricles Name Value Normal LV Dimensions 2D/MM IVS Diastolic Thickness (2D) 1.1 cm 0.6-1.0 LVID Diastole (2D) 3.8 cm 3.8-5.2 LVIW Diastolic Thickness (2D) 1.1 cm 0.6-0.9 LVID Systole (2D) 2.2 cm 2.2-3.5 LVOT Diameter 2.1 cm LV Mass (2D Cubed) 134.43 g 67.00-162.00 LV Mass Index (2D Cubed) 66 g/m2 43-95 Relative Wall Thickness (2D) 0.56 <=0.42 LV Fractional Shortening/Ejection Fraction 2D/MM LV Fractional Shortening (2D) 41 % 27-45 LV EF (2D Teichholz) 73 % LV Diastolic Volume (4C MOD) 63 ml LV EF (4C MOD) 80 % LV Diastolic Volume (2C MOD) 46 ml LV EF (2C MOD) 73 % LV Diastolic Volume (BP MOD) 54 ml 46-106 LV Diastolic Volume Index (BP MOD) 26 ml/m2 29-61 LV Systolic Volume (BP MOD) 13 ml 14-42 LV Systolic Volume Index (BP MOD) 6 ml/m2 8-24 LV EF (BP MOD) 77 % 54-74 LV Diastolic Length (4C) 7.9 cm LV Systolic Length (4C) 6.1 cm LV Stroke Volume (4C MOD) 50 ml Atria Name Value Normal LA Dimensions LA Dimension (MM) 4.0 cm 2.7-3.8 LA Volume (4C A-L) 46 ml LA Volume (BP A-L) 43 ml RA Dimensions RA Area (4C) 10.9 cm2 <=18.0 Report Signatures
== END 2025-03-06 14:08 | disposition home or self-care (01) ==
LOC: ANHCARD 14:08
PROVIDERS: PCP Physician Assistant; Visit Provider Internal Medicine Cardiovascular Disease
DX: R93.1 Abnormal findings on diagnostic imaging of heart and coronary circulation (principal); R07.9 Chest pain, unspecified
CPT/HCPCS: 93306

== ENCOUNTER 2025-04-20 08:30 | Emergency (ER) | payer OTHER, SELFPAY ==
--- NOTE | ~2025-04-20 | CT_ITS ---
EXAMINATION: CT abdomen pelvis w con DATE: 04/20/2025 09:54 INDICATION: Left lower quadrant and flank pain. TECHNIQUE: Computed tomography (CT) of the abdomen and pelvis was performed with 100 cc Omnipaque 350 intravenous contrast. The dose-length product was 536.17 mGy-cm. Automated exposure control and iterative reconstruction technique were employed. COMPARISON: CT dated 01/30/2025. FINDINGS: Lung bases unremarkable. No significant pleural or pericardial effusion. Heart size normal. There are dystrophic calcifications and possible surgical clips in the breasts bilaterally. Correlat e for surgical history. Fatty infiltration of the liver. 2.6 cm cyst caudal tip of the right hepatic lobe. There are cholecys tectomy changes with expected prominence of the intrahepatic and extrahepatic bile ducts. No obstruct ing stone or mass identified. The pancreas, adrenal glands and right kidney are unremarkable. There i s left renal atrophy. There is a right hip arthroplasty. No significant vascular abnormality. No lymp hadenopathy. No abnormal pelvic masses or fluid collections. Nonobstructive bowel pattern. Moderate l ower thoracic spondylosis. IMPRESSION: 1. No acute abdominal abnormality. Reviewed, dictated and finalized at location A.
--- OUTSIDE RECORDS SUMMARY | 2025-04-20 08:32 | XMS_ITS | Encounter Summary ---
Author Organization 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
--- OUTSIDE RECORDS SUMMARY | 2025-04-20 08:32 | XMS_ITS | Clinical Summary ---
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 Gender Identity Not on file Sexual Orientation Not on file Plan of Treatment Health Maintenance Due Date Last Done Comments Hepatitis C Virus (HCV) Screening 1965 TdaP Immunization 1965 Pap Smear 1985 Cervical Cancer Screening (CCS) 1994 HPV/Cotest 1994 Cologuard 2009 Colonoscopy 2009 Colorectal Cancer Screening 2009 Immunochemical Fecal Occult Blood 2009 Pneumococcal Immunization (5 0+ years) (1 of 1 - PCV) 2014 Zoster Immunization (1 of 2) 2014 SARS-COV-2 Immunization ( - 2023- season) 2024 Influenza Immunization (#1) 2025 Respiratory Syncytial Virus (RSV) Immunization (Adult) (1 - 1-dose 75+ series) 2039 Hepatitis B Immunization Aged Out No longer eligible based on patient's age to complete this topic Human Papillomavirus (HPV) Immunization Aged Out No longer eligible b ased on patient's age to complete this topic Meningococcal Immunization (ACWY) Aged Out No longer eligible based on patient's age to complete this topic Rotavirus Immunization Aged Out No lo nger eligible based on patient's age to complete this topic Insurance [facility] Care Teams Leasing Director Relationship Specialty Start Date End Date Loni Duong PA PCP - General Family Medicine 09/03/17
--- OUTSIDE RECORDS SUMMARY | 2025-04-20 08:32 | XMS_ITS | Clinical Summary ---
Author Organization [facility] Address [address] [place] [address] Care Team Providers Care Veterinary Anatomist Name Role Phone Loni Marks Primary Care Pr ovider Source Comments [facility],non-owned Affiliates and Associated Physician Practices is amultiple site organization consisting of ambulatory clinics and hospital sitesin [place], [place] and [place]. This disclosure is being madepursuant to the Care Everywhere program and may not contain all information available regarding this patient. 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 Gender Identity Not on file Sexual Orientation [...] 45-75) - COL ON CA SCREENING 1965 CT COLONOGRAPHY - COLON CA SCREENING 1965 FIT - COLON CA SCREENING 1965 FLEX SIG - COLON CA SCREENING 1965 LIPID TESTING 1965 MAMMOGRAM 1965 HIV SCREENING 1979 HEPATITIS C SCREENING 09/11/1982 DTAP/TDAP/TD VACCINES (1 - Tdap) 1983 PNEUMOCOCCAL VACCINE 50+ (1 of 1 - PCV) 2014 ZOSTER VACCINE (1 of 2) 2014 SCREENING FOR DIABETES 06/20/2019 COVID-19 VACCINE (1 - 2023-2 5 season) 2024 DEPRESSION SCREENING 09/13/2024 INFLUENZA VACCINE (#1) 2025 COLON MONITORING 06/13/2030 06/13/2020 COLONOSCOPY - COLON CA SCREENING 06/13/2030 06/13/20 [...] this topic Insurance ANTHEM ANTHEM Care Teams Veterinary Anatomist Relationship Specialty Start Date End Date Loni Marks PA [address] [place] [address] PCP - General 11/29/18
--- OUTSIDE RECORDS SUMMARY | 2025-04-20 08:32 | XMS_ITS | Encounter Summary ---
Author Organization [facility] Address [address] [place] [address] Phone Care Team Providers Care Pump Erector Helper Name Role Phone Loni Duong Primary Care Pr ovider Encounter Details Date Type Department Care Team (Late st Contact Info) Description 12/06/[address] 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
--- OUTSIDE RECORDS SUMMARY | 2025-04-20 08:32 | XMS_ITS | Encounter Summary ---
Author Organization [facility] Address [address] [place] [address] Care Team Providers Care Glue Size Machine Operator Name Role Phone Loni Marks Primary Care Pr ovider Reason for Visit * Reason Onset Date Comments Future Appointment 12/12/2018 Encounter Details Date Type Department Care Team (Late st Contact Info) Description 12/12/[address] 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 Gender Identity Not on file Sexual Orientation Not on file documented as of this encounter Miscellaneous Notes * Telephone Encounter - Yue Vallejo - 12/12/2018 2:21 PM CDT PT would like for someone to give her a call about appointment tomorrow regarding if she needs results for her ct scan CB: [phone] documented in this encounter Plan of Treatment Not on file documented as of this encounter Visit Diagnoses Not on filedocumented in this encounter Care Teams Glue Size Machine Operator Relationship Specialty Start Date End Date Loni Marks PA [address] [place] [address] PCP - General 11/29/18 documented as of this encounter
--- OUTSIDE RECORDS SUMMARY | 2025-04-20 08:32 | XMS_ITS | Continuity of Care Document ---
Author Organization [facility] Address [address] [place] [address] Phone Care Team Providers Care Mobility Architect Manager Name Role Phone Kurtz OD, Cosme Unavailable Unavailable Advance Directives Directive Yes / No Effective Date File Name No Information Encounters Encounter Description Practice Location Reason(s) For Visit Diagnoses Date Provider Providers Copied on Encounter [facility], [address], [place], [place], [id number], [place] tel:[phone] [facility] No Information Cay[place]-2 7-200 6 Kurtz OD Cosme. [address] , [address], [place], [address], [place]. tel:[phone] Family History Family Member Type Diagnosis Age At Onset No Information Payers Payer name Insurance type Covered green party ID Authoriza tion(s) [facility] Commercial CI [id number] Social History Type Description Quantity Date Captured [...]
--- OUTSIDE RECORDS SUMMARY | 2025-04-20 08:32 | XMS_ITS | Clinical Summary ---
Author Organization [facility] Address [address] [place] [address] Care Team Providers Care Compliance Analyst Name Role Phone Loni Duong Primary Care Pr ovider Allergies Active Allergy Reactions Criticality Noted Date Comments Codeine Itching Low Medications [id number] iron [id number] 18 mg iron-600 mcg-80 mcg [...] (05/23/2020): Added automatically from request for surgery [id number] Encounter for follow-up surveillance of breast c ancer 04/23/2020 History of bilateral breast cancer 04/23/2020 Generalized abdominal pain 10/12/2019 Diverticulitis of large inte brian without perforation or abscess without bleeding 10/12/2019 Gastric nodule 10/12/2019 Epigastric pain 07/23/2019 Irritable bowel syndrome 11/01/2018 Surgical History Surgery Date Site/Laterality Comments SD DELIVERY ONLY SD CHOLECYSTECTOMY SD DILATION & CURETTAGE DX&/THER NONOBSTETRIC MASTECTOMY, PARTIAL [...] on file 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 Gender Identity Not on file Sexual Orientation [...] 08/12/2022, 04/30/2021, Additional history exists Influenza Vaccine (#1) 2025 Colon Cancer Screening-Colonoscopy 06/13/2030 06/13/2020, 12/10/2015 [...] Read Routine (OP Routine) 10/05/2023 9:39 AM CORPORATE STRATEGY ASSOCIATE Unspecified lump in axillary tail of the right breast COLONOSCOPY 06/13/2020 9:01 AM CDT from Last 3 Months or Most Recently Relevant to Health Maintenance Results * Diagnostic Mammogram Bilateral W Chetan (10/05/2023 9:39 AM CORPORATE STRATEGY ASSOCIATE) Anatomical Region Laterality Modality Breast Bilateral Mammography 10/05/2023 10:1 3 AM CORPORATE STRATEGY ASSOCIATE Impressions 10/05/2023 10:37 AM CORPORATE STRATEGY ASSOCIATE 1. Stable postsurgical changes of bilateral breast [...] Chantel Leo M.D. Narrative 10/05/2023 10:37 AM CORPORATE STRATEGY ASSOCIATE EXAMINATION: BILATERAL DIGITAL DIAGNOSTIC MAMMOGRAM INCLUDING CAD [...] Female Attending MD: Kal Ha M.D. Room: [facility] ENDOSCOPY ROOM 04 Note Status: [...] Thescope was passed under direct vision. The [id number] introduced through the anus and advanced to the cecum, identified by appendiceal orifice and ileocecal valve.The colonoscopy was performed without difficulty. Thepatient tolerated the procedure well. The quality of the bowel preparation was evaluated using the BBPS ([place] Bowel Preparation Scale) with scores of: Right [...] JR Date of :1965 Payer ID:[id number] (NAIC) Type:[employer] Address: [address] ACCESS OOS Member Subscriber Plan / Payer ( fective 2021-Present) Name:Alana Pal Relation to Subscriber:Self Name:Alana Pal Payer ID:[id number] (NAIC) Group ID:Not on file Type:[employer] Address: [address] [employer]US [place] [id number] [employer] Advance Directives For more information, please contact: [phone] * Full Code (Latest Code Status on File) Date Activated Date Inactivated Comments 06/13/2020 8:02 AM 06/13/2020 1:57 PM * Full Code Date Activated Date Inactivated Comments 09/01/2019 8:33 AM 09/01/2019 3:28 PM Care Teams Compliance Analyst Relationship Specialty Start Date End Date Loni Duong PA PCP - General 11/19/16
[2025-04-20 08:42] VITALS: BP 157/89; PULSE 72; RESP 19; TEMP 36.6; O2SAT 100
--- NOTE | 2025-04-20 08:53 | ED.ABDPAIN ---
HPI - Abdominal Pain General Chief Complaint: Abdominal Pain Stated Complaint: abd pain Time Seen by Provider: 04/20/25 08:48 History of Present Illness HPI narrative: Is a 59-year-old female who presents ER with left-sided back pain and abdominal pain. Ongoing over last week. No improvement with chiropractic adjustments. His tried anti-inflammatories without significant improvement. Left lower quadrant abdominal pain worse after having bowel movements in the morning. Denies constipation or diarrhea. No urinary frequency urgency or dysuria. Related Data Home Medications ?Medication ?Instructions ?Recorded ?Confirmed ?Last Taken ?Type cholecalciferol (vitamin D3) 50 50 mcg PO DAILY 03/25/23 04/11/25 02/02/25 History mcg (2,000 unit) capsule (Vitamin D3) multivit with minerals-iron 18 1 tablet PO DAILY 03/25/23 04/11/25 02/02/25 History mg-folic ac 400 mcg-vit K 25 mcg tablet (Adults Multivitamin) Saccharomyces boulardii 250 mg 250 mg PO BID 09/09/23 04/11/25 02/02/25 History capsule (Daily Probiotic (S. boulardii)) bile uasto-eimg-oynw-phenolpth 1 tablet PO DAILY 09/09/23 04/11/25 02/02/25 History tablet Allergies Allergy/AdvReac Type Severity Reaction Status Date / Time codeine Allergy Intermediate ITCHING/IRENE Verified 04/20/25 08:44 H oxycodone Allergy Mild Rash Verified 04/20/25 08:44 Review of Systems Review of Systems: All systems reviewed & are unremarkable except as noted in HPI and below Constitutional: Constitutional: Reports no additional constitutional complaints ENT: Reports system reviewed and no additional complaints, except as documented Cardiovascular: Cardiovascular: Reports no additional cardiovascular complaints Respiratory: Respiratory: Reports no additional respiratory complaints Musculoskeletal: Musculoskeletal: Reports no additional musculoskeletal complaints [facility] Past Medical History Medical History Cavovarus deformity of foot, acquired Arthritis of foot, degenerative Endometriosis Interstitial cystitis (chronic) without hematuria Diverticulitis Surgical History Surgical History H/O knee surgery S/P breast lumpectomy H/O laparoscopy Delivery by section History of cholecystectomy Laparoscopic cholecystectomy 2009 at [facility] Breast cancer Status post lumpectomy and axillary dissection with postoperative radiation therapy and chemotherapy. Family History Family History (Reviewed 04/11/25 @ 08:34 by Stephanie Edgar [facility]) Father Hypertension Mother Diabetes mellitus Disorder of thyroid Sibling No problems noted. Social History Social History (Updated 04/11/25 @ 09:40 by Macarena Morales [facility]) Smoking status: Never smoker Alcohol intake: never Alcohol use details: only scant, Communion Substance use: never Substance use type: does not use Current Housing: Decline to Answer Concerned About Future Housing: Decline to Answer Difficulty Paying Gas/Electric Bills: Decline to Answer Difficulty Paying for Meds: Decline to Answer Currently Unemployed: Decline to Answer Education: Decline to Answer Difficulty w/ Childcare or Family Care: Decline to Answer Living arrangements: with family Additional living arrangements comments: and daughter Occupation/Education: unemployed Gender identity (if verbalized by the patient): Female Spiritual care concerns: No Exam Narrative: GENERAL: Well-appearing, well-nourished, and in no acute distress. HEAD: Normocephalic, atraumatic. ENT: Mucous membranes moist. CHEST: Clear to auscultation. No respiratory distress. HEART: Regular rate and rhythm. Normal peripheral pulses. ABDOMEN: Soft, nontender, nondistended. Back: No CVA tenderness or significant paraspinal tenderness. EXTREMITIES: Normal range of motion. No edema. SKIN: Warm, dry, no rash. NEURO: Alert and oriented x3. Course Course Emergency Course: Patient resting comfortably. CMP and CBC unremarkable. Hydrating given antiemetics. CT without acute pathology within the abdomen. Vital Signs Vital signs: Vital Signs Temperature 98 F 04/20/25 08:42 Pulse Rate 72 04/20/25 08:42 Respiratory Rate 19 04/20/25 08:42 Blood Pressure 157/89 H 04/20/25 08:42 Pulse Oximetry 100 04/20/25 08:42 Oxygen Delivery Room Air 04/20/25 08:42 Temperature 98 F 04/20/25 08:42 Pulse Rate 66 04/20/25 12:04 Respiratory Rate 13 04/20/25 12:04 Blood Pressure 130/77 04/20/25 12:04 Pulse Oximetry 100 04/20/25 12:04 Oxygen Delivery Room Air 08/08/25 08:42 MDM - Abdominal Pain Lab Data 04/20/25 09:03 04/20/25 09:03 Labs: Lab Results 04/20/25 Range/Units 09:03 WBC 4.8 (4.5-10.0) K/mm3 RBC 4.34 (4.2-5.4) M/mm3 Hgb 12.7 (12.0-15.0) g/dL Hct 39.1 (37.0-47.0) % MCV 90.1 (80-100) fl MCH 29.3 (26-34) pg MCHC 32.5 (32-36) g/dl RDW 12.7 (11.5-14.5) % Plt Count 310 (150-375) k/mm3 MPV 8.7 (7.4-10.4) fl Immature Gran % (Auto) 0.4 (0-0.5) % Neut % (Auto) 57.7 (45.5-73.1) % Lymph % (Auto) 27.9 (18.3-44.2) % Hart % (Auto) 10.3 H (2.6-8.5) % Eos % (Auto) 3.1 (0-4.4) % Baso % (Auto) 0.6 (0.2-1.2) % Lymph # (Auto) 1.33 (0.9-3.2) K/mm3 Hart # (Auto) 0.5 (0.1-0.6) K/mm3 Eos # (Auto) 0.2 (0-0.3) K/mm3 Baso # (Auto) 0.0 (0.0-0.1) K/mm3 Abs Immat Gran (auto) 0.02 (0.00-0.031) K/mm3 Absolute Neuts (auto) 2.8 (1.3-6.7) K/mm3 Absolute Nucleated RBC 0.000 (0.0-0.012) K/mm3 Nucleated RBC % 0.0 (0.0-0.2) % Sodium 137 (137-145) mmol/L Potassium 4.4 (3.4-5.0) mmol/L Chloride 103 (98-107) mmol/L Carbon Dioxide 26 (22-30) mmol/L Anion Gap 8 (4-12) mmol/L BUN 14 (7-17) mg/dL Creatinine 0.63 L (0.7-1.0) mg/dL Estim Creat Clear Calc 88 ml/min Estimated GFR > 60 (59 - ) Glucose 98 (65-110) mg/dL Calcium 9.6 (8.4-10.2) mg/dL Total Bilirubin 0.7 (0.2-1.3) mg/dL AST 44 H (14-36) U/L ALT 29 (6-35) U/L Alkaline Phosphatase 87 (38-126) U/L Total Protein 7.4 (6.3-8.2) g/dL Albumin 4.3 (3.5-5.1) g/dL Lipase 101 (23-300) U/L Imaging Data Radiologist's impression: ITS Impressions Abdomen/Pelvis CT 04/20/25 10:03 IMPRESSION: 1. No acute abdominal abnormality. Discharge Plan Discharge Clinical Impression: Left lower quadrant abdominal pain, Back pain Patient Disposition: Home Condition: Stable Instructions: Abdominal Pain (ED) Additional Instructions: Return to the emergency department if you develop severe abdominal pain, severe nausea and vomiting to the point where you are unable to keep down fluids, if you develop chest pain or difficulty breathing, blood in your stool, dizziness or fainting, or if you develop any other new or concerning symptoms as these could be signs of more serious medical illness. Try to stay well hydrated. Patient Language: Albanian Prescriptions: New simethicone 125 mg capsule 125 mg PO QID Qty: 20 0RF Rx Instructions: administer after meals and at bedtime dicyclomine 20 mg tablet 20 mg PO QID Qty: 20 0RF No Action Saccharomyces boulardii [Daily Probiotic (S. boulardii)] 250 mg capsule 250 mg PO BID bile lxjwh-lonj-cgkx-phenolpth Tablet 1 tablet PO DAILY cholecalciferol (vitamin D3) [Vitamin D3] 50 mcg (2,000 unit) Capsule 50 mcg PO DAILY Adults Multivitamin 18 mg iron-400 mcg-25 mcg Tablet 1 tablet PO DAILY Follow-up/Referrals: Rhoda,SYLVIA Ivey [Primary Care Provider] - 1 Week
[2025-04-20 09:08] LABS: Hematocrit 39.1 % (37.0-47.0); Hemoglobin 12.7 g/dL (12.0-15.0); Immature Granulocyte Percent A 0.4 % (0-0.5); Lymphocytes Absolute Auto 1.33 K/mm3 (0.9-3.2); Mean Corpuscular HGB Conc 32.5 g/dl (32-36); Mean Corpuscular Hemoglobin 29.3 pg (26-34); Mean Corpuscular Volume 90.1 fl (80-100); Nucleated Red Blood Cells Absolute Auto 0.000 K/mm3 (0.0-0.012); Nucleated Red Blood Cells Perc 0.0 % (0.0-0.2); Platelet Count Result 310 k/mm3 (150-375); Red Blood Count 4.34 M/mm3 (4.2-5.4); White Blood Count 4.8 K/mm3 (4.5-10.0)
--- NOTE | 2025-04-20 09:08 | PC.NURSE ---
Vascular access called for IV
[2025-04-20 09:26] LABS: Alanine Aminotransferase 29 U/L (6-35); Albumin Level 4.3 g/dL (3.5-5.1); Alkaline Phosphatase 87 U/L (38-126); Anion Gap 8 mmol/L (4-12); Aspartate Amino Transferase 44 U/L (14-36); Bilirubin,Total 0.7 mg/dL (0.2-1.3); Blood Urea Nitrogen 14 mg/dL (7-17); Calcium 9.6 mg/dL (8.4-10.2); Carbon Dioxide 26 mmol/L (22-30); Chloride 103 mmol/L (98-107); Estimated CRCL calculation 88 ml/min; Estimated Glomerular Filt Rate > 60; Glucose 98 mg/dL (65-110); Lipase 101 U/L (23-300); Potassium 4.4 mmol/L (3.4-5.0); Sodium 137 mmol/L (137-145); Total Protein 7.4 g/dL (6.3-8.2)
[2025-04-20] MEDS: SODIUM CHLORIDE 0.9% IV 1,000 ML 999 ML IV CONT (09:48)
[2025-04-20] MEDS: ONDANSETRON INJ 4 MG/2 ML VIAL IV PUSH (09:48)
[2025-04-20 09:51] VITALS: BP 154/74; PULSE 71; RESP 15; O2SAT 95
--- OUTSIDE RECORDS SUMMARY | 2025-04-20 10:00 | XMS_ITS | Continuity of Care Document ---
Author Organization [facility] Address [address] [facility] [address] [place] [address] Phone Care Team Providers Care Buckle Strap Puncher Name Role Phone Kurtz OD, Cosme Unavailable Unavailable Advance Directives Directive Yes / No Effective Date File Name No Information Encounters Encounter Description Practice Location Reason(s) For Visit Diagnoses Date Provider Providers Copied on Encounter [facility], [address], [place], [place], [id number], [place] tel:[phone] [facility] No Information Cayden-2 [phone] 6 Kurtz OD Cosme. [address] , [address], [place], [address], [place]. tel:[phone] Family History Family Member Type Diagnosis Age At Onset No Information Payers Payer name Insurance type Covered green party ID Authoriza tion(s) [facility] Commercial CI [id number] Social History Type Description Quantity Date Captured [...]
--- OUTSIDE RECORDS SUMMARY | 2025-04-20 10:00 | XMS_ITS | Clinical Summary ---
Author Organization [facility] Address [address] [place] [address] Care Team Providers Care Bottom Saw Operator Name Role Phone Loni Duong Primary Care Pr ovider Allergies Active Allergy Reactions Criticality Noted Date Comments Codeine Itching Low Medications ve-uzurqgl-ktr- iron fm-FA-vitK 18 mg iron-600 mcg-80 mcg [...] (05/23/2020): Added automatically from request for surgery [id number] Encounter for follow-up surveillance of breast c ancer 04/23/2020 History of bilateral breast cancer 04/23/2020 Generalized abdominal pain 10/12/2019 Diverticulitis of large inte brian without perforation or abscess without bleeding 10/12/2019 Gastric nodule 10/12/2019 Epigastric pain 07/23/2019 Irritable bowel syndrome 11/01/2018 Surgical History Surgery Date Site/Laterality Comments ME DELIVERY ONLY ME CHOLECYSTECTOMY ME DILATION & CURETTAGE DX&/THER NONOBSTETRIC MASTECTOMY, PARTIAL [...] on file Legal Sex Female 8:16 PM BANQUET CHEF Gender Identity Not on file Sexual Orientation [...] Read Routine (OP Routine) 10/05/2023 9:39 AM BANQUET CHEF Unspecified lump in axillary tail of the right breast COLONOSCOPY 06/13/2020 9:01 AM CDT from Last 3 Months or Most Recently Relevant to Health Maintenance Results * Diagnostic Mammogram Bilateral W Chetan (10/05/2023 9:39 AM BANQUET CHEF) Anatomical Region Laterality Modality Breast Bilateral Mammography 10/05/2023 10:1 3 AM BANQUET CHEF Impressions 10/05/2023 10:37 AM BANQUET CHEF 1. Stable postsurgical changes of bilateral breast [...] Chantel Leo M.D. Narrative 10/05/2023 10:37 AM BANQUET CHEF EXAMINATION: BILATERAL DIGITAL DIAGNOSTIC MAMMOGRAM INCLUDING CAD [...] Female Attending MD: Kal Ha M.D. Room: [facility] 04 Note Status: Finalized [...] Thescope was passed under direct vision. The [id number] introduced through the anus and advanced to the cecum, identified by appendiceal orifice and ileocecal valve.The colonoscopy was performed without difficulty. Thepatient tolerated the procedure well. The quality of the bowel preparation was evaluated using the BBPS ([place] Bowel Preparation Scale) with scores of: Right [...] JR Date of :1965 Payer ID:[id number] (NAIC) Type:[employer] Address: [address] ACCESS OOS Member Subscriber Plan / Payer ( fective 2021-Present) Name:Alana Pal Relation to Subscriber:Self Name:Alana Pal Payer ID:[id number] (NAIC) Group ID:Not on file Type:[employer] Address: [address] CHOICE PLUS [place] [id number] [employer]US Advance Directives For more information, please contact: [phone] * Full Code (Latest Code Status on File) Date Activated Date Inactivated Comments 06/13/2020 8:02 AM 06/13/2020 1:57 PM * Full Code Date Activated Date Inactivated Comments 09/01/2019 8:33 AM 09/01/2019 3:28 PM Care Teams Bottom Saw Operator Relationship Specialty Start Date End Date Loni Duong PA PCP - General 11/19/16
--- OUTSIDE RECORDS SUMMARY | 2025-04-20 10:00 | XMS_ITS | Encounter Summary ---
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
--- OUTSIDE RECORDS SUMMARY | 2025-04-20 10:00 | XMS_ITS | Encounter Summary ---
Author Organization [facility] Address [address] [place] [address] Phone Care Team Providers Care Certified Medical Coding Specialist Name Role Phone Loni Duong Primary Care Pr ovider Encounter Details Date Type Department Care Team (Late st Contact Info) Description 12/06/2017 Orders Only [facility] ProvideriVc MD [address] [place] [address] Social History Tobacco Use Types Packs/Day Years Used Date Smoking Tobacco: Never Comments Unknown Sex and Gender Information Value Date Recorded Sex Assigned at Not on file Legal Sex Female 8:16 PM HOG SAWYER Gender Identity Not on file Sexual Orientation [...] on filedocumented in this encounter Care Teams Certified Medical Coding Specialist Relationship Specialty Start Date End Date Loni Duong PA PCP - General 11/19/16 documented as of this encounter
--- OUTSIDE RECORDS SUMMARY | 2025-04-20 10:00 | XMS_ITS | Clinical Summary ---
Author Organization [facility] Address [address] [place] [address] Phone Care Team Providers Care Sample Tester Grinder Name Role Phone Loni Duong Primary Care Provider Social History Tobacco Use Types Packs/Day Years Used Date Smoking Tobacco: Never Assessed Comments Unknown Sex and Gender Information Value Date Recorded Sex Assigned at Not on file Legal Sex Female 11:43 AM CUSTOMER SERVICE LEADER Gender Identity Not on file Sexual Orientation [...] patient's age to complete this topic Insurance [facility] Care Teams Sample Tester Grinder Relationship Specialty Start Date End Date Loni Duong PA PCP - General Family Medicine 09/03/17
--- OUTSIDE RECORDS SUMMARY | 2025-04-20 10:00 | XMS_ITS | Encounter Summary ---
Author Organization [facility] Address [address] [facility] [place] [address] Care Team Providers Care Director Consumer Affairs Name Role Phone Loni Marks Primary Care Pr ovider Reason for Visit * Reason Onset Date Comments Future Appointment 12/12/2018 Encounter Details Date Type Department Care Team (Late st Contact Info) Description 12/12/2018 Telephone [facility] [address] [place] [address] Kyle Chanel Jr., MD [address] [facility] [address] [place] [address] Future Appointment Social History Tobacco Use Types Packs/Day Years Used Date Smoking Tobacco: Never Assessed Comments Unknown Sex and Gender Information Value Date Recorded Sex Assigned at Not on file Legal Sex Female 6:32 AM COOLER MAN Gender Identity Not on file Sexual Orientation Not on file documented as of this encounter Miscellaneous Notes * Telephone Encounter - Yue Vallejo - 12/12/2018 2:21 PM CDT PT would like for someone to give her a call about appointment tomorrow regarding if she needs results for her ct scan CB: [phone] documented in this encounter Plan of Treatment Not on file documented as of this encounter Visit Diagnoses Not on filedocumented in this encounter Care Teams Director Consumer Affairs Relationship Specialty Start Date End Date Loni Marks PA [address] [place] [address] PCP - General 11/29/18 documented as of this encounter
--- OUTSIDE RECORDS SUMMARY | 2025-04-20 10:00 | XMS_ITS | Clinical Summary ---
Author Organization [facility] Address [address] [place] [address] Care Team Providers Care Tape Maker Name Role Phone Loni Marks Primary Care Pr ovider Source Comments [facility],non-owned Affiliates and Associated Physician Practices is amultiple site organization consisting of ambulatory clinics and hospital sitesin [place], [place], [place] and [place]. This disclosure is being madepursuant to the Care Everywhere program and may not contain all information available regarding this patient. 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
[2025-04-20 10:46] VITALS: BP 135/82; PULSE 75; RESP 19; O2SAT 100
[2025-04-20 12:04] VITALS: BP 130/77; PULSE 66; RESP 13; O2SAT 100
== END 2025-04-20 12:17 | disposition home or self-care (01) ==
PROVIDERS: Emergency Provider Emergency Medicine; PCP Physician Assistant
DX: R10.32 Left lower quadrant pain (principal); M54.9 Dorsalgia, unspecified; Z85.3 Personal history of malignant neoplasm of breast
CPT/HCPCS: 36415; 74177; 80053; 83690; 85025; 96361; 96374; 99284; J2405; J7030; Q9967

== ENCOUNTER 2025-05-04 07:46 | Emergency (ER) | payer OTHER, SELFPAY ==
--- OUTSIDE RECORDS SUMMARY | 2006-03-09 10:30 | XMS_ITS | Continuity of Care Document ---
Author Organization [facility] Address [address] [place] [address] Phone Care Team Providers Care Screener Operator Name Role Phone Kurtz OD, Cosme Unavailable Unavailable Advance Directives Directive Yes / No Effective Date File Name No Information Encounters Encounter Description Practice Location Reason(s) For Visit Diagnoses Date Provider Providers Copied on Encounter [facility], [address], [place], [place], [id number], [place] tel:[phone] [facility] No Information Cayden-2 7-200 6 Kurtz OD Cosme. [address] , [address], [place], [address], [place]. tel:[phone] Family History Family Member Type Diagnosis Age At Onset No Information Payers Payer name Insurance type Covered constitution party ID Authoriza tion(s) [facility] Commercial CI [id number] Social History Type Description Quantity Date Captured Comments Sex Male Smoking Status No Information Chief Complaint And Reason For Visit No Information Reason For Referral Reason For Referral No Information History Of Present Illness Encounter Date Complaint History Of Prese nt Illness No Information Functional Status Date Functional Assessmen t No Information Instructions Date Instruction Additional Infor mation No Information Assessments Type Assessment Date No Information Patient Care Teams Name Effective Dates (start - stop) Status Members No Information
--- OUTSIDE RECORDS SUMMARY | 2006-03-09 10:30 | XMS_ITS | Continuity of Care Document ---
Author Organization [facility] Address [address] [place] [address] Phone Care Team Providers Care Customs Compliance Director Name Role Phone Kurtz OD, Cosme Unavailable Unavailable Advance Directives Directive Yes / No Effective Date File Name No Information Encounters Encounter Description Practice Location Reason(s) For Visit Diagnoses Date Provider Providers Copied on Encounter [facility], [address], [place], [place], [id number], [place] tel:[phone] [facility] No Information Cayden-2 7-200 6 Kurtz OD Cosme. [address] , [address], [place], [address], [place]. tel:[phone] Family History Family Member Type Diagnosis Age At Onset No Information Payers Payer name Insurance type Covered republican ID Authoriza tion(s) [facility] Commercial CI [id number] Social History Type Description Quantity Date Captured [...]
--- OUTSIDE RECORDS SUMMARY | 2025-05-04 07:49 | XMS_ITS | Encounter Summary ---
Author Organization [facility] Address [address] [facility] [place] [address] Care Team Providers Care Stereoptician Name Role Phone Loni Marks Primary Care Pr ovider Reason for Visit * Reason Onset Date Comments Future Appointment 12/12/2018 Encounter Details Date Type Department Care Team (Late st Contact Info) Description 12/12/2018 Telephone [facility] [address] [place] [address] Kyle Chanel Jr., MD [address] [facility] [address] [place] [address] Future Appointment Social History Tobacco Use Types Packs/Day Years Used Date Smoking Tobacco: Never Assessed Comments Unknown Sex and Gender Information Value Date Recorded Sex Assigned at Not on file Legal Sex Female 6:32 AM SITE LEAD Gender Identity Not on file Sexual Orientation Not on file documented as of this encounter Miscellaneous Notes * Telephone Encounter - Yue Vallejo - 12/12/2018 2:21 PM CDT PT would like for someone to give her a call about appointment tomorrow regarding if she needs results for her ct scan CB: [phone] documented in this encounter Plan of Treatment Not on file documented as of this encounter Visit Diagnoses Not on filedocumented in this encounter Care Teams Stereoptician Relationship Specialty Start Date End Date Loni Marks PA [address] [place] [address] PCP - General 11/29/18 documented as of this encounter
--- OUTSIDE RECORDS SUMMARY | 2025-05-04 07:49 | XMS_ITS | Encounter Summary ---
Author Organization [facility] Address [address] [place] [address] Phone Care Team Providers Care Focuser Name Role Phone Loni Duong Primary Care Pr ovider Encounter Details Date Type Department Care Team (Late st Contact Info) Description 12/06/2017 Orders Only [facility] ProviderVic MD [address] [place] [address] Social History Tobacco Use Types Packs/Day Years Used Date Smoking Tobacco: Never Comments Unknown Sex and Gender Information Value Date Recorded Sex Assigned at Not on file Legal Sex Female 8:16 PM BUSINESS OPERATIONS COORDINATOR Gender Identity Not on file Sexual [...] on filedocumented in this encounter Care Teams Focuser Relationship Specialty Start Date End Date Loni Duong PA PCP - General 11/19/16 documented as of this encounter
--- OUTSIDE RECORDS SUMMARY | 2025-05-04 07:49 | XMS_ITS | Clinical Summary ---
Author Organization [facility] Address [address] [place] [address] Care Team Providers Care Whipped Topping Finisher Name Role Phone Loni Duong Primary Care Pr ovider Allergies Active Allergy Reactions Criticality Noted Date Comments Codeine Itching Low Medications ng-oqmjzpr-eod- iron fm-FA-vitK 18 mg iron-600 mcg-80 mcg [...] (05/23/2020): Added automatically from request for surgery [id number] Encounter for follow-up surveillance of breast c ancer 04/23/2020 History of bilateral breast cancer 04/23/2020 Generalized abdominal pain 10/12/2019 Diverticulitis of large inte brian without perforation or abscess without bleeding 10/12/2019 Gastric nodule 10/12/2019 Epigastric pain 07/23/2019 Irritable bowel syndrome 11/01/2018 Surgical History Surgery Date Site/Laterality Comments HI DELIVERY ONLY HI CHOLECYSTECTOMY HI DILATION & CURETTAGE DX&/THER NONOBSTETRIC MASTECTOMY, PARTIAL [...] on file Legal Sex Female 8:16 PM LEARNING SUPPORT SPECIALIST Gender Identity Not on file Sexual Orientation [...] Read Routine (OP Routine) 10/05/2023 9:39 AM LEARNING SUPPORT SPECIALIST Unspecified lump in axillary tail of the right breast COLONOSCOPY 06/13/2020 9:01 AM CDT from Last 3 Months or Most Recently Relevant to Health Maintenance Results * Diagnostic Mammogram Bilateral W Chetan (10/05/2023 9:39 AM LEARNING SUPPORT SPECIALIST) Anatomical Region Laterality Modality Breast Bilateral Mammography 10/05/2023 10:1 3 AM LEARNING SUPPORT SPECIALIST Impressions 10/05/2023 10:37 AM LEARNING SUPPORT SPECIALIST 1. Stable postsurgical changes of bilateral breast [...] Chantel Leo M.D. Narrative 10/05/2023 10:37 AM LEARNING SUPPORT SPECIALIST EXAMINATION: BILATERAL DIGITAL DIAGNOSTIC MAMMOGRAM INCLUDING CAD [...] Female Attending MD: Kal Ha M.D. Room: [facility]COPY ROOM 04 Note Status: Finalized [...] Thescope was passed under direct vision. The [id number] introduced through the anus and advanced to the cecum, identified by appendiceal orifice and ileocecal valve.The colonoscopy was performed without difficulty. Thepatient tolerated the procedure well. The quality of the bowel preparation was evaluated using the BBPS ([place] Bowel Preparation Scale) with scores of: Right [...] JR Date of :1965 Payer ID:[id number] (NAIC) Type:[employer] Address: [address] ACCESS OOS Member Subscriber Plan / Payer ( fective 2021-Present) Name:Alana Pal Relation to Subscriber:Self Name:Alana Pal Payer ID:[id number] (NAIC) Group ID:Not on file Type:[employer] Address: [address] [employer]PP[facility] Address: [address] [address] [place] [id number] [facility] Address: [id number] [place] [address] [facility] H[facility]/PPO Address: [address] [place] [address] Advance Directives For more information, please contact: [phone] * Full Code (Latest Code Status on File) Date Activated Date Inactivated Comments 06/13/2020 8:02 AM 06/13/2020 1:57 PM * Full Code Date Activated Date Inactivated Comments 09/01/2019 8:33 AM 09/01/2019 3:28 PM Care Teams Whipped Topping Finisher Relationship Specialty Start Date End Date Loni Duong PA PCP - General 11/19/16
--- OUTSIDE RECORDS SUMMARY | 2025-05-04 07:49 | XMS_ITS | Clinical Summary ---
Author Organization [facility] Address [address] [place] [address] Phone Care Team Providers Care County Tax Assessor Name Role Phone Loni Duong Primary Care Provider Social History Tobacco Use Types Packs/Day Years Used Date Smoking Tobacco: Never Assessed Comments Unknown Sex and Gender Information Value Date Recorded Sex Assigned at Not on file Legal Sex Female 11:43 AM TACK CLEANER Gender Identity Not on file Sexual Orientation [...] patient's age to complete this topic Insurance [facility] Care Teams County Tax Assessor Relationship Specialty Start Date End Date Loni Duong PA PCP - General Family Medicine 09/03/17
--- OUTSIDE RECORDS SUMMARY | 2025-05-04 07:49 | XMS_ITS | Clinical Summary ---
Author Organization [facility] Address [address] [place] [address] Care Team Providers Care Compliance Vice President Name Role Phone Loni Marks Primary Care Pr ovider Source Comments [facility],non-owned Affiliates and Associated Physician Practices is amultiple site organization consisting of ambulatory clinics and hospital sitesin [place], [place], [place] and [place]. This disclosure is being madepursuant to the Care Everywhere program and may not contain all information available regarding this patient. 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
--- OUTSIDE RECORDS SUMMARY | 2025-05-04 07:49 | XMS_ITS | Encounter Summary ---
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
[2025-05-04 07:53] VITALS: BP 162/103; PULSE 88; RESP 18; TEMP 36.6; O2SAT 98
[2025-05-04 08:04] VITALS: BP 162/103; PULSE 90; RESP 20; TEMP 36.6; O2SAT 97
--- NOTE | 2025-05-04 08:10 | ECG_ITS ---
Test Date: 2025-05-04 08:18:14 Measurements Intervals Richardson Rate: 79 P: 27 NV: 174 QRS: -13 QRSD: 98 T: 30 QT: 365 QTc: 418 Interpretive Statements SINUS RHYTHM POSSIBLE LEFT ATRIAL ENLARGEMENT LOW QRS VOLTAGE IN PRECORDIAL LEADS CONSIDER ANTERIOR INFARCT, AGE INDETERMINATE ABNORMAL ECG Compared to ECG 01/30/2025 10:40:06 HEART RATE HAS INCREASED Electronically Signed On 05-04-2025 08:36:42 CDT by Telly Winters D.O.
[2025-05-04 08:16] LABS: Hematocrit 44.2 % (37.0-47.0); Hemoglobin 14.0 g/dL (12.0-15.0); Immature Granulocyte Percent A 0.4 % (0-0.5); Lymphocytes Absolute Auto 1.32 K/mm3 (0.9-3.2); Mean Corpuscular HGB Conc 31.7 g/dl (32-36); Mean Corpuscular Hemoglobin 28.4 pg (26-34); Mean Corpuscular Volume 89.7 fl (80-100); Nucleated Red Blood Cells Absolute Auto 0.000 K/mm3 (0.0-0.012); Nucleated Red Blood Cells Perc 0.0 % (0.0-0.2); Platelet Count Result 315 k/mm3 (150-375); Red Blood Count 4.93 M/mm3 (4.2-5.4); White Blood Count 4.8 K/mm3 (4.5-10.0)
[2025-05-04 08:17] LABS: BEDSIDEPREGUCG Negative (Negative)
[2025-05-04] MEDS: SODIUM CHLORIDE 0.9% IV 1,000 ML 999 ML IV CONT (08:17)
[2025-05-04] MEDS: KETOROLAC 30 MG/ML VIAL (*BKC) IV PUSH (08:17)
--- OUTSIDE RECORDS SUMMARY | 2025-05-04 08:22 | XMS_ITS | Clinical Summary ---
Author Organization [facility] Address [address] [place] [address] Phone Care Team Providers Care Test Desk Supervisor Name Role Phone Loni Duong Primary Care Provider Social History Tobacco Use Types Packs/Day Years Used Date Smoking Tobacco: Never Assessed Comments Unknown Sex and Gender Information Value Date Recorded Sex Assigned at Not on file Legal Sex Female 11:43 AM LAUNDRY OPERATOR WASH ROOM Gender Identity Not on file Sexual Orientation [...] patient's age to complete this topic Insurance [facility] Care Teams Test Desk Supervisor Relationship Specialty Start Date End Date Loni Duong PA PCP - General Family Medicine 09/03/17
--- OUTSIDE RECORDS SUMMARY | 2025-05-04 08:22 | XMS_ITS | Encounter Summary ---
Author Organization [facility] Address [address] [place] [address] Phone Care Team Providers Care Invoicing Machine Operator Name Role Phone Loni Duong [...] on file Legal Sex Female 8:16 PM CONTINUITY COORDINATOR Gender Identity Not on file Sexual [...] on filedocumented in this encounter Care Teams Invoicing Machine Operator Relationship Specialty Start Date End Date Loni Duong PA PCP - General 11/19/16 documented as of this encounter
--- OUTSIDE RECORDS SUMMARY | 2025-05-04 08:22 | XMS_ITS | Clinical Summary ---
Author Organization [facility] [employer] Address [address] [place] [address] Care Team Providers Care Net Application Architect Name Role Phone Loni Marks Primary Care Pr ovider Source Comments [facility] [employer],non-owned Affiliates and Associated Physician Practices is amultiple site organization consisting of ambulatory clinics and hospital sitesin [place], [place], [place] and [place]. This disclosure is being madepursuant to the Care Everywhere program and may not contain all information available regarding this patient. 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
--- OUTSIDE RECORDS SUMMARY | 2025-05-04 08:22 | XMS_ITS | Clinical Summary ---
Author Organization [facility] Address [address] [place] [address] Care Team Providers Care Patent Litigation Associate Name Role Phone Loni Duong Primary Care Pr ovider Allergies Active Allergy Reactions Criticality Noted Date Comments Codeine Itching Low Medications pv-xioyjcu-ykh- iron fm-FA-vitK 18 mg iron-600 mcg-80 mcg [...] (05/23/2020): Added automatically from request for surgery [id number] Encounter for follow-up surveillance of breast c ancer 04/23/2020 History of bilateral breast cancer 04/23/2020 Generalized abdominal pain 10/12/2019 Diverticulitis of large inte brian without perforation or abscess without bleeding 10/12/2019 Gastric nodule 10/12/2019 Epigastric pain 07/23/2019 Irritable bowel syndrome 11/01/2018 Surgical History Surgery Date Site/Laterality Comments DE DELIVERY ONLY DE CHOLECYSTECTOMY DE DILATION & CURETTAGE DX&/THER NONOBSTETRIC MASTECTOMY, PARTIAL [...] on file Legal Sex Female 8:16 PM DIRECTOR OF STUDENT FINANCIAL AID Gender Identity Not on file Sexual Orientation [...] Read Routine (OP Routine) 10/05/2023 9:39 AM DIRECTOR OF STUDENT FINANCIAL AID Unspecified lump in axillary tail of the right breast COLONOSCOPY 06/13/2020 9:01 AM CDT from Last 3 Months or Most Recently Relevant to Health Maintenance Results * Diagnostic Mammogram Bilateral W Chetan (10/05/2023 9:39 AM DIRECTOR OF STUDENT FINANCIAL AID) Anatomical Region Laterality Modality Breast Bilateral Mammography 10/05/2023 10:1 3 AM DIRECTOR OF STUDENT FINANCIAL AID Impressions 10/05/2023 10:37 AM DIRECTOR OF STUDENT FINANCIAL AID 1. Stable postsurgical changes of bilateral breast [...] Chantel Leo M.D. Narrative 10/05/2023 10:37 AM DIRECTOR OF STUDENT FINANCIAL AID EXAMINATION: BILATERAL DIGITAL DIAGNOSTIC MAMMOGRAM INCLUDING CAD [...] Female Attending MD: Kal Ha M.D. Room: [facility] 04 Note Status: Finalized [...] Thescope was passed under direct vision. The [id number] introduced through the anus and advanced to the cecum, identified by appendiceal orifice and ileocecal valve.The colonoscopy was performed without difficulty. Thepatient tolerated the procedure well. The quality of the bowel preparation was evaluated using the BBPS ([place] Bowel Preparation Scale) with scores of: Right [...] JR Date of :1965 Payer ID:[id number] (NAIC) Type:[email or web address] Address: [address] ACCESS OOS Member Subscriber Plan / Payer ( fective 2021-Present) Name:Alana Pal Relation to Subscriber:Self Name:Alana Pal Payer ID:[id number] (NAIC) Group ID:Not on file Type:[email or web address] Address: [address] CHOICE PLUS [place] [id number] CHOICE PLUS Advance Directives For more information, please contact: [phone] * Full Code (Latest Code Status on File) Date Activated Date Inactivated Comments 06/13/2020 8:02 AM 06/13/2020 1:57 PM * Full Code Date Activated Date Inactivated Comments 09/01/2019 8:33 AM 09/01/2019 3:28 PM Care Teams Patent Litigation Associate Relationship Specialty Start Date End Date Loni Duong PA PCP - General 11/19/16
[2025-05-04 08:23] LABS: Add Urine Microscopic? YES; Appearance Urine Clear (Clear); Glucose Urine UA Negative (Negative); Leukocyte Esterase Ur 1+ LEU/UL (Negative); Nitrate Urine Negative (Negative); Non Pathogenic Casts 0-2; Specific Grav Ur 1.011 (1.001-1.035)
--- OUTSIDE RECORDS SUMMARY | 2025-05-04 08:23 | XMS_ITS | Encounter Summary ---
Author Organization [facility] Address [address] [place] [address] Care Team Providers Care Ribbon Cleaner Name Role Phone Loni Marks Primary Care Pr ovider Reason for Visit * Reason Onset Date Comments Future Appointment 12/12/2018 Encounter Details Date Type Department Care Team (Late st Contact Info) Description 12/12/2018 Telephone [facility] [address] [place] [address] Kyle Chanel Jr., MD [address] [place] [address] Future Appointment Social History Tobacco Use Types Packs/Day Years Used Date Smoking Tobacco: Never Assessed Comments Unknown Sex and Gender Information Value Date Recorded Sex Assigned at Not on file Legal Sex Female 6:32 AM SOLUTION DIRECTOR Gender Identity Not on file Sexual Orientation Not on file documented as of this encounter Miscellaneous Notes * Telephone Encounter - Yue Vallejo - 12/12/2018 2:21 PM CDT PT would like for someone to give her a call about appointment tomorrow regarding if she needs results for her ct scan CB: [phone] documented in this encounter Plan of Treatment Not on file documented as of this encounter Visit Diagnoses Not on filedocumented in this encounter Care Teams Ribbon Cleaner Relationship Specialty Start Date End Date Loni Marks PA [address] [place] [address] PCP - General 11/29/18 documented as of this encounter
--- OUTSIDE RECORDS SUMMARY | 2025-05-04 08:23 | XMS_ITS | Encounter Summary ---
Author Organization [facility] Address [address] [place] [address] Phone Care Team Providers Care Manager Of Software Name Role Phone Loni Duong Primary Care Pr ovider Encounter Details Date Type Department Care Team (Late st Contact Info) Description 12/06/2017 Orders Only [facility] ProviderVic MD [address] [place] [address] Social History Tobacco Use Types Packs/Day Years Used Date Smoking Tobacco: Never Comments Unknown Sex and Gender Information Value Date Recorded Sex Assigned at Not on file 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
--- NOTE | 2025-05-04 08:25 | ED.ABDPAIN ---
HPI - Abdominal Pain General Chief Complaint: Abdominal Pain Stated Complaint: abd pain Time Seen by Provider: 05/04/25 07:57 History of Present Illness HPI narrative: Patient is a 59-year-old female who presents ER with a multitude of complaints. She has persistent abdominal pain since her visit on 04/21/2025. At that time she had a normal CT scan of her abdomen pelvis as well as normal lab work. The pain had been in left lower quadrant. She had taken the Gas-X but not the dicyclomine. She continues to have discomfort there but also in the right upper quadrant moving into the right chest. No exertional component. She reports persistent low back pain on left side that is worse with any type of movement. She is not having throbbing bandlike headache over her eyes and forehead in the temples bilaterally. She was seen by her PCP and there is no additional recommendation given to her. Related Data Home Medications ?Medication ?Instructions ?Recorded ?Confirmed ?Last Taken ?Type cholecalciferol (vitamin D3) 50 50 mcg PO DAILY 03/25/23 04/11/25 02/02/25 History mcg (2,000 unit) capsule (Vitamin D3) multivit with minerals-iron 18 1 tablet PO DAILY 03/25/23 04/11/25 02/02/25 History mg-folic ac 400 mcg-vit K 25 mcg tablet (Adults Multivitamin) Saccharomyces boulardii 250 mg 250 mg PO BID 09/09/23 04/11/25 02/02/25 History capsule (Daily Probiotic (S. boulardii)) bile tfvtg-fusj-ugkn-phenolpth 1 tablet PO DAILY 09/09/23 04/11/25 02/02/25 History tablet Allergies Allergy/AdvReac Type Severity Reaction Status Date / Time codeine Allergy Intermediate ITCHING/IRENE Verified 05/04/25 08:21 H oxycodone Allergy Mild Rash Verified 05/04/25 08:21 Review of Systems Review of Systems: All systems reviewed & are unremarkable except as noted in HPI and below Constitutional: Constitutional: Reports no additional constitutional complaints ENT: Reports system reviewed and no additional complaints, except as documented Cardiovascular: Cardiovascular: Reports no additional cardiovascular complaints Respiratory: Respiratory: Reports no additional respiratory complaints Gastrointestinal: Gastrointestinal: Reports no additional gastrointestinal complaints Genitourinary: Genitourinary: Reports no additional female genitourinary complaints [facility] Past Medical History Medical History Cavovarus deformity of foot, acquired Arthritis of foot, degenerative Endometriosis Interstitial cystitis (chronic) without hematuria Diverticulitis Surgical History Surgical History H/O knee surgery S/P breast lumpectomy H/O laparoscopy Delivery by section History of cholecystectomy Laparoscopic cholecystectomy [address] [facility] Breast cancer Status post lumpectomy and axillary dissection with postoperative radiation therapy and chemotherapy. Family History Family History Father Hypertension Mother Diabetes mellitus Disorder of thyroid Sibling No problems noted. Social History Social History (Updated 04/11/25 @ 09:40 by Macarena Morales FARM APPRAISER) Smoking status: Never smoker Alcohol intake: never Alcohol use details: only scant, Communion Substance use: never Substance use type: does not use Current Housing: Decline to Answer Concerned About Future Housing: Decline to Answer Difficulty Paying Gas/Electric Bills: Decline to Answer Difficulty Paying for Meds: Decline to Answer Currently Unemployed: Decline to Answer Education: Decline to Answer Difficulty w/ Childcare or Family Care: Decline to Answer Living arrangements: with family Additional living arrangements comments: and daughter Occupation/Education: unemployed Gender identity (if verbalized by the patient): Female Spiritual care concerns: No Exam Narrative: GENERAL: Well-appearing, well-nourished, and in no acute distress. HEAD: Normocephalic, atraumatic. ENT: Mucous membranes moist. NECK: Supple. CHEST: Clear to auscultation. No respiratory distress. HEART: Regular rate and rhythm. Normal peripheral pulses. ABDOMEN: Soft, nontender, nondistended. EXTREMITIES: Normal range of motion. No edema. SKIN: Warm, dry, no rash. NEURO: Alert and oriented x3. PSYCH: Normal mood and affect. Course Course Emergency Course: Unremarkable evaluation. Discussed labs in room with patient. May require GI follow-up and endoscopy in case she has H pylori or other ulcer related to Celebrex use. Will place on high-dose PPI for home. Vital Signs Vital signs: Vital Signs Temperature 97.9 F 05/04/25 07:53 Pulse Rate 88 05/04/25 07:53 Respiratory Rate 18 05/04/25 07:53 Blood Pressure 162/103 H 05/04/25 07:53 Pulse Oximetry 98 05/04/25 07:53 Oxygen Delivery Room Air 05/04/25 07:53 Temperature 97.9 F 05/04/25 08:04 Pulse Rate 85 05/04/25 10:14 Respiratory Rate 15 05/04/25 10:14 Blood Pressure 146/84 H 05/04/25 10:14 Pulse Oximetry 99 05/04/25 10:14 Oxygen Delivery Room Air 05/04/25 07:53 MDM - Abdominal Pain Lab Data 05/04/25 08:07 05/04/25 08:07 Labs: Lab Results 05/04/25 05/04/25 05/04/25 Range/Units 08:06 08:07 08:13 WBC 4.8 (4.5-10.0) K/mm3 RBC 4.93 (4.2-5.4) M/mm3 Hgb 14.0 (12.0-15.0) g/dL Hct 44.2 (37.0-47.0) % MCV 89.7 (80-100) fl MCH 28.4 (26-34) pg MCHC 31.7 L (32-36) g/dl RDW 12.5 (11.5-14.5) % Plt Count 315 (150-375) k/mm3 MPV 8.9 (7.4-10.4) fl Immature Gran % (Auto) 0.4 (0-0.5) % Neut % (Auto) 56.9 (45.5-73.1) % Lymph % (Auto) 27.8 (18.3-44.2) % Caswell % (Auto) 10.9 H (2.6-8.5) % Eos % (Auto) 3.4 (0-4.4) % Baso % (Auto) 0.6 (0.2-1.2) % Lymph # (Auto) 1.32 (0.9-3.2) K/mm3 Caswell # (Auto) 0.5 (0.1-0.6) K/mm3 Eos # (Auto) 0.2 (0-0.3) K/mm3 Baso # (Auto) 0.0 (0.0-0.1) K/mm3 Abs Immat Gran (auto) 0.02 (0.00-0.031) K/mm3 Absolute Neuts (auto) 2.7 (1.3-6.7) K/mm3 Absolute Nucleated RBC 0.000 (0.0-0.012) K/mm3 Nucleated RBC % 0.0 (0.0-0.2) % Sodium 138 (137-145) mmol/L Potassium 4.0 (3.4-5.0) mmol/L Chloride 103 (98-107) mmol/L Carbon Dioxide 24 (22-30) mmol/L Anion Gap 11 (4-12) mmol/L BUN 13 (7-17) mg/dL Creatinine 0.69 L (0.7-1.0) mg/dL Estim Creat Clear Calc 91 ml/min Estimated GFR > 60 (59 - ) Glucose 114 H (65-110) mg/dL Calcium 10.1 (8.4-10.2) mg/dL Total Bilirubin 0.8 (0.2-1.3) mg/dL AST 43 H (14-36) U/L ALT 37 H (6-35) U/L Alkaline Phosphatase 90 (38-126) U/L Troponin I < 0.012 (0.000-0.034) ng/mL Total Protein 8.0 (6.3-8.2) g/dL Albumin 4.6 (3.5-5.1) g/dL Lipase 102 (23-300) U/L Urine Color Yellow (Yellow) Urine Appearance Clear (Clear) Urine pH 6.5 (5.0-9.0) Ur Specific [place] 1.011 (1.001-1.035) Urine Protein Negative (Negative) mg/dL Urine Glucose (UA) Negative (Negative) mg/dL Urine Ketones Negative (Negative) mg/dL Ur Blood (Man) Negative (Negative) Urine Nitrate Negative (Negative) Urine Bilirubin Negative (Negative) Urine Urobilinogen 0.2 (<2.0) mg/dL Leukocyte Esterase Rfl 1+ H (Negative) RAYA/UL Urine RBC 0-2 (0-2) /hpf Urine WBC 6-10 H (0-3) /hpf Ur Squamous Epith Cells Occasional (Few) /hpf Urine Bacteria None seen /hpf Urine Casts 0-2 POC Urine HCG, Qual Negative (Negative) ECG Data EKG #1: ECG completion date: 05/04/25 ECG completion time: 08:18 normal rate (79), sinus rhythm, normal QRS, normal QT and NL axis Discharge Plan Discharge Clinical Impression: Nonspecific abdominal pain Patient Disposition: Home Condition: Stable Instructions: Diet for Stomach Ulcers and Gastritis (ED), Abdominal Pain (ED) Additional Instructions: Return to the emergency department if you develop severe abdominal pain, severe nausea and vomiting to the point where you are unable to keep down fluids, if you develop chest pain or difficulty breathing, blood in your stool, dizziness or fainting, or if you develop any other new or concerning symptoms as these could be signs of more serious medical illness. Try to stay well hydrated. Patient Language: Albanian Prescriptions: New pantoprazole 40 mg tablet,delayed release (DR/EC) 40 mg PO BID Qty: 30 0RF No Action Saccharomyces boulardii [Daily Probiotic (S. boulardii)] 250 mg capsule 250 mg PO BID bile gnrmu-nbpl-qnwm-phenolpth Tablet 1 tablet PO DAILY simethicone 125 mg capsule 125 mg PO QID Qty: 20 0RF Rx Instructions: administer after meals and at bedtime dicyclomine 20 mg tablet 20 mg PO QID Qty: 20 0RF cholecalciferol (vitamin D3) [Vitamin D3] 50 mcg (2,000 unit) Capsule 50 mcg PO DAILY Adults Multivitamin 18 mg iron-400 mcg-25 mcg Tablet 1 tablet PO DAILY Follow-up/Referrals: Rhoda,SYLVIA Ivey [Primary Care Provider, Unknown] Josiah Clark MD [Physician, Gastroenterology] - 1 Week
[2025-05-04 08:41] LABS: Alanine Aminotransferase 37 U/L (6-35); Albumin Level 4.6 g/dL (3.5-5.1); Alkaline Phosphatase 90 U/L (38-126); Anion Gap 11 mmol/L (4-12); Aspartate Amino Transferase 43 U/L (14-36); Bilirubin,Total 0.8 mg/dL (0.2-1.3); Blood Urea Nitrogen 13 mg/dL (7-17); Calcium 10.1 mg/dL (8.4-10.2); Carbon Dioxide 24 mmol/L (22-30); Chloride 103 mmol/L (98-107); Estimated CRCL calculation 91 ml/min; Estimated Glomerular Filt Rate > 60; Glucose 114 mg/dL (65-110); Lipase 102 U/L (23-300); Potassium 4.0 mmol/L (3.4-5.0); Sodium 138 mmol/L (137-145); Total Protein 8.0 g/dL (6.3-8.2)
[2025-05-04 08:58] LABS: Troponin I < 0.012 ng/mL (0.000-0.034)
[2025-05-04 09:19] VITALS: BP 156/86; PULSE 68; RESP 17; O2SAT 100
[2025-05-04] MEDS: ONDANSETRON INJ 4 MG/2 ML VIAL IV PUSH (10:09)
[2025-05-04 10:14] VITALS: BP 146/84; PULSE 85; RESP 15; O2SAT 99
[2025-05-04 11:40] VITALS: BP 140/75; PULSE 54; RESP 20; TEMP 37; O2SAT 100
== END 2025-05-04 11:41 | disposition home or self-care (01) ==
PROVIDERS: Emergency Provider Emergency Medicine; PCP Physician Assistant
DX: R10.32 Left lower quadrant pain (principal); N30.10 Interstitial cystitis (chronic) without hematuria; M19.079 Primary osteoarthritis, unspecified ankle and foot; Z85.3 Personal history of malignant neoplasm of breast; Z92.3 Personal history of irradiation; Z92.21 Personal history of antineoplastic chemotherapy; Z90.49 Acquired absence of other specified parts of digestive tract; N80.9 Endometriosis, unspecified; R94.31 Abnormal electrocardiogram [ECG] [EKG]
CPT/HCPCS: 36415; 80053; 81001; 81025; 83690; 84484; 85025; 87086; 93005; 96361; 96374; 96375; 99284; J1885; J2405; J7030

== ENCOUNTER 2025-05-16 06:33 | Outpatient (CLI) | payer OTHER, SELFPAY ==
--- NOTE | ~2025-05-16 | MR_ITS ---
EXAMINATION: MR MRCP wo/w con/w 3D wo ind DATE: 05/16/2025 07:51 INDICATION: Common bile duct obstruction. TECHNIQUE: Magnetic resonance imaging (MRI) of the abdomen was performed without and with 18 mL Multihance intravenous contrast. Sequences included coronal T2- weighted SS-FSE, coronal T2-weighted FS SS-FSE, coronal T2-weighted FS FIESTA, axial T2-weighted FS FIESTA, axial T2-weighted FIESTA, sagittal T2-weighted SS- FSE, axial T1-weighted dual-echo FSPGR, axial T2-weighted SS-FSE, axial T1- weighted LAVA, axial T2-weighted STIR FSE. Thick-slab T2-weighted FRFSE-XL images were obtained for magnetic resonance cholangiopancreatography (MRCP). Rotating maximum intensity projection 3-D reconstructions of the volumetric data were created by the technologist. Postcontrast sequences included a time course of axial T1-weighted LAVA. COMPARISON: CT dated 04/20/2025 and 09/12/2024 FINDINGS: ABDOMEN MRI: Heart size is normal. No pericardial or pleural effusion. Foci of metallic magnetic field artifact at the bilateral breasts corresponding to several surgical clips. Correlate with surgical history. There are couple T2 hyperintense nonenhancing cysts in the right hepatic lobe the largest measuring 2.7 cm. Metallic artifact associated with cholecystectomy clips the gallbladder fossa. Spleen, pancreas and bilateral adrenal glands are normal. Bilateral T2 hyperintense nonenhancing renal cysts the largest on the right measuring 1.6 cm. Mild left renal atrophy with more focal regions of cortical scarring which could represent sequela prior infection or infarction. Visualized portions of bowels are unremarkable. No pathologically enlarged abdominal lymphadenopathy. Mild thoracolumbar spondylosis. Chronic likely physiologic mild anterior wedging at T11 and T12. Bone marrow signal is normal throughout. ABDOMEN MRCP: There is mild intrahepatic biliary ductal dilation. There is dilation of the common bile duct which measures up to 11 mm in maximal diameter proximally which tapers gradually throughout the more distal duct without evident obstructing stone or mass. Main pancreatic duct is normal. IMPRESSION: 1. Chronic mild intra and extra hepatic biliary ductal dilation without evident obstructing stone or mass, likely related to prior cholecystectomy. 2. Mild left renal atrophy with more focal region of cortical scarring which could represent sequela of chronic infection or infarction. Reviewed, dictated and finalized at location A. IMPRESSION: 1. Chronic mild intra and extra hepatic biliary ductal dilation without evident obstructing stone or mass, likely related to prior cholecystectomy. 2. Mild left renal atrophy with more focal region of cortical scarring which co uld represent sequela of chronic infection or infarction.
--- OUTSIDE RECORDS SUMMARY | 2025-05-16 06:36 | XMS_ITS | Encounter Summary ---
Author Organization [facility] Address [address] [place] [address] Care Team Providers Care Grinding Mill Operator Name Role Phone Loni Marks Primary Care Pr ovider Reason for Visit * Reason Onset Date Comments Future Appointment 12/12/2018 Encounter Details Date Type Department Care Team (Late st Contact Info) Description 12/12/2018 Telephone [facility] [address] [place] [address] Kyle Chanel Jr., MD 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 Gender Identity Not on file Sexual Orientation Not on file documented as of this encounter Miscellaneous Notes * Telephone Encounter - Yue Vallejo - 12/12/2018 2:21 PM CDT PT would like for someone to give her a call about appointment tomorrow regarding if she needs results for her ct scan CB: [phone] documented in this encounter Plan of Treatment Not on file documented as of this encounter Visit Diagnoses Not on filedocumented in this encounter Care Teams Grinding Mill Operator Relationship Specialty Start Date End Date Loni Marks PA [address] [place] [address] PCP - General 11/29/18 documented as of this encounter
--- OUTSIDE RECORDS SUMMARY | 2025-05-16 06:36 | XMS_ITS | Clinical Summary ---
Author Organization [facility] Address [address] [place] [address] Care Team Providers Care Manager Cosmetics Name Role Phone Loni Marks Primary Care Pr ovider Source Comments [facility],non-owned Affiliates and Associated Physician Practices is amultiple site organization consisting of ambulatory clinics and hospital sitesin [place], [place], [place] and [place]. This disclosure is being madepursuant to the Care Everywhere program and may not contain all information available regarding this patient. Last updated 18.[facility] Allergies Active Allergy Reactions Criticality Noted Date [...] on file Legal Sex Female 6:32 AM PETROLOGIST Gender Identity Not on file Sexual Orientation [...] this topic Insurance ANTHEM ANTHEM Care Teams Manager Cosmetics Relationship Specialty Start Date End Date Loni Marks PA [address] [place] [phone] PCP - General 11/29/18
--- OUTSIDE RECORDS SUMMARY | 2025-05-16 06:36 | XMS_ITS | Encounter Summary ---
Author Organization [facility] Address [address] [place] [address] Phone Care Team Providers Care Manager Engagement Name Role Phone Loni Duong Primary Care Pr ovider Encounter Details Date Type Department Care Team (Late st Contact Info) Description 12/06/2017 Orders Only [facility] ProviderVic MD [address] [place] [address] Social History Tobacco Use Types Packs/Day Years Used Date Smoking Tobacco: Never Comments Unknown Sex and Gender Information Value Date Recorded Sex Assigned at Not on file 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
--- OUTSIDE RECORDS SUMMARY | 2025-05-16 06:36 | XMS_ITS | Clinical Summary ---
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
--- OUTSIDE RECORDS SUMMARY | 2025-05-16 06:36 | XMS_ITS | Encounter Summary ---
Author Organization 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
== END 2025-05-16 06:34 | disposition home or self-care (01) ==
PROVIDERS: PCP Physician Assistant; Visit Provider Physician Assistant
DX: K83.8 Other specified diseases of biliary tract (principal)
CPT/HCPCS: 74183; 76376; A9577

== ENCOUNTER 2025-06-28 00:28 | Day surgery (SDC) | payer OTHER, SELFPAY ==
[2025-06-18 13:36] VITALS: BMI 27.3
--- OUTSIDE RECORDS SUMMARY | 2025-06-28 00:31 | XMS_ITS | Clinical Summary ---
Author Organization [facility] Address [address] [place] [address] Care Team Providers Care Software Sales Consultant Name Role Phone Loni Duong Primary Care Pr ovider Allergies Active Allergy Reactions Criticality Noted Date Comments Codeine Itching Low Medications if-egjjinx-eft- iron fm-FA-vitK 18 mg iron-600 mcg-80 mcg [...] (05/23/2020): Added automatically from request for surgery [id number] Encounter for follow-up surveillance of breast c ancer 04/23/2020 History of bilateral breast cancer 04/23/2020 Generalized abdominal pain 10/12/2019 Diverticulitis of large inte brian without perforation or abscess without bleeding 10/12/2019 Gastric nodule 10/12/2019 Epigastric pain 07/23/2019 Irritable bowel syndrome 11/01/2018 Surgical History Surgery Date Site/Laterality Comments WA DELIVERY ONLY WA CHOLECYSTECTOMY WA DILATION & CURETTAGE DX&/THER NONOBSTETRIC MASTECTOMY, PARTIAL [...] on file 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 Stable postsurgical changes of bilateral breast [...] Chantel Leo M.D. Narrative 10/05/2023 10:37 AM TURBINE TECHNICIAN EXAMINATION: BILATERAL DIGITAL DIAGNOSTIC MAMMOGRAM INCLUDING CAD [...] Female Attending MD: Kal Ha M.D. Room: [facility] 04 Note Status: Finalized [...] Thescope was passed under direct vision. The [id number] introduced through the anus and advanced to the cecum, identified by appendiceal orifice and ileocecal valve.The colonoscopy was performed without difficulty. Thepatient tolerated the procedure well. The quality of the bowel preparation was evaluated using the BBPS ([place]ster Bowel Preparation Scale) with scores of: Right [...] JR Date of :1965 Payer ID:[id number] (NAIC) Type:ShareThe Address: [address] ACCESS OOS Member Subscriber Plan / Payer ( fective 2021-Present) Name:Alana Pal Relation to Subscriber:Self Name:Alana Pal Payer ID:[id number] (NAIC) Group ID:Not on file Type:ShareThe Address: [address] [facility] [facility] Address: [address] [address] [place] [id number] [facility] Address: [address] [place] [address] [employer] [facility] [employer] Address: [address] [place] [address] Advance Directives For more information, please contact: [phone] * Full Code (Latest Code Status on File) Date Activated Date Inactivated Comments 06/13/2020 8:02 AM 06/13/2020 1:57 PM * Full Code Date Activated Date Inactivated Comments 09/01/2019 8:33 AM 09/01/2019 3:28 PM Care Teams Software Sales Consultant Relationship Specialty Start Date End Date Loni Duong PA PCP - General 11/19/16
--- OUTSIDE RECORDS SUMMARY | 2025-06-28 00:32 | XMS_ITS | Clinical Summary ---
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
--- OUTSIDE RECORDS SUMMARY | 2025-06-28 00:32 | XMS_ITS | Encounter Summary ---
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
--- OUTSIDE RECORDS SUMMARY | 2025-06-28 00:32 | XMS_ITS | Encounter Summary ---
Author Organization [facility] Address [address] [address] Care Team Providers Care Chip Silo Tender Name Role Phone Loni Marks Primary Care Pr ovider Reason for Visit * Reason Onset Date Comments Future Appointment 12/12/2018 Encounter Details Date Type Department Care Team (Late st Contact Info) Description 12/12/2018 Telephone [facility] [address] [place] [address] Kyle Chanel Jr., MD [address] [facility] [address] [place] [address] Future Appointment Social History Tobacco Use Types Packs/Day Years Used Date Smoking Tobacco: Never Assessed Comments Unknown Sex and Gender Information Value Date Recorded Sex Assigned at Not on file 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 Gender Identity Not on file Sexual Orientation Not on file documented as of this encounter Miscellaneous Notes * Telephone Encounter - Yue Vallejo - 12/12/2018 2:21 PM CDT PT would like for someone to give her a call about appointment tomorrow regarding if she needs results for her ct scan CB: [phone] documented in this encounter Plan of Treatment Not on file documented as of this encounter Visit Diagnoses Not on filedocumented in this encounter Care Teams Chip Silo Tender Relationship Specialty Start Date End Date Loni Marks PA [address] [place] [address] PCP - General 11/29/18 documented as of this encounter
--- OUTSIDE RECORDS SUMMARY | 2025-06-28 00:32 | XMS_ITS | Clinical Summary ---
Author Organization [facility] Address [address] [place] [address] Care Team Providers Care Sash Repairer Name Role Phone Loni Marks Primary Care Pr ovider Source Comments [facility],non-owned Affiliates and Associated Physician Practices is amultiple site organization consisting of ambulatory clinics and hospital sitesin [place] and [place]. This disclosure is being madepursuant to the Care Everywhere program and may not contain all information available regarding this patient. Last updated 18.[facility] Allergies Active Allergy Reactions Criticality Noted Date [...] on file Legal Sex Female 6:32 AM MONOTYPER Gender Identity Not on file Sexual Orientation [...] of 2) 2014 SCREENING FOR DIABETES 06/20/2019 DEPRESSION SCREENING 09/13/2024 COVID-19 VACCINE (1 - 2023-2 5 season) 2025 INFLUENZA VACCINE (#1) 2025 COLON MONITORING 06/13/2030 [...] this topic Insurance ANTHEM ANTHEM Care Teams Sash Repairer Relationship Specialty Start Date End Date Loni Marks PA [address] [place] [address] PCP - General 11/29/18
--- OUTSIDE RECORDS SUMMARY | 2025-06-28 00:32 | XMS_ITS | Encounter Summary ---
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 Name Role Phone Loni Duong Primary Care Pr ovider Encounter Details Date Type Department Care Team (Late st Contact Info) Description 12/06/2017 Orders Only [facility] ProviderVic MD [address] [place] [id number] Social History Tobacco Use Types Packs/Day Years Used Date Smoking Tobacco: Never Comments Unknown Sex and Gender Information Value Date Recorded Sex Assigned at Not on file 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
--- OUTSIDE RECORDS SUMMARY | 2025-06-28 00:32 | XMS_ITS | Data Portability ---
Author Organization [place] [facility]AEL[place] Address [address] [place] [address] Assessment Encounter Date Assessment Date Assessment LastModified [...] None recorded. Lab biopsy, endometri al 2015 016 [email or web address] [facility], [address] [place] [address], [address], [place], [address], 13:08:18 pathology study - emb 2015 016 [email or web address] [facility], [address], [address], [place], [address], 6 12:06:24 urinalysi s, dipstick 2015 016 In-Office Order, Internal Use Only DO Not Attach Compendium DO Not Attach Compendium, Do Not Delete/merge, [facility] 6 10:54:31 test, urine 2015 016 [email or web address] In-Office Order, Internal Use Only DO Not Attach Compendium DO Not Attach Compendium, Do Not Delete/merge, [facility] 6 18:49:48 urinalysi s, dipstick 2015 016 [email or web address] In-Office Order, Internal Use Only DO Not Attach Compendium DO Not Attach Compendium, Do Not Delete/merge, [facility] 18:49:48 urinalysi s, dipstick 2015 016 In-Office Order, Internal Use Only DO Not Attach Compendium DO Not Attach Compendium, Do Not Delete/merge, [facility] 11:58:48 bacterial vaginosis + vaginitis panel, vaginal 2015 016 ANA LILIA [facility], [address], [address], [place], [address], 6 06:04:50 TSH + free T4, serum 2015 016 ANA LILIA [facility], [address], [address], [place], [address], 6 07:22:45 progester one, serum 2015 016 ANA LILIA [facility], [address], [address], [place], [address], 6 07:22:49 HbA1c (hemoglob in A1c), blood 2015 016 [facility], [facility], [address], [place], [address], 6 07:22:47 CMP, serum or plasma 2015 016 ANA LILIA [facility], [address] [place], [place] [address]dian[address], [address], [place], [address], 6 07:22:46 FSH (follicle -stimulat ing hormone), serum 2015 016 ANA LILIA [facility], [facility] [address], [address], [place], [address], 6 07:22:48 CBC w/ auto diff 2015 016 ANA LILIA [facility], [address] [place], [place] [address]dian[address], [address], [place], [address], 6 07:22:45 estradiol , serum 2015 016 [facility]NA LILIA [facility], [address] [place], [place] [address]jovan [address], [address], [place], [address], 6 07:22:48 urinalysi s, dipstick 2015 016 [email or web address] In-Office Order, Internal Use Only DO Not Attach Compendium DO Not Attach Compendium, Do Not Delete/merge, [id number] 6 16:20:53 culture, urine 2015 016 [facility] LILIA [facility], [facility] mike [address], [address], [place], [address], 6 06:12:59 pap, IG + HPV, cervical 2015 016 ANA LILIA OBRIEN, [address], [address], [place], [address], 6 16:41:55 bacterial vaginosis + vaginitis panel, vaginal 2015 016 ANA LILIA COOPERNARAYAN, [address], [address], [place], [address], 6 06:11:53 HSV (1+2) DNA, qual, PCR, unspecifi ed specimen 2015 016 ANA LILIA COOPERNARAYAN, [address], [address], [place], [address], 6 06:11:54 unlisted lab - kathy 6 species profile, MANJIT 2015 016 ANA LILIA WESLEYJULIETA, [address], [address], [place], [address], 6 06:11:54 test, urine 2014 Jaqui song In-Office Order, Internal Use Only DO Not Attach Compendium DO Not Attach Compendium, Do Not Delete/merge, [id number] 5 09:30:07 CBC w/ auto diff 2014 015 ANA LILIA WESLEYJULIETA, [address], [address], [place], [address], 5 16:34:31 progester one, serum 2014 015 ANA LILIA WESLEYJULIETA, [address], [address], [place], [address], 5 16:34:36 HbA1c (hemoglob in A1c), blood 2014 015 ANA LILIA WESLEYJULIETA, [address], [address], [place], [address], 5 16:34:33 CMP, serum or plasma 2014 015 ANA LILIA [facility], [address], [address], [place], [address], 5 16:34:32 TSH, serum or plasma 2014 015 [email or web address] [facility], [address], [address], [place], [address], 5 16:20:44 FSH (follicle -stimulat ing hormone), serum 2014 015 ANA LILIA [facility], [address], [address], [place], [address], 5 16:34:34 estradiol , serum 2014 015 ANA LILIA [facility], [address], [address], [place], [address], 5 16:34:35 urinalysi s, dipstick 2014 015 [email or web address] In-Office Order, Internal Use Only DO Not Attach Compendium DO Not Attach Compendium, Do Not Delete/merge, [id number] 5 09:30:07 bacterial vaginosis + vaginitis panel, vaginal 2014 015 ANA LILIA [facility], [address], [address], [place], [address], 5 11:41:55 HSV (1+2) DNA, qual, PCR, unspecifi ed specimen 2014 015 ANA LILIA [facility], [address], [address], [place], [address], 5 11:41:56 culture, vaginal/r ectal, streptoco ccus group B 2014 015 [facility], [address] [facility], [address], [place], [address], 5 11:41:56 Referral gastroent erologist referral - colitis and diverticu litis. needs colonosco py and f/u with specialis t 2015 016 [facility], [address] [facility], [address] [place], [address], 6 17:31:59 Procedures None recorded. Surgeries None recorded. Imaging US, transvagi nal 2015 016 [facility], [address] [place], [address], 6 13:50:22 Medication Orders Diflucan 150 mg tablet 2015 016 [id number], [address] [place], [address], 6 18:32:13 Winslow 5 mg-325 mg tablet 2015 016 [id number], [address] [place], [address], 6 18:32:13 ibuprofen 800 mg tablet 2015 016 [id number], [address] [place], [address], 6 18:32:13 nystatin 100,000 unit/gram topical cream 2014 015 [email or web address] [id number], [address] [place], [address], 6 15:38:41 fluconazo le 150 mg tablet 2014 015 [email or web address] [id number], [address] [place], [address], 6 15:38:41 Patient TargetsNo targets recorded. Patient Instructions Encounter Date Encounter Id Patient Instructions Last Modified By Organization Details Last Modified Time 12/20/[id number] candidiasis: care instructions [email or web address] Not available 12/24/2014 10:07:34 11/04/2015 [id number] irritable bowel syndrome: care instructions [email or web address] Not available 11/04/2015 16:20:54 05/13/2016 [id number] chronic pelvic pain: care instructions Not available 05/13/2016 18:32:13 06/03/2016 [id number] uterine fibroids: care instructions [id number] Not available 06/04/2016 09:11:19 06/10/2016 [id number] chronic pelvic pain: care instructions [email or web address] Not available 06/11/2016 12:06:05 uterine fibroids: care instructions Not available 06/11/2016 12:06:05 Reason for Referral colitis and diverticulitis. needs colonoscopy and f/u with specialist Referring Physician: Cosme Gloria, 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, Encounter Date: 11/04/2015 Results Created Date Observation Date Name Description Value Unit Range Abnormal Flag Note LastModifiedBy Organization Detail LastModifiedTime 06/10/2006/10/2016 urina lysis , dipst ick Leukocytes Trace Not Available In-Offi ce Order Internal Use Only DO Not Attach Compendium DO Not Attach Compendium, Do Not Delete/merge, [id number] 06/10/2016 12:30:19 06/10/2006/10/2016 urina lysis , dipst ick Nitrite negati ve Not Available In-Office Order Internal Use Only DO Not Attach Compendium DO Not Attach Compendium, Do Not Delete/merge, [id number] 06/10/2016 12:30:19 06/10/20 16 06/10/2016 urina lysis , dipst ick Urobilinogen .2 Not Available In-Of fice Order Internal Use Only DO Not Attach Compendium DO Not Attach Compendium, Do Not Delete/merge, [facility] 06/10/2016 12:30:06/10/2006/10/2016 urina lysis , dipst ick Protein Negati ve Not Available In-Office Order Internal Use Only DO Not Attach Compendium DO Not Attach Compendium, Do Not Delete/merge, [facility] 06/10/2016 12:30:06/10/2006/10/2016 urina lysis , dipst ick pH 6.5 Not Available In-Office Order Internal Use Only DO Not Attach Compendium DO Not Attach Compendium, Do Not Delete/merge, [facility] 06/10/2016 12:30:06/10/2006/10/2016 urina lysis , dipst ick Blood Negati ve Not Available In-Office Order Internal Use Only DO Not Attach Compendium DO Not Attach Compendium, Do Not Delete/merge, [facility] 06/10/2016 12:30:06/10/2006/10/2016 urina lysis , dipst ick Specific Leola 1.015 Not Available In-Off ice Order Internal Use Only DO Not Attach Compendium DO Not Attach Compendium, Do Not Delete/merge, [facility] 06/10/2016 12:30:06/10/2006/10/2016 urina lysis , dipst ick Ketone Negati ve Not Available In-Office Order Internal Use Only DO Not Attach Compendium DO Not Attach Compendium, Do Not Delete/merge, [facility] 06/10/2016 12:30:06/10/2006/10/2016 urina lysis , dipst ick Bilirubin Negati ve Not Available In-Office Order Internal Use Only DO Not Attach Compendium DO Not Attach Compendium, Do Not Delete/merge, [facility] 06/10/2016 12:30:06/10/2006/10/2016 urina lysis , dipst ick Glucose Negati ve Not Available In-Office Order Internal Use Only DO Not Attach Compendium DO Not Attach Compendium, Do Not Delete/merge, [facility] 06/10/2016 12:30:06/03/2006/03/2016 urina lysis , dipst ick Leukocytes Trace Not Available In-Offi ce Order Internal Use Only DO Not Attach Compendium DO Not Attach Compendium, Do Not Delete/merge, [facility] 06/03/2016 10:34:15 06/03/20 16 06/03/2016 urina lysis , dipst ick Nitrite negati ve Not Available In-Office Order Internal Use Only DO Not Attach Compendium DO Not Attach Compendium, Do Not Delete/merge, [facility] 06/03/2016 10:34:15 06/03/20 16 06/03/2016 urina lysis , dipst ick Urobilinogen .2 Not Available In-Of fice Order Internal Use Only DO Not Attach Compendium DO Not Attach Compendium, Do Not Delete/merge, [facility] 06/03/2016 10:34:06/03/20 16 06/03/2016 urina lysis , dipst ick Protein Negati ve Not Available In-Office Order Internal Use Only DO Not Attach Compendium DO Not Attach Compendium, Do Not Delete/merge, [facility] 06/03/2016 10:34:15 06/03/20 16 06/03/2016 urina lysis , dipst ick pH 5.5 Not Available In-Office Order Internal Use Only DO Not Attach Compendium DO Not Attach Compendium, Do Not Delete/merge, [facility] 06/03/2016 10:34:15 06/03/20 16 06/03/2016 urina lysis , dipst ick Blood Negati ve Not Available In-Office Order Internal Use Only DO Not Attach Compendium DO Not Attach Compendium, Do Not Delete/merge, [facility] 06/03/2016 10:34:15 06/03/20 16 06/03/2016 urina lysis , dipst ick Specific Leola 1.020 Not Available In-Off ice Order Internal Use Only DO Not Attach Compendium DO Not Attach Compendium, Do Not Delete/merge, [facility] 06/03/2016 10:34:15 06/03/20 16 06/03/2016 urina lysis , dipst ick Ketone Negati ve Not Available In-Office Order Internal Use Only DO Not Attach Compendium DO Not Attach Compendium, Do Not Delete/merge, [facility] 06/03/2016 10:34:15 06/03/20 16 06/03/2016 urina lysis , dipst ick Bilirubin Negati ve Not Available In-Office Order Internal Use Only DO Not Attach Compendium DO Not Attach Compendium, Do Not Delete/merge, [facility] 06/03/2016 10:34:15 06/03/20 16 06/03/2016 urina lysis , dipst ick Glucose Negati ve Not Available In-Office Order Internal Use Only DO Not Attach Compendium DO Not Attach Compendium, Do Not Delete/merge, [facility] 06/03/2016 10:34:15 06/03/20 16 06/03/2016 pregn tiny test, urine HCG negati ve Not Available In-Office Order Internal Use Only DO Not Attach Compendium DO Not Attach Compendium, Do Not Delete/merge, [facility] 06/03/2016 10:34:15 05/13/20 16 05/13/2016 urina lysis , dipst ick Leukocytes Negati ve Not Available In-Office Order Internal Use Only DO Not Attach Compendium DO Not Attach Compendium, Do Not Delete/merge, [facility] 05/13/2016 14:56:44 05/13/20 16 05/13/2016 urina lysis , dipst ick Nitrite negati ve Not Available In-Office Order Internal Use Only DO Not Attach Compendium DO Not Attach Compendium, Do Not Delete/merge, [facility] 05/13/2016 14:56:44 05/13/20 16 05/13/2016 urina lysis , dipst ick Urobilinogen .2 Not Available In-Of fice Order Internal Use Only DO Not Attach Compendium DO Not Attach Compendium, Do Not Delete/merge, [facility] 05/13/2016 14:56:44 05/13/20 16 05/13/2016 urina lysis , dipst ick Protein Negati ve Not Available In-Office Order Internal Use Only DO Not Attach Compendium DO Not Attach Compendium, Do Not Delete/merge, [facility] 05/13/2016 14:56:44 05/13/20 16 05/13/2016 urina lysis , dipst ick pH 5.5 Not Available In-Office Order Internal Use Only DO Not Attach Compendium DO Not Attach Compendium, Do Not Delete/merge, [facility] 05/13/2016 14:56:44 05/13/20 16 05/13/2016 urina lysis , dipst ick Blood Negati ve Not Available In-Office Order Internal Use Only DO Not Attach Compendium DO Not Attach Compendium, Do Not Delete/merge, [facility] 05/13/2016 14:56:44 05/13/20 16 05/13/2016 urina lysis , dipst ick Specific Leola 1.030 Not Available In-Off ice Order Internal Use Only DO Not Attach Compendium DO Not Attach Compendium, Do Not Delete/merge, [facility] 05/13/2016 14:56:44 05/13/20 16 05/13/2016 urina lysis , dipst ick Ketone Negati ve Not Available In-Office Order Internal Use Only DO Not Attach Compendium DO Not Attach Compendium, Do Not Delete/merge, [facility] 05/13/2016 14:56:44 05/13/20 16 05/13/2016 urina lysis , dipst ick Bilirubin Negati ve Not Available In-Office Order Internal Use Only DO Not Attach Compendium DO Not Attach Compendium, Do Not Delete/merge, [facility] 05/13/2016 14:56:44 05/13/20 16 05/13/2016 urina lysis , dipst ick Glucose Negati ve Not Available In-Office Order Internal Use Only DO Not Attach Compendium DO Not Attach Compendium, Do Not Delete/merge, [facility] 05/13/2016 14:56:44 11/04/19 16 11/04/2015 urina lysis , dipst ick Leukocytes Trace Not Available In-Offi ce Order Internal Use Only DO Not Attach Compendium DO Not Attach Compendium, Do Not Delete/merge, [facility] 11/04/2015 15:08:08 11/04/19 16 11/04/2015 urina lysis , dipst ick Nitrite negati ve Not Available In-Office Order Internal Use Only DO Not Attach Compendium DO Not Attach Compendium, Do Not Delete/merge, [facility] 11/04/2015 15:08:08 11/04/19 16 11/04/2015 urina lysis , dipst ick Urobilinogen .2 Not Available In-Of fice Order Internal Use Only DO Not Attach Compendium DO Not Attach Compendium, Do Not Delete/merge, [facility] 11/04/2015 15:08:08 11/04/19 16 11/04/2015 urina lysis , dipst ick Protein Negati ve Not Available In-Office Order Internal Use Only DO Not Attach Compendium DO Not Attach Compendium, Do Not Delete/merge, [facility] 11/04/2015 15:08:08 11/04/19 16 11/04/2015 urina lysis , dipst ick pH 5.5 Not Available In-Office Order Internal Use Only DO Not Attach Compendium DO Not Attach Compendium, Do Not Delete/merge, [facility] 11/04/2015 15:08:08 11/04/19 16 11/04/2015 urina lysis , dipst ick Blood Non-He molyze d: Trace Not Available In-Office Order Internal Use Only DO Not Attach Compendium DO Not Attach Compendium, Do Not Delete/merge, [facility] 11/04/2015 15:08:08 11/04/19 16 11/04/2015 urina lysis , dipst ick Specific Leola 1.030 Not Available In-Off ice Order Internal Use Only DO Not Attach Compendium DO Not Attach Compendium, Do Not Delete/merge, [facility] 11/04/2015 15:08:08 11/04/19 16 11/04/2015 urina lysis , dipst ick Ketone Trace Not Available In-Office Order Internal Use Only DO Not Attach Compendium DO Not Attach Compendium, Do Not Delete/merge, [facility] 11/04/2015 15:08:08 11/04/19 16 11/04/2015 urina lysis , dipst ick Bilirubin Negati ve Not Available In-Office Order Internal Use Only DO Not Attach Compendium DO Not Attach Compendium, Do Not Delete/merge, [facility] 11/04/2015 15:08:08 11/04/19 16 11/04/2015 urina lysis , dipst ick Glucose Negati ve Not Available In-Office Order Internal Use Only DO Not Attach Compendium DO Not Attach Compendium, Do Not Delete/merge, [facility] 11/04/2015 15:08:08 12/21/19 15 12/20/2014 pregn tiny [...] 15 12/20/2014 urina lysis , dipst ick Nitrite negati ve Not Available In-Office Order Internal Use Only DO Not Attach Compendium DO Not Attach Compendium, Do Not Delete/merge, 12/20/2014 15:38:49 12/21/19 15 12/20/2014 urina lysis , dipst ick Urobilinogen .2 [...] 12/21/1912/20/2014 urina lysis , dipst ick Specific Leola 1.020 Not Available In-Off ice Order Internal Use Only DO Not Attach Compendium DO Not Attach Compendium, Do Not Delete/merge, [id number] 12/20/2014 15:38:49 12/21/1912/20/2014 urina lysis , dipst ick Ketone Negati ve Not Available In-Office Order Internal Use Only DO Not Attach Compendium DO Not Attach Compendium, Do Not Delete/merge, [facility] 12/20/2014 15:38:49 12/21/19 15 12/20/2014 urina lysis , dipst ick Bilirubin Negati ve Not Available In-Office Order Internal Use Only DO Not Attach Compendium DO Not Attach Compendium, Do Not Delete/merge, [facility] 12/20/2014 15:38:49 12/21/1912/20/2014 urina lysis , dipst ick Glucose Negati ve Not Available In-Office Order Internal Use Only DO Not Attach Compendium DO Not Attach Compendium, Do Not Delete/merge, [id number] 12/20/2014 15:38:49 12/21/1912/20/2014 urina lysis , dipst ick Appearance Clear Not Available In-Offi ce Order Internal Use Only DO Not Attach Compendium DO Not Attach Compendium, Do Not Delete/merge, [id number] 12/20/2014 15:38:49 12/21/1912/20/2014 urina lysis , dipst [...] DO Not Attach Compendium, Do Not Delete/merge, [id number] 12/10/2014 11:59:06 12/11/19 15 12/10/2014 urina lysis , dipst ick Protein Negati ve Not Available In-Office Order Internal Use Only DO Not Attach Compendium DO Not Attach Compendium, Do Not Delete/merge, [id number] 12/10/2014 11:59:06 12/11/19 15 12/10/2014 urina lysis , dipst ick pH 7.0 Not Available In-Office Order Internal Use Only DO Not Attach Compendium DO Not Attach Compendium, Do Not Delete/merge, [id number] 12/10/2014 11:59:06 12/11/19 15 12/10/2014 urina lysis , dipst ick Blood Non-He molyze d: Trace Not Available In-Office Order Internal Use Only DO Not Attach Compendium DO Not Attach Compendium, Do Not Delete/merge, [id number] 12/10/2014 11:59:06 12/11/19 15 12/10/2014 urina lysis , dipst ick Specific Leola 1.015 Not Available In-Off ice Order Internal Use Only DO Not Attach Compendium DO Not Attach Compendium, Do Not Delete/merge, 12/10/2014 11:59:06 12/11/19 15 12/10/2014 urina lysis , dipst ick Ketone Negati ve Not Available In-Office Order Internal Use Only DO Not Attach Compendium DO Not Attach Compendium, Do Not Delete/merge, [id number] 12/10/2014 11:59:06 12/11/19 15 12/10/2014 urina lysis , dipst ick Bilirubin Negati ve Not Available In-Office Order Internal Use Only DO Not Attach Compendium DO Not Attach Compendium, Do Not Delete/merge, 12/10/2014 11:59:06 12/11/19 15 12/10/2014 urina lysis , dipst ick Glucose Negati ve Not Available In-Office Order Internal Use Only DO Not Attach Compendium DO Not Attach Compendium, Do Not Delete/merge, [id number] 12/10/2014 11:59:06 12/21/19 15 12/25/2014 bacte rial vagin osis + vagin itis panel , vagin al atopobium vaginae LOW - 0 score Not Available [facility] ([facility]) [address] [place], [address], 12/26/2014 11:41:55 12/21/19 15 12/25/2014 bacte rial vagin osis + vagin itis panel , vagin al bvab 2 LOW - 0 score Not Available [facility] ([facility]) [address] [place], [address], 12/26/2014 11:41:55 12/21/1912/25/2014 bacte rial vagin osis [...] IS NOT NECES DARÍO. Not Available [facility] ([facility]) [address] [facility], [place], [address], 12/26/2014 11:41:55 12/21/1912/25/2014 bacte rial vagin osis + vagin itis panel , vagin al kathy albicans, MANJIT NEGATI VE negati ve Not Available [facility] ([facility]) [address] [facility], [place], [address], 12/26/2014 11:41:55 12/21/19 15 12/25/2014 bacte rial [...] IS NOT NECES DARÍO. Not Available [facility] ([facility]) [address] [place], [address], 12/26/2014 11:41:55 12/21/1912/26/2014 bacte rial vagin osis + vagin itis panel , vagin al trich vag by MANJIT NEGATI VE negati ve Not Available [facility] ([facility]) [address] [place], [address], 12/26/2014 11:41:55 12/21/1912/26/2014 bacte rial vagin osis + vagin itis panel , vagin al chlamydia trachomatis, MANJIT NEGATI VE negati ve Not Available [facility] ([facility]) [address] [place], [address], 12/26/2014 11:41:55 12/21/1912/26/2014 bacte rial vagin osis + vagin itis panel , vagin al neisseria gonorrhoeae, MANJIT NEGATI VE negati ve Not Available [facility] ([facility]) [address] [place], [address], 12/26/2014 11:41:55 12/21/1912/24/2014 HSV (1+2) DNA, qual, PCR, unspe cifie d speci men hsv 1 MANJIT NEGATI VE negati ve Not Available [facility] ([facility]) [address] [place], [address], 12/26/2014 11:41:56 12/21/19 15 12/24/2014 HSV (1+2) DNA, qual, PCR, unspe cifie d speci men hsv 2 MANJIT NEGATI VE negati ve Not Available [facility] ([facility]) [address] [facility], [place], [address], 12/26/2014 11:41:56 12/21/19 15 12/23/2014 cultu re, [...] LINES , MMWR, 2009) Not Available [facility] ([facility]) [address] [facility], [place], [address], 12/26/2014 11:41:56 12/21/19 15 12/21/2014 CBC w/ auto diff WBC 5.5 x10e3 /uL 3.4-10 .8 Not Available [facility] ([facility]) [address] [facility], [place], [address], 12/26/2014 16:34:31 12/21/19 15 12/21/2014 CBC w/ auto diff RBC 4.68 x10e6 /uL 3.77-5 .28 Not Available [facility] ([facility]) [address] [place], [address], 12/26/2014 16:34:31 12/21/19 15 12/21/2014 CBC w/ auto diff hemoglobin 13.9 g/dL 11.1-1 5.9 Not Available [facility] ([facility]) [address] [place], [address], 12/26/2014 16:34:31 12/21/19 15 12/21/2014 CBC w/ auto diff hematocrit 41.5 % 34.0-4 6.6 Not Available [facility] ([facility]) [address] [facility], [place], [address], 12/26/2014 16:34:31 12/21/19 15 12/21/2014 CBC w/ auto diff MCV 89 fL 79-97 Not Available [facility] ([facility]) [address] [place], [address], 12/26/2014 16:34:31 12/21/19 15 12/21/2014 CBC w/ auto diff MCH 29.7 pg 26.6-3 3.0 Not Available [facility] ([facility]) [address] [facility], [place], [address], 12/26/2014 16:34:31 12/21/19 15 12/21/2014 CBC w/ auto diff MCHC 33.5 g/dL 31.5-3 5.7 Not Available [facility] ([facility]) [address] [facility], [place], [address], 12/26/2014 16:34:31 12/21/19 15 12/21/2014 CBC w/ auto diff RDW 13.2 % 12.3-1 5.4 Not Available [facility] ([facility]) [address] [facility], [place], [address], 12/26/2014 16:34:31 12/21/1912/21/2014 CBC w/ auto diff platelets 298 x10e3 /uL 150-37 9 Not Available [facility] ([facility]) [address] [place], [address], 12/26/2014 16:34:31 12/21/19 15 12/21/2014 CBC w/ auto diff neutrophils 55 % Not Available [facility] ([facility]) 0 [place], [address], 12/26/2014 16:34:31 12/21/19 15 12/21/2014 CBC w/ auto diff lymphs 33 % Not Available [facility] ([facility]) [address] [place], [address], 12/26/2014 16:34:31 12/21/19 15 12/21/2014 CBC w/ auto diff monocytes 8 % Not Available [facility] ([facility]) [address] [place], [address], 12/26/2014 16:34:31 12/21/19 15 12/21/2014 CBC w/ auto diff eos 3 % Not Available [facility] ([facility]) [address] [place], [address], 12/26/2014 16:34:31 12/21/19 15 12/21/2014 CBC w/ auto diff basos 1 % Not Available [facility] ([facility]) [address] [place], [address], 12/26/2014 16:34:31 12/21/19 15 12/21/2014 CBC w/ auto diff neutrophils (absolute) 3.1 x10e3 /uL 1.4-7. 0 Not Available [facility] ([facility]) [address] [place], [address], 12/26/2014 16:34:31 12/21/1912/21/2014 CBC w/ auto diff lymphs (absolute) 1.8 x10e3 /uL 0.7-3. 1 Not Available [facility] ([facility]) [address] [place] [address], [address], 12/26/2014 16:34:31 12/21/19 15 12/21/2014 CBC w/ auto diff monocytes(ab solute) 0.4 x10e3 /uL 0.1-0. 9 Not Available [facility] ([facility]) [address] [place], [address], 12/26/2014 16:34:31 12/21/19 15 12/21/2014 CBC w/ auto diff eos (absolute) 0.2 x10e3 /uL 0.0-0. 4 Not Available [facility] ([facility]) [address] [place], [address], 12/26/2014 16:34:31 12/21/19 15 12/21/2014 CBC w/ auto diff baso (absolute) 0.0 x10e3 /uL 0.0-0. 2 Not Available [facility] ([facility]) [address] [place], [address], 12/26/2014 16:34:31 12/21/19 15 12/21/2014 CBC w/ auto diff immature granulocytes 0 % Not Available [facility] ([facility]) [address] [place], [address], 12/26/2014 16:34:31 12/21/1912/21/2014 CBC w/ auto diff immature grans (abs) 0.0 x10e3 /uL 0.0-0. 1 Not Available [facility] ([facility]) [address] [place], [address], 12/26/2014 16:34:31 12/21/1912/21/2014 CMP, serum or plasm a glucose, serum 99 mg/dL 65-99 Not Available [facility] ([facility]) [address] [place], [address], 12/26/2014 16:34:32 12/21/1912/21/2014 CMP, serum or plasm a BUN 13 mg/dL 6-24 Not Available [facility] ([facility]) [address] [place], [address], 12/26/2014 16:34:32 12/21/19 15 12/21/2014 CMP, serum or plasm a creatinine, serum 0.81 mg/dL 0.57-1 .00 Not Available [facility] ([facility]) [address] [place], [address], 12/26/2014 16:34:32 12/21/19 15 12/21/2014 CMP, serum or plasm a eGFR if nonafricn AM 85 mL/mi n/1.7 3 >59 Not Available [facility] ([facility]) [address] [place], [address], 12/26/2014 16:34:32 12/21/19 15 12/21/2014 CMP, serum or plasm a eGFR if africn AM 98 mL/mi n/1.7 3 >59 Not Available [facility] ([facility]) [address] [place], [address], 12/26/2014 16:34:32 12/21/19 15 12/21/2014 CMP, serum or plasm a BUN/creatini ne ratio 16 9-23 Not Available [facility] ([facility]) [address] [place], [address], 12/26/2014 16:34:32 12/21/19 15 12/21/2014 CMP, serum or plasm a sodium, serum 140 mmol/ L 134-14 4 Not Available [facility] ([facility]) [address] [place], [address], 12/26/2014 16:34:32 12/21/19 15 12/21/2014 CMP, serum or plasm a potassium, serum 4.3 mmol/ L 3.5-5. 2 Not Available [facility] ([facility]) [address] [place], [address], 12/26/2014 16:34:32 12/21/19 15 12/21/2014 CMP, serum or plasm a chloride, serum 97 mmol/ L 97-108 Not Available [facility] ([facility]) [address] [place], [address], 12/26/2014 16:34:32 12/21/1912/21/2014 CMP, serum or plasm a carbon dioxide, total 27 mmol/ L 18-29 Not Available [facility] ([facility]) [address] [facility] [place], [address], 12/26/2014 16:34:32 12/21/1912/21/2014 CMP, serum or plasm a calcium, serum 10.3 mg/dL 8.7-10 .2 high Not Available [facility] ([facility]) [address] [facility] [place], [address], 12/26/2014 16:34:32 12/21/1912/21/2014 CMP, serum or plasm a protein, total, serum 7.2 g/dL 6.0-8. 5 Not Available [facility] ([facility]) [address] [facility] [place], [address], 12/26/2014 16:34:32 12/21/1912/21/2014 CMP, serum or plasm a albumin, serum 4.7 g/dL 3.5-5. 5 Not Available [facility] ([facility]) [address] [facility] [place], [address], 12/26/2014 16:34:32 12/21/1912/21/2014 CMP, serum or plasm a globulin, total 2.5 g/dL 1.5-4. 5 Not Available [facility] ([facility]) [address] [facility] [place], [address], 12/26/2014 16:34:32 12/21/1912/21/2014 CMP, serum or plasm a A/G ratio 1.9 1.1-2. 5 Not Available [facility] ([facility]) [address] [facility] [place], [address], 12/26/2014 16:34:32 12/21/19 15 12/21/2014 CMP, serum or plasm a bilirubin, total 0.5 mg/dL 0.0-1. 2 Not Available [facility] ([facility]) [address] [place], [address], 12/26/2014 16:34:32 12/21/19 15 12/21/2014 CMP, serum or plasm a alkaline phosphatase, S 80 IU/L 39-117 Not Available [facility] ([facility]) [address] [facility], [place], [address], 12/26/2014 16:34:32 12/21/19 15 12/21/2014 CMP, serum or plasm a AST (SGOT) 26 IU/L 0-40 Not Available [facility] ([facility]) [address] [place], [address], 12/26/2014 16:34:32 12/21/19 15 12/21/2014 CMP, serum or plasm a ALT (SGPT) 25 IU/L 0-32 Not Available [facility] ([facility]) [address] [facility], [place], [address], 12/26/2014 16:34:32 12/21/19 15 12/20/2014 yfn (risk of ovari an malig ezio algor ithm score ), serum (lizzie enopa usal) premenopausa l interp: low COMMEN T IF THE PATIE NT IS PREME NOPAU BERNADETTE, THEN THE PREME NOPAU BERNADETTE YNF SCORE OF LESS THAN 1.31 IS CONSI STENT WITH A LOW LIKEL IHOOD OF FINDI NG A RIGOBERTO EZIO ON SURGE RY. Not Available [facility] ([facility]) [address] [place], [address], 12/26/2014 16:34:32 12/21/19 15 12/20/2014 yfn (risk [...] HOLGUIN ON SURGE RY. Not Available [facility] ([facility]) [address] [facility], [place], [address], 12/26/2014 16:34:32 12/21/19 15 12/20/2014 yfn (risk [...] DIAGN OSTIC ASSAY . Not Available [facility] ([facility]) [address] [facility], [place], [address], 12/26/2014 16:34:32 12/21/19 15 12/24/2014 yfn (risk of ovari an malig ezio algor ithm score ), serum (lizzie enopa usal) he4 45 pmol/ L 0-150 FUJIR EBIO EIA METHO DOLOG Y . CA125 VALUE S OBTAI NELLY WITH DIFFE RENT ASSAY METHO DS OR KITS CANNO T BE USED INTER LARSON EABLY . Not Available [facility] ([facility]) [address] [facility], [place], [address], 12/26/2014 16:34:32 12/21/19 15 12/26/2014 yfn (risk of ovari an malig ezio algor ithm score ), serum (lizzie enopa usal) cancer antigen 125 (Ca125) 16.2 U/mL 0.0-35 .0 ABBOT T CMIA METHO DOLOG Y Not Available [facility] ([facility]) [address] [place], [address], 12/26/2014 16:34:32 12/21/19 15 12/26/2014 yfn (risk of ovari an malig ezio algor ithm score ), serum (lizzie enopa usal) premenopausa l yfn 0.59 see below Not Available [facility] ([facility]) [address] [place], [address], 12/26/2014 16:34:32 12/21/19 15 12/26/2014 yfn (risk of ovari an malig ezio algor ithm score ), serum (lizize enopa usal) postmenopaus al yfn 1.10 see below Not Available [facility] ([facility]) [address] [facility], [place], [address], 12/26/2014 16:34:32 12/21/19 15 12/21/2014 HbA1c (hemo globi n A1c), blood hemoglobin A1C 5.3 % 4.8-5. 6 . INCRE ASED RISK FOR DIABE SHON: 5.7 - 6.4 DIABE SHON: >6.4 GLYCE HARJINDER CONTR OL FOR ADULT S WITH DIABE SHON: <7.0 Not Available [facility] ([facility]) [address] [place], [address], 12/26/2014 16:34:33 12/21/1912/21/2014 ca 125, serum cancer antigen (Ca) 125 15.6 U/mL 0.0-34 .0 FREDY ECLIA METHO DOLOG Y Not Available [facility] ([facility]) [address] [place], [address], 12/26/2014 16:34:34 12/21/1912/21/2014 FSH (foll icle- stimu latin g hormo ne), serum FSH 88.6 mIU/m L FOLLI CULAR PHASE 3.5 - 12.5 OVULA TION PHASE 4.7 - 21.5 LUTEA L PHASE 1.7 - 7.7 POSTM ENOPA USAL 25.8 - 134.8 Not Available [facility] ([facility]) [address] [place], [address], 12/26/2014 16:34:34 12/21/19 15 12/21/2014 estra diol, serum estradiol <5.1 pg/mL ADULT FEMAL E: FOLLI CULAR PHASE 12.5 - 166.0 OVULA TION PHASE 85.8 - 498.0 LUTEA L PHASE 43.8 - 211.0 POSTM ENOPA USAL <6.0 - 54.7 PREGN TINY 1ST TRIME STER 215.0 - >4300 .0 GIRLS (1-10 YEARS ) 6.0 - 27.0 FREDY ECLIA METHO DOLOG Y Not Available [facility] ([facility]) [address] [place], [address], 12/26/2014 16:34:35 12/21/1912/21/2014 TSH, ultra -sens itive , serum TSH 1.140 uIU/m L 0.450- 4.500 Not Available [facility] ([facility]) [address] [place], [address], 12/26/2014 16:34:36 12/21/1912/21/2014 proge stero ne, serum progesterone 0.4 NG/mL FOLLI CULAR PHASE 0.2 - 1.5 LUTEA L PHASE 1.7 - 27.0 OVULA TION PHASE 0.8 - 3.0 PREGN ANT FIRST TRIME STER 8.8 - 48.6 SECON D TRIME STER 12.4 - 75.8 THIRD TRIME STER 58.5 - 222.3 POSTM ENOPA USAL 0.1 - 0.8 Not Available [facility] ([facility]) [address] [place], [address], 12/26/2014 16:34:36 11/04/19 16 11/05/2015 TSH + free T4, serum TSH 1.100 uIU/m L 0.450- 4.500 Not Available [facility] ([facility]) [address] [facility] [place], [address], 11/05/2015 07:22:45 11/04/19 16 11/05/2015 TSH + free T4, serum T4,free(dire ct) 1.22 NG/dL 0.82-1 .77 Not Available [facility] ([facility]) [address] [facility], [place], [address], 11/05/2015 07:22:45 11/04/19 16 11/05/2015 CBC w/ auto diff WBC 5.5 x10e3 /uL 3.4-10 .8 Not Available [facility] ([facility]) [address] [facility], [place], [address], 11/05/2015 07:22:45 11/04/19 16 11/05/2015 CBC w/ auto diff RBC 4.75 x10e6 /uL 3.77-5 .28 Not Available [facility] ([facility]) [address] [facility], [place], [address], 11/05/2015 07:22:45 11/04/19 16 11/05/2015 CBC w/ auto diff hemoglobin 13.9 g/dL 11.1-1 5.9 Not Available [facility] ([facility]) [address] [place], [address], 11/05/2015 07:22:45 11/04/19 16 11/05/2015 CBC w/ auto diff hematocrit 40.8 % 34.0-4 6.6 Not Available [facility] ([facility]) [address] [place], [address], 11/05/2015 07:22:45 11/04/19 16 11/05/2015 CBC w/ auto diff MCV 86 fL 79-97 Not Available [facility] ([facility]) [address] [facility], [place], [address], 11/05/2015 07:22:45 11/04/19 16 11/05/2015 CBC w/ auto diff MCH 29.3 pg 26.6-3 3.0 Not Available [facility] ([facility]) [address] [facility], [place], [address], 11/05/2015 07:22:45 11/04/19 16 11/05/2015 CBC w/ auto diff MCHC 34.1 g/dL 31.5-3 5.7 Not Available [facility] ([facility]) [address] [facility], [place], [address], 11/05/2015 07:22:45 11/04/19 16 11/05/2015 CBC w/ auto diff RDW 13.0 % 12.3-1 5.4 Not Available [facility] ([facility]) [address] [facility], [place], [address], 11/05/2015 07:22:45 11/04/19 16 11/05/2015 CBC w/ auto diff platelets 408 x10e3 /uL 150-37 9 above high normal Not Available [facility] ([facility]) [address] [facility], [place], [address], 11/05/2015 07:22:45 11/04/19 16 11/05/2015 CBC w/ auto diff neutrophils 51 % Not Available [facility] ([facility]) [address] [facility], [place], [address], 11/05/2015 07:22:45 11/04/19 16 11/05/2015 CBC w/ auto diff lymphs 40 % Not Available [facility] ([facility]) [address] [facility], [place], [address], 11/05/2015 07:22:45 11/04/19 16 11/05/2015 CBC w/ auto diff monocytes 7 % Not Available [facility] ([facility]) [address] [place], [address], 11/05/2015 07:22:45 11/04/19 16 11/05/2015 CBC w/ auto diff eos 2 % Not Available [facility] ([facility]) [address] [place], [address], 11/05/2015 07:22:45 11/04/19 16 11/05/2015 CBC w/ auto diff basos 0 % Not Available [facility] ([facility]) [address] [place], [address], 11/05/2015 07:22:45 11/04/19 16 11/05/2015 CBC w/ auto diff 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 0 Not Available [facility] ([facility]) [address] [place], [address], 11/05/2015 07:22:45 11/04/19 16 11/05/2015 CBC w/ auto diff lymphs (absolute) 2.2 x10e3 /uL 0.7-3. 1 Not Available [facility] ([facility]) [address] [place], [address], 11/05/2015 07:22:45 11/04/19 16 11/05/2015 CBC w/ auto diff monocytes(ab solute) 0.4 x10e3 /uL 0.1-0. 9 Not Available [facility] ([facility]) [address] [place], [address], 11/05/2015 07:22:45 11/04/19 16 11/05/2015 CBC w/ auto diff eos (absolute) 0.1 x10e3 /uL 0.0-0. 4 Not Available [facility] ([facility]) [address] [place], [address], 11/05/2015 07:22:45 11/04/19 16 11/05/2015 CBC w/ auto diff baso (absolute) 0.0 x10e3 /uL 0.0-0. 2 Not Available [facility] ([facility]) [address] [facility], [place], [address], 11/05/2015 07:22:45 11/04/19 16 11/05/2015 CBC w/ auto diff immature granulocytes 0 % Not Available [facility] ([facility]) [address] [place], [address], 11/05/2015 07:22:45 11/04/19 16 11/05/2015 CBC w/ auto diff immature grans (abs) 0.0 x10e3 /uL 0.0-0. 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 Not Available [facility] ([facility]) [address] [place], [address], 11/05/2015 07:22:45 11/04/19 16 11/05/2015 CMP, serum or plasm a glucose, serum 108 mg/dL 65-99 above high normal Not Available [facility] ([facility]) [address] [place], [address], 11/05/2015 07:22:46 11/04/19 16 11/05/2015 CMP, serum or plasm a BUN 11 mg/dL 6-24 Not Available [facility] ([facility]) [address] [facility] [place], [address], 11/05/2015 07:22:46 11/04/19 16 11/05/2015 CMP, serum or plasm a creatinine, serum 0.76 mg/dL 0.57-1 .00 Not Available [facility] ([facility]) [address] [facility] [place], [address], 11/05/2015 07:22:46 11/04/19 16 11/05/2015 CMP, serum or plasm a eGFR if nonafricn AM 91 mL/mi n/1.7 3 >59 Not Available [facility] ([facility]) [address] [facility] [place], [address], 11/05/2015 07:22:46 11/04/19 16 11/05/2015 CMP, serum or plasm a eGFR if africn AM 105 mL/mi n/1.7 3 >59 Not Available [facility] ([facility]) [address] [facility] [place], [address], 11/05/2015 07:22:46 11/04/19 16 11/05/2015 CMP, serum or plasm a BUN/creatini ne ratio 14 9-23 Not Available [facility] ([facility]) [address] [facility] [place], [address], 11/05/2015 07:22:46 11/04/19 16 11/05/2015 CMP, serum or plasm a sodium, serum 143 mmol/ L 134-14 4 Not Available [facility] ([facility]) [address] [facility] [place], [address], 11/05/2015 07:22:46 11/04/19 16 11/05/2015 CMP, serum or plasm a potassium, serum 4.5 mmol/ L 3.5-5. 2 Not Available [facility] ([facility]) [address] [facility] [place], [address], 11/05/2015 07:22:46 11/04/19 16 11/05/2015 CMP, serum or plasm a chloride, serum 102 mmol/ L 97-108 Not Available [facility] ([facility] [address] [place], [address], 11/05/2015 07:22:46 11/04/19 16 11/05/2015 CMP, serum or plasm a carbon dioxide, total 25 mmol/ L 18-29 Not Available [facility] ([facility]) [address] [place], [address], 11/05/2015 07:22:46 11/04/19 16 11/05/2015 CMP, serum or plasm a calcium, serum 9.9 mg/dL 8.7-10 .2 Not Available [facility] ([facility]) [address] [place], [address], 11/05/2015 07:22:46 11/04/19 16 11/05/2015 CMP, serum or plasm a protein, total, serum 7.4 g/dL 6.0-8. 5 Not Available [facility] ([facility]) [address] [facility], [place], [address], 11/05/2015 07:22:46 11/04/19 16 11/05/2015 CMP, serum or plasm a albumin, serum 4.6 g/dL 3.5-5. 5 Not Available [facility] ([facility]) [address] [facility] [place], [address], 11/05/2015 07:22:46 11/04/1911/05/2015 CMP, serum or plasm a globulin, total 2.8 g/dL 1.5-4. 5 Not Available [facility] ([facility]) [address] [facility] [place], [address], 11/05/2015 07:22:46 11/04/19 16 11/05/2015 CMP, serum or plasm a A/G ratio 1.6 1.1-2. 5 Not Available [facility] ([facility]) [address] [place], [address], 11/05/2015 07:22:46 11/04/19 16 11/05/2015 CMP, serum or plasm a bilirubin, total 0.3 mg/dL 0.0-1. 2 Not Available [facility] ([facility]) [address] [place], [address], 11/05/2015 07:22:46 11/04/19 16 11/05/2015 CMP, serum or plasm a alkaline phosphatase, S 84 IU/L 39-117 Not Available [facility] ([facility]) [address] [place], [address], 11/05/2015 07:22:46 11/04/19 16 11/05/2015 CMP, serum or plasm a AST (SGOT) 24 IU/L 0-40 Not Available [facility] ([facility]) [address] [place], [address], 11/05/2015 07:22:46 11/04/19 16 11/05/2015 CMP, serum or plasm a ALT (SGPT) 28 IU/L 0-32 Not Available [facility] ([facility]) [address] [place], [address], 11/05/2015 07:22:46 11/04/19 16 11/05/2015 HbA1c (hemo globi n A1c), blood hemoglobin A1C 5.5 % 4.8-5. 6 PRE-D IABET ES: 5.7 - 6.4 DIABE SHON: >6.4 GLYCE HARJINDER CONTR OL FOR ADULT S WITH DIABE SHON: <7.0 Not Available [facility] ([facility]) [address] [place], [address], 11/05/2015 07:22:47 11/04/19 16 11/05/2015 FSH (foll icle- stimu latin g hormo ne), serum FSH 102.7 mIU/m L FOLLI CULAR PHASE 3.5 - 12.5 OVULA TION PHASE 4.7 - 21.5 LUTEA L PHASE 1.7 - 7.7 POSTM ENOPA USAL 25.8 - 134.8 Not Available [facility] ([facility]) [address] [facility], [place], [address], 11/05/2015 07:22:47 11/04/19 16 11/05/2015 estra diol, serum estradiol 9.1 pg/mL ADULT FEMAL E: FOLLI CULAR PHASE 12.5 - 166.0 OVULA TION PHASE 85.8 - 498.0 LUTEA L PHASE 43.8 - 211.0 POSTM ENOPA USAL <6.0 - 54.7 PREGN TINY 1ST TRIME STER 215.0 - >4300 .0 GIRLS (1-10 YEARS ) 6.0 - 27.0 FREDY ECLIA METHO DOLOG Y Not Available [facility] ([facility]) [address] [facility], [place], [address], 11/05/2015 07:22:48 11/04/19 16 11/05/2015 proge stero ne, serum progesterone 0.3 NG/mL FOLLI CULAR PHASE 0.2 - 1.5 LUTEA L PHASE 1.7 - 27.0 OVULA TION PHASE 0.8 - 3.0 PREGN ANT FIRST TRIME STER 8.8 - 48.6 SECON D TRIME STER 12.4 - 75.8 THIRD TRIME STER 58.5 - 222.3 POSTM ENOPA USAL 0.1 - 0.8 Not Available [facility] ([facility]) [address] [facility], [place], [address], 11/05/2015 07:22:49 11/04/19 16 11/06/2015 cultu re, urine urine culture, routine FINAL REPORT Not Available [facility] ([facility]) [address] [facility], [place], [address], 11/06/2015 06:12:59 11/04/19 16 11/06/2015 cultu re, urine result 1 FORD Gambino MIXED UROGE NITAL CRISTI 10,00 0-25, 000 COLON Y FORMI NG UNITS PER ML Not Available [facility] ([facility]) [address] [place], [address], 11/06/2015 06:12:59 11/04/19 16 11/05/2015 pap, IG + HPV, cervi alon diagnosis: FORD VALADEZ FOR INTRA EPITH ELIAL LESIO N AND RIGOBERTO HOLGUIN . Not Available [facility] ([facility]) [address] [place], [address], 11/07/2015 16:41:55 11/04/19 16 11/05/2015 pap, IG + HPV, cervi alon specimen adequacy: FORD Gambino SATIS FACTO RY FOR EVALU ATION . ENDOC ERVIC AL AND/O R SQUAM OUS METAP LASTI C CELLS (ENDO CERVI ALON COMPO NENT) ARE PRESE NT. Not Available [facility] ([facility]) [address] [place], [address], 11/07/2015 16:41:55 11/04/19 16 11/05/2015 pap, IG + HPV, cervi alon clinician provided ICD10: FORD Gambino Z01.4 19 Not Available [facility] ([facility]) [address] [place], [address], 11/07/2015 16:41:55 11/04/19 16 11/05/2015 pap, IG + HPV, cervi alon performed by: FORD GIVENS CYTOT KEYANA Gambino (ASCP ) Not Available [facility] ([facility]) [address] [place], [address], 11/07/2015 16:41:55 11/04/19 16 11/05/2015 pap, IG + HPV, cervi alon . . Not Available [facility] ([facility]) [address] [place], [address], 11/07/2015 16:41:55 11/04/19 16 11/05/2015 pap, IG [...] TS DO OCCUR . Not Available [facility] ([facility]) [address] [place], [address], 11/07/2015 16:41:55 11/04/19 16 11/05/2015 pap, IG + HPV, cervi alon test methodology: FORD T THIS LIQUI D BASED THINP REP(R ) PAP TEST WAS SCREE NELLY WITH THE USE OF AN IMAGE GUIDE Diana [place]. Not Available [facility] ([facility]) [address] [place], [address], 11/07/2015 16:41:55 11/04/19 16 11/07/2015 pap, IG + HPV, cervi alon HPV aptima NEGATI VE negati ve THIS TEST DETEC TS FOURT EEN HIGH- RISK HPV TYPES (16/1 8/31/ 33/35 /39/4 5/ 51/52 /56/5 8/59/ 66/68 ) WITHO UT DIFFE RENTI ATION . Not Available [facility] ([facility]) [address] [facility], [place], [address], 11/07/2015 16:41:55 11/04/19 16 11/06/2015 bacte rial vagin osis + vagin itis panel , vagin al trich vag by MANJIT NEGATI VE negati ve Not Available [facility] ([facility]) [address] [place], [address], 11/08/2015 06:11:53 11/04/19 16 11/07/2015 bacte rial vagin osis + vagin itis panel , vagin al atopobium vaginae LOW - 0 score Not Available [facility] ([facility]) [address] [facility], [place], [address], 11/08/2015 06:11:53 11/04/19 16 11/07/2015 bacte rial vagin osis + vagin itis panel , vagin al bvab 2 LOW - 0 score Not Available [facility] ([facility]) [address] [facility], [place], [address], 11/08/2015 06:11:53 11/04/19 16 11/07/2015 bacte rial [...] IS NOT NECES DARÍO. Not Available [facility] ([facility]) [address] [facility], [place], [address], 11/08/2015 06:11:53 11/04/19 16 11/07/2015 bacte rial vagin osis + vagin itis panel , vagin al kathy albicans, MANJIT NEGATI VE negati ve Not Available [facility] ([facility]) [address] [place], [address], 11/08/2015 06:11:53 11/04/19 16 11/07/2015 bacte rial [...] IDENT IFIED IN CASES OF VAGIN AL JT DIASI S HAVE DECRE ASED SUSCE PTIBI LITY TO FLUCO NAZOL E. Not Available [facility] ([facility]) [address] [place], [address], 11/08/2015 06:11:53 11/04/19 16 11/07/2015 bacte rial vagin osis + vagin itis panel , vagin al chlamydia trachomatis, MANJIT NEGATI VE negati ve Not Available [facility] ([facility]) [address] [place], [address], 11/08/2015 06:11:53 11/04/19 16 11/07/2015 bacte rial vagin osis + vagin itis panel , vagin al neisseria gonorrhoeae, MANJIT NEGATI VE negati ve Not Available [facility] ([facility]) [address] [place], [address], 11/08/2015 06:11:53 11/04/19 16 11/07/2015 STI panel kathy albicans, MANJIT TNP DUPLI CLAUDIA PROCE DURE ORDER ED. Not Available [facility] ([facility]) [address] [place], [address], 11/08/2015 06:11:54 11/04/19 16 11/07/2015 STI panel kathy glabrata, MANJIT TNP DUPLI CLAUDIA PROCE DURE ORDER ED. Not Available [facility] ([facility]) [address] [facility], [place], [address], 11/08/2015 06:11:54 11/04/19 16 11/07/2015 STI panel kathy tropicalis, MANJIT NEGATI VE negati ve Not Available [facility] ([facility]) [address] [place], [address], 11/08/2015 06:11:54 11/04/19 16 11/07/2015 STI panel kathy parapsilosis , MANJIT NEGATI VE negati ve Not Available [facility] ([facility]) [address] [place], [address], 11/08/2015 06:11:54 11/04/19 16 11/07/2015 STI panel kathy lusitaniae, MANJIT NEGATI VE negati ve Not Available [facility] ([facility]) [address] [place], [address], 11/08/2015 06:11:54 11/04/19 16 11/07/2015 STI panel kathy krusei, MANJIT NEGATI VE negati ve THIS TEST WAS DEVEL JIMIED AND ITS PERFO RMANC E DANIELA CTERI STICS DETER MINED BY [facility]. IT HAS NOT BEEN CLEAR ED OR APPRO KARSON BY THE FOOD AND DRUG ADMIN ISTRA TION. THE FDA HAS DETER MINED THAT SUCH CLEAR ANCE OR APPRO GABRIELLA IS NOT NECES DARÍO. Not Available [facility] ([facility]) [address] [facility], [place], [address], 11/08/2015 06:11:54 11/04/19 16 11/06/2015 HSV (1+2) DNA, qual, PCR, unspe cifie d speci men hsv 1 MANJIT NEGATI VE negati ve Not Available [facility] ([facility]) [address] [place], [address], 11/08/2015 06:11:54 11/04/19 16 11/06/2015 HSV (1+2) DNA, qual, PCR, unspe cifie d speci men hsv 2 MANJIT NEGATI VE negati ve Not Available [facility] ([facility]) [address] [place], [address], 11/08/2015 06:11:54 12/04/19 16 12/04/2015 yfn (risk [...] EZIO ON SURGE RY. Not Available [facility] ([facility]) [address] [place], [address], 12/06/2015 16:25:24 12/04/19 16 12/04/2015 yfn (risk [...] EZIO ON SURGE RY. Not Available [facility] ([facility]) [address] [place], [address], 12/06/2015 16:25:24 12/04/19 16 12/04/2015 yfn (risk [...] DIAGN OSTIC ASSAY . Not Available [facility] ([facility]) [address] [place], [address], 12/06/2015 16:25:24 12/04/19 16 12/06/2015 yfn (risk of ovari an malig ezio algor ithm score ), serum (lizzie enopa usal) cancer antigen 125 (Ca125) 16.6 U/mL 0.0-35 .0 ABBOT T CMIA METHO DOLOG Y Not Available [facility] ([facility]) [address] [facility], [place], [address], 12/06/2015 16:25:24 12/04/19 16 12/06/2015 yfn (risk of ovari an malig ezio algor ithm score ), serum (lizzie enopa usal) he4 42 pmol/ L 0-150 FUJIR EBIO EIA METHO DOLOG Y CA125 VALUE S OBTAI NELLY WITH DIFFE RENT ASSAY METHO DS OR KITS CANNO T BE USED INTER LARSON EABLY . Not Available [facility] ([facility]) [address] [place], [address], 12/06/2015 16:25:24 12/04/19 16 12/06/2015 yfn (risk of ovari an malig ezio algor ithm score ), serum (lizzie enopa usal) premenopausa l yfn 0.51 see below Not Available [facility] ([facility]) [address] [place], [address], 12/06/2015 16:25:24 12/04/19 16 12/06/2015 yfn (risk of ovari an malig ezio algor ithm score ), serum (lizzie enopa usal) postmenopaus al yfn 1.05 see below Not Available [facility] ([facility]) [address] [place], [address], 12/06/2015 16:25:24 05/13/20 16 05/15/2016 bacte rial vagin osis + vagin itis panel , vagin al trich vag by MANJIT NEGATI VE negati ve Not Available [facility] ([facility]) [address] [place], [address], 05/17/2016 06:04:50 05/13/20 16 05/15/2016 bacte rial vagin osis + vagin itis panel , vagin al chlamydia trachomatis, MANJIT NEGATI VE negati ve Not Available [facility] ([facility]) [address] [facility], [place], [address], 05/17/2016 06:04:50 05/13/20 16 05/15/2016 bacte rial vagin osis + vagin itis panel , vagin al neisseria gonorrhoeae, MANJIT NEGATI VE negati ve Not Available [facility] ([facility]) [address] [place], [address], 05/17/2016 06:04:50 05/13/20 16 05/16/2016 bacte rial vagin osis + vagin itis panel , vagin al kathy albicans, MANJIT NEGATI VE negati ve Not Available [facility] ([facility]) [address] [place], [address], 05/17/2016 06:04:50 05/13/20 16 05/16/2016 bacte rial [...] IS NOT NECES DARÍO. Not Available [facility] ([facility]) [address] [facility], [place], [address], 05/17/2016 06:04:50 05/13/20 16 05/17/2016 bacte rial vagin osis + vagin itis panel , vagin al atopobium vaginae LOW - 0 score Not Available [facility] ([facility]) [address] [facility], [place], [address], 05/17/2016 06:04:50 05/13/20 16 05/17/2016 bacte rial vagin osis + vagin itis panel , vagin al bvab 2 LOW - 0 score Not Available [facility] ([facility]) [address] [facility], [place], [address], 05/17/2016 06:04:50 05/13/20 16 05/17/2016 bacte rial vagin osis + vagin itis panel , vagin al megasphaera 1 LOW - 0 score CALCU LATE TOTAL SCORE BY MARGARET Deins THE 3 INDIV IDUAL BACTE RIAL VAGIN [...] CLEAR ANCE OR APPRO GABRIELLA IS NOT NORMA CHANEL. Not Available [facility] ([facility]) [address] [facility], [place], [address], 05/17/2016 06:04:50 12/13/19 15 12/12/2014 ultra sound , pelvi c trans abdom inal No observ ation record ed. [facility] (Imaging) [address] [place], [address], 12/20/2014 19:01:30 09/04/20 15 09/02/2015 MAMMO , diagn ostic , digit al, bilat eral No observ ation record ed. [email or web address] [facility] [address], [place], [address], 05/13/2016 13:15:22 12/03/19 16 11/04/2015 CT, abdom en + pelvi s, w/ contr ast No observ ation record ed. [address] [facility] [address] [facility], [place], [address], 05/13/2016 16:18:12 12/06/19 16 12/06/2015 ultra sound , pelvi c trans abdom inal & trans vagin al No observ ation record ed. [address] ([employer]) [address] [place], [address], 05/13/2016 16:18:12 05/15/20 16 05/15/2016 US, trans vagin al No observ ation record ed. [email or web address] [place], [address], 06/02/2016 09:44:41 Result Notes None recorded. Problems Name Problem SNOMED Code Status Onset Date Resolution Date Notes Provider Name and Address Organization Details Recorded Time Endometriosi s of uterus 14078709 Active Cosme Gloria null, [place] - [facility] 6 13:25:11 Menopausal syndrome 258068330 Active Valerie Quiroz MD Attn: Accounting, [address] [facility], [place], [address], [place] - [facility] 6 18:44:51 Dermatophyto sis of the body Active Valerie Quiroz MD Attn: Accounting, [address] [place], [address], [place] - [facility] 6 18:44:51 Candidiasis 69474345 Active Valerie Quiroz MD Attn: Accounting, [address] [place], [address], [facility] - [facility] 6 18:44:51 Headache 43322283 Active Valerie Quiroz MD Attn: Accounting, [address] [place], [address], [facility] - [facility] 6 18:44:51 Irritable bowel syndrome 40540206 Active Valerie Quiroz MD Attn: Accounting, [address] [place], [address], [facility] - [facility] 6 18:44:51 Left sided abdominal pain 777407613 Active Valerie Quiroz MD Attn: Accounting, [address] [place], [address], [facility] - [facility] 6 18:44:51 Chronic pelvic pain of female 501269318 Active Natanael Valentino null, [place] - [facility] 6 10:54:30 Vaginitis 98297734 Active Valerie Quiroz MD Attn: Accounting, [address] [place], [address], [place] - [facility] 6 18:44:51 Uterine leiomyoma 83889257 Active Cosme Gloria [place] [facility] 6 13:25:11 Endometrium thickened 916828008 Active Cosme Juani null[place] [facility] 13:25:11 Problem Notes None recorded. Procedures Surgical History Date Name Laterality Status Provider Name and Address Organization Details Recorded Time 11/04/19 16 Date of Last Pap Smear completed Laure Pedraza [place] 05/13/2016 15:06:51 09/13/19 09 Cholecystectomy completed Brenda Van [place] - [facility] 10/30/2014 10:26:54 09/13/19 09 Dilation and Curettage completed Brenda Van MA [facility] 12/10/2014 12:17:22 12/21/19 08 Caesarean Section completed Laure Pedraza MA [facility] 12/20/2014 15:28:58 09/13/19 03 Orthopedic Surgery completed Brenda Van MA [facility] 12/10/2014 12:17:22 09/13/19 03 Breast Surgery completed Brenda Van MA [facility] 12/10/2014 12:23:51 Laparoscopy completed Brenda Van MA [facility] 12/10/2014 12:17:22 Imaging Results None recorded. Procedure Notes None recorded. Medical Equipment None Reported. Allergies Allergen ID Allergen Name Allergen Category Reaction Reaction Severity Criticality Documentation Date Start Date Code Code System Note Provider Name and Address Organization Details Recorded Time 16299 codeine medicatio n itching moderate Not available 10/30/2014 2670 RxNorm rash Brenda Van MA null, [facility] 5 12:14:39 Medications Name Sig Start Date [...] Details Last Updated DateTime 11/04/2015 177.8 cm 52692.289 26 g 28.4 kg/m2 130/92 mm[Hg] Rebecca Slater MA [facility] 11/04/2015 15:13:22 Date Recorded Body height Body mass index (BMI) Body weight Systolic And Diastolic Provider Name and Address Organization Details Last Updated DateTime 12/20/2014 177.8 cm 28.7 kg/m2 23748.474 g 124/88 mm[Hg] Laure Pedraza MA [facility] 12/20/2014 15:31:11 Date Recorded Body weight Body height Body mass index (BMI) Systolic And Diastolic Provider Name and Address Organization Details Last Updated DateTime 05/13/2016 99423.881 63 g 177.8 cm 28.6 kg/m2 128/86 mm[Hg] DANIELA Salas [facility] 05/13/2016 15:05:42 Date Recorded Body height Body mass index (BMI) Body weight Systolic And Diastolic Provider Name and Address Organization Details Last Updated DateTime 06/03/2016 177.8 cm 28.7 kg/m2 79641.474 g 118/82 mm[Hg] DANIELA Pak [facility] 06/03/2016 10:36:57 Date Recorded Body height Body weight Body mass index (BMI) Systolic And Diastolic Provider Name and Address Organization Details Last Updated DateTime 06/10/2016 177.8 cm 18626.881 63 g 28.6 kg/m2 130/92 mm[Hg] Rebecca SlaterDANIEAL [facility] 06/10/2016 12:34:41 Social History Question Answer Notes LastModified by [employer] Details LastModified Time Tobacco Smoking Status Never Smoker Brenda Van MA null, [facility] 10/30/2014 10:26:55 Do You Have An Advance Directive? No [email or web address] Information not available 10/30/2014 Is Blood Transfusion Acceptable In An Emergency? Yes [email or web address] Information not available 10/30/2014 What Is Your Level Of Caffeine Consumption? None [email or web address] Information not available 10/30/2014 How Much Tobacco Do You Chew? None Information not available 10/30/2014 What Type Of Diet Are You Following? REGULAR Information not available 10/30/2014 Education 4 Year College [email or web address] Information not available 10/30/2014 Live Alone Or With Others? With Others [email or web address] Information not available 10/30/2014 How Many Children Do You Have? 1 [email or web address] Information not available 10/30/2014 Performs Monthly Self-breast Exam? Yes [email or web address] Information no t available 10/30/2014 Do You Use Protection During Sex? Usually [email or web address] Information not available 10/30/2014 What Is Your Relationship Status? [email or web address] Information not available 10/30/2014 Seat Belts Used Routinely Yes [email or web address] Information not available 10/30/2014 Are You Sexually Active? Yes [email or web address] Information not available 10/30/2014 General Stress Level High [email or web address] Information not available 10/30/2014 Do You Use Sunscreen Routinely? Yes [email or web address] Information not available 10/30/2014 Sex: Unknown Functional Status Question Answer Note LastModified by Process [employer] Details LastModified Time What is your level of alcohol consumption? None [email or web address] Information not available 10/30/2014 Are you currently employed? 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 Occasional Information not available 10/30/2014 Mental Status None recorded. Family History Relationship Description Onset Age of this Age Resolved Age Notes LastModified by Organization Details LastModified Time Mother Malignant neoplasm of breast 75 Not available 2015 10:41:47 [...] Sclerosis N Colon Polyps N Heart Attack ([place]) N Diabetes N Cardiomyopathy N Blood Transfusions [...] Diagnosis SNOMED-CT Code Diagnosis ICD10 Code Diagnosis IMO Codes Diagnosis Note [id number] MD Liz Long (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) [address] [place] [address] [phone] 0 10/30/2014 09:49:37 10/30/2014 10:56:31 Gynecologic examination 80638422 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 381817337 [id number] MD Liz Long (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) [address] [place] [address] [phone] 0 12/10/2014 11:20:55 12/10/2014 13:01:08 Gynecologic examination 58172403 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 523837248 Streptococcus carrier 203256748 Endometrio sis of uterus 72545973 224331 MD Liz Long (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) [address] [place] [address]36[address]670 0 12/20/2014 14:54:18 12/23/2014 09:31:47 Streptococcus carrier 689317848 Menopausal syndrome 970472826 Dermatophy tosis of the body 539195409 Candidiasis 73134957 [id number] 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) [address] [place] [phone] 0 11/04/2015 14:31:13 11/04/2015 17:25:17 Gynecologic examination 96616128 Z01.419 Irritable bowel syndrome 98973057 K58.9 Menopausal syndrome 1237 10866 N95.9 Colitis 08032611 K52.9 [id number] MD [facility] (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) [address] [place] [address] 53195-223 0 05/13/2016 13:52:53 05/14/2016 10:32:25 Candidiasis 33422503 B37.9 Chronic pe lvic pain of female 072488368 R10.2 Vaginitis 77044351 N76.0 [id number] MD [facility] (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) [address] [place] [address] [phone] 0 06/03/2016 09:47:51 06/05/2016 11:46:20 Uterine leiomyoma 60026691 D25.9 Endometrium thickened 44 7671037 R93.8 [id number] [facility] (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) [address] [place] [address] [phone] 0 06/10/2016 11:13:23 06/11/2016 17:50:59 Endometrium thickened 740768889 R93.8 Chronic pe lvic pain of female 427785661 R10.2 Uterine leiomyoma 561403 05 D25.9 Health Concerns Section Related Observation LastModified by Organization Detai ls LastModified Time None Recorded Concern Status LastModified by Organization Details LastModified Time None Recorded Advance Directives Directive N: Payers Insurance Date Sequence Insurance Name Policy Number Policy Mohamud Covered Member ID Mohamud Member ID Guarantor Name 11/04/2015 1 [facility] Alana Olguin [id number] Alana Olguin 06/08/2016 1 [facility] (PP[facility] [id number] Catrachito Olguin Jr [id number] Alana Olguin Notes Date Note Type Note Provider Name and Address Organization Details Recorded Time 5 text/html VaginitisReported by PatientHPIFor associated symptoms, patient reportsrashandlesions.ROS as noted in the HPI Cosme blum, [facility] 12/23/2014 09:31:06 6 text/html Annual GYNReported by PatientGenitourinary symptomsFor urinary symptoms, patient reportsstress incontinencebut reportsno hematuria. For menstrual cycle, patient reportsnormal menses. For vulva, patient reportsno genital lesion. For vagina, patient reportsnormal vaginal discharge.Breast symptomsFor breast, patient reportsno breast pain,no breast lump, andno nipple discharge.Endocrine symptomsFor sexual complaints, patient reportsno sexual complaints,no pain during intercourse, andnormal libido. For menopausal symptoms, patient reportsno menopausal symptomsandnormal vaginal lubrication.Psychological symptomsFor psychological symptoms, patient reportsno depression,no anxiety, andno pmdd.Preventative measuresFor preventive measures, patient reportsencourage self breast examination,encourage regular exercise,encourage no tobacco use,encourage regular mammograms starting age 40, andfollowed with yearly pap smears. Cosme blum, [facility] 11/04/2015 17:15:28 6 text/html HERE FOR TEST RESULTS. She said she had an episode of post menopausal bleeding 2 years ago and endometrial biopsy was negative as per patient. Denies any bleeding since then Valerie Quiroz MD Attn: Accounting[address] [place], [address], [facility] 06/03/2016 18:49:56 6 text/html Presenting for consultation with Dr. Gloria, Re: endometrial thickening and pelvic pain. I am standing in for Dr. Gloria as he was called away for Emergency. 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
[2025-06-28 07:18] VITALS: BP 141/92; PULSE 90; RESP 14; TEMP 35.9; O2SAT 99
[2025-06-28] MEDS: LACTATED RINGERS 1,000 ML 150 ML IV CONT (07:34)
--- NOTE | 2025-06-28 07:54 | WPDANESEPPF ---
Anes - Initial Pre Proc Eval Procedure: Operation Date: 06/28/25 08:45 Proposed Procedures p Esophagogastroduodenoscopy EGD - Xiang Venegas MD Date/Time: 06/28/25 07:54 Surgeon: Xiang Venegas MD Pre Op Diagnosis: Right upper quadrant pain Patient Data Age: 59 Gender: F Height: 1.78 m Weight: 90.8 kg Last Vital Signs Temp 96.7 F L 06/28/25 07:18 Pulse 90 06/28/25 07:18 Resp 14 06/28/25 07:18 BP 141/92 H 06/28/25 07:18 Pulse Ox 99 06/28/25 07:18 O2 Del Method Room Air 06/28/25 07:18 Allergies Allergy/AdvReac Type Severity Reaction Status Date / Time codeine Allergy Intermediate ITCHING/IRENE Verified 06/28/25 07:17 H oxycodone Allergy Mild Rash Verified 06/28/25 07:17 Home Medications ?Medication ?Instructions ?Recorded ?Confirmed ?Type cholecalciferol (vitamin D3) 50 50 mcg PO DAILY 03/25/23 06/28/25 History mcg (2,000 unit) capsule (Vitamin D3) multivit with minerals-iron 18 1 tablet PO DAILY 03/25/23 06/28/25 History mg-folic ac 400 mcg-vit K 25 mcg tablet (Adults Multivitamin) Saccharomyces boulardii 250 mg 250 mg PO BID 09/09/23 06/28/25 History capsule (Daily Probiotic (S. boulardii)) bile gtbke-bdan-ngct-phenolpth 1 tablet PO DAILY 09/09/23 06/28/25 History tablet famotidine 20 mg tablet (Acid 10 mg PO DAILY 06/18/25 06/28/25 History Controller) Patient hx anesthesia problems: none Family hx anesthesia problems: none Results Review: All pre-operative results and documents have been reviewed as part of the pre-operative evaluation. [facility] Past Medical History Medical History Cavovarus deformity of foot, acquired Arthritis of foot, degenerative Endometriosis Interstitial cystitis (chronic) without hematuria Diverticulitis Surgical History Surgical History H/O knee surgery S/P breast lumpectomy H/O laparoscopy Delivery by section History of cholecystectomy Laparoscopic cholecystectomy 2010 at [facility] Breast cancer Status post lumpectomy and axillary dissection with postoperative radiation therapy and chemotherapy. Family History Family History Father Hypertension Mother Diabetes mellitus Disorder of thyroid Sibling No problems noted. Social History Social History (Updated 04/11/25 @ 09:40 by Macarena Morales CMA) Smoking status: Never smoker Alcohol intake: never Alcohol use details: only scant, Communion Substance use: never Substance use type: does not use Current Housing: Decline to Answer Concerned About Future Housing: Decline to Answer Difficulty Paying Gas/Electric Bills: Decline to Answer Difficulty Paying for Meds: Decline to Answer Currently Unemployed: Decline to Answer Education: Decline to Answer Difficulty w/ Childcare or Family Care: Decline to Answer Living arrangements: with family Additional living arrangements comments: with sp Occupation/Education: unemployed Gender identity (if verbalized by the patient): Female Spiritual care concerns: No Anes - Eval Final PreProcedure Day of Procedure 06/28/25 07:54 Patient weight: normal Heart: regular rate and rhythm Lungs: clear to auscultation Airway: Mallampati scale class II Neurological: alert and oriented Last oral intake: >/= 8 hours ASA classification: III Emergent: no Anesthetic plan: proceed Anesthesia type and monitoring: general GIVS and standard monitoring Results Review: All pre-operative results and documents have been reviewed as part of the pre-operative evaluation. Informed Consent: The patient's anesthetic plan and its attendant risks and benefits were discussed with the patient/family/POA. Questions were solicited and answers provided to the satisfaction of the patient/family/POA.
--- NOTE | 2025-06-28 08:01 | WPDHPUPDATE1 ---
History and Physical Update Update Date/Time: 06/28/25 08:01 History and Physical has been reviewed, including an updated exam of the patient. There are NO changes in the patient's condition. Risks, benefits, and alternatives have been discussed and questions answered. Patient agrees to proceed with procedure.
[2025-06-28 08:07] VITALS: BP 138/71; PULSE 89; RESP 20; O2SAT 97
--- NOTE | 2025-06-28 08:07 | S_PTH ---
PATIENT: Alana Olguin LOC: [facility]MM[facility]UEL Nolasco#:[id number] AGE/SX: 59/F ROOM: RE06/28/[address]: Xiang Venegas MD : 1965 BED: DIS: 06/28/2025 SPEC #: [id number] RECD: 06/28/25 10:12 STATUS: NADJA ESPINOZA #: [id number] RIVKA: 06/28/25 08:[address]: Xiang Venegas DEPT: [facility] Surgical RECD BY: Cassy Landeros ENTERED: 06/28/25 10:14 SP TYPE: Surgical OTHR DR: Loni Duong, PA-C Tissues: A - Small Bowel Bx B - Gastric Biopsy Procedures: Hematoxylin and Eosin Stain Gross and Microscopic Level 4
[2025-06-28 08:17] VITALS: BP 122/71; PULSE 85; RESP 20; O2SAT 97
[2025-06-28 08:27] VITALS: BP 126/78; PULSE 71; RESP 19; O2SAT 99
== END 2025-06-28 08:32 | disposition home or self-care (01) ==
PROVIDERS: PCP Physician Assistant; Referring Provider Nurse Practitioner; Visit Provider Internal Medicine Gastroenterology
PROC: 0DJ08ZZ Inspection of Upper Intestinal Tract, Via Natural or Artificial Opening Endoscopic (ICD-10-PCS; CPT 43239; principal; 2025-06-28 08:45)
DX: R07.89 Other chest pain (principal); N80.9 Endometriosis, unspecified; M19.079 Primary osteoarthritis, unspecified ankle and foot; Z98.890 Other specified postprocedural states; Z90.49 Acquired absence of other specified parts of digestive tract; Z85.3 Personal history of malignant neoplasm of breast; Z92.3 Personal history of irradiation; Z92.21 Personal history of antineoplastic chemotherapy; Z87.19 Personal history of other diseases of the digestive system
CPT/HCPCS: 43239; 88305; J7120

== ENCOUNTER 2025-07-20 07:55 | Outpatient (CLI) | payer OTHER, SELFPAY ==
--- NOTE | ~2025-07-20 | MR_ITS ---
EXAMINATION: MR thoracic spine wo con DATE: 07/20/2025 08:44 INDICATION: Spondylosis TECHNIQUE: Magnetic resonance imaging (MRI) of the thoracic spine was performed without intravenous contrast. Sagittal localizer T1-weighted FSE of the cervical spine was obtained. Thoracic spine sequences included sagittal T2-weighted FSE, sagittal T1-weighted FSE, sagittal T2-weighted FS FSE, and axial T2-weighted FSE. COMPARISON: None FINDINGS: Mild to moderately advanced diffuse degenerative changes involving disc spaces and posterior elements throughout the thoracic spine. Mild chronic anterior wedge deformity in the thoracolumbar region noted with no fracture or traumatic malalignment. No acute or aggressive bone or soft tissue process seen. The spinal cord within the thoracic spine appears normal in signal with no discrete medullary cord lesions or gross myelopathic changes. No spinal canal stenosis or discrete disc protrusion. IMPRESSION: 1. Mild to moderate degenerative changes with no spinal canal stenosis or discrete disc protrusion. The spinal cord appears normal in signal. Reviewed, dictated and finalized at location A. R PORTABLE BOILER IMPRESSION: 1. Mild to moderate degenerative changes with no spinal canal stenosis or discr ete disc protrusion. The spinal cord appears normal in signal.
--- NOTE | ~2025-07-20 | MR_ITS ---
EXAM/PROCEDURE: MR lumbar spine wo con HISTORY: Spondylosis of thoracolumbar COMPARISON: None available. TECHNIQUE: Standard technique for noncontrast enhanced multiplanar MRI of the lumbar spine performed. FINDINGS: Degenerative changes are present throughout the lumbar spine involving disc spaces and posterior elements. No acute or aggressive bony or soft tissue process seen. The conus tapers normally at L1. 2 to 3 mm slight retrolisthesis L2 on L3 noted. 10 x 8 mm benign appearing Tarlov or arachnoid cyst at the level of S2. Small bilateral kidney cysts also appear to be present, incompletely visualized. Level specific findings as follows: T12-L1: Mild degenerative change. L1-2: Mild degenerative change L2-3: Slight retrolisthesis L2 on L3 with moderately severe arthrosis at the facet joints and thickening of ligamentum flavum. Trace amounts of fluid also present in the facet joints as can be seen on image 13 series 6. No spinal canal stenosis or discrete disc protrusion. Mild to moderate bilateral neural foraminal narrowing. L3-4: No spinal canal stenosis or discrete disc protrusion. Zcqf-ru-jjzqnlow bilateral neural foraminal narrowing. Trace amounts of fluid in the facet joints at this level as well with mild hyperostosis. L4-5: No spinal canal stenosis or discrete disc protrusion. Mild to moderate bilateral neural foraminal narrowing. Mild narrowing of the lateral recesses but no tadeo stenosis. L5-S1: No spinal canal stenosis or discrete disc protrusion. Moderately severe bilateral neural foraminal narrowing, right worse than left. IMPRESSION: 1. Multilevel degenerative changes as detailed above with no discrete disc protrusion or spinal canal stenosis. 2. Other incidental findings as noted above. Reviewed, dictated and finalized at location A. NCE ASSOCIATE IMPRESSION: 1. Multilevel degenerative changes as detailed above with no discrete disc prot rusion or spinal canal stenosis. 2. Other incidental findings as noted above.
== END 2025-07-20 07:56 | disposition home or self-care (01) ==
LOC: MICIMG 07:55
PROVIDERS: PCP Physician Assistant; Visit Provider Physician Assistant
DX: M47.894 Other spondylosis, thoracic region (principal); M47.896 Other spondylosis, lumbar region; M47.897 Other spondylosis, lumbosacral region
CPT/HCPCS: 72146; 72148

== ENCOUNTER 2025-08-08 00:55 | Emergency (ER) | payer OTHER, SELFPAY ==
[2025-08-08] VITALS (7 sets, daily range): BP systolic 104–157; BP diastolic 70–87; PULSE 70–80; RESP 13–19; TEMP 36.6; O2SAT 96–100
--- NOTE | ~2025-08-08 | CT_ITS ---
CT abdomen pelvis w con Clinical History: LLQ pain, hx diverticulitis . Comparison: 04/20/2025 Technique: Axial images lung bases to symphysis pubis 100 mL Omnipaque 350 Coronal, sagittal reformats CT images acquired with automatic exposure control for dose reduction DLP: 784 mGy-cm Findings: Lung bases: Clear. Visualized heart and pericardium: Unremarkable. Liver: Enlarged. Steatosis. Mild intrahepatic biliary ductal dilatation after cholecystectomy. Small cyst segment 6 tip. Gallbladder: Removed. Spleen: Tiny hypodense focus, statistically benign. Pancreas: Unremarkable. Adrenal glands: Unremarkable. Kidneys: Right kidney- No hydronephrosis. No renal stones. Left kidney- No hydronephrosis. No renal stones. Several foci of cortical infarct. At least one focus of decreased enhancement. Distal esophagus/stomach: Small hiatal hernia. Small bowel loops: Normal caliber and wall thickness. Colon: Diverticula. Subtle sigmoid wall thickening likely chronic diverticular disease. Normal RLQ appendix. Nodes: No enlarged nodes. Peritoneum: No ascites. No free air. Urinary bladder: Unremarkable. Uterus: Tiny enhancing probable intramural fibroid. Adnexa: No masses. Bones: No acute bony abnormality. Soft tissues: Coarse calcifications bilateral breast. Aorta: No aneurysm or dissection. IVC: Unremarkable. Main portal vein/SMV/splenic vein: Patent. IMPRESSION: 1. No definite acute findings. 2. No convincing evidence of diverticulitis. 3. Subtle tiny focus left kidney pyelonephritis not excluded but probably merely chronic cortical infarct. Reviewed, dictated and finalized at location R. PEDIATRICIAN IMPRESSION: 1. No definite acute findings. 2. No convincing evidence of diverticulitis. 3. Subtle tiny focus left kidney pyelonephritis not excluded but probably mere ly chronic cortical infarct.
--- OUTSIDE RECORDS SUMMARY | 2025-08-08 00:57 | XMS_ITS | Clinical Summary ---
Author Organization [facility] Address [address] [place] [address] Care Team Providers Care Candle Molder Hand Name Role Phone Loni Marks Primary Care Pr ovider Source Comments [facility],non-owned Affiliates and Associated Physician Practices is amultiple site organization consisting of ambulatory clinics and hospital sitesin [place], [place], [place] and [place]. This disclosure is being madepursuant to the Care Everywhere program and may not contain all information available regarding this patient. 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 SELF PAY NO INSURANCE Member Subscriber Plan / Payer (Ef fective for All Dates) Name:Alana Pal Member ID:Not on file Relation to Subscriber:Not on file Name:ALANA PAL Subscriber ID:Not on file (Home) Address: [address] [place] [id number] Payer ID:Not on file Group ID:Not on file Type:Self Pay Address: [place], [place] Care Teams Candle Molder Hand Relationship Specialty Start Date End Date Loni Marks PA [address] [place] [address] PCP - General 11/29/18
--- OUTSIDE RECORDS SUMMARY | 2025-08-08 00:57 | XMS_ITS | Encounter Summary ---
Author Organization [facility] Address [address] [place] [address] Phone Care Team Providers Care Pre Planning Advisor Name Role Phone Loni Duong Primary Care Pr ovider Encounter Details Date Type Department Care Team (Late st Contact Info) Description 12/06/2017 Orders Only [facility] ProviderVic MD [address] [place] [id number] Social History Tobacco Use Types Packs/Day Years Used Date Smoking Tobacco: Never Comments Unknown Sex and Gender Information Value Date Recorded Sex Assigned at Not on file 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
--- OUTSIDE RECORDS SUMMARY | 2025-08-08 00:57 | XMS_ITS | Data Portability ---
Author Organization [place] - [facility], Main Office Address [address] [place] [address] Assessment Encounter Date Assessment Date Assessment LastModified by Organization Details LastModified Time 01/18/2023 01/18/2023 colonoscopy jun 2020. UTD. mammogram UTD dental and eye exams UTD [email or web address] Not available 01/18/2023 15:26:46 Plan of Treatment Reminders Order Date Submit Date Provider Last Modified By Organization Details Last Modified Time Details Appointments None recorded. Lab TSH + free T4, serum 2022 023 ANA LILIA [facility], [address], [place], [address], 3 10:46:09 lipid panel, serum 2022 023 [email or web address] [facility], [address], [place], [address], 3 11:35:00 CMP, serum or plasma 2022 023 [email or web address] [facility], [address], [place], [address], 3 11:35:17 CBC w/ auto diff 2022 023 [email or web address] [facility], [address], [place], [address], 3 11:35:17 vitamin D, 25-hydroxy, total, serum 2022 023 [email or web address] [facility], [address], [place], [address], 11:35:16 vitamin B12, serum 2022 023 [email or web address] [facility], [address], [place], [address], 11:34:53 HbA1c (hemoglobin A1c), blood 2022 023 [email or web address] [facility], [address], [place], [address], 11:35:16 Referral None recorded. Procedures None recorded. Surgeries None recorded. Imaging XR, hip, unilateral 2022 023 ANA LILIA Not available 16:09:59 Medication Orders nystatin 100,000 unit/mL oral suspension 2022 023 INDIANOLA [id number], [address] [place], [address], 10:15:43 Patient TargetsNo targets recorded. Patient InstructionsNo instructions recorded. Reason for Referral None Reported. Results Created Date Observation Date Name Description Value Unit Range Abnormal Flag Note LastModifiedBy Organization Detail LastModifiedTime 03/30/2002/05/2023 CT, abdom en + pelvi s, w/ contr ast No observ ation record ed. [address], [place], [address], 03/31/2023 15:10:53 04/06/20 23 04/05/2023 colon oscop y scree ac (PROC ) No observ ation record ed. [email or web address] Not Available 2022 09:57:37 05/18/20 23 01/15/2023 CT, abdom en + pelvi s, w/ contr ast No observ ation record ed. BARCODE Not Available 2022 16:07:04 06/16/20 23 06/16/2023 XR, hip, unila teral No observ ation record ed. [facility] [address], [place], [address], 06/18/2023 15:26:48 10/05/19 24 10/05/2023 MAMMO , diagn ostic , digit al, bilat eral No observ ation record ed. [email or web address] [address], [address], 10/06/2023 14:30:01 Result Notes None recorded. Problems Name Problem SNOMED Code Status Onset Date Resolution Date Notes Provider Name and Address Organization Details Recorded Time Suprapubic pain 704947855 Active Not Available [facility] 3 17:29:42 Spondyloli sthesis 001430379 Active Not Available [facility] 3 17:29:42 Left lower quadrant pain 982926068 Active Not Available [facility] 3 17:29:42 Right upper quadrant pain 247152676 Active Not Available [facility] 3 17:29:43 Hypoglycem ia 980079282 Active Not Available [facility] 3 17:29:43 Lower urinary tract symptoms 111421851 Active Not Available [facility] 3 17:29:43 Diverticul ar disease 671454124 Active Not Available [facility] 3 17:29:43 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 Active Not Available [facility] 3 17:29:43 Pharyngiti s 896132674 Active Not Available [facility] 3 17:29:43 Dysuria 94996353 Active Not Available [facility] 3 17:29:43 Fatigue 80071370 Active Not Available [facility] 3 17:29:43 Vitamin D deficiency 34452447 Active 2022 T[facility]RA Sol [address], [address], [place], [address] , [place] [facility] 3 15:24:21 Diverticul ar disease of colon 869777262 Active 2022 TYRA Sol [address], [place], [address] , [employer] [facility] [employer] [facility] 3 15:25:04 Chronic interstiti al cystitis 360217923 Active 2022 TYAR Sol [address], [address], [place], [address] , DDN [facility] [employer] [facility] 3 15:25:37 Acute urinary tract infection 087218622 Active 2022 T[facility]RA Sol [address], [place], [address] , [employer] [facility] 3 10:09:26 Urinary tract infectious disease 53942907 Active 2022 T[facility] [address], [address], [place], [address] , DDN [facility] [employer] [facility] 3 10:14:27 Allergic rhinitis 40308244 Active 2022 T[facility] Sol [address], [address], [place], [address] , [employer] [facility] [employer] [facility] 3 10:14:33 Pain of right hip joint 6794280745899 02 Active 2022 T[facility] [address], [address], [place], [address] , DDN [facility] [employer] [facility] 3 10:14:38 Coating of mucous membrane of tongue 554337053 Active 2022 T[facility] [address], [place], [address] , DDN [facility] [employer] [facility] 3 10:15:21 Lump of axillary tail of right breast 5922052496952 06 Active 2022 TYRA Sol [address], [place], [address] , DDN [facility] [employer] [facility] 3 09:45:11 Problem Notes None recorded. Procedures Surgical History Date Name Laterality Status Provider Name and Address Organization Details Recorded Time 09/13/19 10 cholecystectomy completed LEONIE Brown Nola [facility] 01/18/2023 14:07:31 09/13/19 08 section completed LEONIE Brown Nola [facility] 01/18/2023 14:09:03 09/13/19 00 Breast Surgery completed Joslyn Akins RN [facility] 01/18/2023 14:08:43 Imaging Results None recorded. Procedure Notes None recorded. Medical Equipment None Reported. Allergies Allergen ID Allergen Name Allergen Category Reaction Reaction Severity Criticality Documentation Date Start Date Code Code System Note Provider Name and Address Organization Details Recorded Time 53188 codeine medicatio n rash Not available Not available 11/11/2022 2670 RxNorm Not Available [facility] 3 17:30:55 Medications Name Sig Start Date Stop [...] azelastine 137 mcg (0.1 %) nasal spray Nipomo 2 sprays twice a day by intranasa [...] (BMI) Body height Heart rate Oxygen saturation Body temperature Systolic And Diastolic Provider Name and Address Organization Details Last Updated DateTime 3 05066.9 6 g 27.1 kg/m2 177.8 cm 89 /min 99 % 98.4 [degF] 124/86 mm[Hg] Joslyn Akins RN [facility] [employer] [facility] 3 15:02:20 Date Recorded Body height Body mass index (BMI) Body weight Body temperature Heart rate Oxygen saturation Systolic And Diastolic Provider Name and Address Organization Details Last Updated DateTime 3 177.8 cm 25.8 kg/m2 41314.6 3 g 97.5 [degF] 80 /min 99 % 110/78 mm[Hg] Joslyn Akins RN [facility] [employer] [facility] 3 09:51:43 Social History Question Answer Notes LastModified by Organizat ion Details LastModified Time Tobacco Smoking Status Never Smoker Joslyn Akins RN [facility], [facility] [employer] [facility] 01/18/2023 14:04:46 What Is Your Level Of Caffeine Consumption? None Information not available 01/18/2023 In The 14 Days Before Symptom Onset, Have You Had Close Contact With A Laboratory-confirm ed COVID-19 While That Case Was Ill? No [email or web address] Information n ot available 01/18/2023 In The 14 Days Before Symptom Onset, Have You Had Close Contact With A Person Who Is Under Investigation For COVID-19 While That Person Was Ill? No [email or web address] Information not available 01/18/2023 What Type Of Diet Are You Following? REGULAR [email or web address] Information n ot available 01/18/2023 What Is The Highest Grade Or Level Of School You Have Completed Or The Highest Degree You Have Received? EU20493-8 [email or web address] Information not available 01/18/2023 Have There Been Any Changes To Your Family Or Social Situation? No [email or web address] Information no t available 01/18/2023 Do You Use Insect Repellent Routinely? No [email or web address] Information not available 06/15/2023 What Is Your Relationship Status? [email or web address] Information not available 01/18/2023 Do You Use Your Seat Belt Or Car Seat Routinely? Yes [email or web address] Information not available 01/18/2023 Are You Passively Exposed To Smoke? No [email or web address] Information no t available 01/18/2023 Are There Any Smokers In Your House? No [email or web address] Information not available 01/18/2023 Do You Use Sunscreen Routinely? Yes [email or web address] Information not available 06/15/2023 Have You Recently Traveled Abroad? No [email or web address] Information not available 01/18/2023 Do You Have Any Dietary Restrictions? No [email or web address] Information not available 01/18/2023 Sex: Female Functional Status Question Answer Note LastModified by Organizat ion Details LastModified Time Do you use any illicit or recreational drugs? No [email or web address] Information not available 01/18/2023 Do you or have you ever used any other forms of tobacco or nicotine? No [email or web address] Information not available 01/18/2023 What is your level of alcohol consumption? None Information not available 01/18/2023 Are you currently employed? 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 None [email or web address] Information not available 01/18/2023 Mental Status Question Answer Note LastModified by Organization D etails LastModified Time Do you feel stressed (tense, restless, nervous, or anxious, or unable to sleep at night)? [id number] [email or web address] Information not available 01/18/2023 Family History Relationship Description Onset Age of this Age Resolved Age Notes LastModified by Organization Details LastModified Time Father Diabetes mellitus [email or web address] Not available 04/2023 14:03:23 Brother Malignant neoplasm of brain 58 [email or web address] Not available 05/ 04/2023 14:03:51 Medical History No medical history recorded. Gynecological HistoryNo gynecological history recorded. Obstetrics History GPAL:G 0 P 0 0 0 0 Past Encounters Encounter ID Performer Location Encounter Start Date Encounter Closed Date Diagnosis/Indication Diagnosis SNOMED-CT Code Diagnosis ICD10 Code Diagnosis IMO Codes Diagnosis Note [id number] TYRA Sol [facility] [place] [address] [place] [address] 01/18/2023 14:41:01 01/18/2023 15:29:51 Adult health examination 746777569 Z00.00 well exam completed; all annual labs ordered. Cholesterol screening 27 3338876 Z13.220 Diabetes m ellitus screening 654391968 Z13.1 Vitamin D deficiency 347 35485 E55.9 Endocrine/ metabolic screening 214335153 Z13.228 Thyroid di sorder screening 126788631 Z13.29 Long-term drug therapy 885474040 Z79.899 Diverticul ar disease of colon 479889210 K57.30 post recent flare with abscess. seeing general surgeon in 2 weeks for f/u. Chronic in terstitial cystitis 924090554 N30.10 managed by urology [id number] TYRA Sol [facility] [address] [place] [address] 06/16/2023 09:42:50 06/16/2023 10:19:32 Urinary tract infectious disease 01355923 N39.0 continue augmentin abx therapy pt was already given end of May. Allergic rhinitis 283521 04 J30.9 take OTC antihistam ine. nasal steroid spray if able. Pain of ri ght hip joint 4781462735 87482 M25.551 check xray right hip. r/o OA Coating of mucous membrane of tongue 425214388 K14.3 trial of nystatin swish and swallow. Health Concerns Section Related Observation LastModified by Organization Detai ls LastModified Time None Recorded Concern Status LastModified by Organization Details LastModified Time None Recorded Advance Directives Directive None Recorded Payers Insurance Date Sequence Insurance Name Policy Number Policy Mohamud Covered Member ID Mohamud Member ID Guarantor Name 01/15/2023 1 [place] [id number] Catrachito Olguin [id number] Alana Olguin 07/13/2023 1 [facility] [id number] Catrachito Olguin [id number] Alana Olguin Notes Date Note Type Note Provider Name and Address Organization Details Recorded Time 3 text/html Bowel Complaints/Fecal IncontinenceReported by Patientpreviously saw GI, has not seen since 2020 last seen 2020[facility] for c/o bowel problems (records requested)- diverticulitis was dx. here for wellness today - no current complaints for you TYRA Sol [address], [place], [address], [employer] 02/10/2023 15:34:16 3 text/html Urinary FrequencyReported by PatientHPIFor associated symptoms, patient reportspain during urination,incomplete emptying of bladder,hesitancy, andfeelings of urgencybut reportsno abdominal painandno chills. For severity, patient reportsmild. For context, patient reportssuccess with short term antibiotics. For alleviating factors, patient reportsantibiotics. EaracheReported by PatientHPIFor location, patient reportsbilateral. For associated symptoms, patient reportsnose/sinus problemsbut reportsno discharge from the ears,no hearing loss,no nose/sinus problems,no popping noise in the ears, andno ringing in the ears. For quality, patient reportsachinganddull. For severity, patient reportssame. For timing, patient reportsbetterandgradual. For context, patient reportsno sick contacts,no recent swimming/water in ear,no exposure to second hand smoke,no head trauma,not grinding teeth, andno recent air travel. For modifying factors, patient reportsdoes not hurt to lie on, or pull on earanddoes not hurt to chew. currently taking augmentin for uti [facility] [address], [place], [address], [employer] 07/13/2023 00:20:22 OBGyn Episode No OBEpisode recorded.
--- OUTSIDE RECORDS SUMMARY | 2025-08-08 00:57 | XMS_ITS | Data Portability ---
Author Organization [facility] YAELAshley Address [address] [place] [address] Assessment Encounter Date Assessment Date Assessment LastModified [...] recorded. Lab biopsy, endometri al 2015 016 [email or web address] [facility], [address] [place] [address], [address], [place], [address], 13:08:18 pathology study - emb 2015 016 [email or web address] [facility], [address], [address], [place], [address], 6 12:06:24 urinalysi s, dipstick 2015 016 In-Office Order, Internal Use Only DO Not Attach Compendium DO Not Attach Compendium, Do Not Delete/merge, [facility] 6 10:54:31 test, urine 2015 016 [email or web address] In-Office Order, Internal Use Only DO Not Attach Compendium DO Not Attach Compendium, Do Not Delete/merge, [facility] 6 18:49:48 urinalysi s, dipstick 2015 016 [email or web address] In-Office Order, Internal Use Only DO Not Attach Compendium DO Not Attach Compendium, Do Not Delete/merge, [facility] 18:49:48 urinalysi s, dipstick 2015 016 In-Office Order, Internal Use Only DO Not Attach Compendium DO Not Attach Compendium, Do Not Delete/merge, [facility] 11:58:48 bacterial vaginosis + vaginitis panel, vaginal 2015 016 ANA LILIA [facility], [address], [address], [place], [address], 6 06:04:50 TSH + free T4, serum 2015 016 ANA LILIA [facility], [address], [address], [place], [address], 6 07:22:45 progester one, serum 2015 016 ANA LILIA [facility], [address], [address], [place], [address], 6 07:22:49 HbA1c (hemoglob in A1c), blood 2015 016 ANA LILIA [facility], [facility], [address], [place], [address], 6 07:22:47 CMP, serum or plasma 2015 016 ANA LILIA [facility], [address] [place], [place] [address]d[address], [address], [place], [address], 6 07:22:46 FSH (follicle -stimulat ing hormone), serum 2015 016 ANA LILIA [facility], [facility] [address], [address], [place], [address], 6 07:22:48 CBC w/ auto diff 2015 016 ANA LILIA [facility], [address] [place], [place] [address], [address], [place], [address], 6 07:22:45 estradiol , serum 2015 016 ANA LILIA [facility], [address] [place], [place] [address], [address], [place], [address], 6 07:22:48 urinalysi s, dipstick 2015 016 [email or web address] In-Office Order, Internal Use Only DO Not Attach Compendium DO Not Attach Compendium, Do Not Delete/merge, [id number] 6 16:20:53 culture, urine 2015 016 ANA LILIA [facility], [facility] [address], [address], [place], [address], 6 06:12:59 pap, IG + HPV, cervical 2015 016 ANA LILIA OBRIEN, [address], [address], [place], [address], 6 16:41:55 bacterial vaginosis + vaginitis panel, vaginal 2015 016 ANA LILIA COOPERNARAYAN, [address], [address], [place], [address], 6 06:11:53 HSV (1+2) DNA, qual, PCR, unspecifi ed specimen 2015 016 ANA LILIA COOPERNARAYAN, [address], [address], [place], [address], 6 06:11:54 unlisted lab - kathy 6 species profile, MANJIT 2015 016 ANA LILIA WESLEYJULIETA, [address], [address], [place], [address], 6 06:11:54 test, urine 2014 Jaqui [email or web address] In-Office Order, Internal Use Only DO Not Attach Compendium DO Not Attach Compendium, Do Not Delete/merge, [id number] 5 09:30:07 CBC w/ auto diff 2014 015 ANA LILIA WESLEYJULIETA, [address], [address], [place], [address], 5 16:34:31 progester one, serum 2014 015 ANA LILIA WESLEYJULIETA, [address], [address], [place], [address], 5 16:34:36 HbA1c (hemoglob in A1c), blood 2014 015 ANA LILIA WESLEYJULIETA, [address], [address], [place], [address], 5 16:34:33 CMP, serum or plasma 2014 015 ANA LILIA [facility], [address], [address], [place], [address], 5 16:34:32 TSH, serum or plasma 2014 015 [email or web address] [facility], [address], [address], [place], [address], 5 16:20:44 FSH (follicle -stimulat ing hormone), serum 2014 015 ANA LILIA [facility], [address], [address], [place], [address], 5 16:34:34 estradiol , serum 2014 015 ANA LILIA [facility], [address], [address], [place], [address], 5 16:34:35 urinalysi s, dipstick 2014 015 [email or web address] In-Office Order, Internal Use Only DO Not Attach Compendium DO Not Attach Compendium, Do Not Delete/merge, [id number] 5 09:30:07 bacterial vaginosis + vaginitis panel, vaginal 2014 015 ANA LILIA [facility], [address], [address], [place], [address], 5 11:41:55 HSV (1+2) DNA, qual, PCR, unspecifi ed specimen 2014 015 ANA LILIA [facility], [address], [address], [place], [address], 5 11:41:56 culture, vaginal/r ectal, streptoco ccus group B 2014 015 TYLER [facility], [address] [facility], [address], [place], [address], 5 11:41:56 Referral gastroent erologist referral - colitis and diverticu litis. needs colonosco py and f/u with specialis t 2015 016 [facility], [address] [place], [address], 6 17:31:59 Procedures None recorded. Surgeries None recorded. Imaging US, transvagi nal 2015 016 [facility], [address] [place], [address], 6 13:50:22 Medication Orders Diflucan 150 mg tablet 2015 016 [id number], [address] [place], [address], 6 18:32:13 [place] 5 mg-325 mg tablet 2015 016 [id number], [address] [place], [address], 6 18:32:13 ibuprofen 800 mg tablet 2015 016 [facility], [address] [place], [address], 6 18:32:13 nystatin 100,000 unit/gram topical cream 2014 015 [email or web address] [facility], [address] [place], [address], 6 15:38:41 fluconazo le 150 mg tablet 2014 015 duncan [id number], [address] [place], [address], 6 15:38:41 Patient TargetsNo targets recorded. Patient Instructions Encounter Date Encounter Id Patient Instructions Last Modified By Organization Details Last Modified Time 12/20/[id number] candidiasis: care instructions Not available 12/24/2014 10:07:34 11/04/2015 [id number] irritable bowel syndrome: care instructions [email or web address] Not available 11/04/2015 16:20:54 05/13/2016 [id number] chronic pelvic pain: care instructions Not available 05/13/2016 18:32:13 06/03/2016 [id number] uterine fibroids: care instructions [email or web address] Not available 06/04/2016 09:11:19 06/10/2016 [id number] chronic pelvic pain: care instructions [email or web address] Not available 06/11/2016 12:06:05 uterine fibroids: care instructions Not available 06/11/2016 12:06:05 Reason for Referral colitis and diverticulitis. needs colonoscopy and f/u with specialist Referring Physician: Cosme Gloria, [employer] SERVICER, Encounter Date: 11/04/2015 Results Created Date Observation Date Name Description Value Unit Range Abnormal Flag Note LastModifiedBy Organization Detail LastModifiedTime 06/10/2006/10/2016 urina lysis , dipst ick Leukocytes Trace Not Available In-Offi ce Order Internal Use Only DO Not Attach Compendium DO Not Attach Compendium, Do Not Delete/merge, [id number] 06/10/2016 12:30:19 06/10/2006/10/2016 urina lysis , dipst ick Nitrite negati ve Not Available In-Office Order Internal Use Only DO Not Attach Compendium DO Not Attach Compendium, Do Not Delete/merge, [id number] 06/10/2016 12:30:19 06/10/20 16 06/10/2016 urina lysis , dipst ick Urobilinogen .2 Not Available In-Of fice Order Internal Use Only DO Not Attach Compendium DO Not Attach Compendium, Do Not Delete/merge, [facility] 06/10/2016 12:30:06/10/2006/10/2016 urina lysis , dipst ick Protein Negati ve Not Available In-Office Order Internal Use Only DO Not Attach Compendium DO Not Attach Compendium, Do Not Delete/merge, [facility] 06/10/2016 12:30:06/10/2006/10/2016 urina lysis , dipst ick pH 6.5 Not Available In-Office Order Internal Use Only DO Not Attach Compendium DO Not Attach Compendium, Do Not Delete/merge, [facility] 06/10/2016 12:30:06/10/2006/10/2016 urina lysis , dipst ick Blood Negati ve Not Available In-Office Order Internal Use Only DO Not Attach Compendium DO Not Attach Compendium, Do Not Delete/merge, [facility] 06/10/2016 12:30:06/10/2006/10/2016 urina lysis , dipst ick Specific Pompeii 1.015 Not Available In-Off ice Order Internal Use Only DO Not Attach Compendium DO Not Attach Compendium, Do Not Delete/merge, [facility] 06/10/2016 12:30:06/10/2006/10/2016 urina lysis , dipst ick Ketone Negati ve Not Available In-Office Order Internal Use Only DO Not Attach Compendium DO Not Attach Compendium, Do Not Delete/merge, [facility] 06/10/2016 12:30:06/10/2006/10/2016 urina lysis , dipst ick Bilirubin Negati ve Not Available In-Office Order Internal Use Only DO Not Attach Compendium DO Not Attach Compendium, Do Not Delete/merge, [facility] 06/10/2016 12:30:06/10/2006/10/2016 urina lysis , dipst ick Glucose Negati ve Not Available In-Office Order Internal Use Only DO Not Attach Compendium DO Not Attach Compendium, Do Not Delete/merge, [facility] 06/10/2016 12:30:06/03/2006/03/2016 urina lysis , dipst ick Leukocytes Trace Not Available In-Offi ce Order Internal Use Only DO Not Attach Compendium DO Not Attach Compendium, Do Not Delete/merge, [facility] 06/03/2016 10:34:15 06/03/20 16 06/03/2016 urina lysis , dipst ick Nitrite negati ve Not Available In-Office Order Internal Use Only DO Not Attach Compendium DO Not Attach Compendium, Do Not Delete/merge, [facility] 06/03/2016 10:34:15 06/03/20 16 06/03/2016 urina lysis , dipst ick Urobilinogen .2 Not Available In-Of fice Order Internal Use Only DO Not Attach Compendium DO Not Attach Compendium, Do Not Delete/merge, [facility] 06/03/2016 10:34:06/03/20 16 06/03/2016 urina lysis , dipst ick Protein Negati ve Not Available In-Office Order Internal Use Only DO Not Attach Compendium DO Not Attach Compendium, Do Not Delete/merge, [facility] 06/03/2016 10:34:15 06/03/20 16 06/03/2016 urina lysis , dipst ick pH 5.5 Not Available In-Office Order Internal Use Only DO Not Attach Compendium DO Not Attach Compendium, Do Not Delete/merge, [facility] 06/03/2016 10:34:15 06/03/20 16 06/03/2016 urina lysis , dipst ick Blood Negati ve Not Available In-Office Order Internal Use Only DO Not Attach Compendium DO Not Attach Compendium, Do Not Delete/merge, [facility] 06/03/2016 10:34:15 06/03/20 16 06/03/2016 urina lysis , dipst ick Specific [place] 1.020 Not Available In-Off ice Order Internal Use Only DO Not Attach Compendium DO Not Attach Compendium, Do Not Delete/merge, [facility] 06/03/2016 10:34:15 06/03/20 16 06/03/2016 urina lysis , dipst ick Ketone Negati ve Not Available In-Office Order Internal Use Only DO Not Attach Compendium DO Not Attach Compendium, Do Not Delete/merge, [facility] 06/03/2016 10:34:15 06/03/20 16 06/03/2016 urina lysis , dipst ick Bilirubin Negati ve Not Available In-Office Order Internal Use Only DO Not Attach Compendium DO Not Attach Compendium, Do Not Delete/merge, [facility] 06/03/2016 10:34:15 06/03/20 16 06/03/2016 urina lysis , dipst ick Glucose Negati ve Not Available In-Office Order Internal Use Only DO Not Attach Compendium DO Not Attach Compendium, Do Not Delete/merge, [facility] 06/03/2016 10:34:15 06/03/20 16 06/03/2016 pregn tiny test, urine HCG negati ve Not Available In-Office Order Internal Use Only DO Not Attach Compendium DO Not Attach Compendium, Do Not Delete/merge, [facility] 06/03/2016 10:34:15 05/13/20 16 05/13/2016 urina lysis , dipst ick Leukocytes Negati ve Not Available In-Office Order Internal Use Only DO Not Attach Compendium DO Not Attach Compendium, Do Not Delete/merge, [facility] 05/13/2016 14:56:44 05/13/20 16 05/13/2016 urina lysis , dipst ick Nitrite negati ve Not Available In-Office Order Internal Use Only DO Not Attach Compendium DO Not Attach Compendium, Do Not Delete/merge, [facility] 05/13/2016 14:56:44 05/13/20 16 05/13/2016 urina lysis , dipst ick Urobilinogen .2 Not Available In-Of fice Order Internal Use Only DO Not Attach Compendium DO Not Attach Compendium, Do Not Delete/merge, [facility] 05/13/2016 14:56:44 05/13/20 16 05/13/2016 urina lysis , dipst ick Protein Negati ve Not Available In-Office Order Internal Use Only DO Not Attach Compendium DO Not Attach Compendium, Do Not Delete/merge, [facility] 05/13/2016 14:56:44 05/13/20 16 05/13/2016 urina lysis , dipst ick pH 5.5 Not Available In-Office Order Internal Use Only DO Not Attach Compendium DO Not Attach Compendium, Do Not Delete/merge, [facility] 05/13/2016 14:56:44 05/13/20 16 05/13/2016 urina lysis , dipst ick Blood Negati ve Not Available In-Office Order Internal Use Only DO Not Attach Compendium DO Not Attach Compendium, Do Not Delete/merge, [facility] 05/13/2016 14:56:44 05/13/20 16 05/13/2016 urina lysis , dipst ick Specific [place] 1.030 Not Available In-Off ice Order Internal Use Only DO Not Attach Compendium DO Not Attach Compendium, Do Not Delete/merge, [facility] 05/13/2016 14:56:44 05/13/20 16 05/13/2016 urina lysis , dipst ick Ketone Negati ve Not Available In-Office Order Internal Use Only DO Not Attach Compendium DO Not Attach Compendium, Do Not Delete/merge, [facility] 05/13/2016 14:56:44 05/13/20 16 05/13/2016 urina lysis , dipst ick Bilirubin Negati ve Not Available In-Office Order Internal Use Only DO Not Attach Compendium DO Not Attach Compendium, Do Not Delete/merge, [facility] 05/13/2016 14:56:44 05/13/20 16 05/13/2016 urina lysis , dipst ick Glucose Negati ve Not Available In-Office Order Internal Use Only DO Not Attach Compendium DO Not Attach Compendium, Do Not Delete/merge, [facility] 05/13/2016 14:56:44 11/04/19 16 11/04/2015 urina lysis , dipst ick Leukocytes Trace Not Available In-Offi ce Order Internal Use Only DO Not Attach Compendium DO Not Attach Compendium, Do Not Delete/merge, [facility] 11/04/2015 15:08:08 11/04/19 16 11/04/2015 urina lysis , dipst ick Nitrite negati ve Not Available In-Office Order Internal Use Only DO Not Attach Compendium DO Not Attach Compendium, Do Not Delete/merge, [facility] 11/04/2015 15:08:08 11/04/19 16 11/04/2015 urina lysis , dipst ick Urobilinogen .2 Not Available In-Of fice Order Internal Use Only DO Not Attach Compendium DO Not Attach Compendium, Do Not Delete/merge, [facility] 11/04/2015 15:08:08 11/04/19 16 11/04/2015 urina lysis , dipst ick Protein Negati ve Not Available In-Office Order Internal Use Only DO Not Attach Compendium DO Not Attach Compendium, Do Not Delete/merge, [facility] 11/04/2015 15:08:08 11/04/19 16 11/04/2015 urina lysis , dipst ick pH 5.5 Not Available In-Office Order Internal Use Only DO Not Attach Compendium DO Not Attach Compendium, Do Not Delete/merge, [facility] 11/04/2015 15:08:08 11/04/19 16 11/04/2015 urina lysis , dipst ick Blood Non-He molyze d: Trace Not Available In-Office Order Internal Use Only DO Not Attach Compendium DO Not Attach Compendium, Do Not Delete/merge, [facility] 11/04/2015 15:08:08 11/04/19 16 11/04/2015 urina lysis , dipst ick Specific [place]ii 1.030 Not Available In-Off ice Order Internal Use Only DO Not Attach Compendium DO Not Attach Compendium, Do Not Delete/merge, [facility] 11/04/2015 15:08:08 11/04/19 16 11/04/2015 urina lysis , dipst ick Ketone Trace Not Available In-Office Order Internal Use Only DO Not Attach Compendium DO Not Attach Compendium, Do Not Delete/merge, [facility] 11/04/2015 15:08:08 11/04/19 16 11/04/2015 urina lysis , dipst ick Bilirubin Negati ve Not Available In-Office Order Internal Use Only DO Not Attach Compendium DO Not Attach Compendium, Do Not Delete/merge, [facility] 11/04/2015 15:08:08 11/04/19 16 11/04/2015 urina lysis , dipst ick Glucose Negati ve Not Available In-Office Order Internal Use Only DO Not Attach Compendium DO Not Attach Compendium, Do Not Delete/merge, [facility] 11/04/2015 15:08:08 12/21/19 15 12/20/2014 pregn tiny [...] 12/21/1912/20/2014 urina lysis , dipst ick Specific Pompeii 1.020 Not Available In-Off ice Order Internal Use Only DO Not Attach Compendium DO Not Attach Compendium, Do Not Delete/merge, [id number] 12/20/2014 15:38:49 12/21/1912/20/2014 urina lysis , dipst ick Ketone Negati ve Not Available In-Office Order Internal Use Only DO Not Attach Compendium DO Not Attach Compendium, Do Not Delete/merge, [facility] 12/20/2014 15:38:49 12/21/19 15 12/20/2014 urina lysis , dipst ick Bilirubin Negati ve Not Available In-Office Order Internal Use Only DO Not Attach Compendium DO Not Attach Compendium, Do Not Delete/merge, [facility] 12/20/2014 15:38:49 12/21/1912/20/2014 urina lysis , dipst ick Glucose Negati ve Not Available In-Office Order Internal Use Only DO Not Attach Compendium DO Not Attach Compendium, Do Not Delete/merge, [id number] 12/20/2014 15:38:49 12/21/1912/20/2014 urina lysis , dipst ick Appearance Clear Not Available In-Offi ce Order Internal Use Only DO Not Attach Compendium DO Not Attach Compendium, Do Not Delete/merge, [id number] 12/20/2014 15:38:49 12/21/1912/20/2014 urina lysis , dipst [...] DO Not Attach Compendium, Do Not Delete/merge, [id number] 12/10/2014 11:59:06 12/11/19 15 12/10/2014 urina lysis , dipst ick Protein Negati ve Not Available In-Office Order Internal Use Only DO Not Attach Compendium DO Not Attach Compendium, Do Not Delete/merge, [id number] 12/10/2014 11:59:06 12/11/19 15 12/10/2014 urina lysis , dipst ick pH 7.0 Not Available In-Office Order Internal Use Only DO Not Attach Compendium DO Not Attach Compendium, Do Not Delete/merge, [id number] 12/10/2014 11:59:06 12/11/19 15 12/10/2014 urina lysis , dipst ick Blood Non-He molyze d: Trace Not Available In-Office Order Internal Use Only DO Not Attach Compendium DO Not Attach Compendium, Do Not Delete/merge, [id number] 12/10/2014 11:59:06 12/11/19 15 12/10/2014 urina lysis , dipst ick Specific Pompeii 1.015 Not Available In-Off ice Order Internal Use Only DO Not Attach Compendium DO Not Attach Compendium, Do Not Delete/merge, 12/10/2014 11:59:06 12/11/19 15 12/10/2014 urina lysis , dipst ick Ketone Negati ve Not Available In-Office Order Internal Use Only DO Not Attach Compendium DO Not Attach Compendium, Do Not Delete/merge, [id number] 12/10/2014 11:59:06 12/11/19 15 12/10/2014 urina lysis , dipst ick Bilirubin Negati ve Not Available In-Office Order Internal Use Only DO Not Attach Compendium DO Not Attach Compendium, Do Not Delete/merge, 12/10/2014 11:59:06 12/11/19 15 12/10/2014 urina lysis , dipst ick Glucose Negati ve Not Available In-Office Order Internal Use Only DO Not Attach Compendium DO Not Attach Compendium, Do Not Delete/merge, [id number] 12/10/2014 11:59:06 12/21/19 15 12/25/2014 bacte rial vagin osis + vagin itis panel , vagin al atopobium vaginae LOW - 0 score Not Available [facility] ([facility]) [address] [place], [address], 12/26/2014 11:41:55 12/21/19 15 12/25/2014 bacte rial vagin osis + vagin itis panel , vagin al bvab 2 LOW - 0 score Not Available [facility] ([facility]) [address] [place], [address], 12/26/2014 11:41:55 12/21/1912/25/2014 bacte rial vagin osis [...] IS NOT NECES DARÍO. Not Available [facility] ([facility]) [address] [facility], [place], [address], 12/26/2014 11:41:55 12/21/1912/25/2014 bacte rial vagin osis + vagin itis panel , vagin al kathy albicans, MANJIT NEGATI VE negati ve Not Available [facility] ([facility]) [address] [facility], [place], [address], 12/26/2014 11:41:55 12/21/19 15 12/25/2014 bacte rial vagin osis + vagin itis panel , vagin al kathy glabrata, MANJIT NEGATI VE negati ve THIS TEST WAS ESTER MENA AND ITS PERFO RMJUSTIN E DANIELA WODOALLRI STICS DETER MINED BY [facility]. IT HAS NOT BEEN CLEAR ED OR APPRO KARSON BY THE FOOD AND DRUG ADMIN ISTRA TION. THE FDA HAS DETER MINED THAT SUCH CLEAR ANCE OR APPRO GABRIELLA IS NOT NECES DARÍO. Not Available [facility] ([facility]) [address] [place], [address], 12/26/2014 11:41:55 12/21/1912/26/2014 bacte rial vagin osis + vagin itis panel , vagin al trich vag by MANJIT NEGATI VE negati ve Not Available [facility] ([facility]) [address] [place], [address], 12/26/2014 11:41:55 12/21/1912/26/2014 bacte rial vagin osis + vagin itis panel , vagin al chlamydia trachomatis, MANJIT NEGATI VE negati ve Not Available [facility] ([facility]) [address] [place], [address], 12/26/2014 11:41:55 12/21/1912/26/2014 bacte rial vagin osis + vagin itis panel , vagin al neisseria gonorrhoeae, MANJIT NEGATI VE negati ve Not Available [facility] ([facility]) [address] [place], [address], 12/26/2014 11:41:55 12/21/1912/24/2014 HSV (1+2) DNA, qual, PCR, unspe cifie d speci men hsv 1 MANJIT NEGATI VE negati ve Not Available [facility] ([facility]) [address] [place], [address], 12/26/2014 11:41:56 12/21/19 15 12/24/2014 HSV (1+2) DNA, qual, PCR, unspe cifie d speci men hsv 2 MANJIT NEGATI VE negati ve Not Available [facility] ([facility]) [address] [facility], [place], [address], 12/26/2014 11:41:56 12/21/19 15 12/23/2014 cultu re, [...] LINES , MMWR, 2009) Not Available [facility] ([facility]) [address] [facility], [place], [address], 12/26/2014 11:41:56 12/21/19 15 12/21/2014 CBC w/ auto diff WBC 5.5 x10e3 /uL 3.4-10 .8 Not Available [facility] ([facility]) [address] [facility], [place], [address], 12/26/2014 16:34:31 12/21/19 15 12/21/2014 CBC w/ auto diff RBC 4.68 x10e6 /uL 3.77-5 .28 Not Available [facility] ([facility]) [address] [place], [address], 12/26/2014 16:34:31 12/21/19 15 12/21/2014 CBC w/ auto diff hemoglobin 13.9 g/dL 11.1-1 5.9 Not Available [facility] ([facility]) [address] [place], [address], 12/26/2014 16:34:31 12/21/19 15 12/21/2014 CBC w/ auto diff hematocrit 41.5 % 34.0-4 6.6 Not Available [facility] ([facility]) [address] [facility], [place], [address], 12/26/2014 16:34:31 12/21/19 15 12/21/2014 CBC w/ auto diff MCV 89 fL 79-97 Not Available [facility] ([facility]) [address] [place], [address], 12/26/2014 16:34:31 12/21/19 15 12/21/2014 CBC w/ auto diff MCH 29.7 pg 26.6-3 3.0 Not Available [facility] ([facility]) [address] [facility], [place], [address], 12/26/2014 16:34:31 12/21/19 15 12/21/2014 CBC w/ auto diff MCHC 33.5 g/dL 31.5-3 5.7 Not Available [facility] ([facility]) [address] [facility], [place], [address], 12/26/2014 16:34:31 12/21/19 15 12/21/2014 CBC w/ auto diff RDW 13.2 % 12.3-1 5.4 Not Available [facility] ([facility]) [address] [facility], [place], [address], 12/26/2014 16:34:31 12/21/1912/21/2014 CBC w/ auto diff platelets 298 x10e3 /uL 150-37 9 Not Available [facility] ([facility]) [address] [place], [address], 12/26/2014 16:34:31 12/21/19 15 12/21/2014 CBC w/ auto diff neutrophils 55 % Not Available [facility] ([facility]) [address] [place], [address], 12/26/2014 16:34:31 12/21/19 15 12/21/2014 CBC w/ auto diff lymphs 33 % Not Available [facility] ([facility]) [address] [place], [address], 12/26/2014 16:34:31 12/21/19 15 12/21/2014 CBC w/ auto diff monocytes 8 % Not Available [facility] ([facility]) [address] [place], [address], 12/26/2014 16:34:31 12/21/19 15 12/21/2014 CBC w/ auto diff eos 3 % Not Available [facility] ([facility]) [address] [place], [address], 12/26/2014 16:34:31 12/21/19 15 12/21/2014 CBC w/ auto diff basos 1 % Not Available [facility] ([facility]) [address] [place], [address], 12/26/2014 16:34:31 12/21/19 15 12/21/2014 CBC w/ auto diff neutrophils (absolute) 3.1 x10e3 /uL 1.4-7. 0 Not Available [facility] ([facility]) [address] [place], [address], 12/26/2014 16:34:31 12/21/1912/21/2014 CBC w/ auto diff lymphs (absolute) 1.8 x10e3 /uL 0.7-3. 1 Not Available [facility] ([facility]) [address] [place] [address], [address], 12/26/2014 16:34:31 12/21/19 15 12/21/2014 CBC w/ auto diff monocytes(ab solute) 0.4 x10e3 /uL 0.1-0. 9 Not Available [facility] ([facility]) [address] [place], [address], 12/26/2014 16:34:31 12/21/19 15 12/21/2014 CBC w/ auto diff eos (absolute) 0.2 x10e3 /uL 0.0-0. 4 Not Available [facility] ([facility]) [address] [place], [address], 12/26/2014 16:34:31 12/21/19 15 12/21/2014 CBC w/ auto diff baso (absolute) 0.0 x10e3 /uL 0.0-0. 2 Not Available [facility] ([facility]) [address] [place], [address], 12/26/2014 16:34:31 12/21/19 15 12/21/2014 CBC w/ auto diff immature granulocytes 0 % Not Available [facility] ([facility]) [address] [place], [address], 12/26/2014 16:34:31 12/21/1912/21/2014 CBC w/ auto diff immature grans (abs) 0.0 x10e3 /uL 0.0-0. 1 Not Available [facility] ([facility]) [address] [place], [address], 12/26/2014 16:34:31 12/21/1912/21/2014 CMP, serum or plasm a glucose, serum 99 mg/dL 65-99 Not Available [facility] ([facility]) [address] [place], [address], 12/26/2014 16:34:32 12/21/1912/21/2014 CMP, serum or plasm a BUN 13 mg/dL 6-24 Not Available [facility] ([facility]) [address] [place], [address], 12/26/2014 16:34:32 12/21/19 15 12/21/2014 CMP, serum or plasm a creatinine, serum 0.81 mg/dL 0.57-1 .00 Not Available [facility] ([facility]) [address] [place], [address], 12/26/2014 16:34:32 12/21/19 15 12/21/2014 CMP, serum or plasm a eGFR if nonafricn AM 85 mL/mi n/1.7 3 >59 Not Available [facility] ([facility]) [address] [place], [address], 12/26/2014 16:34:32 12/21/19 15 12/21/2014 CMP, serum or plasm a eGFR if africn AM 98 mL/mi n/1.7 3 >59 Not Available [facility] ([facility]) [address] [place], [address], 12/26/2014 16:34:32 12/21/19 15 12/21/2014 CMP, serum or plasm a BUN/creatini ne ratio 16 9-23 Not Available [facility] ([facility]) [address] [place], [address], 12/26/2014 16:34:32 12/21/19 15 12/21/2014 CMP, serum or plasm a sodium, serum 140 mmol/ L 134-14 4 Not Available [facility] ([facility]) [address] [place], [address], 12/26/2014 16:34:32 12/21/19 15 12/21/2014 CMP, serum or plasm a potassium, serum 4.3 mmol/ L 3.5-5. 2 Not Available [facility] ([facility]) [address] [place], [address], 12/26/2014 16:34:32 12/21/19 15 12/21/2014 CMP, serum or plasm a chloride, serum 97 mmol/ L 97-108 Not Available [facility] ([facility]) [address] [facility] [place], [address], 12/26/2014 16:34:32 12/21/1912/21/2014 CMP, serum or plasm a carbon dioxide, total 27 mmol/ L 18-29 Not Available [facility] ([facility]) [address] [facility] [place], [address], 12/26/2014 16:34:32 12/21/1912/21/2014 CMP, serum or plasm a calcium, serum 10.3 mg/dL 8.7-10 .2 high Not Available [facility] ([facility]) [address] [facility] [place], [address], 12/26/2014 16:34:32 12/21/1912/21/2014 CMP, serum or plasm a protein, total, serum 7.2 g/dL 6.0-8. 5 Not Available [facility] ([facility]) [address] [facility] [place], [address], 12/26/2014 16:34:32 12/21/1912/21/2014 CMP, serum or plasm a albumin, serum 4.7 g/dL 3.5-5. 5 Not Available [facility] ([facility]) [address] [facility] [place], [address], 12/26/2014 16:34:32 12/21/1912/21/2014 CMP, serum or plasm a globulin, total 2.5 g/dL 1.5-4. 5 Not Available [facility] ([facility]) [address] [facility] [place], [address], 12/26/2014 16:34:32 12/21/1912/21/2014 CMP, serum or plasm a A/G ratio 1.9 1.1-2. 5 Not Available [facility] ([facility]) [address] [facility] [place], [address], 12/26/2014 16:34:32 12/21/19 15 12/21/2014 CMP, serum or plasm a bilirubin, total 0.5 mg/dL 0.0-1. 2 Not Available [facility] ([facility]) [address] [place], [address], 12/26/2014 16:34:32 12/21/19 15 12/21/2014 CMP, serum or plasm a alkaline phosphatase, S 80 IU/L 39-117 Not Available [facility] ([facility]) [address] [facility], [place], [address], 12/26/2014 16:34:32 12/21/19 15 12/21/2014 CMP, serum or plasm a AST (SGOT) 26 IU/L 0-40 Not Available [facility] ([facility]) [address] [place], [address], 12/26/2014 16:34:32 12/21/19 15 12/21/2014 CMP, serum or plasm a ALT (SGPT) 25 IU/L 0-32 Not Available [facility] ([facility]) [address] [facility], [place], [address], 12/26/2014 16:34:32 12/21/19 15 12/20/2014 yfn (risk [...] EZIO ON SURGE RY. Not Available [facility] ([facility]) [address] [place], [address], 12/26/2014 16:34:32 12/21/19 15 12/20/2014 yfn (risk [...] HOLGUIN ON SURGE RY. Not Available [facility] ([facility]) [address] [facility], [place], [address], 12/26/2014 16:34:32 12/21/19 15 12/20/2014 yfn (risk [...] DIAGN OSTIC ASSAY . Not Available [facility] ([facility]) [address] [facility], [place], [address], 12/26/2014 16:34:32 12/21/19 15 12/24/2014 yfn (risk of ovari an malig ezio algor ithm score ), serum (lizzie enopa usal) he4 45 pmol/ L 0-150 FUJIR EBIO EIA METHO DOLOG Y . CA125 VALUE S OBTAI NELLY WITH DIFFE RENT ASSAY METHO DS OR KITS CANNO T BE USED INTER LARSON EABLY . Not Available [facility] ([facility]) [address] [facility], [place], [address], 12/26/2014 16:34:32 12/21/19 15 12/26/2014 yfn (risk of ovari an malig ezio algor ithm score ), serum (lizzie enopa usal) cancer antigen 125 (Ca125) 16.2 U/mL 0.0-35 .0 ABBOT T CMIA METHO DOLOG Y Not Available [facility] ([facility]) [address] [place], [address], 12/26/2014 16:34:32 12/21/19 15 12/26/2014 yfn (risk of ovari an malig ezio algor ithm score ), serum (lizzie enopa usal) premenopausa l yfn 0.59 see below Not Available [facility] ([facility]) [address] [place], [address], 12/26/2014 16:34:32 12/21/19 15 12/26/2014 yfn (risk of ovari an malig ezio algor ithm score ), serum (lizzie enopa usal) postmenopaus al yfn 1.10 see below Not Available [facility] ([facility]) [address] [facility], [place], [address], 12/26/2014 16:34:32 12/21/19 15 12/21/2014 HbA1c (hemo globi n A1c), blood hemoglobin A1C 5.3 % 4.8-5. 6 . INCRE ASED RISK FOR DIABE SHON: 5.7 - 6.4 DIABE SHON: >6.4 GLYCE HARJINDER CONTR OL FOR ADULT S WITH DIABE SHON: <7.0 Not Available [facility] ([facility]) [address] [place], [address], 12/26/2014 16:34:33 12/21/1912/21/2014 ca 125, serum cancer antigen (Ca) 125 15.6 U/mL 0.0-34 .0 FREDY ECLIA METHO DOLOG Y Not Available [facility] ([facility]) [address] [place], [address], 12/26/2014 16:34:34 12/21/1912/21/2014 FSH (foll icle- stimu latin g hormo ne), serum FSH 88.6 mIU/m L FOLLI CULAR PHASE 3.5 - 12.5 OVULA TION PHASE 4.7 - 21.5 LUTEA L PHASE 1.7 - 7.7 POSTM ENOPA USAL 25.8 - 134.8 Not Available [facility] ([facility]) [address] [place], [address], 12/26/2014 16:34:34 12/21/19 15 12/21/2014 estra diol, serum estradiol <5.1 pg/mL ADULT FEMAL E: FOLLI CULAR PHASE 12.5 - 166.0 OVULA TION PHASE 85.8 - 498.0 LUTEA L PHASE 43.8 - 211.0 POSTM ENOPA USAL <6.0 - 54.7 PREGN TINY 1ST TRIME STER 215.0 - >4300 .0 GIRLS (1-10 YEARS ) 6.0 - 27.0 FREDY ECLIA METHO DOLOG Y Not Available [facility] ([facility]) [address] [place], [address], 12/26/2014 16:34:35 12/21/1912/21/2014 TSH, ultra -sens itive , serum TSH 1.140 uIU/m L 0.450- 4.500 Not Available [facility] ([facility]) [address] [place], [address], 12/26/2014 16:34:36 12/21/1912/21/2014 proge stero ne, serum progesterone 0.4 NG/mL FOLLI CULAR PHASE 0.2 - 1.5 LUTEA L PHASE 1.7 - 27.0 OVULA TION PHASE 0.8 - 3.0 PREGN ANT FIRST TRIME STER 8.8 - 48.6 SECON D TRIME STER 12.4 - 75.8 THIRD TRIME STER 58.5 - 222.3 POSTM ENOPA USAL 0.1 - 0.8 Not Available [facility] ([facility]) [address] [place], [address], 12/26/2014 16:34:36 11/04/19 16 11/05/2015 TSH + free T4, serum TSH 1.100 uIU/m L 0.450- 4.500 Not Available [facility] ([facility]) [address] [facility] [place], [address], 11/05/2015 07:22:45 11/04/19 16 11/05/2015 TSH + free T4, serum T4,free(dire ct) 1.22 NG/dL 0.82-1 .77 Not Available [facility] ([facility]) [address] [facility], [place], [address], 11/05/2015 07:22:45 11/04/19 16 11/05/2015 CBC w/ auto diff WBC 5.5 x10e3 /uL 3.4-10 .8 Not Available [facility] ([facility]) [address] [facility], [place], [address], 11/05/2015 07:22:45 11/04/19 16 11/05/2015 CBC w/ auto diff RBC 4.75 x10e6 /uL 3.77-5 .28 Not Available [facility] ([facility]) [address] [facility], [place], [address], 11/05/2015 07:22:45 11/04/19 16 11/05/2015 CBC w/ auto diff hemoglobin 13.9 g/dL 11.1-1 5.9 Not Available [facility] ([facility]) [address] [place], [address], 11/05/2015 07:22:45 11/04/19 16 11/05/2015 CBC w/ auto diff hematocrit 40.8 % 34.0-4 6.6 Not Available [facility] ([facility]) [address] [place], [address], 11/05/2015 07:22:45 11/04/19 16 11/05/2015 CBC w/ auto diff MCV 86 fL 79-97 Not Available [facility] ([facility]) [address] [facility], [place], [address], 11/05/2015 07:22:45 11/04/19 16 11/05/2015 CBC w/ auto diff MCH 29.3 pg 26.6-3 3.0 Not Available [facility] ([facility]) [address] [facility], [place], [address], 11/05/2015 07:22:45 11/04/19 16 11/05/2015 CBC w/ auto diff MCHC 34.1 g/dL 31.5-3 5.7 Not Available [facility] ([facility]) [address] [facility], [place], [address], 11/05/2015 07:22:45 11/04/19 16 11/05/2015 CBC w/ auto diff RDW 13.0 % 12.3-1 5.4 Not Available [facility] ([facility]) [address] [facility], [place], [address], 11/05/2015 07:22:45 11/04/19 16 11/05/2015 CBC w/ auto diff platelets 408 x10e3 /uL 150-37 9 above high normal Not Available [facility] ([facility]) [address] [facility], [place], [address], 11/05/2015 07:22:45 11/04/19 16 11/05/2015 CBC w/ auto diff neutrophils 51 % Not Available [facility] ([facility]) [address] [facility], [place], [address], 11/05/2015 07:22:45 11/04/19 16 11/05/2015 CBC w/ auto diff lymphs 40 % Not Available [facility] ([facility]) [address] [facility], [place], [address], 11/05/2015 07:22:45 11/04/19 16 11/05/2015 CBC w/ auto diff monocytes 7 % Not Available [facility] ([facility]) [address] [place], [address], 11/05/2015 07:22:45 11/04/19 16 11/05/2015 CBC w/ auto diff eos 2 % Not Available [facility] ([facility]) [address] [place], [address], 11/05/2015 07:22:45 11/04/19 16 11/05/2015 CBC w/ auto diff basos 0 % Not Available [facility] ([facility]) [address] [place], [address], 11/05/2015 07:22:45 11/04/19 16 11/05/2015 CBC w/ auto diff immature cells 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 0 Not Available [facility] ([facility]) [address] [place], [address], 11/05/2015 07:22:45 11/04/19 16 11/05/2015 CBC w/ auto diff lymphs (absolute) 2.2 x10e3 /uL 0.7-3. 1 Not Available [facility] ([facility]) [address] [place], [address], 11/05/2015 07:22:45 11/04/19 16 11/05/2015 CBC w/ auto diff monocytes(ab solute) 0.4 x10e3 /uL 0.1-0. 9 Not Available [facility] ([facility]) [address] [place], [address], 11/05/2015 07:22:45 11/04/19 16 11/05/2015 CBC w/ auto diff eos (absolute) 0.1 x10e3 /uL 0.0-0. 4 Not Available [facility] ([facility]) [address] [place], [address], 11/05/2015 07:22:45 11/04/19 16 11/05/2015 CBC w/ auto diff baso (absolute) 0.0 x10e3 /uL 0.0-0. 2 Not Available [facility] ([facility]) [address] [facility], [place], [address], 11/05/2015 07:22:45 11/04/19 16 11/05/2015 CBC w/ auto diff immature granulocytes 0 % Not Available [facility] ([facility]) [address] [place], [address], 11/05/2015 07:22:45 11/04/19 16 11/05/2015 CBC w/ auto diff immature grans (abs) 0.0 x10e3 /uL 0.0-0. 1 Not Available [facility] ([facility]) [address] [facility], [place], [address], 11/05/2015 07:22:45 11/04/19 16 11/05/2015 CBC w/ auto diff NRBC COMPUTER PERIPHERAL EQUIPMENT OPERATOR Not Available [facility] ([facility]) [address] [place], [address], 11/05/2015 07:22:45 11/04/19 16 11/05/2015 CBC w/ auto diff hematology comments: COMPUTER PERIPHERAL EQUIPMENT OPERATOR Not Available [facility] ([facility]) [address] [place], [address], 11/05/2015 07:22:45 11/04/19 16 11/05/2015 CMP, serum or plasm a glucose, serum 108 mg/dL 65-99 above high normal Not Available [facility] ([facility]) [address] [place], [address], 11/05/2015 07:22:46 11/04/19 16 11/05/2015 CMP, serum or plasm a BUN 11 mg/dL 6-24 Not Available [facility] ([facility]) [address] [facility] [place], [address], 11/05/2015 07:22:46 11/04/19 16 11/05/2015 CMP, serum or plasm a creatinine, serum 0.76 mg/dL 0.57-1 .00 Not Available [facility] ([facility]) [address] [facility] [place], [address], 11/05/2015 07:22:46 11/04/19 16 11/05/2015 CMP, serum or plasm a eGFR if nonafricn AM 91 mL/mi n/1.7 3 >59 Not Available [facility] ([facility]) [address] [facility] [place], [address], 11/05/2015 07:22:46 11/04/19 16 11/05/2015 CMP, serum or plasm a eGFR if africn AM 105 mL/mi n/1.7 3 >59 Not Available [facility] ([facility]) [address] [facility] [place], [address], 11/05/2015 07:22:46 11/04/19 16 11/05/2015 CMP, serum or plasm a BUN/creatini ne ratio 14 9-23 Not Available [facility] ([facility]) [address] [facility] [place], [address], 11/05/2015 07:22:46 11/04/19 16 11/05/2015 CMP, serum or plasm a sodium, serum 143 mmol/ L 134-14 4 Not Available [facility] ([facility]) [address] [facility] [place], [address], 11/05/2015 07:22:46 11/04/19 16 11/05/2015 CMP, serum or plasm a potassium, serum 4.5 mmol/ L 3.5-5. 2 Not Available [facility] ([facility]) [address] [facility] [place], [address], 11/05/2015 07:22:46 11/04/19 16 11/05/2015 CMP, serum or plasm a chloride, serum 102 mmol/ L 97-108 Not Available [facility] ([facility] [address] [facility] [place], [address], 11/05/2015 07:22:46 11/04/19 16 11/05/2015 CMP, serum or plasm a carbon dioxide, total 25 mmol/ L 18-29 Not Available [facility] ([facility]) [address] [facility] [place], [address], 11/05/2015 07:22:46 11/04/19 16 11/05/2015 CMP, serum or plasm a calcium, serum 9.9 mg/dL 8.7-10 .2 Not Available [facility] ([facility]) [address] [place], [address], 11/05/2015 07:22:46 11/04/19 16 11/05/2015 CMP, serum or plasm a protein, total, serum 7.4 g/dL 6.0-8. 5 Not Available [facility] ([facility]) [address] [facility], [place], [address], 11/05/2015 07:22:46 11/04/19 16 11/05/2015 CMP, serum or plasm a albumin, serum 4.6 g/dL 3.5-5. 5 Not Available [facility] ([facility]) [address] [facility] [place], [address], 11/05/2015 07:22:46 11/04/1911/05/2015 CMP, serum or plasm a globulin, total 2.8 g/dL 1.5-4. 5 Not Available [facility] ([facility]) [address] [facility] [place], [address], 11/05/2015 07:22:46 11/04/19 16 11/05/2015 CMP, serum or plasm a A/G ratio 1.6 1.1-2. 5 Not Available [facility] ([facility]) [address] [place], [address], 11/05/2015 07:22:46 11/04/19 16 11/05/2015 CMP, serum or plasm a bilirubin, total 0.3 mg/dL 0.0-1. 2 Not Available [facility] ([facility]) [address] [place], [address], 11/05/2015 07:22:46 11/04/19 16 11/05/2015 CMP, serum or plasm a alkaline phosphatase, S 84 IU/L 39-117 Not Available [facility] ([facility]) [address] [place], [address], 11/05/2015 07:22:46 11/04/19 16 11/05/2015 CMP, serum or plasm a AST (SGOT) 24 IU/L 0-40 Not Available [facility] ([facility]) [address] [place], [address], 11/05/2015 07:22:46 11/04/19 16 11/05/2015 CMP, serum or plasm a ALT (SGPT) 28 IU/L 0-32 Not Available [facility] ([facility]) [address] [place], [address], 11/05/2015 07:22:46 11/04/19 16 11/05/2015 HbA1c (hemo globi n A1c), blood hemoglobin A1C 5.5 % 4.8-5. 6 PRE-D IABET ES: 5.7 - 6.4 DIABE SHON: >6.4 GLYCE HARJINDER CONTR OL FOR ADULT S WITH DIABE SHON: <7.0 Not Available [facility] ([facility]) [address] [place], [address], 11/05/2015 07:22:47 11/04/19 16 11/05/2015 FSH (foll icle- stimu latin g hormo ne), serum FSH 102.7 mIU/m L FOLLI CULAR PHASE 3.5 - 12.5 OVULA TION PHASE 4.7 - 21.5 LUTEA L PHASE 1.7 - 7.7 POSTM ENOPA USAL 25.8 - 134.8 Not Available [facility] ([facility]) [address] [facility], [place], [address], 11/05/2015 07:22:47 11/04/19 16 11/05/2015 estra diol, serum estradiol 9.1 pg/mL ADULT FEMAL E: FOLLI CULAR PHASE 12.5 - 166.0 OVULA TION PHASE 85.8 - 498.0 LUTEA L PHASE 43.8 - 211.0 POSTM ENOPA USAL <6.0 - 54.7 PREGN TINY 1ST TRIME STER 215.0 - >4300 .0 GIRLS (1-10 YEARS ) 6.0 - 27.0 FREDY ECLIA METHO DOLOG Y Not Available [facility] ([facility]) [address] [facility], [place], [address], 11/05/2015 07:22:48 11/04/19 16 11/05/2015 proge stero ne, serum progesterone 0.3 NG/mL FOLLI CULAR PHASE 0.2 - 1.5 LUTEA L PHASE 1.7 - 27.0 OVULA TION PHASE 0.8 - 3.0 PREGN ANT FIRST TRIME STER 8.8 - 48.6 SECON D TRIME STER 12.4 - 75.8 THIRD TRIME STER 58.5 - 222.3 POSTM ENOPA USAL 0.1 - 0.8 Not Available [facility] ([facility]) [address] [facility], [place], [address], 11/05/2015 07:22:49 11/04/19 16 11/06/2015 cultu re, urine urine culture, routine FINAL REPORT Not Available [facility] ([facility]) [address] [facility], [place], [address], 11/06/2015 06:12:59 11/04/19 16 11/06/2015 cultu re, urine result 1 FORD Gambino MIXED UROGE NITAL CRISTI 10,00 0-25, 000 COLON Y FORMI NG UNITS PER ML Not Available [facility] ([facility]) [address] [place], [address], 11/06/2015 06:12:59 11/04/19 16 11/05/2015 pap, IG + HPV, cervi alon diagnosis: FORD VALADEZ FOR INTRA EPITH ELIAL LESIO N AND RIGOBERTO HOLGUIN . Not Available [facility] ([facility]) [address] [place], [address], 11/07/2015 16:41:55 11/04/19 16 11/05/2015 pap, IG + HPV, cervi alon specimen adequacy: FORD Gambino SATIS FACTO RY FOR EVALU ATION . ENDOC ERVIC AL AND/O R SQUAM OUS METAP LASTI C CELLS (ENDO CERVI ALON COMPO NENT) ARE PRESE NT. Not Available [facility] ([facility]) [address] [place], [address], 11/07/2015 16:41:55 11/04/19 16 11/05/2015 pap, IG + HPV, cervi alon clinician provided ICD10: FORD Gambino Z01.4 19 Not Available [facility] ([facility]) [address] [place], [address], 11/07/2015 16:41:55 11/04/19 16 11/05/2015 pap, IG + HPV, cervi alon performed by: FORD GIVENS CYTOT KEYANA Gambino (ASCP ) Not Available [facility] ([facility]) [address] [place], [address], 11/07/2015 16:41:55 11/04/19 16 11/05/2015 pap, IG + HPV, cervi alon . . Not Available [facility] ([facility]) [address] [place], [address], 11/07/2015 16:41:55 11/04/19 16 11/05/2015 pap, IG [...] TS DO OCCUR . Not Available [facility] ([facility]) [address] [place], [address], 11/07/2015 16:41:55 11/04/19 16 11/05/2015 pap, IG + HPV, cervi alon test methodology: FORD T THIS LIQUI D BASED THINP REP(R ) PAP TEST WAS SCREE NELLY WITH THE USE OF AN IMAGE GUIDE Diana Heller. Not Available [facility] ([facility]) [address] [place], [address], 11/07/2015 16:41:55 11/04/19 16 11/07/2015 pap, IG + HPV, cervi alon HPV aptima NEGATI VE negati ve THIS TEST DETEC TS FOURT EEN HIGH- RISK HPV TYPES (16/1 8/31/ 33/35 /39/4 5/ 51/52 /56/5 8/59/ 66/68 ) WITHO UT DIFFE RENTI ATION . Not Available [facility] ([facility]) [address] [facility], [place], [address], 11/07/2015 16:41:55 11/04/19 16 11/06/2015 bacte rial vagin osis + vagin itis panel , vagin al trich vag by MANJIT NEGATI VE negati ve Not Available [facility] ([facility]) [address] [place], [address], 11/08/2015 06:11:53 11/04/19 16 11/07/2015 bacte rial vagin osis + vagin itis panel , vagin al atopobium vaginae LOW - 0 score Not Available [facility] ([facility]) [address] [facility], [place], [address], 11/08/2015 06:11:53 11/04/19 16 11/07/2015 bacte rial vagin osis + vagin itis panel , vagin al bvab 2 LOW - 0 score Not Available [facility] ([facility]) [address] [facility], [place], [address], 11/08/2015 06:11:53 11/04/19 16 11/07/2015 bacte rial [...] IS NOT NECES DARÍO. Not Available [facility] ([facility]) [address] [facility], [place], [address], 11/08/2015 06:11:53 11/04/19 16 11/07/2015 bacte rial vagin osis + vagin itis panel , vagin al kathy albicans, MANJIT NEGATI VE negati ve Not Available [facility] ([facility]) [address] [place], [address], 11/08/2015 06:11:53 11/04/19 16 11/07/2015 bacte rial [...] TO FLUCO NAZOL E. Not Available [facility] ([facility]) [address] [place], [address], 11/08/2015 06:11:53 11/04/19 16 11/07/2015 bacte rial vagin osis + vagin itis panel , vagin al chlamydia trachomatis, MANJIT NEGATI VE negati ve Not Available [facility] ([facility]) [address] [place], [address], 11/08/2015 06:11:53 11/04/19 16 11/07/2015 bacte rial vagin osis + vagin itis panel , vagin al neisseria gonorrhoeae, MANJIT NEGATI VE negati ve Not Available [facility] ([facility]) [address] [place], [address], 11/08/2015 06:11:53 11/04/19 16 11/07/2015 STI panel kathy albicans, MANJIT TNP DUPLI CLAUDIA PROCE DURE ORDER ED. Not Available [facility] ([facility]) [address] [place], [address], 11/08/2015 06:11:54 11/04/19 16 11/07/2015 STI panel kathy glabrata, MANJIT TNP DUPLI CLAUDIA PROCE DURE ORDER ED. Not Available [facility] ([facility]) [address] [facility], [place], [address], 11/08/2015 06:11:54 11/04/19 16 11/07/2015 STI panel kathy tropicalis, MANJIT NEGATI VE negati ve Not Available [facility] ([facility]) [address] [place], [address], 11/08/2015 06:11:54 11/04/19 16 11/07/2015 STI panel kathy parapsilosis , MANJIT NEGATI VE negati ve Not Available [facility] ([facility]) [address] [place], [address], 11/08/2015 06:11:54 11/04/19 16 11/07/2015 STI panel kathy lusitaniae, MANJIT NEGATI VE negati ve Not Available [facility] ([facility]) [address] [place], [address], 11/08/2015 06:11:54 11/04/19 16 11/07/2015 STI panel [...] IS NOT NECES DARÍO. Not Available [facility] ([facility]) [address] [facility], [place], [address], 11/08/2015 06:11:54 11/04/19 16 11/06/2015 HSV (1+2) DNA, qual, PCR, unspe cifie d speci men hsv 1 MANJIT NEGATI VE negati ve Not Available [facility] ([facility]) [address] [place], [address], 11/08/2015 06:11:54 11/04/19 16 11/06/2015 HSV (1+2) DNA, qual, PCR, unspe cifie d speci men hsv 2 MANJIT NEGATI VE negati ve Not Available [facility] ([facility]) [address] [place], [address], 11/08/2015 06:11:54 12/04/19 16 12/04/2015 yfn (risk [...] EZIO ON SURGE RY. Not Available [facility] ([facility]) [address] [place], [address], 12/06/2015 16:25:24 12/04/19 16 12/04/2015 yfn (risk [...] EZIO ON SURGE RY. Not Available [facility] ([facility]) [address] [place], [address], 12/06/2015 16:25:24 12/04/19 16 12/04/2015 yfn (risk [...] DIAGN OSTIC ASSAY . Not Available [facility] ([facility]) [address] [place], [address], 12/06/2015 16:25:24 12/04/19 16 12/06/2015 yfn (risk of ovari an malig ezio algor ithm score ), serum (lizzie enopa usal) cancer antigen 125 (Ca125) 16.6 U/mL 0.0-35 .0 ABBOT T CMIA METHO DOLOG Y Not Available [facility] ([facility]) [address] [facility], [place], [address], 12/06/2015 16:25:24 12/04/19 16 12/06/2015 yfn (risk of ovari an malig ezio algor ithm score ), serum (lizzie enopa usal) he4 42 pmol/ L 0-150 FUJIR EBIO EIA METHO DOLOG Y CA125 VALUE S OBTAI NELLY WITH DIFFE RENT ASSAY METHO DS OR KITS CANNO T BE USED INTER LARSON EABLY . Not Available [facility] ([facility]) [address] [place], [address], 12/06/2015 16:25:24 12/04/19 16 12/06/2015 yfn (risk of ovari an malig ezio algor ithm score ), serum (lizzie enopa usal) premenopausa l yfn 0.51 see below Not Available [facility] ([facility]) [address] [place], [address], 12/06/2015 16:25:24 12/04/19 16 12/06/2015 yfn (risk of ovari an malig ezio algor ithm score ), serum (lizzie enopa usal) postmenopaus al yfn 1.05 see below Not Available [facility] ([facility]) [address] [place], [address], 12/06/2015 16:25:24 05/13/20 16 05/15/2016 bacte rial vagin osis + vagin itis panel , vagin al trich vag by MANJIT NEGATI VE negati ve Not Available [facility] ([facility]) [address] [place], [address], 05/17/2016 06:04:50 05/13/20 16 05/15/2016 bacte rial vagin osis + vagin itis panel , vagin al chlamydia trachomatis, MANJIT NEGATI VE negati ve Not Available [facility] ([facility]) [address] [facility], [place], [address], 05/17/2016 06:04:50 05/13/20 16 05/15/2016 bacte rial vagin osis + vagin itis panel , vagin al neisseria gonorrhoeae, MANJIT NEGATI VE negati ve Not Available [facility] ([facility]) [address] [place], [address], 05/17/2016 06:04:50 05/13/20 16 05/16/2016 bacte rial vagin osis + vagin itis panel , vagin al kathy albicans, MANJIT NEGATI VE negati ve Not Available [facility] ([facility]) [address] [place], [address], 05/17/2016 06:04:50 05/13/20 16 05/16/2016 bacte rial [...] IS NOT NECES DARÍO. Not Available [facility] ([facility]) [address] [facility], [place], [address], 05/17/2016 06:04:50 05/13/20 16 05/17/2016 bacte rial vagin osis + vagin itis panel , vagin al atopobium vaginae LOW - 0 score Not Available [facility] ([facility]) [address] [facility], [place], [address], 05/17/2016 06:04:50 05/13/20 16 05/17/2016 bacte rial vagin osis + vagin itis panel , vagin al bvab 2 LOW - 0 score Not Available [facility] ([facility]) [address] [facility], [place], [address], 05/17/2016 06:04:50 05/13/20 16 05/17/2016 bacte rial [...] IS NOT NORMA CHANEL. Not Available [facility] ([facility]) [address] [facility], [place], [address], 05/17/2016 06:04:50 12/13/19 15 12/12/2014 ultra sound , pelvi c trans abdom inal No observ ation record ed. [facility] (Imaging) [address] [place], [address], 12/20/2014 19:01:30 09/04/20 15 09/02/2015 MAMMO , diagn ostic , digit al, bilat eral No observ ation record ed. [email or web address] [facility] [address], [place], [address], 05/13/2016 13:15:22 12/03/19 16 11/04/2015 CT, abdom en + pelvi s, w/ contr ast No observ ation record ed. err[address] [facility] [address] [facility], [place], [address], 05/13/2016 16:18:12 12/06/19 16 12/06/2015 ultra sound , pelvi c trans abdom inal & trans vagin al No observ ation record ed. [address] ([employer]) [address] [place], [address], 05/13/2016 16:18:12 05/15/20 16 05/15/2016 US, trans vagin al No observ ation record ed. [email or web address] [place], [address], 06/02/2016 09:44:41 Result Notes None recorded. Problems Name Problem SNOMED Code Status Onset Date Resolution Date Notes Provider Name and Address Organization Details Recorded Time Endometriosi s of uterus 09611369 Active Cosme Gloria null, [place] - [facility] 6 13:25:11 Menopausal syndrome 924016861 Active Valerie Quiroz MD Attn: Accounting, [address] [facility], [place], [address], [place] - [facility] 6 18:44:51 Dermatophyto sis of the body Active Valerie Quiroz MD Attn: Accounting, [address] [place], [address], [place] - [facility] 6 18:44:51 Candidiasis 78774339 Active Valerie Quiroz MD Attn: Accounting, [address] [place], [address], [facility] - [facility] 6 18:44:51 Headache 41551071 Active Valerie Quiroz MD Attn: Accounting, [address] [place], [address], [facility] - [facility] 6 18:44:51 Irritable bowel syndrome 38915102 Active Valerie Quiroz MD Attn: Accounting, [address] [place], [address], [facility] - [facility] 6 18:44:51 Left sided abdominal pain 405098937 Active Valerie Quiroz MD Attn: Accounting, [address] [place], [address], [facility] - [facility] 6 18:44:51 Chronic pelvic pain of female 462465914 Active Natanael Valentino null, [place] - [facility] 6 10:54:30 Vaginitis 12540262 Active Valerie Quiroz MD Attn: Accounting, [address] [place], [address], [place] - [facility] 6 18:44:51 Uterine leiomyoma 20809725 Active Cosme Gloria null[place] [facility] 6 13:25:11 Endometrium thickened 480053626 Active Cosme Juani null[place] - [facility] 13:25:11 Problem Notes None recorded. Procedures Surgical History Date Name Laterality Status Provider Name and Address Organization Details Recorded Time 11/04/19 16 Date of Last Pap Smear completed Laure Pedraza MA [place] - [facility] 05/13/2016 15:06:51 09/13/19 09 Cholecystectomy completed Brenda Van MA [place] - [facility] 10/30/2014 10:26:54 09/13/19 09 Dilation and Curettage completed Brenda Van MA [facility] 12/10/2014 12:17:22 12/21/19 08 Caesarean Section completed Laure Pedraza MA [facility] 12/20/2014 15:28:58 09/13/19 03 Orthopedic Surgery completed Brenda Van MA [facility] 12/10/2014 12:17:22 09/13/19 03 Breast Surgery completed Brenda Van MA [facility] 12/10/2014 12:23:51 Laparoscopy completed Brenda Van MA [facility] 12/10/2014 12:17:22 Imaging Results None recorded. Procedure Notes None recorded. Medical Equipment None Reported. Allergies Allergen ID Allergen Name Allergen Category Reaction Reaction Severity Criticality Documentation Date Start Date Code Code System Note Provider Name and Address Organization Details Recorded Time 11043 codeine medicatio n itching moderate Not available 10/30/2014 2670 RxNorm rash Brenda Van MA null, [facility] 5 12:14:39 Medications Name Sig Start Date [...] Details Last Updated DateTime 11/04/2015 177.8 cm 63744.289 26 g 28.4 kg/m2 130/92 mm[Hg] Rebecca Slater MA [facility] 11/04/2015 15:13:22 Date Recorded Body height Body mass index (BMI) Body weight Systolic And Diastolic Provider Name and Address Organization Details Last Updated DateTime 12/20/2014 177.8 cm 28.7 kg/m2 38817.474 g 124/88 mm[Hg] Laure Pedraza MA [facility] 12/20/2014 15:31:11 Date Recorded Body weight Body height Body mass index (BMI) Systolic And Diastolic Provider Name and Address Organization Details Last Updated DateTime 05/13/2016 33644.881 63 g 177.8 cm 28.6 kg/m2 128/86 mm[Hg] DANIELA Salas [facility] 05/13/2016 15:05:42 Date Recorded Body height Body mass index (BMI) Body weight Systolic And Diastolic Provider Name and Address Organization Details Last Updated DateTime 06/03/2016 177.8 cm 28.7 kg/m2 89635.474 g 118/82 mm[Hg] DANIELA Pak [facility] 06/03/2016 10:36:57 Date Recorded Body height Body weight Body mass index (BMI) Systolic And Diastolic Provider Name and Address Organization Details Last Updated DateTime 06/10/2016 177.8 cm 44862.881 63 g 28.6 kg/m2 130/92 mm[Hg] Rebecca SlaterDANIELA [facility] 06/10/2016 12:34:41 Social History Question Answer Notes LastModified by [employer] Details LastModified Time Tobacco Smoking Status Never Smoker Brenda Van MA null, [facility] 10/30/2014 10:26:55 Do You Have An Advance Directive? No [email or web address] Information not available 10/30/2014 Is Blood Transfusion Acceptable In An Emergency? Yes [email or web address] Information not available 10/30/2014 What Is Your Level Of Caffeine Consumption? None [email or web address] Information not available 10/30/2014 How Much Tobacco Do You Chew? None [email or web address] Information not available 10/30/2014 What Type Of Diet Are You Following? REGULAR [email or web address] Information not available 10/30/2014 Education 4 Year College [email or web address] Information not available 10/30/2014 Live Alone Or With Others? With Others [email or web address] Information not available 10/30/2014 How Many Children Do You Have? 1 [email or web address] Information not available 10/30/2014 Performs Monthly Self-breast Exam? Yes [email or web address] Information no t available 10/30/2014 Do You Use Protection During Sex? Usually [email or web address] Information not available 10/30/2014 What Is Your Relationship Status? [email or web address] Information not available 10/30/2014 Seat Belts Used Routinely Yes [email or web address] Information not available 10/30/2014 Are You Sexually Active? Yes [email or web address] Information not available 10/30/2014 General Stress Level High [email or web address] Information not available 10/30/2014 Do You Use Sunscreen Routinely? Yes [email or web address] Information not available 10/30/2014 Sex: Unknown Functional Status Question Answer Note LastModified by [employer] Details LastModified Time What is your level of alcohol consumption? None [email or web address] Information not available 10/30/2014 Are you currently employed? 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 Occasional [email or web address] Information not available 10/30/2014 Mental Status None [...] Sclerosis N Colon Polyps N Heart Attack ([place]) N Diabetes N Cardiomyopathy N Blood Transfusions [...] ICD10 Code Diagnosis IMO Codes Diagnosis Note [id number] MD Liz Long (GAS REFRIGERATOR SERVICER) [address] [place] [address] [phone] 0 10/30/2014 09:49:37 10/30/2014 10:56:31 Gynecologic examination 42081203 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 620445566 [id number] MD Liz Long (GAS REFRIGERATOR SERVICER) [address] [place] [address] [phone] 0 12/10/2014 11:20:55 12/10/2014 13:01:08 Gynecologic examination 02565744 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 599141263 Streptococcus carrier 818781288 Endometrio sis of uterus 77505840 [id number] MD Liz Long (GAS REFRIGERATOR SERVICER) [address] [place] [address] [phone] 0 12/20/2014 14:54:18 12/23/2014 09:31:47 Streptococcus carrier 866348849 Menopausal syndrome 674764396 Dermatophy tosis of the body 218348508 Candidiasis 73413344 [id number] [facility]ERATOR SERVICER[facility] [address] [place] [address] [phone] 0 11/04/2015 14:31:13 11/04/2015 17:25:17 Gynecologic examination 06367059 Z01.419 Irritable bowel syndrome 85267576 K58.9 Menopausal syndrome 1237 76090 N95.9 Colitis 80692483 K52.9 [id number] MD [facility] (GAS REFRIGERATOR SERVICER) [address] [place] [address] [phone] 0 05/13/2016 13:52:53 05/14/2016 10:32:25 Candidiasis 87104943 B37.9 Chronic pe lvic pain of female 382027112 R10.2 Vaginitis 16172688 N76.0 [id number] MD [facility] (GAS REFRIGERATOR SERVICER) [address] [place] [address] [phone] 0 06/03/2016 09:47:51 06/05/2016 11:46:20 Uterine leiomyoma 23730023 D25.9 Endometrium thickened 44 9202288 R93.8 [id number] MD [facility] (GAS REFRIGERATOR SERVICER) [address] [place] [address] [phone] 06/10/2016 11:13:23 06/11/2016 17:50:59 Endometrium thickened 535995182 R93.8 Chronic pe lvic pain of female 947937638 R10.2 Uterine leiomyoma 063225 05 D25.9 Health Concerns Section Related Observation LastModified by Organization Detai ls LastModified Time None Recorded Concern Status LastModified by Organization Details LastModified Time None Recorded Advance Directives Directive N: Payers Insurance Date Sequence Insurance Name Policy Number Policy Mohamud Covered Member ID Mohamud Member ID Guarantor Name 11/04/2015 1 [facility] Alana Olguin [id number] Alana Olguin 06/08/[address] [facility] ([facility] [id number] Catrachito Olguin Jr [id number] Alana Olguin Notes Date Note Type Note Provider Name and Address Organization Details Recorded Time 5 text/html VaginitisReported by PatientHPIFor associated symptoms, patient reportsrashandlesions.ROS as noted in the HPI Cosme blum, [facility] 12/23/2014 09:31:06 6 text/html Annual GYNReported by [...] andfollowed with yearly pap smears. Cosme blum, [facility] 11/04/2015 17:15:28 6 text/html HERE FOR TEST RESULTS. She said she had an episode of post menopausal bleeding 2 years ago and endometrial biopsy was negative as per patient. Denies any bleeding since then Valerie Quiroz MD Attn: Accounting,[address] [place], [address], [facility] 06/03/2016 18:49:56 6 text/html Presenting for consultation with Dr. Gloria, Re: endometrial thickening and pelvic pain. I am standing in for Dr. Gloria as he was called away for Emergency. Natanael blum [facility] 06/11/2016 10:54:34 OBGyn Episode Ob Episode Information Episode Created Date Number of Fetuses Patient Bloodtype Patient rh Status Prepregnancy Weight lbs Domestic Partner Domestic Partner Phone Father Name Needle Board Repairer Status 10/30/19 15 1 CLOSED Fetus Data First Name Last Name Admitted to NICU Weight (g) Sex Living Outcome Pediatric Complications Fetus ID Race Codes Race Delivery Type 3628.73 6 F Full Term [id number] Ole Calculation Initial Ole Date Initial Exam [...]
--- OUTSIDE RECORDS SUMMARY | 2025-08-08 00:57 | XMS_ITS | Clinical Summary ---
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
--- OUTSIDE RECORDS SUMMARY | 2025-08-08 00:57 | XMS_ITS | Encounter Summary ---
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
--- OUTSIDE RECORDS SUMMARY | 2025-08-08 00:57 | XMS_ITS | Encounter Summary ---
Author Organization [facility] Address [address] [facility] [place] [address] Care Team Providers Care Downstream Biomanufacturing Technician Name Role Phone Loni Marks Primary Care Pr ovider Reason for Visit * Reason Onset Date Comments Future Appointment 12/12/2018 Encounter Details Date Type Department Care Team (Late st Contact Info) Description 12/12/2018 Telephone [facility] [address] [place] [address] Kyle Chanel Jr., MD [address] [facility] [address] [place] [address] Future Appointment Social History Tobacco Use Types Packs/Day Years Used Date Smoking Tobacco: Never Assessed Comments Unknown Sex and Gender Information Value Date Recorded Sex Assigned at Not on file 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 Gender Identity Not on file Sexual Orientation Not on file documented as of this encounter Miscellaneous Notes * Telephone Encounter - Yue Vallejo - 12/12/2018 2:21 PM CDT PT would like for someone to give her a call about appointment tomorrow regarding if she needs results for her ct scan CB: [phone] documented in this encounter Plan of Treatment Not on file documented as of this encounter Visit Diagnoses Not on filedocumented in this encounter Care Teams Downstream Biomanufacturing Technician Relationship Specialty Start Date End Date Loni Marks PA [address] [place] [address] PCP - General 11/29/18 documented as of this encounter
--- OUTSIDE RECORDS SUMMARY | 2025-08-08 00:57 | XMS_ITS | Clinical Summary ---
Author Organization [facility] Address [address] [place] [address] Care Team Providers Care Disease Intervention Specialist Name Role Phone Loni Duong Primary Care Pr ovider Allergies Active Allergy Reactions Criticality Noted Date Comments Codeine Itching Low Medications [id number]-[id number]-[id number]- iron fm-FA-vitK 18 mg iron-600 mcg-80 mcg [...] (05/23/2020): Added automatically from request for surgery [id number] Encounter for follow-up surveillance of breast c [...] on file Legal Sex Female 8:16 PM APPLIQUER ZIGZAG Gender Identity Not on file Sexual Orientation [...] Read Routine (OP Routine) 10/05/2023 9:39 AM APPLIQUER ZIGZAG Unspecified lump in axillary tail of the right breast COLONOSCOPY 06/13/2020 9:01 AM CDT from Last 3 Months or Most Recently Relevant to Health Maintenance Results * Diagnostic Mammogram Bilateral W Chetan (10/05/2023 9:39 AM APPLIQUER ZIGZAG) Anatomical Region Laterality Modality Breast Bilateral Mammography 10/05/2023 10:1 3 AM APPLIQUER ZIGZAG Impressions 10/05/2023 10:37 AM APPLIQUER ZIGZAG 1. Stable postsurgical changes of bilateral breast [...] Chantel Leo M.D. Narrative 10/05/2023 10:37 AM APPLIQUER ZIGZAG EXAMINATION: BILATERAL DIGITAL DIAGNOSTIC MAMMOGRAM INCLUDING CAD [...] Female Attending MD: Kal Ha M.D. Room: [facility]COPY ROOM 04 Note Status: Finalized Procedure: Colonoscopy Indications: Last colonoscopy: November 2015, Follow-up ofdiverticulitis Providers: Kal Ha M.D. Referring MD: Angel Vickers. Medicines: Monitored Anesthesia Care Complications: No immediate [...] Thescope was passed under direct vision. The [id number] introduced through the anus and advanced to the cecum, identified by appendiceal orifice and ileocecal valve.The colonoscopy was performed without difficulty. Thepatient tolerated the procedure well. The quality of the bowel preparation was evaluated using the BBPS ([place] Bowel Preparation Scale) with scores of: Right [...] Relevant to Health Maintenance Insurance ANTHEM ACCESS Member Subscriber Plan / Payer (Ef fective 2018-Present) Name:Alana Pal Relation to Subscriber:Self Name:LAANA PAL Payer ID:[id number] (NAIC) Type:[place] Address: [address] TRADITIONAL Member Subscriber Plan / Payer ( fective 2015-Present) Name:Alana Pal Relation to Subscriber:Spouse Name:CATRACHITO PAL JR Date of :1964 Payer ID:[id number] (NAIC) Type:[place] Address: [address] ACCESS OOS Member Subscriber Plan / Payer ( fective 2021-Present) Name:Alana Pal Relation to Subscriber:Self Name:Alana Pal Payer ID:[id number] (NAIC) Group ID:Not on file Type:[place] Address: [address] CHOICE PLUS Ozzy [address] CHOICE PLUS Ozzy [address] [facility] CHOICE PLUS Advance Directives For more information, please contact: [phone] * Full Code (Latest Code Status on File) Date Activated Date Inactivated Comments 06/13/2020 8:02 AM 06/13/2020 1:57 PM * Full Code Date Activated Date Inactivated Comments 09/01/2019 8:33 AM 09/01/2019 3:28 PM Care Teams Disease Intervention Specialist Relationship Specialty Start Date End Date Loni Duong PA PCP - General 11/19/16
--- OUTSIDE RECORDS SUMMARY | 2025-08-08 01:31 | XMS_ITS | Encounter Summary ---
Author Organization [facility] Address [address] [place] [address] Phone Care Team Providers Care Toe Lining Closer Name Role Phone Loni Duong Primary Care Pr ovider Encounter Details Date Type Department Care Team (Late st Contact Info) Description 12/06/2017 Orders Only [facility] ProviderVic MD [address] [place] [address] Social History Tobacco Use Types Packs/Day Years Used Date Smoking Tobacco: Never Comments Unknown Sex and Gender Information Value Date Recorded Sex Assigned at Not on file 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
--- OUTSIDE RECORDS SUMMARY | 2025-08-08 01:31 | XMS_ITS | Clinical Summary ---
Author Organization [facility] Address [address] [place] [address] Care Team Providers Care Control Equipment Electrician Name Role Phone Loni Marks Primary Care Pr ovider Source Comments [facility],non-owned Affiliates and Associated Physician Practices is amultiple site organization consisting of ambulatory clinics and hospital sitesin [place], [place], [place] and [place]. This disclosure is being madepursuant to the Care Everywhere program and may not contain all information available regarding this patient. Last updated 18.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 Gender Identity Not on file Sexual Orientation [...] to complete this topic Insurance [facility] SELF PAY NO INSURANCE Member Subscriber Plan / Payer (Ef fective for All Dates) Name:Alana Pla Member ID:Not on file Relation to Subscriber:Not on file Name:ALANA PAL Subscriber ID:Not on file (Home) Address: [address] [place] [id number] Payer ID:Not on file Group ID:Not on file Type:Self Pay Address: [place], [place] Care Teams Control Equipment Electrician Relationship Specialty Start Date End Date Loni Marks PA [address] [place] [address] PCP - General 11/29/18
--- OUTSIDE RECORDS SUMMARY | 2025-08-08 01:31 | XMS_ITS | Clinical Summary ---
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
--- OUTSIDE RECORDS SUMMARY | 2025-08-08 01:31 | XMS_ITS | Encounter Summary ---
Author Organization 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
--- OUTSIDE RECORDS SUMMARY | 2025-08-08 01:31 | XMS_ITS | Encounter Summary ---
Author Organization [facility] Address [address] [place] [address] Care Team Providers Care Bedspread Inspector Name Role Phone Loni Marks Primary Care Pr ovider Reason for Visit * Reason Onset Date Comments Future Appointment 12/12/2018 Encounter Details Date Type Department Care Team (Late st Contact Info) Description 12/12/2018 Telephone [facility] [address] [place] [address] Kyle Chanel Jr., MD [address] [place] [address] Future Appointment Social History Tobacco Use Types Packs/Day Years Used Date Smoking Tobacco: Never Assessed Comments Unknown Sex and Gender Information Value Date Recorded Sex Assigned at Not on file 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 Gender Identity Not on file Sexual Orientation Not on file documented as of this encounter Miscellaneous Notes * Telephone Encounter - Yue Vallejo - 12/12/2018 2:21 PM CDT PT would like for someone to give her a call about appointment tomorrow regarding if she needs results for her ct scan CB: [phone] documented in this encounter Plan of Treatment Not on file documented as of this encounter Visit Diagnoses Not on filedocumented in this encounter Care Teams Bedspread Inspector Relationship Specialty Start Date End Date Loni Marks PA [address] [place] [address] PCP - General 11/29/18 documented as of this encounter
--- NOTE | 2025-08-08 01:48 | ED.ABDPAIN ---
HPI - Abdominal Pain General Chief Complaint: Abdominal Pain <Kody Carmona MD - Last Filed: 08/08/25 19:21> Stated Complaint: Abd pain <Kody Carmona MD - Last Filed: 08/08/25 19:21> Time Seen by Provider: 08/08/25 01:14 <Kody Carmona MD - Last Filed: 08/08/25 19:21> History of Present Illness HPI narrative: 59-year-old female with a past medical history including previous diverticulitis flares, history of cholecystectomy, history of laparoscopy. Patient presents to the emergency department today with left lower quadrant abdominal discomfort. States the symptoms going on for last 2 days. Feel like her diverticulitis. No vomiting but she feels nauseous. Has not tried anything for symptom control as she does not like taking medications. Declined any analgesia medications at this time. No fever, chills, back pain. States that at the end of urination she gets a sensation that her bladder empties and then she gets pain in her left lower quadrant that worsens otherwise she has some baseline level of pain and discomfort there. No pain during urination or any blood in the urine or stool. No defecation or straining to urinate/defecate. No traumatic injuries or falls. Was otherwise in her normal state of health. <Kody Carmona MD - Last Filed: 08/08/25 19:21> Related Data Home Medications: Home Medications ?Medication ?Instructions ?Recorded ?Confirmed ?Last Taken ?Type cholecalciferol (vitamin D3) 50 50 mcg PO DAILY 03/25/23 08/02/25 06/27/25 History mcg (2,000 unit) capsule (Vitamin D3) multivit with minerals-iron 18 1 tablet PO DAILY 03/25/23 08/02/25 06/27/25 History mg-folic ac 400 mcg-vit K 25 mcg tablet (Adults Multivitamin) Saccharomyces boulardii 250 mg 250 mg PO BID 09/09/23 08/02/25 06/27/25 History capsule (Daily Probiotic (S. boulardii)) bile mfzyx-bcpe-rern-phenolpth 1 tablet PO DAILY 09/09/23 08/02/25 06/27/25 History tablet <Kody Carmona MD - Last Filed: 08/08/25 19:21> Allergies/Adverse Reactions: Allergies Allergy/AdvReac Type Severity Reaction Status Date / Time codeine Allergy Intermediate ITCHING/IRENE Verified 08/02/25 08:28 H oxycodone Allergy Mild Rash Verified 08/02/25 08:28 <Kody Carmona MD - Last Filed: 08/08/25 19:21> Review of Systems Review of Systems: As reviewed above in HPI <Kody Carmona MD - Last Filed: 08/08/25 19:21> All systems reviewed & are unremarkable except as noted in HPI and below <Kody Carmona MD - Last Filed: 08/08/25 19:21> [facility] Past Medical History Medical History: Medical History Cavovarus deformity of foot, acquired Arthritis of foot, degenerative Endometriosis Interstitial cystitis (chronic) without hematuria Diverticulitis <Kody Carmona MD - Last Filed: 08/08/25 19:21> Surgical History Surgical History: Surgical History H/O knee surgery S/P breast lumpectomy H/O laparoscopy Delivery by section History of cholecystectomy Laparoscopic cholecystectomy 2009 at [facility] Breast cancer Status post lumpectomy and axillary dissection with postoperative radiation therapy and chemotherapy. <Kody Carmona MD - Last Filed: 08/08/25 19:21> Family History Family History: Family History Father Hypertension Mother Diabetes mellitus Disorder of thyroid Sibling No problems noted. <Kody Carmona MD - Last Filed: 08/08/25 19:21> Social History Social History: Social History Smoking status: Never smoker Alcohol intake: never Alcohol use details: only scant, Communion Substance use: never Substance use type: does not use Current Housing: Decline to Answer Concerned About Future Housing: Decline to Answer Difficulty Paying Gas/Electric Bills: Decline to Answer Difficulty Paying for Meds: Decline to Answer Currently Unemployed: Decline to Answer Education: Decline to Answer Difficulty w/ Childcare or Family Care: Decline to Answer Living arrangements: with family Additional living arrangements comments: with sp Occupation/Education: unemployed Gender identity (if verbalized by the patient): Female Spiritual care concerns: No <Kody Carmona MD - Last Filed: 08/08/25 19:21> Exam Narrative: GENERAL: [Well-appearing, well-nourished, and in no acute distress.] HEAD: [Normocephalic, atraumatic.] EYES: [PERRLA and EOMI.] ENT: Nares clear, no rhinorrhea or epistaxis. Mucous membranes moist. NECK: Supple. CHEST: [Clear to auscultation. No respiratory distress.] HEART: [Regular rate and rhythm]. No murmur heard. [Normal peripheral pulses.] ABDOMEN: [Soft, nondistended], tender to palpation left lower quadrant, [No rigidity or guarding] EXTREMITIES: Normal range of motion. [No edema.] SKIN: Warm, dry, no rash. NEURO: [No focal deficits]. Alert and oriented [x3.] PSYCH: [Normal mood and affect.] <Kody Carmona MD - Last Filed: 08/08/25 19:21> Course Course Emergency Course: Course: Patient signed out to me pending results were CT abdomen pelvis. 59-year-old female with a history of diverticulitis recently diagnosed with interstitial cystitis presenting with abdominal pain. While it got worse over last 2 days it appears that this abdominal pain started in April of this year and she is had multiple medical evaluations including cystoscopy, colonoscopy an MRI of her lower back without a clear cause of her pain. On exam she says she has tenderness just proximal to her pubic bone and slightly to the left of midline. When I asked why she does not think this is just her interstitial cystitis she said that it is only on the left. Her workup here was unremarkable. CT abdomen pelvis was interpreted as no convincing signs of acute diverticulitis. Also signs of a cortical infarct versus infection of the kidney, however her urine is infected which supports the diagnosis of cortical infarct. Patient was re-evaluated at bedside. This is her typical pain. She declined all pain medications as they say the side effects they give her are worse than the pain itself. She has been instructed to follow-up with her primary care physician and to return if she develops any new or worsening symptoms. <Sheldon Tejeda MD - Last Filed: 08/08/25 08:25> Vital Signs Vital signs: Vital Signs Temperature 36.6 C 08/08/25 01:05 Pulse Rate 78 08/08/25 01:05 Respiratory Rate 16 08/08/25 01:05 Blood Pressure 157/85 H 08/08/25 01:05 Pulse Oximetry 97 08/08/25 01:05 Oxygen Delivery Room Air 08/08/25 01:05 Temperature 36.6 C 08/08/25 01:05 Pulse Rate 70 08/08/25 08:27 Respiratory Rate 16 08/08/25 08:27 Blood Pressure 134/74 08/08/25 08:27 Pulse Oximetry 100 08/08/25 08:27 Oxygen Delivery Room Air 08/08/25 01:05 <Kody Carmona MD - Last Filed: 08/08/25 19:21> Vital Signs Temperature 36.6 C 08/08/25 01:05 Pulse Rate 78 08/08/25 01:05 Respiratory Rate 16 08/08/25 01:05 Blood Pressure 157/85 H 08/08/25 01:05 Pulse Oximetry 97 08/08/25 01:05 Oxygen Delivery Room Air 08/08/25 01:05 Temperature 36.6 C 08/08/25 01:05 Pulse Rate 70 08/08/25 08:27 Respiratory Rate 16 08/08/25 08:27 Blood Pressure 134/74 08/08/25 08:27 Pulse Oximetry 100 08/08/25 08:27 Oxygen Delivery Room Air 08/08/25 01:05 <Sheldon Tejeda MD - Last Filed: 08/08/25 08:25> MDM - Abdominal Pain MDM Narrative Medical decision making narrative: 59-year-old female with a past medical history including previous diverticulitis flares, history of cholecystectomy, history of laparoscopy. Patient presents to the emergency department today with left lower quadrant abdominal discomfort. States the symptoms going on for last 2 days. Feel like her diverticulitis. No vomiting but she feels nauseous. Has not tried anything for symptom control as she does not like taking medications. Declined any analgesia medications at this time. No fever, chills, back pain. States that at the end of urination she gets a sensation that her bladder empties and then she gets pain in her left lower quadrant that worsens otherwise she has some baseline level of pain and discomfort there. No pain during urination or any blood in the urine or stool. No defecation or straining to urinate/defecate. No traumatic injuries or falls. Was otherwise in her normal state of health. Patient is hemodynamically stable. No tachycardia, fever, hypoxemia. Reproducible left lower quadrant pain but mild. Patient declines any pain medications but would like something for nausea. She was given Zofran and fluids. Laboratory studies obtained. CT scan of the abdomen pelvis obtained. Suspect diverticulitis versus less likely intra-abdominal infection, urinary tract infection or pyelonephritis, perforation or abscess. Laboratory studies are unremarkable. Patient remains hemodynamically stable. CT scan pending. Signed out to morning physician Dr. Tejeda pending read and final disposition. <Kody Carmona MD - Last Filed: 08/08/25 19:21> Lab Data Result diagrams: 08/08/25 01:17 08/08/25 01:17 <Kody Cramona MD - Last Filed: 08/08/25 19:21> Labs: Lab Results 08/08/25 08/08/25 Range/Units 01:17 01:26 WBC 6.1 (4.5-10.0) K/mm3 RBC 4.42 (4.2-5.4) M/mm3 Hgb 12.6 (12.0-15.0) g/dL Hct 39.5 (37.0-47.0) % MCV 89.4 (80-100) fl MCH 28.5 (26-34) pg MCHC 31.9 L (32-36) g/dl RDW 12.9 (11.5-14.5) % Plt Count 328 (150-375) k/mm3 MPV 8.8 (7.4-10.4) fl Immature Gran % (Auto) 0.3 (0-0.5) % Neut % (Auto) 52.0 (45.5-73.1) % Lymph % (Auto) 32.2 (18.3-44.2) % Lajas % (Auto) 10.7 H (2.6-8.5) % Eos % (Auto) 4.1 (0-4.4) % Baso % (Auto) 0.7 (0.2-1.2) % Lymph # (Auto) 1.95 (0.9-3.2) K/mm3 Lajas # (Auto) 0.7 H (0.1-0.6) K/mm3 Eos # (Auto) 0.3 (0-0.3) K/mm3 Baso # (Auto) 0.0 (0.0-0.1) K/mm3 Abs Immat Gran (auto) 0.02 (0.00-0.031) K/mm3 Absolute Neuts (auto) 3.2 (1.3-6.7) K/mm3 Absolute Nucleated RBC 0.000 (0.0-0.012) K/mm3 Nucleated RBC % 0.0 (0.0-0.2) % Sodium 137 (137-145) mmol/L Potassium 4.0 (3.4-5.0) mmol/L Chloride 102 (98-107) mmol/L Carbon Dioxide 26 (22-30) mmol/L Anion Gap 9 (4-12) mmol/L BUN 13 (7-17) mg/dL Creatinine 0.67 L (0.7-1.0) mg/dL Estim Creat Clear Calc 95 ml/min Estimated GFR > 60 (59 - ) Glucose 114 H (65-110) mg/dL Calcium 9.8 (8.4-10.2) mg/dL Total Bilirubin 0.6 (0.2-1.3) mg/dL AST 37 H (14-36) U/L ALT 34 (6-35) U/L Alkaline Phosphatase 102 (38-126) U/L Total Protein 7.4 (6.3-8.2) g/dL Albumin 4.4 (3.5-5.1) g/dL Lipase 171 (23-300) U/L Urine Color Yellow (Yellow) Urine Appearance Clear (Clear) Urine pH 5.5 (5.0-9.0) Ur Specific Bulger 1.009 (1.001-1.035) Urine Protein Negative (Negative) mg/dL Urine Glucose (UA) Negative (Negative) mg/dL Urine Ketones Negative (Negative) mg/dL Ur Blood (Man) Negative (Negative) Urine Nitrate Negative (Negative) Urine Bilirubin Negative (Negative) Urine Urobilinogen 0.2 (<2.0) mg/dL Leukocyte Esterase Rfl Trace H (Negative) RAYA/UL Urine RBC 0-2 (0-2) /hpf Urine WBC 0-5 (0-3) /hpf Ur Squamous Epith Cells None seen (Few) /hpf Urine Bacteria None seen /hpf Urine Casts 0-2 <Kody Carmona MD - Last Filed: 08/08/25 19:21> Lab Results 08/08/25 08/08/25 Range/Units 01:17 01:26 WBC 6.1 (4.5-10.0) K/mm3 RBC 4.42 (4.2-5.4) M/mm3 Hgb 12.6 (12.0-15.0) g/dL Hct 39.5 (37.0-47.0) % MCV 89.4 (80-100) fl MCH 28.5 (26-34) pg MCHC 31.9 L (32-36) g/dl RDW 12.9 (11.5-14.5) % Plt Count 328 (150-375) k/mm3 MPV 8.8 (7.4-10.4) fl Immature Gran % (Auto) 0.3 (0-0.5) % Neut % (Auto) 52.0 (45.5-73.1) % Lymph % (Auto) 32.2 (18.3-44.2) % Lajas % (Auto) 10.7 H (2.6-8.5) % Eos % (Auto) 4.1 (0-4.4) % Baso % (Auto) 0.7 (0.2-1.2) % Lymph # (Auto) 1.95 (0.9-3.2) K/mm3 Lajas # (Auto) 0.7 H (0.1-0.6) K/mm3 Eos # (Auto) 0.3 (0-0.3) K/mm3 Baso # (Auto) 0.0 (0.0-0.1) K/mm3 Abs Immat Gran (auto) 0.02 (0.00-0.031) K/mm3 Absolute Neuts (auto) 3.2 (1.3-6.7) K/mm3 Absolute Nucleated RBC 0.000 (0.0-0.012) K/mm3 Nucleated RBC % 0.0 (0.0-0.2) % Sodium 137 (137-145) mmol/L Potassium 4.0 (3.4-5.0) mmol/L Chloride 102 (98-107) mmol/L Carbon Dioxide 26 (22-30) mmol/L Anion Gap 9 (4-12) mmol/L BUN 13 (7-17) mg/dL Creatinine 0.67 L (0.7-1.0) mg/dL Estim Creat Clear Calc 95 ml/min Estimated GFR > 60 (59 - ) Glucose 114 H (65-110) mg/dL Calcium 9.8 (8.4-10.2) mg/dL Total Bilirubin 0.6 (0.2-1.3) mg/dL AST 37 H (14-36) U/L ALT 34 (6-35) U/L Alkaline Phosphatase 102 (38-126) U/L Total Protein 7.4 (6.3-8.2) g/dL Albumin 4.4 (3.5-5.1) g/dL Lipase 171 (23-300) U/L Urine Color Yellow (Yellow) Urine Appearance Clear (Clear) Urine pH 5.5 (5.0-9.0) Ur Specific Bulger 1.009 (1.001-1.035) Urine Protein Negative (Negative) mg/dL Urine Glucose (UA) Negative (Negative) mg/dL Urine Ketones Negative (Negative) mg/dL Ur Blood (Man) Negative (Negative) Urine Nitrate Negative (Negative) Urine Bilirubin Negative (Negative) Urine Urobilinogen 0.2 (<2.0) mg/dL Leukocyte Esterase Rfl Trace H (Negative) RAYA/UL Urine RBC 0-2 (0-2) /hpf Urine WBC 0-5 (0-3) /hpf Ur Squamous Epith Cells None seen (Few) /hpf Urine Bacteria None seen /hpf Urine Casts 0-2 <Sheldon Tejeda MD - Last Filed: 08/08/25 08:25> Imaging Data Radiologist's impression: ITS Impressions Abdomen/Pelvis CT 08/08/25 07:52 IMPRESSION: 1. No definite acute findings. 2. No convincing evidence of diverticulitis. 3. Subtle tiny focus left kidney pyelonephritis not excluded but probably merely chronic cortical infarct. <Kody Carmona MD - Last Filed: 08/08/25 19:21> ITS Impressions Abdomen/Pelvis CT 08/08/25 07:52 IMPRESSION: 1. No definite acute findings. 2. No convincing evidence of diverticulitis. 3. Subtle tiny focus left kidney pyelonephritis not excluded but probably merely chronic cortical infarct. <Sheldon Tejeda MD - Last Filed: 08/08/25 08:25> Discharge Plan Discharge Clinical Impression: Abdominal pain, LLQ <Kody Carmona MD - Last Filed: 08/08/25 19:21> Patient Disposition: Home <Kody Carmona MD - Last Filed: 08/08/25 19:21> Condition: Stable <Kody Carmona MD - Last Filed: 08/08/25 19:21> Instructions: Antibiotic Form, Abdominal Pain (ED) <Kody Carmona MD - Last Filed: 08/08/25 19:21> Additional Instructions: You seen in the emergency department for abdominal pain. Your workup here did not reveal definitive cause. Please continue your workup with her primary care physician if you develop any new or worsening symptoms return to ED for re-evaluation. <Kody Carmona MD - Last Filed: 08/08/25 19:21> Patient Language: Bulgarian <Kody Carmona MD - Last Filed: 08/08/25 19:21> Prescriptions: No Action Saccharomyces boulardii [Daily Probiotic (S. boulardii)] 250 mg capsule 250 mg PO BID bile spdzu-mxbh-rpff-phenolpth Tablet 1 tablet PO DAILY cholecalciferol (vitamin D3) [Vitamin D3] 50 mcg (2,000 unit) Capsule 50 mcg PO DAILY Adults Multivitamin 18 mg iron-400 mcg-25 mcg Tablet 1 tablet PO DAILY <Kody Carmona MD - Last Filed: 08/08/25 19:21> Follow-up/Referrals: Rhoda,SYLVIA Ivey [Primary Care Provider, Unknown] <Kody Carmona MD - Last Filed: 08/08/25 19:21>
[2025-08-08 01:51] LABS: Hematocrit 39.5 % (37.0-47.0); Hemoglobin 12.6 g/dL (12.0-15.0); Immature Granulocyte Percent A 0.3 % (0-0.5); Lymphocytes Absolute Auto 1.95 K/mm3 (0.9-3.2); Mean Corpuscular HGB Conc 31.9 g/dl (32-36); Mean Corpuscular Hemoglobin 28.5 pg (26-34); Mean Corpuscular Volume 89.4 fl (80-100); Nucleated Red Blood Cells Absolute Auto 0.000 K/mm3 (0.0-0.012); Nucleated Red Blood Cells Perc 0.0 % (0.0-0.2); Platelet Count Result 328 k/mm3 (150-375); Red Blood Count 4.42 M/mm3 (4.2-5.4); White Blood Count 6.1 K/mm3 (4.5-10.0)
[2025-08-08 01:56] LABS: Add Urine Microscopic? YES; Appearance Urine Clear (Clear); Glucose Urine UA Negative (Negative); Leukocyte Esterase Ur Trace LEU/UL (Negative); Nitrate Urine Negative (Negative); Non Pathogenic Casts 0-2; Specific Grav Ur 1.009 (1.001-1.035)
[2025-08-08] MEDS: LACTATED RINGERS 1,000 ML 999 ML IV CONT (02:00)
[2025-08-08] MEDS: ONDANSETRON INJ 4 MG/2 ML VIAL IV PUSH (02:01)
[2025-08-08 02:10] LABS: Alanine Aminotransferase 34 U/L (6-35); Albumin Level 4.4 g/dL (3.5-5.1); Alkaline Phosphatase 102 U/L (38-126); Anion Gap 9 mmol/L (4-12); Aspartate Amino Transferase 37 U/L (14-36); Bilirubin,Total 0.6 mg/dL (0.2-1.3); Blood Urea Nitrogen 13 mg/dL (7-17); Calcium 9.8 mg/dL (8.4-10.2); Carbon Dioxide 26 mmol/L (22-30); Chloride 102 mmol/L (98-107); Estimated CRCL calculation 95 ml/min; Estimated Glomerular Filt Rate > 60; Glucose 114 mg/dL (65-110); Lipase 171 U/L (23-300); Potassium 4.0 mmol/L (3.4-5.0); Sodium 137 mmol/L (137-145); Total Protein 7.4 g/dL (6.3-8.2)
== END 2025-08-08 08:28 | disposition home or self-care (01) ==
PROVIDERS: Emergency Provider Student in an Organized Health Care Education/Training Program; PCP Physician Assistant
DX: R10.32 Left lower quadrant pain (principal); N80.9 Endometriosis, unspecified; N30.10 Interstitial cystitis (chronic) without hematuria; M19.079 Primary osteoarthritis, unspecified ankle and foot; Z85.3 Personal history of malignant neoplasm of breast; Z92.3 Personal history of irradiation; Z92.21 Personal history of antineoplastic chemotherapy; Z90.49 Acquired absence of other specified parts of digestive tract; R93.41 Abnormal radiologic findings on diagnostic imaging of renal pelvis, ureter, or bladder
CPT/HCPCS: 36415; 74177; 80053; 81001; 83690; 85025; 96361; 96374; 96375; 99284; J2405; J7120; Q9967